=== PATIENT | male | born 1970 ===

== ENCOUNTER 2016-07-22 14:25 | Inpatient (IN) | payer MEDICAID ==
[2016-07-22 14:26] VITALS: BMI 24.3
[2016-07-22 14:38] VITALS: O2SAT 96
[2016-07-22 15:43] LABS: RBC URINE 1 /hpf (0-3); URINE BILIRUBIN NEGATIVE (NEGATIVE); URINE BLOOD NEGATIVE (NEGATIVE); URINE COLOR Yellow (YELLOW); URINE GLUCOSE (UA) NORMAL (Normal); URINE KETONE NEGATIVE (NEGATIVE); URINE LEUKOCYTE ESTERASE NEG Leu/uL (Negative); URINE PROTEIN NEGATIVE (NEGATIVE); URINE UROBILINOGEN NORMAL mg/dL (0.2-1.0); WBC URINE 2 /hpf (0-5)
[2016-07-22 15:44] LABS: BASO % 0.5 % (0.0-2.0); EOS % 0.4 % (0.0-4.0); HEMATOCRIT 33.6 % (35.0-51.0); LYMPH # 0.2 K/uL (1.0-4.3); LYMPH % 10.8 % (20.0-40.0); MEAN CORPUSCULAR HEMOGLOBIN 25.8 pg (27.0-31.0); MEAN CORPUSCULAR HGB CONC 32.5 g/dL (33.0-37.0); MEAN PLATELET VOLUME 8.2 fL (7.2-11.7); MONO # 0.2 K/uL (0.0-0.8); RED CELL DISTRIBUTION WIDTH 15.8 % (11.5-14.5)
[2016-07-22 15:48] LABS: CHLORIDE 102 mmol/L (98-107); POTASSIUM 4.1 mmol/L (3.6-5.2); SODIUM 139 mmol/L (132-148)
[2016-07-22 15:50] LABS: AST/SGOT 51 U/L (17-59); BILIRUBIN,TOTAL 0.8 mg/dL (0.2-1.3); CARBON DIOXIDE 23 mmol/L (22-30); GFR AFRICAN-AMERICAN > 60; MEAN CELL VOLUME 79.4 fL (80.0-94.0); WHITE BLOOD COUNT 2.1 K/uL (4.8-10.8)
[2016-07-22 15:51] LABS: ALB/GLOB RATIO 1.3 (1.0-2.1); ALCOHOL SERUM < 10 mg/dl (0-10); ALKALINE PHOSPHATASE 55 U/L (38-126); ALT/SGPT 31 U/L (21-72); BLOOD UREA NITROGEN 17 mg/dL (9-20); CALCIUM 8.2 mg/dl (8.6-10.4); GLUCOSE,RANDOM 137 mg/dL (75-110); TOTAL PROTEIN 6.3 g/dL (6.3-8.3)
--- NOTE | 2016-07-22 16:04 | C.PDOC ---
History Of Present Illness 45 y/o male with bipolar disorder presents to ed with suicidal ideation after learning that his son was killed in a car accident last night. pt sts he has not used his psych medications in one week since he ran out. 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 pt was taking lovenox. no sob.pt plan to stab himself. denies hi and ah. Time Seen by Provider: 07/22/16 15:15 Chief Complaint (Nursing): Psychiatric Evaluation Past Medical History Reviewed: Historical Data, Nursing Documentation, Vital Signs Vital Signs: Last Vital Signs Temp 98.2 F 07/22/16 14:35 Pulse 102 H 07/22/16 14:35 Resp 22 07/22/16 14:35 BP 137/87 07/22/16 14:35 Pulse Ox 96 07/22/16 17:29 - Medical History PMH: Anemia, Anxiety, Bipolar Disorder, Depression, Hepatitis (C), Personality Disorder, Schizophrenia, Seizures (Epileptic) Denies: Alzheimer's Disease, Dementia, Diabetes, HIV (Negative), HTN, Malignancy, Migraine, Multiple Sclerosis, Paranoia, Parkinson's Disease, Depression, Post Traumatic Stress Disorder, Chronic Kidney Disease, Sickle Cell Disease, Sexually Transmitted Disease, TIA Surgical History: Comment Only: CABG (?) Other Surgeries: cardiac valve repair - [facility] Procedures BONE MARROW BIOPSY (05/19/14) CLOSURE SKIN & SUBCUTANEOUS NEC (12/29/13) DETOXIFICATION SERVICES FOR SUBSTANCE ABUSE TREATMENT (11/20/15) DRAINAGE OF RIGHT INGUINAL REGION, PERCUTANEOUS APPROACH (05/15/16) DRUG DETOXIFICATION (10/06/14) EXCIS DEBRIDE OF WOUND, INFECT, OR BURN (12/29/13) GROUP BEEF GRADER FOR SUBSTANCE ABUSE TREATMENT, PSYCHOEDUCATION (12/29/15) GROUP PSYCHOTHERAPY (10/31/15) INDIVID PSYCHOTHERAP NEC (11/20/14) INDIVIDUAL PSYCHOTHERAPY, SUPPORTIVE (10/31/15) INJECT/INFUSE NEC (12/18/13) OTHER GROUP THERAPY (11/20/14) OTHER SKIN & SUBQ I D (12/29/13) PSYCHIA INTERV/EVAL NEC (08/11/14) PSYCHIAT DRUG THERAP NEC (08/28/14) TETANUS TOXOID ADMINIST (01/08/13) ULTRASONOGRAPHY OF RIGHT AND LEFT HEART, TRANSESOPHAGEAL (05/15/16) Family History: States: Unknown Family Hx - Social History Hx Tobacco Use: Yes Hx Alcohol Use: No Hx Substance Use: Yes (HEROIN) - Immunization History Hx Tetanus Toxoid Vaccination: Yes (01/08/13) Hx Influenza Vaccination: No Hx Pneumococcal Vaccination: No Review Of Systems Constitutional: Negative for: Fever, Chills Eyes: Negative for: Pain Cardiovascular: Negative for: Palpitations, Orthopnea Respiratory: Negative for: Cough, Shortness of Breath Gastrointestinal: Negative for: Nausea, Vomiting Neurological: Negative for: Weakness, Numbness Psych: Positive for: Anxiety, Suicidal ideation Physical Exam - Physical Exam Appears: Non-toxic, No Acute Distress Skin: Normal Color, Warm, Dry Head: Atraumatic, Normacephalic Chest: Symmetrical, No Deformity, No Tenderness, Other (vertical well healing scar from recent surgery) Cardiovascular: Rhythm Regular, No Murmur Respiratory: Normal Breath Sounds, No Rales, No Rhonchi, No Stridor Gastrointestinal/Abdominal: Bowel Sounds, Soft, No Tenderness Extremity: Normal ROM, No Pedal Edema, No Calf Tenderness Neurological/Psych: Oriented x3, Normal Speech, Normal Cognition, Other ( general shakiness to arms and legs, no seiszure like activity) ED Course And Treatment - Laboratory Results Result Diagrams: 07/22/16 15:36 07/22/16 15:36 ECG: Interpreted By Me, Viewed By Me ECG Rhythm: Sinus Rhythm Interpretation Of ECG: prlpomged qt 410 O2 Sat by Pulse Oximetry: 96 Medical Decision Making Medical Decision Making: pt medically cleared fpr psyciatric eval. recommend inpatient medicine consult for low wbc and elevate sugar of 137 Disposition Discussed With : Diamante Barahona Doctor Will See Patient In The: Hospital - Disposition Disposition: HOSPITALIZED Disposition Time: 17:23 Condition: STABLE - Clinical Impression Clinical Impression: Bipolar 1 disorder, depressed, Opioid use disorder, moderate, dependence Decision To Admit - Pt Status Changed To: Hospital Disposition Of: Inpatient - Admit Certification Admit to Inpatient:: After my assessment, the patient will require hospitalization for at least two midnights. This is because of the severity of symptoms shown, intensity of services needed, and/or the medical risk in this patient being treated as an outpatient. - InPatient: Physician Admission Certification: I certify that this patient requires 2 or more midnights of care for the following reason:: for psychiatric stabilization - . Bed Request Type: Psychiatry Admitting Physician: Diamante Barahona Patient Diagnosis: Bipolar 1 disorder, depressed, Opioid use disorder, moderate, dependence
--- NOTE | 2016-07-23 09:45 | PCM.PSYCH ---
Initial Psychiatric Evaluation - Initial Psychiatric Evaluation Type of Admission: Voluntary Legal Status: Capacity Chief Complaint (in patient's own words): I was feeling depressed and suicidal History of Present Illness and Precipitating Events: Patient is a 45 years old male, who lives alone and unemployed, came to the hospital with depressed mood and suicidal ideation with a plan to cut himself. Patient is well known to the service writer. He has been admitted at [facility] multiple times because of long history of depression, heroin use and cocaine use. Patient was just discharged [facility] last month. As per the patient he relapsed on heroin and cocaine and stopped taking his medications. Yesterday he injected almost 7 bags of heroin and 2 bags of cocaine, became increasingly depressed and developed suicidal ideation so he came to the hospital. He reports depressed mood, feelings of hopelessness and helplessness, poor sleep and poor appetite. He reports anhedonia and auditory hallucinations, to kill himself. He also reports persecutory delusions that someone is following him. However he denies any visual hallucinations and homicidal ideation. He denies any manic symptoms. He denies any substance abuse or drinking. Family psych history: (hospital chart) Brother- Unidentified psych condition, commit suicide Medical history: h/o heart murmur, h/o seizures, Hepatitis C Current Medications: Active Medications Generic Name Dose Route Start Last Admin Trade Name Freq PRN Reason Stop Dose Admin Aspirin 81 mg 07/23/16 10:00 Aspirin Chewable PO DAILY CORNEL Furosemide 40 mg 07/23/16 10:00 Lasix PO DAILY CORNEL Gabapentin 100 mg 07/22/16 18:00 07/22/16 23:00 Neurontin PO 100 mg TID CORNEL Administration Hydroxyzine HCl 50 mg 07/22/16 17:49 07/22/16 22:59 Atarax PO 50 mg Q6H PRN Administration Anxiety Levetiracetam 500 mg 07/22/16 18:00 07/22/16 23:00 Keppra PO 500 mg BID CORNEL Administration Metoprolol Tartrate 25 mg 07/22/16 18:00 07/22/16 23:45 Lopressor PO Not Given BID CORNEL Multivitamins 1 tab 07/23/16 10:00 Hexavitamin PO DAILY CORNEL Trazodone HCl 100 mg 07/22/16 22:00 07/22/16 22:59 Desyrel PO 100 mg HS CORNEL Administration Past Psychiatric History - Past Psychiatric History Previous Treatment History: Inpatient Pertinent Medical Hx (Current Medical&Sleep Prob, Allergies): Allergies Allergy/AdvReac Type Severity Reaction Status Date / Time haloperidol [From Haldol] Allergy REDNESS Verified 02/04/16 00:13 haloperidol lactate Allergy REDNESS Verified 02/04/16 00:13 [From Haldol] turkey Allergy red Uncoded 02/04/16 00:13 blotches Multivitamin [Multi-Vitamin Daily] 1 tab PO DAILY 05/13/16 Amoxicillin/Clavulanate [Augmentin 875 MG-125 MG Tab] 1 tab PO BID #14 tab 05/28 Aspirin [Aspirin Chewable] 81 mg PO DAILY #30 chew 05/28/16 Benztropine [Cogentin] 1 mg PO BID #60 tab 05/28/16 Furosemide [Lasix] 40 mg PO DAILY #30 tab 05/28/16 Gabapentin [Neurontin] 100 mg PO TID #90 cap 05/28/16 Metoprolol Tartrate [Lopressor] 25 mg PO BID #60 tab 05/28/16 QUEtiapine [SEROquel] 150 mg PO HS #30 tab 05/28/16 Sertraline [Zoloft] 50 mg PO DAILY #30 tab 05/28/16 hydrOXYzine HCl [Atarax] 50 mg PO QID #120 tab 05/28/16 levETIRAcetam [Keppra] 500 mg PO BID #60 tab 05/28/16 traZODone [Desyrel] 100 mg PO HS #30 tab 05/28/16 Cephalexin [Keflex] 500 mg PO BID #10 capsule 05/29/16 Review of Systems - Review of Systems All systems: reviewed and no additional remarkable complaints except - Psychiatric Psychiatric: Anxiety, Auditory Hallucinations, Change in Appetite, Depression, Irritability, Paranoia, Suicidal Ideation Mental Status Examination - Personal Presentation Personal Presentation: Looks stated age - Affect Affect: Constricted, Depressed - Motor Activity Motor Activity: Psychomotor Retardation - Reliability in Providing Information Reliability in Providing Information: Good - Speech Speech: Organized - Mood Mood: Depressed, Anxious - Formal Thought Process Formal Thought Process: Hallucinations, Delusions, Paranoia - Hallucinations/Delusions Hallucinations: Visual Delusions: Persecution - Obsessions/Compulsions Obsessions: No Compulsions: No - Cognitive Functions Orientation: Person, Place, Situation, Time Sensorium: Alert Attention/Concentration: Attentive Abstract Thinking: [place] Estimate of Intelligence: Below average Judgement: Imparied, as evidence by: Poor judgement, Imparied, as evidence by: Lack of insight into illness - Risk Risk: Suicidal, Withdrawal, Diminished functioning - Strength & Assets Inventory Strength & Assets Inventory: Family support - Limitations Limitations: Living alone DSM 5 DX - DSM 5 DSM 5 Diagnosis: Major depressive disorder recurrent, severe with psychotic features Opioid use disorder, severe Opioid withdrawal Cocaine use disorder, severe - Recommended/Plan of Treatment Treatment Recommendations and Plan of Treatment: Major depressive disorder recurrent, severe with psychotic features CBT Psychoeducation Supportive therapy, individual therapy Start Neurontin 100 mg by mouth 3 times a day Start Trazodone 100 mg PO Q HS Opioid use disorder severe CBT Psychoeducation Supportive therapy, individual therapy Use [place] for abstinence Opioid withdrawal CBT Psychoeducation Supportive therapy, individual therapy Clonidine when necessary Methadone taper Cocaine use disorder, severe Monitor signs and symptoms Use [place] for abstinence h/o Heart murmur, Continue prescribed medications (Lasix, Metoprolol) Monitor signs symptoms h/o Seizures, Continue prescribed medications (Keppra) Monitor signs symptoms Hepatitis C Monitor signs symptoms - Smoking Cessation Smoking Cessation Initiated: No
[2016-07-23] MEDS: Multiple Vitamins Tab PO SCH (12:43)
[2016-07-24] MEDS: Multiple Vitamins Tab PO SCH (09:14)
--- NOTE | 2016-07-24 11:31 | PCM.PYCHPN ---
Psychiatric Progress Note - Psychiatric Progress Note Patient seen today, length of contact: 15 min Patient Chief Complaint: I am feeling depressed Problems Identified/Issues Discussed: Patient seen and evaluated, chart reviewed and discussed with the nurse. Today patient reports depressed mood and remained isolated, withdrawn and confined to his room. However he reports withdrawal symptoms including cramps, back pain, nausea and sweating. He is taking medications and denies any side effects. Supportive therapy and psychoeducation were given. Medication Change: Yes (methadone taper) Medical Record Reviewed: Yes Mental Status Examination - Cognitive Function Orientation: Person, Place, Situation, Time Memory: Intact Attention: WNL Concentration: Poor Association: WNL Fund of Knowledge: Poor - Mood Mood: Depressed, Anxious - Affect Affect: Constricted, Depressed - Formal Thought Process Formal Thought Process: Hallucinations, Delusions, Paranoia - Suicidal Ideation Suicidal Ideation: No - Homicidal Ideation Homicidal Ideation: No Goal/Treatment Plan - Goal/Treatment Plan Need for Continued Stay: Discharge may exacerbated symptoms, Severe functional impairment Progress Toward Problem(s) and Goals/Treatment Plan: Major depressive disorder recurrent, severe with psychotic features CBT Psychoeducation Supportive therapy, individual therapy Neurontin 100 mg by mouth 3 times a day Trazodone 100 mg PO Q HS Opioid use disorder severe CBT Psychoeducation Supportive therapy, individual therapy Use [place] for abstinence Opioid withdrawal CBT Psychoeducation Supportive therapy, individual therapy Clonidine when necessary Methadone taper Cocaine use disorder, severe Monitor signs and symptoms Use [place] for abstinence h/o Heart murmur, Continue prescribed medications (Lasix, Metoprolol) Monitor signs symptoms h/o Seizures, Continue prescribed medications (Keppra) Monitor signs symptoms Hepatitis C Monitor signs symptoms - Smoking Cessation Smoking Cessation Initiated: No
[2016-07-25] MEDS: Multiple Vitamins Tab PO SCH (09:23)
--- NOTE | 2016-07-25 16:15 | PCM.PYCHPN ---
Psychiatric Progress Note - Psychiatric Progress Note Patient seen today, length of contact: 15 min Patient Chief Complaint: I'm still feeling depressed Problems Identified/Issues Discussed: Patient seen and evaluated, chart reviewed and discussed. As per staff patient remained isolated, withdrawn and depressed.He reports depressed mood but denies any feelings of hopelessness or helplessness. He reports improvement in his voices. He still reports withdrawal symptoms including cramps, back pain, and sweating. He is taking medications and denies any side effects. Supportive therapy and psychoeducation were given. Medication Change: Yes (methadone taper) Medical Record Reviewed: Yes Mental Status Examination - Cognitive Function Orientation: Person, Place, Situation, Time Memory: Intact Attention: WNL Concentration: Poor Association: WNL Fund of Knowledge: Poor - Mood Mood: Depressed, Anxious - Affect Affect: Constricted, Depressed - Speech Speech: Soft - Formal Thought Process Formal Thought Process: Delusions, Paranoia - Suicidal Ideation Suicidal Ideation: No - Homicidal Ideation Homicidal Ideation: No Goal/Treatment Plan - Goal/Treatment Plan Need for Continued Stay: Discharge may exacerbated symptoms, Severe functional impairment Progress Toward Problem(s) and Goals/Treatment Plan: Major depressive disorder recurrent, severe with psychotic features CBT Psychoeducation Supportive therapy, individual therapy Start Neurontin 100 mg by mouth 3 times a day Start Trazodone 100 mg PO Q HS Opioid use disorder severe CBT Psychoeducation Supportive therapy, individual therapy Use [place] for abstinence Opioid withdrawal CBT Psychoeducation Supportive therapy, individual therapy Clonidine when necessary Methadone taper Cocaine use disorder, severe Monitor signs and symptoms Use [place] for abstinence h/o Heart murmur, Continue prescribed medications (Lasix, Metoprolol) Monitor signs symptoms h/o Seizures, Continue prescribed medications (Keppra) Monitor signs symptoms Hepatitis C Monitor signs symptoms - Smoking Cessation Smoking Cessation Initiated: No
[2016-07-26] MEDS: Multiple Vitamins Tab PO SCH (09:41)
--- NOTE | 2016-07-26 15:23 | PCM.PYCHPN ---
Psychiatric Progress Note - Psychiatric Progress Note Patient seen today, length of contact: 17 min Patient Chief Complaint: I am not hearing any voices now Problems Identified/Issues Discussed: Patient seen and evaluated, chart reviewed and discussed. Patient reports improvement in his mood and improvement in the voices. He also reports improvement in the withdrawal symptoms. But he remained isolated and withdrawn. He is taking medications and denies any side effects. Supportive therapy and psychoeducation were given. Aftercare was discussed with the patient Medication Change: Yes (methadone taper, start Zoloft) Medical Record Reviewed: Yes Mental Status Examination - Cognitive Function Orientation: Person, Place, Situation, Time Memory: Intact Attention: WNL Concentration: Poor Association: WNL Fund of Knowledge: Poor - Mood Mood: Depressed, Anxious - Affect Affect: Constricted, Depressed - Speech Speech: Soft - Formal Thought Process Formal Thought Process: No Impairment - Suicidal Ideation Suicidal Ideation: No - Homicidal Ideation Homicidal Ideation: No Goal/Treatment Plan - Goal/Treatment Plan Need for Continued Stay: Discharge may exacerbated symptoms, Severe functional impairment Progress Toward Problem(s) and Goals/Treatment Plan: Major depressive disorder recurrent, severe with psychotic features CBT Psychoeducation Supportive therapy, individual therapy Neurontin 100 mg by mouth 2 times a day Trazodone 100 mg PO Q HS Opioid use disorder severe CBT Psychoeducation Supportive therapy, individual therapy Use [place] for abstinence Opioid withdrawal CBT Psychoeducation Supportive therapy, individual therapy Clonidine when necessary Methadone taper Cocaine use disorder, severe Monitor signs and symptoms Use [place] for abstinence h/o Heart murmur, Continue prescribed medications (Lasix, Metoprolol) Monitor signs symptoms h/o Seizures, Continue prescribed medications (Keppra) Monitor signs symptoms Hepatitis C Monitor signs symptoms - Smoking Cessation Smoking Cessation Initiated: No
[2016-07-27] MEDS: Multiple Vitamins Tab PO SCH (10:55)
--- NOTE | 2016-07-27 13:43 | PCM.PYCHPN ---
Psychiatric Progress Note - Psychiatric Progress Note Patient seen today, length of contact: 17 min Patient Chief Complaint: I m feeling much better Problems Identified/Issues Discussed: Patient seen and evaluated, chart reviewed and discussed. Patient reports improvement in the depressive symptoms and the withdrawal symptoms. He wants to go back to live with his father in [place]. He is not hallucinating anymore and he has started coming out of his room and has started socializing. He denies any suicidal ideation or homicidal ideation .He is taking medications and denies any side effects. Supportive therapy and psychoeducation were given. Medication Change: No Medical Record Reviewed: Yes Mental Status Examination - Cognitive Function Orientation: Person, Place, Situation, Time Memory: Intact Attention: WNL Concentration: WNL Association: WNL Fund of Knowledge: Poor - Mood Mood: Anxious - Affect Affect: Constricted, Depressed - Speech Speech: Soft - Formal Thought Process Formal Thought Process: No Impairment - Suicidal Ideation Suicidal Ideation: No - Homicidal Ideation Homicidal Ideation: No Goal/Treatment Plan - Goal/Treatment Plan Need for Continued Stay: Discharge may exacerbated symptoms, Severe functional impairment Progress Toward Problem(s) and Goals/Treatment Plan: Major depressive disorder recurrent, severe with psychotic features CBT Psychoeducation Supportive therapy, individual therapy Neurontin 100 mg by mouth 2 times a day Trazodone 100 mg PO Q HS Zoloft 50 mg PO Daily Opioid use disorder severe CBT Psychoeducation Supportive therapy, individual therapy Use [place] for abstinence Opioid withdrawal CBT Psychoeducation Supportive therapy, individual therapy Clonidine when necessary Methadone taper Cocaine use disorder, severe Monitor signs and symptoms Use [place] for abstinence h/o Heart murmur, Continue prescribed medications (Lasix, Metoprolol) Monitor signs symptoms h/o Seizures, Continue prescribed medications (Keppra) Monitor signs symptoms Hepatitis C Monitor signs symptoms - Smoking Cessation Smoking Cessation Initiated: No
[2016-07-27 16:18] VITALS: PULSE 72
[2016-07-28 06:58] VITALS: RESP 18; TEMP 98.1
[2016-07-28] MEDS: Multiple Vitamins Tab PO SCH (10:26)
[2016-07-28 10:34] VITALS: BP 128/89
--- NOTE | 2016-07-28 10:34 | PCM.PYCHDC ---
Mental Status Examination - Mental Status Examination Orientation: Person, Place, Situation, Time Memory: Intact Mood: Neutral Affect: Constricted Speech: Soft Attention: WNL Concentration: WNL Association: WNL Fund of Knowledge: WNL Formal Thought Process: No Impairment Description of patient's judgement and insight: good, fair Psychotic Thoughts and Behaviors: denies any AVH Suicidal Ideation: No Current Homicidal Ideation?: No Discharge Summary - Discharge Note Reason for Hospitalization: Patient is a 45 years old male, who lives alone and unemployed, came to the hospital with depressed mood and suicidal ideation with a plan to cut himself. Patient is well known to the data analyst report writer. He has been admitted at [facility] multiple times because of long history of depression, heroin use and cocaine use. Patient was just discharged [facility] last month. As per the patient he relapsed on heroin and cocaine and stopped taking his medications. Yesterday he injected almost 7 bags of heroin and 2 bags of cocaine, became increasingly depressed and developed suicidal ideation so he came to the hospital. He reports depressed mood, feelings of hopelessness and helplessness, poor sleep and poor appetite. He reports anhedonia and auditory hallucinations, to kill himself. He also reports persecutory delusions that someone is following him. However he denies any visual hallucinations and homicidal ideation. He denies any manic symptoms. He denies any substance abuse or drinking. Family psych history: (hospital chart) Brother- Unidentified psych condition, commit suicide Medical history: h/o heart murmur, h/o seizures, Hepatitis C Consultations:: List each consultation separately and include: 1. Reason for request. 2. Findings. 3. Follow-up Summary of Hospital Course include:: 1. Description of specific treatment plan utilized for patients during their course of treatmen. 2. Summarize the time- course for resolution of acute symptoms and/or regressed behaviors. 3. Describe issues identified and worked on during hospitalization. 4. Describe medication utilized. 5. Describe medical problems identified and treated. 6. Reassessment of suicide risk Summary of Hospital Course: During the course of his stay, patient (pt) started progressively improving and he no longer remained irritable, depressed, and suicidal. His mood was improved and he started attending groups and meetings and started socializing. He no longer had any withdrawal symptoms. Patient denied any feelings of hopelessness, helplessness, and worthlessness, denied any problem with the sleep or appetite, denied suicidal ideation or homicidal ideation. Pt denied any auditory or visual hallucinations. Some changes were made in his current medications and patient was discharged on following medications. He tolerated these medications very well and denied any side effects. - Final Diagnosis (DSM 5) Condition upon Discharge: STABLE DSM 5: Major depressive disorder recurrent, severe with psychotic features Opioid use disorder severe Opioid withdrawal Cocaine use disorder, severe Disposition: HOME/ ROUTINE Follow-up Treatment Plan: Education: Pt was educated and counseled about the risks and benefits of taking and not taking medications. Pt was educated and counseled about the risks of drinking and abusing drugs. Pt was educated and counseled to go to the ER or call 911 if pt develop suicidal ideation or homicidal ideation, worsening of symptoms or severe side effects of the meds. Prescriptions/Medication Reconciliation: traZODone [Desyrel] 100 mg PO HS #30 tab levETIRAcetam [Keppra] 500 mg PO BID #60 tab Gabapentin [Neurontin] 100 mg PO BID #60 capsule Sertraline [Zoloft] 50 mg PO DAILY #30 tab - Smoking Cessation Smoking Cessation Medication prescribed: No - Antipsychotic Medications Pt discharged on 2 or more routine antipsychotic medications: No
== END 2016-07-28 11:30 | disposition home or self-care (01) | DRG 430 ==
LOC: C.ER 14:25 → C.5E 17:27
PROVIDERS: ADMIT Psychiatry & Neurology Psychiatry; ATTEND Psychiatry & Neurology Psychiatry
PROC: GZ3ZZZZ Medication Management (ICD-10-PCS; principal; 2016-07-22)
PROC: HZ36ZZZ Individual Counseling for Substance Abuse Treatment, Psychoeducation (ICD-10-PCS; 2016-07-22)
PROC: HZ56ZZZ Individual Psychotherapy for Substance Abuse Treatment, Psychoeducation (ICD-10-PCS; 2016-07-22)
PROC: HZ59ZZZ Individual Psychotherapy for Substance Abuse Treatment, Supportive (ICD-10-PCS; 2016-07-22)
PROC: HZ89ZZZ Medication Management for Substance Abuse Treatment, Other Replacement Medication (ICD-10-PCS; 2016-07-22)
PROC: GZHZZZZ Group Psychotherapy (ICD-10-PCS; 2016-07-22)
PROC: GZ56ZZZ Individual Psychotherapy, Supportive (ICD-10-PCS; 2016-07-22)
DX: F33.3 Major depressive disorder, recurrent, severe with psychotic symptoms (principal); R45.851 Suicidal ideations; F14.20 Cocaine dependence, uncomplicated; F11.23 Opioid dependence with withdrawal; B18.2 Chronic viral hepatitis C; R01.1 Cardiac murmur, unspecified; G40.909 Epilepsy, unspecified, not intractable, without status epilepticus; F17.210 Nicotine dependence, cigarettes, uncomplicated

== ENCOUNTER 2016-08-12 23:32 | Emergency (ER) | payer MEDICAID ==
[2016-08-12 23:33] VITALS: BMI 24.3
--- NOTE | 2016-08-13 00:26 | C.PDOC ---
History Of Present Illness Patient is a 45 year old male who presents to the ER with suicidal ideation for the past few days. Patient states he wants to cut himself. Patient has a PMHx of psychiatric disorder. Has no physical complaints at this time. Time Seen by Provider: 08/12/16 23:52 Chief Complaint (Nursing): Psychiatric Evaluation History Per: Patient History/Exam Limitations: no limitations Onset/Duration Of Symptoms: Hrs Current Symptoms Are (Timing): Still Present Suicide/Self Injury Attempted (Context): None Modifying Factor(s): None Associated Symptoms: Suicidal Thoughts, Suicidal Plan Past Medical History Reviewed: Historical Data, Nursing Documentation, Vital Signs Vital Signs: Last Vital Signs Temp 98.2 F 08/13/16 02:03 Pulse 68 08/13/16 02:03 Resp 17 08/13/16 02:03 BP 136/63 08/13/16 02:03 Pulse Ox 97 08/13/16 03:21 - Medical History PMH: Anemia, Anxiety, Bipolar Disorder, CHF, Depression, Hepatitis (C), Personality Disorder, Schizophrenia, Seizures (Epileptic) Surgical History: Comment Only: CABG (?) - [facility] Procedures BONE MARROW BIOPSY (05/19/14) CLOSURE SKIN & SUBCUTANEOUS NEC (12/29/13) DETOXIFICATION SERVICES FOR SUBSTANCE ABUSE TREATMENT (11/20/15) DRAINAGE OF RIGHT INGUINAL REGION, PERCUTANEOUS APPROACH (05/15/16) DRUG DETOXIFICATION (10/06/14) EXCIS DEBRIDE OF WOUND, INFECT, OR BURN (12/29/13) GROUP RESIDENTIAL INSURANCE INSPECTOR FOR SUBSTANCE ABUSE TREATMENT, PSYCHOEDUCATION (12/29/15) GROUP PSYCHOTHERAPY (07/22/16) INDIV RESIDENTIAL INSURANCE INSPECTOR FOR SUBSTANCE ABUSE TREATMENT, PSYCHOEDUCATION (07/22/16) INDIV PSYCHOTHERAPY FOR SUBSTANCE ABUSE TREATMENT, SUPPORT (07/22/16) INDIV PSYCHOTHERAPY FOR SUBSTANCE ABUSE, PSYCHOEDUCATION (07/22/16) INDIVID PSYCHOTHERAP NEC (11/20/14) INDIVIDUAL PSYCHOTHERAPY, SUPPORTIVE (07/22/16) INJECT/INFUSE NEC (12/18/13) MEDICATION MANAGEMENT (07/22/16) MEDS MGMT FOR SUBSTANCE ABUSE TREATMENT, OTH REPL MED (07/22/16) OTHER GROUP THERAPY (11/20/14) OTHER SKIN & SUBQ I D (12/29/13) PSYCHIA INTERV/EVAL NEC (08/11/14) PSYCHIAT DRUG THERAP NEC (08/28/14) TETANUS TOXOID ADMINIST (01/08/13) ULTRASONOGRAPHY OF RIGHT AND LEFT HEART, TRANSESOPHAGEAL (05/15/16) Family History: States: Unknown Family Hx - Social History Hx Tobacco Use: Yes Hx Alcohol Use: No Hx Substance Use: Yes - Immunization History Hx Tetanus Toxoid Vaccination: Yes (01/08/13) Hx Influenza Vaccination: No Hx Pneumococcal Vaccination: No Review Of Systems Constitutional: Negative for: Fever, Chills Gastrointestinal: Negative for: Nausea, Vomiting, Diarrhea Psych: Positive for: Suicidal ideation Physical Exam - Physical Exam Appears: Well, Non-toxic, Other (Verbalizing about hurting himself) Skin: Normal Color, Warm, Dry Head: Atraumatic, Normacephalic Oral Mucosa: Moist Chest: Symmetrical, No Tenderness Cardiovascular: Rhythm Regular, No Murmur Respiratory: Normal Breath Sounds, No Rales, No Rhonchi, No Wheezing Gastrointestinal/Abdominal: Soft, No Tenderness Neurological/Psych: Oriented x3, Normal Speech, Normal Cognition, Other (Alert, concious.) ED Course And Treatment - Laboratory Results Result Diagrams: 08/13/16 00:35 08/13/16 00:35 Interpretation Of Abnormal: Patient has history of chronic leucopenia as noted from old charts reviewed. O2 Sat by Pulse Oximetry: 97 (Room air) Pulse Ox Interpretation: Normal Progress Note: Blood work and urinalysis ordered. Dr. Dunbar was notified, patient was seen by crisis who cleared him for discharge and advised him to follow up at clinic. Disposition Discussed With : Diamante Barahona Counseled Patient/Family Regarding: Diagnosis - Disposition Referrals: [facility] at [facility] [Outside] Disposition: HOME/ ROUTINE Disposition Time: 06:00 Condition: STABLE Instructions: Depression (DC), Narcotic Abuse (ED), Polysubstance Abuse (ED) - POA Present On Arrival: None - Clinical Impression Clinical Impression: Polysubstance abuse, Opiate abuse, continuous, Leucopenia, Depressive disorder - Scribe Statement The provider has reviewed the documentation as recorded by the Scribe Mor Kee All medical record entries made by the Scribe were at my direction and personally dictated by me. I have reviewed the chart and agree that the record accurately reflects my personal performance of the history, physical exam, medical decision making, and the department course for this patient. I have also personally directed, reviewed, and agree with the discharge instructions and disposition.
[2016-08-13 00:42] LABS: BASO % 0.2 % (0.0-2.0); EOS % 0.6 % (0.0-4.0); HEMATOCRIT 30.7 % (35.0-51.0); LYMPH # 0.4 K/uL (1.0-4.3); LYMPH % 25.4 % (20.0-40.0); MEAN CORPUSCULAR HEMOGLOBIN 26.3 pg (27.0-31.0); MEAN CORPUSCULAR HGB CONC 33.8 g/dL (33.0-37.0); MEAN PLATELET VOLUME 6.8 fL (7.2-11.7); MONO # 0.2 K/uL (0.0-0.8); MONO % 13.8 % (0.0-10.0); NRBC % 0.1 % (0.0-2.0); RED CELL DISTRIBUTION WIDTH 17.4 % (11.5-14.5)
[2016-08-13 00:48] LABS: CHLORIDE 107 mmol/L (98-107)
[2016-08-13 00:49] LABS: POTASSIUM 3.4 mmol/L (3.6-5.2); SODIUM 143 mmol/L (132-148); WHITE BLOOD COUNT 1.6 K/uL (4.8-10.8)
[2016-08-13 00:51] LABS: ALB/GLOB RATIO 1.2 (1.0-2.1); AST/SGOT 42 U/L (17-59); BILIRUBIN,TOTAL 0.8 mg/dL (0.2-1.3); CARBON DIOXIDE 24 mmol/L (22-30); GFR AFRICAN-AMERICAN > 60; TOTAL PROTEIN 5.9 g/dL (6.3-8.3)
[2016-08-13 00:52] LABS: RBC URINE 2 /hpf (0-3); URINE BILIRUBIN NEGATIVE (NEGATIVE); URINE BLOOD NEGATIVE (NEGATIVE); URINE COLOR Amber (YELLOW); URINE GLUCOSE (UA) NORMAL (Normal); URINE KETONE TRACE mg/dL (NEGATIVE); URINE LEUKOCYTE ESTERASE NEG Leu/uL (Negative); URINE PROTEIN 1+ mg/dL (NEGATIVE); WBC URINE 1 /hpf (0-5)
[2016-08-13 00:52] LABS: ALCOHOL SERUM < 10 mg/dl (0-10); ALKALINE PHOSPHATASE 51 U/L (38-126); ALT/SGPT 24 U/L (21-72); BLOOD UREA NITROGEN 16 mg/dL (9-20); CALCIUM 8.1 mg/dl (8.6-10.4); GLUCOSE,RANDOM 103 mg/dL (75-110)
[2016-08-13 06:13] VITALS: BP 131/70; PULSE 72; RESP 18; TEMP 97.8; O2SAT 98
== END 2016-08-13 06:13 | disposition home or self-care (01) ==
LOC: C.ER 23:32
DX: F32.89 Other specified depressive episodes (principal); F11.10 Opioid abuse, uncomplicated; F19.10 Other psychoactive substance abuse, uncomplicated; D72.819 Decreased white blood cell count, unspecified

== ENCOUNTER 2016-08-20 14:18 | Emergency (ER) | payer MEDICAID ==
[2016-08-20 14:18] VITALS: BMI 24.3
[2016-08-20 14:49] VITALS: RESP 18
--- NOTE | 2016-08-20 15:10 | C.PDOC ---
History Of Present Illness 45 year old patient, with a past medical history of anemia, anxiety, Hepatitis C , personality disorder, CHF, depression, bipolar disorder, schizophrenia, and epileptic seizures, is brought to the ED by ambulance complaining of suicidal ideation. Patient admits he has not been compliant with his medications for the past week. He was thinking of cutting himself. He has attempted it previously with a razor, but was stopped by his mother. Patient also attempted to swallow multiple pills about 1 year ago. Patient reports he is homeless and uses heroin and cocaine regularly. He notes he had heart surgery about 2months ago for endocarditis. Patient denies fever, chills, nausea, vomiting, or any other physical complaints at this time. Time Seen by Provider: 08/20/16 14:40 Chief Complaint (Nursing): Psychiatric Evaluation History Per: Patient, EMS History/Exam Limitations: no limitations Onset/Duration Of Symptoms: Other Current Symptoms Are (Timing): Still Present Suicide/Self Injury Attempted (Context): None Modifying Factor(s): Cocaine, Other (heroin) Severity: None Pain Scale Rating Of: 0 Associated Symptoms: Suicidal Thoughts, Suicidal Plan Recent travel outside of the [place]: No Additional History Per: EMS Past Medical History Reviewed: Historical Data, Nursing Documentation, Vital Signs Vital Signs: Last Vital Signs Temp 98.6 F 08/20/16 17:29 Pulse 84 08/20/16 17:29 Resp 18 08/20/16 17:29 BP 114/68 08/20/16 17:29 Pulse Ox 99 08/20/16 17:29 - Medical History PMH: Anemia, Anxiety, Bipolar Disorder, CHF, Depression, Hepatitis (C), Personality Disorder, Schizophrenia, Seizures (Epileptic) Surgical History: Comment Only: CABG (?) - [facility] Procedures BONE MARROW BIOPSY (05/19/14) CLOSURE SKIN & SUBCUTANEOUS NEC (12/29/13) DETOXIFICATION SERVICES FOR SUBSTANCE ABUSE TREATMENT (11/20/15) DRAINAGE OF RIGHT INGUINAL REGION, PERCUTANEOUS APPROACH (05/15/16) DRUG DETOXIFICATION (10/06/14) EXCIS DEBRIDE OF WOUND, INFECT, OR BURN (12/29/13) GROUP TELEPHONIC NURSE FOR SUBSTANCE ABUSE TREATMENT, PSYCHOEDUCATION (12/29/15) GROUP PSYCHOTHERAPY (07/22/16) INDIV TELEPHONIC NURSE FOR SUBSTANCE ABUSE TREATMENT, PSYCHOEDUCATION (07/22/16) INDIV PSYCHOTHERAPY FOR SUBSTANCE ABUSE TREATMENT, SUPPORT (07/22/16) INDIV PSYCHOTHERAPY FOR SUBSTANCE ABUSE, PSYCHOEDUCATION (07/22/16) INDIVID PSYCHOTHERAP NEC (11/20/14) INDIVIDUAL PSYCHOTHERAPY, SUPPORTIVE (07/22/16) INJECT/INFUSE NEC (12/18/13) MEDICATION MANAGEMENT (07/22/16) MEDS MGMT FOR SUBSTANCE ABUSE TREATMENT, OTH REPL MED (07/22/16) OTHER GROUP THERAPY (11/20/14) OTHER SKIN & SUBQ I D (12/29/13) PSYCHIA INTERV/EVAL NEC (08/11/14) PSYCHIAT DRUG THERAP NEC (08/28/14) TETANUS TOXOID ADMINIST (01/08/13) ULTRASONOGRAPHY OF RIGHT AND LEFT HEART, TRANSESOPHAGEAL (05/15/16) Family History: States: Unknown Family Hx - Social History Hx Tobacco Use: Yes Hx Alcohol Use: Yes Hx Substance Use: Yes - Immunization History Hx Tetanus Toxoid Vaccination: Yes (01/08/13) Hx Influenza Vaccination: No Hx Pneumococcal Vaccination: No Review Of Systems Except As Marked, All Systems Reviewed And Found Negative. Constitutional: Negative for: Fever, Chills Gastrointestinal: Negative for: Nausea, Vomiting Psych: Positive for: Anxiety, Suicidal ideation Physical Exam - Physical Exam Appears: Non-toxic, Unkempt, Other (disheveled) Skin: Warm, Dry Head: Atraumatic, Normacephalic Neck: Normal ROM, Supple Chest: Symmetrical, Other (midline cardiac scar) Cardiovascular: Rhythm Regular Respiratory: No Accessory Muscle Use Back: Normal Inspection Extremity: Normal ROM, Other (chronic edema to hands and feet) Neurological/Psych: Oriented x3 Gait: Steady ED Course And Treatment - Laboratory Results Result Diagrams: 08/20/16 16:47 08/20/16 16:47 O2 Sat by Pulse Oximetry: 100 (room air) Pulse Ox Interpretation: Normal Progress Note: Case discussed with Crisis who will evaluate the patient at bedside. Medical Decision Making Medical Decision Making: patient seen and cleared by crisis. Disposition - Disposition Disposition: HOME/ ROUTINE Disposition Time: 17:50 Condition: STABLE Instructions: Bipolar Disorder (ED) Forms: General Discharge Instructions - Clinical Impression Clinical Impression: Bipolar 1 disorder - Scribe Statement The provider has reviewed the documentation as recorded by the Scribe Bonnie Machado Provider Attestation: All medical record entries made by the Scribe were at my direction and personally dictated by me. I have reviewed the chart and agree that the record accurately reflects my personal performance of the history, physical exam, medical decision making, and the department course for this patient. I have also personally directed, reviewed, and agree with the discharge instructions and disposition.
[2016-08-20 16:53] LABS: BASO % 0.5 % (0.0-2.0); EOS % 0.5 % (0.0-4.0); HEMATOCRIT 35.3 % (35.0-51.0); LYMPH # 0.4 K/uL (1.0-4.3); LYMPH % 17.9 % (20.0-40.0); MEAN CELL VOLUME 78.7 fL (80.0-94.0); MEAN CORPUSCULAR HEMOGLOBIN 25.6 pg (27.0-31.0); MEAN CORPUSCULAR HGB CONC 32.5 g/dL (33.0-37.0); MEAN PLATELET VOLUME 7.7 fL (7.2-11.7); MONO # 0.3 K/uL (0.0-0.8); MONO % 11.8 % (0.0-10.0); NRBC % 0.1 % (0.0-2.0); WHITE BLOOD COUNT 2.4 K/uL (4.8-10.8)
[2016-08-20 17:00] LABS: CHLORIDE 101 mmol/L (98-107); POTASSIUM 3.6 mmol/L (3.6-5.2); SODIUM 137 mmol/L (132-148)
[2016-08-20 17:02] LABS: BILIRUBIN,TOTAL 1.1 mg/dL (0.2-1.3); CARBON DIOXIDE 24 mmol/L (22-30); GFR AFRICAN-AMERICAN > 60
[2016-08-20 17:03] LABS: ALB/GLOB RATIO 1.1 (1.0-2.1); ALKALINE PHOSPHATASE 60 U/L (38-126); ALT/SGPT 44 U/L (21-72); AST/SGOT 60 U/L (17-59); BLOOD UREA NITROGEN 10 mg/dL (9-20); CALCIUM 8.3 mg/dl (8.6-10.4); GLUCOSE,RANDOM 100 mg/dL (75-110); TOTAL PROTEIN 6.3 g/dL (6.3-8.3)
[2016-08-20 17:04] LABS: ALCOHOL SERUM < 10 mg/dl (0-10)
[2016-08-20 17:08] LABS: RBC URINE < 1 /hpf (0-3); URINE BACTERIA RARE (<OCC); URINE BILIRUBIN NEGATIVE (NEGATIVE); URINE BLOOD NEGATIVE (NEGATIVE); URINE COLOR Yellow (YELLOW); URINE GLUCOSE (UA) NORMAL (Normal); URINE KETONE NEGATIVE (NEGATIVE); URINE LEUKOCYTE ESTERASE NEG Leu/uL (Negative); URINE PROTEIN NEGATIVE (NEGATIVE); URINE UROBILINOGEN NORMAL mg/dL (0.2-1.0); WBC URINE < 1 /hpf (0-5)
[2016-08-20 17:51] VITALS: O2SAT 100
[2016-08-20 18:04] VITALS: BP 123/72; PULSE 82; TEMP 98.5
== END 2016-08-20 18:06 | disposition home or self-care (01) ==
LOC: C.ER 14:18
DX: F31.9 Bipolar disorder, unspecified (principal)

== ENCOUNTER 2016-09-16 00:29 | Emergency (ER) | payer MEDICAID ==
[2016-09-16 00:29] VITALS: BMI 24.3
[2016-09-16 00:44] VITALS: O2SAT 98
--- NOTE | 2016-09-16 00:52 | C.PDOC ---
History Of Present Illness Patient is a 46 year old male who presents to the ER with depression and suicidal ideation. Patient states he is homeless and ran out of his medications 2 weeks ago. Denies any physical complaints at this time. Time Seen by Provider: 09/16/16 00:45 Chief Complaint (Nursing): Psychiatric Evaluation History Per: Patient History/Exam Limitations: no limitations Onset/Duration Of Symptoms: Hrs Current Symptoms Are (Timing): Still Present Suicide/Self Injury Attempted (Context): None Modifying Factor(s): None Associated Symptoms: Depression, Suicidal Thoughts. denies: Suicidal Plan Recent travel outside of the [place]: No Past Medical History Reviewed: Historical Data, Nursing Documentation, Vital Signs Vital Signs: Last Vital Signs Temp 98.5 F 09/16/16 00:37 Pulse 86 09/16/16 02:57 Resp 12 09/16/16 02:57 BP 112/72 09/16/16 02:57 Pulse Ox 98 09/16/16 04:18 - Medical History PMH: Anemia, Anxiety, Bipolar Disorder, CHF, Depression, Hepatitis (C), Personality Disorder, Schizophrenia, Seizures (Epileptic) Surgical History: Comment Only: CABG (?) Other Surgeries: CABG - [facility] Procedures BONE MARROW BIOPSY (05/19/14) CLOSURE SKIN & SUBCUTANEOUS NEC (12/29/13) DETOXIFICATION SERVICES FOR SUBSTANCE ABUSE TREATMENT (11/20/15) DRAINAGE OF RIGHT INGUINAL REGION, PERCUTANEOUS APPROACH (05/15/16) DRUG DETOXIFICATION (10/06/14) EXCIS DEBRIDE OF WOUND, INFECT, OR BURN (12/29/13) GROUP MATERIAL REQUIREMENTS WORKER FOR SUBSTANCE ABUSE TREATMENT, PSYCHOEDUCATION (12/29/15) GROUP PSYCHOTHERAPY (07/22/16) INDIV MATERIAL REQUIREMENTS WORKER FOR SUBSTANCE ABUSE TREATMENT, PSYCHOEDUCATION (07/22/16) INDIV PSYCHOTHERAPY FOR SUBSTANCE ABUSE TREATMENT, SUPPORT (07/22/16) INDIV PSYCHOTHERAPY FOR SUBSTANCE ABUSE, PSYCHOEDUCATION (07/22/16) INDIVID PSYCHOTHERAP NEC (11/20/14) INDIVIDUAL PSYCHOTHERAPY, SUPPORTIVE (07/22/16) INJECT/INFUSE NEC (12/18/13) MEDICATION MANAGEMENT (07/22/16) MEDS MGMT FOR SUBSTANCE ABUSE TREATMENT, OTH REPL MED (07/22/16) OTHER GROUP THERAPY (11/20/14) OTHER SKIN & SUBQ I D (09/13/14) PSYCHIA INTERV/EVAL NEC (08/11/14) PSYCHIAT DRUG THERAP NEC (08/28/14) TETANUS TOXOID ADMINIST (01/08/13) ULTRASONOGRAPHY OF RIGHT AND LEFT HEART, TRANSESOPHAGEAL (05/15/16) Family History: States: Unknown Family Hx - Social History Hx Tobacco Use: Yes Hx Alcohol Use: No Hx Substance Use: Yes - Immunization History Hx Tetanus Toxoid Vaccination: Yes (01/08/13) Hx Influenza Vaccination: No Hx Pneumococcal Vaccination: No Review Of Systems Constitutional: Negative for: Fever, Chills Gastrointestinal: Negative for: Nausea, Vomiting, Diarrhea Physical Exam - Physical Exam Appears: Well, Non-toxic, No Acute Distress Skin: Normal Color, Warm, Dry Head: Atraumatic, Normacephalic Oral Mucosa: Moist Chest: Other (Sternotomy scar on midline chest form previous bypass surgery) Cardiovascular: Rhythm Regular, No Murmur Respiratory: Normal Breath Sounds, No Rales, No Rhonchi, No Wheezing Gastrointestinal/Abdominal: Soft, No Tenderness Neurological/Psych: Oriented x3, Normal Speech, Normal Cognition ED Course And Treatment - Laboratory Results Result Diagrams: 09/16/16 01:33 09/16/16 01:33 ECG: Interpreted By Me, Viewed By Me ECG Rhythm: Sinus Rhythm ECG Interpretation: No Acute Changes, Abnormal Interpretation Of ECG: prolonged QT interval Rate From EC O2 Sat by Pulse Oximetry: 98 Pulse Ox Interpretation: Normal Progress Note: Crisis called for evaluation. Disposition Discussed With : Mell Almazan (discharge-ff up) Counseled Patient/Family Regarding: Diagnosis - Disposition Referrals: [facility] at [facility] [Outside] Disposition: HOME/ ROUTINE Disposition Time: 04:15 Condition: STABLE Instructions: Polysubstance Abuse (ED) - POA Present On Arrival: None - Clinical Impression Clinical Impression: Polysubstance abuse - Scribe Statement The provider has reviewed the documentation as recorded by the Scribe Mor Kee All medical record entries made by the Scribe were at my direction and personally dictated by me. I have reviewed the chart and agree that the record accurately reflects my personal performance of the history, physical exam, medical decision making, and the department course for this patient. I have also personally directed, reviewed, and agree with the discharge instructions and disposition.
[2016-09-16 01:42] LABS: BASO % 0.4 % (0.0-2.0); EOS % 0.4 % (0.0-4.0); LYMPH # 0.3 K/uL (1.0-4.3); LYMPH % 8.3 % (20.0-40.0); MEAN CELL VOLUME 79.1 fL (80.0-94.0); MEAN CORPUSCULAR HEMOGLOBIN 26.1 pg (27.0-31.0); MEAN PLATELET VOLUME 7.3 fL (7.2-11.7); MONO # 0.2 K/uL (0.0-0.8); MONO % 7.4 % (0.0-10.0); PLATELET COUNT 78 K/uL (130-400); RED CELL DISTRIBUTION WIDTH 17.5 % (11.5-14.5); WHITE BLOOD COUNT 3.4 K/uL (4.8-10.8)
[2016-09-16 01:44] LABS: RBC URINE < 1 /hpf (0-3); URINE BILIRUBIN NEGATIVE (NEGATIVE); URINE BLOOD NEGATIVE (NEGATIVE); URINE COLOR Yellow (YELLOW); URINE GLUCOSE (UA) NORMAL (Normal); URINE KETONE NEGATIVE (NEGATIVE); URINE LEUKOCYTE ESTERASE NEG Leu/uL (Negative); URINE PROTEIN NEGATIVE (NEGATIVE); URINE UROBILINOGEN NORMAL mg/dL (0.2-1.0); WBC URINE < 1 /hpf (0-5)
[2016-09-16 01:48] LABS: CHLORIDE 100 mmol/L (98-107)
[2016-09-16 01:49] LABS: POTASSIUM 3.5 mmol/L (3.6-5.2); SODIUM 139 mmol/L (132-148)
[2016-09-16 01:51] LABS: ALKALINE PHOSPHATASE 71 U/L (38-126); ALT/SGPT 29 U/L (21-72); AST/SGOT 36 U/L (17-59); BILIRUBIN,TOTAL 0.8 mg/dL (0.2-1.3); BLOOD UREA NITROGEN 17 mg/dL (9-20); CALCIUM 8.3 mg/dl (8.6-10.4); CARBON DIOXIDE 27 mmol/L (22-30); GFR AFRICAN-AMERICAN > 60; GLUCOSE,RANDOM 84 mg/dL (75-110); TOTAL PROTEIN 6.5 g/dL (6.3-8.3)
[2016-09-16 01:52] LABS: ALCOHOL SERUM < 10 mg/dl (0-10)
[2016-09-16 02:25] LABS: NEUTROPHIL 83 % (50-75); TOTAL CELLS COUNTED 100
[2016-09-16 05:57] VITALS: BP 114/65; PULSE 74; RESP 18; TEMP 98.4
--- NOTE | 2016-09-17 20:09 | CARD ---
APPROVED REPORT EKG Measurement Heart [id number] <Conclusion> Normal sinus rhythm Prolonged QT Abnormal ECG
== END 2016-09-16 06:21 | disposition home or self-care (01) ==
LOC: C.ER 00:29
DX: F19.10 Other psychoactive substance abuse, uncomplicated (principal)

== ENCOUNTER 2016-12-04 01:07 | Inpatient (IN) | payer MEDICAID, OTHER ==
[2016-12-04 01:08] VITALS: BMI 24.3
[2016-12-04 01:58] LABS: RBC URINE 9 /hpf (0-3); URINE BACTERIA RARE (<OCC); URINE BILIRUBIN NEGATIVE (NEGATIVE); URINE BLOOD NEGATIVE (NEGATIVE); URINE COLOR Amber (YELLOW); URINE GLUCOSE (UA) NORMAL (Normal); URINE KETONE TRACE mg/dL (NEGATIVE); URINE LEUKOCYTE ESTERASE NEG Leu/uL (Negative); URINE PROTEIN 1+ mg/dL (NEGATIVE); WBC URINE 3 /hpf (0-5)
--- NOTE | 2016-12-04 02:30 | C.PDOC ---
History Of Present Illness 46 year old male who presents to the ER with a complaint of feeling depressed and having suicidal thoughts that began tonight. Patient admits to heroin and cocaine abuse; last use was this morning. Denies physical complaints at this time. Chief Complaint (Nursing): Psychiatric Evaluation History Per: Patient History/Exam Limitations: no limitations Onset/Duration Of Symptoms: Hrs Current Symptoms Are (Timing): Still Present Suicide/Self Injury Attempted (Context): None Modifying Factor(s): Narcotics, Cocaine Associated Symptoms: Suicidal Thoughts. denies: Depression, Suicidal Plan Involuntary Hold By: None Recent travel outside of the [place]: No Past Medical History Reviewed: Historical Data, Nursing Documentation, Vital Signs Vital Signs: Last Vital Signs Temp 98.6 F 12/04/16 02:48 Pulse 92 H 12/04/16 02:48 Resp 16 12/04/16 02:48 BP 130/76 12/04/16 02:48 Pulse Ox 97 12/04/16 02:48 - Medical History PMH: Anemia, Anxiety, Bipolar Disorder, CHF, Depression, Hepatitis (C, B), HIV, Personality Disorder, Schizophrenia, Seizures (Epileptic) Surgical History: Comment Only: CABG (?) - [facility] Procedures BONE MARROW BIOPSY (05/19/14) CLOSURE SKIN & SUBCUTANEOUS NEC (12/29/13) DETOXIFICATION SERVICES FOR SUBSTANCE ABUSE TREATMENT (11/20/15) DRAINAGE OF RIGHT INGUINAL REGION, PERCUTANEOUS APPROACH (05/15/16) DRUG DETOXIFICATION (10/06/14) EXCIS DEBRIDE OF WOUND, INFECT, OR BURN (12/29/13) GROUP COLOR SEPARATION PHOTOGRAPHER FOR SUBSTANCE ABUSE TREATMENT, PSYCHOEDUCATION (12/29/15) GROUP PSYCHOTHERAPY (07/22/16) INDIV COLOR SEPARATION PHOTOGRAPHER FOR SUBSTANCE ABUSE TREATMENT, PSYCHOEDUCATION (07/22/16) INDIV PSYCHOTHERAPY FOR SUBSTANCE ABUSE TREATMENT, SUPPORT (07/22/16) INDIV PSYCHOTHERAPY FOR SUBSTANCE ABUSE, PSYCHOEDUCATION (07/22/16) INDIVID PSYCHOTHERAP NEC (11/20/14) INDIVIDUAL PSYCHOTHERAPY, SUPPORTIVE (07/22/16) INJECT/INFUSE NEC (12/18/13) MEDICATION MANAGEMENT (07/22/16) MEDS MGMT FOR SUBSTANCE ABUSE TREATMENT, OTH REPL MED (07/22/16) OTHER GROUP THERAPY (11/20/14) OTHER SKIN & SUBQ I D (12/29/13) PSYCHIA INTERV/EVAL NEC (08/11/14) PSYCHIAT DRUG THERAP NEC (08/28/14) TETANUS TOXOID ADMINIST (01/08/13) ULTRASONOGRAPHY OF RIGHT AND LEFT HEART, TRANSESOPHAGEAL (05/15/16) Family History: States: Unknown Family Hx - Social History Hx Tobacco Use: Yes Hx Alcohol Use: No Hx Substance Use: Yes - Immunization History Hx Tetanus Toxoid Vaccination: Yes (01/08/13) Hx Influenza Vaccination: No Hx Pneumococcal Vaccination: No Review Of Systems Constitutional: Negative for: Fever, Chills Gastrointestinal: Negative for: Nausea, Vomiting, Diarrhea Psych: Positive for: Suicidal ideation Physical Exam - Physical Exam Appears: Non-toxic, No Acute Distress, Other (Verbalizing suicidal ideation) Skin: Normal Color, Warm, Dry Head: Atraumatic, Normacephalic Oral Mucosa: Moist Chest: Symmetrical, No Tenderness Cardiovascular: Rhythm Regular, No Murmur Respiratory: Normal Breath Sounds, No Rales, No Rhonchi, No Wheezing Gastrointestinal/Abdominal: Soft, No Tenderness Neurological/Psych: Oriented x3, Normal Speech, Normal Cognition ED Course And Treatment - Laboratory Results Result Diagrams: 12/04/16 02:28 12/04/16 02:28 O2 Sat by Pulse Oximetry: 97 (Room air) Pulse Ox Interpretation: Normal Progress Note: Crisis notified. Disposition Discussed With Dr.: Adam Plaza Doctor Will See Patient In The: Hospital Counseled Patient/Family Regarding: Diagnosis - Disposition Disposition: HOSPITALIZED Disposition Time: 02:30 Condition: STABLE - POA Present On Arrival: None - Clinical Impression Clinical Impression: Schizoaffective disorder - Scribe Statement The provider has reviewed the documentation as recorded by the Scribjair Kee All medical record entries made by the Nghiaibjair were at my direction and personally dictated by me. I have reviewed the chart and agree that the record accurately reflects my personal performance of the history, physical exam, medical decision making, and the department course for this patient. I have also personally directed, reviewed, and agree with the discharge instructions and disposition.
[2016-12-04 02:40] LABS: CHLORIDE 103 mmol/L (98-107); SODIUM 139 mmol/L (132-148)
[2016-12-04 02:41] LABS: POTASSIUM 3.2 mmol/L (3.6-5.2)
[2016-12-04 02:43] LABS: ALKALINE PHOSPHATASE 68 U/L (38-126); ALT/SGPT 34 U/L (21-72); AST/SGOT 31 U/L (17-59); BILIRUBIN,TOTAL 0.9 mg/dL (0.2-1.3); BLOOD UREA NITROGEN 11 mg/dL (9-20); CALCIUM 8.3 mg/dl (8.6-10.4); CARBON DIOXIDE 25 mmol/L (22-30); GFR AFRICAN-AMERICAN > 60; GLUCOSE,RANDOM 115 mg/dL (75-110); TOTAL PROTEIN 6.3 g/dL (6.3-8.3)
[2016-12-04 02:44] LABS: ALCOHOL SERUM < 10 mg/dl (0-10)
[2016-12-04 02:46] LABS: BASO % 0.5 % (0.0-2.0); EOS % 1.1 % (0.0-4.0); HEMATOCRIT 28.3 % (35.0-51.0); LYMPH # 0.6 K/uL (1.0-4.3); LYMPH % 18.5 % (20.0-40.0); MEAN CELL VOLUME 79.2 fL (80.0-94.0); MEAN CORPUSCULAR HEMOGLOBIN 25.4 pg (27.0-31.0); MEAN CORPUSCULAR HGB CONC 32.1 g/dL (33.0-37.0); MEAN PLATELET VOLUME 7.4 fL (7.2-11.7); MONO # 0.3 K/uL (0.0-0.8); RED CELL DISTRIBUTION WIDTH 15.2 % (11.5-14.5); WHITE BLOOD COUNT 3.2 K/uL (4.8-10.8)
--- NOTE | 2016-12-04 04:00 | PCM.BM ---
<Balbir Briones - Last Filed: 12/04/16 03:58> Treatment Plan Problems - Problems identified on initial assessmt Schizoaffective D/O Date Initiated: 12/04/16 Time Initiated: 03:58 Assessment reference: NA Status: Active Depression Date Initiated: 12/04/16 Time Initiated: 03:59 Assessment reference: NA Status: Active Suicidal Ideation Date Initiated: 12/04/16 Time Initiated: 03:59 Assessment reference: NA Status: Active Substance Abuse Date Initiated: 12/04/16 Time Initiated: 04:00 Assessment reference: NA Status: Active Comment: Using Heroin and Cocaine by IV Treatment assets and liabiliti Patient Assests: cooperative, self-reliant, ADL independent, negotiates basic needs, cognitively intact Patient Liabilities: live alone, financial problems, poor support system, substance abuse, medical problems - Milieu Protocol Maintain good personal hygiene: daily Encourage regular showers, daily Remind patient to perform daily oral care, daily Assist patient to perform ADL's Maintain personal safety: every shift Educate patient to report safety concerns to staff, every shift Monitor environment for contraband/sharps Medication safety: Monitor for expected outcome, potential side effects: every shift, Assess barriers to learning: every shift, Assess readiness for medication education: every shift <Mihaela Nguyễn - Last Filed: 12/08/16 11:08> Family Contact Family involvement: Family/SO is involved Family contact: Patient declines to allow family contact at present - Goals for Treatment Patient goals for treatment: "I [facility] an outpatient program in [facility] Discharge/Continuing Care - Education Needs Education Needs: Patient Medication, Patient Coping Skills, Patient Placement options, Patient Community resources - Discharge Discharge Criteria: Tolerates medication w/o severe side effects, Free of Suicidal thoughts, No longer exhibiting s/s of withdrawal, Reduction of target symptoms Discharge to:: Home, With Family - Treatment Team Participation Discussed with Family/SO: No Was Patient/Family/SO present at Treatment Team Meeting: Yes
--- NOTE | 2016-12-04 19:07 | PCM.PSYCH ---
Initial Psychiatric Evaluation - Initial Psychiatric Evaluation Type of Admission: Voluntary Legal Status: Capacity Chief Complaint (in patient's own words): I was hearing voices and I came for help History of Present Illness and Precipitating Events: Patient is a 46 years old, single, unemployed, male, with history of major depressive disorder, opiate use disorder and cocaine use disorder, noncompliant with treatment, was admitted due to withdrawing from heroine and also auditory hallucinations command type to kill himself. Patient reported was noncompliant with treatment for some time. Feeling depressed with decreased sleep and appetite, hopelessness, helplessness. Started having suicidal ideations. No homicidal ideations. Reported history of 2 suicidal attempts by overdose on Seroquel. Also reported hearing voices telling him to kill himself. Patient has history of multiple admissions at [facility] Heroine: Started using at the age of 21 years, reported he was using 6 bags of heroin daily, IV, last use was yesterday. Cocaine: Started 21 years of age. Using daily, 2 bottles , IV. Last used yesterday. Doesn't smoke cigarettes. was born in [place]. Has 12th grade of education. Not working, on [employer]. Lives with his sister. Never , has one 13 years old son who lives with his mother. His height is 5 feet 10 inches and weight is 165 pounds. Current Medications: Active Medications Generic Name Dose Route Start Last Admin Trade Name Freq PRN Reason Stop Dose Admin Benztropine Mesylate 1 mg 12/04/16 16:57 Cogentin PO Q6 PRN Other Clonidine HCl 0.1 mg 12/04/16 16:52 Catapres PO Q8 PRN COWS Score More or Equal to 5 Dicyclomine HCl 20 mg 12/04/16 16:51 Bentyl PO Q8 PRN ABDOMINAL PAIN Gabapentin 100 mg 12/04/16 18:00 12/04/16 18:02 Neurontin PO 100 mg BID CORNEL Administration Hydroxyzine HCl 50 mg 12/04/16 03:57 12/04/16 04:12 Atarax PO 50 mg Q6H PRN Administration Anxiety Levetiracetam 500 mg 12/04/16 18:00 12/04/16 18:02 Keppra PO 500 mg BID CORNEL Administration Loperamide HCl 2 mg 12/04/16 16:52 Imodium PO Q8 PRN Diarrhea Methadone HCl 15 mg 12/05/16 10:30 Methadone PO 12/05/16 10:31 ONCE ONE Ondansetron HCl 4 mg 12/04/16 16:52 Zofran Tab PO Q8 PRN Nausea/Vomiting Sertraline HCl 50 mg 12/04/16 17:00 Zoloft PO DAILY CORNEL Trazodone HCl 100 mg 12/04/16 22:00 Desyrel PO HS [facility] Past Psychiatric History - Past Psychiatric History Previous Treatment History: Inpatient At [facility]: Mostly at [facility] History of Abuse: None reported History of ETOH/Drug Use: CC and HPI History of Family Illness: Reported his brother had history of bipolar and schizophrenia. Also reported his brother committed suicide by overdose on drugs Pertinent Medical Hx (Current Medical&Sleep Prob, Allergies): Allergies Allergy/AdvReac Type Severity Reaction Status Date / Time haloperidol [From Haldol] Allergy REDNESS Verified 09/16/16 00:44 turkey Allergy red Uncoded 09/16/16 00:44 blotches Benztropine [Cogentin] 1 mg PO BID #60 tab 05/28/16 Metoprolol Tartrate [Lopressor] 25 mg PO BID #60 tab 05/28/16 QUEtiapine [SEROquel] 150 mg PO HS #30 tab 05/28/16 traZODone [Desyrel] 100 mg PO HS #30 tab 05/28/16 Gabapentin [Neurontin] 100 mg PO BID #60 capsule 07/28/16 Sertraline [Zoloft] 50 mg PO DAILY #30 tab 07/28/16 levETIRAcetam [Keppra] 500 mg PO BID #60 tab 07/28/16 Hepatitis C Status post heart valve surgeries Review of Systems - Psychiatric Psychiatric: Depression Mental Status Examination - Personal Presentation Personal Presentation: Looks stated age - Affect Affect: Depressed - Motor Activity Motor Activity: Calm - Reliability in Providing Information Reliability in Providing Information: Fair - Speech Speech: Organized - Mood Mood: Depressed - Formal Thought Process Formal Thought Process: No Impairment - Hallucinations/Delusions Hallucinations: Other (None reported) Delusions: Other - Obsessions/Compulsions Obsessions: None Compulsions: None - Cognitive Functions Orientation: Person, Place, Situation, Time Sensorium: Alert Attention/Concentration: Attentive Abstract Thinking: [place] Estimate of Intelligence: Average Judgement: Intact, as evidence by: Insight regarding need for hospitalization Memory: Recent intact, as evidence by: 3/3 object recall, Remote intact, as evidenced by: Ability to recall historical events - Risk Risk: Withdrawal, Diminished functioning - Strength & Assets Inventory Strength & Assets Inventory: Family support, Cooperative - Limitations Limitations: Other DSM 5 DX - DSM 5 DSM 5 Diagnosis: Major depressive disorder recurrent severe with psychotic features Opiate use disorder severe Cocaine use disorder - Recommended/Plan of Treatment Treatment Recommendations and Plan of Treatment: Patient education Supportive therapy Methadone taper for opiate withdrawal symptoms kappra for seizure We'll start his discharge medications Other when necessary medications Projected ELOS: 8-10 days - Smoking Cessation Smoking Cessation Initiated: No Reason for not providing: Does not smoke cigarettes
--- NOTE | 2016-12-05 16:47 | PCM.PYCHPN ---
Psychiatric Progress Note - Psychiatric Progress Note Patient seen today, length of contact: 15 minutes Patient Chief Complaint: I'm feeling much better Problems Identified/Issues Discussed: Patient seen. Chart reviewed. Case discussed with the staff. Issues related to illness and treatment were discussed with the patient. Reported compliant with treatment with no adverse affects. Tolerating treatment very well. Reported feeling much better, with with little withdrawal symptoms. Patient needs more time for stabilization. At the time of evaluation, patient was awake alert oriented 3, had no delusions, no auditory or visual hallucinations, no suicidal ideations or homicidal ideations. Medical Problems: Hepatitis C Status post heart valve surgeries Diagnostic Results: Reviewed DSM 5 Symptoms Update: Improving with treatment Medication Change: No Medical Record Reviewed: Yes Mental Status Examination - Cognitive Function Orientation: Person, Place, Situation, Time Memory: Intact Attention: WNL Concentration: WNL Association: WNL Fund of Knowledge: WNL Decription of patient's judgement and insights: Fair - Mood Mood: Depressed (Less than before) - Affect Affect: Other (Appropriate) - Speech Speech: Appropriate - Formal Thought Process Formal Thought Process: No Impairment - Suicidal Ideation Suicidal Ideation: No - Homicidal Ideation Homicidal Ideation: No Goal/Treatment Plan - Goal/Treatment Plan Need for Continued Stay: Remain at risks for inpatient hospitalization, Discharge may exacerbated symptoms, Severe functional impairment Progress Toward Problem(s) and Goals/Treatment Plan: Patient education Supportive therapy Continue treatment as before Estimated Date of D/C: 12/11/16 - Smoking Cessation Smoking Cessation Initiated: No
--- NOTE | 2016-12-06 15:15 | PCM.PYCHPN ---
Psychiatric Progress Note - Psychiatric Progress Note Patient seen today, length of contact: 15 minutes Patient Chief Complaint: "I'm feeling much better." Problems Identified/Issues Discussed: The pt is seen, chart reviewed, case discussed with staff. The pt reports that medications are helping. The patient appears unkempt, but pleasant and sociable. He appears disorganized. He reports sleeping well and eating well He admits to racing thoughts He reports slight depression He denies suicidal or homicidal ideation's He denies hearing voices or visual hallucinations. The pt requests increasing his neurontin to 300 mg because of aches. Support given, CBT and [place] used briefly. Pt is improving slowly and needs more time. No SEs from medications, risks discussed. After care discussed. Medication Change: No Medical Record Reviewed: Yes Mental Status Examination - Cognitive Function Orientation: Person, Place, Situation, Time Memory: Intact Attention: WNL Concentration: Poor Association: WNL Fund of Knowledge: WNL - Mood Mood: Depressed (Less than before), Anxious - Affect Affect: Constricted, Other (Appropriate) - Speech Speech: Appropriate, Soft - Formal Thought Process Formal Thought Process: No Impairment - Suicidal Ideation Suicidal Ideation: No - Homicidal Ideation Homicidal Ideation: No Goal/Treatment Plan - Goal/Treatment Plan Need for Continued Stay: Remain at risks for inpatient hospitalization, Discharge may exacerbated symptoms, Severe functional impairment Progress Toward Problem(s) and Goals/Treatment Plan: Major depressive disorder recurrent severe with psychotic features Opiate use disorder severe Cocaine use disorder Patient education Supportive therapy Methadone taper for opiate withdrawal symptoms kappra for seizure We'll start his discharge medications Other when necessary medications Estimated Date of D/C: 12/11/16 - Smoking Cessation Smoking Cessation Initiated: No
[2016-12-07] MEDS ORDERED: Methadone 40 mg Tab PO ONE (02:35)
--- NOTE | 2016-12-07 10:10 | PCM.PYCHPN ---
Psychiatric Progress Note - Psychiatric Progress Note Patient seen today, length of contact: 15 minutes Patient Chief Complaint: "I'm feeling well now." Problems Identified/Issues Discussed: The pt is seen, chart reviewed, case discussed with staff. The pt reports that medications are helping. The pt admits to milder withdrawal symptoms; he reports having nausea, headaches , and body aches. Denies diarrhea, vomiting, or tremors. The pt reports feeling mildly depressed, but improved from yesterday. The pt is pleasant and sociable. He denies suicidal or homicidal ideation's. He reports eating well and sleeping well otherwise. Support given, CBT and [place] used briefly. Pt is improving slowly and needs more time. No SEs from medications, risks discussed. After care discussed. Medication Change: No Medical Record Reviewed: Yes Mental Status Examination - Cognitive Function Orientation: Person, Place, Situation, Time Memory: Intact Attention: WNL Concentration: Poor Association: WNL Fund of Knowledge: WNL - Mood Mood: Depressed (Less than before), Anxious - Affect Affect: Constricted, Other (Appropriate) - Speech Speech: Appropriate, Soft - Formal Thought Process Formal Thought Process: No Impairment - Suicidal Ideation Suicidal Ideation: No - Homicidal Ideation Homicidal Ideation: No Goal/Treatment Plan - Goal/Treatment Plan Need for Continued Stay: Remain at risks for inpatient hospitalization, Discharge may exacerbated symptoms, Severe functional impairment Progress Toward Problem(s) and Goals/Treatment Plan: Major depressive disorder recurrent severe with psychotic features Opiate use disorder severe Cocaine use disorder Patient education Supportive therapy Methadone taper for opiate withdrawal symptoms kappra for seizure We'll start his discharge medications Other when necessary medications Estimated Date of D/C: 12/11/16
--- NOTE | 2016-12-08 11:09 | PCM.PYCHPN ---
Psychiatric Progress Note - Psychiatric Progress Note Patient seen today, length of contact: 15 minutes Patient Chief Complaint: "I'm feeling well now." Problems Identified/Issues Discussed: The pt is seen, chart reviewed, case discussed with staff. The pt reports that medications are helping. The pt reports improvement in t withdrawal symptoms; but still reports having nausea, headaches, and body aches. Denies diarrhea, vomiting, or tremors. The pt reports feeling mildly depressed, but improved from yesterday. The pt is pleasant and sociable. He denies suicidal or homicidal ideation's. He reports eating well and sleeping well otherwise. Support given, CBT and [place] used briefly. Pt is improving slowly and needs more time. No SEs from medications, risks discussed. After care discussed. Medication Change: No Medical Record Reviewed: Yes Mental Status Examination - Cognitive Function Orientation: Person, Place, Situation, Time Memory: Intact Attention: WNL Concentration: Poor Association: WNL Fund of Knowledge: WNL - Mood Mood: Depressed (Less than before), Anxious - Affect Affect: Constricted, Other (Appropriate) - Speech Speech: Appropriate, Soft - Formal Thought Process Formal Thought Process: No Impairment - Suicidal Ideation Suicidal Ideation: No - Homicidal Ideation Homicidal Ideation: No Goal/Treatment Plan - Goal/Treatment Plan Need for Continued Stay: Remain at risks for inpatient hospitalization, Discharge may exacerbated symptoms, Severe functional impairment Progress Toward Problem(s) and Goals/Treatment Plan: Major depressive disorder recurrent severe with psychotic features Opiate use disorder severe Cocaine use disorder Patient education Supportive therapy Methadone taper for opiate withdrawal symptoms kappra for seizure We'll start his discharge medications Other when necessary medications Estimated Date of D/C: 12/11/16
--- NOTE | 2016-12-09 14:01 | PCM.PYCHPN ---
Psychiatric Progress Note - Psychiatric Progress Note Patient seen today, length of contact: 15 minutes Patient Chief Complaint: "I'm feeling mildly better." Problems Identified/Issues Discussed: The pt is seen, chart reviewed, case discussed with staff. The pt reports that medications are helping. He reports improvement in his mood and improvement in the the withdrawal symptoms. He denies any AVH and denies any suicidal or homicidal ideation's. He reports improvement in the sleep and appetite. No SEs from medications, risks discussed. Pt is improving slowly and needs more time. Support given, CBT and [place] used briefly. After care discussed. Medication Change: No Medical Record Reviewed: Yes Mental Status Examination - Cognitive Function Orientation: Person, Place, Situation, Time Memory: Intact Attention: WNL Concentration: Poor Association: WNL Fund of Knowledge: WNL - Mood Mood: Depressed (Less than before), Anxious - Affect Affect: Constricted, Other (Appropriate) - Speech Speech: Appropriate, Soft - Formal Thought Process Formal Thought Process: No Impairment - Suicidal Ideation Suicidal Ideation: No - Homicidal Ideation Homicidal Ideation: No Goal/Treatment Plan - Goal/Treatment Plan Need for Continued Stay: Remain at risks for inpatient hospitalization, Discharge may exacerbated symptoms, Severe functional impairment Progress Toward Problem(s) and Goals/Treatment Plan: Major depressive disorder recurrent severe with psychotic features Opiate use disorder severe Cocaine use disorder Patient education Supportive therapy Methadone taper for opiate withdrawal symptoms kappra for seizure We'll start his discharge medications Other when necessary medications Estimated Date of D/C: 12/11/16
--- NOTE | 2016-12-10 09:58 | PCM.PYCHPN ---
Psychiatric Progress Note - Psychiatric Progress Note Patient seen today, length of contact: 15 minutes Patient Chief Complaint: "I'm feeling well now." Problems Identified/Issues Discussed: The pt is seen, chart reviewed, case discussed with staff. Staff reports pt s getting better. The pt reports improvement in the mood and withdrawal symptoms. The pt reports feeling mildly depressed, but improved from yesterday. He denies suicidal or homicidal ideation's. He reports eating well and sleeping well otherwise. Support given, CBT and [place] used briefly. Pt is improving slowly and needs more time. No SEs from medications, risks discussed. After care discussed. Medication Change: No Medical Record Reviewed: Yes Mental Status Examination - Cognitive Function Orientation: Person, Place, Situation, Time Memory: Intact Attention: WNL Concentration: Poor Association: WNL Fund of Knowledge: WNL - Mood Mood: Depressed (Less than before), Anxious - Affect Affect: Constricted, Other (Appropriate) - Speech Speech: Appropriate, Soft - Formal Thought Process Formal Thought Process: No Impairment - Suicidal Ideation Suicidal Ideation: No - Homicidal Ideation Homicidal Ideation: No Goal/Treatment Plan - Goal/Treatment Plan Need for Continued Stay: Remain at risks for inpatient hospitalization, Discharge may exacerbated symptoms, Severe functional impairment Progress Toward Problem(s) and Goals/Treatment Plan: Major depressive disorder recurrent severe with psychotic features Opiate use disorder severe Cocaine use disorder Patient education Supportive therapy Methadone taper for opiate withdrawal symptoms kappra for seizure We'll start his discharge medications Other when necessary medications Estimated Date of D/C: 12/11/16
--- NOTE | 2016-12-11 10:52 | PCM.PYCHPN ---
Psychiatric Progress Note - Psychiatric Progress Note Patient seen today, length of contact: 15 minutes Patient Chief Complaint: "I'm feeling well now." Problems Identified/Issues Discussed: The pt is seen, chart reviewed, case discussed with staff. He reports improvement in his mood and improvement in the the withdrawal symptoms. He denies any AVH and denies any suicidal or homicidal ideation's. He reports improvement in the sleep and appetite. No SEs from medications, risks discussed. Pt is improving slowly and needs more time. Support given, CBT and [place] used briefly. After care discussed. Medication Change: No Medical Record Reviewed: Yes Mental Status Examination - Cognitive Function Orientation: Person, Place, Situation, Time Memory: Intact Attention: WNL Concentration: Poor Association: WNL Fund of Knowledge: WNL - Mood Mood: Depressed (Less than before), Anxious - Affect Affect: Constricted, Other (Appropriate) - Speech Speech: Appropriate, Soft - Formal Thought Process Formal Thought Process: No Impairment - Suicidal Ideation Suicidal Ideation: No - Homicidal Ideation Homicidal Ideation: No Goal/Treatment Plan - Goal/Treatment Plan Need for Continued Stay: Remain at risks for inpatient hospitalization, Discharge may exacerbated symptoms, Severe functional impairment Progress Toward Problem(s) and Goals/Treatment Plan: Major depressive disorder recurrent severe with psychotic features Opiate use disorder severe Cocaine use disorder Patient education Supportive therapy Methadone taper for opiate withdrawal symptoms kappra for seizure We'll start his discharge medications Other when necessary medications Estimated Date of D/C: 12/11/16
--- NOTE | 2016-12-12 04:14 | CP.PCM.HP ---
Addendum entered and electronically signed by Juni Castellano DO 12/12/16 09:31: Pt seen and examined in the morning at bedside. Pt said he last used IV drugs 8 days ago and last time he seized was 6 months ago. He was never treated for hepatitis. ABG shock panel obtained with lactate of 1.2. ID Dr. Trevino consulted for fever likely secondary to suspected sepsis and Heme Dr. Wisdom consulted for pancytopenia likely secondary to bone marrow suppression, help appreciated. BP was 82/34 and NS fluid bolus started. Will f/u BP after bolus. Vancomycin trough and ova/parasite ordered as well. Original Note: <Pernell Best - Last Filed: 12/12/16 06:52> History of Present Illness - History of Present Illness History of Present Illness: PGY-1 H&P for Dr. Garcia This is a 46 year old male with PMHx endocarditis s/p aortic valve replacement x2, seizures, heroin use disorder, cocaine use disorder, hepatitis B and C who was a rapid response in [facility] for fever and hypoxia. Patient originally came to the hospital for heroin withdrawal, SI, and auditory hallucinations. Patient earlier in the morning began feeling unwell. Patient complained of chills with intermittent cough producing white sputum. Patient also complaining of diarrhea. Staff took vitals and noted temperature of 103 and oxygenation of 86% . Therefore, METER REPAIRER called. Patient was transferred to telemetry where IV was inserted. Cultures and labwork were drawn. Fluids and IV antibiotics were started. 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 Admits to using heroin and cocaine both through IV in his neck Allergies: Haldol, turkey Fam Hx: non-contributory Present on Admission - Present on Admission Any Indicators Present on Admission: No Review of Systems - Constitutional Constitutional: Weakness. absent: Headache - EENT Eyes: absent: Change in Vision Ears: absent: Decreased Hearing - Cardiovascular Cardiovascular: absent: Chest Pain - Respiratory Respiratory: Cough. absent: Dyspnea, Wheezing - Gastrointestinal Gastrointestinal: Diarrhea. absent: Abdominal Pain, Bloating, Constipation, Nausea, Vomiting - Genitourinary Genitourinary: absent: Dysuria - Musculoskeletal Musculoskeletal: Back Pain - Neurological Neurological: Weakness. absent: Dizziness, Numbness, Headaches, Tingling Past Patient History - Infectious Disease Hx of Infectious Diseases: None - Tetanus Immunizations Tetanus Immunization: Unknown - Past Medical History & Family History Past Medical History?: Yes - Past Social History Smoking Status: Former Smoker - CARDIAC Hx Congestive Heart Failure: Yes - PULMONARY Hx Respiratory Disorders: No Hx Tuberculosis: No - NEUROLOGICAL Hx Seizures: Yes (Epileptic) - HEENT Hx HEENT Problems: No - RENAL Hx Chronic Kidney Disease: No - ENDOCRINE/METABOLIC Hx Endocrine Disorders: No - HEMATOLOGICAL/ONCOLOGICAL Hx Anemia: Yes Hx Human Immunodeficiency Virus (HIV): Yes - INTEGUMENTARY Hx Dermatological Problems: Yes Hx Cellulitis: Yes Other/Comment: Hx of abscesses to right arm and left side of neck - MUSCULOSKELETAL/RHEUMATOLOGICAL Hx Arthritis: No Hx Fractures: No Hx Osteoporosis: No Hx Rheumatoid Arthritis: No - GASTROINTESTINAL Hx Gastrointestinal Disorders: No - GENITOURINARY/GYNECOLOGICAL Hx Sexually Transmitted Disorders: No - PSYCHIATRIC Hx Substance Use: Yes - SURGICAL HISTORY Hx Coronary Artery Bypass Graft: (?) - ANESTHESIA Hx Anesthesia: Yes Hx Anesthesia Reactions: No Hx Malignant Hyperthermia: No Meds Allergies/Adverse Reactions: Allergies Allergy/AdvReac Type Severity Reaction Status Date / Time haloperidol [From Haldol] Allergy REDNESS Verified 09/16/16 00:44 turkey Allergy red Uncoded 09/16/16 00:44 blotches Physical Exam - Constitutional Appears: No Acute Distress - Head Exam Head Exam: ATRAUMATIC, NORMAL INSPECTION, NORMOCEPHALIC - Eye Exam Eye Exam: EOMI, PERRL - ENT Exam ENT Exam: Mucous Membranes Dry - Respiratory Exam Additional comments: Coarse breath sounds bilaterally - Cardiovascular Exam Cardiovascular Exam: Tachycardia, +S1, +S2, Systolic Murmur - GI/Abdominal Exam GI & Abdominal Exam: Normal Bowel Sounds, Soft. absent: Tenderness - Extremities Exam Extremities exam: Negative for: pedal edema, tenderness - Neurological Exam Neurological exam: Alert, CN II-XII Intact, Oriented x3 - Skin Skin Exam: Dry, Intact, Warm Additional comments: Midline scar on the sternum Results - Vital Signs Recent Vital Signs: Last Vital Signs Temp 98.1 F 12/10/16 15:27 Pulse 52 L 12/10/16 15:27 Resp 19 12/10/16 15:27 BP 108/66 12/10/16 15:27 Pulse Ox 99 12/06/16 07:43 - Labs Result Diagrams: 12/12/16 04:36 12/12/16 04:36 Assessment & Plan - Assessment and Plan (Free Text) Plan: Fever F/u CXR F/u Echo F/u blood cultures F/u urine cultures Vancomycin 1 gm Q12H Zosyn 3.375 gm Q6H NS 70 cc/hr Tylenol 650 mg PO Q6 prn fever. Due to history of hepatitis, consider switching to a different agent at some point. History of Seizures Continue Keppra 500 mg PO BID Continue Gabapentin 300 mg PO BID History of Depression Continue Zoloft 50 mg PO daily History of Hepatitis B & C Monitor LFTs. Currently WNL Pancytopenia Patient has known hypersplenism and pancytopenia dating back to prior admission. On old admission growth factors like Neupogen (Filgrastim) were recommended for low WBC. Prophylactic Measure Heparin and GI ppx held due to platelets SCDs for now - Date & Time Date: 12/12/16 Time: 05:00 <Dane Machado - Last Filed: 12/12/16 18:01> Results - Vital Signs Recent Vital Signs: Last Vital Signs Temp 98.4 F 12/12/16 15:21 Pulse 69 12/12/16 16:08 Resp 20 12/12/16 15:21 BP 98/56 L 12/12/16 15:21 Pulse Ox 98 12/12/16 15:21 - Labs Result Diagrams: 12/12/16 04:36 12/12/16 04:36 Labs: Laboratory Results - last 24 hr 12/12/16 12/12/16 12/12/16 04:36 04:36 07:08 WBC 1.6 L* RBC 3.50 L Hgb 9.0 L Hct 27.1 L MCV 77.6 L MCH 25.8 L MCHC 33.3 RDW 15.9 H Plt Count 48 L D Manual Plt Count MPV 9.3 Neut % (Auto) 84.2 H Lymph % (Auto) 11.8 L Cottle % (Auto) 3.1 Eos % (Auto) 0.4 Baso % (Auto) 0.5 Neut # 1.4 L Lymph # 0.2 L Cottle # 0.1 Eos # 0.0 Baso # 0.0 Neutrophils % (Manual) Band Neutrophils % Lymphocytes % (Manual) Monocytes % (Manual) Platelet Estimate Hypochromasia (manual) Poikilocytosis (manual Anisocytosis (manual) Microcytosis (manual) Ovalocytes Retic Count PT 14.2 H INR 1.3 APTT 32 Puncture Site pCO2 pO2 HCO3 ABG pH ABG Total CO2 ABG O2 Saturation ABG Base Excess Mehran Test ABG Potassium A-a O2 Difference Respiratory Index Glucose Lactate Liter Flow FiO2 Sodium 137 Potassium 4.2 Chloride 102 Carbon Dioxide 22 Anion Gap 18 BUN 13 Creatinine 0.7 L Est GFR ( Amer) > 60 Est GFR (Non-Af Amer) > 60 Random Glucose 117 H Calcium 8.3 L Ferritin Total Bilirubin 0.9 AST 38 ALT 47 Alkaline Phosphatase 94 Total Protein 5.8 L Albumin 2.6 L Globulin 3.3 Albumin/Globulin Ratio 0.8 L Vitamin B12 Folate Arterial Blood Potassium 12/12/16 12/12/16 12/12/16 08:26 10:45 10:45 WBC RBC Hgb Hct MCV MCH MCHC RDW Plt Count Manual Plt Count 46 L MPV Neut % (Auto) Lymph % (Auto) Cottle % (Auto) Eos % (Auto) Baso % (Auto) Neut # Lymph # Cottle # Eos # Baso # Neutrophils % (Manual) 63 Band Neutrophils % 19 H* Lymphocytes % (Manual) 8 L Monocytes % (Manual) 10 Platelet Estimate Decreased L Hypochromasia (manual) Slight Poikilocytosis (manual Slight Anisocytosis (manual) Slight Microcytosis (manual) Slight Ovalocytes Slight Retic Count 1.6 H PT INR APTT Puncture Site Rr pCO2 32 L pO2 97 HCO3 25.2 ABG pH 7.47 H ABG Total CO2 24.3 ABG O2 Saturation 99.2 H ABG Base Excess 0.3 Mehran Test Pos ABG Potassium 3.3 L A-a O2 Difference 56.0 Respiratory Index 0.6 Glucose 106 Lactate 1.2 Liter Flow 2.0 FiO2 27.0 Sodium 133.0 Potassium Chloride 108.0 H Carbon Dioxide Anion Gap BUN Creatinine Est GFR ( Amer) Est GFR (Non-Af Amer) Random Glucose Calcium Ferritin Total Bilirubin AST ALT Alkaline Phosphatase Total Protein Albumin Globulin Albumin/Globulin Ratio Vitamin B12 Folate Arterial Blood Potassium 3.3 L 12/12/16 10:45 WBC RBC Hgb Hct MCV MCH MCHC RDW Plt Count Manual Plt Count MPV Neut % (Auto) Lymph % (Auto) Cottle % (Auto) Eos % (Auto) Baso % (Auto) Neut # Lymph # Cottle # Eos # Baso # Neutrophils % (Manual) Band Neutrophils % Lymphocytes % (Manual) Monocytes % (Manual) Platelet Estimate Hypochromasia (manual) Poikilocytosis (manual Anisocytosis (manual) Microcytosis (manual) Ovalocytes Retic Count PT INR APTT Puncture Site pCO2 pO2 HCO3 ABG pH ABG Total CO2 ABG O2 Saturation ABG Base Excess Mehran Test ABG Potassium A-a O2 Difference Respiratory Index Glucose Lactate Liter Flow FiO2 Sodium Potassium Chloride Carbon Dioxide Anion Gap BUN Creatinine Est GFR ( Amer) Est GFR (Non-Af Amer) Random Glucose Calcium Ferritin 38.7 Total Bilirubin AST ALT Alkaline Phosphatase Total Protein Albumin Globulin Albumin/Globulin Ratio Vitamin B12 685 Folate 10.2 Arterial Blood Potassium Attending/Attestation - Attestation I have personally seen and examined this patient.: Yes I have fully participated in the care of the patient.: Yes I have reviewed all pertinent clinical information: Yes Notes (Text): 12/12/16 18:00 Patient was seen and examined at 8:45 AM History, Physical, Assessment and Plan, and Orders were thoroughly gone over with the Resident. Dane Machado D.O.
--- NOTE | 2016-12-12 04:20 | PCM.RRTMUL ---
<Pernell Best S - Last Filed: 12/12/16 04:23> NEEDLE PUNCH OPERATOR Nurses Assessment - Situation Location:: [facility] NEEDLE PUNCH OPERATOR Reason for Call: O2 Saturation below 90% NEEDLE PUNCH OPERATOR Called By: RN - IV IV Inserted during NEEDLE PUNCH OPERATOR?: No - Respiratory Oxygen Delivery Method:: Nasal Cannula Received Nebulizer Treatments:: No Was the Patient Ventilated with Bag/Mask 100% O2?: No Secretions Suctioned?: No Was the Patient Intubated?: No Was the Patient Placed on a Ventilator?: No - Diagnostic Test Ordered Chest X-Ray:: Yes - Vital Signs Temperature:: 103.5 F Oxygen Saturation:: 86 - Pedro Coma Scale Coma Scale Eye Opening:: Spontaneous Coma Scale Motor:: Obeys Commands Movement Coma Scale Verbal:: Oriented Coma Scale Total:: 15 - Constitutional Appears: In Acute Distress - Head Head Exam: ATRAUMATIC, NORMAL INSPECTION, NORMOCEPHALIC - Eyes Eye Exam: EOMI, PERRL - Respiratory Exam Respiratory Exam: Clear to Ausculation Bilateral. absent: Rales, Rhonchi, Wheezes - Cardiovascular Exam Cardiovascular Exam: Tachycardia, +S1, +S2, Murmur - Neurological Exam Neurological Exam: Alert, Awake, Oriented x3 Plan - B. Assessment of Findings&Treatment Plan NEEDLE PUNCH OPERATOR called for fever and hypoxia. Patient placed on nasal cannula. Portable CXR ordered. Patient transferred to Telemetry bed. IV line inserted. <Damion Garcia P - Last Filed: 12/13/16 07:37> Attending/Attestation - Attestation I have personally seen and examined this patient.: Yes I have fully participated in the care of the patient.: Yes I have reviewed all pertinent clinical information, including history, physical exam and plan: Yes Notes (Text): 46 M with twice AVR, for endocarditis, was in psych unit for depression and active ivda of heroin and cocaine, responded to NEEDLE PUNCH OPERATOR for fever 103, spo2 86% on RA, improved to mid 90's on 2lit, patient transferred to medical floor for sepsis, w/u and treatment of the fever. See medical note for details.
[2016-12-12] MEDS: Sodium Chloride 0.9% 1,000 ML IV SCH ×3 (04:41→18:54)
[2016-12-12] MEDS: Piperacillin/Tazobact 3.375 GM in Sodium Chloride 100 ML IVPB SCH ×4 (04:44→21:36)
[2016-12-12 04:48] LABS: BASO % 0.5 % (0.0-2.0); CHLORIDE 102 mmol/L (98-107); EOS % 0.4 % (0.0-4.0); HEMATOCRIT 27.1 % (35.0-51.0); LYMPH # 0.2 K/uL (1.0-4.3); LYMPH % 11.8 % (20.0-40.0); MEAN CELL VOLUME 77.6 fL (80.0-94.0); MEAN CORPUSCULAR HEMOGLOBIN 25.8 pg (27.0-31.0); MEAN CORPUSCULAR HGB CONC 33.3 g/dL (33.0-37.0); MEAN PLATELET VOLUME 9.3 fL (7.2-11.7); MONO # 0.1 K/uL (0.0-0.8); MONO % 3.1 % (0.0-10.0); POTASSIUM 4.2 mmol/L (3.6-5.2); RED CELL DISTRIBUTION WIDTH 15.9 % (11.5-14.5); SODIUM 137 mmol/L (132-148)
[2016-12-12 04:50] LABS: ALB/GLOB RATIO 0.8 (1.0-2.1); AST/SGOT 38 U/L (17-59); BILIRUBIN,TOTAL 0.9 mg/dL (0.2-1.3); CARBON DIOXIDE 22 mmol/L (22-30); GFR AFRICAN-AMERICAN > 60; TOTAL PROTEIN 5.8 g/dL (6.3-8.3)
[2016-12-12 04:51] LABS: ALKALINE PHOSPHATASE 94 U/L (38-126); ALT/SGPT 47 U/L (21-72); BLOOD UREA NITROGEN 13 mg/dL (9-20); CALCIUM 8.3 mg/dl (8.6-10.4); GLUCOSE,RANDOM 117 mg/dL (75-110); WHITE BLOOD COUNT 1.6 K/uL (4.8-10.8)
[2016-12-12 07:30] LABS: INR 1.3
--- NOTE | 2016-12-12 07:41 | RAD ---
HISTORY: [place] COMPARISON: Single frontal portable chest 05/19/2016 FINDINGS: LUNGS: No active pulmonary disease. PLEURA: No significant pleural effusion identified, no pneumothorax apparent. CARDIOVASCULAR: Mild cardiomegaly is reiterated. No definite pulmonary vascular derangement. Limited exposure accentuates the vascular markings somewhat. Sternotomy wires are again noted. OSSEOUS STRUCTURES: Sternotomy wires again evident. VISUALIZED UPPER ABDOMEN: Normal. OTHER FINDINGS: None. IMPRESSION: Stable mild cardiomegaly without infiltrate pleural effusion or pneumothorax appreciable. No definite pulmonary vascular derangement.
[2016-12-12 08:30] LABS: ABG ALLEN TEST POS; DRAW SITE RR
[2016-12-12] MEDS ORDERED: Sodium Chloride 0.9% 1,000 ML IV ONE ×2 (08:57→10:25)
[2016-12-12] MEDS: Saccharomyces Boulardi 250 mg Cap PO SCH ×2 (10:21→17:26)
[2016-12-12 10:50] LABS: RETIC% 1.6 % (0.5-1.5)
[2016-12-12 12:12] LABS: FOLATE 10.2 ng/mL
[2016-12-12 12:51] LABS: NEUTROPHIL 63 % (50-75); TOTAL CELLS COUNTED 100
--- NOTE | 2016-12-12 14:20 | CP.PCM.CON ---
History of Present Illness - History of Present Illness History of Present Illness: Patient is a 46yo M with a PMHx of Endocarditis, HepB, HepC. Surgery was consulted for a central line placement. Patient has been in the hospital for heroin withdrawal on 12/04. This morning patient was found to be febrile at 103F and O2 sat of 86%, which led to an LOGISTICS ANALYTICS MANAGER. Patient was then transferred to telemetry. Patient was found to be persistently hypotensive despite IV fluid boluses. ROS: +fever, chills, diarrhea absent SOB, chest pain PMHx: Endocarditis, HepB, HepC, Depression, Seizures, aortic stenosis PSHx: Aortic valve replacement x2 (03/22/16, 04/28/16 - porcelain valve) Allergies: Haldol, [place] Social: denies tobacco, alcohol. +heroin, cocaine use Past Patient History - Infectious Disease Hx of Infectious Diseases: None - Tetanus Immunizations Tetanus Immunization: Unknown - Past Medical History & Family History Past Medical History?: Yes - Past Social History Smoking Status: Former Smoker - CARDIAC Hx Congestive Heart Failure: Yes - PULMONARY Hx Respiratory Disorders: No Hx Tuberculosis: No - NEUROLOGICAL Hx Seizures: Yes (Epileptic) - HEENT Hx HEENT Problems: No - RENAL Hx Chronic Kidney Disease: No - ENDOCRINE/METABOLIC Hx Endocrine Disorders: No - HEMATOLOGICAL/ONCOLOGICAL Hx Anemia: Yes Hx Human Immunodeficiency Virus (HIV): Yes - INTEGUMENTARY Hx Dermatological Problems: Yes Hx Cellulitis: Yes Other/Comment: Hx of abscesses to right arm and left side of neck - MUSCULOSKELETAL/RHEUMATOLOGICAL Hx Arthritis: No Hx Fractures: No Hx Osteoporosis: No Hx Rheumatoid Arthritis: No - GASTROINTESTINAL Hx Gastrointestinal Disorders: No - GENITOURINARY/GYNECOLOGICAL Hx Sexually Transmitted Disorders: No - PSYCHIATRIC Hx Substance Use: Yes - SURGICAL HISTORY Hx Coronary Artery Bypass Graft: (?) - ANESTHESIA Hx Anesthesia: Yes Hx Anesthesia Reactions: No Hx Malignant Hyperthermia: No Meds Allergies/Adverse Reactions: Allergies Allergy/AdvReac Type Severity Reaction Status Date / Time haloperidol [From Haldol] Allergy REDNESS Verified 09/16/16 00:44 turkey Allergy red Uncoded 09/16/16 00:44 blotches - Medications Medications: Current Medications Acetaminophen (Tylenol 325mg Tab) 650 mg PO Q6 PRN PRN Reason: Fever >100.4 F Last Admin: 12/12/16 04:48 Dose: 650 mg Benztropine Mesylate (Cogentin) 1 mg PO Q6 PRN PRN Reason: Other Last Admin: 12/07/16 10:00 Dose: 1 mg Clonidine HCl (Catapres) 0.1 mg PO Q8 PRN PRN Reason: COWS Score More or Equal to 5 Last Admin: 12/07/16 00:37 Dose: 0.1 mg Dicyclomine HCl (Bentyl) 20 mg PO Q8 PRN PRN Reason: ABDOMINAL PAIN Last Admin: 12/11/16 20:00 Dose: 20 mg Gabapentin (Neurontin) 300 mg PO BID [facility] Last Admin: 12/12/16 10:21 Dose: 300 mg Hydroxyzine HCl (Atarax) 50 mg PO Q6H PRN PRN Reason: Anxiety Last Admin: 12/11/16 22:10 Dose: 50 mg Piperacillin Sod/Tazobactam (Sod 3.375 gm/ Sodium Chloride) 100 mls @ 200 mls/ hr IVPB Q6H [facility] Last Admin: 12/12/16 10:55 Dose: 200 mls/hr Vancomycin HCl 1 gm/ Sodium (Chloride) 250 mls @ 166.7 mls/hr IVPB Q12H [facility] Last Admin: 12/12/16 05:15 Dose: 166.7 mls/hr Sodium Chloride (Sodium Chloride 0.9%) 1,000 mls @ 70 mls/hr IV .[id number] [facility] Last Admin: 12/12/16 11:06 Dose: 70 mls/hr Ibuprofen (Motrin Tab) 600 mg PO Q8H PRN PRN Reason: Pain, severe (8-10) Last Admin: 12/12/16 04:48 Dose: 600 mg Levetiracetam (Keppra) 500 mg PO BID [facility] Last Admin: 12/12/16 10:21 Dose: 500 mg Ondansetron HCl (Zofran Tab) 4 mg PO Q8 PRN PRN Reason: Nausea/Vomiting Last Admin: 12/11/16 20:00 Dose: 4 mg Saccharomyces Boulardii (Florastor) 250 mg PO BID [facility] Last Admin: 12/12/16 10:21 Dose: 250 mg Sertraline HCl (Zoloft) 50 mg PO DAILY [facility] Last Admin: 12/12/16 10:21 Dose: 50 mg Trazodone HCl (Desyrel) 100 mg PO HS [facility] Last Admin: 12/11/16 22:10 Dose: 100 mg Physical Exam - Constitutional Appears: Non-toxic, No Acute Distress - Head Exam Head Exam: ATRAUMATIC, NORMAL INSPECTION - Eye Exam Eye Exam: Normal appearance. absent: Scleral icterus - ENT Exam ENT Exam: Mucous Membranes Moist - Respiratory Exam Respiratory Exam: NORMAL BREATHING PATTERN. absent: Respiratory Distress - Cardiovascular Exam Cardiovascular Exam: REGULAR RHYTHM. absent: Bradycardia, Tachycardia, JVD - GI/Abdominal Exam GI & Abdominal Exam: Soft. absent: Guarding, Rebound, Rigid, Tenderness - Extremities Exam Extremities exam: Positive for: pedal edema, tenderness - Neurological Exam Neurological exam: Oriented x3 - Psychiatric Exam Psychiatric exam: Normal Affect, Normal Mood - Skin Skin Exam: Dry, Intact, Normal Color Results - Vital Signs Recent Vital Signs: Last Vital Signs Temp 99.7 F H 12/12/16 07:25 Pulse 73 12/12/16 13:54 Resp 18 12/12/16 07:25 BP 102/53 L 12/12/16 13:54 Pulse Ox 96 12/12/16 07:25 - Labs Result Diagrams: 12/12/16 04:36 12/12/16 04:36 Labs: Laboratory Results - last 24 hr 12/12/16 12/12/16 12/12/16 04:36 04:36 07:08 WBC 1.6 L* RBC 3.50 L Hgb 9.0 L Hct 27.1 L MCV 77.6 L MCH 25.8 L MCHC 33.3 RDW 15.9 H Plt Count 48 L D Manual Plt Count MPV 9.3 Neut % (Auto) 84.2 H Lymph % (Auto) 11.8 L Ellis % (Auto) 3.1 Eos % (Auto) 0.4 Baso % (Auto) 0.5 Neut # 1.4 L Lymph # 0.2 L Ellis # 0.1 Eos # 0.0 Baso # 0.0 Neutrophils % (Manual) Band Neutrophils % Lymphocytes % (Manual) Monocytes % (Manual) Platelet Estimate Hypochromasia (manual) Poikilocytosis (manual Anisocytosis (manual) Microcytosis (manual) Ovalocytes Retic Count PT 14.2 H INR 1.3 APTT 32 Puncture Site pCO2 pO2 HCO3 ABG pH ABG Total CO2 ABG O2 Saturation ABG Base Excess Mehran Test ABG Potassium A-a O2 Difference Respiratory Index Glucose Lactate Liter Flow FiO2 Sodium 137 Potassium 4.2 Chloride 102 Carbon Dioxide 22 Anion Gap 18 BUN 13 Creatinine 0.7 L Est GFR ( Amer) > 60 Est GFR (Non-Af Amer) > 60 Random Glucose 117 H Calcium 8.3 L Ferritin Total Bilirubin 0.9 AST 38 ALT 47 Alkaline Phosphatase 94 Total Protein 5.8 L Albumin 2.6 L Globulin 3.3 Albumin/Globulin Ratio 0.8 L Vitamin B12 Folate Arterial Blood Potassium 12/12/16 12/12/16 12/12/16 08:26 10:45 10:45 WBC RBC Hgb Hct MCV MCH MCHC RDW Plt Count Manual Plt Count 46 L MPV Neut % (Auto) Lymph % (Auto) Ellis % (Auto) Eos % (Auto) Baso % (Auto) Neut # Lymph # Ellis # Eos # Baso # Neutrophils % (Manual) 63 Band Neutrophils % 19 H* Lymphocytes % (Manual) 8 L Monocytes % (Manual) 10 Platelet Estimate Decreased L Hypochromasia (manual) Slight Poikilocytosis (manual Slight Anisocytosis (manual) Slight Microcytosis (manual) Slight Ovalocytes Slight Retic Count 1.6 H PT INR APTT Puncture Site Rr pCO2 32 L pO2 97 HCO3 25.2 ABG pH 7.47 H ABG Total CO2 24.3 ABG O2 Saturation 99.2 H ABG Base Excess 0.3 Mehran Test Pos ABG Potassium 3.3 L A-a O2 Difference 56.0 Respiratory Index 0.6 Glucose 106 Lactate 1.2 Liter Flow 2.0 FiO2 27.0 Sodium 133.0 Potassium Chloride 108.0 H Carbon Dioxide Anion Gap BUN Creatinine Est GFR ( Amer) Est GFR (Non-Af Amer) Random Glucose Calcium Ferritin Total Bilirubin AST ALT Alkaline Phosphatase Total Protein Albumin Globulin Albumin/Globulin Ratio Vitamin B12 Folate Arterial Blood Potassium 3.3 L 12/12/16 10:45 WBC RBC Hgb Hct MCV MCH MCHC RDW Plt Count Manual Plt Count MPV Neut % (Auto) Lymph % (Auto) Ellis % (Auto) Eos % (Auto) Baso % (Auto) Neut # Lymph # Ellis # Eos # Baso # Neutrophils % (Manual) Band Neutrophils % Lymphocytes % (Manual) Monocytes % (Manual) Platelet Estimate Hypochromasia (manual) Poikilocytosis (manual Anisocytosis (manual) Microcytosis (manual) Ovalocytes Retic Count PT INR APTT Puncture Site pCO2 pO2 HCO3 ABG pH ABG Total CO2 ABG O2 Saturation ABG Base Excess Mehran Test ABG Potassium A-a O2 Difference Respiratory Index Glucose Lactate Liter Flow FiO2 Sodium Potassium Chloride Carbon Dioxide Anion Gap BUN Creatinine Est GFR ( Amer) Est GFR (Non-Af Amer) Random Glucose Calcium Ferritin 38.7 Total Bilirubin AST ALT Alkaline Phosphatase Total Protein Albumin Globulin Albumin/Globulin Ratio Vitamin B12 685 Folate 10.2 Arterial Blood Potassium Assessment & Plan - Assessment and Plan (Free Text) Assessment: 1. 46yo M consulted for central line placement - Consent - place central line - f/u CXR Further recs discuss with Dr. Xavier Mena, PGY2
--- NOTE | 2016-12-12 14:33 | PCM.PROC ---
Procedures Attestation:: I certify that I have explained the specified Operation(s) or Procedure(s), risks, benefits and reasonable alternatives to the Patient and/or other person responsible. The opportunity was given to ask questions and all questions answered - Central Line Placement Internal Jugular Aseptic technique was employed throughout the procedure: Hand Hygiene done prior to procedure, Full sterile barriers (mask, hair cover, sterile gown, sterile gloves), Full body sterile drape, Chloraprep Antiseptic: 30 second prep for IJ or SC sites CVP Time Out Performed: Yes Central Line Prep: Chlorhexidine-Alcohol Combination Local Anesthesia Used: Lidocaine 1% Amount of Anesthesia Used (mls): 10 Ultrasound Used for Placement: Yes Central Line Lumen Inserted: triple Central Line Length: 20 cm Post Procedure: Sutured in Place, Good Blood Return, All Ports Aspirated, Flushed, Capped, Sterile Dressing Applied Secured by: Suture Post procedure dressing: Gauze Post Procedure X-Ray: Yes Patient Tolerated Procedure: Well, No Complications Immediate Complications: None
--- NOTE | 2016-12-12 16:12 | PCM.PYCHPN ---
Psychiatric Progress Note - Psychiatric Progress Note Patient seen today, length of contact: 15 minutes Patient Chief Complaint: "I'm feeling jose." Problems Identified/Issues Discussed: The pt is seen, chart reviewed, case discussed with staff. Today early in the morning pt reported shortness of breath. His temperature was 103F and O2 sat of 86%. Rapid response team was called and patient was then transferred to telemetry. Pt appears anxious and irritable. However he denies suicidal or homicidal ideation's. No SEs from medications, risks discussed. Pt is improving slowly and needs more time. After care discussed. Support given, CBT and MT used briefly. Medication Change: No Medical Record Reviewed: Yes Mental Status Examination - Cognitive Function Orientation: Person, Place, Situation, Time Memory: Intact Attention: WNL Concentration: Poor Association: WNL Fund of Knowledge: WNL - Mood Mood: Depressed (Less than before), Anxious - Affect Affect: Constricted, Other (Appropriate) - Speech Speech: Appropriate, Soft - Formal Thought Process Formal Thought Process: No Impairment - Suicidal Ideation Suicidal Ideation: No - Homicidal Ideation Homicidal Ideation: No Goal/Treatment Plan - Goal/Treatment Plan Need for Continued Stay: Remain at risks for inpatient hospitalization, Discharge may exacerbated symptoms, Severe functional impairment Progress Toward Problem(s) and Goals/Treatment Plan: Major depressive disorder recurrent severe with psychotic features Opiate use disorder severe Cocaine use disorder Patient education Supportive therapy Methadone taper for opiate withdrawal symptoms kappra for seizure We'll start his discharge medications Other when necessary medications Estimated Date of D/C: 12/11/16
--- NOTE | 2016-12-12 16:44 | CP.PCM.CON ---
History of Present Illness - History of Present Illness History of Present Illness: 46yo M with a PMHx of Endocarditis, HepB, HepC. ID consulted for sepsis / antibiotic manaagement Patient has been in the hospital for heroin withdrawal on 12/04. 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 Patient was then transferred to telemetry. Patient was found to be persistently hypotensive despite IV fluid boluses. ROS: +fever, chills, diarrhea absent SOB, chest pain PMHx: Endocarditis, HepB, HepC, Depression, Seizures, aortic stenosis PSHx: Aortic valve replacement x2 (03/22/16, 04/28/16 - porcelain valve) Allergies: Haldol, [place] Social: denies tobacco, alcohol. +heroin, cocaine use Review of Systems - Review of Systems All systems: reviewed and no additional remarkable complaints except - Constitutional Constitutional: As Per HPI - EENT Eyes: absent: As Per HPI, Blind Spots, Blurred Vision, Change in Vision, Decreased Night Vision, Diplopia, Discharge, Dry Eye, Exophthalmos, Floaters, Irritation, Itchy Eyes, Loss of Peripheral Vision, Pain, Photophobia, Requires Corrective Lenses, Sees Flashes, Spots in Vision, Tunnel Vision, Other Visual Disturbances, Loss of Vision, Other Ears: absent: As Per HPI, Decreased Hearing, Ear Discharge, Ear Pain, Tinnitus, Abnormal Hearing, Disequilibrium, Dizziness, Other Nose/Mouth/Throat: absent: As Per HPI, Epistaxis, Nasal Congestion, Nasal Discharge, Nasal Obstruction, Nasal Trauma, Nose Pain, Post Nasal Drip, Sinus Pain, Sinus Pressure, Bleeding Gums, Change in Voice, Dental Pain, Dry Mouth, Dysphagia, Halitosis, Hoarsness, Lip Swelling, Mouth Lesions, Mouth Pain, Odynophagia, Sore Throat, Throat Swelling, Tongue Swelling, Facial Pain, Neck Pain, Neck Mass, Other - Cardiovascular Cardiovascular: absent: As Per HPI, Acrocyanosis, Chest Pain, Chest Pain at Rest , Chest Pain with Activity, Claudication, Diaphoresis, Dyspnea, Dyspnea on Exertion, Edema, Irregular Heart Rhythm, Pain Radiating to Arm/Neck/Jaw, Leg Edema, Leg Ulcers, Lightheadedness, Orthopnea, Palpitations, Paroxysmal Nocturnal Dyspnea, Pedal Edema, Radiating Pain, Rapid Heart Rate, Slow Heart Rate, Syncope, Other - Respiratory Respiratory: absent: As Per HPI, Cough, Dyspnea, Hemoptysis, Dyspnea on Exertion , Wheezing, Snoring, Stridor, Pain on Inspiration, Chest Congestion, Excessive Mucous Production, Change in Mucous Color, Pain with Coughing, Other - Gastrointestinal Gastrointestinal: absent: As Per HPI, Abdominal Pain, Belching, Bloating, Change in Bowel Habits, Change in Stool Character, Coffee Ground Emesis, Constipation, Cramping, Diarrhea, Dyspepsia, Dysphagia, Early Satiety, Excessive Flatus, Fecal Incontinence, Heartburn, Hematemesis, Hematochezia, Loose Stools, Melena, Nausea, Odynophagia, Temesmus, Vomiting, Other - Genitourinary Genitourinary: absent: As Per HPI, Change in Urinary Stream, Difficulty Urinating, Dysuria, Flank Pain, Hematuria, Pyuria, Nocturia, Urinary Incontinence, Urinary Frequency, Urinary Hesitance, Urinary Urgency, Voiding Freq/Small Amts, Freq UTI, Hx Renal/Bladder Calculi, Hx /Renal Surgery, Bladder Distension, Other - Musculoskeletal Musculoskeletal: absent: As Per HPI, Abnormal Gait, Arthralgias, Atrophy, Back Pain, Deformity, Joint Swelling, Limited Range of Motion, Loss of Height, Muscle Cramps, Muscle Weakness, Myalgias, Neck Pain, Numbness, Radiating Pain into Limb, Stiffness, Tingling, Other - Neurological Neurological: absent: As Per HPI, Abnormal Gait, Abnormal Hearing, Abnormal Movements, Abnormal Speech, Behavioral Changes, Burning Sensations, Confusion, Convulsions, Disequilibrium, Dizziness, Numbness, Focal Weakness, Frequent Falls , Headaches, Lack of Coordination, Loss of Vision, Memory Loss, Paresthesias, Radicular Pain, Restless Legs, Sensory Deficit, Syncope, Tingling, Tremor, Vertigo, Weakness, Other Visual Disturbances, Other - Psychiatric Psychiatric: As Per HPI - Endocrine Endocrine: absent: As Per HPI, Change in Body Appearance, Change in Libido, Cold Intolorance, Deepening of Voice, Excessive Sweating, Fatigue, Flushing, Heat Intolorance, Increase in Ring/Shoe/Hat Size, Palpitations, Polydipsia, Polyphagia, Polyuria, Other - Hematologic/Lymphatic Hematologic: absent: As Per HPI, Easy Bleeding, Easy Bruising, Lymphadenopathy, Other Past Patient History - Infectious Disease Hx of Infectious Diseases: None - Tetanus Immunizations Tetanus Immunization: Unknown - Past Medical History & Family History Past Medical History?: Yes - Past Social History Smoking Status: Former Smoker - CARDIAC Hx Congestive Heart Failure: Yes - PULMONARY Hx Respiratory Disorders: No Hx Tuberculosis: No - NEUROLOGICAL Hx Seizures: Yes (Epileptic) - HEENT Hx HEENT Problems: No - RENAL Hx Chronic Kidney Disease: No - ENDOCRINE/METABOLIC Hx Endocrine Disorders: No - HEMATOLOGICAL/ONCOLOGICAL Hx Anemia: Yes Hx Human Immunodeficiency Virus (HIV): Yes - INTEGUMENTARY Hx Dermatological Problems: Yes Hx Cellulitis: Yes Other/Comment: Hx of abscesses to right arm and left side of neck - MUSCULOSKELETAL/RHEUMATOLOGICAL Hx Arthritis: No Hx Fractures: No Hx Osteoporosis: No Hx Rheumatoid Arthritis: No - GASTROINTESTINAL Hx Gastrointestinal Disorders: No - GENITOURINARY/GYNECOLOGICAL Hx Sexually Transmitted Disorders: No - PSYCHIATRIC Hx Substance Use: Yes - SURGICAL HISTORY Hx Coronary Artery Bypass Graft: (?) - ANESTHESIA Hx Anesthesia: Yes Hx Anesthesia Reactions: No Hx Malignant Hyperthermia: No Meds Allergies/Adverse Reactions: Allergies Allergy/AdvReac Type Severity Reaction Status Date / Time haloperidol [From Haldol] Allergy REDNESS Verified 09/16/16 00:44 turkey Allergy red Uncoded 09/16/16 00:44 blotches - Medications Medications: Current Medications Acetaminophen (Tylenol 325mg Tab) 650 mg PO Q6 PRN PRN Reason: Fever >100.4 F Last Admin: 12/12/16 04:48 Dose: 650 mg Benztropine Mesylate (Cogentin) 1 mg PO Q6 PRN PRN Reason: Other Last Admin: 12/07/16 10:00 Dose: 1 mg Clonidine HCl (Catapres) 0.1 mg PO Q8 PRN PRN Reason: COWS Score More or Equal to 5 Last Admin: 12/07/16 00:37 Dose: 0.1 mg Dicyclomine HCl (Bentyl) 20 mg PO Q8 PRN PRN Reason: ABDOMINAL PAIN Last Admin: 12/11/16 20:00 Dose: 20 mg Gabapentin (Neurontin) 300 mg PO BID [facility] Last Admin: 12/12/16 10:21 Dose: 300 mg Hydroxyzine HCl (Atarax) 50 mg PO Q6H PRN PRN Reason: Anxiety Last Admin: 12/12/16 15:54 Dose: 50 mg Piperacillin Sod/Tazobactam (Sod 3.375 gm/ Sodium Chloride) 100 mls @ 200 mls/ hr IVPB Q6H [facility] Last Admin: 12/12/16 15:44 Dose: 200 mls/hr Vancomycin HCl 1 gm/ Sodium (Chloride) 250 mls @ 166.7 mls/hr IVPB Q12H [facility] Last Admin: 12/12/16 05:15 Dose: 166.7 mls/hr Sodium Chloride (Sodium Chloride 0.9%) 1,000 mls @ 70 mls/hr IV .[id number] [facility] Last Admin: 12/12/16 11:06 Dose: 70 mls/hr Ibuprofen (Motrin Tab) 600 mg PO Q8H PRN PRN Reason: Pain, severe (8-10) Last Admin: 12/12/16 04:48 Dose: 600 mg Levetiracetam (Keppra) 500 mg PO BID [facility] Last Admin: 12/12/16 10:21 Dose: 500 mg Ondansetron HCl (Zofran Tab) 4 mg PO Q8 PRN PRN Reason: Nausea/Vomiting Last Admin: 12/11/16 20:00 Dose: 4 mg Saccharomyces Boulardii (Florastor) 250 mg PO BID [facility] Last Admin: 12/12/16 10:21 Dose: 250 mg Sertraline HCl (Zoloft) 50 mg PO DAILY [facility] Last Admin: 12/12/16 10:21 Dose: 50 mg Trazodone HCl (Desyrel) 100 mg PO HS [facility] Last Admin: 12/11/16 22:10 Dose: 100 mg Physical Exam - Constitutional Appears: Toxic, Chronically Ill - Head Exam Head Exam: NORMOCEPHALIC - Eye Exam Eye Exam: PERRL - ENT Exam ENT Exam: Mucous Membranes Dry, Normal External Ear Exam - Neck Exam Neck exam: Negative for: Lymphadenopathy - Respiratory Exam Respiratory Exam: Decreased Breath Sounds, Clear to Auscultation Bilateral - Cardiovascular Exam Cardiovascular Exam: REGULAR RHYTHM - GI/Abdominal Exam GI & Abdominal Exam: Distended, Soft. absent: Tenderness - Rectal Exam Rectal Exam: Deferred - Exam Exam: NORMAL INSPECTION - Extremities Exam Extremities exam: Negative for: pedal edema - Back Exam Back exam: absent: CVA tenderness (L), CVA tenderness (R), paraspinal tenderness - Neurological Exam Neurological exam: Alert, CN II-XII Intact, Oriented x3, Reflexes Normal - Psychiatric Exam Psychiatric exam: Normal Mood - Skin Skin Exam: Dry, Intact Results - Vital Signs Recent Vital Signs: Last Vital Signs Temp 99.7 F H 12/12/16 07:25 Pulse 69 12/12/16 16:08 Resp 18 12/12/16 07:25 BP 102/53 L 12/12/16 13:54 Pulse Ox 96 12/12/16 07:25 - Labs Result Diagrams: 12/12/16 04:36 12/12/16 04:36 Labs: Laboratory Results - last 24 hr 12/12/16 12/12/16 12/12/16 04:36 04:36 07:08 WBC 1.6 L* RBC 3.50 L Hgb 9.0 L Hct 27.1 L MCV 77.6 L MCH 25.8 L MCHC 33.3 RDW 15.9 H Plt Count 48 L D Manual Plt Count MPV 9.3 Neut % (Auto) 84.2 H Lymph % (Auto) 11.8 L [place] % (Auto) 3.1 Eos % (Auto) 0.4 Baso % (Auto) 0.5 Neut # 1.4 L Lymph # 0.2 L [place] # 0.1 Eos # 0.0 Baso # 0.0 Neutrophils % (Manual) Band Neutrophils % Lymphocytes % (Manual) Monocytes % (Manual) Platelet Estimate Hypochromasia (manual) Poikilocytosis (manual Anisocytosis (manual) Microcytosis (manual) Ovalocytes Retic Count PT 14.2 H INR 1.3 APTT 32 Puncture Site pCO2 pO2 HCO3 ABG pH ABG Total CO2 ABG O2 Saturation ABG Base Excess Mehran Test ABG Potassium A-a O2 Difference Respiratory Index Glucose Lactate Liter Flow FiO2 Sodium 137 Potassium 4.2 Chloride 102 Carbon Dioxide 22 Anion Gap 18 BUN 13 Creatinine 0.7 L Est GFR ( Amer) > 60 Est GFR (Non-Af Amer) > 60 Random Glucose 117 H Calcium 8.3 L Ferritin Total Bilirubin 0.9 AST 38 ALT 47 Alkaline Phosphatase 94 Total Protein 5.8 L Albumin 2.6 L Globulin 3.3 Albumin/Globulin Ratio 0.8 L Vitamin B12 Folate Arterial Blood Potassium 12/12/16 12/12/16 12/12/16 08:26 10:45 10:45 WBC RBC Hgb Hct MCV MCH MCHC RDW Plt Count Manual Plt Count 46 L MPV Neut % (Auto) Lymph % (Auto) [place] % (Auto) Eos % (Auto) Baso % (Auto) Neut # Lymph # [place] # Eos # Baso # Neutrophils % (Manual) 63 Band Neutrophils % 19 H* Lymphocytes % (Manual) 8 L Monocytes % (Manual) 10 Platelet Estimate Decreased L Hypochromasia (manual) Slight Poikilocytosis (manual Slight Anisocytosis (manual) Slight Microcytosis (manual) Slight Ovalocytes Slight Retic Count 1.6 H PT INR APTT Puncture Site Rr pCO2 32 L pO2 97 HCO3 25.2 ABG pH 7.47 H ABG Total CO2 24.3 ABG O2 Saturation 99.2 H ABG Base Excess 0.3 Mehran Test Pos ABG Potassium 3.3 L A-a O2 Difference 56.0 Respiratory Index 0.6 Glucose 106 Lactate 1.2 Liter Flow 2.0 FiO2 27.0 Sodium 133.0 Potassium Chloride 108.0 H Carbon Dioxide Anion Gap BUN Creatinine Est GFR ( Amer) Est GFR (Non-Af Amer) Random Glucose Calcium Ferritin Total Bilirubin AST ALT Alkaline Phosphatase Total Protein Albumin Globulin Albumin/Globulin Ratio Vitamin B12 Folate Arterial Blood Potassium 3.3 L 12/12/16 10:45 WBC RBC Hgb Hct MCV MCH MCHC RDW Plt Count Manual Plt Count MPV Neut % (Auto) Lymph % (Auto) [place] % (Auto) Eos % (Auto) Baso % (Auto) Neut # Lymph # [place] # Eos # Baso # Neutrophils % (Manual) Band Neutrophils % Lymphocytes % (Manual) Monocytes % (Manual) Platelet Estimate Hypochromasia (manual) Poikilocytosis (manual Anisocytosis (manual) Microcytosis (manual) Ovalocytes Retic Count PT INR APTT Puncture Site pCO2 pO2 HCO3 ABG pH ABG Total CO2 ABG O2 Saturation ABG Base Excess Mehran Test ABG Potassium A-a O2 Difference Respiratory Index Glucose Lactate Liter Flow FiO2 Sodium Potassium Chloride Carbon Dioxide Anion Gap BUN Creatinine Est GFR ( Amer) Est GFR (Non-Af Amer) Random Glucose Calcium Ferritin 38.7 Total Bilirubin AST ALT Alkaline Phosphatase Total Protein Albumin Globulin Albumin/Globulin Ratio Vitamin B12 685 Folate 10.2 Arterial Blood Potassium Assessment & Plan (1) Schizoaffective disorder Status: Acute (2) Alcohol abuse Status: Acute (3) Bipolar 1 disorder, depressed Status: Acute (4) Leucopenia Status: Acute (5) Pancytopenia Status: Acute (6) S/P aortic valve replacement Status: Acute - Assessment and Plan (Free Text) Assessment: cont iv antibiotics await cultures
--- NOTE | 2016-12-12 17:31 | RAD ---
HISTORY: S/P Central Line Placement COMPARISON: Portable chest 12/12/2016 FINDINGS: LUNGS: Heterogeneous infiltrate seen in the inferior right lung zone as well as at the mid to inferior left lung zone versus interval atelectasis. Small left pleural effusion is not excluded. None is seen the right. There is no pneumothorax. Cardiac size is stable. No definite pulmonary venous congestion. Trachea is midline. Right side central venous line has been placed terminating at the right atrium. PLEURA: As above CARDIOVASCULAR: As above OSSEOUS STRUCTURES: No significant abnormalities. VISUALIZED UPPER ABDOMEN: Normal. OTHER FINDINGS: None. IMPRESSION: Interval heterogeneous infiltrates seen at the inferior right and mid to inferior left lung zones with a likely small left pleural effusion evident. Right central venous venous lines has been place as discussed above. No pneumothorax bilaterally.
--- NOTE | 2016-12-12 20:30 | CP.PCM.CON ---
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 The patient is not sure if he has had blood problems in the past before. He denies abnormal bleeding and bruising. Review of his blood work shows leukopenia with mild neutropenia. His platelet count has been low since 2013. Review of an ultrasound of the abdomen shows heterogenous liver and splenomegaly. Past medical history: Hep B+C, endocarditis Past surgical history: Cardiac valve replacement Family history: Denies hematologic and oncologic problems Social history: Denies tobacco, alcohol. IVDA Allergies: Haloperidol Review of systems: All remaining review of systems including HEENT, cardiovascular, respiratory, gastrointestinal, genitourinary, musculoskeletal, dermatologic, neurologic, and psychiatric are negative unless mentioned in the HPI. Past Patient History - Infectious Disease Hx of Infectious Diseases: None - Tetanus Immunizations Tetanus Immunization: Unknown - Past Medical History & Family History Past Medical History?: Yes - Past Social History Smoking Status: Former Smoker - CARDIAC Hx Congestive Heart Failure: Yes - PULMONARY Hx Respiratory Disorders: No Hx Tuberculosis: No - NEUROLOGICAL Hx Seizures: Yes (Epileptic) - HEENT Hx HEENT Problems: No - RENAL Hx Chronic Kidney Disease: No - ENDOCRINE/METABOLIC Hx Endocrine Disorders: No - HEMATOLOGICAL/ONCOLOGICAL Hx Anemia: Yes Hx Human Immunodeficiency Virus (HIV): Yes - INTEGUMENTARY Hx Dermatological Problems: Yes Hx Cellulitis: Yes Other/Comment: Hx of abscesses to right arm and left side of neck - MUSCULOSKELETAL/RHEUMATOLOGICAL Hx Arthritis: No Hx Fractures: No Hx Osteoporosis: No Hx Rheumatoid Arthritis: No - GASTROINTESTINAL Hx Gastrointestinal Disorders: No - GENITOURINARY/GYNECOLOGICAL Hx Sexually Transmitted Disorders: No - PSYCHIATRIC Hx Substance Use: Yes - SURGICAL HISTORY Hx Coronary Artery Bypass Graft: (?) - ANESTHESIA Hx Anesthesia: Yes Hx Anesthesia Reactions: No Hx Malignant Hyperthermia: No Meds Allergies/Adverse Reactions: Allergies Allergy/AdvReac Type Severity Reaction Status Date / Time haloperidol [From Haldol] Allergy REDNESS Verified 09/16/16 00:44 turkey Allergy red Uncoded 09/16/16 00:44 blotches - Medications Medications: Current Medications Acetaminophen (Tylenol 325mg Tab) 650 mg PO Q6 PRN PRN Reason: Fever >100.4 F Last Admin: 12/12/16 04:48 Dose: 650 mg Benztropine Mesylate (Cogentin) 1 mg PO Q6 PRN PRN Reason: Other Last Admin: 12/07/16 10:00 Dose: 1 mg Clonidine HCl (Catapres) 0.1 mg PO Q8 PRN PRN Reason: COWS Score More or Equal to 5 Last Admin: 12/07/16 00:37 Dose: 0.1 mg Dicyclomine HCl (Bentyl) 20 mg PO Q8 PRN PRN Reason: ABDOMINAL PAIN Last Admin: 12/11/16 20:00 Dose: 20 mg Gabapentin (Neurontin) 300 mg PO BID [facility] Last Admin: 12/12/16 17:26 Dose: 300 mg Hydroxyzine HCl (Atarax) 50 mg PO Q6H PRN PRN Reason: Anxiety Last Admin: 12/12/16 15:54 Dose: 50 mg Piperacillin Sod/Tazobactam (Sod 3.375 gm/ Sodium Chloride) 100 mls @ 200 mls/ hr IVPB Q6H [facility] Last Admin: 12/12/16 15:44 Dose: 200 mls/hr Vancomycin HCl 1 gm/ Sodium (Chloride) 250 mls @ 166.7 mls/hr IVPB Q12H [facility] Last Admin: 12/12/16 17:25 Dose: 166.7 mls/hr Sodium Chloride (Sodium Chloride 0.9%) 1,000 mls @ 70 mls/hr IV .[id number] [facility] Last Admin: 12/12/16 18:54 Dose: Not Given Ibuprofen (Motrin Tab) 600 mg PO Q8H PRN PRN Reason: Pain, severe (8-10) Last Admin: 12/12/16 04:48 Dose: 600 mg Levetiracetam (Keppra) 500 mg PO BID [facility] Last Admin: 12/12/16 17:26 Dose: 500 mg Ondansetron HCl (Zofran Tab) 4 mg PO Q8 PRN PRN Reason: Nausea/Vomiting Last Admin: 12/11/16 20:00 Dose: 4 mg Saccharomyces Boulardii (Florastor) 250 mg PO BID [facility] Last Admin: 12/12/16 17:26 Dose: 250 mg Sertraline HCl (Zoloft) 50 mg PO DAILY [facility] Last Admin: 08/27/17 10:21 Dose: 50 mg Trazodone HCl (Desyrel) 100 mg PO HS [facility] Last Admin: 12/11/16 22:10 Dose: 100 mg Physical Exam - Head Exam Head Exam: ATRAUMATIC - Eye Exam Eye Exam: Normal appearance - ENT Exam ENT Exam: Mucous Membranes Dry - Respiratory Exam Respiratory Exam: NORMAL BREATHING PATTERN - Cardiovascular Exam Cardiovascular Exam: +S1, +S2 - GI/Abdominal Exam GI & Abdominal Exam: Normal Bowel Sounds Results - Vital Signs Recent Vital Signs: Last Vital Signs Temp 98.4 F 12/12/16 15:21 Pulse 69 12/12/16 16:08 Resp 20 12/12/16 15:21 BP 98/56 L 12/12/16 15:21 Pulse Ox 98 12/12/16 15:21 - Labs Result Diagrams: 12/12/16 04:36 12/12/16 04:36 Labs: Laboratory Results - last 24 hr 12/12/16 12/12/16 12/12/16 04:36 04:36 07:08 WBC 1.6 L* RBC 3.50 L Hgb 9.0 L Hct 27.1 L MCV 77.6 L MCH 25.8 L MCHC 33.3 RDW 15.9 H Plt Count 48 L D Manual Plt Count MPV 9.3 Neut % (Auto) 84.2 H Lymph % (Auto) 11.8 L [place] % (Auto) 3.1 Eos % (Auto) 0.4 Baso % (Auto) 0.5 Neut # 1.4 L Lymph # 0.2 L [place] # 0.1 Eos # 0.0 Baso # 0.0 Neutrophils % (Manual) Band Neutrophils % Lymphocytes % (Manual) Monocytes % (Manual) Platelet Estimate Hypochromasia (manual) Poikilocytosis (manual Anisocytosis (manual) Microcytosis (manual) Ovalocytes Retic Count PT 14.2 H INR 1.3 APTT 32 Puncture Site pCO2 pO2 HCO3 ABG pH ABG Total CO2 ABG O2 Saturation ABG Base Excess Mehran Test ABG Potassium A-a O2 Difference Respiratory Index Glucose Lactate Liter Flow FiO2 Sodium 137 Potassium 4.2 Chloride 102 Carbon Dioxide 22 Anion Gap 18 BUN 13 Creatinine 0.7 L Est GFR ( Amer) > 60 Est GFR (Non-Af Amer) > 60 Random Glucose 117 H Calcium 8.3 L Ferritin Total Bilirubin 0.9 AST 38 ALT 47 Alkaline Phosphatase 94 Total Protein 5.8 L Albumin 2.6 L Globulin 3.3 Albumin/Globulin Ratio 0.8 L Vitamin B12 Folate Arterial Blood Potassium Stool Occult Blood 12/12/16 12/12/16 12/12/16 08:26 10:45 10:45 WBC RBC Hgb Hct MCV MCH MCHC RDW Plt Count Manual Plt Count 46 L MPV Neut % (Auto) Lymph % (Auto) [place] % (Auto) Eos % (Auto) Baso % (Auto) Neut # Lymph # [place] # Eos # Baso # Neutrophils % (Manual) 63 Band Neutrophils % 19 H* Lymphocytes % (Manual) 8 L Monocytes % (Manual) 10 Platelet Estimate Decreased L Hypochromasia (manual) Slight Poikilocytosis (manual Slight Anisocytosis (manual) Slight Microcytosis (manual) Slight Ovalocytes Slight Retic Count 1.6 H PT INR APTT Puncture Site Rr pCO2 32 L pO2 97 HCO3 25.2 ABG pH 7.47 H ABG Total CO2 24.3 ABG O2 Saturation 99.2 H ABG Base Excess 0.3 Mehran Test Pos ABG Potassium 3.3 L A-a O2 Difference 56.0 Respiratory Index 0.6 Glucose 106 Lactate 1.2 Liter Flow 2.0 FiO2 27.0 Sodium 133.0 Potassium Chloride 108.0 H Carbon Dioxide Anion Gap BUN Creatinine Est GFR ( Amer) Est GFR (Non-Af Amer) Random Glucose Calcium Ferritin Total Bilirubin AST ALT Alkaline Phosphatase Total Protein Albumin Globulin Albumin/Globulin Ratio Vitamin B12 Folate Arterial Blood Potassium 3.3 L Stool Occult Blood 12/12/16 12/12/16 10:45 19:23 WBC RBC Hgb Hct MCV MCH MCHC RDW Plt Count Manual Plt Count MPV Neut % (Auto) Lymph % (Auto) [place] % (Auto) Eos % (Auto) Baso % (Auto) Neut # Lymph # [place] # Eos # Baso # Neutrophils % (Manual) Band Neutrophils % Lymphocytes % (Manual) Monocytes % (Manual) Platelet Estimate Hypochromasia (manual) Poikilocytosis (manual Anisocytosis (manual) Microcytosis (manual) Ovalocytes Retic Count PT INR APTT Puncture Site pCO2 pO2 HCO3 ABG pH ABG Total CO2 ABG O2 Saturation ABG Base Excess Mehran Test ABG Potassium A-a O2 Difference Respiratory Index Glucose Lactate Liter Flow FiO2 Sodium Potassium Chloride Carbon Dioxide Anion Gap BUN Creatinine Est GFR ( Amer) Est GFR (Non-Af Amer) Random Glucose Calcium Ferritin 38.7 Total Bilirubin AST ALT Alkaline Phosphatase Total Protein Albumin Globulin Albumin/Globulin Ratio Vitamin B12 685 Folate 10.2 Arterial Blood Potassium Stool Occult Blood Negative Assessment & Plan (1) Pancytopenia Assessment and Plan: multifactorial HIV, sepsis, liver diseases with splenic sequestration borderline iron stores; recommend against IV iron supplementation until infection resolves transfusion support PRN will review peripheral smear bone marrow evaluation if counts do not return to baseline Thank you for this interesting consult. Status: Acute
[2016-12-12 20:34] LABS: C DIFF TOXIN A B NEGATIVE (NEGATIVE)
[2016-12-12 21:58] LABS: FECAL LEUKOCYTES NEGATIVE (NEGATIVE)
[2016-12-13] MEDS: Piperacillin/Tazobact 3.375 GM in Sodium Chloride 100 ML IVPB SCH ×4 (04:00→21:25)
[2016-12-13] MEDS: Sodium Chloride 0.9% 1,000 ML IV SCH ×2 (04:05→09:10)
[2016-12-13 07:11] LABS: ALB/GLOB RATIO 0.8 (1.0-2.1); ALKALINE PHOSPHATASE 56 U/L (38-126); ALT/SGPT 41 U/L (21-72); AST/SGOT 31 U/L (17-59); BILIRUBIN,TOTAL 0.4 mg/dL (0.2-1.3); BLOOD UREA NITROGEN 12 mg/dL (9-20); CALCIUM 7.5 mg/dl (8.6-10.4); CARBON DIOXIDE 23 mmol/L (22-30); CHLORIDE 112 mmol/L (98-107); GFR AFRICAN-AMERICAN > 60; GLUCOSE,RANDOM 99 mg/dL (75-110); POTASSIUM 3.6 mmol/L (3.6-5.2); SODIUM 141 mmol/L (132-148); TOTAL PROTEIN 4.6 g/dL (6.3-8.3)
[2016-12-13 07:20] LABS: BASO % 0.3 % (0.0-2.0); EOS % 0.9 % (0.0-4.0); HEMATOCRIT 24.4 % (35.0-51.0); LYMPH # 0.5 K/uL (1.0-4.3); LYMPH % 16.2 % (20.0-40.0); MEAN CELL VOLUME 78.1 fL (80.0-94.0); MEAN CORPUSCULAR HEMOGLOBIN 25.1 pg (27.0-31.0); MEAN CORPUSCULAR HGB CONC 32.2 g/dL (33.0-37.0); MEAN PLATELET VOLUME 9.1 fL (7.2-11.7); MONO # 0.3 K/uL (0.0-0.8); RED CELL DISTRIBUTION WIDTH 15.6 % (11.5-14.5)
[2016-12-13 07:36] LABS: WHITE BLOOD COUNT 3.4 K/uL (4.8-10.8)
--- NOTE | 2016-12-13 09:31 | RAD ---
HISTORY: central line, reposition COMPARISON: Comparison chest 12/12/2016. FINDINGS: LUNGS: Right IJ central venous line with tip in the SVC. Right lower lobe opacity slightly improved. Mild left basilar atelectasis and suspected small effusion. Central pulmonary vasculature appears less congested. . . PLEURA: No pneumothorax apparent. CARDIOVASCULAR: . Sternotomy wires and valve replacement again noted. Heart remains mildly enlarged. OSSEOUS STRUCTURES: No significant abnormalities. VISUALIZED UPPER ABDOMEN: Normal. OTHER FINDINGS: None. IMPRESSION: Improved right lower lobe atelectasis and or infiltrate Suspect mild bibasilar atelectasis with small effusion.
[2016-12-13] MEDS: Saccharomyces Boulardi 250 mg Cap PO SCH ×2 (09:34→18:09)
--- NOTE | 2016-12-13 14:40 | RAD ---
PROCEDURE: Radiographs of the Left Shoulder HISTORY: Hx of fall COMPARISON: Chest x-ray performed 12/13/16 FINDINGS: Partially imaged right IJ approach central venous catheter extends to the expected location of the cavoatrial junction. Median sternotomy wires. Partially imaged cardiomegaly. BONES: No acute displaced fracture. The distal clavicle and underlying ribs appear intact. JOINTS: No acute dislocation. SOFT TISSUES: Soft tissues appear unremarkable. No evidence of radiopaque foreign body. IMPRESSION: No acute displaced fracture or dislocation evident. If symptoms persist or if there is continued clinical concern, x-ray follow-up in 7-10 days should be considered.
--- NOTE | 2016-12-13 15:38 | CP.PCM.PN ---
Subjective - Date & Time of Evaluation Date of Evaluation: 12/13/16 Time of Evaluation: 07:00 - Subjective Subjective: Patient seen and examined. No complaints. Right IJ incision site is c/d/i. No acute events over night. Objective - Vital Signs/Intake and Output Vital Signs (last 24 hours): Temp Pulse Resp BP Pulse Ox 98.5 F 65 20 106/65 98 12/13/16 09:31 12/13/16 09:31 12/13/16 09:31 12/13/16 09:31 12/13/16 09:31 Intake and Output: 12/13/16 12/13/16 06:59 18:59 Output Total 300 Balance -300 - Medications Medications: Current Medications Acetaminophen (Tylenol 325mg Tab) 650 mg PO Q6 PRN PRN Reason: Fever >100.4 F Last Admin: 12/12/16 04:48 Dose: 650 mg Benztropine Mesylate (Cogentin) 1 mg PO Q6 PRN PRN Reason: Other Last Admin: 12/07/16 10:00 Dose: 1 mg Clonidine HCl (Catapres) 0.1 mg PO Q8 PRN PRN Reason: COWS Score More or Equal to 5 Last Admin: 12/07/16 00:37 Dose: 0.1 mg Dicyclomine HCl (Bentyl) 20 mg PO Q8 PRN PRN Reason: ABDOMINAL PAIN Last Admin: 12/11/16 20:00 Dose: 20 mg Gabapentin (Neurontin) 300 mg PO BID [facility] Last Admin: 12/13/16 09:34 Dose: 300 mg Hydroxyzine HCl (Atarax) 50 mg PO Q6H PRN PRN Reason: Anxiety Last Admin: 12/13/16 15:25 Dose: 50 mg Piperacillin Sod/Tazobactam (Sod 3.375 gm/ Sodium Chloride) 100 mls @ 200 mls/ hr IVPB Q6H [facility] Last Admin: 12/13/16 15:28 Dose: 200 mls/hr Vancomycin HCl 1 gm/ Sodium (Chloride) 250 mls @ 166.7 mls/hr IVPB Q12H [facility] Last Admin: 12/13/16 04:00 Dose: 166.7 mls/hr Sodium Chloride (Sodium Chloride 0.9%) 1,000 mls @ 70 mls/hr IV .[id number] [facility] Last Admin: 12/13/16 09:10 Dose: Not Given Ibuprofen (Motrin Tab) 600 mg PO Q8H PRN PRN Reason: Pain, severe (8-10) Last Admin: 12/12/16 21:39 Dose: 600 mg Levetiracetam (Keppra) 500 mg PO BID [facility] Last Admin: 12/13/16 09:34 Dose: 500 mg Ondansetron HCl (Zofran Tab) 4 mg PO Q8 PRN PRN Reason: Nausea/Vomiting Last Admin: 12/11/16 20:00 Dose: 4 mg Saccharomyces Boulardii (Florastor) 250 mg PO BID [facility] Last Admin: 12/13/16 09:34 Dose: 250 mg Sertraline HCl (Zoloft) 50 mg PO DAILY [facility] Last Admin: 12/13/16 09:34 Dose: 50 mg Trazodone HCl (Desyrel) 100 mg PO HS [facility] Last Admin: 12/12/16 21:36 Dose: 100 mg - Labs Labs: 12/13/16 06:45 12/13/16 06:45 PT 14.2 SECONDS (9.7-12.2) H 12/12/16 07:08 INR 1.3 12/12/16 07:08 APTT 32 SECONDS (21-34) 12/12/16 07:08 - Constitutional Appears: No Acute Distress - Head Exam Head Exam: NORMOCEPHALIC - Eye Exam Eye Exam: Normal appearance - ENT Exam ENT Exam: Mucous Membranes Moist - Respiratory Exam Respiratory Exam: NORMAL BREATHING PATTERN - Cardiovascular Exam Cardiovascular Exam: +S1, +S2 - Neurological Exam Neurological Exam: Alert, Awake, Oriented x3 - Psychiatric Exam Psychiatric exam: Normal Mood - Skin Skin Exam: Normal Color, Warm Assessment and Plan - Assessment and Plan (Free Text) Assessment: 46M s/p R IJ insertion -R IJ site is c/d/i -OK to use line -No further surgical intervention necessary -Please re-consult as needed -Further recs per Dr. Xavier Rodriguez PGY-2
--- NOTE | 2016-12-13 19:40 | CP.PCM.PN ---
<Eliana Stewart - Last Filed: 12/13/16 19:48> Subjective - Date & Time of Evaluation Date of Evaluation: 12/13/16 Time of Evaluation: 07:25 - Subjective Subjective: Pt S&E at bedside. Pt resting comfortably in bed. Pt complaining of left shoulder weakness and pain. Pt says this is due to a fall he had months ago. Patient did not f/u for this. Pt still having diarrhea x2 days and cough productive of white sputum. Pt denies CP/SOB/AP/N/V/F/C. Objective - Vital Signs/Intake and Output Vital Signs (last 24 hours): Temp Pulse Resp BP Pulse Ox 99.7 F H 78 20 126/74 95 12/13/16 18:08 12/13/16 15:29 12/13/16 15:29 12/13/16 15:29 12/13/16 15:29 Intake and Output: 12/13/16 12/14/16 18:59 06:59 Intake Total 930 Output Total 600 Balance 330 - Medications Medications: Current Medications Acetaminophen (Tylenol 325mg Tab) 650 mg PO Q6 PRN PRN Reason: Fever >100.4 F Last Admin: 12/12/16 04:48 Dose: 650 mg Benztropine Mesylate (Cogentin) 1 mg PO Q6 PRN PRN Reason: Other Last Admin: 12/07/16 10:00 Dose: 1 mg Clonidine HCl (Catapres) 0.1 mg PO Q8 PRN PRN Reason: COWS Score More or Equal to 5 Last Admin: 12/07/16 00:37 Dose: 0.1 mg Dicyclomine HCl (Bentyl) 20 mg PO Q8 PRN PRN Reason: ABDOMINAL PAIN Last Admin: 12/13/16 18:15 Dose: 20 mg Gabapentin (Neurontin) 300 mg PO BID [facility] Last Admin: 12/13/16 18:09 Dose: 300 mg Hydroxyzine HCl (Atarax) 50 mg PO Q6H PRN PRN Reason: Anxiety Last Admin: 12/13/16 15:25 Dose: 50 mg Piperacillin Sod/Tazobactam (Sod 3.375 gm/ Sodium Chloride) 100 mls @ 200 mls/ hr IVPB Q6H [facility] Last Admin: 12/13/16 15:28 Dose: 200 mls/hr Vancomycin HCl 1 gm/ Sodium (Chloride) 250 mls @ 166.7 mls/hr IVPB Q12H [facility] Last Admin: 12/13/16 17:15 Dose: 166.7 mls/hr Sodium Chloride (Sodium Chloride 0.9%) 1,000 mls @ 70 mls/hr IV .[id number] [facility] Last Admin: 12/13/16 09:10 Dose: Not Given Ibuprofen (Motrin Tab) 600 mg PO Q8H PRN PRN Reason: Pain, severe (8-10) Last Admin: 12/12/16 21:39 Dose: 600 mg Levetiracetam (Keppra) 500 mg PO BID [facility] Last Admin: 12/13/16 18:09 Dose: 500 mg Ondansetron HCl (Zofran Tab) 4 mg PO Q8 PRN PRN Reason: Nausea/Vomiting Last Admin: 12/11/16 20:00 Dose: 4 mg Saccharomyces Boulardii (Florastor) 250 mg PO BID [facility] Last Admin: 12/13/16 18:09 Dose: 250 mg Sertraline HCl (Zoloft) 50 mg PO DAILY [facility] Last Admin: 12/13/16 09:34 Dose: 50 mg Trazodone HCl (Desyrel) 100 mg PO HS [facility] Last Admin: 12/12/16 21:36 Dose: 100 mg - Labs Labs: 12/13/16 06:45 12/13/16 06:45 PT 14.2 SECONDS (9.7-12.2) H 12/12/16 07:08 INR 1.3 12/12/16 07:08 APTT 32 SECONDS (21-34) 12/12/16 07:08 - Constitutional Appears: Non-toxic, No Acute Distress - Head Exam Head Exam: NORMAL INSPECTION - Eye Exam Eye Exam: EOMI - ENT Exam ENT Exam: Mucous Membranes Moist - Neck Exam Additional comments: Functioning triple lumen catheter in place on Right without erythema or swelling. IV line on left neck nonfunctioning. - Respiratory Exam Respiratory Exam: Clear to Ausculation Bilateral, NORMAL BREATHING PATTERN. absent: Accessory Muscle Use, Wheezes, Respiratory Distress - Cardiovascular Exam Cardiovascular Exam: REGULAR RHYTHM, +S1, +S2. absent: Bradycardia, Tachycardia - GI/Abdominal Exam GI & Abdominal Exam: Soft. absent: Tenderness - Extremities Exam Additional comments: No track bergeron noted on arms or in webbing of fingers or toes. - Neurological Exam Neurological Exam: Alert, Awake, Oriented x3 - Psychiatric Exam Psychiatric exam: Normal Affect, Normal Mood - Skin Skin Exam: Dry, Intact, Warm Assessment and Plan - Assessment and Plan (Free Text) Assessment: Fever * CXR 12/12 - heterogenous infiltrate at inferior Right and Mid/inferior left lung zones vs atelectasis with likely small left pleural effusion and Right central venous line terminating at the right atrium; Repeat CXR 12/13 shows right IJ central venous line with tip in the SVC after adjustment and right lower lobe opacity with improvement * F/u Echo 12/12 * Blood cultures 12/12 - Gram positive cocci in chains * Urine culture 12/12 - no growth * Cont Vancomycin 1 gm Q12H and Zosyn 3.375 gm Q6H for now - ID recs ([facility]) * NS 70 cc/hr * Tylenol 650 mg PO Q6 prn fever. Due to history of hepatitis, consider switching to a different agent at some point. Left shoulder pain/weakness * 2/2 Hx of fall * Left shoulder XR (12/13) - no acute dislocation or fracture, soft tissues unremarkable Diarrhea * Stool Culture/O&P (12/12) - negative for O&P, F/U pending culture results * Stool negative for leukocytes and occult blood * Serum C. diff antigen and toxin negative History of Seizures * Continue Keppra 500 mg PO BID * Continue Gabapentin 300 mg PO BID History of Depression * Continue Zoloft 50 mg PO daily History of Hepatitis B & C * Monitor LFTs. Currently WNL Pancytopenia * Patient has known hypersplenism and pancytopenia dating back to prior admission * On old admission growth factors like Neupogen (Filgrastim) were recommended for low WBC * Heme/Onc consulted ([place]) - recs against IV iron supplementation at this time until infection resolves, transfusion support prn, plans to review peripheral smear, BM evaluation if counts do not return to baseline * HIV 1&2 Ab screen negative * Stool negative for occult blood Systolic ejection murmur * Likely 2/2 aortic valve replacement x2 * F/U echo 12/12 for Daily criteria for Endocarditis: * Major criteria: (1.) positive blood culture for gram positive cocci in chains concerning for Strep from 2 separate blood cultures (2.) echo pending * Minor Criteria: (1) Hx of IV drug use/porcine valve * Consider cardiology consult Prophylactic Measure * Heparin and GI ppx held due to platelets * SCDs for now Eliana Stewart DO PGY1 <Chichi Dc V - Last Filed: 12/13/16 22:12> Objective - Vital Signs/Intake and Output Vital Signs (last 24 hours): Temp Pulse Resp BP Pulse Ox 99.7 F H 78 20 126/74 95 12/13/16 18:08 12/13/16 15:29 12/13/16 15:29 12/13/16 15:29 12/13/16 15:29 Intake and Output: 12/13/16 12/14/16 18:59 06:59 Intake Total 930 Output Total 600 Balance 330 - Medications Medications: Current Medications Acetaminophen (Tylenol 325mg Tab) 650 mg PO Q6 PRN PRN Reason: Fever >100.4 F Last Admin: 12/12/16 04:48 Dose: 650 mg Benztropine Mesylate (Cogentin) 1 mg PO Q6 PRN PRN Reason: Other Last Admin: 12/07/16 10:00 Dose: 1 mg Clonidine HCl (Catapres) 0.1 mg PO Q8 PRN PRN Reason: COWS Score More or Equal to 5 Last Admin: 12/07/16 00:37 Dose: 0.1 mg Dicyclomine HCl (Bentyl) 20 mg PO Q8 PRN PRN Reason: ABDOMINAL PAIN Last Admin: 12/13/16 18:15 Dose: 20 mg Gabapentin (Neurontin) 300 mg PO BID [facility] Last Admin: 12/13/16 18:09 Dose: 300 mg Hydroxyzine HCl (Atarax) 50 mg PO Q6H PRN PRN Reason: Anxiety Last Admin: 12/13/16 15:25 Dose: 50 mg Piperacillin Sod/Tazobactam (Sod 3.375 gm/ Sodium Chloride) 100 mls @ 200 mls/ hr IVPB Q6H [facility] Last Admin: 12/13/16 21:25 Dose: 200 mls/hr Vancomycin HCl 1 gm/ Sodium (Chloride) 250 mls @ 166.7 mls/hr IVPB Q12H [facility] Last Admin: 12/13/16 17:15 Dose: 166.7 mls/hr Sodium Chloride (Sodium Chloride 0.9%) 1,000 mls @ 70 mls/hr IV .[id number] [facility] Last Admin: 12/13/16 09:10 Dose: Not Given Ibuprofen (Motrin Tab) 600 mg PO Q8H PRN PRN Reason: Pain, severe (8-10) Last Admin: 12/12/16 21:39 Dose: 600 mg Levetiracetam (Keppra) 500 mg PO BID [facility] Last Admin: 12/13/16 18:09 Dose: 500 mg Ondansetron HCl (Zofran Tab) 4 mg PO Q8 PRN PRN Reason: Nausea/Vomiting Last Admin: 12/11/16 20:00 Dose: 4 mg Saccharomyces Boulardii (Florastor) 250 mg PO BID [facility] Last Admin: 12/13/16 18:09 Dose: 250 mg Sertraline HCl (Zoloft) 50 mg PO DAILY [facility] Last Admin: 12/13/16 09:34 Dose: 50 mg Trazodone HCl (Desyrel) 100 mg PO HS [facility] Last Admin: 12/13/16 21:26 Dose: 100 mg - Labs Labs: 12/13/16 06:45 12/13/16 06:45 PT 14.2 SECONDS (9.7-12.2) H 12/12/16 07:08 INR 1.3 12/12/16 07:08 APTT 32 SECONDS (21-34) 12/12/16 07:08 Attending/Attestation - Attestation I have personally seen and examined this patient.: Yes I have fully participated in the care of the patient.: Yes I have reviewed all pertinent clinical information, including history, physical exam and plan: Yes Notes (Text): Patient seen, examined, and case discussed with day-time resident. Patient known to me from prior hospitalization. Prior hx of endocarditis requiring porcine aortic valve replacement, hx of heroin and cocaine use, hx of hepatitis B and C use, hx of IVDA. Patient reports he came in because of fever and chills. Patient admits he injects in the neck. Examined body, no overt cellulitis; skin tracking, skin popping, over webbing of the feet, crease in elbows. Patient has IJ placed over right side of neck, advised he cannot leave the hospital with that given his IV drug use. Patient reports he understands. Patient to complete echocardiogram to monitor for vegetations in light of current IV drug use, fever, +blood cultures, and prior hx of endocarditis. Will consult cardiology pending results of echocardiogram. Assessment/Plan 1) Sepsis * Criteria: WBC<4; Temp: 104 F; positive blood cultures; Lactate: 1.2 on admission * Infectious Disease (Dr. Trevino) on board * Tmax: 103.5F on 12/12/16; Low grade fevers today * Completed echocardiogram today; pending official report * Blood cultures (12/12/16): gram positive cocci X2 awaiting speciation * Urine culture (12/12/16): no growth * Vancomycin 1 gm Q12H (active since ) * Zosyn 3.375 gm Q6H (active since 12/12/16) * NS 70 cc/hr * Tylenol 650 mg PO Q6 prn fever. Monitor liver function tests in light of hepatitis hx * Concern for possible endocarditis 2) History of porcine aortic valve replacement secondary to prior history of endocarditis; healed surgical scar on exam; in-spite of counselling, patient continues to do IVDA drug use and was instructed he is at risk of endocarditis and sequela if IVDA drug use persists 3) History of Seizures * Continue Keppra 500 mg PO BID * Continue Gabapentin 300 mg PO BID 4) History of Depression * Continue Zoloft 50 mg PO daily 5) History of Hepatitis B & C * Monitor LFTs. Currently WNL 6) Pancytopenia * Heme-Onc (Dr. 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 On old admission growth factors like Neupogen (Filgrastim) were recommended for low WBC. * Monitor H/H and platelets 7) Prophylactic Measure * Heparin and GI ppx held due to platelets * SCDs for now
[2016-12-14] MEDS: Piperacillin/Tazobact 3.375 GM in Sodium Chloride 100 ML IVPB SCH ×4 (03:34→22:02)
[2016-12-14] MEDS: Saccharomyces Boulardi 250 mg Cap PO SCH ×2 (10:35→18:35)
[2016-12-14 12:18] LABS: BASO % 0.8 % (0.0-2.0); EOS % 0.3 % (0.0-4.0); HEMATOCRIT 27.4 % (35.0-51.0); LYMPH # 0.5 K/uL (1.0-4.3); LYMPH % 11.1 % (20.0-40.0); MEAN CELL VOLUME 76.4 fL (80.0-94.0); MEAN CORPUSCULAR HGB CONC 32.8 g/dL (33.0-37.0); MEAN PLATELET VOLUME 8.9 fL (7.2-11.7); MONO # 0.2 K/uL (0.0-0.8); MONO % 5.4 % (0.0-10.0); WHITE BLOOD COUNT 4.5 K/uL (4.8-10.8)
[2016-12-14 12:32] LABS: CHLORIDE 106 mmol/L (98-107); SODIUM 139 mmol/L (132-148)
[2016-12-14 12:33] LABS: POTASSIUM 3.6 mmol/L (3.6-5.2)
[2016-12-14 12:34] LABS: BILIRUBIN,TOTAL 0.6 mg/dL (0.2-1.3); CARBON DIOXIDE 24 mmol/L (22-30); GFR AFRICAN-AMERICAN > 60
[2016-12-14 12:35] LABS: ALB/GLOB RATIO 0.7 (1.0-2.1); ALKALINE PHOSPHATASE 70 U/L (38-126); ALT/SGPT 37 U/L (21-72); AST/SGOT 25 U/L (17-59); BLOOD UREA NITROGEN 10 mg/dL (9-20); CALCIUM 8.2 mg/dl (8.6-10.4); GLUCOSE,RANDOM 100 mg/dL (75-110); MAGNESIUM 1.6 mg/dL (1.6-2.3); PHOSPHOROUS 3.6 mg/dL (2.5-4.5); TOTAL PROTEIN 5.7 g/dL (6.3-8.3)
--- NOTE | 2016-12-14 19:06 | CARD ---
APPROVED REPORT EXAM: Two-dimensional and M-mode echocardiogram with Doppler and color Doppler. Other Information Quality : GoodRhythm : NSR INDICATION Chest Pain Endocarditis; Schizo-affective disorder Surgery/Intervention Status/Post Aortic Valve Replacement: Bioprosthetic Date: 11/2015 2D DIMENSIONS IVSd1.4 (0.7-1.1cm)Aortic Root (2D)3.0 (2.0-3.7cm) LVDd4.8 (3.9-5.9cm)LVOT Diameter2.2 (1.8-2.4cm) PWd1.4 (0.7-1.1cm)LVDs3.1 (2.5-4.0cm) FS (%) 35.8 %LVEF (%)65.2 (>50%) M-Mode DIMENSIONS Left Atrium (MM)4.18 (2.5-4.0cm)Aortic Root3.57 (2.2-3.7cm) Aortic Cusp Exc.1.62 (1.5-2.0cm) Aortic Valve AoV Peak Ndomghwa296.6cm/sAoV BXF859.6cmAO Peak GR.90mmHg LVOT Peak Iwscgpeb800.0cm/sLVOT VTI34.16cmAO Mean GR.63mmHg VIN (VMAX)1.45pa2DZD (VTI)1.22cm2 Mitral Valve MV E Ynqatets38.8cm/sMV A Mzzpcwmq087.4cm/sE/A ratio0.8 TDI E/Lateral E'0.0E/Medial E'0.0 Tricuspid Valve TR Peak Ojxfacqq117dl/sTR Peak Gr.91wcBcYUOR61seWe LEFT VENTRICLE The left ventricle is normal size. There is moderate concentric left ventricular hypertrophy. Left ventricle systolic function is normal. The Ejection Fraction is 60-65%. There is normal LV segmental wall motion. Transmitral Doppler flow pattern is Grade I-abnormal relaxation pattern. No left ventricle thrombus noted on this study. There is no ventricular septal defect visualized. RIGHT VENTRICLE The right ventricle is normal size. The right ventricular systolic function is normal. ATRIA The left atrium size is normal. The right atrium size is normal. The interatrial septum is intact with no evidence for an atrial septal defect. AORTIC VALVE Aortic valve Bioprosthatic. There is mobile density seen with hiigh velocities across Aortic valve highly suspecious for Aortic valve Endocarditis. Recommend CASPER There is mild aortic regurgitation. MITRAL VALVE The mitral valve is normal in structure. There is no mitral valve stenosis. Mitral regurgitation is mild. TRICUSPID VALVE There is mild tricuspid regurgitation. There is no tricuspid valve stenosis. PULMONIC VALVE The pulmonary valve is normal in structure. GREAT VESSELS The aortic root is normal in size. <Conclusion> Left ventricle systolic function is normal. The Ejection Fraction is 60-65%. Transmitral Doppler flow pattern is Grade I-abnormal relaxation pattern. The right ventricular systolic function is normal. Aortic valve Bioprosthatic. There is mobile density seen with hiigh velocities across Aortic valve highly suspecious for Aortic valve Endocarditis. Recommend CASPER
--- NOTE | 2016-12-14 20:09 | CP.PCM.PN ---
<Eliana Stewart - Last Filed: 12/14/16 20:06> Subjective - Date & Time of Evaluation Date of Evaluation: 12/14/16 Time of Evaluation: 07:40 - Subjective Subjective: Pt S&E at bedside. Pt resting comfortably in bed. Pt c/o insomnia, low back pain , and left shoulder weakness and pain. Shoulder xray was ordered yesterday and unremarkable. Pt says this is due to a fall he had months ago. Patient did not f /u for this. Pt denies CP/SOB/AP/N/V/D/F/C. Objective - Vital Signs/Intake and Output Vital Signs (last 24 hours): Temp Pulse Resp BP Pulse Ox 99.0 F 83 20 126/75 95 12/14/16 15:11 12/14/16 15:11 12/14/16 15:11 12/14/16 15:11 12/14/16 15:11 - Medications Medications: Current Medications Acetaminophen (Tylenol 325mg Tab) 650 mg PO Q6 PRN PRN Reason: Fever >100.4 F Last Admin: 12/14/16 19:03 Dose: 650 mg Benztropine Mesylate (Cogentin) 1 mg PO Q6 PRN PRN Reason: Other Last Admin: 12/07/16 10:00 Dose: 1 mg Clonidine HCl (Catapres) 0.1 mg PO Q8 PRN PRN Reason: COWS Score More or Equal to 5 Last Admin: 12/07/16 00:37 Dose: 0.1 mg Dicyclomine HCl (Bentyl) 20 mg PO Q8 PRN PRN Reason: ABDOMINAL PAIN Last Admin: 12/13/16 18:15 Dose: 20 mg Gabapentin (Neurontin) 300 mg PO BID [facility] Last Admin: 12/14/16 18:36 Dose: 300 mg Hydroxyzine HCl (Atarax) 50 mg PO Q6H PRN PRN Reason: Anxiety Last Admin: 12/14/16 10:36 Dose: 50 mg Piperacillin Sod/Tazobactam (Sod 3.375 gm/ Sodium Chloride) 100 mls @ 200 mls/ hr IVPB Q6H [facility] Last Admin: 12/14/16 16:39 Dose: 200 mls/hr Sodium Chloride (Sodium Chloride 0.9%) 1,000 mls @ 70 mls/hr IV .[id number] [facility] Last Admin: 12/13/16 09:10 Dose: Not Given Ibuprofen (Motrin Tab) 600 mg PO Q8H PRN PRN Reason: Pain, severe (8-10) Last Admin: 12/14/16 15:02 Dose: 600 mg Levetiracetam (Keppra) 500 mg PO BID [facility] Last Admin: 12/14/16 18:36 Dose: 500 mg Ondansetron HCl (Zofran Tab) 4 mg PO Q8 PRN PRN Reason: Nausea/Vomiting Last Admin: 12/11/16 20:00 Dose: 4 mg Saccharomyces Boulardii (Florastor) 250 mg PO BID [facility] Last Admin: 12/14/16 18:35 Dose: 250 mg Sertraline HCl (Zoloft) 50 mg PO DAILY [facility] Last Admin: 12/14/16 10:01 Dose: 50 mg Trazodone HCl (Desyrel) 100 mg PO HS [facility] Last Admin: 12/13/16 21:26 Dose: 100 mg - Labs Labs: 12/14/16 12:11 12/14/16 12:11 PT 14.2 SECONDS (9.7-12.2) H 12/12/16 07:08 INR 1.3 12/12/16 07:08 APTT 32 SECONDS (21-34) 12/12/16 07:08 - Constitutional Appears: Non-toxic, No Acute Distress - Head Exam Head Exam: NORMAL INSPECTION - Eye Exam Eye Exam: EOMI - ENT Exam ENT Exam: Mucous Membranes Moist - Respiratory Exam Respiratory Exam: Clear to Ausculation Bilateral, NORMAL BREATHING PATTERN. absent: Wheezes, Respiratory Distress - Cardiovascular Exam Cardiovascular Exam: REGULAR RHYTHM, Murmur (+JENNIFER). absent: Bradycardia, Tachycardia - GI/Abdominal Exam GI & Abdominal Exam: Soft, Normal Bowel Sounds. absent: Distended, Tenderness - Extremities Exam Extremities Exam: Normal Inspection. absent: Pedal Edema - Neurological Exam Neurological Exam: Alert, Awake - Psychiatric Exam Psychiatric exam: Normal Affect, Normal Mood - Skin Skin Exam: Dry, Intact, Normal Color, Warm Assessment and Plan - Assessment and Plan (Free Text) Assessment: Fever * CXR 12/12 - heterogenous infiltrate at inferior Right and Mid/inferior left lung zones vs atelectasis with likely small left pleural effusion and Right central venous line terminating at the right atrium; Repeat CXR 12/13 shows right IJ central venous line with tip in the SVC after adjustment and right lower lobe opacity with improvement * F/u Echo 12/12 * Blood cultures 12/12 - Gram positive cocci in chains * Urine culture 12/12 - no growth * Cont Zosyn 3.375 gm Q6H for now and d/c Vancomycin 1 gm Q12H (12/14) - ID recs (Uriel) * 12/13 Vanc trough: 6.4 * NS 70 cc/hr * Tylenol 650 mg PO Q6 prn fever. Due to history of hepatitis, consider switching to a different agent at some point. Low back pain * F/U lumbar spine XR - if no fracture give flexeril 5 mg PO QHS Left shoulder pain/weakness * 2/2 Hx of fall * Left shoulder XR (12/13) - no acute dislocation or fracture, soft tissues unremarkable Diarrhea * Stool Culture/O&P (12/12) - negative for O&P, salmonella, shigella, and campylobacter * Stool negative for leukocytes and occult blood * Serum C. diff antigen and toxin negative History of Seizures * Continue Keppra 500 mg PO BID * Continue Gabapentin 300 mg PO BID History of Depression * Continue Zoloft 50 mg PO daily History of Hepatitis B & C * Monitor LFTs. Currently WNL Pancytopenia * Patient has known hypersplenism and pancytopenia dating back to prior admission * On old admission growth factors like Neupogen (Filgrastim) were recommended for low WBC * Heme/Onc consulted (Alyx) - recs against IV iron supplementation at this time until infection resolves, transfusion support prn, plans to review peripheral smear, BM evaluation if counts do not return to baseline * HIV 1&2 Ab screen negative * Stool negative for occult blood Systolic ejection murmur * Likely 2/2 aortic valve replacement x2 * Echo 12/12 showed vegitations * F/U CAS[facility] per cardio consult on 12/14 (Dr. Leyva) * Positive blood culture for Strep mitis * F/U Repeated BC (ordered 12/14) * Cont zosyn and d/c vanc per Dr. Trevino as stated above * Hx of IV drug use/porcine valve Prophylactic Measure * Heparin and GI ppx held due to platelets * SCDs for now <Chichi Dc V - Last Filed: 12/21/16 17:39> Objective - Vital Signs/Intake and Output Vital Signs (last 24 hours): Temp Pulse Resp BP Pulse Ox 98.6 F 96 H 20 116/70 97 12/21/16 16:04 12/21/16 16:04 12/21/16 16:04 12/21/16 16:04 12/21/16 16:04 Intake and Output: 12/21/16 12/21/16 06:59 18:59 Intake Total 1040 100 Output Total 1400 Balance -360 100 - Medications Medications: Current Medications Acetaminophen (Tylenol 325mg Tab) 650 mg PO Q6 PRN PRN Reason: Fever >100.4 F Last Admin: 12/14/16 19:03 Dose: 650 mg Benztropine Mesylate (Cogentin) 1 mg PO Q6 PRN PRN Reason: Other Last Admin: 12/07/16 10:00 Dose: 1 mg Clonidine HCl (Catapres) 0.1 mg PO Q8 PRN PRN Reason: COWS Score More or Equal to 5 Last Admin: 12/07/16 00:37 Dose: 0.1 mg Cyclobenzaprine HCl (Flexeril) 5 mg PO TID PRN PRN Reason: Muscle spasm Last Admin: 12/21/16 17:04 Dose: 5 mg Dicyclomine HCl (Bentyl) 20 mg PO Q8 PRN PRN Reason: ABDOMINAL PAIN Last Admin: 12/13/16 18:15 Dose: 20 mg Gabapentin (Neurontin) 300 mg PO BID [facility] Last Admin: 12/21/16 17:02 Dose: 300 mg Hydroxyzine HCl (Atarax) 50 mg PO Q6H PRN PRN Reason: Anxiety Last Admin: 12/21/16 14:30 Dose: 50 mg Piperacillin Sod/Tazobactam (Sod 3.375 gm/ Sodium Chloride) 100 mls @ 200 mls/ hr IVPB Q6H [facility] Last Admin: 12/21/16 17:02 Dose: 200 mls/hr Levetiracetam (Keppra) 500 mg PO BID [facility] Last Admin: 12/21/16 17:02 Dose: 500 mg Ondansetron HCl (Zofran Tab) 4 mg PO Q8 PRN PRN Reason: Nausea/Vomiting Last Admin: 12/11/16 20:00 Dose: 4 mg Saccharomyces Boulardii (Florastor) 250 mg PO BID [facility] Sertraline HCl (Zoloft) 50 mg PO DAILY [facility] Last Admin: 12/21/16 09:24 Dose: 50 mg Trazodone HCl (Desyrel) 100 mg PO HS [facility] Last Admin: 12/20/16 22:03 Dose: 100 mg - Labs Labs: 12/21/16 07:24 12/21/16 07:24 PT 14.2 SECONDS (9.7-12.2) H 12/12/16 07:08 INR 1.3 12/12/16 07:08 APTT 32 SECONDS (21-34) 12/12/16 07:08 Attending/Attestation - Attestation I have personally seen and examined this patient.: Yes I have fully participated in the care of the patient.: Yes I have reviewed all pertinent clinical information, including history, physical exam and plan: Yes Notes (Text): This is late computer entry for 12/14/16. Patient seen, examined, and case discussed with day-time resident. Patient reports low back pain and left shoulder pain and reports secondary from a fall some months ago but did not go to the hospital. Patient is asking for more muscle relaxant. Will order for lumbar xray r/o fracture. Patient completed echocardiogram to monitor for vegetations in light of current IV drug use, fever, +blood cultures, and prior hx of endocarditis. Discussed with Dr. Luz, reading flavoring maker for echocardiogram at the end of shift, recommended for CASPER; will f/u Dr. Leyva application support technician flavoring maker Patient re-ordered for repeat blood cultures. Resident spoke with infectious disease, recommended to continue Zosyn and d/c Vancomycin Assessment/Plan 1) Sepsis * Criteria: WBC<4; Temp: 104 F; positive blood cultures; Lactate: 1.2 on admission * Infectious Disease (Dr. Trevino) on board * Echocardiogram (12/14/16): left ventricle systolic function is normal; EF: 60- 65%, Transmital doppler flow pattern is Grade I abnormal relaxation pattern. Right ventricular systolic function is normal. Aortic valve bioprosthetic. Mobile density seen with high velocities across Aortic valve highly suspicious for aortic valve endocarditis. recommended for CASPER * Blood cultures (12/12/16): Strep mitis X2 * Urine culture (12/12/16): no growth * D/C Vancomycin 1 gm Q12H (active since ) per ID * Zosyn 3.375 gm Q6H (active since 12/12/16) * NS 70 cc/hr * Tylenol 650 mg PO Q6 prn fever. Monitor liver function tests in light of hepatitis hx * Concern for possible endocarditis 2) Endocarditis * Infectious Disease (Dr. Trevino) on board-->help appreciated * Cardiology (Dr. Leyva) f/u * Echocardiogram (12/14/16): left ventricle systolic function is normal; EF: 60- 65%, Transmital doppler flow pattern is Grade I abnormal relaxation pattern. Right ventricular systolic function is normal. Aortic valve bioprosthetic. Mobile density seen with high velocities across Aortic valve highly suspicious for aortic valve endocarditis. 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 Currently WNL 9) Pancytopenia * Heme-Onc (Dr. 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 On old admission growth factors like Neupogen (Filgrastim) were recommended for low WBC. * Monitor H/H and platelets 10) Prophylactic Measure * Heparin and GI ppx held due thrombocytopenia * SCDs for now
--- NOTE | 2016-12-14 20:46 | CP.PCM.PN ---
Subjective - Date & Time of Evaluation Date of Evaluation: 12/14/16 Time of Evaluation: 18:30 - Subjective Subjective: No complaints. Objective - Vital Signs/Intake and Output Vital Signs (last 24 hours): Temp Pulse Resp BP Pulse Ox 99.0 F 83 20 126/75 95 12/14/16 15:11 12/14/16 15:11 12/14/16 15:11 12/14/16 15:11 12/14/16 15:11 - Medications Medications: Current Medications Acetaminophen (Tylenol 325mg Tab) 650 mg PO Q6 PRN PRN Reason: Fever >100.4 F Last Admin: 12/14/16 19:03 Dose: 650 mg Benztropine Mesylate (Cogentin) 1 mg PO Q6 PRN PRN Reason: Other Last Admin: 12/07/16 10:00 Dose: 1 mg Clonidine HCl (Catapres) 0.1 mg PO Q8 PRN PRN Reason: COWS Score More or Equal to 5 Last Admin: 12/07/16 00:37 Dose: 0.1 mg Dicyclomine HCl (Bentyl) 20 mg PO Q8 PRN PRN Reason: ABDOMINAL PAIN Last Admin: 12/13/16 18:15 Dose: 20 mg Gabapentin (Neurontin) 300 mg PO BID [facility] Last Admin: 12/14/16 18:36 Dose: 300 mg Hydroxyzine HCl (Atarax) 50 mg PO Q6H PRN PRN Reason: Anxiety Last Admin: 12/14/16 10:36 Dose: 50 mg Piperacillin Sod/Tazobactam (Sod 3.375 gm/ Sodium Chloride) 100 mls @ 200 mls/ hr IVPB Q6H [facility] Last Admin: 12/14/16 16:39 Dose: 200 mls/hr Sodium Chloride (Sodium Chloride 0.9%) 1,000 mls @ 70 mls/hr IV .[id number] [facility] Last Admin: 12/13/16 09:10 Dose: Not Given Ibuprofen (Motrin Tab) 600 mg PO Q8H PRN PRN Reason: Pain, severe (8-10) Last Admin: 12/14/16 15:02 Dose: 600 mg Levetiracetam (Keppra) 500 mg PO BID [facility] Last Admin: 12/14/16 18:36 Dose: 500 mg Ondansetron HCl (Zofran Tab) 4 mg PO Q8 PRN PRN Reason: Nausea/Vomiting Last Admin: 12/11/16 20:00 Dose: 4 mg Saccharomyces Boulardii (Florastor) 250 mg PO BID [facility] Last Admin: 12/14/16 18:35 Dose: 250 mg Sertraline HCl (Zoloft) 50 mg PO DAILY [facility] Last Admin: 12/14/16 10:01 Dose: 50 mg Trazodone HCl (Desyrel) 100 mg PO HS [facility] Last Admin: 12/13/16 21:26 Dose: 100 mg - Labs Labs: 12/14/16 12:11 12/14/16 12:11 PT 14.2 SECONDS (9.7-12.2) H 12/12/16 07:08 INR 1.3 12/12/16 07:08 APTT 32 SECONDS (21-34) 12/12/16 07:08 - Head Exam Head Exam: ATRAUMATIC - Eye Exam Eye Exam: Normal appearance - ENT Exam ENT Exam: Mucous Membranes Dry - Respiratory Exam Respiratory Exam: NORMAL BREATHING PATTERN - Cardiovascular Exam Cardiovascular Exam: +S1, +S2 - GI/Abdominal Exam GI & Abdominal Exam: Normal Bowel Sounds Assessment and Plan (1) Pancytopenia Assessment & Plan: multifactorial, counts improving HIV, sepsis, liver diseases with splenic sequestration borderline iron stores; recommend against IV iron supplementation until infection resolves transfusion support PRN Status: Acute
[2016-12-15] MEDS: Piperacillin/Tazobact 3.375 GM in Sodium Chloride 100 ML IVPB SCH ×4 (03:36→22:04)
[2016-12-15 07:28] LABS: BASO % 0.3 % (0.0-2.0); EOS % 0.6 % (0.0-4.0); HEMATOCRIT 28.4 % (35.0-51.0); LYMPH # 0.5 K/uL (1.0-4.3); LYMPH % 10.2 % (20.0-40.0); MEAN CELL VOLUME 76.6 fL (80.0-94.0); MEAN CORPUSCULAR HEMOGLOBIN 25.5 pg (27.0-31.0); MEAN CORPUSCULAR HGB CONC 33.3 g/dL (33.0-37.0); MEAN PLATELET VOLUME 8.5 fL (7.2-11.7); MONO # 0.2 K/uL (0.0-0.8); MONO % 4.7 % (0.0-10.0); RED CELL DISTRIBUTION WIDTH 15.5 % (11.5-14.5); WHITE BLOOD COUNT 4.6 K/uL (4.8-10.8)
--- NOTE | 2016-12-15 07:35 | CP.PCM.PN ---
<Eliana Stewart - Last Filed: 12/15/16 14:01> Subjective - Date & Time of Evaluation Date of Evaluation: 12/15/16 Time of Evaluation: 07:33 - Subjective Subjective: Pt S&E at bedside. Pt resting comfortably in bed. Pt c/o insomnia, low back pain , and left shoulder weakness and pain. Shoulder xray was and unremarkable. Lumbar Xray will be f/u today. Pt says this is due to a fall he had months ago. Patient did not f/u for this. Pt also c/o diarrhea. Pt denies CP/SOB/AP/N/V/F/C. Objective - Vital Signs/Intake and Output Vital Signs (last 24 hours): Temp Pulse Resp BP Pulse Ox 98.8 F 73 20 104/61 97 12/14/16 23:50 12/15/16 03:47 12/14/16 23:50 12/14/16 23:50 12/14/16 23:50 Intake and Output: 12/15/16 12/15/16 06:59 18:59 Intake Total 1720 Output Total 900 Balance 820 - Medications Medications: Current Medications Acetaminophen (Tylenol 325mg Tab) 650 mg PO Q6 PRN PRN Reason: Fever >100.4 F Last Admin: 12/14/16 19:03 Dose: 650 mg Benztropine Mesylate (Cogentin) 1 mg PO Q6 PRN PRN Reason: Other Last Admin: 12/07/16 10:00 Dose: 1 mg Clonidine HCl (Catapres) 0.1 mg PO Q8 PRN PRN Reason: COWS Score More or Equal to 5 Last Admin: 12/07/16 00:37 Dose: 0.1 mg Dicyclomine HCl (Bentyl) 20 mg PO Q8 PRN PRN Reason: ABDOMINAL PAIN Last Admin: 12/13/16 18:15 Dose: 20 mg Gabapentin (Neurontin) 300 mg PO BID [facility] Last Admin: 12/14/16 18:36 Dose: 300 mg Hydroxyzine HCl (Atarax) 50 mg PO Q6H PRN PRN Reason: Anxiety Last Admin: 12/14/16 10:36 Dose: 50 mg Piperacillin Sod/Tazobactam (Sod 3.375 gm/ Sodium Chloride) 100 mls @ 200 mls/ hr IVPB Q6H [facility] Last Admin: 12/15/16 03:36 Dose: 200 mls/hr Ibuprofen (Motrin Tab) 600 mg PO Q8H PRN PRN Reason: Pain, severe (8-10) Last Admin: 12/14/16 15:02 Dose: 600 mg Levetiracetam (Keppra) 500 mg PO BID [facility] Last Admin: 12/14/16 18:36 Dose: 500 mg Ondansetron HCl (Zofran Tab) 4 mg PO Q8 PRN PRN Reason: Nausea/Vomiting Last Admin: 12/11/16 20:00 Dose: 4 mg Saccharomyces Boulardii (Florastor) 250 mg PO BID [facility] Last Admin: 12/14/16 18:35 Dose: 250 mg Sertraline HCl (Zoloft) 50 mg PO DAILY [facility] Last Admin: 12/14/16 10:01 Dose: 50 mg Trazodone HCl (Desyrel) 100 mg PO HS [facility] Last Admin: 12/14/16 22:02 Dose: 100 mg - Labs Labs: 12/14/16 12:11 12/14/16 12:11 PT 14.2 SECONDS (9.7-12.2) H 12/12/16 07:08 INR 1.3 12/12/16 07:08 APTT 32 SECONDS (21-34) 12/12/16 07:08 - Constitutional Appears: Non-toxic, No Acute Distress - Head Exam Head Exam: NORMAL INSPECTION - Eye Exam Eye Exam: EOMI - ENT Exam ENT Exam: Mucous Membranes Moist - Respiratory Exam Respiratory Exam: Clear to Ausculation Bilateral, NORMAL BREATHING PATTERN - Cardiovascular Exam Cardiovascular Exam: REGULAR RHYTHM, Murmur (JENNIFER). absent: Bradycardia, Tachycardia - GI/Abdominal Exam GI & Abdominal Exam: Soft, Normal Bowel Sounds. absent: Tenderness - Extremities Exam Extremities Exam: Normal Inspection - Back Exam Back Exam: tenderness (diffuse lower back) - Neurological Exam Neurological Exam: Alert, Awake, Oriented x3 - Psychiatric Exam Psychiatric exam: Normal Affect, Normal Mood - Skin Skin Exam: Dry, Intact, Normal Color, Warm. absent: Rash Additional comments: No immunologic signs Assessment and Plan - Assessment and Plan (Free Text) Assessment: Fever * CXR 12/12 - heterogenous infiltrate at inferior Right and Mid/inferior left lung zones vs atelectasis with likely small left pleural effusion and Right central venous line terminating at the right atrium; Repeat CXR 12/13 shows right IJ central venous line with tip in the SVC after adjustment and right lower lobe opacity with improvement * Echo 12/12: Mobile density seen with high velocities across AV highly suspicious for AV endocarditis, transmitral doppler flow pattern is grade 1 ( abnormal relaxation pattern), LV and RV systolic function normal, EF = 60-65% * Blood cultures 12/12 - Gram positive cocci in chains (Strep mitis in final read ) * Urine culture 12/12 - no growth * Cont Zosyn 3.375 gm Q6H for now and d/c Vancomycin 1 gm Q12H (12/14) - ID recs (Mangia) * 12/13 Vanc trough: 6.4 * NS 70 cc/hr * Tylenol 650 mg PO Q6 prn fever. Due to history of hepatitis, consider switching to a different agent at some point. Low back pain * lumbar spine XR - No abnormalities seen * flexeril 5 mg PO QHS Left shoulder pain/weakness * 2/2 Hx of fall * Left shoulder XR (12/13) - no acute dislocation or fracture, soft tissues unremarkable Diarrhea * Stool Culture/O&P (12/12) - negative for O&P, salmonella, shigella, and campylobacter * Stool negative for leukocytes and occult blood (12/12) * Serum C. diff antigen and toxin negative (12/12) * F/U Stool C diff and repeat leukocytes History of Seizures * Continue Keppra 500 mg PO BID * Continue Gabapentin 300 mg PO BID History of Depression * Continue Zoloft 50 mg PO daily History of Hepatitis B & C * Monitor LFTs. 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 Leyva): does not recommend CASPER at this time * Positive blood culture for Strep mitis * F/U Repeated BC (ordered 12/14) * Cont zosyn and d/c vanc per Dr. Trevino as stated above * Hx of IV drug use/porcine valve * F/U CT surg consult (Dr. Peralta) - recs appreciated Prophylactic Measure * Heparin and GI ppx held due to platelets * SCDs for now <Chichi Dc V - Last Filed: 12/21/16 17:48> Objective - Vital Signs/Intake and Output Vital Signs (last 24 hours): Temp Pulse Resp BP Pulse Ox 98.6 F 96 H 20 116/70 97 12/21/16 16:04 12/21/16 16:04 12/21/16 16:04 12/21/16 16:04 12/21/16 16:04 Intake and Output: 12/21/16 12/21/16 06:59 18:59 Intake Total 1040 100 Output Total 1400 Balance -360 100 - Medications Medications: Current Medications Acetaminophen (Tylenol 325mg Tab) 650 mg PO Q6 PRN PRN Reason: Fever >100.4 F Last Admin: 12/14/16 19:03 Dose: 650 mg Benztropine Mesylate (Cogentin) 1 mg PO Q6 PRN PRN Reason: Other Last Admin: 12/07/16 10:00 Dose: 1 mg Clonidine HCl (Catapres) 0.1 mg PO Q8 PRN PRN Reason: COWS Score More or Equal to 5 Last Admin: 12/07/16 00:37 Dose: 0.1 mg Cyclobenzaprine HCl (Flexeril) 5 mg PO TID PRN PRN Reason: Muscle spasm Last Admin: 12/21/16 17:04 Dose: 5 mg Dicyclomine HCl (Bentyl) 20 mg PO Q8 PRN PRN Reason: ABDOMINAL PAIN Last Admin: 12/13/16 18:15 Dose: 20 mg Gabapentin (Neurontin) 300 mg PO BID [facility] Last Admin: 12/21/16 17:02 Dose: 300 mg Hydroxyzine HCl (Atarax) 50 mg PO Q6H PRN PRN Reason: Anxiety Last Admin: 12/21/16 14:30 Dose: 50 mg Piperacillin Sod/Tazobactam (Sod 3.375 gm/ Sodium Chloride) 100 mls @ 200 mls/ hr IVPB Q6H [facility] Last Admin: 12/21/16 17:02 Dose: 200 mls/hr Levetiracetam (Keppra) 500 mg PO BID [facility] Last Admin: 12/21/16 17:02 Dose: 500 mg Ondansetron HCl (Zofran Tab) 4 mg PO Q8 PRN PRN Reason: Nausea/Vomiting Last Admin: 12/11/16 20:00 Dose: 4 mg Saccharomyces Boulardii (Florastor) 250 mg PO BID [facility] Sertraline HCl (Zoloft) 50 mg PO DAILY [facility] Last Admin: 12/21/16 09:24 Dose: 50 mg Trazodone HCl (Desyrel) 100 mg PO HS [facility] Last Admin: 12/20/16 22:03 Dose: 100 mg - Labs Labs: 12/21/16 07:24 12/21/16 07:24 PT 14.2 SECONDS (9.7-12.2) H 12/12/16 07:08 INR 1.3 12/12/16 07:08 APTT 32 SECONDS (21-34) 12/12/16 07:08 Attending/Attestation - Attestation I have personally seen and examined this patient.: Yes I have fully participated in the care of the patient.: Yes I have reviewed all pertinent clinical information, including history, physical exam and plan: Yes Notes (Text): This is late computer entry for 12/15/16. Patient seen, examined, and case discussed with day-time resident. Patient reports low back pain awaiting report; Flexeril PRN at night. Discussed with cardiology, Dr Leyva-->knows patient from prior hx of endocarditis in [facility] [place]; does not recommended for CASPER given that the patient has endocarditis Will order for thoracic evaluation given prior hx of aortic replacement; endocarditis; vegetation overlying porcine valve Will continue IV abx for bactermia/endocarditis Assessment/Plan 1) Sepsis * Criteria: WBC<4; Temp: 104 F; positive blood cultures; Lactate: 1.2 on admission * Infectious Disease (Dr. Trevino) on board * Echocardiogram (12/14/16): left ventricle systolic function is normal; EF: 60- 65%, Transmital doppler flow pattern is Grade I abnormal relaxation pattern. Right ventricular systolic function is normal. Aortic valve bioprosthetic. Mobile density seen with high velocities across Aortic valve highly suspicious for aortic valve endocarditis. recommended for CASPER * Blood cultures (12/12/16): Strep mitis X2 * Blood culture (12/14/16): f/u * Urine culture (12/12/16): no growth * D/C Vancomycin 1 gm Q12H (active since ) per ID * Zosyn 3.375 gm Q6H (active since 12/12/16) * NS 70 cc/hr * Tylenol 650 mg PO Q6 prn fever. Monitor liver function tests in light of hepatitis hx * Concern for possible endocarditis 2) Endocarditis * Infectious Disease (Dr. Trevino) on board-->help appreciated * Cardiology (Dr. Leyva) f/u * Echocardiogram (12/14/16): left ventricle systolic function is normal; EF: 60- 65%, Transmital doppler flow pattern is Grade I abnormal relaxation pattern. Right ventricular systolic function is normal. Aortic valve bioprosthetic. Mobile density seen with high velocities across Aortic valve highly suspicious for aortic valve endocarditis. 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 Diff antigen and toxin: negative * Repeat Stool studies in light of IV abx use 7) History of Seizures * Continue Keppra 500 mg PO BID * Continue Gabapentin 300 mg PO BID 8) History of Depression * Continue Zoloft 50 mg PO daily 9) History of Hepatitis B & C * Monitor LFTs. Currently WNL 10) Pancytopenia * Heme-Onc (Dr. 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 On old admission growth factors like Neupogen (Filgrastim) were recommended for low WBC. * Monitor H/H and platelets 11) Prophylactic Measure * Heparin and GI ppx held due thrombocytopenia * SCDs for now
[2016-12-15 07:55] LABS: CHLORIDE 106 mmol/L (98-107); POTASSIUM 3.8 mmol/L (3.6-5.2); SODIUM 140 mmol/L (132-148)
[2016-12-15 07:57] LABS: ALB/GLOB RATIO 0.7 (1.0-2.1); ALKALINE PHOSPHATASE 71 U/L (38-126); ALT/SGPT 33 U/L (21-72); AST/SGOT 23 U/L (17-59); BILIRUBIN,TOTAL 0.8 mg/dL (0.2-1.3); BLOOD UREA NITROGEN 12 mg/dL (9-20); CARBON DIOXIDE 22 mmol/L (22-30); GFR AFRICAN-AMERICAN > 60; TOTAL PROTEIN 6.1 g/dL (6.3-8.3)
[2016-12-15 07:58] LABS: CALCIUM 8.4 mg/dl (8.6-10.4); GLUCOSE,RANDOM 128 mg/dL (75-110); MAGNESIUM 1.7 mg/dL (1.6-2.3)
[2016-12-15] MEDS ORDERED: Pneumococcal 23-Valent Vaccine IM ONE (10:00)
--- NOTE | 2016-12-15 10:07 | RAD ---
PROCEDURE: Radiographs of the Lumbar Spine. HISTORY: hx fall 2 months ago COMPARISON: No prior. FINDINGS: BONES: Vertebral bodies maintained in height. The spinous processes are intact. The transverse processes are suboptimally visualized. No fracture identified. Normal alignment maintained. DISC SPACES: Unremarkable. OTHER FINDINGS: None. IMPRESSION: Unremarkable radiographs of the lumbar spine.
[2016-12-15] MEDS: Saccharomyces Boulardi 250 mg Cap PO SCH ×2 (10:42→18:00)
[2016-12-15] MEDS: Sodium Chloride 0.9% 1,000 ML IV SCH (12:23)
--- NOTE | 2016-12-15 14:52 | CP.PCM.CON ---
History of Present Illness - History of Present Illness History of Present Illness: CONSULT FOR DR AUSTIN Patient is a 46yo M with a PMHx of Endocarditis, HepB, HepC. Surgery was consulted for possible infected mechanical aortic valve . Patient has been in the hospital for heroin withdrawal on 12/04. Patient is currently stable with no current complaints. Denies Chest pain, SOB, palpatations, fevers and chills. 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 +heroin, cocaine use Past Patient History - Infectious Disease Hx of Infectious Diseases: None - Tetanus Immunizations Tetanus Immunization: Unknown - Past Medical History & Family History Past Medical History?: Yes - Past Social History Smoking Status: Former Smoker - CARDIAC Hx Congestive Heart Failure: Yes - PULMONARY Hx Respiratory Disorders: No Hx Tuberculosis: No - NEUROLOGICAL Hx Seizures: Yes (Epileptic) - HEENT Hx HEENT Problems: No - RENAL Hx Chronic Kidney Disease: No - ENDOCRINE/METABOLIC Hx Endocrine Disorders: No - HEMATOLOGICAL/ONCOLOGICAL Hx Anemia: Yes Hx Human Immunodeficiency Virus (HIV): Yes - INTEGUMENTARY Hx Dermatological Problems: Yes Hx Cellulitis: Yes Other/Comment: Hx of abscesses to right arm and left side of neck - MUSCULOSKELETAL/RHEUMATOLOGICAL Hx Arthritis: No Hx Fractures: No Hx Osteoporosis: No Hx Rheumatoid Arthritis: No - GASTROINTESTINAL Hx Gastrointestinal Disorders: No - GENITOURINARY/GYNECOLOGICAL Hx Sexually Transmitted Disorders: No - PSYCHIATRIC Hx Substance Use: Yes - SURGICAL HISTORY Hx Coronary Artery Bypass Graft: (?) - ANESTHESIA Hx Anesthesia: Yes Hx Anesthesia Reactions: No Hx Malignant Hyperthermia: No Meds Allergies/Adverse Reactions: Allergies Allergy/AdvReac Type Severity Reaction Status Date / Time haloperidol [From Haldol] Allergy REDNESS Verified 09/16/16 00:44 turkey Allergy red Uncoded 09/16/16 00:44 blotches - Medications Medications: Current Medications Acetaminophen (Tylenol 325mg Tab) 650 mg PO Q6 PRN PRN Reason: Fever >100.4 F Last Admin: 12/14/16 19:03 Dose: 650 mg Benztropine Mesylate (Cogentin) 1 mg PO Q6 PRN PRN Reason: Other Last Admin: 12/07/16 10:00 Dose: 1 mg Clonidine HCl (Catapres) 0.1 mg PO Q8 PRN PRN Reason: COWS Score More or Equal to 5 Last Admin: 12/07/16 00:37 Dose: 0.1 mg Cyclobenzaprine HCl (Flexeril) 5 mg PO HS PRN PRN Reason: Pain, moderate (4-7) Dicyclomine HCl (Bentyl) 20 mg PO Q8 PRN PRN Reason: ABDOMINAL PAIN Last Admin: 12/13/16 18:15 Dose: 20 mg Gabapentin (Neurontin) 300 mg PO BID [facility] Last Admin: 12/15/16 10:34 Dose: 300 mg Hydroxyzine HCl (Atarax) 50 mg PO Q6H PRN PRN Reason: Anxiety Last Admin: 12/15/16 10:36 Dose: 50 mg Piperacillin Sod/Tazobactam (Sod 3.375 gm/ Sodium Chloride) 100 mls @ 200 mls/ hr IVPB Q6H [facility] Last Admin: 12/15/16 10:33 Dose: 200 mls/hr Ibuprofen (Motrin Tab) 600 mg PO Q8H PRN PRN Reason: Pain, severe (8-10) Last Admin: 12/14/16 15:02 Dose: 600 mg Levetiracetam (Keppra) 500 mg PO BID [facility] Last Admin: 12/15/16 10:42 Dose: 500 mg Ondansetron HCl (Zofran Tab) 4 mg PO Q8 PRN PRN Reason: Nausea/Vomiting Last Admin: 12/11/16 20:00 Dose: 4 mg Saccharomyces Boulardii (Florastor) 250 mg PO BID [facility] Last Admin: 12/15/16 10:42 Dose: 250 mg Sertraline HCl (Zoloft) 50 mg PO DAILY [facility] Last Admin: 12/15/16 10:34 Dose: 50 mg Trazodone HCl (Desyrel) 100 mg PO HS [facility] Last Admin: 12/14/16 22:02 Dose: 100 mg Physical Exam - Constitutional Appears: Non-toxic, No Acute Distress - Head Exam Head Exam: ATRAUMATIC - ENT Exam ENT Exam: Mucous Membranes Moist - Respiratory Exam Respiratory Exam: Clear to Auscultation Bilateral, NORMAL BREATHING PATTERN - Cardiovascular Exam Cardiovascular Exam: REGULAR RHYTHM, +S1, +S2 - GI/Abdominal Exam GI & Abdominal Exam: Soft. absent: Distended, Firm, Guarding, Rigid, Tenderness - Extremities Exam Extremities exam: Negative for: pedal edema, tenderness - Neurological Exam Neurological exam: Alert, Oriented x3 - Psychiatric Exam Psychiatric exam: Normal Affect, Normal Mood - Skin Skin Exam: Dry, Intact, Normal Color, Warm Results - Vital Signs Recent Vital Signs: Last Vital Signs Temp 99.4 F 12/15/16 07:45 Pulse 86 12/15/16 08:00 Resp 20 12/15/16 07:45 BP 127/81 12/15/16 07:45 Pulse Ox 98 12/15/16 07:45 - Labs Result Diagrams: 12/15/16 07:11 12/15/16 07:11 Labs: Laboratory Results - last 24 hr 12/15/16 12/15/16 07:11 07:11 WBC 4.6 L RBC 3.71 L Hgb 9.5 L Hct 28.4 L MCV 76.6 L MCH 25.5 L MCHC 33.3 RDW 15.5 H Plt Count 84 L MPV 8.5 Neut % (Auto) 84.2 H Lymph % (Auto) 10.2 L Sargent % (Auto) 4.7 Eos % (Auto) 0.6 Baso % (Auto) 0.3 Neut # 3.9 Lymph # 0.5 L Sargent # 0.2 Eos # 0.0 Baso # 0.0 Sodium 140 Potassium 3.8 Chloride 106 Carbon Dioxide 22 Anion Gap 16 BUN 12 Creatinine 0.8 Est GFR ( Amer) > 60 Est GFR (Non-Af Amer) > 60 Random Glucose 128 H Calcium 8.4 L Phosphorus 3.0 Magnesium 1.7 Total Bilirubin 0.8 AST 23 ALT 33 Alkaline Phosphatase 71 Total Protein 6.1 L Albumin 2.6 L Globulin 3.5 Albumin/Globulin Ratio 0.7 L Assessment & Plan - Assessment and Plan (Free Text) Assessment: 46M with hx of aortic valve replacement and endocarditis TTE: 65% LVEF, density seen on aortic valve suggestive of aortic valve endocarditis Plan: - continue antibiotics - recommend CASPER for further evaluation of valves - recommend patient follow up original surgeon/transfer to hospital of valve replacement Discussed with Dr. Kathryn Mena, PGY2
--- NOTE | 2016-12-15 17:47 | CP.PCM.PN ---
Subjective - Date & Time of Evaluation Date of Evaluation: 12/15/16 Time of Evaluation: 09:00 - Subjective Subjective: cultures + for strep mitis will need to cont iv rx cardio re-eval Objective - Vital Signs/Intake and Output Vital Signs (last 24 hours): Temp Pulse Resp BP Pulse Ox 99.7 F H 86 20 129/76 95 12/15/16 15:10 12/15/16 15:10 12/15/16 15:10 12/15/16 15:10 12/15/16 15:10 Intake and Output: 12/15/16 12/15/16 06:59 18:59 Intake Total 1720 Output Total 900 Balance 820 - Medications Medications: Current Medications Acetaminophen (Tylenol 325mg Tab) 650 mg PO Q6 PRN PRN Reason: Fever >100.4 F Last Admin: 12/14/16 19:03 Dose: 650 mg Benztropine Mesylate (Cogentin) 1 mg PO Q6 PRN PRN Reason: Other Last Admin: 12/07/16 10:00 Dose: 1 mg Clonidine HCl (Catapres) 0.1 mg PO Q8 PRN PRN Reason: COWS Score More or Equal to 5 Last Admin: 12/07/16 00:37 Dose: 0.1 mg Cyclobenzaprine HCl (Flexeril) 5 mg PO HS PRN PRN Reason: Pain, moderate (4-7) Dicyclomine HCl (Bentyl) 20 mg PO Q8 PRN PRN Reason: ABDOMINAL PAIN Last Admin: 12/13/16 18:15 Dose: 20 mg Gabapentin (Neurontin) 300 mg PO BID [facility] Last Admin: 12/15/16 10:34 Dose: 300 mg Hydroxyzine HCl (Atarax) 50 mg PO Q6H PRN PRN Reason: Anxiety Last Admin: 12/15/16 10:36 Dose: 50 mg Piperacillin Sod/Tazobactam (Sod 3.375 gm/ Sodium Chloride) 100 mls @ 200 mls/ hr IVPB Q6H [facility] Last Admin: 12/15/16 17:23 Dose: 200 mls/hr Ibuprofen (Motrin Tab) 600 mg PO Q8H PRN PRN Reason: Pain, severe (8-10) Last Admin: 12/14/16 15:02 Dose: 600 mg Levetiracetam (Keppra) 500 mg PO BID [facility] Last Admin: 12/15/16 10:42 Dose: 500 mg Ondansetron HCl (Zofran Tab) 4 mg PO Q8 PRN PRN Reason: Nausea/Vomiting Last Admin: 12/11/16 20:00 Dose: 4 mg Saccharomyces Boulardii (Florastor) 250 mg PO BID [facility] Last Admin: 12/15/16 10:42 Dose: 250 mg Sertraline HCl (Zoloft) 50 mg PO DAILY [facility] Last Admin: 12/15/16 10:34 Dose: 50 mg Trazodone HCl (Desyrel) 100 mg PO HS [facility] Last Admin: 12/14/16 22:02 Dose: 100 mg - Labs Labs: 12/15/16 07:11 12/15/16 07:11 PT 14.2 SECONDS (9.7-12.2) H 12/12/16 07:08 INR 1.3 12/12/16 07:08 APTT 32 SECONDS (21-34) 12/12/16 07:08 - Constitutional Appears: Non-toxic - Head Exam Head Exam: NORMOCEPHALIC - Eye Exam Eye Exam: PERRL - ENT Exam ENT Exam: Mucous Membranes Dry - Neck Exam Neck Exam: absent: Lymphadenopathy - Respiratory Exam Respiratory Exam: Decreased Breath Sounds - Cardiovascular Exam Cardiovascular Exam: REGULAR RHYTHM - GI/Abdominal Exam GI & Abdominal Exam: Distended, Soft Assessment and Plan (1) Schizoaffective disorder Status: Acute (2) Alcohol abuse Status: Acute (3) Bipolar 1 disorder, depressed Status: Acute (4) Leucopenia Status: Acute (5) Pancytopenia Status: Acute (6) S/P aortic valve replacement Status: Acute - Assessment and Plan (Free Text) Assessment: likely endocarditis cont iv rx for 6 weeks Plan: consider echo /rod will repeat blood cultures
[2016-12-16] MEDS: Piperacillin/Tazobact 3.375 GM in Sodium Chloride 100 ML IVPB SCH ×4 (03:17→21:57)
[2016-12-16] MEDS: Sodium Chloride 0.9% 1,000 ML IV SCH (04:11)
[2016-12-16 06:24] LABS: BASO % 0.3 % (0.0-2.0); EOS % 0.5 % (0.0-4.0); HEMATOCRIT 26.7 % (35.0-51.0); LYMPH # 0.5 K/uL (1.0-4.3); LYMPH % 15.3 % (20.0-40.0); MEAN CELL VOLUME 76.5 fL (80.0-94.0); MEAN CORPUSCULAR HEMOGLOBIN 25.3 pg (27.0-31.0); MEAN CORPUSCULAR HGB CONC 33.1 g/dL (33.0-37.0); MEAN PLATELET VOLUME 8.6 fL (7.2-11.7); MONO # 0.2 K/uL (0.0-0.8); MONO % 6.2 % (0.0-10.0); RED CELL DISTRIBUTION WIDTH 15.6 % (11.5-14.5); WHITE BLOOD COUNT 3.3 K/uL (4.8-10.8)
[2016-12-16 06:36] LABS: CHLORIDE 107 mmol/L (98-107); SODIUM 141 mmol/L (132-148)
[2016-12-16 06:37] LABS: POTASSIUM 3.6 mmol/L (3.6-5.2)
[2016-12-16 06:38] LABS: GFR AFRICAN-AMERICAN > 60
[2016-12-16 06:39] LABS: ALB/GLOB RATIO 0.7 (1.0-2.1); ALKALINE PHOSPHATASE 60 U/L (38-126); ALT/SGPT 29 U/L (21-72); AST/SGOT 20 U/L (17-59); BILIRUBIN,TOTAL 0.5 mg/dL (0.2-1.3); BLOOD UREA NITROGEN 11 mg/dL (9-20); CARBON DIOXIDE 24 mmol/L (22-30); GLUCOSE,RANDOM 142 mg/dL (75-110); PHOSPHOROUS 3.5 mg/dL (2.5-4.5); TOTAL PROTEIN 5.6 g/dL (6.3-8.3)
[2016-12-16 06:40] LABS: CALCIUM 8.1 mg/dl (8.6-10.4); MAGNESIUM 1.8 mg/dL (1.6-2.3)
--- NOTE | 2016-12-16 07:18 | CP.PCM.PN ---
<Eliana Stewart - Last Filed: 12/16/16 16:24> Subjective - Date & Time of Evaluation Date of Evaluation: 12/16/16 Time of Evaluation: 07:17 - Subjective Subjective: Pt S&E at bedside. Pt resting comfortably in bed. Pt c/o insomnia, low back pain , and left shoulder weakness and pain. Shoulder xray was and unremarkable. Lumbar Xray unremarkable. Pt says this is due to a fall he had months ago. Patient did not f/u for this. Pt is taking flexeril for the back pain now which is helping. Pt has not had diarrhea overnight. Pt denies CP/SOB/AP/N/V/F/C. Objective - Vital Signs/Intake and Output Vital Signs (last 24 hours): Temp Pulse Resp BP Pulse Ox 99.0 F 80 20 106/64 97 12/16/16 04:00 12/16/16 04:00 12/16/16 04:00 12/16/16 04:00 12/16/16 04:00 Intake and Output: 12/16/16 12/16/16 06:59 18:59 Intake Total 1720 Output Total 1800 Balance -80 - Medications Medications: Current Medications Acetaminophen (Tylenol 325mg Tab) 650 mg PO Q6 PRN PRN Reason: Fever >100.4 F Last Admin: 12/14/16 19:03 Dose: 650 mg Benztropine Mesylate (Cogentin) 1 mg PO Q6 PRN PRN Reason: Other Last Admin: 12/07/16 10:00 Dose: 1 mg Clonidine HCl (Catapres) 0.1 mg PO Q8 PRN PRN Reason: COWS Score More or Equal to 5 Last Admin: 12/07/16 00:37 Dose: 0.1 mg Cyclobenzaprine HCl (Flexeril) 5 mg PO HS PRN PRN Reason: Pain, moderate (4-7) Dicyclomine HCl (Bentyl) 20 mg PO Q8 PRN PRN Reason: ABDOMINAL PAIN Last Admin: 12/13/16 18:15 Dose: 20 mg Gabapentin (Neurontin) 300 mg PO BID [facility] Last Admin: 12/15/16 18:00 Dose: 300 mg Hydroxyzine HCl (Atarax) 50 mg PO Q6H PRN PRN Reason: Anxiety Last Admin: 12/15/16 10:36 Dose: 50 mg Piperacillin Sod/Tazobactam (Sod 3.375 gm/ Sodium Chloride) 100 mls @ 200 mls/ hr IVPB Q6H [facility] Last Admin: 12/16/16 03:17 Dose: 200 mls/hr Ibuprofen (Motrin Tab) 600 mg PO Q8H PRN PRN Reason: Pain, severe (8-10) Last Admin: 12/14/16 15:02 Dose: 600 mg Levetiracetam (Keppra) 500 mg PO BID [facility] Last Admin: 12/15/16 18:00 Dose: 500 mg Ondansetron HCl (Zofran Tab) 4 mg PO Q8 PRN PRN Reason: Nausea/Vomiting Last Admin: 12/11/16 20:00 Dose: 4 mg Saccharomyces Boulardii (Florastor) 250 mg PO BID [facility] Last Admin: 12/15/16 18:00 Dose: 250 mg Sertraline HCl (Zoloft) 50 mg PO DAILY [facility] Last Admin: 12/15/16 10:34 Dose: 50 mg Trazodone HCl (Desyrel) 100 mg PO HS [facility] Last Admin: 12/15/16 22:04 Dose: 100 mg - Labs Labs: 12/16/16 06:10 12/16/16 06:10 PT 14.2 SECONDS (9.7-12.2) H 12/12/16 07:08 INR 1.3 12/12/16 07:08 APTT 32 SECONDS (21-34) 12/12/16 07:08 - Constitutional Appears: Non-toxic, No Acute Distress - Head Exam Head Exam: NORMAL INSPECTION - Eye Exam Eye Exam: EOMI - ENT Exam ENT Exam: Mucous Membranes Moist - Respiratory Exam Respiratory Exam: NORMAL BREATHING PATTERN. absent: Accessory Muscle Use, Respiratory Distress - Cardiovascular Exam Cardiovascular Exam: REGULAR RHYTHM, Murmur (JENNIFER). absent: Bradycardia, Tachycardia - GI/Abdominal Exam GI & Abdominal Exam: Soft. absent: Tenderness - Back Exam Back Exam: tenderness (lumbar spine ) - Neurological Exam Neurological Exam: Alert, Awake - Psychiatric Exam Psychiatric exam: Normal Affect, Normal Mood - Skin Skin Exam: Dry, Intact, Warm Assessment and Plan - Assessment and Plan (Free Text) Assessment: Fever * CXR 12/12 - heterogenous infiltrate at inferior Right and Mid/inferior left lung zones vs atelectasis with likely small left pleural effusion and Right central venous line terminating at the right atrium; Repeat CXR 12/13 shows right IJ central venous line with tip in the SVC after adjustment and right lower lobe opacity with improvement * Echo 12/12: Mobile density seen with high velocities across AV highly suspicious for AV endocarditis, transmitral doppler flow pattern is grade 1 ( abnormal relaxation pattern), LV and RV systolic function normal, EF = 60-65% * Blood cultures 12/12 - Gram positive cocci in chains (Strep mitis in final read ) * Urine culture 12/12 - no growth * Cont Zosyn 3.375 gm Q6H for now and d/c Vancomycin 1 gm Q12H (12/14) - ID recs (Mangia) * 12/13 Vanc trough: 6.4 * NS 70 cc/hr * Tylenol 650 mg PO Q6 prn fever. Due to history of hepatitis, consider switching to a different agent at some point. Low back pain * lumbar spine XR - No abnormalities seen * flexeril 5 mg PO QHS * f/u MRI lumbar spine Left shoulder pain/weakness * 2/2 Hx of fall * Left shoulder XR (12/13) - no acute dislocation or fracture, soft tissues unremarkable Diarrhea * Stool Culture/O&P (12/12) - negative for O&P, salmonella, shigella, and campylobacter * Stool negative for leukocytes and occult blood (12/12) * Serum C. diff antigen and toxin negative (12/12) * Stool C diff (F/U) and repeat leukocytes (Neg) History of Seizures * Continue Keppra 500 mg PO BID * Continue Gabapentin 300 mg PO BID History of Depression * Continue Zoloft 50 mg PO daily History of Hepatitis B & C * Monitor LFTs. 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 Leyva): does not recommend CASPER at this time * Positive blood culture for Strep mitis * F/U Repeated BC (12/14) - no growth x24h * Cont zosyn and d/c vanc per Dr. Trevino as stated above * Hx of IV drug use/porcine valve * CT surg consult (Dr. Peralta) - says should be followed up with surgeon who did original AV replacement * F/U Medical records from [facility] * F/U CXR Prophylactic Measure * Heparin and GI ppx held due to platelets * SCDs for now <Chichi Dc V - Last Filed: 12/21/16 17:57> Objective - Vital Signs/Intake and Output Vital Signs (last 24 hours): Temp Pulse Resp BP Pulse Ox 98.6 F 96 H 20 116/70 97 12/21/16 16:04 12/21/16 16:04 12/21/16 16:04 12/21/16 16:04 12/21/16 16:04 Intake and Output: 12/21/16 12/21/16 06:59 18:59 Intake Total 1040 100 Output Total 1400 Balance -360 100 - Medications Medications: Current Medications Acetaminophen (Tylenol 325mg Tab) 650 mg PO Q6 PRN PRN Reason: Fever >100.4 F Last Admin: 12/14/16 19:03 Dose: 650 mg Benztropine Mesylate (Cogentin) 1 mg PO Q6 PRN PRN Reason: Other Last Admin: 12/07/16 10:00 Dose: 1 mg Clonidine HCl (Catapres) 0.1 mg PO Q8 PRN PRN Reason: COWS Score More or Equal to 5 Last Admin: 12/07/16 00:37 Dose: 0.1 mg Cyclobenzaprine HCl (Flexeril) 5 mg PO TID PRN PRN Reason: Muscle spasm Last Admin: 12/21/16 17:04 Dose: 5 mg Dicyclomine HCl (Bentyl) 20 mg PO Q8 PRN PRN Reason: ABDOMINAL PAIN Last Admin: 12/13/16 18:15 Dose: 20 mg Gabapentin (Neurontin) 300 mg PO BID [facility] Last Admin: 12/21/16 17:02 Dose: 300 mg Hydroxyzine HCl (Atarax) 50 mg PO Q6H PRN PRN Reason: Anxiety Last Admin: 12/21/16 14:30 Dose: 50 mg Piperacillin Sod/Tazobactam (Sod 3.375 gm/ Sodium Chloride) 100 mls @ 200 mls/ hr IVPB Q6H [facility] Last Admin: 12/21/16 17:02 Dose: 200 mls/hr Levetiracetam (Keppra) 500 mg PO BID [facility] Last Admin: 12/21/16 17:02 Dose: 500 mg Ondansetron HCl (Zofran Tab) 4 mg PO Q8 PRN PRN Reason: Nausea/Vomiting Last Admin: 12/11/16 20:00 Dose: 4 mg Saccharomyces Boulardii (Florastor) 250 mg PO BID [facility] Sertraline HCl (Zoloft) 50 mg PO DAILY [facility] Last Admin: 12/21/16 09:24 Dose: 50 mg Trazodone HCl (Desyrel) 100 mg PO HS [facility] Last Admin: 12/20/16 22:03 Dose: 100 mg - Labs Labs: 12/21/16 07:24 12/21/16 07:24 PT 14.2 SECONDS (9.7-12.2) H 12/12/16 07:08 INR 1.3 12/12/16 07:08 APTT 32 SECONDS (21-34) 12/12/16 07:08 Attending/Attestation - Attestation I have personally seen and examined this patient.: Yes I have fully participated in the care of the patient.: Yes I have reviewed all pertinent clinical information, including history, physical exam and plan: Yes Notes (Text): This is late computer entry for 12/16/16. Patient seen, examined, and case discussed with day-time resident. Patient reports low back pain; helped with muscle relaxant; order for MRI LS with contrast r/o infection in light of endocarditis. Patient does not have neurologic deficits. Thoracic surgery recommended patient to follow-up with surgeon who performed original AV valve replacement Will need to follow-up with [facility] medical records for patient's prior hospitalization. Patient reordered for Blood cultures today Patient had reported some mild shortness of breathe at bedside but not clinically in distress and lung exam relatively benign; chest xray ordered Will continue IV abx for bactermia/endocarditis Assessment/Plan 1) Sepsis * Criteria: WBC<4; Temp: 104 F; positive blood cultures; Lactate: 1.2 on admission * Infectious Disease (Dr. Trevino) on board * Echocardiogram (12/14/16): left ventricle systolic function is normal; EF: 60- 65%, Transmital doppler flow pattern is Grade I abnormal relaxation pattern. Right ventricular systolic function is normal. Aortic valve bioprosthetic. Mobile density seen with high velocities across Aortic valve highly suspicious for aortic valve endocarditis. recommended for CASPER * Blood cultures (12/12/16): Strep mitis X2 * Blood culture (12/14/16): No growth thus far * Blood culture (12/16/16): f/u * Urine culture (12/12/16): no growth * Zosyn 3.375 gm Q6H (active since 12/12/16) * NS 70 cc/hr * Tylenol 650 mg PO Q6 prn fever. Monitor liver function tests in light of hepatitis hx * Concern for possible endocarditis 2) Endocarditis * Infectious Disease (Dr. Trevino) on board-->help appreciated * IV abx for 6 weeks * Cardiology (Dr. Leyva) f/u * Echocardiogram (12/14/16): left ventricle systolic function is normal; EF: 60- 65%, Transmital doppler flow pattern is Grade I abnormal relaxation pattern. Right ventricular systolic function is normal. Aortic valve bioprosthetic. Mobile density seen with high velocities across Aortic valve highly suspicious for aortic valve endocarditis. 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 Diff antigen and toxin: negative * Repeat Stool studies in light of IV abx use 7) History of Seizures * Continue Keppra 500 mg PO BID * Continue Gabapentin 300 mg PO BID 8) History of Depression * Continue Zoloft 50 mg PO daily 9) History of Hepatitis B & C * Monitor LFTs. Currently WNL 10) Pancytopenia * Heme-Onc (Dr. 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 On old admission growth factors like Neupogen (Filgrastim) were recommended for low WBC. * Monitor H/H and platelets 11) Prophylactic Measure * Heparin and GI ppx held due thrombocytopenia * SCDs for now
--- NOTE | 2016-12-16 09:14 | CP.PCM.PN ---
Subjective - Date & Time of Evaluation Date of Evaluation: 12/16/16 Time of Evaluation: 09:09 - Subjective Subjective: Thoracic Surg - Dr. Peralta Pt S&E. LATOYA. Pt denies any complaints. No fevers overrnight. No chest pain or SOb. Objective - Vital Signs/Intake and Output Vital Signs (last 24 hours): Temp Pulse Resp BP Pulse Ox 99.0 F 80 20 106/64 97 12/16/16 04:00 12/16/16 04:00 12/16/16 04:00 12/16/16 04:00 12/16/16 04:00 Intake and Output: 12/16/16 12/16/16 06:59 18:59 Intake Total 1720 Output Total 1800 Balance -80 - Medications Medications: Current Medications Acetaminophen (Tylenol 325mg Tab) 650 mg PO Q6 PRN PRN Reason: Fever >100.4 F Last Admin: 12/14/16 19:03 Dose: 650 mg Benztropine Mesylate (Cogentin) 1 mg PO Q6 PRN PRN Reason: Other Last Admin: 12/07/16 10:00 Dose: 1 mg Clonidine HCl (Catapres) 0.1 mg PO Q8 PRN PRN Reason: COWS Score More or Equal to 5 Last Admin: 12/07/16 00:37 Dose: 0.1 mg Cyclobenzaprine HCl (Flexeril) 5 mg PO HS PRN PRN Reason: Pain, moderate (4-7) Dicyclomine HCl (Bentyl) 20 mg PO Q8 PRN PRN Reason: ABDOMINAL PAIN Last Admin: 12/13/16 18:15 Dose: 20 mg Gabapentin (Neurontin) 300 mg PO BID [facility] Last Admin: 12/15/16 18:00 Dose: 300 mg Hydroxyzine HCl (Atarax) 50 mg PO Q6H PRN PRN Reason: Anxiety Last Admin: 12/15/16 10:36 Dose: 50 mg Piperacillin Sod/Tazobactam (Sod 3.375 gm/ Sodium Chloride) 100 mls @ 200 mls/ hr IVPB Q6H [facility] Last Admin: 12/16/16 03:17 Dose: 200 mls/hr Ibuprofen (Motrin Tab) 600 mg PO Q8H PRN PRN Reason: Pain, severe (8-10) Last Admin: 12/14/16 15:02 Dose: 600 mg Levetiracetam (Keppra) 500 mg PO BID [facility] Last Admin: 12/15/16 18:00 Dose: 500 mg Ondansetron HCl (Zofran Tab) 4 mg PO Q8 PRN PRN Reason: Nausea/Vomiting Last Admin: 12/11/16 20:00 Dose: 4 mg Saccharomyces Boulardii (Florastor) 250 mg PO BID [facility] Last Admin: 12/15/16 18:00 Dose: 250 mg Sertraline HCl (Zoloft) 50 mg PO DAILY [facility] Last Admin: 12/15/16 10:34 Dose: 50 mg Trazodone HCl (Desyrel) 100 mg PO HS [facility] Last Admin: 12/15/16 22:04 Dose: 100 mg - Labs Labs: 12/16/16 06:10 12/16/16 06:10 PT 14.2 SECONDS (9.7-12.2) H 12/12/16 07:08 INR 1.3 12/12/16 07:08 APTT 32 SECONDS (21-34) 12/12/16 07:08 - Constitutional Appears: No Acute Distress - Head Exam Head Exam: ATRAUMATIC, NORMAL INSPECTION, NORMOCEPHALIC - Respiratory Exam Respiratory Exam: NORMAL BREATHING PATTERN. absent: Respiratory Distress - Extremities Exam Extremities Exam: absent: Pedal Edema - Neurological Exam Neurological Exam: Alert, Oriented x3 - Skin Skin Exam: Dry, Intact Assessment and Plan - Assessment and Plan (Free Text) Assessment: 46M with w/ endocarditis and bioprosthetic aortic valve w/ poss. vegetation seen on echo -Recc. CASPER to further evaluate -Continue IV Abx -Care as per medical/ID -Pt will need to be transferred [place] [facility] [place] original surgeon for valve DW Dr Kathryn Bustamante PGY3
[2016-12-16] MEDS: Saccharomyces Boulardi 250 mg Cap PO SCH ×2 (10:00→18:03)
--- NOTE | 2016-12-16 14:45 | RAD ---
HISTORY: SOB COMPARISON: Chest x-ray performed 12/13/16 TECHNIQUE: Chest, one view. FINDINGS: Right-sided central venous catheter extends the cavoatrial junction. LUNGS: Mild left basilar atelectasis/ infiltrate and or small pleural effusion. No definite pneumothorax. CARDIOVASCULAR: Median sternotomy wires. Cardiomegaly. OSSEOUS STRUCTURES: Degenerative changes. VISUALIZED UPPER ABDOMEN: Unremarkable. OTHER FINDINGS: None. IMPRESSION: Right-sided central venous catheter extends to the cavoatrial junction. Mild left basilar atelectasis/infiltrate and or small pleural effusion. Median sternotomy wires. Cardiomegaly.
[2016-12-16 14:56] LABS: FECAL LEUKOCYTES NEGATIVE (NEGATIVE)
[2016-12-16 17:33] LABS: C DIFF TOXIN A B NEGATIVE (NEGATIVE)
--- NOTE | 2016-12-16 18:38 | CP.PCM.PN ---
Subjective - Date & Time of Evaluation Date of Evaluation: 12/16/16 Time of Evaluation: 17:00 - Subjective Subjective: No complaints Objective - Vital Signs/Intake and Output Vital Signs (last 24 hours): Temp Pulse Resp BP Pulse Ox 98.9 F 95 H 20 121/80 96 12/16/16 15:26 12/16/16 15:26 12/16/16 15:26 12/16/16 15:26 12/16/16 15:26 Intake and Output: 12/16/16 12/16/16 06:59 18:59 Intake Total 1720 300 Output Total 1800 Balance -80 300 - Medications Medications: Current Medications Acetaminophen (Tylenol 325mg Tab) 650 mg PO Q6 PRN PRN Reason: Fever >100.4 F Last Admin: 12/14/16 19:03 Dose: 650 mg Benztropine Mesylate (Cogentin) 1 mg PO Q6 PRN PRN Reason: Other Last Admin: 12/07/16 10:00 Dose: 1 mg Clonidine HCl (Catapres) 0.1 mg PO Q8 PRN PRN Reason: COWS Score More or Equal to 5 Last Admin: 12/07/16 00:37 Dose: 0.1 mg Cyclobenzaprine HCl (Flexeril) 5 mg PO HS PRN PRN Reason: Pain, moderate (4-7) Last Admin: 12/16/16 13:45 Dose: 5 mg Dicyclomine HCl (Bentyl) 20 mg PO Q8 PRN PRN Reason: ABDOMINAL PAIN Last Admin: 12/13/16 18:15 Dose: 20 mg Gabapentin (Neurontin) 300 mg PO BID [facility] Last Admin: 12/16/16 18:03 Dose: 300 mg Hydroxyzine HCl (Atarax) 50 mg PO Q6H PRN PRN Reason: Anxiety Last Admin: 12/15/16 10:36 Dose: 50 mg Piperacillin Sod/Tazobactam (Sod 3.375 gm/ Sodium Chloride) 100 mls @ 200 mls/ hr IVPB Q6H [facility] Last Admin: 12/16/16 10:00 Dose: 200 mls/hr Ibuprofen (Motrin Tab) 600 mg PO Q8H PRN PRN Reason: Pain, severe (8-10) Last Admin: 12/14/16 15:02 Dose: 600 mg Levetiracetam (Keppra) 500 mg PO BID [facility] Last Admin: 12/16/16 18:03 Dose: 500 mg Ondansetron HCl (Zofran Tab) 4 mg PO Q8 PRN PRN Reason: Nausea/Vomiting Last Admin: 12/11/16 20:00 Dose: 4 mg Saccharomyces Boulardii (Florastor) 250 mg PO BID [facility] Last Admin: 12/16/16 18:03 Dose: 250 mg Sertraline HCl (Zoloft) 50 mg PO DAILY [facility] Last Admin: 12/16/16 10:00 Dose: 50 mg Trazodone HCl (Desyrel) 100 mg PO HS [facility] Last Admin: 12/15/16 22:04 Dose: 100 mg - Labs Labs: 12/16/16 06:10 12/16/16 06:10 PT 14.2 SECONDS (9.7-12.2) H 12/12/16 07:08 INR 1.3 12/12/16 07:08 APTT 32 SECONDS (21-34) 12/12/16 07:08 - Head Exam Head Exam: ATRAUMATIC - Eye Exam Eye Exam: Normal appearance - ENT Exam ENT Exam: Mucous Membranes Dry - Respiratory Exam Respiratory Exam: NORMAL BREATHING PATTERN - Cardiovascular Exam Cardiovascular Exam: +S1, +S2 - GI/Abdominal Exam GI & Abdominal Exam: Normal Bowel Sounds Assessment and Plan (1) Pancytopenia Assessment & Plan: multifactorial, HIV, sepsis, liver diseases with splenic sequestration borderline iron stores; recommend against IV iron supplementation until infection resolves transfusion support PRN Status: Acute
--- NOTE | 2016-12-16 19:19 | CP.PCM.PN ---
Subjective - Date & Time of Evaluation Date of Evaluation: 12/16/16 Time of Evaluation: 08:00 - Subjective Subjective: EVENTS NOTED DR PAZ ON BOARD CONT IV RX FOR 6 WEEKS Objective - Vital Signs/Intake and Output Vital Signs (last 24 hours): Temp Pulse Resp BP Pulse Ox 98.9 F 95 H 20 121/80 96 12/16/16 15:26 12/16/16 15:26 12/16/16 15:26 12/16/16 15:26 12/16/16 15:26 Intake and Output: 12/16/16 12/17/16 18:59 06:59 Intake Total 300 Balance 300 - Medications Medications: Current Medications Acetaminophen (Tylenol 325mg Tab) 650 mg PO Q6 PRN PRN Reason: Fever >100.4 F Last Admin: 12/14/16 19:03 Dose: 650 mg Benztropine Mesylate (Cogentin) 1 mg PO Q6 PRN PRN Reason: Other Last Admin: 12/07/16 10:00 Dose: 1 mg Clonidine HCl (Catapres) 0.1 mg PO Q8 PRN PRN Reason: COWS Score More or Equal to 5 Last Admin: 12/07/16 00:37 Dose: 0.1 mg Cyclobenzaprine HCl (Flexeril) 5 mg PO HS PRN PRN Reason: Pain, moderate (4-7) Last Admin: 12/16/16 13:45 Dose: 5 mg Dicyclomine HCl (Bentyl) 20 mg PO Q8 PRN PRN Reason: ABDOMINAL PAIN Last Admin: 12/13/16 18:15 Dose: 20 mg Gabapentin (Neurontin) 300 mg PO BID [facility] Last Admin: 12/16/16 18:03 Dose: 300 mg Hydroxyzine HCl (Atarax) 50 mg PO Q6H PRN PRN Reason: Anxiety Last Admin: 12/15/16 10:36 Dose: 50 mg Piperacillin Sod/Tazobactam (Sod 3.375 gm/ Sodium Chloride) 100 mls @ 200 mls/ hr IVPB Q6H [facility] Last Admin: 12/16/16 16:10 Dose: Not Given Ibuprofen (Motrin Tab) 600 mg PO Q8H PRN PRN Reason: Pain, severe (8-10) Last Admin: 12/14/16 15:02 Dose: 600 mg Levetiracetam (Keppra) 500 mg PO BID [facility] Last Admin: 12/16/16 18:03 Dose: 500 mg Ondansetron HCl (Zofran Tab) 4 mg PO Q8 PRN PRN Reason: Nausea/Vomiting Last Admin: 12/11/16 20:00 Dose: 4 mg Saccharomyces Boulardii (Florastor) 250 mg PO BID [facility] Last Admin: 12/16/16 18:03 Dose: 250 mg Sertraline HCl (Zoloft) 50 mg PO DAILY [facility] Last Admin: 12/16/16 10:00 Dose: 50 mg Trazodone HCl (Desyrel) 100 mg PO HS [facility] Last Admin: 12/15/16 22:04 Dose: 100 mg - Labs Labs: 12/16/16 06:10 12/16/16 06:10 PT 14.2 SECONDS (9.7-12.2) H 12/12/16 07:08 INR 1.3 12/12/16 07:08 APTT 32 SECONDS (21-34) 12/12/16 07:08 - Constitutional Appears: Non-toxic, Cachectic - Head Exam Head Exam: NORMOCEPHALIC - Eye Exam Eye Exam: absent: Scleral icterus - ENT Exam ENT Exam: Mucous Membranes Dry - Neck Exam Neck Exam: absent: Lymphadenopathy - Respiratory Exam Respiratory Exam: Decreased Breath Sounds - Cardiovascular Exam Cardiovascular Exam: REGULAR RHYTHM - GI/Abdominal Exam GI & Abdominal Exam: Distended, Soft - Rectal Exam Rectal Exam: Deferred Assessment and Plan (1) Schizoaffective disorder Status: Acute (2) Alcohol abuse Status: Acute (3) Bipolar 1 disorder, depressed Status: Acute (4) Leucopenia Status: Acute (5) Pancytopenia Status: Acute (6) S/P aortic valve replacement Status: Acute
[2016-12-17] MEDS: Piperacillin/Tazobact 3.375 GM in Sodium Chloride 100 ML IVPB SCH ×4 (03:05→22:47)
[2016-12-17 06:24] LABS: BASO % 0.4 % (0.0-2.0); EOS % 0.7 % (0.0-4.0); HEMATOCRIT 26.8 % (35.0-51.0); LYMPH # 0.6 K/uL (1.0-4.3); LYMPH % 15.8 % (20.0-40.0); MEAN CELL VOLUME 76.9 fL (80.0-94.0); MEAN CORPUSCULAR HEMOGLOBIN 25.8 pg (27.0-31.0); MEAN CORPUSCULAR HGB CONC 33.6 g/dL (33.0-37.0); MEAN PLATELET VOLUME 8.3 fL (7.2-11.7); MONO # 0.3 K/uL (0.0-0.8); MONO % 6.8 % (0.0-10.0); RED CELL DISTRIBUTION WIDTH 15.2 % (11.5-14.5); WHITE BLOOD COUNT 3.8 K/uL (4.8-10.8)
[2016-12-17 06:35] LABS: ALB/GLOB RATIO 0.8 (1.0-2.1); ALKALINE PHOSPHATASE 61 U/L (38-126); ALT/SGPT 29 U/L (21-72); AST/SGOT 20 U/L (17-59); BILIRUBIN,TOTAL 0.4 mg/dL (0.2-1.3); BLOOD UREA NITROGEN 17 mg/dL (9-20); CALCIUM 8.2 mg/dl (8.6-10.4); CARBON DIOXIDE 24 mmol/L (22-30); CHLORIDE 108 mmol/L (98-107); GFR AFRICAN-AMERICAN > 60; GLUCOSE,RANDOM 92 mg/dL (75-110); MAGNESIUM 1.9 mg/dL (1.6-2.3); PHOSPHOROUS 3.4 mg/dL (2.5-4.5); POTASSIUM 3.7 mmol/L (3.6-5.2); SODIUM 140 mmol/L (132-148); TOTAL PROTEIN 5.5 g/dL (6.3-8.3)
[2016-12-17] MEDS ORDERED: Gadodiamide 287 MG/ML VIAL (15ML) IV ONE (11:06)
[2016-12-17] MEDS: Saccharomyces Boulardi 250 mg Cap PO SCH ×2 (11:46→17:33)
--- NOTE | 2016-12-17 12:35 | MRI ---
PROCEDURE: MR LUMBAR SPINE WITH AND WITHOUT CONTRAST HISTORY: Endocarditis COMPARISON: Plain radiographs from 12/14/2016. TECHNIQUE: Multiecho multiplanar sequences were performed through the lumbar spine with and without the use of intravenous contrast. 13 cc Omniscan was injected intravenously. FINDINGS: There is normal alignment of the lumbar vertebral bodies. Lumbar lordosis is maintained. . Vertebral bodies are normal in height. There is no acute fracture, bone destruction, spondylolysis or spondylolisthesis. There is no abnormal enhancement on post-contrast images. Bone marrow signal is within normal limits. The conus medullaris terminates at a normal level and the nerve roots of cauda equina are normal. There is no abnormal intramedullary or leptomeningeal enhancement. The paraspinous soft tissues are normal. Imaged portion of the retroperitoneum is within normal limits. Note is made of an enlarged spleen with perisplenic and splenorenal varices. There is mild multilevel degenerative disc disease with Schmorl's nodes at T11 and T12. T12-L1: No disc herniation, spinal canal stenosis or neural foraminal narrowing. L1-2: No disc herniation, spinal canal stenosis or neural foraminal narrowing. L2-3: No disc herniation, spinal canal stenosis or neural foraminal narrowing. L3-4: No disc herniation, spinal canal stenosis or neural foraminal narrowing. L4-5: Posterior disc bulge with superimposed small right foraminal disc protrusion. No central spinal canal stenosis. Mild bilateral facet arthropathy contributes to mild right neural foraminal stenosis. L5-S1: No disc herniation, spinal canal stenosis or neural foraminal narrowing. OTHER FINDINGS: None. IMPRESSION: 1. No acute fracture, spondylolysis or spondylolisthesis. No evidence of discitis/osteomyelitis. 2. Mild degenerative disc disease at L4-5 with a posterior disc bulge and superimposed right foraminal disc protrusion. Mild right neural foraminal stenosis. No central spinal canal stenosis. 3. Note is made of splenomegaly, perisplenic and splenorenal arises in this patient with known hepatic cirrhosis.
--- NOTE | 2016-12-17 15:35 | CP.PCM.PN ---
<Eliana Stewart - Last Filed: 12/17/16 17:10> Subjective - Date & Time of Evaluation Date of Evaluation: 12/17/16 Time of Evaluation: 15:35 - Subjective Subjective: Pt seen and examined at bedside. Patient doing well with no new complaints at this time. Patient still having some diarrhea but says his back pain is getting better. Pt denies cp/sob/fever/chills/n/v/abdominal pain. Objective - Vital Signs/Intake and Output Vital Signs (last 24 hours): Temp Pulse Resp BP Pulse Ox 97.3 F L 76 20 107/76 97 12/17/16 07:00 12/17/16 07:00 12/17/16 07:00 12/17/16 07:00 12/17/16 07:00 Intake and Output: 12/17/16 12/17/16 06:59 18:59 Intake Total 640 Output Total 950 Balance -310 - Medications Medications: Current Medications Acetaminophen (Tylenol 325mg Tab) 650 mg PO Q6 PRN PRN Reason: Fever >100.4 F Last Admin: 12/14/16 19:03 Dose: 650 mg Benztropine Mesylate (Cogentin) 1 mg PO Q6 PRN PRN Reason: Other Last Admin: 12/07/16 10:00 Dose: 1 mg Clonidine HCl (Catapres) 0.1 mg PO Q8 PRN PRN Reason: COWS Score More or Equal to 5 Last Admin: 12/07/16 00:37 Dose: 0.1 mg Cyclobenzaprine HCl (Flexeril) 5 mg PO HS PRN PRN Reason: Pain, moderate (4-7) Last Admin: 12/16/16 21:56 Dose: 5 mg Dicyclomine HCl (Bentyl) 20 mg PO Q8 PRN PRN Reason: ABDOMINAL PAIN Last Admin: 12/13/16 18:15 Dose: 20 mg Gabapentin (Neurontin) 300 mg PO BID [facility] Last Admin: 12/17/16 11:46 Dose: 300 mg Hydroxyzine HCl (Atarax) 50 mg PO Q6H PRN PRN Reason: Anxiety Last Admin: 12/17/16 11:54 Dose: 50 mg Piperacillin Sod/Tazobactam (Sod 3.375 gm/ Sodium Chloride) 100 mls @ 200 mls/ hr IVPB Q6H [facility] Last Admin: 12/17/16 11:55 Dose: 200 mls/hr Ibuprofen (Motrin Tab) 600 mg PO Q8H PRN PRN Reason: Pain, severe (8-10) Last Admin: 12/16/16 21:56 Dose: 600 mg Levetiracetam (Keppra) 500 mg PO BID [facility] Last Admin: 12/17/16 11:46 Dose: 500 mg Ondansetron HCl (Zofran Tab) 4 mg PO Q8 PRN PRN Reason: Nausea/Vomiting Last Admin: 12/11/16 20:00 Dose: 4 mg Saccharomyces Boulardii (Florastor) 250 mg PO BID [facility] Last Admin: 12/17/16 11:46 Dose: 250 mg Sertraline HCl (Zoloft) 50 mg PO DAILY [facility] Last Admin: 12/17/16 11:46 Dose: 50 mg Trazodone HCl (Desyrel) 100 mg PO HS [facility] Last Admin: 12/16/16 21:55 Dose: 100 mg - Labs Labs: 12/17/16 06:11 12/17/16 06:11 PT 14.2 SECONDS (9.7-12.2) H 12/12/16 07:08 INR 1.3 12/12/16 07:08 APTT 32 SECONDS (21-34) 12/12/16 07:08 - Constitutional Appears: Non-toxic, No Acute Distress - Head Exam Head Exam: NORMAL INSPECTION - Eye Exam Eye Exam: EOMI - ENT Exam ENT Exam: Mucous Membranes Moist - Respiratory Exam Respiratory Exam: Clear to Ausculation Bilateral, NORMAL BREATHING PATTERN - Cardiovascular Exam Cardiovascular Exam: REGULAR RHYTHM, Murmur (JENNIFER). absent: Bradycardia, Tachycardia - GI/Abdominal Exam GI & Abdominal Exam: Soft, Normal Bowel Sounds. absent: Distended, Tenderness - Extremities Exam Extremities Exam: Normal Inspection - Back Exam Back Exam: NORMAL INSPECTION, tenderness (mild, low back) - Neurological Exam Neurological Exam: Alert, Awake - Psychiatric Exam Psychiatric exam: Normal Affect, Normal Mood - Skin Skin Exam: Dry, Intact, Warm Assessment and Plan - Assessment and Plan (Free Text) Assessment: Fever * CXR 12/12 - heterogenous infiltrate at inferior Right and Mid/inferior left lung zones vs atelectasis with likely small left pleural effusion and Right central venous line terminating at the right atrium; Repeat CXR 12/13 shows right IJ central venous line with tip in the SVC after adjustment and right lower lobe opacity with improvement * Echo 12/12: Mobile density seen with high velocities across AV highly suspicious for AV endocarditis, transmitral doppler flow pattern is grade 1 ( abnormal relaxation pattern), LV and RV systolic function normal, EF = 60-65% * Blood cultures 12/12 - Gram positive cocci in chains (Strep mitis in final read ) * Urine culture 12/12 - no growth * Cont Zosyn 3.375 gm Q6H for now and d/c Vancomycin 1 gm Q12H (12/14) - ID recs (Mangia) * 12/13 Vanc trough: 6.4 * NS 70 cc/hr * Tylenol 650 mg PO Q6 prn fever. Due to history of hepatitis, consider switching to a different agent at some point. Low back pain * lumbar spine XR - No abnormalities seen * flexeril 5 mg PO QHS * MRI lumbar spine - No acute fracture, spondylolysis or spondylolisthesis. No evidence of discitis/osteomyelitis. Mild degenerative disc disease at L4-5 with a posterior disc bulge and superimposed right foraminal disc protrusion. Mild right neural foraminal stenosis. No central spinal canal stenosis. Note is made of splenomegaly, perisplenic and splenorenal arises in this patient with known hepatic cirrhosis. Left shoulder pain/weakness * 2/2 Hx of fall * Left shoulder XR (12/13) - no acute dislocation or fracture, soft tissues unremarkable Diarrhea * Stool Culture/O&P (12/12) - negative for O&P, salmonella, shigella, and campylobacter * Stool negative for leukocytes and occult blood (12/12) * Serum C. diff antigen and toxin negative (12/12) * Stool C diff (Neg) and repeat leukocytes (Neg) History of Seizures * Continue Keppra 500 mg PO BID * Continue Gabapentin 300 mg PO BID History of Depression * Continue Zoloft 50 mg PO daily History of Hepatitis B & C * Monitor LFTs. 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 Leyva): does not recommend CASPER at this time * Positive blood culture for Strep mitis * F/U Repeated BC (12/14) - no growth x24h * Cont zosyn and d/c vanc per Dr. Trevino as stated above * Hx of IV drug use/porcine valve * CT surg consult (Dr. Peralta) - says should be followed up with surgeon who did original AV replacement * F/U Medical records from [facility] [place] - call original surgeon for AV valve replacement and see if he would like to accept the patient at [facility] * CXR: Right-sided central venous catheter extends to the cavoatrial junction. Mild left basilar atelectasis/infiltrate and or small pleural effusion. Median sternotomy wires. Cardiomegaly. Prophylactic Measure * Heparin and GI ppx held due to platelets * SCDs for now <Chichi Dc V - Last Filed: 12/21/16 18:56> Objective - Vital Signs/Intake and Output Vital Signs (last 24 hours): Temp Pulse Resp BP Pulse Ox 98.6 F 96 H 20 116/70 97 12/21/16 16:04 12/21/16 16:04 12/21/16 16:04 12/21/16 16:04 12/21/16 16:04 Intake and Output: 12/21/16 12/21/16 06:59 18:59 Intake Total 1040 100 Output Total 1400 Balance -360 100 - Medications Medications: Current Medications Acetaminophen (Tylenol 325mg Tab) 650 mg PO Q6 PRN PRN Reason: Fever >100.4 F Last Admin: 12/14/16 19:03 Dose: 650 mg Benztropine Mesylate (Cogentin) 1 mg PO Q6 PRN PRN Reason: Other Last Admin: 12/07/16 10:00 Dose: 1 mg Clonidine HCl (Catapres) 0.1 mg PO Q8 PRN PRN Reason: COWS Score More or Equal to 5 Last Admin: 12/07/16 00:37 Dose: 0.1 mg Cyclobenzaprine HCl (Flexeril) 5 mg PO TID PRN PRN Reason: Muscle spasm Last Admin: 12/21/16 17:04 Dose: 5 mg Dicyclomine HCl (Bentyl) 20 mg PO Q8 PRN PRN Reason: ABDOMINAL PAIN Last Admin: 12/13/16 18:15 Dose: 20 mg Gabapentin (Neurontin) 300 mg PO BID [facility] Last Admin: 12/21/16 17:02 Dose: 300 mg Hydroxyzine HCl (Atarax) 50 mg PO Q6H PRN PRN Reason: Anxiety Last Admin: 12/21/16 14:30 Dose: 50 mg Piperacillin Sod/Tazobactam (Sod 3.375 gm/ Sodium Chloride) 100 mls @ 200 mls/ hr IVPB Q6H [facility] Last Admin: 12/21/16 17:02 Dose: 200 mls/hr Levetiracetam (Keppra) 500 mg PO BID [facility] Last Admin: 12/21/16 17:02 Dose: 500 mg Ondansetron HCl (Zofran Tab) 4 mg PO Q8 PRN PRN Reason: Nausea/Vomiting Last Admin: 12/11/16 20:00 Dose: 4 mg Saccharomyces Boulardii (Florastor) 250 mg PO BID [facility] Sertraline HCl (Zoloft) 50 mg PO DAILY [facility] Last Admin: 12/21/16 09:24 Dose: 50 mg Trazodone HCl (Desyrel) 100 mg PO HS [facility] Last Admin: 12/20/16 22:03 Dose: 100 mg - Labs Labs: 12/21/16 07:24 12/21/16 07:24 PT 14.2 SECONDS (9.7-12.2) H 12/12/16 07:08 INR 1.3 12/12/16 07:08 APTT 32 SECONDS (21-34) 12/12/16 07:08 Attending/Attestation - Attestation I have personally seen and examined this patient.: Yes I have fully participated in the care of the patient.: Yes I have reviewed all pertinent clinical information, including history, physical exam and plan: Yes Notes (Text): This is late computer entry for 12/17/16. Patient seen, examined, and case discussed with day-time resident. Repeat blood cultures remain negative; patient to continue IV abx for 6 weeks. Will f/u Interventional Radiology for possible FNA lung biopsy--Resident called ; awaiting call back Discussed with neurology (Dr. Juan)-->does not recommend LP secondary lack of neurologic deficits Pending medical records from [facility] in regards to patient's prior hx of endocarditis Assessment/Plan 1) Sepsis * Criteria: WBC<4; Temp: 104 F; positive blood cultures; Lactate: 1.2 on admission * Infectious Disease (Dr. Trevino) on board * Echocardiogram (12/14/16): left ventricle systolic function is normal; EF: 60- 65%, Transmital doppler flow pattern is Grade I abnormal relaxation pattern. Right ventricular systolic function is normal. Aortic valve bioprosthetic. Mobile density seen with high velocities across Aortic valve highly suspicious for aortic valve endocarditis. recommended for CASPER * Blood cultures (12/12/16): Strep mitis X2 * Blood culture (12/14/16): No growth thus far * Blood culture (12/16/16): * Urine culture (12/12/16): no growth * Zosyn 3.375 gm Q6H (active since 12/12/16) * NS 70 cc/hr * Tylenol 650 mg PO Q6 prn fever. Monitor liver function tests in light of hepatitis hx * Concern for possible endocarditis 2) Endocarditis * Infectious Disease (Dr. Trevino) on board-->help appreciated * IV abx for 6 weeks * Cardiology (Dr. Leyva)-->no CASPER; patient has endocarditis * Echocardiogram (12/14/16): left ventricle systolic function is normal; EF: 60- 65%, Transmital doppler flow pattern is Grade I abnormal relaxation pattern. Right ventricular systolic function is normal. Aortic valve bioprosthetic. Mobile density seen with high velocities across Aortic valve highly suspicious for aortic valve endocarditis. recommended for CASPER * IV Abx: Zosyn 3.375 gm Q6H (active since 12/12/16) and Vancomycin discontinued * Blood cultures (12/12/16): Strep mitis X2 * Blood cultures (12/14/16): pending * Risk factors: +murmur, IV drug use (2 major in Daily's Criteria) * Chest Xray (12/16/16): CXR: Right-sided central venous catheter extends to the cavoatrial junction. Mild left basilar atelectasis/infiltrate and or small pleural effusion. Median sternotomy wires. Cardiomegaly. 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 Mild degenerative disc disease at L4-5 with a posterior disc bulge and superimposed right foraminal disc protrusion. Mild right neural foraminal stenosis. No central spinal canal stenosis. Note is made of splenomegaly, perisplenic and splenorenal arises in this patient with known hepatic cirrhosis. * Flexeril 5mg POqHS 6) Diarrhea * Stool culture/O&P (12/12): negative for O&P, salmonella, shigella, and campylobacter * Stool negative for leukocytes and occult blood * Serum C. Diff antigen and toxin: negative * f/u Repeat Stool studies in light of IV abx use 7) History of Seizures * Continue Keppra 500 mg PO BID * Continue Gabapentin 300 mg PO BID 8) History of Depression * Continue Zoloft 50 mg PO daily 9) History of Hepatitis B & C * Monitor LFTs. Currently WNL 10) Pancytopenia * Heme-Onc (Dr. 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 On old admission growth factors like Neupogen (Filgrastim) were recommended for low WBC. * Monitor H/H and platelets 11) Prophylactic Measure * Heparin and GI ppx held due thrombocytopenia * SCDs for now
--- NOTE | 2016-12-17 18:32 | CP.PCM.PN ---
Subjective - Date & Time of Evaluation Date of Evaluation: 12/17/16 Time of Evaluation: 10:00 - Subjective Subjective: DICUSSED ON ROUNDS WITH DR FISCHER IV RX IN PROGRESS Objective - Vital Signs/Intake and Output Vital Signs (last 24 hours): Temp Pulse Resp BP Pulse Ox 98 F 83 20 132/78 96 12/17/16 15:27 12/17/16 15:27 12/17/16 15:27 12/17/16 15:27 12/17/16 15:27 Intake and Output: 12/17/16 12/17/16 06:59 18:59 Intake Total 640 600 Output Total 950 Balance -310 600 - Medications Medications: Current Medications Acetaminophen (Tylenol 325mg Tab) 650 mg PO Q6 PRN PRN Reason: Fever >100.4 F Last Admin: 12/14/16 19:03 Dose: 650 mg Benztropine Mesylate (Cogentin) 1 mg PO Q6 PRN PRN Reason: Other Last Admin: 12/07/16 10:00 Dose: 1 mg Clonidine HCl (Catapres) 0.1 mg PO Q8 PRN PRN Reason: COWS Score More or Equal to 5 Last Admin: 12/07/16 00:37 Dose: 0.1 mg Cyclobenzaprine HCl (Flexeril) 5 mg PO HS PRN PRN Reason: Pain, moderate (4-7) Last Admin: 12/16/16 21:56 Dose: 5 mg Dicyclomine HCl (Bentyl) 20 mg PO Q8 PRN PRN Reason: ABDOMINAL PAIN Last Admin: 12/13/16 18:15 Dose: 20 mg Gabapentin (Neurontin) 300 mg PO BID [facility] Last Admin: 12/17/16 17:33 Dose: 300 mg Hydroxyzine HCl (Atarax) 50 mg PO Q6H PRN PRN Reason: Anxiety Last Admin: 12/17/16 11:54 Dose: 50 mg Piperacillin Sod/Tazobactam (Sod 3.375 gm/ Sodium Chloride) 100 mls @ 200 mls/ hr IVPB Q6H [facility] Last Admin: 12/17/16 17:32 Dose: 200 mls/hr Ibuprofen (Motrin Tab) 600 mg PO Q8H PRN PRN Reason: Pain, severe (8-10) Last Admin: 12/17/16 17:42 Dose: 600 mg Levetiracetam (Keppra) 500 mg PO BID [facility] Last Admin: 12/17/16 17:33 Dose: 500 mg Ondansetron HCl (Zofran Tab) 4 mg PO Q8 PRN PRN Reason: Nausea/Vomiting Last Admin: 12/11/16 20:00 Dose: 4 mg Saccharomyces Boulardii (Florastor) 250 mg PO BID [facility] Last Admin: 12/17/16 17:33 Dose: 250 mg Sertraline HCl (Zoloft) 50 mg PO DAILY [facility] Last Admin: 12/17/16 11:46 Dose: 50 mg Trazodone HCl (Desyrel) 100 mg PO HS [facility] Last Admin: 12/16/16 21:55 Dose: 100 mg - Labs Labs: 12/17/16 06:11 12/17/16 06:11 PT 14.2 SECONDS (9.7-12.2) H 12/12/16 07:08 INR 1.3 12/12/16 07:08 APTT 32 SECONDS (21-34) 12/12/16 07:08 - Constitutional Appears: Non-toxic, Cachectic - Head Exam Head Exam: NORMOCEPHALIC - Eye Exam Eye Exam: PERRL - ENT Exam ENT Exam: Mucous Membranes Dry - Neck Exam Neck Exam: absent: Lymphadenopathy - Respiratory Exam Respiratory Exam: Decreased Breath Sounds - Cardiovascular Exam Cardiovascular Exam: REGULAR RHYTHM - GI/Abdominal Exam GI & Abdominal Exam: Distended Assessment and Plan (1) Schizoaffective disorder Status: Acute (2) Alcohol abuse Status: Acute (3) Bipolar 1 disorder, depressed Status: Acute (4) Leucopenia Status: Acute (5) Pancytopenia Status: Acute (6) S/P aortic valve replacement Status: Acute
[2016-12-18] MEDS ORDERED: DiphenhydrAMINE 12.5 mg/5 ml LIQ UD (5 ml) PO STA (01:13)
[2016-12-18] MEDS: Piperacillin/Tazobact 3.375 GM in Sodium Chloride 100 ML IVPB SCH ×4 (03:17→21:49)
[2016-12-18 06:28] LABS: BASO % 0.2 % (0.0-2.0); EOS % 0.6 % (0.0-4.0); LYMPH # 0.5 K/uL (1.0-4.3); LYMPH % 12.4 % (20.0-40.0); MEAN CORPUSCULAR HEMOGLOBIN 25.7 pg (27.0-31.0); MEAN CORPUSCULAR HGB CONC 33.4 g/dL (33.0-37.0); MEAN PLATELET VOLUME 8.1 fL (7.2-11.7); MONO # 0.2 K/uL (0.0-0.8); MONO % 5.5 % (0.0-10.0); RED CELL DISTRIBUTION WIDTH 15.6 % (11.5-14.5)
[2016-12-18 06:55] LABS: ALB/GLOB RATIO 0.9 (1.0-2.1); ALKALINE PHOSPHATASE 55 U/L (38-126); ALT/SGPT 28 U/L (21-72); AST/SGOT 26 U/L (17-59); BILIRUBIN,TOTAL 0.4 mg/dL (0.2-1.3); BLOOD UREA NITROGEN 16 mg/dL (9-20); CALCIUM 8.6 mg/dl (8.6-10.4); CARBON DIOXIDE 23 mmol/L (22-30); CHLORIDE 106 mmol/L (98-107); GFR AFRICAN-AMERICAN > 60; GLUCOSE,RANDOM 94 mg/dL (75-110); MAGNESIUM 1.7 mg/dL (1.6-2.3); PHOSPHOROUS 3.6 mg/dL (2.5-4.5); SODIUM 139 mmol/L (132-148); TOTAL PROTEIN 5.7 g/dL (6.3-8.3)
[2016-12-18] MEDS: Saccharomyces Boulardi 250 mg Cap PO SCH ×2 (10:05→17:37)
--- NOTE | 2016-12-18 16:32 | CP.PCM.PN ---
<Eliana Caraballo DO - Last Filed: 12/18/16 16:32> Subjective - Date & Time of Evaluation Date of Evaluation: 12/18/16 Time of Evaluation: 10:00 - Subjective Subjective: Medicine progress note for Dr. Dc Patient seen and examined. Patient complaining of back pain and requesting more flexeril. Patient's records released from [facility] from last [place] in September 2016. Will need to obtain March admission records. Objective - Vital Signs/Intake and Output Vital Signs (last 24 hours): Temp Pulse Resp BP Pulse Ox 98.2 F 85 18 113/68 97 12/18/16 15:35 12/18/16 15:35 12/18/16 15:35 12/18/16 15:35 12/18/16 15:35 Intake and Output: 12/18/16 12/18/16 06:59 18:59 Intake Total 600 Output Total 500 100 Balance 100 -100 - Medications Medications: Current Medications Acetaminophen (Tylenol 325mg Tab) 650 mg PO Q6 PRN PRN Reason: Fever >100.4 F Last Admin: 12/14/16 19:03 Dose: 650 mg Benztropine Mesylate (Cogentin) 1 mg PO Q6 PRN PRN Reason: Other Last Admin: 12/07/16 10:00 Dose: 1 mg Clonidine HCl (Catapres) 0.1 mg PO Q8 PRN PRN Reason: COWS Score More or Equal to 5 Last Admin: 12/07/16 00:37 Dose: 0.1 mg Cyclobenzaprine HCl (Flexeril) 5 mg PO TID PRN PRN Reason: Muscle spasm Last Admin: 12/18/16 14:51 Dose: 5 mg Dicyclomine HCl (Bentyl) 20 mg PO Q8 PRN PRN Reason: ABDOMINAL PAIN Last Admin: 12/13/16 18:15 Dose: 20 mg Gabapentin (Neurontin) 300 mg PO BID [facility] Last Admin: 12/18/16 10:05 Dose: 300 mg Piperacillin Sod/Tazobactam (Sod 3.375 gm/ Sodium Chloride) 100 mls @ 200 mls/ hr IVPB Q6H [facility] Last Admin: 12/18/16 10:05 Dose: 200 mls/hr Levetiracetam (Keppra) 500 mg PO BID [facility] Last Admin: 12/18/16 10:05 Dose: 500 mg Ondansetron HCl (Zofran Tab) 4 mg PO Q8 PRN PRN Reason: Nausea/Vomiting Last Admin: 12/11/16 20:00 Dose: 4 mg Saccharomyces Boulardii (Florastor) 250 mg PO BID [facility] Last Admin: 12/18/16 10:05 Dose: 250 mg Sertraline HCl (Zoloft) 50 mg PO DAILY [facility] Last Admin: 12/18/16 10:05 Dose: 50 mg Trazodone HCl (Desyrel) 100 mg PO HS [facility] Last Admin: 12/17/16 22:48 Dose: 100 mg - Labs Labs: 12/18/16 06:22 12/18/16 06:22 PT 14.2 SECONDS (9.7-12.2) H 12/12/16 07:08 INR 1.3 12/12/16 07:08 APTT 32 SECONDS (21-34) 12/12/16 07:08 - Constitutional Appears: Non-toxic, No Acute Distress - Head Exam Head Exam: ATRAUMATIC, NORMOCEPHALIC - Eye Exam Eye Exam: EOMI - ENT Exam ENT Exam: Mucous Membranes Moist - Neck Exam Additional comments: Right IJ central line - Respiratory Exam Respiratory Exam: Clear to Ausculation Bilateral, NORMAL BREATHING PATTERN. absent: Respiratory Distress - Cardiovascular Exam Cardiovascular Exam: +S1, +S2, Murmur (prosthetic valve click) - GI/Abdominal Exam GI & Abdominal Exam: Soft, Normal Bowel Sounds. absent: Tenderness - Extremities Exam Extremities Exam: Normal Inspection. absent: Pedal Edema - Neurological Exam Neurological Exam: Alert, Awake - Psychiatric Exam Psychiatric exam: Normal Affect - Skin Skin Exam: Dry, Warm Assessment and Plan - Assessment and Plan (Free Text) Assessment: Bacteremia * CXR 12/12 - heterogenous infiltrate at inferior Right and Mid/inferior left lung zones vs atelectasis with likely small left pleural effusion and Right central venous line terminating at the right atrium; Repeat CXR 12/13 shows right IJ central venous line with tip in the SVC after adjustment and right lower lobe opacity with improvement * Echo 12/12: Mobile density seen with high velocities across AV highly suspicious for AV endocarditis, transmitral doppler flow pattern is grade 1 ( abnormal relaxation pattern), LV and RV systolic function normal, EF = 60-65% * Blood cultures 12/12 - Gram positive cocci in chains (Strep mitis in final read ) * Urine culture 12/12 - no growth * Cont Zosyn 3.375 gm Q6H for now and d/c Vancomycin 1 gm Q12H (12/14) - ID recs ([facility]angia) * 12/13 Vanc trough: 6.4 * NS 70 cc/hr * Tylenol 650 mg PO Q6 prn fever. Due to history of hepatitis, consider switching to a different agent at some point. * Patient seen at [facility] in 09/[place]. Patient had TTE at that time which did NOT show vegetations on valve. Patient was also seen by psychiatry at that time as well as general surgery for abscess I&D. Will attempt to obtain patient's March [facility] medical records with information regarding valve surgery Low back pain * lumbar spine XR - No abnormalities seen * flexeril 5 mg PO QHS as well as 5mg TID * MRI lumbar spine - No acute fracture, spondylolysis or spondylolisthesis. No evidence of discitis/osteomyelitis. Mild degenerative disc disease at L4-5 with a posterior disc bulge and superimposed right foraminal disc protrusion. Mild right neural foraminal stenosis. No central spinal canal stenosis. Note is made of splenomegaly, perisplenic and splenorenal arises in this patient with known hepatic cirrhosis. Left shoulder pain/weakness * 2/2 Hx of fall * Left shoulder XR (12/13) - no acute dislocation or fracture, soft tissues unremarkable Diarrhea * Stool Culture/O&P (12/12) - negative for O&P, salmonella, shigella, and campylobacter * Stool negative for leukocytes and occult blood (12/12) * Serum C. diff antigen and toxin negative (12/12) * Stool C diff (Neg) and repeat leukocytes (Neg) * stool culture 12/16 negative History of Seizures * Continue Keppra 500 mg PO BID * Continue Gabapentin 300 mg PO BID History of Depression * Continue Zoloft 50 mg PO daily History of Hepatitis B & C * Monitor LFTs. 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 Leyva): does not recommend CASPER at this time * Positive blood culture for Strep mitis * F/U Repeated BC (12/14) - no growth x24h * Cont zosyn and d/c vanc per Dr. Trevino as stated above * Hx of IV drug use/porcine valve * CT surg consult (Dr. Peralta) - says should be followed up with surgeon who did original AV replacement * F/U Medical records from [facility] - call original surgeon for AV valve replacement and see if he would like to accept the patient at [facility] * CXR: Right-sided central venous catheter extends to the cavoatrial junction. Mild left basilar atelectasis/infiltrate and or small pleural effusion. Median sternotomy wires. Cardiomegaly. Prophylactic Measure * Heparin and GI ppx held due to platelets * SCDs for now <Chichi Dc V - Last Filed: 12/21/16 19:00> Objective - Vital Signs/Intake and Output Vital Signs (last 24 hours): Temp Pulse Resp BP Pulse Ox 98.6 F 96 H 20 116/70 97 12/21/16 16:04 12/21/16 16:04 12/21/16 16:04 12/21/16 16:04 12/21/16 16:04 Intake and Output: 12/21/16 12/21/16 06:59 18:59 Intake Total 1040 100 Output Total 1400 Balance -360 100 - Medications Medications: Current Medications Acetaminophen (Tylenol 325mg Tab) 650 mg PO Q6 PRN PRN Reason: Fever >100.4 F Last Admin: 12/14/16 19:03 Dose: 650 mg Benztropine Mesylate (Cogentin) 1 mg PO Q6 PRN PRN Reason: Other Last Admin: 12/07/16 10:00 Dose: 1 mg Clonidine HCl (Catapres) 0.1 mg PO Q8 PRN PRN Reason: COWS Score More or Equal to 5 Last Admin: 12/07/16 00:37 Dose: 0.1 mg Cyclobenzaprine HCl (Flexeril) 5 mg PO TID PRN PRN Reason: Muscle spasm Last Admin: 12/21/16 17:04 Dose: 5 mg Dicyclomine HCl (Bentyl) 20 mg PO Q8 PRN PRN Reason: ABDOMINAL PAIN Last Admin: 12/13/16 18:15 Dose: 20 mg Gabapentin (Neurontin) 300 mg PO BID [facility] Last Admin: 12/21/16 17:02 Dose: 300 mg Hydroxyzine HCl (Atarax) 50 mg PO Q6H PRN PRN Reason: Anxiety Last Admin: 12/21/16 14:30 Dose: 50 mg Piperacillin Sod/Tazobactam (Sod 3.375 gm/ Sodium Chloride) 100 mls @ 200 mls/ hr IVPB Q6H [facility] Last Admin: 12/21/16 17:02 Dose: 200 mls/hr Levetiracetam (Keppra) 500 mg PO BID [facility] Last Admin: 12/21/16 17:02 Dose: 500 mg Ondansetron HCl (Zofran Tab) 4 mg PO Q8 PRN PRN Reason: Nausea/Vomiting Last Admin: 12/11/16 20:00 Dose: 4 mg Saccharomyces Boulardii (Florastor) 250 mg PO BID [facility] Sertraline HCl (Zoloft) 50 mg PO DAILY [facility] Last Admin: 12/21/16 09:24 Dose: 50 mg Trazodone HCl (Desyrel) 100 mg PO HS [facility] Last Admin: 12/20/16 22:03 Dose: 100 mg - Labs Labs: 12/21/16 07:24 12/21/16 07:24 PT 14.2 SECONDS (9.7-12.2) H 12/12/16 07:08 INR 1.3 12/12/16 07:08 APTT 32 SECONDS (21-34) 12/12/16 07:08 Attending/Attestation - Attestation I have personally seen and examined this patient.: Yes I have fully participated in the care of the patient.: Yes I have reviewed all pertinent clinical information, including history, physical exam and plan: Yes Notes (Text): This is late computer entry for 12/18/16. Patient seen, examined, and case discussed with day-time resident. Repeat blood cultures remain negative; patient to continue IV abx for 6 weeks. Will f/u Interventional Radiology for possible FNA lung biopsy--> it is a holiday weekend; will endorse to colleague to attempt on Tuesday Discussed with neurology (Dr. Juan)-->does not recommend LP secondary lack of neurologic deficits Reviewed prior [facility] records from last admission wherein patient had neck abscess from drug use; not from patient's original endocarditis admission Discussed with Dr. Leyva, cardiology given thoracic recommendation, he reports he will speak with Dr. Willson (thoracic surgery) from [facility] and see if he will accept the patient-->will endorse to my colleague to followup Assessment/Plan 1) Sepsis * Criteria: WBC<4; Temp: 104 F; positive blood cultures; Lactate: 1.2 on admission * Infectious Disease (Dr. Trevino) on board * IV abx for 6 weeks * Echocardiogram (12/14/16): left ventricle systolic function is normal; EF: 60- 65%, Transmital doppler flow pattern is Grade I abnormal relaxation pattern. Right ventricular systolic function is normal. Aortic valve bioprosthetic. Mobile density seen with high velocities across Aortic valve highly suspicious for aortic valve endocarditis. recommended for CASPER * Blood cultures (12/12/16): Strep mitis X2 * Blood culture (12/14/16): No growth thus far * Blood culture (12/16/16): No growth thus far * Urine culture (12/12/16): no growth * Zosyn 3.375 gm Q6H (active since 12/12/16) * NS 70 cc/hr * Tylenol 650 mg PO Q6 prn fever. Monitor liver function tests in light of hepatitis hx * Concern for possible endocarditis 2) Endocarditis * Infectious Disease (Dr. Trevino) on board-->help appreciated * IV abx for 6 weeks * Cardiology (Dr. Leyva)-->no CASPER; patient has endocarditis * Echocardiogram (12/14/16): left ventricle systolic function is normal; EF: 60- 65%, Transmital doppler flow pattern is Grade I abnormal relaxation pattern. Right ventricular systolic function is normal. Aortic valve bioprosthetic. Mobile density seen with high velocities across Aortic valve highly suspicious for aortic valve endocarditis. recommended for CASPER * IV Abx: Zosyn 3.375 gm Q6H (active since 12/12/16) and Vancomycin discontinued * Blood cultures (12/12/16): Strep mitis X2 * Blood cultures (12/14/16): pending * Risk factors: +murmur, IV drug use (2 major in Daily's Criteria) * Chest Xray (12/16/16): CXR: Right-sided central venous catheter extends to the cavoatrial junction. Mild left basilar atelectasis/infiltrate and or small pleural effusion. Median sternotomy wires. Cardiomegaly. 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 Mild degenerative disc disease at L4-5 with a posterior disc bulge and superimposed right foraminal disc protrusion. Mild right neural foraminal stenosis. No central spinal canal stenosis. Note is made of splenomegaly, perisplenic and splenorenal arises in this patient with known hepatic cirrhosis. * Flexeril 5mg PO TID prn muscle spasm 6) Diarrhea * Stool culture/O&P (12/12): negative for O&P, salmonella, shigella, and campylobacter * Stool negative for leukocytes and occult blood * Serum C. Diff antigen and toxin: negative * f/u Repeat Stool studies in light of IV abx use 7) History of Seizures * Continue Keppra 500 mg PO BID * Continue Gabapentin 300 mg PO BID 8) History of Depression * Continue Zoloft 50 mg PO daily 9) History of Hepatitis B & C * Monitor LFTs. Currently WNL 10) Pancytopenia * Heme-Onc (Dr. 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 On old admission growth factors like Neupogen (Filgrastim) were recommended for low WBC. * Monitor H/H and platelets 11) Prophylactic Measure * Heparin and GI ppx held due thrombocytopenia * SCDs for now
[2016-12-19] MEDS: Piperacillin/Tazobact 3.375 GM in Sodium Chloride 100 ML IVPB SCH ×5 (05:00→21:25)
[2016-12-19 07:28] LABS: BASO % 0.3 % (0.0-2.0); EOS % 0.4 % (0.0-4.0); HEMATOCRIT 27.9 % (35.0-51.0); LYMPH # 0.6 K/uL (1.0-4.3); LYMPH % 16.4 % (20.0-40.0); MEAN CELL VOLUME 77.5 fL (80.0-94.0); MEAN CORPUSCULAR HEMOGLOBIN 25.6 pg (27.0-31.0); MEAN PLATELET VOLUME 8.6 fL (7.2-11.7); MONO # 0.3 K/uL (0.0-0.8); MONO % 6.9 % (0.0-10.0); RED CELL DISTRIBUTION WIDTH 15.6 % (11.5-14.5); WHITE BLOOD COUNT 3.8 K/uL (4.8-10.8)
[2016-12-19 07:39] LABS: ALB/GLOB RATIO 0.9 (1.0-2.1); ALKALINE PHOSPHATASE 60 U/L (38-126); ALT/SGPT 29 U/L (21-72); AST/SGOT 24 U/L (17-59); BILIRUBIN,TOTAL 0.4 mg/dL (0.2-1.3); BLOOD UREA NITROGEN 13 mg/dL (9-20); CALCIUM 8.6 mg/dl (8.6-10.4); CARBON DIOXIDE 24 mmol/L (22-30); CHLORIDE 105 mmol/L (98-107); GFR AFRICAN-AMERICAN > 60; GLUCOSE,RANDOM 84 mg/dL (75-110); MAGNESIUM 1.8 mg/dL (1.6-2.3); PHOSPHOROUS 3.6 mg/dL (2.5-4.5); POTASSIUM 3.8 mmol/L (3.6-5.2); SODIUM 139 mmol/L (132-148); TOTAL PROTEIN 5.8 g/dL (6.3-8.3)
[2016-12-19] MEDS: Saccharomyces Boulardi 250 mg Cap PO SCH ×2 (09:55→18:11)
--- NOTE | 2016-12-19 15:07 | CP.PCM.PN ---
<Eliana Caraballo DO - Last Filed: 12/19/16 15:05> Subjective - Date & Time of Evaluation Date of Evaluation: 12/19/16 Time of Evaluation: 08:45 - Subjective Subjective: Medicine progress note for Dr. Dc Patient seen and examined. Patient states he has a very good appetite and feels well but has occasional diarrhea. Patient denies fevers or chills. Patient admits that he needs to go get help to quit using IV drugs as this is the second time he has become bacteremic. Objective - Vital Signs/Intake and Output Vital Signs (last 24 hours): Temp Pulse Resp BP Pulse Ox 98.0 F 88 20 112/72 97 12/18/16 23:45 12/19/16 07:30 12/18/16 23:45 12/18/16 23:45 12/18/16 23:45 Intake and Output: 12/19/16 12/19/16 06:59 18:59 Output Total 1400 Balance -1400 - Medications Medications: Current Medications Acetaminophen (Tylenol 325mg Tab) 650 mg PO Q6 PRN PRN Reason: Fever >100.4 F Last Admin: 12/14/16 19:03 Dose: 650 mg Benztropine Mesylate (Cogentin) 1 mg PO Q6 PRN PRN Reason: Other Last Admin: 12/07/16 10:00 Dose: 1 mg Clonidine HCl (Catapres) 0.1 mg PO Q8 PRN PRN Reason: COWS Score More or Equal to 5 Last Admin: 12/07/16 00:37 Dose: 0.1 mg Cyclobenzaprine HCl (Flexeril) 5 mg PO TID PRN PRN Reason: Muscle spasm Last Admin: 12/19/16 08:19 Dose: 5 mg Dicyclomine HCl (Bentyl) 20 mg PO Q8 PRN PRN Reason: ABDOMINAL PAIN Last Admin: 12/13/16 18:15 Dose: 20 mg Gabapentin (Neurontin) 300 mg PO BID COUNT INCLUDES THE [facility] Last Admin: 12/19/16 09:55 Dose: 300 mg Piperacillin Sod/Tazobactam (Sod 3.375 gm/ Sodium Chloride) 100 mls @ 200 mls/ hr IVPB Q6H COUNT INCLUDES THE [facility] Last Admin: 12/19/16 10:17 Dose: 200 mls/hr Levetiracetam (Keppra) 500 mg PO BID COUNT INCLUDES THE [facility] Last Admin: 12/19/16 09:55 Dose: 500 mg Ondansetron HCl (Zofran Tab) 4 mg PO Q8 PRN PRN Reason: Nausea/Vomiting Last Admin: 12/11/16 20:00 Dose: 4 mg Saccharomyces Boulardii (Florastor) 250 mg PO BID COUNT INCLUDES THE [facility] Last Admin: 12/19/16 09:55 Dose: 250 mg Sertraline HCl (Zoloft) 50 mg PO DAILY COUNT INCLUDES THE [facility] Last Admin: 12/19/16 09:55 Dose: 50 mg Trazodone HCl (Desyrel) 100 mg PO HS COUNT INCLUDES THE [facility] Last Admin: 12/18/16 22:30 Dose: 100 mg - Labs Labs: 12/19/16 07:15 12/19/16 07:15 PT 14.2 SECONDS (9.7-12.2) H 12/12/16 07:08 INR 1.3 12/12/16 07:08 APTT 32 SECONDS (21-34) 12/12/16 07:08 - Constitutional Appears: Non-toxic, No Acute Distress - Head Exam Head Exam: ATRAUMATIC, NORMOCEPHALIC - Eye Exam Eye Exam: EOMI - ENT Exam ENT Exam: Mucous Membranes Moist - Neck Exam Additional comments: right IJ central line - Respiratory Exam Respiratory Exam: Clear to Ausculation Bilateral, NORMAL BREATHING PATTERN - Cardiovascular Exam Cardiovascular Exam: +S1, +S2, Murmur - GI/Abdominal Exam GI & Abdominal Exam: Soft, Normal Bowel Sounds. absent: Tenderness - Extremities Exam Extremities Exam: Normal Inspection. absent: Calf Tenderness, Pedal Edema - Neurological Exam Neurological Exam: Alert, Awake - Psychiatric Exam Psychiatric exam: Normal Affect - Skin Skin Exam: Dry, Warm Assessment and Plan - Assessment and Plan (Free Text) Assessment: Bacteremia * CXR 12/12 - heterogenous infiltrate at inferior Right and Mid/inferior left lung zones vs atelectasis with likely small left pleural effusion and Right central venous line terminating at the right atrium; Repeat CXR 12/13 shows right IJ central venous line with tip in the SVC after adjustment and right lower lobe opacity with improvement * Echo 12/12: Mobile density seen with high velocities across AV highly suspicious for AV endocarditis, transmitral doppler flow pattern is grade 1 ( abnormal relaxation pattern), LV and RV systolic function normal, EF = 60-65% * Blood cultures 12/12 - Gram positive cocci in chains (Strep mitis in final read ) * Urine culture 12/12 - no growth * Cont Zosyn 3.375 gm Q6H for now and d/c Vancomycin 1 gm Q12H (12/14) - ID recs ([facility]angia) * 12/13 Vanc trough: 6.4 * Tylenol 650 mg PO Q6 prn fever. Due to history of hepatitis, consider switching to a different agent at some point. * Patient seen at [facility] in 09/2016. Patient had TTE at that time which did NOT show vegetations on valve. Patient was also seen by psychiatry at that time as well as general surgery for abscess I&D. Will attempt to obtain patient's March [facility] medical records with information regarding valve surgery- will inquire whether CT surgeon, Dr. Willson, will accept patient onto service Low back pain * lumbar spine XR - No abnormalities seen * flexeril 5mg TID * MRI lumbar spine - No acute fracture, spondylolysis or spondylolisthesis. No evidence of discitis/osteomyelitis. Mild degenerative disc disease at L4-5 with a posterior disc bulge and superimposed right foraminal disc protrusion. Mild right neural foraminal stenosis. No central spinal canal stenosis. Note is made of splenomegaly, perisplenic and splenorenal arises in this patient with known hepatic cirrhosis. Left shoulder pain/weakness * 2/2 Hx of fall * Left shoulder XR (12/13) - no acute dislocation or fracture, soft tissues unremarkable Diarrhea * Stool Culture/O&P (12/12) - negative for O&P, salmonella, shigella, and campylobacter * Stool negative for leukocytes and occult blood (12/12) * Serum C. diff antigen and toxin negative (12/12) * Stool C diff (Neg) and repeat leukocytes (Neg) * stool culture 12/16 negative History of Seizures * Continue Keppra 500 mg PO BID * Continue Gabapentin 300 mg PO BID History of Depression * Continue Zoloft 50 mg PO daily History of Hepatitis B & C * Monitor LFTs. 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 Leyva): does not recommend CASPER at this time * Positive blood culture for Strep mitis * F/U Repeated BC (12/14) - no growth x24h * Cont zosyn and d/c vanc per Dr. Trevino as stated above * Hx of IV drug use/porcine valve * CT surg consult (Dr. Peralta) - says should be followed up with surgeon who did original AV replacement * F/U Medical records from [facility] - call original surgeon for AV valve replacement and see if he would like to accept the patient at [facility] * CXR: Right-sided central venous catheter extends to the cavoatrial junction. Mild left basilar atelectasis/infiltrate and or small pleural effusion. Median sternotomy wires. Cardiomegaly. Prophylactic Measure * Heparin and GI ppx held due to platelets * SCDs for now <Chichi Dc V - Last Filed: 12/21/16 19:02> Objective - Vital Signs/Intake and Output Vital Signs (last 24 hours): Temp Pulse Resp BP Pulse Ox 98.6 F 96 H 20 116/70 97 12/21/16 16:04 12/21/16 16:04 12/21/16 16:04 12/21/16 16:04 12/21/16 16:04 Intake and Output: 12/21/16 12/22/16 18:59 06:59 Intake Total 100 Balance 100 - Medications Medications: Current Medications Acetaminophen (Tylenol 325mg Tab) 650 mg PO Q6 PRN PRN Reason: Fever >100.4 F Last Admin: 12/14/16 19:03 Dose: 650 mg Benztropine Mesylate (Cogentin) 1 mg PO Q6 PRN PRN Reason: Other Last Admin: 12/07/16 10:00 Dose: 1 mg Clonidine HCl (Catapres) 0.1 mg PO Q8 PRN PRN Reason: COWS Score More or Equal to 5 Last Admin: 12/07/16 00:37 Dose: 0.1 mg Cyclobenzaprine HCl (Flexeril) 5 mg PO TID PRN PRN Reason: Muscle spasm Last Admin: 12/21/16 17:04 Dose: 5 mg Dicyclomine HCl (Bentyl) 20 mg PO Q8 PRN PRN Reason: ABDOMINAL PAIN Last Admin: 12/13/16 18:15 Dose: 20 mg Gabapentin (Neurontin) 300 mg PO BID COUNT INCLUDES THE [facility] Last Admin: 12/21/16 17:02 Dose: 300 mg Hydroxyzine HCl (Atarax) 50 mg PO Q6H PRN PRN Reason: Anxiety Last Admin: 12/21/16 14:30 Dose: 50 mg Piperacillin Sod/Tazobactam (Sod 3.375 gm/ Sodium Chloride) 100 mls @ 200 mls/ hr IVPB Q6H COUNT INCLUDES THE [facility] Last Admin: 12/21/16 17:02 Dose: 200 mls/hr Levetiracetam (Keppra) 500 mg PO BID COUNT INCLUDES THE [facility] Last Admin: 12/21/16 17:02 Dose: 500 mg Ondansetron HCl (Zofran Tab) 4 mg PO Q8 PRN PRN Reason: Nausea/Vomiting Last Admin: 12/11/16 20:00 Dose: 4 mg Saccharomyces Boulardii (Florastor) 250 mg PO BID COUNT INCLUDES THE [facility] Sertraline HCl (Zoloft) 50 mg PO DAILY COUNT INCLUDES THE [facility] Last Admin: 12/21/16 09:24 Dose: 50 mg Trazodone HCl (Desyrel) 100 mg PO HS COUNT INCLUDES THE [facility] Last Admin: 12/20/16 22:03 Dose: 100 mg - Labs Labs: 12/21/16 07:24 12/21/16 07:24 PT 14.2 SECONDS (9.7-12.2) H 12/12/16 07:08 INR 1.3 12/12/16 07:08 APTT 32 SECONDS (21-34) 12/12/16 07:08 Attending/Attestation - Attestation I have personally seen and examined this patient.: Yes I have fully participated in the care of the patient.: Yes I have reviewed all pertinent clinical information, including history, physical exam and plan: Yes Notes (Text): This is late computer entry for 12/19/16. Patient seen, examined, and case discussed with day-time resident. Repeat blood cultures remain negative; patient to continue IV abx for 6 weeks. Will f/u Interventional Radiology for possible FNA lung biopsy--> it is a holiday weekend; will endorse to colleague to attempt on Tuesday Reviewed prior [facility] records from last admission wherein patient had neck abscess from drug use; not from patient's original endocarditis admission; will attempt to get 2015 records when holiday weekend is over f/u cardiology regarding thoracic/possible transfer Assessment/Plan 1) Sepsis * Criteria: WBC<4; Temp: 104 F; positive blood cultures; Lactate: 1.2 on admission * Infectious Disease (Dr. Trevino) on board * IV abx for 6 weeks * Echocardiogram (12/14/16): left ventricle systolic function is normal; EF: 60- 65%, Transmital doppler flow pattern is Grade I abnormal relaxation pattern. Right ventricular systolic function is normal. Aortic valve bioprosthetic. Mobile density seen with high velocities across Aortic valve highly suspicious for aortic valve endocarditis. recommended for CASPER * Blood cultures (12/12/16): Strep mitis X2 * Blood culture (12/14/16): No growth thus far * Blood culture (12/16/16): No growth thus far * Urine culture (12/12/16): no growth * Zosyn 3.375 gm Q6H (active since 12/12/16) * NS 70 cc/hr * Tylenol 650 mg PO Q6 prn fever. Monitor liver function tests in light of hepatitis hx * Concern for possible endocarditis 2) Endocarditis * Infectious Disease (Dr. Trevino) on board-->help appreciated * IV abx for 6 weeks * Cardiology (Dr. Leyva)-->no CASPER; patient has endocarditis * Echocardiogram (12/14/16): left ventricle systolic function is normal; EF: 60- 65%, Transmital doppler flow pattern is Grade I abnormal relaxation pattern. Right ventricular systolic function is normal. Aortic valve bioprosthetic. Mobile density seen with high velocities across Aortic valve highly suspicious for aortic valve endocarditis. recommended for CASPER * IV Abx: Zosyn 3.375 gm Q6H (active since 12/12/16) and Vancomycin discontinued * Blood cultures (12/12/16): Strep mitis X2 * Blood cultures (12/14/16): pending * Risk factors: +murmur, IV drug use (2 major in Daily's Criteria) * Chest Xray (12/16/16): CXR: Right-sided central venous catheter extends to the cavoatrial junction. Mild left basilar atelectasis/infiltrate and or small pleural effusion. Median sternotomy wires. Cardiomegaly. 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 Mild degenerative disc disease at L4-5 with a posterior disc bulge and superimposed right foraminal disc protrusion. Mild right neural foraminal stenosis. No central spinal canal stenosis. Note is made of splenomegaly, perisplenic and splenorenal arises in this patient with known hepatic cirrhosis. * Flexeril 5mg PO TID prn muscle spasm 6) Diarrhea * Stool culture/O&P (12/12): negative for O&P, salmonella, shigella, and campylobacter * Stool negative for leukocytes and occult blood * Serum C. Diff antigen and toxin: negative * f/u Repeat Stool studies in light of IV abx use 7) History of Seizures * Continue Keppra 500 mg PO BID * Continue Gabapentin 300 mg PO BID 8) History of Depression * Continue Zoloft 50 mg PO daily 9) History of Hepatitis B & C * Monitor LFTs. Currently WNL 10) Pancytopenia * Heme-Onc (Dr. 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 On old admission growth factors like Neupogen (Filgrastim) were recommended for low WBC. * Monitor H/H and platelets 11) Prophylactic Measure * Heparin and GI ppx held due thrombocytopenia * SCDs for now
[2016-12-20] MEDS: Piperacillin/Tazobact 3.375 GM in Sodium Chloride 100 ML IVPB SCH ×4 (03:16→22:03)
[2016-12-20 06:46] LABS: BASO % 0.4 % (0.0-2.0); EOS % 0.2 % (0.0-4.0); HEMATOCRIT 27.5 % (35.0-51.0); LYMPH # 0.5 K/uL (1.0-4.3); LYMPH % 14.1 % (20.0-40.0); MEAN CELL VOLUME 77.7 fL (80.0-94.0); MEAN CORPUSCULAR HEMOGLOBIN 25.7 pg (27.0-31.0); MEAN PLATELET VOLUME 8.2 fL (7.2-11.7); MONO # 0.2 K/uL (0.0-0.8); MONO % 6.3 % (0.0-10.0); NRBC % 0.1 % (0.0-2.0); RED CELL DISTRIBUTION WIDTH 15.7 % (11.5-14.5); WHITE BLOOD COUNT 3.8 K/uL (4.8-10.8)
[2016-12-20 06:48] LABS: ALB/GLOB RATIO 0.9 (1.0-2.1); ALKALINE PHOSPHATASE 60 U/L (38-126); ALT/SGPT 31 U/L (21-72); AST/SGOT 23 U/L (17-59); BILIRUBIN,TOTAL 0.4 mg/dL (0.2-1.3); BLOOD UREA NITROGEN 13 mg/dL (9-20); CALCIUM 8.6 mg/dl (8.6-10.4); CARBON DIOXIDE 25 mmol/L (22-30); CHLORIDE 106 mmol/L (98-107); GFR AFRICAN-AMERICAN > 60; GLUCOSE,RANDOM 99 mg/dL (75-110); MAGNESIUM 1.7 mg/dL (1.6-2.3); PHOSPHOROUS 3.4 mg/dL (2.5-4.5); POTASSIUM 3.7 mmol/L (3.6-5.2); SODIUM 140 mmol/L (132-148); TOTAL PROTEIN 5.7 g/dL (6.3-8.3)
[2016-12-20] MEDS: Saccharomyces Boulardi 250 mg Cap PO SCH ×2 (10:11→17:52)
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
[2016-12-21] MEDS: Piperacillin/Tazobact 3.375 GM in Sodium Chloride 100 ML IVPB SCH ×4 (03:05→21:45)
[2016-12-21 07:41] LABS: BASO % 0.4 % (0.0-2.0); EOS % 0.4 % (0.0-4.0); LYMPH # 0.5 K/uL (1.0-4.3); LYMPH % 11.9 % (20.0-40.0); MEAN CORPUSCULAR HEMOGLOBIN 25.6 pg (27.0-31.0); MEAN CORPUSCULAR HGB CONC 32.8 g/dL (33.0-37.0); MONO # 0.3 K/uL (0.0-0.8); MONO % 6.1 % (0.0-10.0); RED CELL DISTRIBUTION WIDTH 16.5 % (11.5-14.5); WHITE BLOOD COUNT 4.6 K/uL (4.8-10.8)
[2016-12-21 08:20] LABS: CHLORIDE 105 mmol/L (98-107); SODIUM 142 mmol/L (132-148)
[2016-12-21 08:22] LABS: ALKALINE PHOSPHATASE 64 U/L (38-126); AST/SGOT 26 U/L (17-59); BILIRUBIN,TOTAL 0.7 mg/dL (0.2-1.3); BLOOD UREA NITROGEN 15 mg/dL (9-20); CARBON DIOXIDE 22 mmol/L (22-30); GFR AFRICAN-AMERICAN > 60; TOTAL PROTEIN 6.4 g/dL (6.3-8.3)
[2016-12-21 08:23] LABS: ALT/SGPT 33 U/L (21-72); CALCIUM 8.6 mg/dl (8.6-10.4); GLUCOSE,RANDOM 88 mg/dL (75-110); MAGNESIUM 1.5 mg/dL (1.6-2.3); PHOSPHOROUS 3.4 mg/dL (2.5-4.5)
[2016-12-21 08:33] LABS: ALB/GLOB RATIO 0.9 (1.0-2.1)
[2016-12-21] MEDS: Saccharomyces Boulardi 250 mg Cap PO SCH ×2 (09:24→19:09)
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
[2016-12-21] MEDS ORDERED: Magnesium Sulfate 1 gm in D5W 1 GM/100 ML BAG IVPB ONE (17:58)
--- NOTE | 2016-12-21 21:31 | CP.PCM.PN ---
Subjective - Date & Time of Evaluation Date of Evaluation: 12/21/16 Time of Evaluation: 18:55 - Subjective Subjective: No complaints. Objective - Vital Signs/Intake and Output Vital Signs (last 24 hours): Temp Pulse Resp BP Pulse Ox 98.6 F 96 H 20 116/70 97 12/21/16 16:04 12/21/16 16:04 12/21/16 16:04 12/21/16 16:04 12/21/16 16:04 Intake and Output: 12/21/16 12/22/16 18:59 06:59 Intake Total 100 Balance 100 - Medications Medications: Current Medications Acetaminophen (Tylenol 325mg Tab) 650 mg PO Q6 PRN PRN Reason: Fever >100.4 F Last Admin: 12/14/16 19:03 Dose: 650 mg Benztropine Mesylate (Cogentin) 1 mg PO Q6 PRN PRN Reason: Other Last Admin: 12/07/16 10:00 Dose: 1 mg Clonidine HCl (Catapres) 0.1 mg PO Q8 PRN PRN Reason: COWS Score More or Equal to 5 Last Admin: 12/07/16 00:37 Dose: 0.1 mg Cyclobenzaprine HCl (Flexeril) 5 mg PO TID PRN PRN Reason: Muscle spasm Last Admin: 12/21/16 17:04 Dose: 5 mg Dicyclomine HCl (Bentyl) 20 mg PO Q8 PRN PRN Reason: ABDOMINAL PAIN Last Admin: 12/13/16 18:15 Dose: 20 mg Gabapentin (Neurontin) 300 mg PO BID [facility] Last Admin: 12/21/16 17:02 Dose: 300 mg Hydroxyzine HCl (Atarax) 50 mg PO Q6H PRN PRN Reason: Anxiety Last Admin: 12/21/16 14:30 Dose: 50 mg Piperacillin Sod/Tazobactam (Sod 3.375 gm/ Sodium Chloride) 100 mls @ 200 mls/ hr IVPB Q6H [facility] Last Admin: 12/21/16 17:02 Dose: 200 mls/hr Levetiracetam (Keppra) 500 mg PO BID [facility] Last Admin: 12/21/16 17:02 Dose: 500 mg Ondansetron HCl (Zofran Tab) 4 mg PO Q8 PRN PRN Reason: Nausea/Vomiting Last Admin: 12/11/16 20:00 Dose: 4 mg Saccharomyces Boulardii (Florastor) 250 mg PO BID [facility] Last Admin: 12/21/16 19:09 Dose: 250 mg Sertraline HCl (Zoloft) 50 mg PO DAILY [facility] Last Admin: 12/21/16 09:24 Dose: 50 mg Trazodone HCl (Desyrel) 100 mg PO HS [facility] Last Admin: 12/20/16 22:03 Dose: 100 mg - Labs Labs: 12/21/16 07:24 12/21/16 07:24 PT 14.2 SECONDS (9.7-12.2) H 12/12/16 07:08 INR 1.3 12/12/16 07:08 APTT 32 SECONDS (21-34) 12/12/16 07:08 - Head Exam Head Exam: ATRAUMATIC - Eye Exam Eye Exam: Normal appearance - ENT Exam ENT Exam: Mucous Membranes Dry - Respiratory Exam Respiratory Exam: NORMAL BREATHING PATTERN - Cardiovascular Exam Cardiovascular Exam: +S1, +S2 - GI/Abdominal Exam GI & Abdominal Exam: Normal Bowel Sounds Assessment and Plan (1) Pancytopenia Assessment & Plan: multifactorial, HIV, sepsis, liver diseases with splenic sequestration borderline iron stores; recommend against IV iron supplementation until infection resolves transfusion support PRN Status: Acute
[2016-12-22] MEDS: Piperacillin/Tazobact 3.375 GM in Sodium Chloride 100 ML IVPB SCH ×4 (03:54→21:44)
[2016-12-22] MEDS: Saccharomyces Boulardi 250 mg Cap PO SCH ×2 (09:42→17:37)
[2016-12-22 11:21] LABS: BASO % 0.5 % (0.0-2.0); EOS % 0.2 % (0.0-4.0); HEMATOCRIT 27.6 % (35.0-51.0); LYMPH # 0.5 K/uL (1.0-4.3); LYMPH % 10.6 % (20.0-40.0); MEAN CELL VOLUME 78.7 fL (80.0-94.0); MEAN CORPUSCULAR HEMOGLOBIN 25.8 pg (27.0-31.0); MEAN CORPUSCULAR HGB CONC 32.7 g/dL (33.0-37.0); MEAN PLATELET VOLUME 8.2 fL (7.2-11.7); MONO # 0.3 K/uL (0.0-0.8); MONO % 6.5 % (0.0-10.0); NRBC % 0.6 % (0.0-2.0); RED CELL DISTRIBUTION WIDTH 16.9 % (11.5-14.5); WHITE BLOOD COUNT 4.4 K/uL (4.8-10.8)
[2016-12-22 11:34] LABS: ALB/GLOB RATIO 0.8 (1.0-2.1); ALKALINE PHOSPHATASE 64 U/L (38-126); ALT/SGPT 31 U/L (21-72); AST/SGOT 22 U/L (17-59); BILIRUBIN,TOTAL 0.6 mg/dL (0.2-1.3); BLOOD UREA NITROGEN 17 mg/dL (9-20); CALCIUM 8.3 mg/dl (8.6-10.4); CARBON DIOXIDE 23 mmol/L (22-30); CHLORIDE 103 mmol/L (98-107); GFR AFRICAN-AMERICAN > 60; GLUCOSE,RANDOM 152 mg/dL (75-110); MAGNESIUM 1.6 mg/dL (1.6-2.3); POTASSIUM 3.6 mmol/L (3.6-5.2); SODIUM 140 mmol/L (132-148)
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
[2016-12-23] MEDS: Piperacillin/Tazobact 3.375 GM in Sodium Chloride 100 ML IVPB SCH ×4 (03:11→20:57)
--- NOTE | 2016-12-23 07:10 | CP.PCM.PN ---
Subjective - Date & Time of Evaluation Date of Evaluation: 12/23/16 Time of Evaluation: 07:10 - Subjective Subjective: Patient seen and examined at bedside. Patient denied any acute events overnight. Pt says he is not having diarrhea today and BMs are more soft in consistency now.. Patient reports his back spasm/pain has been alleviated with flexeril. Patient says he is having difficulty sleeping and is only sleeping about 4 hours per night. Patient denied any loza/cp/sob/abd pain/f/c/n/v. Objective - Vital Signs/Intake and Output Vital Signs (last 24 hours): Temp Pulse Resp BP Pulse Ox 98.3 F 102 H 20 131/67 96 12/22/16 23:55 12/23/16 03:35 12/22/16 23:55 12/22/16 23:55 12/22/16 23:55 Intake and Output: 12/23/16 12/23/16 06:59 18:59 Output Total 700 Balance -700 - Medications Medications: Current Medications Acetaminophen (Tylenol 325mg Tab) 650 mg PO Q6 PRN PRN Reason: Fever >100.4 F Last Admin: 12/14/16 19:03 Dose: 650 mg Benztropine Mesylate (Cogentin) 1 mg PO Q6 PRN PRN Reason: Other Last Admin: 12/07/16 10:00 Dose: 1 mg Clonidine HCl (Catapres) 0.1 mg PO Q8 PRN PRN Reason: COWS Score More or Equal to 5 Last Admin: 12/07/16 00:37 Dose: 0.1 mg Cyclobenzaprine HCl (Flexeril) 5 mg PO TID PRN PRN Reason: Muscle spasm Last Admin: 12/23/16 06:14 Dose: 5 mg Dicyclomine HCl (Bentyl) 20 mg PO Q8 PRN PRN Reason: ABDOMINAL PAIN Last Admin: 12/13/16 18:15 Dose: 20 mg Gabapentin (Neurontin) 300 mg PO BID [facility] Last Admin: 12/22/16 17:37 Dose: 300 mg Hydroxyzine HCl (Atarax) 50 mg PO Q6H PRN PRN Reason: Anxiety Last Admin: 12/22/16 09:42 Dose: 50 mg Piperacillin Sod/Tazobactam (Sod 3.375 gm/ Sodium Chloride) 100 mls @ 200 mls/ hr IVPB Q6H [facility] Last Admin: 12/23/16 03:11 Dose: 200 mls/hr Levetiracetam (Keppra) 500 mg PO BID [facility] Last Admin: 12/22/16 17:37 Dose: 500 mg Ondansetron HCl (Zofran Tab) 4 mg PO Q8 PRN PRN Reason: Nausea/Vomiting Last Admin: 12/11/16 20:00 Dose: 4 mg Saccharomyces Boulardii (Florastor) 250 mg PO BID [facility] Last Admin: 12/22/16 17:37 Dose: 250 mg Sertraline HCl (Zoloft) 50 mg PO DAILY [facility] Last Admin: 12/22/16 09:41 Dose: 50 mg Trazodone HCl (Desyrel) 100 mg PO HS [facility] Last Admin: 12/22/16 21:45 Dose: 100 mg - Labs Labs: 12/22/16 11:14 12/22/16 11:14 PT 14.2 SECONDS (9.7-12.2) H 12/12/16 07:08 INR 1.3 12/12/16 07:08 APTT 32 SECONDS (21-34) 12/12/16 07:08 - Constitutional Appears: Non-toxic, No Acute Distress - Head Exam Head Exam: NORMAL INSPECTION - Eye Exam Eye Exam: EOMI - ENT Exam ENT Exam: Mucous Membranes Moist - Respiratory Exam Respiratory Exam: Clear to Ausculation Bilateral, NORMAL BREATHING PATTERN - Cardiovascular Exam Cardiovascular Exam: REGULAR RHYTHM, +S2, Murmur (JENNIFER) - GI/Abdominal Exam GI & Abdominal Exam: Soft, Normal Bowel Sounds. absent: Distended, Tenderness - Extremities Exam Extremities Exam: Normal Inspection. absent: Calf Tenderness, Pedal Edema - Neurological Exam Neurological Exam: Alert, Awake - Psychiatric Exam Psychiatric exam: Normal Affect, Normal Mood - Skin Skin Exam: Dry, Intact, Normal Color, Warm Assessment and Plan - Assessment and Plan (Free Text) Assessment: Bacteremia * CXR 12/12 - heterogenous infiltrate at inferior Right and Mid/inferior left lung zones vs atelectasis with likely small left pleural effusion and Right central venous line terminating at the right atrium; Repeat CXR 12/13 shows right IJ central venous line with tip in the SVC after adjustment and right lower lobe opacity with improvement * Echo 12/12: Mobile density seen with high velocities across AV highly suspicious for AV endocarditis, transmitral doppler flow pattern is grade 1 ( abnormal relaxation pattern), LV and RV systolic function normal, EF = 60-65% * Blood cultures 12/12 - Gram positive cocci in chains (Strep mitis in final read ) * Urine culture 12/12 - no growth * Cont Zosyn 3.375 gm Q6H for now and d/c Vancomycin 1 gm Q12H (12/14) - ID recs (Uriel) * 12/13 Vanc trough: 6.4 * Tylenol 650 mg PO Q6 prn fever. Due to history of hepatitis, consider switching to a different agent at some point. * Patient seen at [facility] in 09/2016. Patient had TTE at that time which did NOT show vegetations on valve. Patient was also seen by psychiatry at that time as well as general surgery for abscess I&D. Will attempt to obtain patient's March [facility] medical records with information regarding valve surgery * Dr. Willson was contacted and agreed to see the patient on consult as long as Dr. Rushing (cardiology) accepts the transfer under his care * Waiting for call back from Dr. Rushing (who originally cared for the patient at [facility]) as to whether he will accept the patient * If not accepted, patient will need at least 6 weeks of antibiotics here Systolic ejection murmur * Likely 2/2 aortic valve replacement x2 * Echo 12/12 showed vegetations * Cardio consult on 12/14 (Dr. Leyva): does not recommend CASPER at this time * Positive blood culture for Strep mitis * Repeated BC (12/14) - no growth x 5 days; (12/16) - no growth x 5 days * Cont zosyn and d/c vanc per Dr. Trevino as stated above; F/U about abx coverage for strep mitis * Hx of IV drug use/porcine valve * CT surg consult (Dr. Peralta) - says should be followed up with surgeon who did original AV replacement (Dr. Willson) * See above * F/U Medical records from [facility] - call original surgeon for AV valve replacement and see if he would like to accept the patient at [facility] * CXR: Right-sided central venous catheter extends to the cavoatrial junction. Mild left basilar atelectasis/infiltrate and or small pleural effusion. Median sternotomy wires. Cardiomegaly. Low back pain * lumbar spine XR - No abnormalities seen * flexeril 5mg TID * MRI lumbar spine - No acute fracture, spondylolysis or spondylolisthesis. No evidence of discitis/osteomyelitis. Mild degenerative disc disease at L4-5 with a posterior disc bulge and superimposed right foraminal disc protrusion. Mild right neural foraminal stenosis. No central spinal canal stenosis. Note is made of splenomegaly, perisplenic and splenorenal arises in this patient with known hepatic cirrhosis. Left shoulder pain/weakness * 2/2 Hx of fall * Left shoulder XR (12/13) - no acute dislocation or fracture, soft tissues unremarkable Diarrhea * Stool Culture/O&P (12/12) - negative for O&P, salmonella, shigella, and campylobacter * Stool negative for leukocytes and occult blood (12/12) * Serum C. diff antigen and toxin negative (12/12) * Stool C diff (Neg) and repeat leukocytes (Neg) * stool culture 12/16 negative History of Seizures * Continue Keppra 500 mg PO BID * Continue Gabapentin 300 mg PO BID History of Depression * Continue Zoloft 50 mg PO daily History of Hepatitis B & C * Monitor LFTs. 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
[2016-12-23 07:26] LABS: BASO % 0.3 % (0.0-2.0); EOS % 0.2 % (0.0-4.0); HEMATOCRIT 28.3 % (35.0-51.0); LYMPH # 0.5 K/uL (1.0-4.3); LYMPH % 10.8 % (20.0-40.0); MEAN CELL VOLUME 79.1 fL (80.0-94.0); MEAN CORPUSCULAR HEMOGLOBIN 26.1 pg (27.0-31.0); MEAN PLATELET VOLUME 8.7 fL (7.2-11.7); MONO # 0.3 K/uL (0.0-0.8); MONO % 6.9 % (0.0-10.0); RED CELL DISTRIBUTION WIDTH 17.4 % (11.5-14.5); WHITE BLOOD COUNT 4.9 K/uL (4.8-10.8)
[2016-12-23 08:17] LABS: CHLORIDE 108 mmol/L (98-107); SODIUM 139 mmol/L (132-148)
[2016-12-23 08:18] LABS: POTASSIUM 3.7 mmol/L (3.6-5.2)
[2016-12-23 08:20] LABS: ALB/GLOB RATIO 0.9 (1.0-2.1); ALKALINE PHOSPHATASE 66 U/L (38-126); AST/SGOT 25 U/L (17-59); BILIRUBIN,TOTAL 0.5 mg/dL (0.2-1.3); BLOOD UREA NITROGEN 14 mg/dL (9-20); CARBON DIOXIDE 21 mmol/L (22-30); GFR AFRICAN-AMERICAN > 60; GLUCOSE,RANDOM 91 mg/dL (75-110); TOTAL PROTEIN 6.3 g/dL (6.3-8.3)
[2016-12-23 08:21] LABS: ALT/SGPT 31 U/L (21-72); CALCIUM 8.2 mg/dl (8.6-10.4); MAGNESIUM 1.5 mg/dL (1.6-2.3)
[2016-12-23] MEDS: Saccharomyces Boulardi 250 mg Cap PO SCH ×2 (09:07→17:08)
--- NOTE | 2016-12-23 18:59 | CARD ---
APPROVED REPORT EKG Measurement Heart [id number] <Conclusion> Normal sinus rhythm Prolonged QT Abnormal ECG
[2016-12-23] MEDS ORDERED: Alum-Mag Hydrox-Simethicone Susp (30 mL) PO ONE (20:59)
[2016-12-24 08:12] LABS: BASO % 0.4 % (0.0-2.0); EOS % 0.3 % (0.0-4.0); HEMATOCRIT 29.1 % (35.0-51.0); LYMPH # 0.6 K/uL (1.0-4.3); LYMPH % 12.5 % (20.0-40.0); MEAN CELL VOLUME 78.6 fL (80.0-94.0); MEAN CORPUSCULAR HEMOGLOBIN 26.1 pg (27.0-31.0); MEAN CORPUSCULAR HGB CONC 33.2 g/dL (33.0-37.0); MONO # 0.3 K/uL (0.0-0.8); MONO % 7.3 % (0.0-10.0); RED CELL DISTRIBUTION WIDTH 17.8 % (11.5-14.5); WHITE BLOOD COUNT 4.5 K/uL (4.8-10.8)
[2016-12-24 08:40] LABS: CHLORIDE 105 mmol/L (98-107)
[2016-12-24 08:41] LABS: POTASSIUM 4.6 mmol/L (3.6-5.2); SODIUM 140 mmol/L (132-148)
[2016-12-24 08:43] LABS: ALB/GLOB RATIO 0.9 (1.0-2.1); ALKALINE PHOSPHATASE 64 U/L (38-126); ALT/SGPT 34 U/L (21-72); AST/SGOT 31 U/L (17-59); BILIRUBIN,TOTAL 0.6 mg/dL (0.2-1.3); BLOOD UREA NITROGEN 12 mg/dL (9-20); CARBON DIOXIDE 24 mmol/L (22-30); GFR AFRICAN-AMERICAN > 60; GLUCOSE,RANDOM 78 mg/dL (75-110); TOTAL PROTEIN 6.6 g/dL (6.3-8.3)
[2016-12-24 08:44] LABS: MAGNESIUM 1.8 mg/dL (1.6-2.3)
[2016-12-24] MEDS: Saccharomyces Boulardi 250 mg Cap PO SCH ×2 (09:21→18:02)
[2016-12-24] MEDS: Piperacillin/Tazobact 3.375 GM in Sodium Chloride 100 ML IVPB SCH ×2 (10:30→18:03)
[2016-12-24] MEDS ORDERED: Simethicone 40 mg/0.6 ml Liquid (30 ml) PO ONE (12:15)
--- NOTE | 2016-12-24 16:16 | CP.PCM.PN ---
Subjective - Date & Time of Evaluation Date of Evaluation: 12/24/16 Time of Evaluation: 08:00 - Subjective Subjective: events noted iv rx in progress Objective - Vital Signs/Intake and Output Vital Signs (last 24 hours): Temp Pulse Resp BP Pulse Ox 99.5 F 102 H 20 128/74 97 12/24/16 15:24 12/24/16 15:24 12/24/16 15:24 12/24/16 15:24 12/24/16 15:24 Intake and Output: 12/24/16 12/24/16 06:59 18:59 Intake Total 550 700 Output Total 600 Balance -50 700 - Medications Medications: Current Medications Acetaminophen (Tylenol 325mg Tab) 650 mg PO Q6 PRN PRN Reason: Fever >100.4 F Last Admin: 12/14/16 19:03 Dose: 650 mg Benztropine Mesylate (Cogentin) 1 mg PO Q6 PRN PRN Reason: Other Last Admin: 12/07/16 10:00 Dose: 1 mg Clonidine HCl (Catapres) 0.1 mg PO Q8 PRN PRN Reason: COWS Score More or Equal to 5 Last Admin: 12/07/16 00:37 Dose: 0.1 mg Cyclobenzaprine HCl (Flexeril) 5 mg PO TID PRN PRN Reason: Muscle spasm Last Admin: 12/24/16 14:36 Dose: 5 mg Dicyclomine HCl (Bentyl) 20 mg PO Q8 PRN PRN Reason: ABDOMINAL PAIN Last Admin: 12/13/16 18:15 Dose: 20 mg Gabapentin (Neurontin) 300 mg PO BID [facility] Last Admin: 12/24/16 11:50 Dose: 300 mg Hydroxyzine HCl (Atarax) 50 mg PO Q6H PRN PRN Reason: Anxiety Last Admin: 12/24/16 09:21 Dose: 50 mg Piperacillin Sod/Tazobactam (Sod 3.375 gm/ Sodium Chloride) 100 mls @ 200 mls/ hr IVPB Q8H [facility] Last Admin: 12/24/16 10:30 Dose: 200 mls/hr Levetiracetam (Keppra) 500 mg PO BID [facility] Last Admin: 12/24/16 09:21 Dose: 500 mg Ondansetron HCl (Zofran Tab) 4 mg PO Q8 PRN PRN Reason: Nausea/Vomiting Last Admin: 12/11/16 20:00 Dose: 4 mg Saccharomyces Boulardii (Florastor) 250 mg PO BID [facility] Last Admin: 12/24/16 09:21 Dose: 250 mg Sertraline HCl (Zoloft) 50 mg PO DAILY [facility] Last Admin: 12/24/16 09:21 Dose: 50 mg Trazodone HCl (Desyrel) 100 mg PO HS [facility] Last Admin: 12/23/16 22:09 Dose: 100 mg - Labs Labs: 12/24/16 08:01 12/24/16 08:01 PT 14.2 SECONDS (9.7-12.2) H 12/12/16 07:08 INR 1.3 12/12/16 07:08 APTT 32 SECONDS (21-34) 12/12/16 07:08 - Constitutional Appears: Non-toxic, Chronically Ill - Head Exam Head Exam: NORMOCEPHALIC - Eye Exam Eye Exam: PERRL - ENT Exam ENT Exam: Mucous Membranes Dry - Neck Exam Neck Exam: absent: Lymphadenopathy - Respiratory Exam Respiratory Exam: Decreased Breath Sounds - Cardiovascular Exam Cardiovascular Exam: REGULAR RHYTHM - GI/Abdominal Exam GI & Abdominal Exam: Distended, Soft - Rectal Exam Rectal Exam: Deferred Assessment and Plan (1) Schizoaffective disorder Status: Acute (2) Alcohol abuse Status: Acute (3) Bipolar 1 disorder, depressed Status: Acute (4) Leucopenia Status: Acute (5) Pancytopenia Status: Acute (6) S/P aortic valve replacement Status: Acute
--- NOTE | 2016-12-24 19:11 | CP.PCM.PN ---
Subjective - Date & Time of Evaluation Date of Evaluation: 12/24/16 Time of Evaluation: 17:15 - Subjective Subjective: Hospitalist Progress Note Patient was seen and examined at 5:15 PM 12/24/16 46 year old male who has a long history of IV Heroine abuse who is currently being treated for Endocarditis. Currently upon FULL ROS Sleeping better NO chest pain/palpitations NO cough/wheezing NO abodminal pain NO n/v/d/c NO other complaints upon FULL ROS - Constitutional Appears: Non-toxic, No Acute Distress - Head Exam Head Exam: NORMAL INSPECTION - Eye Exam Eye Exam: EOMI - ENT Exam ENT Exam: Mucous Membranes Moist - Respiratory Exam Respiratory Exam: Clear to Ausculation Bilateral, NORMAL BREATHING PATTERN - Cardiovascular Exam Cardiovascular Exam: REGULAR RHYTHM, NS1 and NS2, Systolic Ejection Murmur heard in all of the auscultatory shen. - GI/Abdominal Exam GI & Abdominal Exam: Soft, Normal Bowel Sounds. absent: Distended, Tenderness - Extremities Exam Extremities Exam: Normal Inspection. absent: Calf Tenderness, Pedal Edema - Neurological Exam Neurological Exam: Alert, Awake - Psychiatric Exam Psychiatric exam: Normal Affect, Normal Mood - Skin Skin Exam: Dry, Intact, Normal Color, Warm Assessment and Plan - Assessment and Plan (Free Text) Assessment: Bacteremia * CXR 12/12 - heterogenous infiltrate at inferior Right and Mid/inferior left lung zones vs atelectasis with likely small left pleural effusion and Right central venous line terminating at the right atrium; Repeat CXR 12/13 shows right IJ central venous line with tip in the SVC after adjustment and right lower lobe opacity with improvement * Echo 12/12: Mobile density seen with high velocities across AV highly suspicious for AV endocarditis, transmitral doppler flow pattern is grade 1 ( abnormal relaxation pattern), LV and RV systolic function normal, EF = 60-65% * Blood cultures 12/12 - Gram positive cocci in chains (Strep mitis in final read ) * Urine culture 12/12 - no growth * Cont Zosyn 3.375 gm Q6H for now and d/c Vancomycin 1 gm Q12H (12/14) - ID recs ([facility]) * 12/13 Vanc trough: 6.4 * Tylenol 650 mg PO Q6 prn fever. Due to history of hepatitis, consider switching to a different agent at some point. * Patient seen at [facility] in 09/2016. Patient had TTE at that time which did NOT show vegetations on valve. Patient was also seen by psychiatry at that time as well as general surgery for abscess I&D. Will attempt to obtain patient's March [facility] medical records with information regarding valve surgery * Dr. Willson was contacted and agreed to see the patient on consult as long as Dr. Rushing (cardiology) accepts the transfer under his care * Waiting for call back from Dr. Rushing (who originally cared for the patient at [facility]) as to whether he will accept the patient * If not accepted, patient will need at least 6 weeks of antibiotics here Systolic ejection murmur * Likely 2/2 aortic valve replacement x2 * Echo 12/12 showed vegetations * Cardio consult on 12/14 (Dr. Leyva): does not recommend CASPER at this time * Positive blood culture for Strep mitis * Repeated BC (12/14) - no growth x 5 days; (12/16) - no growth x 5 days * Cont zosyn and d/c vanc per Dr. Trevino as stated above; F/U about abx coverage for strep mitis * Hx of IV drug use/porcine valve * CT surg consult (Dr. Peralta) - says should be followed up with surgeon who did original AV replacement (Dr. Willson) * See above * F/U Medical records from [facility] - call original surgeon for AV valve replacement and see if he would like to accept the patient at [facility] * CXR: Right-sided central venous catheter extends to the cavoatrial junction. Mild left basilar atelectasis/infiltrate and or small pleural effusion. Median sternotomy wires. Cardiomegaly. Low back pain * lumbar spine XR - No abnormalities seen * flexeril 5mg TID * MRI lumbar spine - No acute fracture, spondylolysis or spondylolisthesis. No evidence of discitis/osteomyelitis. Mild degenerative disc disease at L4-5 with a posterior disc bulge and superimposed right foraminal disc protrusion. Mild right neural foraminal stenosis. No central spinal canal stenosis. Note is made of splenomegaly, perisplenic and splenorenal arises in this patient with known hepatic cirrhosis. Left shoulder pain/weakness * 2/2 Hx of fall * Left shoulder XR (12/13) - no acute dislocation or fracture, soft tissues unremarkable Diarrhea * Stool Culture/O&P (12/12) - negative for O&P, salmonella, shigella, and campylobacter * Stool negative for leukocytes and occult blood (12/12) * Serum C. diff antigen and toxin negative (12/12) * Stool C diff (Neg) and repeat leukocytes (Neg) * stool culture 12/16 negative History of Seizures * Continue Keppra 500 mg PO BID * Continue Gabapentin 300 mg PO BID History of Depression * Continue Zoloft 50 mg PO daily History of Hepatitis B & C * Monitor LFTs. 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 admission * On old admission growth factors like Neupogen (Filgrastim) were recommended for low WBC * Heme/Onc consulted ([facility]) - recs against IV iron supplementation at this time until infection resolves, transfusion support prn, plans to review peripheral smear, BM evaluation if counts do not return to baseline * HIV 1&2 Ab screen negative * Stool negative for occult blood Prophylactic Measure * Heparin and GI ppx held due to platelets * SCDs for now Objective - Vital Signs/Intake and Output Vital Signs (last 24 hours): Temp Pulse Resp BP Pulse Ox 99.5 F 107 H 20 128/74 97 12/24/16 15:24 12/24/16 15:30 12/24/16 15:24 12/24/16 15:24 12/24/16 15:24 Intake and Output: 12/24/16 12/25/16 18:59 06:59 Intake Total 700 Balance 700 - Medications Medications: Current Medications Acetaminophen (Tylenol 325mg Tab) 650 mg PO Q6 PRN PRN Reason: Fever >100.4 F Last Admin: 12/14/16 19:03 Dose: 650 mg Benztropine Mesylate (Cogentin) 1 mg PO Q6 PRN PRN Reason: Other Last Admin: 12/07/16 10:00 Dose: 1 mg Clonidine HCl (Catapres) 0.1 mg PO Q8 PRN PRN Reason: COWS Score More or Equal to 5 Last Admin: 12/07/16 00:37 Dose: 0.1 mg Cyclobenzaprine HCl (Flexeril) 5 mg PO TID PRN PRN Reason: Muscle spasm Last Admin: 12/24/16 14:36 Dose: 5 mg Dicyclomine HCl (Bentyl) 20 mg PO Q8 PRN PRN Reason: ABDOMINAL PAIN Last Admin: 12/13/16 18:15 Dose: 20 mg Gabapentin (Neurontin) 300 mg PO BID [facility] Last Admin: 12/24/16 18:02 Dose: 300 mg Hydroxyzine HCl (Atarax) 50 mg PO Q6H PRN PRN Reason: Anxiety Last Admin: 12/24/16 09:21 Dose: 50 mg Piperacillin Sod/Tazobactam (Sod 3.375 gm/ Sodium Chloride) 100 mls @ 200 mls/ hr IVPB Q8H [facility] Last Admin: 12/24/16 18:03 Dose: 200 mls/hr Levetiracetam (Keppra) 500 mg PO BID [facility] Last Admin: 12/24/16 18:02 Dose: 500 mg Ondansetron HCl (Zofran Tab) 4 mg PO Q8 PRN PRN Reason: Nausea/Vomiting Last Admin: 12/11/16 20:00 Dose: 4 mg Saccharomyces Boulardii (Florastor) 250 mg PO BID [facility] Last Admin: 12/24/16 18:02 Dose: 250 mg Sertraline HCl (Zoloft) 50 mg PO DAILY [facility] Last Admin: 12/24/16 09:21 Dose: 50 mg Trazodone HCl (Desyrel) 100 mg PO HS [facility] Last Admin: 12/23/16 22:09 Dose: 100 mg - Labs Labs: 12/24/16 08:01 12/24/16 08:01 PT 14.2 SECONDS (9.7-12.2) H 12/12/16 07:08 INR 1.3 12/12/16 07:08 APTT 32 SECONDS (21-34) 12/12/16 07:08
[2016-12-24] MEDS ORDERED: Piperacillin/Tazobact 3.375 GM in Sodium Chloride 100 ML IVPB SCH (20:00)
[2016-12-25] MEDS: Piperacill/Tazo 3.375gm in Dex 3.375 GM/50 ML BAG IVPB SCH ×4 (00:43→18:06)
[2016-12-25] MEDS ORDERED: Aluminum Hydroxide/Magnesium Hydroxide Susp (30 mL) PO ONE (00:50)
[2016-12-25] MEDS: Saccharomyces Boulardi 250 mg Cap PO SCH ×2 (09:20→18:04)
--- NOTE | 2016-12-25 09:38 | CP.PCM.PN ---
Subjective - Date & Time of Evaluation Date of Evaluation: 12/25/16 Time of Evaluation: 09:20 - Subjective Subjective: Hospitalist Progress Note Patient was seen and examined at 9:20 AM 12/25/16 46 year old male who has a long history of IV Heroine abuse who is currently being treated for Endocarditis. Currently upon FULL ROS Sleeping better NO chest pain/palpitations NO cough/wheezing Complains of some bloating sensation mid left quadrant to ubilicus: had two soft bowel movements this morning NO n/v/d/c NO other complaints upon FULL ROS - Constitutional Appears: Non-toxic, No Acute Distress - Head Exam Head Exam: NORMAL INSPECTION - Eye Exam Eye Exam: EOMI - ENT Exam ENT Exam: Mucous Membranes Moist - Respiratory Exam Respiratory Exam: Clear to Ausculation Bilateral, NORMAL BREATHING PATTERN - Cardiovascular Exam Cardiovascular Exam: REGULAR RHYTHM, NS1 and S2 Click, Holosystolic Murmur heard in all of the auscultatory shen. - GI/Abdominal Exam GI & Abdominal Exam: Soft, Normal Bowel Sounds, There is NO distention, NO tenderness to deep palpation, NO guarding/rebound tenderness, NO discomfort noted during entire abdominal exam - Extremities Exam Extremities Exam: Normal Inspection. absent: Calf Tenderness, Pedal Edema - Neurological Exam Neurological Exam: Alert, Awake - Psychiatric Exam Psychiatric exam: Normal Affect, Normal Mood - Skin Skin Exam: Dry, Intact, Normal Color, Warm Assessment and Plan - Assessment and Plan (Free Text) Assessment: Bacteremia * CXR 12/12 - heterogenous infiltrate at inferior Right and Mid/inferior left lung zones vs atelectasis with likely small left pleural effusion and Right central venous line terminating at the right atrium; Repeat CXR 12/13 shows right IJ central venous line with tip in the SVC after adjustment and right lower lobe opacity with improvement * Echo 12/12: Mobile density seen with high velocities across AV highly suspicious for AV endocarditis, transmitral doppler flow pattern is grade 1 ( abnormal relaxation pattern), LV and RV systolic function normal, EF = 60-65% * Blood cultures 12/12 - Gram positive cocci in chains (Strep mitis in final read ) * Urine culture 12/12 - no growth * Cont Zosyn 3.375 gm Q6H for now and d/c Vancomycin 1 gm Q12H (12/14) - ID recs ([facility]) * 8/28 Vanc trough: 6.4 * Tylenol 650 mg PO Q6 prn fever. Due to history of hepatitis, consider switching to a different agent at some point. * Patient seen at [facility] in 09/2016. Patient had TTE at that time which did NOT show vegetations on valve. Patient was also seen by psychiatry at that time as well as general surgery for abscess I&D. Will attempt to obtain patient's March [facility] medical records with information regarding valve surgery * Dr. Willson was contacted and agreed to see the patient on consult as long as Dr. Rushing (cardiology) accepts the transfer under his care * Still waiting for call back from Dr. Rushing (who originally cared for the patient at [facility]) as to whether he will accept the patient * If not accepted, patient will need at least 6 weeks of antibiotics here Systolic ejection murmur * Likely 2/2 aortic valve replacement x2 * Echo 12/12 showed vegetations * Cardio consult on 12/14 (Dr. Leyva): does not recommend CASPER at this time * Positive blood culture for Strep mitis (12/12/16) * Repeat Blood Cultures 12/14/16 and 12/16/16 showed NO growth at 5 days * Cont zosyn and d/c vanc per Dr. Trevino as stated above; F/U about abx coverage for strep mitis * Hx of IV drug use/porcine valve * CT surg consult (Dr. Peralta) - says should be followed up with surgeon who did original AV replacement (Dr. Willson) * See above * F/U Medical records from [facility] - call original surgeon for AV valve replacement and see if he would like to accept the patient at [facility] * CXR: Right-sided central venous catheter extends to the cavoatrial junction. Mild left basilar atelectasis/infiltrate and or small pleural effusion. Median sternotomy wires. Cardiomegaly. Low back pain * lumbar spine XR - No abnormalities seen * flexeril 5mg TID * MRI lumbar spine - No acute fracture, spondylolysis or spondylolisthesis. No evidence of discitis/osteomyelitis. Mild degenerative disc disease at L4-5 with a posterior disc bulge and superimposed right foraminal disc protrusion. Mild right neural foraminal stenosis. No central spinal canal stenosis. Note is made of splenomegaly, perisplenic and splenorenal arises in this patient with known hepatic cirrhosis. Left shoulder pain/weakness * 2/2 Hx of fall * Left shoulder XR (12/13) - no acute dislocation or fracture, soft tissues unremarkable Diarrhea * Stool Culture/O&P (12/12) - negative for O&P, salmonella, shigella, and campylobacter * Stool negative for leukocytes and occult blood (12/12) * Serum C. diff antigen and toxin negative (12/12) * Stool C diff (Neg) and repeat leukocytes (Neg) * stool culture 12/16 negative * Patient is currently having soft bowel movements History of Seizures * Continue Keppra 500 mg PO BID * Continue Gabapentin 300 mg PO BID History of Depression * Continue Zoloft 50 mg PO daily History of Hepatitis B & C * Monitor LFTs. 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 * On old admission growth factors like Neupogen (Filgrastim) were recommended for low WBC * Heme/Onc consulted ([facility]) - recs against IV iron supplementation at this time until infection resolves, transfusion support prn, plans to review peripheral smear, BM evaluation if counts do not return to baseline * HIV 1&2 Ab screen negative * Stool negative for occult blood Prophylactic Measure * Heparin and GI ppx held due to platelets * SCDs for now * Patient has been getting up every 2 hours and performing 10 laps around the floor * Maalox 30 ml PO once a day PRN indigestion Dane Machado D.O. Objective - Vital Signs/Intake and Output Vital Signs (last 24 hours): Temp Pulse Resp BP Pulse Ox 98.5 F 104 H 20 141/101 H 97 12/25/16 07:00 12/25/16 07:00 12/25/16 07:00 12/25/16 07:00 12/25/16 07:00 Intake and Output: 12/25/16 12/25/16 06:59 18:59 Intake Total 340 Output Total 400 Balance -60 - Medications Medications: Current Medications Acetaminophen (Tylenol 325mg Tab) 650 mg PO Q6 PRN PRN Reason: Fever >100.4 F Last Admin: 12/14/16 19:03 Dose: 650 mg Al Hydrox/Mg Hydrox/Simethicone (Maalox 30 Ml) 30 ml PO DAILY [facility] Benztropine Mesylate (Cogentin) 1 mg PO Q6 PRN PRN Reason: Other Last Admin: 12/07/16 10:00 Dose: 1 mg Clonidine HCl (Catapres) 0.1 mg PO Q8 PRN PRN Reason: COWS Score More or Equal to 5 Last Admin: 12/07/16 00:37 Dose: 0.1 mg Cyclobenzaprine HCl (Flexeril) 5 mg PO TID PRN PRN Reason: Muscle spasm Last Admin: 12/25/16 09:33 Dose: 5 mg Dicyclomine HCl (Bentyl) 20 mg PO Q8 PRN PRN Reason: ABDOMINAL PAIN Last Admin: 12/24/16 22:17 Dose: 20 mg Gabapentin (Neurontin) 300 mg PO BID [facility] Last Admin: 12/25/16 09:20 Dose: 300 mg Hydroxyzine HCl (Atarax) 50 mg PO Q6H PRN PRN Reason: Anxiety Last Admin: 12/24/16 09:21 Dose: 50 mg Piperacillin Sod/Tazobactam Sod (Zosyn 3.375 Gm Iv Premix) 3.375 gm in 50 mls @ 100 mls/hr IVPB Q6 [facility] Last Admin: 12/25/16 05:43 Dose: 100 mls/hr Levetiracetam (Keppra) 500 mg PO BID [facility] Last Admin: 12/25/16 09:20 Dose: 500 mg Ondansetron HCl (Zofran Tab) 4 mg PO Q8 PRN PRN Reason: Nausea/Vomiting Last Admin: 12/11/16 20:00 Dose: 4 mg Saccharomyces Boulardii (Florastor) 250 mg PO BID [facility] Last Admin: 12/25/16 09:20 Dose: 250 mg Sertraline HCl (Zoloft) 50 mg PO DAILY [facility] Last Admin: 12/25/16 09:20 Dose: 50 mg Trazodone HCl (Desyrel) 100 mg PO HS [facility] Last Admin: 12/24/16 22:17 Dose: 100 mg - Labs Labs: 12/24/16 08:01 12/24/16 08:01 PT 14.2 SECONDS (9.7-12.2) H 12/12/16 07:08 INR 1.3 12/12/16 07:08 APTT 32 SECONDS (21-34) 12/12/16 07:08
[2016-12-25] MEDS: Aluminum Hydroxide/Magnesium Hydroxide Susp (30 mL) PO SCH (09:41)
[2016-12-26] MEDS: Piperacill/Tazo 3.375gm in Dex 3.375 GM/50 ML BAG IVPB SCH ×4 (00:18→17:59)
--- NOTE | 2016-12-26 02:27 | CP.PCM.PN ---
<Eliana Stewart - Last Filed: 12/26/16 02:25> Subjective - Date & Time of Evaluation Date of Evaluation: 12/26/16 Time of Evaluation: 02:25 - Subjective Subjective: Pt S&E at bedside. Patient doing well with no new complaints at this time. Pt still having some difficulty sleeping and some low back pain that is controlled with flexeril. Patient denies diarrhea today. Pt also denies F/C, CP/SOB, AP/N/ V. Objective - Vital Signs/Intake and Output Vital Signs (last 24 hours): Temp Pulse Resp BP Pulse Ox 98.9 F 108 H 20 140/82 95 12/25/16 23:50 12/26/16 00:23 12/25/16 23:50 12/25/16 23:50 12/25/16 23:50 Intake and Output: 12/25/16 12/26/16 18:59 06:59 Intake Total 1150 Output Total 650 Balance 1150 -650 - Medications Medications: Current Medications Acetaminophen (Tylenol 325mg Tab) 650 mg PO Q6 PRN PRN Reason: Fever >100.4 F Last Admin: 12/14/16 19:03 Dose: 650 mg Al Hydrox/Mg Hydrox/Simethicone (Maalox 30 Ml) 30 ml PO DAILY CORNEL Last Admin: 12/25/16 09:41 Dose: 30 ml Benztropine Mesylate (Cogentin) 1 mg PO Q6 PRN PRN Reason: Other Last Admin: 12/07/16 10:00 Dose: 1 mg Clonidine HCl (Catapres) 0.1 mg PO Q8 PRN PRN Reason: COWS Score More or Equal to 5 Last Admin: 12/07/16 00:37 Dose: 0.1 mg Cyclobenzaprine HCl (Flexeril) 5 mg PO TID PRN PRN Reason: Muscle spasm Last Admin: 12/25/16 20:39 Dose: 5 mg Dicyclomine HCl (Bentyl) 20 mg PO Q8 PRN PRN Reason: ABDOMINAL PAIN Last Admin: 12/24/16 22:17 Dose: 20 mg Gabapentin (Neurontin) 300 mg PO BID CORNEL Last Admin: 12/25/16 18:04 Dose: 300 mg Hydroxyzine HCl (Atarax) 50 mg PO Q6H PRN PRN Reason: Anxiety Last Admin: 12/25/16 15:28 Dose: 50 mg Piperacillin Sod/Tazobactam Sod (Zosyn 3.375 Gm Iv Premix) 3.375 gm in 50 mls @ 100 mls/hr IVPB Q6 [facility] Last Admin: 12/26/16 00:18 Dose: 100 mls/hr Levetiracetam (Keppra) 500 mg PO BID [facility] Last Admin: 12/25/16 18:04 Dose: 500 mg Ondansetron HCl (Zofran Tab) 4 mg PO Q8 PRN PRN Reason: Nausea/Vomiting Last Admin: 12/25/16 13:10 Dose: 4 mg Saccharomyces Boulardii (Florastor) 250 mg PO BID [facility] Last Admin: 12/25/16 18:04 Dose: 250 mg Sertraline HCl (Zoloft) 50 mg PO DAILY [facility] Last Admin: 12/25/16 09:20 Dose: 50 mg Trazodone HCl (Desyrel) 100 mg PO HS [facility] Last Admin: 12/25/16 21:16 Dose: 100 mg - Labs Labs: 12/24/16 08:01 12/24/16 08:01 PT 14.2 SECONDS (9.7-12.2) H 12/12/16 07:08 INR 1.3 12/12/16 07:08 APTT 32 SECONDS (21-34) 12/12/16 07:08 - Constitutional Appears: Non-toxic, No Acute Distress - Head Exam Head Exam: NORMAL INSPECTION - Eye Exam Eye Exam: EOMI - ENT Exam ENT Exam: Mucous Membranes Moist - Respiratory Exam Respiratory Exam: Clear to Ausculation Bilateral, NORMAL BREATHING PATTERN - Cardiovascular Exam Cardiovascular Exam: REGULAR RHYTHM, Murmur (Holosystolic ) - GI/Abdominal Exam GI & Abdominal Exam: Soft, Normal Bowel Sounds. absent: Distended, Tenderness - Back Exam Back Exam: NORMAL INSPECTION - Neurological Exam Neurological Exam: Alert, Awake, Oriented x3 - Psychiatric Exam Psychiatric exam: Normal Affect, Normal Mood - Skin Skin Exam: Dry, Intact, Normal Color, Warm Assessment and Plan - Assessment and Plan (Free Text) Assessment: Bacteremia * CXR 12/12 - heterogenous infiltrate at inferior Right and Mid/inferior left lung zones vs atelectasis with likely small left pleural effusion and Right central venous line terminating at the right atrium; Repeat CXR 12/13 shows right IJ central venous line with tip in the SVC after adjustment and right lower lobe opacity with improvement * Echo 12/12: Mobile density seen with high velocities across AV highly suspicious for AV endocarditis, transmitral doppler flow pattern is grade 1 ( abnormal relaxation pattern), LV and RV systolic function normal, EF = 60-65% * Blood cultures 12/12 - Gram positive cocci in chains (Strep mitis in final read ) * Urine culture 12/12 - no growth * Cont Zosyn 3.375 gm Q6H for now and d/c Vancomycin 1 gm Q12H (12/14) - ID recs (Uriel) * 12/13 Vanc trough: 6.4 * Tylenol 650 mg PO Q6 prn fever. Due to history of hepatitis, consider switching to a different agent at some point. * Patient seen at [facility] in 09/2016. Patient had TTE at that time which did NOT show vegetations on valve. Patient was also seen by psychiatry at that time as well as general surgery for abscess I&D. Will attempt to obtain patient's March [facility] medical records with information regarding valve surgery * Dr. Willson was contacted and agreed to see the patient on consult as long as Dr. Rushing (cardiology) accepts the transfer under his care * Still waiting for call back from Dr. Rushing (who originally cared for the patient at [facility]) as to whether he will accept the patient * If not accepted, patient will need at least 6 weeks of antibiotics here Systolic ejection murmur * Likely 2/2 aortic valve replacement x2 * Echo 12/12 showed vegetations * Cardio consult on 12/14 (Dr. Leyva): does not recommend CASPER at this time * Positive blood culture for Strep mitis (12/12/16) * Repeat Blood Cultures 12/14/16 and 12/16/16 showed NO growth at 5 days * Cont zosyn and d/c vanc per Dr. Trevino as stated above; F/U about abx coverage for strep mitis * Hx of IV drug use/porcine valve * CT surg consult (Dr. Peralta) - says should be followed up with surgeon who did original AV replacement (Dr. Willson) * See above * F/U Medical records from [facility] - call original surgeon for AV valve replacement and see if he would like to accept the patient at [facility] * CXR: Right-sided central venous catheter extends to the cavoatrial junction. Mild left basilar atelectasis/infiltrate and or small pleural effusion. Median sternotomy wires. Cardiomegaly. Low back pain * lumbar spine XR - No abnormalities seen * flexeril 5mg TID * MRI lumbar spine - No acute fracture, spondylolysis or spondylolisthesis. No evidence of discitis/osteomyelitis. Mild degenerative disc disease at L4-5 with a posterior disc bulge and superimposed right foraminal disc protrusion. Mild right neural foraminal stenosis. No central spinal canal stenosis. Note is made of splenomegaly, perisplenic and splenorenal arises in this patient with known hepatic cirrhosis. Left shoulder pain/weakness * 2/2 Hx of fall * Left shoulder XR (12/13) - no acute dislocation or fracture, soft tissues unremarkable Diarrhea * Stool Culture/O&P (12/12) - negative for O&P, salmonella, shigella, and campylobacter * Stool negative for leukocytes and occult blood (12/12) * Serum C. diff antigen and toxin negative (12/12) * Stool C diff (Neg) and repeat leukocytes (Neg) * stool culture 12/16 negative * Patient is currently having soft bowel movements History of Seizures * Continue Keppra 500 mg PO BID * Continue Gabapentin 300 mg PO BID History of Depression * Continue Zoloft 50 mg PO daily History of Hepatitis B & C * Monitor LFTs. 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 * On old admission growth factors like Neupogen (Filgrastim) were recommended for low WBC * Heme/Onc consulted (Alyx) - recs against IV iron supplementation at this time until infection resolves, transfusion support prn, plans to review peripheral smear, BM evaluation if counts do not return to baseline * HIV 1&2 Ab screen negative * Stool negative for occult blood Prophylactic Measure * Heparin and GI ppx held due to platelets * SCDs for now * Patient has been getting up every 2 hours and performing 10 laps around the floor * Maalox 30 ml PO once a day PRN indigestion <Dane Machado - Last Filed: 12/26/16 17:10> Objective - Vital Signs/Intake and Output Vital Signs (last 24 hours): Temp Pulse Resp BP Pulse Ox 98.8 F 105 H 20 153/96 H 96 12/26/16 08:15 12/26/16 15:30 12/26/16 08:15 12/26/16 08:15 12/26/16 08:15 Intake and Output: 12/26/16 12/26/16 06:59 18:59 Intake Total 340 Output Total 654 Balance -314 - Medications Medications: Current Medications Acetaminophen (Tylenol 325mg Tab) 650 mg PO Q6 PRN PRN Reason: Fever >100.4 F Last Admin: 12/14/16 19:03 Dose: 650 mg Al Hydrox/Mg Hydrox/Simethicone (Maalox 30 Ml) 30 ml PO DAILY [facility] Last Admin: 12/26/16 09:42 Dose: 30 ml Benztropine Mesylate (Cogentin) 1 mg PO Q6 PRN PRN Reason: Other Last Admin: 12/07/16 10:00 Dose: 1 mg Clonidine HCl (Catapres) 0.1 mg PO Q8 PRN PRN Reason: COWS Score More or Equal to 5 Last Admin: 12/07/16 00:37 Dose: 0.1 mg Cyclobenzaprine HCl (Flexeril) 5 mg PO Q8H PRN PRN Reason: Muscle spasm Last Admin: 12/26/16 13:40 Dose: 5 mg Dicyclomine HCl (Bentyl) 20 mg PO Q8 PRN PRN Reason: ABDOMINAL PAIN Last Admin: 12/26/16 09:41 Dose: 20 mg Gabapentin (Neurontin) 300 mg PO BID [facility] Last Admin: 12/26/16 09:42 Dose: 300 mg Hydroxyzine HCl (Atarax) 50 mg PO Q6H PRN PRN Reason: Anxiety Last Admin: 12/25/16 15:28 Dose: 50 mg Piperacillin Sod/Tazobactam Sod (Zosyn 3.375 Gm Iv Premix) 3.375 gm in 50 mls @ 100 mls/hr IVPB Q6 [facility] Last Admin: 12/26/16 11:02 Dose: 100 mls/hr Levetiracetam (Keppra) 500 mg PO BID [facility] Last Admin: 12/26/16 09:42 Dose: 500 mg Metoprolol Tartrate (Lopressor) 25 mg PO BID [facility] Ondansetron HCl (Zofran Tab) 4 mg PO Q8 PRN PRN Reason: Nausea/Vomiting Last Admin: 12/25/16 13:10 Dose: 4 mg Potassium Chloride (K-Dur 20 Meq Er Tab) 40 meq PO DAILY [facility] Last Admin: 12/26/16 13:40 Dose: 40 meq Saccharomyces Boulardii (Florastor) 250 mg PO BID [facility] Last Admin: 12/26/16 09:42 Dose: 250 mg Sertraline HCl (Zoloft) 50 mg PO DAILY [facility] Last Admin: 12/26/16 09:42 Dose: 50 mg Trazodone HCl (Desyrel) 100 mg PO HS [facility] Last Admin: 12/25/16 21:16 Dose: 100 mg - Labs Labs: 12/26/16 07:16 12/26/16 07:16 PT 14.2 SECONDS (9.7-12.2) H 12/12/16 07:08 INR 1.3 12/12/16 07:08 APTT 32 SECONDS (21-34) 12/12/16 07:08 Attending/Attestation - Attestation I have personally seen and examined this patient.: Yes I have fully participated in the care of the patient.: Yes I have reviewed all pertinent clinical information, including history, physical exam and plan: Yes Notes (Text): 12/26/16 16:52 Hospitalist Progress Note Patient was seen and examined at 2:00 PM 12/26/16 46 year old male who has a long history of IV Heroine abuse who is currently being treated for Endocarditis. Currently upon FULL ROS Sleeping better NO chest pain/palpitations NO cough/wheezing Complains of some bloating sensation mid left quadrant to ubilicus: had two soft bowel movements this morning Patient also complains of back pain on the left lumbar area: please note that the patient on multiple occasions has been noted to have the head of the bed at 90 degrees and he is laying in bed with his head up against the head of the bed with the his cervical neck and upper thoracic back flexed. I asked him if he felt that this was a comfortable position to which he answered "no". I asked him to stop doing this and perhaps his low back pain would improved by also getting up and walking the floor for 30 minutes every 2 hours. He expressed understanding NO n/v/d/c: states that he has not had a bowel movement since 12/25/16 and is feeling a little "bloated" NO other complaints upon FULL ROS - Constitutional Appears: Non-toxic, No Acute Distress - Head Exam Head Exam: NORMAL INSPECTION - Eye Exam Eye Exam: EOMI - ENT Exam ENT Exam: Mucous Membranes Moist - Respiratory Exam Respiratory Exam: Clear to Ausculation Bilateral, NORMAL BREATHING PATTERN - Cardiovascular Exam Cardiovascular Exam: REGULAR RHYTHM, NS1 and S2 Click, Holosystolic Murmur heard in all of the auscultatory shen. - GI/Abdominal Exam GI & Abdominal Exam: Soft, Normal Bowel Sounds, There is NO distention, NO tenderness to deep palpation, NO guarding/rebound tenderness, NO discomfort noted during entire abdominal exam - Extremities Exam Extremities Exam: Normal Inspection. absent: Calf Tenderness, Pedal Edema - Neurological Exam Neurological Exam: Alert, Awake - Psychiatric Exam Psychiatric exam: Normal Affect, Normal Mood - Skin Skin Exam: Dry, Intact, Normal Color, Warm Assessment and Plan - Assessment and Plan (Free Text) Assessment: Bacteremia * CXR 12/12 - heterogenous infiltrate at inferior Right and Mid/inferior left lung zones vs atelectasis with likely small left pleural effusion and Right central venous line terminating at the right atrium; Repeat CXR 12/13 shows right IJ central venous line with tip in the SVC after adjustment and right lower lobe opacity with improvement * Echo 12/12: Mobile density seen with high velocities across AV highly suspicious for AV endocarditis, transmitral doppler flow pattern is grade 1 ( abnormal relaxation pattern), LV and RV systolic function normal, EF = 60-65% * Blood cultures 12/12 - Gram positive cocci in chains (Strep mitis in final read ) * Urine culture 12/12 - no growth * Cont Zosyn 3.375 gm Q6H for now and d/c Vancomycin 1 gm Q12H (12/14) - ID recs (Mangia) * 12/13 Vanc trough: 6.4 * Tylenol 650 mg PO Q6 prn fever. Due to history of hepatitis, consider switching to a different agent at some point. * Patient seen at [facility] in 09/2016. Patient had TTE at that time which did NOT show vegetations on valve. Patient was also seen by psychiatry at that time as well as general surgery for abscess I&D. Will attempt to obtain patient's March [facility] medical records with information regarding valve surgery * Dr. Willson was contacted and agreed to see the patient on consult as long as Dr. Rushing (cardiology) accepts the transfer under his care * Still waiting for call back from Dr. Rushing (who originally cared for the patient at [facility]) as to whether he will accept the patient. If there is no call back by end of day Tuesday12/27/16, Medicine Team please try again. * If not accepted, patient will need at least 6 weeks of antibiotics here. I have explained to the patient that this will likely be the case considering his continued use of Heroine even after the valve replacement. Systolic ejection murmur * Likely 2/2 aortic valve replacement x2 * Echo 12/12 showed vegetations * Cardio consult on 12/14 (Dr. Leyva): does not recommend CASPER at this time * Positive blood culture for Strep mitis (12/12/16) * Repeat Blood Cultures 12/14/16 and 12/16/16 showed NO growth at 5 days * Cont zosyn and d/c vanc per Dr. Trevino as stated above; F/U about abx coverage for strep mitis * Hx of IV drug use/porcine valve * CT surg consult (Dr. Peralta) - says should be followed up with surgeon who did original AV replacement (Dr. Willson) * See above * F/U Medical records from [facility] - call original surgeon for AV valve replacement and see if he would like to accept the patient at [facility] * CXR: Right-sided central venous catheter extends to the cavoatrial junction. Mild left basilar atelectasis/infiltrate and or small pleural effusion. Median sternotomy wires. Cardiomegaly. HTN * Metoprolol Tartrate 25 mg PO BID started 12/27/16 Low back pain * lumbar spine XR - No abnormalities seen * flexeril 5mg TID * MRI lumbar spine - No acute fracture, spondylolysis or spondylolisthesis. No evidence of discitis/osteomyelitis. Mild degenerative disc disease at L4-5 with a posterior disc bulge and superimposed right foraminal disc protrusion. Mild right neural foraminal stenosis. No central spinal canal stenosis. Note is made of splenomegaly, perisplenic and splenorenal arises in this patient with known hepatic cirrhosis. Left shoulder pain/weakness * 2/2 Hx of fall * Left shoulder XR (12/13) - no acute dislocation or fracture, soft tissues unremarkable Diarrhea * Stool Culture/O&P (12/12) - negative for O&P, salmonella, shigella, and campylobacter * Stool negative for leukocytes and occult blood (12/12) * Serum C. diff antigen and toxin negative (12/12) * Stool C diff (Neg) and repeat leukocytes (Neg) * stool culture 12/16 negative * Patient is currently having soft bowel movements History of Seizures * Continue Keppra 500 mg PO BID * Continue Gabapentin 300 mg PO BID History of Depression * Continue Zoloft 50 mg PO daily History of Hepatitis B & C * Monitor LFTs. 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 * On old admission growth factors like Neupogen (Filgrastim) were recommended for low WBC * Heme/Onc consulted (Alyx) - recs against IV iron supplementation at this time until infection resolves, transfusion support prn, plans to review peripheral smear, BM evaluation if counts do not return to baseline * HIV 1&2 Ab screen negative * Stool negative for occult blood Prophylactic Measure * Heparin and GI ppx held due to platelets * SCDs for now * Patient has been getting up every 2 hours and performing 10 laps around the floor * Maalox 30 ml PO once a day PRN indigestion KCl 40 mEQ x 1 dose given 12/26/16 Dulcolax 5 ml PO x 1 dose given 12/26/16 Dane Machado D.O. 12/26/16 17:09
[2016-12-26 07:23] LABS: BASO % 0.4 % (0.0-2.0); EOS % 0.5 % (0.0-4.0); HEMATOCRIT 29.4 % (35.0-51.0); LYMPH # 0.4 K/uL (1.0-4.3); LYMPH % 9.4 % (20.0-40.0); MEAN CELL VOLUME 77.8 fL (80.0-94.0); MEAN CORPUSCULAR HEMOGLOBIN 25.9 pg (27.0-31.0); MEAN CORPUSCULAR HGB CONC 33.4 g/dL (33.0-37.0); MEAN PLATELET VOLUME 7.4 fL (7.2-11.7); MONO # 0.4 K/uL (0.0-0.8); MONO % 9.8 % (0.0-10.0); PLATELET COUNT 94 K/uL (130-400); RED CELL DISTRIBUTION WIDTH 18.2 % (11.5-14.5); WHITE BLOOD COUNT 4.6 K/uL (4.8-10.8)
[2016-12-26 08:10] LABS: BLOOD UREA NITROGEN 11 mg/dL (9-20); CALCIUM 8.7 mg/dl (8.6-10.4); CARBON DIOXIDE 27 mmol/L (22-30); CHLORIDE 100 mmol/L (98-107); GFR AFRICAN-AMERICAN > 60; GLUCOSE,RANDOM 112 mg/dL (75-110); MAGNESIUM 1.7 mg/dL (1.6-2.3); PHOSPHOROUS 3.4 mg/dL (2.5-4.5); POTASSIUM 3.5 mmol/L (3.6-5.2); SODIUM 138 mmol/L (132-148)
[2016-12-26 09:09] LABS: NEUTROPHIL 81 % (50-75); TOTAL CELLS COUNTED 100
[2016-12-26] MEDS: Aluminum Hydroxide/Magnesium Hydroxide Susp (30 mL) PO SCH (09:42)
[2016-12-26] MEDS: Saccharomyces Boulardi 250 mg Cap PO SCH ×2 (09:42→17:57)
[2016-12-26] MEDS ORDERED: Bisacodyl 5mg EC Tab PO ONE (13:11)
[2016-12-26] MEDS ORDERED: Potassium Chloride 20 mEq ER Tab PO SCH (13:15)
[2016-12-27] MEDS: Piperacill/Tazo 3.375gm in Dex 3.375 GM/50 ML BAG IVPB SCH ×4 (00:22→18:01)
[2016-12-27 07:26] LABS: BASO % 0.5 % (0.0-2.0); EOS % 0.7 % (0.0-4.0); LYMPH # 0.6 K/uL (1.0-4.3); LYMPH % 12.9 % (20.0-40.0); MEAN CELL VOLUME 77.7 fL (80.0-94.0); MEAN CORPUSCULAR HGB CONC 33.5 g/dL (33.0-37.0); MEAN PLATELET VOLUME 7.7 fL (7.2-11.7); MONO # 0.4 K/uL (0.0-0.8); MONO % 9.3 % (0.0-10.0); RED CELL DISTRIBUTION WIDTH 18.2 % (11.5-14.5); WHITE BLOOD COUNT 4.8 K/uL (4.8-10.8)
[2016-12-27 07:40] LABS: CHLORIDE 105 mmol/L (98-107); POTASSIUM 3.7 mmol/L (3.6-5.2); SODIUM 140 mmol/L (132-148)
[2016-12-27 07:42] LABS: BILIRUBIN,TOTAL 0.7 mg/dL (0.2-1.3); GFR AFRICAN-AMERICAN > 60
[2016-12-27 07:43] LABS: ALB/GLOB RATIO 0.9 (1.0-2.1); ALKALINE PHOSPHATASE 95 U/L (38-126); ALT/SGPT 61 U/L (21-72); AST/SGOT 48 U/L (17-59); BLOOD UREA NITROGEN 10 mg/dL (9-20); CARBON DIOXIDE 26 mmol/L (22-30); GLUCOSE,RANDOM 97 mg/dL (75-110); TOTAL PROTEIN 6.6 g/dL (6.3-8.3)
[2016-12-27 07:44] LABS: CALCIUM 8.2 mg/dl (8.6-10.4); MAGNESIUM 1.8 mg/dL (1.6-2.3)
[2016-12-27] MEDS: Aluminum Hydroxide/Magnesium Hydroxide Susp (30 mL) PO SCH ×2 (08:20→10:00)
[2016-12-27] MEDS: Saccharomyces Boulardi 250 mg Cap PO SCH ×2 (09:26→18:01)
--- NOTE | 2016-12-27 10:00 | CP.PCM.PN ---
<Eliana Stewart - Last Filed: 12/27/16 19:09> Subjective - Date & Time of Evaluation Date of Evaluation: 12/27/16 Time of Evaluation: 10:00 - Subjective Subjective: Patient seen and examined at bedside. Patient reports of mid epigastric pain for the past 2 days. Patient has not had a BM x2 days. Patient denied loza/cp/sob/ f/c/n/v/d. Patient continues to have back spasm which is relieved with muscle relaxant. Objective - Vital Signs/Intake and Output Vital Signs (last 24 hours): Temp Pulse Resp BP Pulse Ox 99.4 F 102 H 20 135/84 96 12/27/16 08:20 12/27/16 08:20 12/27/16 08:20 12/27/16 09:27 12/27/16 08:20 Intake and Output: 12/27/16 12/27/16 06:59 18:59 Intake Total 340 Output Total 850 Balance -510 - Medications Medications: Current Medications Al Hydrox/Mg Hydrox/Simethicone (Maalox 30 Ml) 30 ml PO DAILY [facility] Last Admin: 12/27/16 08:20 Dose: 30 ml Benztropine Mesylate (Cogentin) 1 mg PO Q6 PRN PRN Reason: Other Last Admin: 12/27/16 08:21 Dose: 1 mg Clonidine HCl (Catapres) 0.1 mg PO Q8 PRN PRN Reason: COWS Score More or Equal to 5 Last Admin: 12/07/16 00:37 Dose: 0.1 mg Cyclobenzaprine HCl (Flexeril) 5 mg PO Q8H PRN PRN Reason: Muscle spasm Last Admin: 12/27/16 08:20 Dose: 5 mg Dicyclomine HCl (Bentyl) 20 mg PO Q8 PRN PRN Reason: ABDOMINAL PAIN Last Admin: 12/27/16 08:21 Dose: 20 mg Gabapentin (Neurontin) 300 mg PO BID [facility] Last Admin: 12/27/16 09:26 Dose: 300 mg Hydroxyzine HCl (Atarax) 50 mg PO Q6H PRN PRN Reason: Anxiety Last Admin: 12/27/16 08:22 Dose: 50 mg Piperacillin Sod/Tazobactam Sod (Zosyn 3.375 Gm Iv Premix) 3.375 gm in 50 mls @ 100 mls/hr IVPB Q6 [facility] Last Admin: 12/27/16 06:05 Dose: 100 mls/hr Levetiracetam (Keppra) 500 mg PO BID [facility] Last Admin: 12/27/16 09:26 Dose: 500 mg Metoprolol Tartrate (Lopressor) 25 mg PO BID [facility] Last Admin: 12/27/16 09:27 Dose: 25 mg Ondansetron HCl (Zofran Tab) 4 mg PO Q8 PRN PRN Reason: Nausea/Vomiting Last Admin: 12/27/16 08:21 Dose: 4 mg Saccharomyces Boulardii (Florastor) 250 mg PO BID [facility] Last Admin: 12/27/16 09:26 Dose: 250 mg Sertraline HCl (Zoloft) 50 mg PO DAILY [facility] Last Admin: 12/27/16 09:26 Dose: 50 mg Trazodone HCl (Desyrel) 100 mg PO HS [facility] Last Admin: 12/26/16 22:15 Dose: 100 mg - Labs Labs: 12/27/16 07:07 12/27/16 07:07 PT 14.2 SECONDS (9.7-12.2) H 12/12/16 07:08 INR 1.3 12/12/16 07:08 APTT 32 SECONDS (21-34) 12/12/16 07:08 - Constitutional Appears: Non-toxic, No Acute Distress - Head Exam Head Exam: ATRAUMATIC, NORMAL INSPECTION, NORMOCEPHALIC - Eye Exam Eye Exam: EOMI - ENT Exam ENT Exam: Mucous Membranes Moist - Respiratory Exam Respiratory Exam: Clear to Ausculation Bilateral, NORMAL BREATHING PATTERN - Cardiovascular Exam Cardiovascular Exam: REGULAR RHYTHM, Murmur (holosystolic ) - GI/Abdominal Exam GI & Abdominal Exam: Distended, Soft, Normal Bowel Sounds. absent: Tenderness - Neurological Exam Neurological Exam: Alert, Awake - Psychiatric Exam Psychiatric exam: Normal Affect, Normal Mood - Skin Skin Exam: Dry, Intact, Warm Assessment and Plan - Assessment and Plan (Free Text) Assessment: Bacteremia * CXR 12/12 - heterogenous infiltrate at inferior Right and Mid/inferior left lung zones vs atelectasis with likely small left pleural effusion and Right central venous line terminating at the right atrium; Repeat CXR 12/13 shows right IJ central venous line with tip in the SVC after adjustment and right lower lobe opacity with improvement * Echo 12/12: Mobile density seen with high velocities across AV highly suspicious for AV endocarditis, transmitral doppler flow pattern is grade 1 ( abnormal relaxation pattern), LV and RV systolic function normal, EF = 60-65% * Blood cultures 12/12 - Gram positive cocci in chains (Strep mitis in final read ) * Urine culture 12/12 - no growth * Cont Zosyn 3.375 gm Q6H for now and d/c Vancomycin 1 gm Q12H (12/14) - ID recs (Uriel) * 12/13 Vanc trough: 6.4 * Tylenol 650 mg PO Q6 prn fever. Due to history of hepatitis, consider switching to a different agent at some point. * Patient seen at [facility] in 09/2016. Patient had TTE at that time which did NOT show vegetations on valve. Patient was also seen by psychiatry at that time as well as general surgery for abscess I&D. Will attempt to obtain patient's March [facility] medical records with information regarding valve surgery * Dr. Willson was contacted and agreed to see the patient on consult as long as Dr. Rushing (cardiology) accepts the transfer under his care * Still waiting for call back from Dr. Rushing (who originally cared for the patient at [facility]) as to whether he will accept the patient * If not accepted, patient will need at least 6 weeks of antibiotics here Systolic ejection murmur * Likely 2/2 aortic valve replacement x2 * Echo 12/12 showed vegetations * Cardio consult on 12/14 (Dr. Leyva): does not recommend CASPER at this time * Positive blood culture for Strep mitis (12/12/16) * Repeat Blood Cultures 12/14/16 and 12/16/16 showed NO growth at 5 days * Cont zosyn and d/c vanc per Dr. Trevino as stated above; F/U about abx coverage for strep mitis * Hx of IV drug use/porcine valve * CT surg consult (Dr. Peralta) - says should be followed up with surgeon who did original AV replacement (Dr. Willson) * See above * F/U Medical records from [facility] - call original surgeon for AV valve replacement and see if he would like to accept the patient at [facility] * CXR: Right-sided central venous catheter extends to the cavoatrial junction. Mild left basilar atelectasis/infiltrate and or small pleural effusion. Median sternotomy wires. Cardiomegaly. Low back pain * lumbar spine XR - No abnormalities seen * flexeril 5mg TID * MRI lumbar spine - No acute fracture, spondylolysis or spondylolisthesis. No evidence of discitis/osteomyelitis. Mild degenerative disc disease at L4-5 with a posterior disc bulge and superimposed right foraminal disc protrusion. Mild right neural foraminal stenosis. No central spinal canal stenosis. Note is made of splenomegaly, perisplenic and splenorenal arises in this patient with known hepatic cirrhosis. Left shoulder pain/weakness * 2/2 Hx of fall * Left shoulder XR (12/13) - no acute dislocation or fracture, soft tissues unremarkable Diarrhea * Stool Culture/O&P (12/12) - negative for O&P, salmonella, shigella, and campylobacter * Stool negative for leukocytes and occult blood (12/12) * Serum C. diff antigen and toxin negative (12/12) * Stool C diff (Neg) and repeat leukocytes (Neg) * stool culture 12/16 negative * Patient is currently constipated and simethicone was ordered (12/27) History of Seizures * Continue Keppra 500 mg PO BID * Continue Gabapentin 300 mg PO BID History of Depression * Continue Zoloft 50 mg PO daily History of Hepatitis B & C * Monitor LFTs. 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 * On old admission growth factors like Neupogen (Filgrastim) were recommended for low WBC * Heme/Onc consulted (Alyx) - recs against IV iron supplementation at this time until infection resolves, transfusion support prn, plans to review peripheral smear, BM evaluation if counts do not return to baseline * HIV 1&2 Ab screen negative * Stool negative for occult blood Prophylactic Measure * Heparin and GI ppx held due to platelets * SCDs for now * Patient has been getting up every 2 hours and performing 10 laps around the floor * Maalox 30 ml PO once a day PRN indigestion <Chichi Dc V - Last Filed: 12/27/16 19:22> Objective - Vital Signs/Intake and Output Vital Signs (last 24 hours): Temp Pulse Resp BP Pulse Ox 98.3 F 91 H 20 127/79 98 12/27/16 15:24 12/27/16 15:24 12/27/16 15:24 12/27/16 18:08 12/27/16 15:24 Intake and Output: 12/27/16 12/28/16 18:59 06:59 Intake Total 380 Balance 380 - Medications Medications: Current Medications Al Hydrox/Mg Hydrox/Simethicone (Maalox 30 Ml) 30 ml PO DAILY [facility] Last Admin: 12/27/16 10:00 Dose: Not Given Benztropine Mesylate (Cogentin) 1 mg PO Q6 PRN PRN Reason: Other Last Admin: 12/27/16 08:21 Dose: 1 mg Clonidine HCl (Catapres) 0.1 mg PO Q8 PRN PRN Reason: COWS Score More or Equal to 5 Last Admin: 12/07/16 00:37 Dose: 0.1 mg Cyclobenzaprine HCl (Flexeril) 5 mg PO Q8H PRN PRN Reason: Muscle spasm Last Admin: 12/27/16 18:02 Dose: 5 mg Dicyclomine HCl (Bentyl) 20 mg PO Q8 PRN PRN Reason: ABDOMINAL PAIN Last Admin: 12/27/16 15:04 Dose: 20 mg Gabapentin (Neurontin) 300 mg PO BID [facility] Last Admin: 12/27/16 18:01 Dose: 300 mg Hydroxyzine HCl (Atarax) 50 mg PO Q6H PRN PRN Reason: Anxiety Last Admin: 12/27/16 14:32 Dose: 50 mg Piperacillin Sod/Tazobactam Sod (Zosyn 3.375 Gm Iv Premix) 3.375 gm in 50 mls @ 100 mls/hr IVPB Q6 [facility] Last Admin: 12/27/16 18:01 Dose: 100 mls/hr Levetiracetam (Keppra) 500 mg PO BID [facility] Last Admin: 12/27/16 18:01 Dose: 500 mg Metoprolol Tartrate (Lopressor) 25 mg PO BID [facility] Last Admin: 12/27/16 18:08 Dose: 25 mg Ondansetron HCl (Zofran Tab) 4 mg PO Q8 PRN PRN Reason: Nausea/Vomiting Last Admin: 12/27/16 08:21 Dose: 4 mg Saccharomyces Boulardii (Florastor) 250 mg PO BID [facility] Last Admin: 12/27/16 18:01 Dose: 250 mg Sertraline HCl (Zoloft) 50 mg PO DAILY [facility] Last Admin: 12/27/16 09:26 Dose: 50 mg Trazodone HCl (Desyrel) 100 mg PO HS [facility] Last Admin: 12/26/16 22:15 Dose: 100 mg - Labs Labs: 12/27/16 07:07 12/27/16 07:07 PT 14.2 SECONDS (9.7-12.2) H 12/12/16 07:08 INR 1.3 12/12/16 07:08 APTT 32 SECONDS (21-34) 12/12/16 07:08 Attending/Attestation - Attestation I have personally seen and examined this patient.: Yes I have fully participated in the care of the patient.: Yes I have reviewed all pertinent clinical information, including history, physical exam and plan: Yes Notes (Text): Patient seen, examined, and case discussed with day-time resident during rounds this morning Repeat blood cultures remain negative; patient to continue IV abx for 6 weeks. Discussed with Resident, has attempted to call both office of Dr. Rushing but no call-back; will discuss with cardiology Dr. Leyva. Patient is afebrile, no elevated white count, and is currently on Day 15 of IV antibiotics; will need IV abx for 6 weeks. Patient reports he has been constipated for 2 days. Ordered for stool softners and one time dose of ducolax today. Assessment/Plan 1) Sepsis * Criteria: WBC<4; Temp: 104 F; positive blood cultures; Lactate: 1.2 on admission * Infectious Disease (Dr. Trevino) on board * Zosyn 3.375 gm Q6H (active since 12/12/16)-->patient to complete 6 weeks of IV Abx on January * Echocardiogram (12/14/16): left ventricle systolic function is normal; EF: 60- 65%, Transmital doppler flow pattern is Grade I abnormal relaxation pattern. Right ventricular systolic function is normal. Aortic valve bioprosthetic. Mobile density seen with high velocities across Aortic valve highly suspicious for aortic valve endocarditis. recommended for CASPER * Cardiology (Dr. Leyva)-->no CASPER; patient has endocarditis * Blood cultures (12/12/16): Strep mitis X2 * Blood culture (12/14/16): No growth * Blood culture (12/16/16): No growth * Urine culture (12/12/16): no growth * Zosyn 3.375 gm Q6H (active since 12/12/16)-->patient to complete 6 weeks of IV Abx on January * Tylenol 650 mg PO Q6 prn fever. Monitor liver function tests in light of hepatitis hx 2) Endocarditis * Infectious Disease (Dr. Trevino) on board-->help appreciated * IV abx for 6 weeks * Cardiology (Dr. Leyva)-->no CASPER; patient has endocarditis * Echocardiogram (12/14/16): left ventricle systolic function is normal; EF: 60- 65%, Transmital doppler flow pattern is Grade I abnormal relaxation pattern. Right ventricular systolic function is normal. Aortic valve bioprosthetic. Mobile density seen with high velocities across Aortic valve highly suspicious for aortic valve endocarditis. recommended for CASPER * IV Abx: Zosyn 3.375 gm Q6H (active since 12/12/16) and Vancomycin discontinued * Blood cultures (12/12/16): Strep mitis X2 * Blood cultures (12/14/16): pending * Risk factors: +murmur, IV drug use (2 major in Daily's Criteria) * Chest Xray (12/16/16): CXR: Right-sided central venous catheter extends to the cavoatrial junction. Mild left basilar atelectasis/infiltrate and or small pleural effusion. Median sternotomy wires. Cardiomegaly. 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 Mild degenerative disc disease at L4-5 with a posterior disc bulge and superimposed right foraminal disc protrusion. Mild right neural foraminal stenosis. No central spinal canal stenosis. Note is made of splenomegaly, perisplenic and splenorenal arises in this patient with known hepatic cirrhosis. * Flexeril 5mg PO TID prn muscle spasm 6) Diarrhea * Stool culture/O&P (12/12): negative for O&P, salmonella, shigella, and campylobacter * Stool negative for leukocytes and occult blood * Serum C. Diff antigen and toxin: negative 7) Constipation * has not had a BM for two days; ordered for dose of Ducolax * Start Colace 100mg PO bid 8) History of Seizures * Continue Keppra 500 mg PO BID * Continue Gabapentin 300 mg PO BID 9) History of Depression * Continue Zoloft 50 mg PO daily 9) History of Hepatitis B & C * Monitor LFTs. Currently WNL 10) Pancytopenia * Heme-Onc (Dr. 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 On old admission growth factors like Neupogen (Filgrastim) were recommended for low WBC. * Monitor H/H and platelets 11) Prophylactic Measure * Heparin and GI ppx held due thrombocytopenia * SCDs * Florastor 250mg PO bid
[2016-12-27] MEDS ORDERED: Simethicone 80 mg Chewtab PO ONE (11:13)
[2016-12-27] MEDS ORDERED: Bisacodyl 5mg EC Tab PO ONE ×2 (19:21→21:16)
[2016-12-28] MEDS: Piperacill/Tazo 3.375gm in Dex 3.375 GM/50 ML BAG IVPB SCH ×5 (00:41→23:53)
[2016-12-28 07:01] LABS: BASO % 0.6 % (0.0-2.0); HEMATOCRIT 28.4 % (35.0-51.0); LYMPH # 0.7 K/uL (1.0-4.3); LYMPH % 16.4 % (20.0-40.0); MEAN CELL VOLUME 77.5 fL (80.0-94.0); MEAN CORPUSCULAR HEMOGLOBIN 25.9 pg (27.0-31.0); MEAN CORPUSCULAR HGB CONC 33.4 g/dL (33.0-37.0); MEAN PLATELET VOLUME 7.4 fL (7.2-11.7); MONO # 0.4 K/uL (0.0-0.8); MONO % 9.3 % (0.0-10.0); NRBC % 0.1 % (0.0-2.0); RED CELL DISTRIBUTION WIDTH 18.5 % (11.5-14.5); WHITE BLOOD COUNT 4.4 K/uL (4.8-10.8)
[2016-12-28 07:38] LABS: CHLORIDE 105 mmol/L (98-107); POTASSIUM 3.6 mmol/L (3.6-5.2); SODIUM 138 mmol/L (132-148)
[2016-12-28 07:40] LABS: ALB/GLOB RATIO 0.9 (1.0-2.1); AST/SGOT 34 U/L (17-59); BILIRUBIN,TOTAL 0.6 mg/dL (0.2-1.3); CARBON DIOXIDE 27 mmol/L (22-30); GFR AFRICAN-AMERICAN > 60; TOTAL PROTEIN 6.4 g/dL (6.3-8.3)
[2016-12-28 07:41] LABS: ALKALINE PHOSPHATASE 67 U/L (38-126); ALT/SGPT 51 U/L (21-72); BLOOD UREA NITROGEN 9 mg/dL (9-20); CALCIUM 8.2 mg/dl (8.6-10.4); GLUCOSE,RANDOM 83 mg/dL (75-110); MAGNESIUM 1.7 mg/dL (1.6-2.3); PHOSPHOROUS 3.1 mg/dL (2.5-4.5)
[2016-12-28] MEDS: Saccharomyces Boulardi 250 mg Cap PO SCH ×2 (10:10→18:05)
[2016-12-28] MEDS: Aluminum Hydroxide/Magnesium Hydroxide Susp (30 mL) PO SCH (10:12)
--- NOTE | 2016-12-28 10:17 | CP.PCM.PN ---
<Eliana Stewart - Last Filed: 12/28/16 16:40> Subjective - Date & Time of Evaluation Date of Evaluation: 12/28/16 Time of Evaluation: 10:14 - Subjective Subjective: Patient seen and examined at bedside. Patient resting comfortably in bed. Patient say he is still having constipation and his abdomen feels distended. Patient's last BM was 3 days ago. Patient denies N/V, F/C, CP/SOB/Palpitations. Objective - Vital Signs/Intake and Output Vital Signs (last 24 hours): Temp Pulse Resp BP Pulse Ox 98.7 F 92 H 20 113/74 96 12/28/16 04:57 12/28/16 04:57 12/28/16 04:57 12/28/16 04:57 12/28/16 04:57 Intake and Output: 12/28/16 12/28/16 06:59 18:59 Intake Total 220 Output Total 1050 Balance -830 - Medications Medications: Current Medications Al Hydrox/Mg Hydrox/Simethicone (Maalox 30 Ml) 30 ml PO DAILY [facility] Last Admin: 12/27/16 10:00 Dose: Not Given Cyclobenzaprine HCl (Flexeril) 5 mg PO Q8H PRN PRN Reason: Muscle spasm Last Admin: 12/27/16 18:02 Dose: 5 mg Dicyclomine HCl (Bentyl) 20 mg PO Q8 PRN PRN Reason: ABDOMINAL PAIN Last Admin: 12/27/16 15:04 Dose: 20 mg Docusate Sodium (Colace) 100 mg PO BID [facility] Last Admin: 12/27/16 21:22 Dose: 100 mg Gabapentin (Neurontin) 300 mg PO BID [facility] Last Admin: 12/27/16 18:01 Dose: 300 mg Hydroxyzine HCl (Atarax) 50 mg PO Q6H PRN PRN Reason: Anxiety Last Admin: 12/27/16 22:44 Dose: 50 mg Piperacillin Sod/Tazobactam Sod (Zosyn 3.375 Gm Iv Premix) 3.375 gm in 50 mls @ 100 mls/hr IVPB Q6 [facility] Last Admin: 12/28/16 06:02 Dose: 100 mls/hr Levetiracetam (Keppra) 500 mg PO BID [facility] Last Admin: 12/27/16 18:01 Dose: 500 mg Metoprolol Tartrate (Lopressor) 25 mg PO BID [facility] Last Admin: 12/27/16 18:08 Dose: 25 mg Ondansetron HCl (Zofran Tab) 4 mg PO Q8 PRN PRN Reason: Nausea/Vomiting Last Admin: 12/27/16 08:21 Dose: 4 mg Saccharomyces Boulardii (Florastor) 250 mg PO BID [facility] Last Admin: 12/27/16 18:01 Dose: 250 mg Sertraline HCl (Zoloft) 50 mg PO DAILY [facility] Last Admin: 12/27/16 09:26 Dose: 50 mg Trazodone HCl (Desyrel) 100 mg PO HS [facility] Last Admin: 12/27/16 22:44 Dose: 100 mg - Labs Labs: 12/28/16 06:45 12/28/16 06:45 PT 14.2 SECONDS (9.7-12.2) H 12/12/16 07:08 INR 1.3 12/12/16 07:08 APTT 32 SECONDS (21-34) 12/12/16 07:08 - Constitutional Appears: Non-toxic, No Acute Distress, Unkempt - Head Exam Head Exam: ATRAUMATIC, NORMAL INSPECTION, NORMOCEPHALIC - Eye Exam Eye Exam: EOMI - ENT Exam ENT Exam: Mucous Membranes Moist - Respiratory Exam Respiratory Exam: Clear to Ausculation Bilateral, NORMAL BREATHING PATTERN - Cardiovascular Exam Cardiovascular Exam: REGULAR RHYTHM, Murmur (holosystolic ). absent: Bradycardia, Tachycardia - GI/Abdominal Exam GI & Abdominal Exam: Distended, Normal Bowel Sounds. absent: Tenderness - Extremities Exam Extremities Exam: Normal Inspection. absent: Calf Tenderness, Pedal Edema - Neurological Exam Neurological Exam: Alert, Awake - Psychiatric Exam Psychiatric exam: Normal Affect, Normal Mood - Skin Skin Exam: Dry, Intact, Normal Color, Warm Assessment and Plan - Assessment and Plan (Free Text) Assessment: Bacteremia * CXR 12/12 - heterogenous infiltrate at inferior Right and Mid/inferior left lung zones vs atelectasis with likely small left pleural effusion and Right central venous line terminating at the right atrium; Repeat CXR 12/13 shows right IJ central venous line with tip in the SVC after adjustment and right lower lobe opacity with improvement * Echo 12/12: Mobile density seen with high velocities across AV highly suspicious for AV endocarditis, transmitral doppler flow pattern is grade 1 ( abnormal relaxation pattern), LV and RV systolic function normal, EF = 60-65% * Blood cultures 12/12 - Gram positive cocci in chains (Strep mitis in final read ) * Urine culture 12/12 - no growth * Cont Zosyn 3.375 gm Q6H for now and d/c Vancomycin 1 gm Q12H (12/14) - ID recs (Uriel) * 12/13 Vanc trough: 6.4 * Tylenol 650 mg PO Q6 prn fever. Due to history of hepatitis, consider switching to a different agent at some point. * Patient seen [place] [facility] [place]. Patient had TTE at that time which did NOT show vegetations on valve. Patient was also seen by psychiatry at that time as well as general surgery for abscess I&D. Will attempt to obtain patient's March [facility] [place] records with information regarding valve surgery * Dr. Willson was contacted and agreed to see the patient on consult as long as Dr. Rushing (cardiology) accepts the transfer under his care * Still waiting for call back from Dr. Rushing (who originally cared for the patient at [facility]) as to whether he will accept the patient * If not accepted, patient will need at least 6 weeks of antibiotics here Systolic ejection murmur * Likely 2/2 aortic valve replacement x2 * Echo 12/12 showed vegetations * Cardio consult on 12/14 (Dr. Leyva): does not recommend CASPER at this time * Positive blood culture for Strep mitis (12/12/16) * Repeat Blood Cultures 12/14/16 and 12/16/16 showed NO growth at 5 days * Cont zosyn and d/c vanc per Dr. Trevino as stated above; F/U about abx coverage for strep mitis * Hx of IV drug use/porcine valve * CT surg consult (Dr. Peralta) - says should be followed up with surgeon who did original AV replacement (Dr. Willson) * See above * F/U Medical records from [facility] - call original surgeon for AV valve replacement and see if he would like to accept the patient at [facility] * CXR: Right-sided central venous catheter extends to the cavoatrial junction. Mild left basilar atelectasis/infiltrate and or small pleural effusion. Median sternotomy wires. Cardiomegaly. Low back pain * lumbar spine XR - No abnormalities seen * flexeril 5mg TID * MRI lumbar spine - No acute fracture, spondylolysis or spondylolisthesis. No evidence of discitis/osteomyelitis. Mild degenerative disc disease at L4-5 with a posterior disc bulge and superimposed right foraminal disc protrusion. Mild right neural foraminal stenosis. No central spinal canal stenosis. Note is made of splenomegaly, perisplenic and splenorenal arises in this patient with known hepatic cirrhosis. Left shoulder pain/weakness * 2/2 Hx of fall * Left shoulder XR (12/13) - no acute dislocation or fracture, soft tissues unremarkable Diarrhea * Stool Culture/O&P (12/12) - negative for O&P, salmonella, shigella, and campylobacter * Stool negative for leukocytes and occult blood (12/12) * Serum C. diff antigen and toxin negative (12/12) * Stool C diff (Neg) and repeat leukocytes (Neg) * stool culture 12/16 negative * Patient is currently constipated and simethicone was ordered (12/27) - Patient still without a bowel movement; obstruction series ordered 12/28 History of Seizures * Continue Keppra 500 mg PO BID * Continue Gabapentin 300 mg PO BID History of Depression * Continue Zoloft 50 mg PO daily History of Hepatitis B & C * Monitor LFTs. 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 * On old admission growth factors like Neupogen (Filgrastim) were recommended for low WBC * Heme/Onc consulted (Alyx) - recs against IV iron supplementation at this time until infection resolves, transfusion support prn, plans to review peripheral smear, BM evaluation if counts do not return to baseline * HIV 1&2 Ab screen negative * Stool negative for occult blood Prophylactic Measure * Heparin and GI ppx held due to platelets * SCDs for now * Patient has been getting up every 2 hours and performing 10 laps around the floor * Maalox 30 ml PO once a day PRN indigestion <Chichi Dc V - Last Filed: 12/28/16 22:42> Objective - Vital Signs/Intake and Output Vital Signs (last 24 hours): Temp Pulse Resp BP Pulse Ox 98.8 F 95 H 20 128/71 95 12/28/16 15:24 12/28/16 16:00 12/28/16 15:24 12/28/16 18:04 12/28/16 15:24 - Medications Medications: Current Medications Al Hydrox/Mg Hydrox/Simethicone (Maalox 30 Ml) 30 ml PO DAILY [facility] Last Admin: 12/28/16 10:12 Dose: 30 ml Cyclobenzaprine HCl (Flexeril) 5 mg PO Q8H PRN PRN Reason: Muscle spasm Last Admin: 12/28/16 18:05 Dose: 5 mg Dicyclomine HCl (Bentyl) 20 mg PO Q8 PRN PRN Reason: ABDOMINAL PAIN Last Admin: 12/27/16 15:04 Dose: 20 mg Docusate Sodium (Colace) 100 mg PO BID [facility] Last Admin: 12/28/16 18:05 Dose: 100 mg Gabapentin (Neurontin) 300 mg PO BID [facility] Last Admin: 12/28/16 18:05 Dose: 300 mg Hydroxyzine HCl (Atarax) 50 mg PO Q6H PRN PRN Reason: Anxiety Last Admin: 12/27/16 22:44 Dose: 50 mg Piperacillin Sod/Tazobactam Sod (Zosyn 3.375 Gm Iv Premix) 3.375 gm in 50 mls @ 100 mls/hr IVPB Q6 [facility] Last Admin: 12/28/16 18:05 Dose: 100 mls/hr Lactulose (Enulose) 20 gm PO ONCE ONE Stop: 12/28/16 22:39 Levetiracetam (Keppra) 500 mg PO BID [facility] Last Admin: 12/28/16 18:05 Dose: 500 mg Metoprolol Tartrate (Lopressor) 25 mg PO BID [facility] Last Admin: 12/28/16 18:04 Dose: 25 mg Ondansetron HCl (Zofran Tab) 4 mg PO Q8 PRN PRN Reason: Nausea/Vomiting Last Admin: 12/27/16 08:21 Dose: 4 mg Saccharomyces Boulardii (Florastor) 250 mg PO BID [facility] Last Admin: 12/28/16 18:05 Dose: 250 mg Sertraline HCl (Zoloft) 50 mg PO DAILY [facility] Last Admin: 12/28/16 10:12 Dose: 50 mg Trazodone HCl (Desyrel) 100 mg PO HS [facility] Last Admin: 12/28/16 22:17 Dose: 100 mg - Labs Labs: 12/28/16 06:45 12/28/16 06:45 PT 14.2 SECONDS (9.7-12.2) H 12/12/16 07:08 INR 1.3 12/12/16 07:08 APTT 32 SECONDS (21-34) 12/12/16 07:08 Attending/Attestation - Attestation I have personally seen and examined this patient.: Yes I have fully participated in the care of the patient.: Yes I have reviewed all pertinent clinical information, including history, physical exam and plan: Yes Notes (Text): Patient seen, examined, and case discussed with day-time resident during rounds this afternoon morning. Patient reports he has note had a bowel movement in 3 days in spite of stool softener. Patient ordered for obstructive series. NPO until result of obstructive series came back. Result: moderate constipation. Diet resumed. Patient ordered for Lactulose 5mg PO X1 and will f/u for bowel movement Repeat blood cultures remain negative; patient to continue IV abx for 6 weeks ( on Day 16. Discussed with Resident, has attempted to call both office of Dr. Rushing but no call-back; will attempt to follow-up with cardiology Dr. Leyva. Resident did call with no response back. Patient is afebrile, no elevated white count, and is currently on Day 16 of IV antibiotics; will need IV abx for 6 weeks total per ID Assessment/Plan 1) Sepsis * Criteria: WBC<4; Temp: 104 F; positive blood cultures; Lactate: 1.2 on admission * Infectious Disease (Dr. Trevino) on board * Zosyn 3.375 gm Q6H (active since 12/12/16)-->patient to complete 6 weeks of IV Abx on January * Echocardiogram (12/14/16): left ventricle systolic function is normal; EF: 60- 65%, Transmital doppler flow pattern is Grade I abnormal relaxation pattern. Right ventricular systolic function is normal. Aortic valve bioprosthetic. Mobile density seen with high velocities across Aortic valve highly suspicious for aortic valve endocarditis. recommended for CASPER * Cardiology (Dr. Leyva)-->no CASEPR; patient has endocarditis * Blood cultures (12/12/16): Strep mitis X2 * Blood culture (12/14/16): No growth * Blood culture (12/16/16): No growth * Urine culture (12/12/16): no growth * Zosyn 3.375 gm Q6H (active since 12/12/16)-->patient to complete 6 weeks of IV Abx on January * Tylenol 650 mg PO Q6 prn fever. Monitor liver function tests in light of hepatitis hx 2) Endocarditis * Infectious Disease (Dr. Trevino) on board-->help appreciated * IV abx for 6 weeks * Cardiology (Dr. Leyva)-->no CASPER; patient has endocarditis * Echocardiogram (12/14/16): left ventricle systolic function is normal; EF: 60- 65%, Transmital doppler flow pattern is Grade I abnormal relaxation pattern. Right ventricular systolic function is normal. Aortic valve bioprosthetic. Mobile density seen with high velocities across Aortic valve highly suspicious for aortic valve endocarditis. recommended for CASPER * IV Abx: Zosyn 3.375 gm Q6H (active since 12/12/16) and Vancomycin discontinued * Blood cultures (12/12/16): Strep mitis X2 * Blood cultures (12/14/16): pending * Risk factors: +murmur, IV drug use (2 major in Daily's Criteria) * Chest Xray (12/16/16): CXR: Right-sided central venous catheter extends to the cavoatrial junction. Mild left basilar atelectasis/infiltrate and or small pleural effusion. Median sternotomy wires. Cardiomegaly. 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 Mild degenerative disc disease at L4-5 with a posterior disc bulge and superimposed right foraminal disc protrusion. Mild right neural foraminal stenosis. No central spinal canal stenosis. Note is made of splenomegaly, perisplenic and splenorenal arises in this patient with known hepatic cirrhosis. * Flexeril 5mg PO TID prn muscle spasm 6) Diarrhea * Resolved * Stool culture/O&P (12/12): negative for O&P, salmonella, shigella, and campylobacter * Stool negative for leukocytes and occult blood * Serum C. Diff antigen and toxin: negative 7) Constipation * has not had a BM for three days; ordered for dose of Lactulose ruled out with obstruction * Obstructive series (12/28/16): moderate constipation * Start Colace 100mg PO bid 8) History of Seizures * Continue Keppra 500 mg PO BID * Continue Gabapentin 300 mg PO BID 9) History of Depression * Continue Zoloft 50 mg PO daily 9) History of Hepatitis B & C * Monitor LFTs. Currently WNL 10) Pancytopenia * Heme-Onc (Dr. 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 On old admission growth factors like Neupogen (Filgrastim) were recommended for low WBC. * Monitor H/H and platelets 11) Prophylactic Measure * Heparin and GI ppx held due thrombocytopenia * SCDs * Florastor 250mg PO bid
--- NOTE | 2016-12-28 17:01 | RAD ---
PROCEDURE: Radiographs of the chest and abdomen (obstructive series) HISTORY: Constipation x3 days COMPARISON: Comparison is made to the previous x-ray. TECHNIQUE: AP radiograph of the chest, with upright and supine radiographs of the abdomen. FINDINGS: CHEST: Lungs: No significant interval change in the lungs. Clear. Cardiovascular: Normal size heart. No pulmonary vascular congestion. Post sternotomy changes are again seen. Pleura: No pleural fluid. No pneumothorax. Other findings: Right-sided subclavian catheter is seen in place. ABDOMEN AND PELVIS: Bowel: Moderate constipation. No evidence of small bowel obstruction. Free air: None. Bones: Unremarkable. Other findings: None. IMPRESSION: Moderate constipation. No evidence of bowel obstruction.
[2016-12-29] MEDS: Piperacill/Tazo 3.375gm in Dex 3.375 GM/50 ML BAG IVPB SCH ×3 (05:04→18:33)
--- NOTE | 2016-12-29 07:38 | CP.PCM.PN ---
<Eliana Stewart - Last Filed: 12/29/16 19:11> Subjective - Date & Time of Evaluation Date of Evaluation: 12/29/16 Time of Evaluation: 07:35 - Subjective Subjective: Patient seen and examined at bedside. Patient feeling much better today as he had a BM last night and this morning. Patient denies N/V, F/C, CP/SOB/ Palpitations. Objective - Vital Signs/Intake and Output Vital Signs (last 24 hours): Temp Pulse Resp BP Pulse Ox 98.6 F 88 20 131/72 97 12/28/16 23:55 12/29/16 03:54 12/28/16 23:55 12/28/16 23:55 12/28/16 23:55 Intake and Output: 12/29/16 12/29/16 06:59 18:59 Intake Total 350 Output Total 400 Balance -50 - Medications Medications: Current Medications Al Hydrox/Mg Hydrox/Simethicone (Maalox 30 Ml) 30 ml PO DAILY [facility] Last Admin: 12/28/16 10:12 Dose: 30 ml Cyclobenzaprine HCl (Flexeril) 5 mg PO Q8H PRN PRN Reason: Muscle spasm Last Admin: 12/29/16 05:40 Dose: 5 mg Dicyclomine HCl (Bentyl) 20 mg PO Q8 PRN PRN Reason: ABDOMINAL PAIN Last Admin: 12/27/16 15:04 Dose: 20 mg Docusate Sodium (Colace) 100 mg PO BID [facility] Last Admin: 12/28/16 18:05 Dose: 100 mg Gabapentin (Neurontin) 300 mg PO BID [facility] Last Admin: 12/28/16 18:05 Dose: 300 mg Hydroxyzine HCl (Atarax) 50 mg PO Q6H PRN PRN Reason: Anxiety Last Admin: 12/27/16 22:44 Dose: 50 mg Piperacillin Sod/Tazobactam Sod (Zosyn 3.375 Gm Iv Premix) 3.375 gm in 50 mls @ 100 mls/hr IVPB Q6 [facility] Last Admin: 12/29/16 05:04 Dose: 100 mls/hr Levetiracetam (Keppra) 500 mg PO BID [facility] Last Admin: 12/28/16 18:05 Dose: 500 mg Metoprolol Tartrate (Lopressor) 25 mg PO BID [facility] Last Admin: 12/28/16 18:04 Dose: 25 mg Ondansetron HCl (Zofran Tab) 4 mg PO Q8 PRN PRN Reason: Nausea/Vomiting Last Admin: 12/27/16 08:21 Dose: 4 mg Saccharomyces Boulardii (Florastor) 250 mg PO BID [facility] Last Admin: 12/28/16 18:05 Dose: 250 mg Sertraline HCl (Zoloft) 50 mg PO DAILY [facility] Last Admin: 12/28/16 10:12 Dose: 50 mg Trazodone HCl (Desyrel) 100 mg PO HS [facility] Last Admin: 12/28/16 22:17 Dose: 100 mg - Labs Labs: 12/28/16 06:45 12/28/16 06:45 PT 14.2 SECONDS (9.7-12.2) H 12/12/16 07:08 INR 1.3 12/12/16 07:08 APTT 32 SECONDS (21-34) 12/12/16 07:08 - Constitutional Appears: Non-toxic, No Acute Distress - Head Exam Head Exam: ATRAUMATIC, NORMAL INSPECTION, NORMOCEPHALIC - Eye Exam Eye Exam: EOMI - ENT Exam ENT Exam: Mucous Membranes Moist - Respiratory Exam Respiratory Exam: Clear to Ausculation Bilateral, NORMAL BREATHING PATTERN - Cardiovascular Exam Cardiovascular Exam: REGULAR RHYTHM, Murmur (holosystolic) - GI/Abdominal Exam GI & Abdominal Exam: Soft, Normal Bowel Sounds. absent: Tenderness - Extremities Exam Extremities Exam: Normal Inspection - Neurological Exam Neurological Exam: Alert, Awake - Psychiatric Exam Psychiatric exam: Normal Affect, Normal Mood - Skin Skin Exam: Dry, Intact, Normal Color, Warm Assessment and Plan - Assessment and Plan (Free Text) Assessment: Bacteremia * CXR 12/12 - heterogenous infiltrate at inferior Right and Mid/inferior left lung zones vs atelectasis with likely small left pleural effusion and Right central venous line terminating at the right atrium; Repeat CXR 12/13 shows right IJ central venous line with tip in the SVC after adjustment and right lower lobe opacity with improvement * Echo 12/12: Mobile density seen with high velocities across AV highly suspicious for AV endocarditis, transmitral doppler flow pattern is grade 1 ( abnormal relaxation pattern), LV and RV systolic function normal, EF = 60-65% * Blood cultures 12/12 - Gram positive cocci in chains (Strep mitis in final read ) * Urine culture 12/12 - no growth * Cont Zosyn 3.375 gm Q6H for now and d/c Vancomycin 1 gm Q12H (12/14) - ID recs (Uriel) * 12/13 Vanc trough: 6.4 * Tylenol 650 mg PO Q6 prn fever. Due to history of hepatitis, consider switching to a different agent at some point. * Patient seen at [facility] in 09/2016. Patient had TTE at that time which did NOT show vegetations on valve. Patient was also seen by psychiatry at that time as well as general surgery for abscess I&D. Will attempt to obtain patient's March [facility] medical records with information regarding valve surgery * Dr. Willson was contacted and agreed to see the patient on consult as long as Dr. Rushing (cardiology) accepts the transfer under his care * Still waiting for call back from Dr. Rushing (who originally cared for the patient at [facility]) as to whether he will accept the patient * If not accepted, patient will need at least 6 weeks of antibiotics here - Patient on day of Zosyn (end date Jan.23) Systolic ejection murmur * Likely 2/2 aortic valve replacement x2 * Echo 12/12 showed vegetations * Cardio consult on 12/14 (Dr. Leyva): does not recommend CASPER at this time * Positive blood culture for Strep mitis (12/12/16) * Repeat Blood Cultures 12/14/16 and 12/16/16 showed NO growth at 5 days * Cont zosyn and d/c vanc per Dr. Trevino as stated above; F/U about abx coverage for strep mitis * Hx of IV drug use/porcine valve * CT surg consult (Dr. Peralta) - says should be followed up with surgeon who did original AV replacement (Dr. Willson) * See above * F/U Medical records from [facility] - call original surgeon for AV valve replacement and see if he would like to accept the patient at [facility] * CXR: Right-sided central venous catheter extends to the cavoatrial junction. Mild left basilar atelectasis/infiltrate and or small pleural effusion. Median sternotomy wires. Cardiomegaly. Low back pain * lumbar spine XR - No abnormalities seen * flexeril 5mg TID * MRI lumbar spine - No acute fracture, spondylolysis or spondylolisthesis. No evidence of discitis/osteomyelitis. Mild degenerative disc disease at L4-5 with a posterior disc bulge and superimposed right foraminal disc protrusion. Mild right neural foraminal stenosis. No central spinal canal stenosis. Note is made of splenomegaly, perisplenic and splenorenal arises in this patient with known hepatic cirrhosis. Left shoulder pain/weakness * 2/2 Hx of fall * Left shoulder XR (12/13) - no acute dislocation or fracture, soft tissues unremarkable Diarrhea * Stool Culture/O&P (12/12) - negative for O&P, salmonella, shigella, and campylobacter * Stool negative for leukocytes and occult blood (12/12) * Serum C. diff antigen and toxin negative (12/12) * Stool C diff (Neg) and repeat leukocytes (Neg) * stool culture 12/16 negative * Patient is currently constipated and simethicone was ordered (12/27) - obstruction series ordered 12/28 was negative; patient had a BM overnight History of Seizures * Continue Keppra 500 mg PO BID * Continue Gabapentin 300 mg PO BID History of Depression * Continue Zoloft 50 mg PO daily History of Hepatitis B & C * Monitor LFTs. 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 * On old admission growth factors like Neupogen (Filgrastim) were recommended for low WBC * Heme/Onc consulted ([facility]x) - recs against IV iron supplementation at this time until infection resolves, transfusion support prn, plans to review peripheral smear, BM evaluation if counts do not return to baseline * HIV 1&2 Ab screen negative * Stool negative for occult blood Prophylactic Measure * Heparin and GI ppx held due to platelets * SCDs for now * Patient has been getting up every 2 hours and performing 10 laps around the floor * Maalox 30 ml PO once a day PRN indigestion <Chichi Dc V - Last Filed: 12/29/16 23:22> Objective - Vital Signs/Intake and Output Vital Signs (last 24 hours): Temp Pulse Resp BP Pulse Ox 98.8 F 87 20 114/78 95 12/29/16 15:24 12/29/16 16:00 12/29/16 15:24 12/29/16 18:33 12/29/16 15:24 - Medications Medications: Current Medications Al Hydrox/Mg Hydrox/Simethicone (Maalox 30 Ml) 30 ml PO DAILY [facility] Last Admin: 12/29/16 09:37 Dose: 30 ml Cyclobenzaprine HCl (Flexeril) 5 mg PO Q8H PRN PRN Reason: Muscle spasm Last Admin: 12/29/16 22:14 Dose: 5 mg Dicyclomine HCl (Bentyl) 20 mg PO Q8 PRN PRN Reason: ABDOMINAL PAIN Last Admin: 12/29/16 09:39 Dose: 20 mg Docusate Sodium (Colace) 100 mg PO BID [facility] Last Admin: 12/29/16 18:33 Dose: 100 mg Gabapentin (Neurontin) 300 mg PO BID [facility] Last Admin: 12/29/16 18:33 Dose: 300 mg Hydroxyzine HCl (Atarax) 50 mg PO Q6H PRN PRN Reason: Anxiety Last Admin: 12/27/16 22:44 Dose: 50 mg Piperacillin Sod/Tazobactam Sod (Zosyn 3.375 Gm Iv Premix) 3.375 gm in 50 mls @ 100 mls/hr IVPB Q6 [facility] Last Admin: 12/29/16 18:33 Dose: 100 mls/hr Levetiracetam (Keppra) 500 mg PO BID [facility] Last Admin: 12/29/16 18:33 Dose: 500 mg Metoprolol Tartrate (Lopressor) 25 mg PO BID [facility] Last Admin: 12/29/16 18:33 Dose: 25 mg Ondansetron HCl (Zofran Tab) 4 mg PO Q8 PRN PRN Reason: Nausea/Vomiting Last Admin: 12/27/16 08:21 Dose: 4 mg Saccharomyces Boulardii (Florastor) 250 mg PO BID [facility] Last Admin: 12/29/16 18:33 Dose: 250 mg Sertraline HCl (Zoloft) 50 mg PO DAILY [facility] Last Admin: 12/29/16 09:36 Dose: 50 mg Trazodone HCl (Desyrel) 100 mg PO HS [facility] Last Admin: 12/29/16 22:14 Dose: 100 mg - Labs Labs: 12/29/16 11:32 12/29/16 11:32 PT 14.2 SECONDS (9.7-12.2) H 08/27/17 07:08 INR 1.3 12/12/16 07:08 APTT 32 SECONDS (21-34) 12/12/16 07:08 Attending/Attestation - Attestation I have personally seen and examined this patient.: Yes I have fully participated in the care of the patient.: Yes I have reviewed all pertinent clinical information, including history, physical exam and plan: Yes Notes (Text): Patient seen, examined, and case discussed with day-time resident during rounds this morning. Patient reports he has note had a bowel movement today. Repeat blood cultures remain negative; patient to continue IV abx for 6 weeks ( on Day ; end date 01/23/17. Discussed with Resident, has attempted to call both office of Dr. Rushing but no call-back; will attempt to follow-up with cardiology Dr. Leyva. Resident did call with no response back Patient is afebrile, no elevated white count, and is currently on Day 17 of IV antibiotics; will need IV abx for 6 weeks total per ID (end date: january 23, 2017) Assessment/Plan 1) Sepsis * Criteria: WBC<4; Temp: 104 F; positive blood cultures; Lactate: 1.2 on admission * Infectious Disease (Dr. Trevino) on board * Zosyn 3.375 gm Q6H (active since 12/12/16)-->patient to complete 6 weeks of IV Abx on January * Echocardiogram (12/14/16): left ventricle systolic function is normal; EF: 60- 65%, Transmital doppler flow pattern is Grade I abnormal relaxation pattern. Right ventricular systolic function is normal. Aortic valve bioprosthetic. Mobile density seen with high velocities across Aortic valve highly suspicious for aortic valve endocarditis. recommended for CASPER * Cardiology (Dr. Leyva)-->no CASPER; patient has endocarditis * Blood cultures (12/12/16): Strep mitis X2 * Blood culture (12/14/16): No growth * Blood culture (12/16/16): No growth * Urine culture (12/12/16): no growth * Zosyn 3.375 gm Q6H (active since 12/12/16)-->patient to complete 6 weeks of IV Abx on January * Tylenol 650 mg PO Q6 prn fever. Monitor liver function tests in light of hepatitis hx 2) Endocarditis * Infectious Disease (Dr. Trevino) on board-->help appreciated * IV abx for 6 weeks * Cardiology (Dr. Leyva)-->no CASPER; patient has endocarditis * Echocardiogram (12/14/16): left ventricle systolic function is normal; EF: 60- 65%, Transmital doppler flow pattern is Grade I abnormal relaxation pattern. Right ventricular systolic function is normal. Aortic valve bioprosthetic. Mobile density seen with high velocities across Aortic valve highly suspicious for aortic valve endocarditis. recommended for CASPER * IV Abx: Zosyn 3.375 gm Q6H (active since 12/12/16) and Vancomycin discontinued * Blood cultures (12/12/16): Strep mitis X2 * Blood cultures (12/14/16): pending * Risk factors: +murmur, IV drug use (2 major in Daily's Criteria) * Chest Xray (12/16/16): CXR: Right-sided central venous catheter extends to the cavoatrial junction. Mild left basilar atelectasis/infiltrate and or small pleural effusion. Median sternotomy wires. Cardiomegaly. 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 Mild degenerative disc disease at L4-5 with a posterior disc bulge and superimposed right foraminal disc protrusion. Mild right neural foraminal stenosis. No central spinal canal stenosis. Note is made of splenomegaly, perisplenic and splenorenal arises in this patient with known hepatic cirrhosis. * Flexeril 5mg PO TID prn muscle spasm 6) Diarrhea * Resolved * Stool culture/O&P (12/12): negative for O&P, salmonella, shigella, and campylobacter * Stool negative for leukocytes and occult blood * Serum C. Diff antigen and toxin: negative 7) Constipation * Resolved * Obstructive series (12/28/16): moderate constipation * Had BM following obstructive series. * Start Colace 100mg PO bid 8) History of Seizures * Continue Keppra 500 mg PO BID * Continue Gabapentin 300 mg PO BID 9) History of Depression * Continue Zoloft 50 mg PO daily 9) History of Hepatitis B & C * Monitor LFTs. Currently WNL 10) Pancytopenia * Heme-Onc (Dr. 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 On old admission growth factors like Neupogen (Filgrastim) were recommended for low WBC. * Monitor H/H and platelets 11) Prophylactic Measure * Heparin and GI ppx held due thrombocytopenia * SCDs * Florastor 250mg PO bid
[2016-12-29] MEDS: Saccharomyces Boulardi 250 mg Cap PO SCH ×2 (09:36→18:33)
[2016-12-29] MEDS: Aluminum Hydroxide/Magnesium Hydroxide Susp (30 mL) PO SCH (09:37)
[2016-12-29 11:42] LABS: EOS # 0.1 K/uL (0.0-0.7); EOS % 1.4 % (0.0-4.0); HEMATOCRIT 28.7 % (35.0-51.0); LYMPH # 0.6 K/uL (1.0-4.3); LYMPH % 15.3 % (20.0-40.0); MEAN CELL VOLUME 78.1 fL (80.0-94.0); MEAN CORPUSCULAR HEMOGLOBIN 25.9 pg (27.0-31.0); MEAN CORPUSCULAR HGB CONC 33.2 g/dL (33.0-37.0); MEAN PLATELET VOLUME 7.3 fL (7.2-11.7); MONO # 0.4 K/uL (0.0-0.8); MONO % 10.2 % (0.0-10.0); RED CELL DISTRIBUTION WIDTH 18.2 % (11.5-14.5); WHITE BLOOD COUNT 3.7 K/uL (4.8-10.8)
[2016-12-29 11:49] LABS: ALB/GLOB RATIO 0.9 (1.0-2.1); ALKALINE PHOSPHATASE 64 U/L (38-126); ALT/SGPT 44 U/L (21-72); AST/SGOT 27 U/L (17-59); BILIRUBIN,TOTAL 0.5 mg/dL (0.2-1.3); BLOOD UREA NITROGEN 15 mg/dL (9-20); CALCIUM 8.5 mg/dl (8.6-10.4); CARBON DIOXIDE 26 mmol/L (22-30); CHLORIDE 103 mmol/L (98-107); GFR AFRICAN-AMERICAN > 60; GLUCOSE,RANDOM 83 mg/dL (75-110); MAGNESIUM 1.8 mg/dL (1.6-2.3); PHOSPHOROUS 3.1 mg/dL (2.5-4.5); POTASSIUM 3.5 mmol/L (3.6-5.2); SODIUM 140 mmol/L (132-148); TOTAL PROTEIN 6.3 g/dL (6.3-8.3)
[2016-12-30] MEDS: Piperacill/Tazo 3.375gm in Dex 3.375 GM/50 ML BAG IVPB SCH ×4 (01:00→18:00)
[2016-12-30 07:40] LABS: BASO % 0.6 % (0.0-2.0); EOS # 0.1 K/uL (0.0-0.7); EOS % 1.5 % (0.0-4.0); HEMATOCRIT 28.1 % (35.0-51.0); LYMPH # 0.5 K/uL (1.0-4.3); LYMPH % 15.2 % (20.0-40.0); MEAN CELL VOLUME 77.8 fL (80.0-94.0); MEAN CORPUSCULAR HEMOGLOBIN 26.2 pg (27.0-31.0); MEAN CORPUSCULAR HGB CONC 33.7 g/dL (33.0-37.0); MEAN PLATELET VOLUME 7.3 fL (7.2-11.7); MONO # 0.3 K/uL (0.0-0.8); MONO % 8.8 % (0.0-10.0); RED CELL DISTRIBUTION WIDTH 18.3 % (11.5-14.5); WHITE BLOOD COUNT 3.3 K/uL (4.8-10.8)
[2016-12-30 07:51] LABS: CHLORIDE 108 mmol/L (98-107); POTASSIUM 4.1 mmol/L (3.6-5.2); SODIUM 141 mmol/L (132-148)
[2016-12-30 07:53] LABS: BILIRUBIN,TOTAL 0.5 mg/dL (0.2-1.3); GFR AFRICAN-AMERICAN > 60
[2016-12-30 07:54] LABS: ALB/GLOB RATIO 0.9 (1.0-2.1); ALKALINE PHOSPHATASE 59 U/L (38-126); ALT/SGPT 37 U/L (21-72); AST/SGOT 32 U/L (17-59); BLOOD UREA NITROGEN 17 mg/dL (9-20); CARBON DIOXIDE 25 mmol/L (22-30); GLUCOSE,RANDOM 111 mg/dL (75-110); PHOSPHOROUS 3.1 mg/dL (2.5-4.5); TOTAL PROTEIN 6.2 g/dL (6.3-8.3)
[2016-12-30 07:55] LABS: CALCIUM 7.4 mg/dl (8.6-10.4)
[2016-12-30] MEDS: Saccharomyces Boulardi 250 mg Cap PO SCH ×2 (09:12→17:59)
[2016-12-30] MEDS: Aluminum Hydroxide/Magnesium Hydroxide Susp (30 mL) PO SCH (09:12)
--- NOTE | 2016-12-30 17:39 | CP.PCM.PN ---
<Eliana Stewart - Last Filed: 12/30/16 17:31> Subjective - Date & Time of Evaluation Date of Evaluation: 12/30/16 Time of Evaluation: 17:32 - Subjective Subjective: Patient is seen and examined at bedside. Patient denied any acute events over night. Patient reports of no abdominal pain. Patient states he his constipation resolved and continues to have normal bowel movements. Patient denied any loza/cp/sob/f/c/n/v/d. Objective - Vital Signs/Intake and Output Vital Signs (last 24 hours): Temp Pulse Resp BP Pulse Ox 98.9 F 90 18 113/65 98 12/30/16 16:15 12/30/16 16:15 12/30/16 16:15 12/30/16 16:15 12/30/16 16:15 Intake and Output: 12/30/16 12/30/16 06:59 18:59 Output Total 500 150 Balance -500 -150 - Medications Medications: Current Medications Al Hydrox/Mg Hydrox/Simethicone (Maalox 30 Ml) 30 ml PO DAILY [facility] Last Admin: 12/30/16 09:12 Dose: 30 ml Cyclobenzaprine HCl (Flexeril) 5 mg PO Q8H PRN PRN Reason: Muscle spasm Last Admin: 12/30/16 09:12 Dose: 5 mg Dicyclomine HCl (Bentyl) 20 mg PO Q8 PRN PRN Reason: ABDOMINAL PAIN Last Admin: 12/29/16 09:39 Dose: 20 mg Docusate Sodium (Colace) 100 mg PO BID [facility] Last Admin: 12/30/16 09:12 Dose: 100 mg Gabapentin (Neurontin) 300 mg PO BID [facility] Last Admin: 12/30/16 09:12 Dose: 300 mg Hydroxyzine HCl (Atarax) 50 mg PO Q6H PRN PRN Reason: Anxiety Last Admin: 12/27/16 22:44 Dose: 50 mg Piperacillin Sod/Tazobactam Sod (Zosyn 3.375 Gm Iv Premix) 3.375 gm in 50 mls @ 100 mls/hr IVPB Q6 [facility] Stop: 01/24/17 00:00 Last Admin: 12/30/16 11:57 Dose: 100 mls/hr Levetiracetam (Keppra) 500 mg PO BID [facility] Last Admin: 12/30/16 09:12 Dose: 500 mg Metoprolol Tartrate (Lopressor) 25 mg PO BID [facility] Last Admin: 12/30/16 09:14 Dose: 25 mg Ondansetron HCl (Zofran Tab) 4 mg PO Q8 PRN PRN Reason: Nausea/Vomiting Last Admin: 12/27/16 08:21 Dose: 4 mg Saccharomyces Boulardii (Florastor) 250 mg PO BID [facility] Last Admin: 12/30/16 09:12 Dose: 250 mg Sertraline HCl (Zoloft) 50 mg PO DAILY [facility] Last Admin: 12/30/16 09:12 Dose: 50 mg Trazodone HCl (Desyrel) 100 mg PO HS [facility] Last Admin: 12/29/16 22:14 Dose: 100 mg - Labs Labs: 12/30/16 07:28 12/30/16 07:28 PT 14.2 SECONDS (9.7-12.2) H 12/12/16 07:08 INR 1.3 12/12/16 07:08 APTT 32 SECONDS (21-34) 12/12/16 07:08 - Constitutional Appears: Non-toxic, No Acute Distress - Head Exam Head Exam: NORMAL INSPECTION - Eye Exam Eye Exam: EOMI - ENT Exam ENT Exam: Mucous Membranes Moist - Respiratory Exam Respiratory Exam: Clear to Ausculation Bilateral, NORMAL BREATHING PATTERN - Cardiovascular Exam Cardiovascular Exam: REGULAR RHYTHM, Murmur (holosystolic ) - GI/Abdominal Exam GI & Abdominal Exam: Soft, Normal Bowel Sounds. absent: Distended, Tenderness - Extremities Exam Extremities Exam: Normal Inspection. absent: Pedal Edema, Tenderness - Neurological Exam Neurological Exam: Alert, Awake - Psychiatric Exam Psychiatric exam: Normal Affect, Normal Mood - Skin Skin Exam: Dry, Intact, Normal Color, Warm Assessment and Plan - Assessment and Plan (Free Text) Assessment: Bacteremia * CXR 12/12 - heterogenous infiltrate at inferior Right and Mid/inferior left lung zones vs atelectasis with likely small left pleural effusion and Right central venous line terminating at the right atrium; Repeat CXR 12/13 shows right IJ central venous line with tip in the SVC after adjustment and right lower lobe opacity with improvement * Echo 12/12: Mobile density seen with high velocities across AV highly suspicious for AV endocarditis, transmitral doppler flow pattern is grade 1 ( abnormal relaxation pattern), LV and RV systolic function normal, EF = 60-65% * Blood cultures 12/12 - Gram positive cocci in chains (Strep mitis in final read ) * Urine culture 12/12 - no growth * Cont Zosyn 3.375 gm Q6H for now and d/c Vancomycin 1 gm Q12H (12/14) - ID recs (Uriel) * 12/13 Vanc trough: 6.4 * Tylenol 650 mg PO Q6 prn fever. Due to history of hepatitis, consider switching to a different agent at some point. * [place] [facility] Patient had TTE at that time which did NOT show vegetations on valve. Patient was also seen by psychiatry at that time as well as general surgery for abscess I&D. Will attempt to obtain patient's [place] [facility] [place] with information regarding valve surgery * Dr. Willson was contacted and agreed to see the patient on consult as long as Dr. Rushing (cardiology) accepts the transfer under his care * Still waiting for call back from Dr. Rushing (who originally cared for the patient [place] [facility] as to whether he will accept the patient * If not accepted, patient will need at least 6 weeks of antibiotics here - Patient on day 18 of Zosyn (end date Jan.23) * Blood work to be changed to Sat/Mon/Wed schedule Systolic ejection murmur * Likely 2/2 aortic valve replacement x2 * Echo 12/12 showed vegetations * Cardio consult on 12/14 (Dr. Leyva): does not recommend CASPER at this time * Positive blood culture for Strep mitis (12/12/16) * Repeat Blood Cultures 12/14/16 and 12/16/16 showed NO growth at 5 days * Cont zosyn and d/c vanc per Dr. Trevino as stated above; F/U about abx coverage for strep mitis * Hx of IV drug use/porcine valve * CT surg consult (Dr. Peralta) - says should be followed up with surgeon who did original AV replacement (Dr. Willson) * See above * F/U [place] [facility] [place] original surgeon for AV valve replacement and see if he would like to accept the patient at [facility] * CXR: Right-sided central venous catheter extends to the cavoatrial junction. Mild left basilar atelectasis/infiltrate and or small pleural effusion. Median sternotomy wires. Cardiomegaly. Low back pain * lumbar spine XR - No abnormalities seen * flexeril 5mg TID * MRI lumbar spine - No acute fracture, spondylolysis or spondylolisthesis. No evidence of discitis/osteomyelitis. Mild degenerative disc disease at L4-5 with a posterior disc bulge and superimposed right foraminal disc protrusion. Mild right neural foraminal stenosis. No central spinal canal stenosis. Note is made of splenomegaly, perisplenic and splenorenal arises in this patient with known hepatic cirrhosis. Left shoulder pain/weakness * 2/2 Hx of fall * Left shoulder XR (12/13) - no acute dislocation or fracture, soft tissues unremarkable Diarrhea * Stool Culture/O&P (12/12) - negative for O&P, salmonella, shigella, and campylobacter * Stool negative for leukocytes and occult blood (12/12) * Serum C. diff antigen and toxin negative (12/12) * Stool C diff (Neg) and repeat leukocytes (Neg) * stool culture 12/16 negative * Patient is currently constipated and simethicone was ordered (12/27) - obstruction series ordered 12/28 was negative; patient had a BM overnight History of Seizures * Continue Keppra 500 mg PO BID * Continue Gabapentin 300 mg PO BID History of Depression * Continue Zoloft 50 mg PO daily History of Hepatitis B & C * Monitor LFTs. 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 * On old admission growth factors like Neupogen (Filgrastim) were recommended for low WBC * Heme/Onc consulted (Alyx) - recs against IV iron supplementation at this time until infection resolves, transfusion support prn, plans to review peripheral smear, BM evaluation if counts do not return to baseline * HIV 1&2 Ab screen negative * Stool negative for occult blood Prophylactic Measure * Heparin and GI ppx held due to platelets * SCDs for now * Patient has been getting up every 2 hours and performing 10 laps around the floor * Maalox 30 ml PO once a day PRN indigestion <Chichi Dc V - Last Filed: 12/30/16 23:18> Objective - Vital Signs/Intake and Output Vital Signs (last 24 hours): Temp Pulse Resp BP Pulse Ox 98.9 F 90 18 113/65 98 12/30/16 16:15 12/30/16 16:15 12/30/16 16:15 12/30/16 18:00 12/30/16 16:15 Intake and Output: 12/30/16 12/31/16 18:59 06:59 Output Total 150 Balance -150 - Medications Medications: Current Medications Al Hydrox/Mg Hydrox/Simethicone (Maalox 30 Ml) 30 ml PO DAILY [facility] Last Admin: 12/30/16 09:12 Dose: 30 ml Cyclobenzaprine HCl (Flexeril) 5 mg PO Q8H PRN PRN Reason: Muscle spasm Last Admin: 12/30/16 18:41 Dose: 5 mg Dicyclomine HCl (Bentyl) 20 mg PO Q8 PRN PRN Reason: ABDOMINAL PAIN Last Admin: 12/29/16 09:39 Dose: 20 mg Docusate Sodium (Colace) 100 mg PO BID [facility] Last Admin: 12/30/16 17:59 Dose: 100 mg Gabapentin (Neurontin) 300 mg PO BID [facility] Last Admin: 12/30/16 17:59 Dose: 300 mg Hydroxyzine HCl (Atarax) 50 mg PO Q6H PRN PRN Reason: Anxiety Last Admin: 12/27/16 22:44 Dose: 50 mg Piperacillin Sod/Tazobactam Sod (Zosyn 3.375 Gm Iv Premix) 3.375 gm in 50 mls @ 100 mls/hr IVPB Q6 [facility] Stop: 01/24/17 00:00 Last Admin: 12/30/16 18:00 Dose: 100 mls/hr Levetiracetam (Keppra) 500 mg PO BID [facility] Last Admin: 12/30/16 18:00 Dose: 500 mg Metoprolol Tartrate (Lopressor) 25 mg PO BID [facility] Last Admin: 12/30/16 18:00 Dose: 25 mg Ondansetron HCl (Zofran Tab) 4 mg PO Q8 PRN PRN Reason: Nausea/Vomiting Last Admin: 12/27/16 08:21 Dose: 4 mg Saccharomyces Boulardii (Florastor) 250 mg PO BID [facility] Last Admin: 12/30/16 17:59 Dose: 250 mg Sertraline HCl (Zoloft) 50 mg PO DAILY [facility] Last Admin: 12/30/16 09:12 Dose: 50 mg Trazodone HCl (Desyrel) 100 mg PO HS [facility] Last Admin: 12/30/16 21:30 Dose: 100 mg - Labs Labs: 12/30/16 07:28 12/30/16 07:28 PT 14.2 SECONDS (9.7-12.2) H 12/12/16 07:08 INR 1.3 12/12/16 07:08 APTT 32 SECONDS (21-34) 12/12/16 07:08 Attending/Attestation - Attestation I have personally seen and examined this patient.: Yes I have fully participated in the care of the patient.: Yes I have reviewed all pertinent clinical information, including history, physical exam and plan: Yes Notes (Text): Patient seen, examined, and case discussed with day-time resident during rounds this morning. Patient denies acute complaints today. Patient to continue IV abx for 6 weeks (on Day ; end date 01/23/17.) Discussed with Resident, has attempted to call cardiology but no call has been received back. Will space out patient's blood work to 3x/week instead of daily blood work. Assessment/Plan 1) Sepsis * Criteria: WBC<4; Temp: 104 F; positive blood cultures; Lactate: 1.2 on admission * Infectious Disease (Dr. Trevino) on board * Zosyn 3.375 gm Q6H (active since 12/12/16)-->patient to complete 6 weeks of IV Abx on January * Echocardiogram (12/14/16): left ventricle systolic function is normal; EF: 60- 65%, Transmital doppler flow pattern is Grade I abnormal relaxation pattern. Right ventricular systolic function is normal. Aortic valve bioprosthetic. Mobile density seen with high velocities across Aortic valve highly suspicious for aortic valve endocarditis. recommended for CASPER * Cardiology (Dr. Leyva)-->no CASPER; patient has endocarditis * Blood cultures (12/12/16): Strep mitis X2 * Blood culture (12/14/16): No growth * Blood culture (12/16/16): No growth * Urine culture (12/12/16): no growth * Zosyn 3.375 gm Q6H (active since 12/12/16)-->patient to complete 6 weeks of IV Abx on January * Tylenol 650 mg PO Q6 prn fever. Monitor liver function tests in light of hepatitis hx 2) Endocarditis * Infectious Disease (Dr. Trevino) on board-->help appreciated * IV abx for 6 weeks * Cardiology (Dr. Leyva)-->no CASPER; patient has endocarditis * Echocardiogram (12/14/16): left ventricle systolic function is normal; EF: 60- 65%, Transmital doppler flow pattern is Grade I abnormal relaxation pattern. Right ventricular systolic function is normal. Aortic valve bioprosthetic. Mobile density seen with high velocities across Aortic valve highly suspicious for aortic valve endocarditis. recommended for CASPER * IV Abx: Zosyn 3.375 gm Q6H (active since 12/12/16) and Vancomycin discontinued * Blood cultures (12/12/16): Strep mitis X2 * Blood cultures (12/14/16): pending * Risk factors: +murmur, IV drug use (2 major in Daily's Criteria) * Chest Xray (12/16/16): CXR: Right-sided central venous catheter extends to the cavoatrial junction. Mild left basilar atelectasis/infiltrate and or small pleural effusion. Median sternotomy wires. Cardiomegaly. 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 Mild degenerative disc disease at L4-5 with a posterior disc bulge and superimposed right foraminal disc protrusion. Mild right neural foraminal stenosis. No central spinal canal stenosis. Note is made of splenomegaly, perisplenic and splenorenal arises in this patient with known hepatic cirrhosis. * Flexeril 5mg PO TID prn muscle spasm 6) Diarrhea * Resolved * Stool culture/O&P (12/12): negative for O&P, salmonella, shigella, and campylobacter * Stool negative for leukocytes and occult blood * Serum C. Diff antigen and toxin: negative 7) Constipation * Resolved * Obstructive series (12/28/16): moderate constipation * Had BM following obstructive series. * Start Colace 100mg PO bid 8) History of Seizures * Continue Keppra 500 mg PO BID * Continue Gabapentin 300 mg PO BID 9) History of Depression * Continue Zoloft 50 mg PO daily 9) History of Hepatitis B & C * Monitor LFTs. Currently WNL 10) Pancytopenia * Heme-Onc (Dr. 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 On old admission growth factors like Neupogen (Filgrastim) were recommended for low WBC. * Monitor H/H and platelets 11) Prophylactic Measure * Heparin and GI ppx held due thrombocytopenia * SCDs * Florastor 250mg PO bid Disposition: Patient complete 6 weeks of IV abx. End date: 01/23/17
[2016-12-31] MEDS: Piperacill/Tazo 3.375gm in Dex 3.375 GM/50 ML BAG IVPB SCH ×4 (00:47→18:30)
[2016-12-31 08:11] LABS: BASO % 0.5 % (0.0-2.0); EOS # 0.1 K/uL (0.0-0.7); EOS % 1.7 % (0.0-4.0); HEMATOCRIT 28.6 % (35.0-51.0); LYMPH # 0.6 K/uL (1.0-4.3); LYMPH % 13.8 % (20.0-40.0); MEAN CELL VOLUME 77.4 fL (80.0-94.0); MEAN CORPUSCULAR HGB CONC 33.5 g/dL (33.0-37.0); MEAN PLATELET VOLUME 7.6 fL (7.2-11.7); MONO # 0.4 K/uL (0.0-0.8); MONO % 7.6 % (0.0-10.0); RED CELL DISTRIBUTION WIDTH 17.9 % (11.5-14.5); WHITE BLOOD COUNT 4.6 K/uL (4.8-10.8)
[2016-12-31 08:25] LABS: CHLORIDE 105 mmol/L (98-107); POTASSIUM 3.7 mmol/L (3.6-5.2); SODIUM 139 mmol/L (132-148)
[2016-12-31 08:27] LABS: GFR AFRICAN-AMERICAN > 60
[2016-12-31 08:28] LABS: ALB/GLOB RATIO 0.9 (1.0-2.1); ALKALINE PHOSPHATASE 63 U/L (38-126); ALT/SGPT 38 U/L (21-72); AST/SGOT 26 U/L (17-59); BILIRUBIN,TOTAL 0.5 mg/dL (0.2-1.3); BLOOD UREA NITROGEN 13 mg/dL (9-20); CALCIUM 8.3 mg/dl (8.6-10.4); CARBON DIOXIDE 25 mmol/L (22-30); GLUCOSE,RANDOM 78 mg/dL (75-110); MAGNESIUM 1.7 mg/dL (1.6-2.3); PHOSPHOROUS 2.8 mg/dL (2.5-4.5); TOTAL PROTEIN 6.4 g/dL (6.3-8.3)
[2016-12-31] MEDS: Aluminum Hydroxide/Magnesium Hydroxide Susp (30 mL) PO SCH (10:17)
[2016-12-31] MEDS: Saccharomyces Boulardi 250 mg Cap PO SCH ×2 (10:17→18:30)
--- NOTE | 2016-12-31 16:30 | CP.PCM.PN ---
<TerryEliana - Last Filed: 12/31/16 16:26> Subjective - Date & Time of Evaluation Date of Evaluation: 12/31/16 Time of Evaluation: 16:30 - Subjective Subjective: Patient seen and examined at bedside. The patient states that he feels fine and slept moderately well. He complains of back pain which he describes of throbbing and is localized to the right side of his lower back, however this is not new for him and is controlled with his flexeril. ROS: General: (-) Fever or chills HEENT: (-) BOWDEN or visual changes Cardio: (-) Chest pain or palpitations Resp: (-) SOB or cough GI: (-) N/V/D/C/Abdominal pain : (-) Hematuria or dysuria MSK: (-) LE swelling or pain Objective - Vital Signs/Intake and Output Vital Signs (last 24 hours): Temp Pulse Resp BP Pulse Ox 99.3 F 92 H 20 130/87 99 12/31/16 07:00 12/31/16 10:00 12/31/16 07:00 12/31/16 10:19 12/31/16 07:00 Intake and Output: 12/31/16 12/31/16 06:59 18:59 Intake Total 340 Output Total 800 Balance -460 - Medications Medications: Current Medications Al Hydrox/Mg Hydrox/Simethicone (Maalox 30 Ml) 30 ml PO DAILY [facility] Last Admin: 12/31/16 10:17 Dose: 30 ml Cyclobenzaprine HCl (Flexeril) 5 mg PO Q8H PRN PRN Reason: Muscle spasm Last Admin: 12/31/16 12:24 Dose: 5 mg Dicyclomine HCl (Bentyl) 20 mg PO Q8 PRN PRN Reason: ABDOMINAL PAIN Last Admin: 12/29/16 09:39 Dose: 20 mg Docusate Sodium (Colace) 100 mg PO BID [facility] Last Admin: 12/31/16 10:17 Dose: 100 mg Gabapentin (Neurontin) 300 mg PO BID [facility] Last Admin: 12/31/16 10:17 Dose: 300 mg Hydroxyzine HCl (Atarax) 50 mg PO Q6H PRN PRN Reason: Anxiety Last Admin: 12/27/16 22:44 Dose: 50 mg Piperacillin Sod/Tazobactam Sod (Zosyn 3.375 Gm Iv Premix) 3.375 gm in 50 mls @ 100 mls/hr IVPB Q6 [facility] Stop: 01/24/17 00:00 Last Admin: 12/31/16 12:24 Dose: 100 mls/hr Levetiracetam (Keppra) 500 mg PO BID [facility] Last Admin: 12/31/16 10:17 Dose: 500 mg Metoprolol Tartrate (Lopressor) 25 mg PO BID [facility] Last Admin: 12/31/16 10:19 Dose: 25 mg Ondansetron HCl (Zofran Tab) 4 mg PO Q8 PRN PRN Reason: Nausea/Vomiting Last Admin: 12/27/16 08:21 Dose: 4 mg Saccharomyces Boulardii (Florastor) 250 mg PO BID [facility] Last Admin: 12/31/16 10:17 Dose: 250 mg Sertraline HCl (Zoloft) 50 mg PO DAILY [facility] Last Admin: 12/31/16 10:17 Dose: 50 mg Trazodone HCl (Desyrel) 100 mg PO HS [facility] Last Admin: 12/30/16 21:30 Dose: 100 mg - Labs Labs: 12/31/16 07:56 12/31/16 07:56 PT 14.2 SECONDS (9.7-12.2) H 12/12/16 07:08 INR 1.3 12/12/16 07:08 APTT 32 SECONDS (21-34) 12/12/16 07:08 - Constitutional Appears: Non-toxic, No Acute Distress - Head Exam Head Exam: NORMAL INSPECTION - Eye Exam Eye Exam: EOMI - ENT Exam ENT Exam: Mucous Membranes Moist - Respiratory Exam Respiratory Exam: Clear to Ausculation Bilateral, NORMAL BREATHING PATTERN - Cardiovascular Exam Cardiovascular Exam: REGULAR RHYTHM, Murmur (pansystolic ) - GI/Abdominal Exam GI & Abdominal Exam: Soft, Normal Bowel Sounds. absent: Tenderness - Extremities Exam Extremities Exam: Normal Inspection - Neurological Exam Neurological Exam: Alert, Awake - Psychiatric Exam Psychiatric exam: Normal Affect, Normal Mood - Skin Skin Exam: Dry, Intact, Normal Color, Warm Assessment and Plan - Assessment and Plan (Free Text) Assessment: Bacteremia * CXR 12/12 - heterogenous infiltrate at inferior Right and Mid/inferior left lung zones vs atelectasis with likely small left pleural effusion and Right central venous line terminating at the right atrium; Repeat CXR 12/13 shows right IJ central venous line with tip in the SVC after adjustment and right lower lobe opacity with improvement * Echo 12/12: Mobile density seen with high velocities across AV highly suspicious for AV endocarditis, transmitral doppler flow pattern is grade 1 ( abnormal relaxation pattern), LV and RV systolic function normal, EF = 60-65% * Blood cultures 12/12 - Gram positive cocci in chains (Strep mitis in final read ) * Urine culture 12/12 - no growth * Cont Zosyn 3.375 gm Q6H for now and d/c Vancomycin 1 gm Q12H (12/14) - ID recs (Uriel) * 12/13 Vanc trough: 6.4 * Tylenol 650 mg PO Q6 prn fever. Due to history of hepatitis, consider switching to a different agent at some point. * Patient seen at [facility] in 09/2016. Patient had TTE at that time which did NOT show vegetations on valve. Patient was also seen by psychiatry at that time as well as general surgery for abscess I&D. Will attempt to obtain patient's March [facility] medical records with information regarding valve surgery * Dr. Willson was contacted and agreed to see the patient on consult as long as Dr. Rushing (cardiology) accepts the transfer under his care * Still waiting for call back from Dr. Rushing (who originally cared for the patient at [facility]) as to whether he will accept the patient * If not accepted, patient will need at least 6 weeks of antibiotics here - Patient on day of Zosyn (end date Jan.23) * Blood work to be changed to Sat/Mon/Wed schedule Systolic ejection murmur * Likely 2/2 aortic valve replacement x2 * Echo 12/12 showed vegetations * Cardio consult on 12/14 (Dr. Leyva): does not recommend CASPER at this time * Positive blood culture for Strep mitis (12/12/16) * Repeat Blood Cultures 12/14/16 and 12/16/16 showed NO growth at 5 days * Cont zosyn and d/c vanc per Dr. Trevino as stated above; F/U about abx coverage for strep mitis * Hx of IV drug use/porcine valve * CT surg consult (Dr. Peralta) - says should be followed up with surgeon who did original AV replacement (Dr. Willson) * See above * F/U Medical records from [facility] - call original surgeon for AV valve replacement and see if he would like to accept the patient at [facility] * CXR: Right-sided central venous catheter extends to the cavoatrial junction. Mild left basilar atelectasis/infiltrate and or small pleural effusion. Median sternotomy wires. Cardiomegaly. Low back pain * lumbar spine XR - No abnormalities seen * flexeril 5mg TID * MRI lumbar spine - No acute fracture, spondylolysis or spondylolisthesis. No evidence of discitis/osteomyelitis. Mild degenerative disc disease at L4-5 with a posterior disc bulge and superimposed right foraminal disc protrusion. Mild right neural foraminal stenosis. No central spinal canal stenosis. Note is made of splenomegaly, perisplenic and splenorenal arises in this patient with known hepatic cirrhosis. Left shoulder pain/weakness * 2/2 Hx of fall * Left shoulder XR (12/13) - no acute dislocation or fracture, soft tissues unremarkable Diarrhea * Stool Culture/O&P (12/12) - negative for O&P, salmonella, shigella, and campylobacter * Stool negative for leukocytes and occult blood (12/12) * Serum C. diff antigen and toxin negative (12/12) * Stool C diff (Neg) and repeat leukocytes (Neg) * stool culture 12/16 negative * Patient is currently constipated and simethicone was ordered (12/27) - obstruction series ordered 12/28 was negative; patient had a BM overnight History of Seizures * Continue Keppra 500 mg PO BID * Continue Gabapentin 300 mg PO BID History of Depression * Continue Zoloft 50 mg PO daily History of Hepatitis B & C * Monitor LFTs. 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 * On old admission growth factors like Neupogen (Filgrastim) were recommended for low WBC * Heme/Onc consulted ([facility]lyx) - recs against IV iron supplementation at this time until infection resolves, transfusion support prn, plans to review peripheral smear, BM evaluation if counts do not return to baseline * HIV 1&2 Ab screen negative * Stool negative for occult blood Prophylactic Measure * Heparin and GI ppx held due to platelets * SCDs for now * Patient has been getting up every 2 hours and performing 10 laps around the floor * Maalox 30 ml PO once a day PRN indigestion Disposition: Patient on day of Zosyn (end date Jan.23). Blood work on Sat/Mon/Wed schedule. <Chichi Dc V - Last Filed: 01/01/17 14:50> Objective - Vital Signs/Intake and Output Vital Signs (last 24 hours): Temp Pulse Resp BP Pulse Ox 98.1 F 101 H 20 123/80 96 01/01/17 07:00 01/01/17 10:00 01/01/17 07:00 01/01/17 09:20 01/01/17 07:00 Intake and Output: 01/01/17 01/01/17 06:59 18:59 Intake Total 870 Output Total 1400 Balance -530 - Medications Medications: Current Medications Al Hydrox/Mg Hydrox/Simethicone (Maalox 30 Ml) 30 ml PO DAILY [facility] Last Admin: 01/01/17 09:19 Dose: 30 ml Cyclobenzaprine HCl (Flexeril) 5 mg PO Q8H PRN PRN Reason: Muscle spasm Last Admin: 01/01/17 09:19 Dose: 5 mg Dicyclomine HCl (Bentyl) 20 mg PO Q8 PRN PRN Reason: ABDOMINAL PAIN Last Admin: 12/29/16 09:39 Dose: 20 mg Docusate Sodium (Colace) 100 mg PO BID [facility] Last Admin: 01/01/17 09:19 Dose: 100 mg Gabapentin (Neurontin) 300 mg PO BID [facility] Last Admin: 01/01/17 09:19 Dose: 300 mg Hydroxyzine HCl (Atarax) 50 mg PO Q6H PRN PRN Reason: Anxiety Last Admin: 12/27/16 22:44 Dose: 50 mg Piperacillin Sod/Tazobactam Sod (Zosyn 3.375 Gm Iv Premix) 3.375 gm in 50 mls @ 100 mls/hr IVPB Q6 [facility] Stop: 01/24/17 00:00 Last Admin: 01/01/17 12:27 Dose: 100 mls/hr Levetiracetam (Keppra) 500 mg PO BID [facility] Last Admin: 01/01/17 09:20 Dose: 500 mg Metoprolol Tartrate (Lopressor) 25 mg PO BID [facility] Last Admin: 01/01/17 09:20 Dose: 25 mg Ondansetron HCl (Zofran Tab) 4 mg PO Q8 PRN PRN Reason: Nausea/Vomiting Last Admin: 12/27/16 08:21 Dose: 4 mg Saccharomyces Boulardii (Florastor) 250 mg PO BID [facility] Last Admin: 01/01/17 09:19 Dose: 250 mg Sertraline HCl (Zoloft) 50 mg PO DAILY [facility] Last Admin: 01/01/17 09:20 Dose: 50 mg Trazodone HCl (Desyrel) 100 mg PO HS [facility] Last Admin: 12/31/16 22:56 Dose: 100 mg - Labs Labs: 01/01/17 07:09 01/01/17 07:09 PT 14.2 SECONDS (9.7-12.2) H 12/12/16 07:08 INR 1.3 12/12/16 07:08 APTT 32 SECONDS (21-34) 12/12/16 07:08 Attending/Attestation - Attestation I have personally seen and examined this patient.: Yes I have fully participated in the care of the patient.: Yes I have reviewed all pertinent clinical information, including history, physical exam and plan: Yes Notes (Text): This is late computer entry for 12/31/16. Patient seen, examined, and case discussed with day-time resident during rounds. Patient reporting mild low back pain but it is controlled. Patient is relaxed in bed. Advised to walk around to prevent DVT which he reports he does. Patient to continue IV abx for 6 weeks (on ; end date 01/23/17) Discussed with Resident, has attempted to call cardiology but no call has been received back. Will space out patient's blood work to 3x/week instead of daily blood work. Assessment/Plan 1) Sepsis * Criteria: WBC<4; Temp: 104 F; positive blood cultures; Lactate: 1.2 on admission * Infectious Disease (Dr. Trevino) on board * Zosyn 3.375 gm Q6H (active since 12/12/16)-->patient to complete 6 weeks of IV Abx on January * Echocardiogram (12/14/16): left ventricle systolic function is normal; EF: 60- 65%, Transmital doppler flow pattern is Grade I abnormal relaxation pattern. Right ventricular systolic function is normal. Aortic valve bioprosthetic. Mobile density seen with high velocities across Aortic valve highly suspicious for aortic valve endocarditis. recommended for CASPER * Cardiology (Dr. Leyva)-->no CASPER; patient has endocarditis * Blood cultures (12/12/16): Strep mitis X2 * Blood culture (12/14/16): No growth * Blood culture (12/16/16): No growth * Urine culture (12/12/16): no growth * Zosyn 3.375 gm Q6H (active since 12/12/16)-->patient to complete 6 weeks of IV Abx on January * Tylenol 650 mg PO Q6 prn fever. Monitor liver function tests in light of hepatitis hx 2) Endocarditis * Infectious Disease (Dr. Trevino) on board-->help appreciated * IV abx for 6 weeks * Cardiology (Dr. Leyva)-->no CASPER; patient has endocarditis * Echocardiogram (12/14/16): left ventricle systolic function is normal; EF: 60- 65%, Transmital doppler flow pattern is Grade I abnormal relaxation pattern. Right ventricular systolic function is normal. Aortic valve bioprosthetic. Mobile density seen with high velocities across Aortic valve highly suspicious for aortic valve endocarditis. recommended for CASPER * IV Abx: Zosyn 3.375 gm Q6H (active since 12/12/16) and Vancomycin discontinued * Blood cultures (12/12/16): Strep mitis X2 * Blood cultures (12/14/16): pending * Risk factors: +murmur, IV drug use (2 major in Daily's Criteria) * Chest Xray (12/16/16): CXR: Right-sided central venous catheter extends to the cavoatrial junction. Mild left basilar atelectasis/infiltrate and or small pleural effusion. Median sternotomy wires. Cardiomegaly. 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 Mild degenerative disc disease at L4-5 with a posterior disc bulge and superimposed right foraminal disc protrusion. Mild right neural foraminal stenosis. No central spinal canal stenosis. Note is made of splenomegaly, perisplenic and splenorenal arises in this patient with known hepatic cirrhosis. * Flexeril 5mg PO TID prn muscle spasm 6) Diarrhea * Resolved * Stool culture/O&P (12/12): negative for O&P, salmonella, shigella, and campylobacter * Stool negative for leukocytes and occult blood * Serum C. Diff antigen and toxin: negative 7) Constipation * Resolved * Obstructive series (12/28/16): moderate constipation * Had BM following obstructive series. * Start Colace 100mg PO bid 8) History of Seizures * Continue Keppra 500 mg PO BID * Continue Gabapentin 300 mg PO BID 9) History of Depression * Continue Zoloft 50 mg PO daily 9) History of Hepatitis B & C * Monitor LFTs. Currently WNL 10) Pancytopenia * Heme-Onc (Dr. 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 On old admission growth factors like Neupogen (Filgrastim) were recommended for low WBC. * Monitor H/H and platelets 11) Prophylactic Measure * Heparin and GI ppx held due thrombocytopenia * SCDs * Florastor 250mg PO bid Disposition: Patient complete 6 weeks of IV abx. End date: 01/23/17
[2017-01-01] MEDS: Piperacill/Tazo 3.375gm in Dex 3.375 GM/50 ML BAG IVPB SCH ×4 (00:20→17:31)
--- NOTE | 2017-01-01 05:53 | CP.PCM.PN ---
<Roselia Camacho - Last Filed: 01/01/17 05:51> Subjective - Date & Time of Evaluation Date of Evaluation: 01/01/17 Time of Evaluation: 00:00 - Subjective Subjective: Medicine Progress Note: Patient was seen and examined at bedside. Patient states he has chronic low back pain that comes and goes. Patient denies chest pain, shortness of breath, nausea, vomiting, diarrhea or constipation. Objective - Vital Signs/Intake and Output Vital Signs (last 24 hours): Temp Pulse Resp BP Pulse Ox 97.8 F 93 H 20 109/70 96 01/01/17 04:43 01/01/17 04:43 01/01/17 04:43 01/01/17 04:43 01/01/17 04:43 Intake and Output: 12/31/16 01/01/17 18:59 06:59 Intake Total 530 Output Total 750 Balance -220 - Medications Medications: Current Medications Al Hydrox/Mg Hydrox/Simethicone (Maalox 30 Ml) 30 ml PO DAILY [facility] Last Admin: 12/31/16 10:17 Dose: 30 ml Cyclobenzaprine HCl (Flexeril) 5 mg PO Q8H PRN PRN Reason: Muscle spasm Last Admin: 12/31/16 20:49 Dose: 5 mg Dicyclomine HCl (Bentyl) 20 mg PO Q8 PRN PRN Reason: ABDOMINAL PAIN Last Admin: 12/29/16 09:39 Dose: 20 mg Docusate Sodium (Colace) 100 mg PO BID [facility] Last Admin: 12/31/16 18:30 Dose: 100 mg Gabapentin (Neurontin) 300 mg PO BID [facility] Last Admin: 12/31/16 18:30 Dose: 300 mg Hydroxyzine HCl (Atarax) 50 mg PO Q6H PRN PRN Reason: Anxiety Last Admin: 12/27/16 22:44 Dose: 50 mg Piperacillin Sod/Tazobactam Sod (Zosyn 3.375 Gm Iv Premix) 3.375 gm in 50 mls @ 100 mls/hr IVPB Q6 [facility] Stop: 01/24/17 00:00 Last Admin: 01/01/17 05:49 Dose: 100 mls/hr Levetiracetam (Keppra) 500 mg PO BID [facility] Last Admin: 12/31/16 18:30 Dose: 500 mg Metoprolol Tartrate (Lopressor) 25 mg PO BID [facility] Last Admin: 12/31/16 18:30 Dose: 25 mg Ondansetron HCl (Zofran Tab) 4 mg PO Q8 PRN PRN Reason: Nausea/Vomiting Last Admin: 12/27/16 08:21 Dose: 4 mg Saccharomyces Boulardii (Florastor) 250 mg PO BID [facility] Last Admin: 12/31/16 18:30 Dose: 250 mg Sertraline HCl (Zoloft) 50 mg PO DAILY [facility] Last Admin: 12/31/16 10:17 Dose: 50 mg Trazodone HCl (Desyrel) 100 mg PO HS [facility] Last Admin: 12/31/16 22:56 Dose: 100 mg - Labs Labs: 12/31/16 07:56 12/31/16 07:56 PT 14.2 SECONDS (9.7-12.2) H 12/12/16 07:08 INR 1.3 12/12/16 07:08 APTT 32 SECONDS (21-34) 12/12/16 07:08 - Constitutional Appears: No Acute Distress - Head Exam Head Exam: ATRAUMATIC, NORMAL INSPECTION, NORMOCEPHALIC - Eye Exam Eye Exam: EOMI, Normal appearance, PERRL Pupil Exam: NORMAL ACCOMODATION - ENT Exam ENT Exam: Mucous Membranes Moist - Respiratory Exam Respiratory Exam: Clear to Ausculation Bilateral, NORMAL BREATHING PATTERN - Cardiovascular Exam Cardiovascular Exam: REGULAR RHYTHM, +S1, +S2 - GI/Abdominal Exam GI & Abdominal Exam: Soft, Normal Bowel Sounds. absent: Tenderness - Extremities Exam Extremities Exam: Normal Inspection - Neurological Exam Neurological Exam: Alert, Awake, Oriented x3 - Psychiatric Exam Psychiatric exam: Normal Affect, Normal Mood - Skin Skin Exam: Normal Color, Warm Assessment and Plan - Assessment and Plan (Free Text) Assessment: Bacteremia * CXR 12/12 - heterogenous infiltrate at inferior Right and Mid/inferior left lung zones vs atelectasis with likely small left pleural effusion and Right central venous line terminating at the right atrium; Repeat CXR 12/13 shows right IJ central venous line with tip in the SVC after adjustment and right lower lobe opacity with improvement * Echo 12/12: Mobile density seen with high velocities across AV highly suspicious for AV endocarditis, transmitral doppler flow pattern is grade 1 ( abnormal relaxation pattern), LV and RV systolic function normal, EF = 60-65% * Blood cultures 12/12 - Gram positive cocci in chains (Strep mitis in final read ) * Urine culture 12/12 - no growth * Cont Zosyn 3.375 gm Q6H for now and d/c Vancomycin 1 gm Q12H (12/14) - ID recs (Uriel) * 12/13 Vanc trough: 6.4 * Tylenol 650 mg PO Q6 prn fever. Due to history of hepatitis, consider switching to a different agent at some point. * Patient seen at [facility] [place]. Patient had TTE at that time which did NOT show vegetations on valve. Patient was also seen by psychiatry at that time as well as general surgery for abscess I&D. Will attempt to obtain patient's March [facility] medical records with information regarding valve surgery * Dr. Willson was contacted and agreed to see the patient on consult as long as Dr. Rushing (cardiology) accepts the transfer under his care * Still waiting for call back from Dr. Rushing (who originally cared for the patient at [facility]) as to whether he will accept the patient * If not accepted, patient will need at least 6 weeks of antibiotics here - Patient on day of Zosyn (end date Jan.23) * Blood work to be changed to Sat/Mon/Wed schedule Systolic ejection murmur * Likely 2/2 aortic valve replacement x2 * Echo 12/12 showed vegetations * Cardio consult on 12/14 (Dr. Leyva): does not recommend CASPER at this time * Positive blood culture for Strep mitis (12/12/16) * Repeat Blood Cultures 12/14/16 and 12/16/16 showed NO growth at 5 days * Cont zosyn and d/c vanc per Dr. Trevino as stated above; F/U about abx coverage for strep mitis * Hx of IV drug use/porcine valve * CT surg consult (Dr. Peralta) - says should be followed up with surgeon who did original AV replacement (Dr. Willson) * See above * F/U Medical records from [facility] - call original surgeon for AV valve replacement and see if he would like to accept the patient at [facility] * CXR: Right-sided central venous catheter extends to the cavoatrial junction. Mild left basilar atelectasis/infiltrate and or small pleural effusion. Median sternotomy wires. Cardiomegaly. Low back pain * lumbar spine XR - No abnormalities seen * flexeril 5mg TID * MRI lumbar spine - No acute fracture, spondylolysis or spondylolisthesis. No evidence of discitis/osteomyelitis. Mild degenerative disc disease at L4-5 with a posterior disc bulge and superimposed right foraminal disc protrusion. Mild right neural foraminal stenosis. No central spinal canal stenosis. Note is made of splenomegaly, perisplenic and splenorenal arises in this patient with known hepatic cirrhosis. Left shoulder pain/weakness * 2/2 Hx of fall * Left shoulder XR (12/13) - no acute dislocation or fracture, soft tissues unremarkable Diarrhea * Stool Culture/O&P (12/12) - negative for O&P, salmonella, shigella, and campylobacter * Stool negative for leukocytes and occult blood (12/12) * Serum C. diff antigen and toxin negative (12/12) * Stool C diff (Neg) and repeat leukocytes (Neg) * stool culture 12/16 negative * Patient is currently constipated and simethicone was ordered (12/27) - obstruction series ordered 12/28 was negative; patient had a BM overnight History of Seizures * Continue Keppra 500 mg PO BID * Continue Gabapentin 300 mg PO BID History of Depression * Continue Zoloft 50 mg PO daily History of Hepatitis B & C * Monitor LFTs. 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 * On old admission growth factors like Neupogen (Filgrastim) were recommended for low WBC * Heme/Onc consulted ([facility]lyx) - recs against IV iron supplementation at this time until infection resolves, transfusion support prn, plans to review peripheral smear, BM evaluation if counts do not return to baseline * HIV 1&2 Ab screen negative * Stool negative for occult blood Prophylactic Measure * Heparin and GI ppx held due to platelets * SCDs for now * Patient has been getting up every 2 hours and performing 10 laps around the floor * Maalox 30 ml PO once a day PRN indigestion Disposition: Patient on day of Zosyn (end date Jan.23). Blood work on Sat/Mon/Tue schedule. <Chichi Dc V - Last Filed: 01/01/17 14:56> Objective - Vital Signs/Intake and Output Vital Signs (last 24 hours): Temp Pulse Resp BP Pulse Ox 98.1 F 101 H 20 123/80 96 01/01/17 07:00 01/01/17 10:00 01/01/17 07:00 01/01/17 09:20 01/01/17 07:00 Intake and Output: 01/01/17 01/01/17 06:59 18:59 Intake Total 870 Output Total 1400 Balance -530 - Medications Medications: Current Medications Al Hydrox/Mg Hydrox/Simethicone (Maalox 30 Ml) 30 ml PO DAILY [facility] Last Admin: 01/01/17 09:19 Dose: 30 ml Cyclobenzaprine HCl (Flexeril) 5 mg PO Q8H PRN PRN Reason: Muscle spasm Last Admin: 01/01/17 09:19 Dose: 5 mg Dicyclomine HCl (Bentyl) 20 mg PO Q8 PRN PRN Reason: ABDOMINAL PAIN Last Admin: 12/29/16 09:39 Dose: 20 mg Docusate Sodium (Colace) 100 mg PO BID [facility] Last Admin: 01/01/17 09:19 Dose: 100 mg Gabapentin (Neurontin) 300 mg PO BID [facility] Last Admin: 01/01/17 09:19 Dose: 300 mg Hydroxyzine HCl (Atarax) 50 mg PO Q6H PRN PRN Reason: Anxiety Last Admin: 12/27/16 22:44 Dose: 50 mg Piperacillin Sod/Tazobactam Sod (Zosyn 3.375 Gm Iv Premix) 3.375 gm in 50 mls @ 100 mls/hr IVPB Q6 [facility] Stop: 01/24/17 00:00 Last Admin: 01/01/17 12:27 Dose: 100 mls/hr Levetiracetam (Keppra) 500 mg PO BID [facility] Last Admin: 01/01/17 09:20 Dose: 500 mg Metoprolol Tartrate (Lopressor) 25 mg PO BID [facility] Last Admin: 01/01/17 09:20 Dose: 25 mg Ondansetron HCl (Zofran Tab) 4 mg PO Q8 PRN PRN Reason: Nausea/Vomiting Last Admin: 12/27/16 08:21 Dose: 4 mg Saccharomyces Boulardii (Florastor) 250 mg PO BID [facility] Last Admin: 01/01/17 09:19 Dose: 250 mg Sertraline HCl (Zoloft) 50 mg PO DAILY [facility] Last Admin: 01/01/17 09:20 Dose: 50 mg Trazodone HCl (Desyrel) 100 mg PO HS [facility] Last Admin: 12/31/16 22:56 Dose: 100 mg - Labs Labs: 01/01/17 07:09 01/01/17 07:09 PT 14.2 SECONDS (9.7-12.2) H 12/12/16 07:08 INR 1.3 12/12/16 07:08 APTT 32 SECONDS (21-34) 12/12/16 07:08 Attending/Attestation - Attestation I have personally seen and examined this patient.: Yes I have fully participated in the care of the patient.: Yes I have reviewed all pertinent clinical information, including history, physical exam and plan: Yes Notes (Text): Patient seen, examined, and case discussed with day-time resident during rounds. Patient reporting mild low back pain but it is controlled. Patient is relaxed in bed. Advised to walk around to prevent DVT which he reports he does. Patient to continue IV abx for 6 weeks (on Day ; end date 01/23/17) Will space out patient's blood work to 3x/week instead of daily blood work. Assessment/Plan 1) Sepsis * Criteria: WBC<4; Temp: 104 F; positive blood cultures; Lactate: 1.2 on admission * Infectious Disease (Dr. Trevino) on board * Zosyn 3.375 gm Q6H (active since 12/12/16)-->patient to complete 6 weeks of IV Abx on January * Echocardiogram (12/14/16): left ventricle systolic function is normal; EF: 60- 65%, Transmital doppler flow pattern is Grade I abnormal relaxation pattern. Right ventricular systolic function is normal. Aortic valve bioprosthetic. Mobile density seen with high velocities across Aortic valve highly suspicious for aortic valve endocarditis. recommended for CASPER * Cardiology (Dr. Leyva)-->no CASPER; patient has endocarditis * Blood cultures (12/12/16): Strep mitis X2 * Blood culture (12/14/16): No growth * Blood culture (12/16/16): No growth * Urine culture (12/12/16): no growth * Zosyn 3.375 gm Q6H (active since 12/12/16)-->patient to complete 6 weeks of IV Abx on January * Tylenol 650 mg PO Q6 prn fever. Monitor liver function tests in light of hepatitis hx 2) Endocarditis * Infectious Disease (Dr. Trevino) on board-->help appreciated * IV abx for 6 weeks * Cardiology (Dr. Leyva)-->no CASPER; patient has endocarditis * Echocardiogram (12/14/16): left ventricle systolic function is normal; EF: 60- 65%, Transmital doppler flow pattern is Grade I abnormal relaxation pattern. Right ventricular systolic function is normal. Aortic valve bioprosthetic. Mobile density seen with high velocities across Aortic valve highly suspicious for aortic valve endocarditis. recommended for CASPER * IV Abx: Zosyn 3.375 gm Q6H (active since 12/12/16) and Vancomycin discontinued * Blood cultures (12/12/16): Strep mitis X2 * Blood cultures (12/14/16): pending * Risk factors: +murmur, IV drug use (2 major in Daily's Criteria) * Chest Xray (12/16/16): CXR: Right-sided central venous catheter extends to the cavoatrial junction. Mild left basilar atelectasis/infiltrate and or small pleural effusion. Median sternotomy wires. Cardiomegaly. 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 Mild degenerative disc disease at L4-5 with a posterior disc bulge and superimposed right foraminal disc protrusion. Mild right neural foraminal stenosis. No central spinal canal stenosis. Note is made of splenomegaly, perisplenic and splenorenal arises in this patient with known hepatic cirrhosis. * Flexeril 5mg PO TID prn muscle spasm 6) Diarrhea * Resolved * Stool culture/O&P (12/12): negative for O&P, salmonella, shigella, and campylobacter * Stool negative for leukocytes and occult blood * Serum C. Diff antigen and toxin: negative 7) Constipation * Resolved * Obstructive series (12/28/16): moderate constipation * Had BM following obstructive series. * Start Colace 100mg PO bid 8) History of Seizures * Continue Keppra 500 mg PO BID * Continue Gabapentin 300 mg PO BID 9) History of Depression * Continue Zoloft 50 mg PO daily 9) History of Hepatitis B & C * Monitor LFTs. Currently WNL 10) Pancytopenia * Heme-Onc (Dr. 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 On old admission growth factors like Neupogen (Filgrastim) were recommended for low WBC. * Monitor H/H and platelets 11) Prophylactic Measure * Heparin and GI ppx held due thrombocytopenia * SCDs * Florastor 250mg PO bid Disposition: Patient complete 6 weeks of IV abx. End date: 01/23/17
[2017-01-01 07:27] LABS: BASO % 0.4 % (0.0-2.0); EOS # 0.1 K/uL (0.0-0.7); EOS % 1.5 % (0.0-4.0); HEMATOCRIT 29.8 % (35.0-51.0); LYMPH # 0.7 K/uL (1.0-4.3); LYMPH % 16.2 % (20.0-40.0); MEAN CELL VOLUME 77.8 fL (80.0-94.0); MEAN CORPUSCULAR HEMOGLOBIN 25.9 pg (27.0-31.0); MEAN CORPUSCULAR HGB CONC 33.4 g/dL (33.0-37.0); MEAN PLATELET VOLUME 7.4 fL (7.2-11.7); MONO # 0.4 K/uL (0.0-0.8); MONO % 8.7 % (0.0-10.0); WHITE BLOOD COUNT 4.6 K/uL (4.8-10.8)
[2017-01-01 07:38] LABS: CHLORIDE 107 mmol/L (98-107); POTASSIUM 3.6 mmol/L (3.6-5.2); SODIUM 141 mmol/L (132-148)
[2017-01-01 07:40] LABS: ALB/GLOB RATIO 0.9 (1.0-2.1); ALKALINE PHOSPHATASE 68 U/L (38-126); AST/SGOT 25 U/L (17-59); BILIRUBIN,TOTAL 0.5 mg/dL (0.2-1.3); CARBON DIOXIDE 25 mmol/L (22-30); GFR AFRICAN-AMERICAN > 60; TOTAL PROTEIN 6.4 g/dL (6.3-8.3)
[2017-01-01 07:41] LABS: ALT/SGPT 36 U/L (21-72); BLOOD UREA NITROGEN 13 mg/dL (9-20); CALCIUM 8.2 mg/dl (8.6-10.4); GLUCOSE,RANDOM 85 mg/dL (75-110); PHOSPHOROUS 3.4 mg/dL (2.5-4.5)
[2017-01-01 07:42] LABS: MAGNESIUM 1.9 mg/dL (1.6-2.3)
[2017-01-01] MEDS: Saccharomyces Boulardi 250 mg Cap PO SCH ×2 (09:19→17:29)
[2017-01-01] MEDS: Aluminum Hydroxide/Magnesium Hydroxide Susp (30 mL) PO SCH (09:19)
--- NOTE | 2017-01-02 00:53 | CP.PCM.PN ---
<Roselia Camacho - Last Filed: 01/02/17 00:50> Subjective - Date & Time of Evaluation Date of Evaluation: 01/02/17 Time of Evaluation: 00:00 - Subjective Subjective: Medicine Progress Note: Patient was seen and examined at bedside. Patient states he still continues to have his chronic low back pain but he just received his medication so hopefully he states it will start to feel better. Patient denies chest pain, shortness of breath, nausea, vomiting, diarrhea or constipation. Objective - Vital Signs/Intake and Output Vital Signs (last 24 hours): Temp Pulse Resp BP Pulse Ox 99 F 94 H 20 106/66 94 L 01/01/17 15:27 01/01/17 15:27 01/01/17 15:27 01/01/17 17:32 01/01/17 15:27 - Medications Medications: Current Medications Al Hydrox/Mg Hydrox/Simethicone (Maalox 30 Ml) 30 ml PO DAILY [facility] Last Admin: 01/01/17 09:19 Dose: 30 ml Cyclobenzaprine HCl (Flexeril) 5 mg PO Q8H PRN PRN Reason: Muscle spasm Last Admin: 01/01/17 17:28 Dose: 5 mg Dicyclomine HCl (Bentyl) 20 mg PO Q8 PRN PRN Reason: ABDOMINAL PAIN Last Admin: 12/29/16 09:39 Dose: 20 mg Docusate Sodium (Colace) 100 mg PO BID [facility] Last Admin: 01/01/17 17:29 Dose: 100 mg Gabapentin (Neurontin) 300 mg PO BID [facility] Last Admin: 01/01/17 17:29 Dose: 300 mg Hydroxyzine HCl (Atarax) 50 mg PO Q6H PRN PRN Reason: Anxiety Last Admin: 12/27/16 22:44 Dose: 50 mg Piperacillin Sod/Tazobactam Sod (Zosyn 3.375 Gm Iv Premix) 3.375 gm in 50 mls @ 100 mls/hr IVPB Q6 [facility] Stop: 01/24/17 00:00 Last Admin: 01/02/17 00:00 Dose: 100 mls/hr Levetiracetam (Keppra) 500 mg PO BID [facility] Last Admin: 01/01/17 17:29 Dose: 500 mg Metoprolol Tartrate (Lopressor) 25 mg PO BID [facility] Last Admin: 01/01/17 17:32 Dose: 25 mg Ondansetron HCl (Zofran Tab) 4 mg PO Q8 PRN PRN Reason: Nausea/Vomiting Last Admin: 12/27/16 08:21 Dose: 4 mg Saccharomyces Boulardii (Florastor) 250 mg PO BID [facility] Last Admin: 01/01/17 17:29 Dose: 250 mg Sertraline HCl (Zoloft) 50 mg PO DAILY [facility] Last Admin: 01/01/17 09:20 Dose: 50 mg Trazodone HCl (Desyrel) 100 mg PO HS [facility] Last Admin: 01/01/17 22:33 Dose: 100 mg - Labs Labs: 01/01/17 07:09 01/01/17 07:09 PT 14.2 SECONDS (9.7-12.2) H 12/12/16 07:08 INR 1.3 12/12/16 07:08 APTT 32 SECONDS (21-34) 12/12/16 07:08 - Constitutional Appears: No Acute Distress, Cachectic - Head Exam Head Exam: ATRAUMATIC, NORMAL INSPECTION, NORMOCEPHALIC - Eye Exam Eye Exam: EOMI, Normal appearance, PERRL Pupil Exam: NORMAL ACCOMODATION - ENT Exam ENT Exam: Mucous Membranes Moist - Respiratory Exam Respiratory Exam: Clear to Ausculation Bilateral, NORMAL BREATHING PATTERN. absent: Rales, Rhonchi, Wheezes, Stridor - Cardiovascular Exam Cardiovascular Exam: REGULAR RHYTHM, +S1, +S2, Murmur - GI/Abdominal Exam GI & Abdominal Exam: Soft, Normal Bowel Sounds. absent: Tenderness - Extremities Exam Extremities Exam: Normal Inspection. absent: Pedal Edema, Tenderness - Neurological Exam Neurological Exam: Alert, Awake, Oriented x3 - Psychiatric Exam Psychiatric exam: Normal Affect, Normal Mood - Skin Skin Exam: Normal Color, Warm Assessment and Plan - Assessment and Plan (Free Text) Assessment: Bacteremia * CXR 12/12 - heterogenous infiltrate at inferior Right and Mid/inferior left lung zones vs atelectasis with likely small left pleural effusion and Right central venous line terminating at the right atrium; Repeat CXR 12/13 shows right IJ central venous line with tip in the SVC after adjustment and right lower lobe opacity with improvement * Echo 12/12: Mobile density seen with high velocities across AV highly suspicious for AV endocarditis, transmitral doppler flow pattern is grade 1 ( abnormal relaxation pattern), LV and RV systolic function normal, EF = 60-65% * Blood cultures 12/12 - Gram positive cocci in chains (Strep mitis in final read ) * Urine culture 12/12 - no growth * Cont Zosyn 3.375 gm Q6H for now and d/c Vancomycin 1 gm Q12H (12/14) - ID recs (Uriel) * 12/13 Vanc trough: 6.4 * Tylenol 650 mg PO Q6 prn fever. Due to history of hepatitis, consider switching to a different agent at some point. * Patient seen at [facility] in 09/[place]. Patient had TTE at that time which did NOT show vegetations on valve. Patient was also seen by psychiatry at that time as well as general surgery for abscess I&D. Will attempt to obtain patient's March [facility] medical records with information regarding valve surgery * Dr. Willson was contacted and agreed to see the patient on consult as long as Dr. Rushing (cardiology) accepts the transfer under his care * Still waiting for call back from Dr. Rushing (who originally cared for the patient at [facility]) as to whether he will accept the patient * If not accepted, patient will need at least 6 weeks of antibiotics here - Patient on day of Zosyn (end date Jan.23) * Blood work to be changed to Sat/Mon/Wed schedule Systolic ejection murmur * Likely 2/2 aortic valve replacement x2 * Echo 12/12 showed vegetations * Cardio consult on 12/14 (Dr. Leyva): does not recommend CASPER at this time * Positive blood culture for Strep mitis (12/12/16) * Repeat Blood Cultures 12/14/16 and 12/16/16 showed NO growth at 5 days * Cont zosyn and d/c vanc per Dr. Trevino as stated above; F/U about abx coverage for strep mitis * Hx of IV drug use/porcine valve * CT surg consult (Dr. Peralta) - says should be followed up with surgeon who did original AV replacement (Dr. Willson) * See above * F/U Medical records from [facility] - call original surgeon for AV valve replacement and see if he would like to accept the patient at [facility] * CXR: Right-sided central venous catheter extends to the cavoatrial junction. Mild left basilar atelectasis/infiltrate and or small pleural effusion. Median sternotomy wires. Cardiomegaly. Low back pain * lumbar spine XR - No abnormalities seen * flexeril 5mg TID * MRI lumbar spine - No acute fracture, spondylolysis or spondylolisthesis. No evidence of discitis/osteomyelitis. Mild degenerative disc disease at L4-5 with a posterior disc bulge and superimposed right foraminal disc protrusion. Mild right neural foraminal stenosis. No central spinal canal stenosis. Note is made of splenomegaly, perisplenic and splenorenal arises in this patient with known hepatic cirrhosis. Left shoulder pain/weakness * 2/2 Hx of fall * Left shoulder XR (12/13) - no acute dislocation or fracture, soft tissues unremarkable Diarrhea * Stool Culture/O&P (12/12) - negative for O&P, salmonella, shigella, and campylobacter * Stool negative for leukocytes and occult blood (12/12) * Serum C. diff antigen and toxin negative (12/12) * Stool C diff (Neg) and repeat leukocytes (Neg) * stool culture 12/16 negative * Patient is currently constipated and simethicone was ordered (12/27) - obstruction series ordered 12/28 was negative; patient had a BM overnight History of Seizures * Continue Keppra 500 mg PO BID * Continue Gabapentin 300 mg PO BID History of Depression * Continue Zoloft 50 mg PO daily History of Hepatitis B & C * Monitor LFTs. 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 * On old admission growth factors like Neupogen (Filgrastim) were recommended for low WBC * Heme/Onc consulted (Alyx) - recs against IV iron supplementation at this time until infection resolves, transfusion support prn, plans to review peripheral smear, BM evaluation if counts do not return to baseline * HIV 1&2 Ab screen negative * Stool negative for occult blood Prophylactic Measure * Heparin and GI ppx held due to platelets * SCDs for now * Patient has been getting up every 2 hours and performing 10 laps around the floor * Maalox 30 ml PO once a day PRN indigestion Disposition: Patient on day of Zosyn (end date Jan.23). Blood work on Sat/Mon/Wed schedule. <Chichi Dc V - Last Filed: 01/02/17 12:45> Objective - Vital Signs/Intake and Output Vital Signs (last 24 hours): Temp Pulse Resp BP Pulse Ox 98.1 F 105 H 20 114/72 95 01/02/17 08:00 01/02/17 08:19 01/02/17 08:00 01/02/17 11:54 01/02/17 08:00 Intake and Output: 01/02/17 01/02/17 06:59 18:59 Intake Total 780 Output Total 400 Balance 380 - Medications Medications: Current Medications Al Hydrox/Mg Hydrox/Simethicone (Maalox 30 Ml) 30 ml PO DAILY [facility] Last Admin: 01/02/17 11:33 Dose: 30 ml Cyclobenzaprine HCl (Flexeril) 5 mg PO Q8H PRN PRN Reason: Muscle spasm Last Admin: 01/02/17 08:07 Dose: 5 mg Dicyclomine HCl (Bentyl) 20 mg PO Q8 PRN PRN Reason: ABDOMINAL PAIN Last Admin: 12/29/16 09:39 Dose: 20 mg Docusate Sodium (Colace) 100 mg PO BID [facility] Last Admin: 01/02/17 11:33 Dose: 100 mg Gabapentin (Neurontin) 300 mg PO BID [facility] Last Admin: 01/02/17 11:33 Dose: 300 mg Hydroxyzine HCl (Atarax) 50 mg PO Q6H PRN PRN Reason: Anxiety Last Admin: 12/27/16 22:44 Dose: 50 mg Piperacillin Sod/Tazobactam Sod (Zosyn 3.375 Gm Iv Premix) 3.375 gm in 50 mls @ 100 mls/hr IVPB Q6 [facility] Stop: 01/24/17 00:00 Last Admin: 01/02/17 11:33 Dose: 100 mls/hr Levetiracetam (Keppra) 500 mg PO BID [facility] Last Admin: 01/02/17 11:33 Dose: 500 mg Metoprolol Tartrate (Lopressor) 25 mg PO BID [facility] Last Admin: 01/02/17 11:54 Dose: 25 mg Ondansetron HCl (Zofran Tab) 4 mg PO Q8 PRN PRN Reason: Nausea/Vomiting Last Admin: 12/27/16 08:21 Dose: 4 mg Saccharomyces Boulardii (Florastor) 250 mg PO BID [facility] Last Admin: 01/02/17 11:33 Dose: 250 mg Sertraline HCl (Zoloft) 50 mg PO DAILY [facility] Last Admin: 01/02/17 11:33 Dose: 50 mg Trazodone HCl (Desyrel) 100 mg PO HS [facility] Last Admin: 01/01/17 22:33 Dose: 100 mg - Labs Labs: 01/01/17 07:09 01/01/17 07:09 PT 14.2 SECONDS (9.7-12.2) H 12/12/16 07:08 INR 1.3 12/12/16 07:08 APTT 32 SECONDS (21-34) 12/12/16 07:08 Attending/Attestation - Attestation I have personally seen and examined this patient.: Yes I have fully participated in the care of the patient.: Yes I have reviewed all pertinent clinical information, including history, physical exam and plan: Yes Notes (Text): Patient seen, examined, and case discussed with day-time resident during rounds. Patient reporting mild low back pain but it is controlled. Patient is relaxed in bed. Patient advised to walk around to prevent DVT which he reports he does. Patient to continue IV abx for 6 weeks (on Day ; end date 01/23/17) Will space out patient's blood work to 3x/week instead of daily blood work. Assessment/Plan 1) Sepsis * Criteria: WBC<4; Temp: 104 F; positive blood cultures; Lactate: 1.2 on admission * Infectious Disease (Dr. Trevino) on board * Zosyn 3.375 gm Q6H (active since 12/12/16)-->patient to complete 6 weeks of IV Abx on January * Echocardiogram (12/14/16): left ventricle systolic function is normal; EF: 60- 65%, Transmital doppler flow pattern is Grade I abnormal relaxation pattern. Right ventricular systolic function is normal. Aortic valve bioprosthetic. Mobile density seen with high velocities across Aortic valve highly suspicious for aortic valve endocarditis. recommended for CASPER * Cardiology (Dr. Leyva)-->no CASPER; patient has endocarditis * Blood cultures (12/12/16): Strep mitis X2 * Blood culture (12/14/16): No growth * Blood culture (12/16/16): No growth * Urine culture (12/12/16): no growth * Zosyn 3.375 gm Q6H (active since 12/12/16)-->patient to complete 6 weeks of IV Abx on January * Tylenol 650 mg PO Q6 prn fever. Monitor liver function tests in light of hepatitis hx 2) Endocarditis * Infectious Disease (Dr. Trevino) on board-->help appreciated * IV abx for 6 weeks * Cardiology (Dr. Leyva)-->no CASPER; patient has endocarditis * Echocardiogram (12/14/16): left ventricle systolic function is normal; EF: 60- 65%, Transmital doppler flow pattern is Grade I abnormal relaxation pattern. Right ventricular systolic function is normal. Aortic valve bioprosthetic. Mobile density seen with high velocities across Aortic valve highly suspicious for aortic valve endocarditis. recommended for CASPER * IV Abx: Zosyn 3.375 gm Q6H (active since 12/12/16) and Vancomycin discontinued * Blood cultures (12/12/16): Strep mitis X2 * Blood cultures (12/14/16): pending * Risk factors: +murmur, IV drug use (2 major in Daily's Criteria) * Chest Xray (12/16/16): CXR: Right-sided central venous catheter extends to the cavoatrial junction. Mild left basilar atelectasis/infiltrate and or small pleural effusion. Median sternotomy wires. Cardiomegaly. 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 Mild degenerative disc disease at L4-5 with a posterior disc bulge and superimposed right foraminal disc protrusion. Mild right neural foraminal stenosis. No central spinal canal stenosis. Note is made of splenomegaly, perisplenic and splenorenal arises in this patient with known hepatic cirrhosis. * Flexeril 5mg PO TID prn muscle spasm 6) Diarrhea * Resolved * Stool culture/O&P (12/12): negative for O&P, salmonella, shigella, and campylobacter * Stool negative for leukocytes and occult blood * Serum C. Diff antigen and toxin: negative 7) Constipation * Resolved * Obstructive series (12/28/16): moderate constipation * Had BM following obstructive series. * Start Colace 100mg PO bid 8) History of Seizures * Continue Keppra 500 mg PO BID * Continue Gabapentin 300 mg PO BID 9) History of Depression * Continue Zoloft 50 mg PO daily 9) History of Hepatitis B & C * Monitor LFTs. Currently WNL 10) Pancytopenia * Heme-Onc (Dr. 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 On old admission growth factors like Neupogen (Filgrastim) were recommended for low WBC. * Monitor H/H and platelets 11) Prophylactic Measure * Heparin and GI ppx held due thrombocytopenia * SCDs * Florastor 250mg PO bid Disposition: Patient complete 6 weeks of IV abx. End date: 01/23/17
[2017-01-02] MEDS: Piperacill/Tazo 3.375gm in Dex 3.375 GM/50 ML BAG IVPB SCH ×5 (05:30→23:52)
[2017-01-02] MEDS: Aluminum Hydroxide/Magnesium Hydroxide Susp (30 mL) PO SCH (11:33)
[2017-01-02] MEDS: Saccharomyces Boulardi 250 mg Cap PO SCH ×2 (11:33→18:03)
[2017-01-03] MEDS: Piperacill/Tazo 3.375gm in Dex 3.375 GM/50 ML BAG IVPB SCH ×4 (05:34→23:55)
[2017-01-03 06:41] LABS: BASO % 0.4 % (0.0-2.0); EOS # 0.1 K/uL (0.0-0.7); EOS % 1.4 % (0.0-4.0); HEMATOCRIT 29.2 % (35.0-51.0); LYMPH # 0.6 K/uL (1.0-4.3); MEAN CELL VOLUME 77.4 fL (80.0-94.0); MEAN CORPUSCULAR HEMOGLOBIN 25.4 pg (27.0-31.0); MEAN CORPUSCULAR HGB CONC 32.8 g/dL (33.0-37.0); MEAN PLATELET VOLUME 7.5 fL (7.2-11.7); MONO # 0.3 K/uL (0.0-0.8); MONO % 7.3 % (0.0-10.0); NRBC % 0.2 % (0.0-2.0); RED CELL DISTRIBUTION WIDTH 17.8 % (11.5-14.5); WHITE BLOOD COUNT 4.2 K/uL (4.8-10.8)
[2017-01-03 07:31] LABS: ALB/GLOB RATIO 0.9 (1.0-2.1); ALKALINE PHOSPHATASE 65 U/L (38-126); ALT/SGPT 34 U/L (21-72); AST/SGOT 25 U/L (17-59); BILIRUBIN,TOTAL 0.3 mg/dL (0.2-1.3); BLOOD UREA NITROGEN 17 mg/dL (9-20); CALCIUM 8.8 mg/dl (8.6-10.4); CARBON DIOXIDE 25 mmol/L (22-30); CHLORIDE 104 mmol/L (98-107); GFR AFRICAN-AMERICAN > 60; GLUCOSE,RANDOM 77 mg/dL (75-110); MAGNESIUM 1.8 mg/dL (1.6-2.3); PHOSPHOROUS 3.8 mg/dL (2.5-4.5); POTASSIUM 3.7 mmol/L (3.6-5.2); SODIUM 142 mmol/L (132-148); TOTAL PROTEIN 6.2 g/dL (6.3-8.3)
[2017-01-03] MEDS: Aluminum Hydroxide/Magnesium Hydroxide Susp (30 mL) PO SCH (09:18)
[2017-01-03] MEDS: Saccharomyces Boulardi 250 mg Cap PO SCH ×2 (09:18→17:26)
--- NOTE | 2017-01-03 13:48 | CP.PCM.PN ---
<Eliana Stewart - Last Filed: 01/03/17 19:59> Subjective - Date & Time of Evaluation Date of Evaluation: 01/03/17 Time of Evaluation: 13:47 - Subjective Subjective: Patient seen and examined at bedside. He complains of back pain which he describes of throbbing and is localized to the right side of his lower back, however this is not new for him and is controlled with his flexeril. Patient is complaining of pain in the midsternum over his hardware from previous chest surgery.Patient says it is mostly over the area of the first 3 or 4 ribs. Pt denies F/C, SOB, AP/N/V/D/C. Objective - Vital Signs/Intake and Output Vital Signs (last 24 hours): Temp Pulse Resp BP Pulse Ox 97.9 F 80 18 116/81 97 01/03/17 08:30 01/03/17 12:29 01/03/17 08:30 01/03/17 09:18 01/03/17 08:30 Intake and Output: 01/03/17 01/03/17 06:59 18:59 Intake Total 780 Output Total 1700 Balance -920 - Medications Medications: Current Medications Al Hydrox/Mg Hydrox/Simethicone (Maalox 30 Ml) 30 ml PO DAILY [facility] Last Admin: 01/03/17 09:18 Dose: 30 ml Cyclobenzaprine HCl (Flexeril) 5 mg PO Q8H PRN PRN Reason: Muscle spasm Last Admin: 01/03/17 09:18 Dose: 5 mg Dicyclomine HCl (Bentyl) 20 mg PO Q8 PRN PRN Reason: ABDOMINAL PAIN Last Admin: 12/29/16 09:39 Dose: 20 mg Docusate Sodium (Colace) 100 mg PO BID [facility] Last Admin: 01/03/17 09:18 Dose: 100 mg Gabapentin (Neurontin) 300 mg PO BID [facility] Last Admin: 01/03/17 09:18 Dose: 300 mg Hydroxyzine HCl (Atarax) 50 mg PO Q6H PRN PRN Reason: Anxiety Last Admin: 12/27/16 22:44 Dose: 50 mg Piperacillin Sod/Tazobactam Sod (Zosyn 3.375 Gm Iv Premix) 3.375 gm in 50 mls @ 100 mls/hr IVPB Q6 [facility] Stop: 01/24/17 00:00 Last Admin: 01/03/17 12:15 Dose: 100 mls/hr Levetiracetam (Keppra) 500 mg PO BID [facility] Last Admin: 01/03/17 09:18 Dose: 500 mg Metoprolol Tartrate (Lopressor) 25 mg PO BID [facility] Last Admin: 01/03/17 09:18 Dose: 25 mg Ondansetron HCl (Zofran Tab) 4 mg PO Q8 PRN PRN Reason: Nausea/Vomiting Last Admin: 12/27/16 08:21 Dose: 4 mg Saccharomyces Boulardii (Florastor) 250 mg PO BID [facility] Last Admin: 01/03/17 09:18 Dose: 250 mg Sertraline HCl (Zoloft) 50 mg PO DAILY [facility] Last Admin: 01/03/17 09:18 Dose: 50 mg Trazodone HCl (Desyrel) 100 mg PO HS [facility] Last Admin: 01/02/17 22:30 Dose: 100 mg - Labs Labs: 01/03/17 06:29 01/03/17 06:29 PT 14.2 SECONDS (9.7-12.2) H 12/12/16 07:08 INR 1.3 12/12/16 07:08 APTT 32 SECONDS (21-34) 12/12/16 07:08 - Constitutional Appears: Non-toxic, No Acute Distress - Head Exam Head Exam: ATRAUMATIC, NORMAL INSPECTION, NORMOCEPHALIC - Eye Exam Eye Exam: EOMI - ENT Exam ENT Exam: Mucous Membranes Moist - Respiratory Exam Respiratory Exam: Chest Wall Tenderness (upper midsternal ), Clear to Ausculation Bilateral, NORMAL BREATHING PATTERN - Cardiovascular Exam Cardiovascular Exam: REGULAR RHYTHM, Murmur (holosystolic, harsh ). absent: Bradycardia, Tachycardia - GI/Abdominal Exam GI & Abdominal Exam: Soft, Normal Bowel Sounds. absent: Distended, Tenderness - Extremities Exam Extremities Exam: Normal Inspection. absent: Pedal Edema, Tenderness - Back Exam Back Exam: NORMAL INSPECTION - Neurological Exam Neurological Exam: Alert, Awake - Psychiatric Exam Psychiatric exam: Normal Affect, Normal Mood - Skin Skin Exam: Dry, Intact, Normal Color, Warm Assessment and Plan - Assessment and Plan (Free Text) Assessment: Bacteremia * CXR 12/12 - heterogenous infiltrate at inferior Right and Mid/inferior left lung zones vs atelectasis with likely small left pleural effusion and Right central venous line terminating at the right atrium; Repeat CXR 12/13 shows right IJ central venous line with tip in the SVC after adjustment and right lower lobe opacity with improvement * Echo 12/12: Mobile density seen with high velocities across AV highly suspicious for AV endocarditis, transmitral doppler flow pattern is grade 1 ( abnormal relaxation pattern), LV and RV systolic function normal, EF = 60-65% * Blood cultures 12/12 - Gram positive cocci in chains (Strep mitis in final read ) * Urine culture 12/12 - no growth * Cont Zosyn 3.375 gm Q6H for now and d/c Vancomycin 1 gm Q12H (12/14) - ID recs (Uriel) * 12/13 Vanc trough: 6.4 * Tylenol 650 mg PO Q6 prn fever. Due to history of hepatitis, consider switching to a different agent at some point. * Patient seen at [facility] in 09/2016. Patient had TTE at that time which did NOT show vegetations on valve. Patient was also seen by psychiatry at that time as well as general surgery for abscess I&D. Will attempt to obtain patient's March [facility] medical records with information regarding valve surgery * Dr. Willson was contacted and agreed to see the patient on consult as long as Dr. Rushing (cardiology) accepts the transfer under his care * Still waiting for call back from Dr. Rushing (who originally cared for the patient at [facility]) as to whether he will accept the patient * If not accepted, patient will need at least 6 weeks of antibiotics here - Patient on day of Zosyn (end date Jan.23) * Blood work to be changed to Sat/Mon/Wed schedule Systolic ejection murmur * Likely 2/2 aortic valve replacement x2 * Echo 12/12 showed vegetations * Cardio consult on 12/14 (Dr. Leyva): does not recommend CASPER at this time * Positive blood culture for Strep mitis (12/12/16) * Repeat Blood Cultures 12/14/16 and 12/16/16 showed NO growth at 5 days * Cont zosyn and d/c vanc per Dr. Trevino as stated above; F/U about abx coverage for strep mitis * Hx of IV drug use/porcine valve * CT surg consult (Dr. Peralta) - says should be followed up with surgeon who did original AV replacement (Dr. Willson) * See above * F/U Medical records from [facility] - call original surgeon for AV valve replacement and see if he would like to accept the patient at [facility] * CXR: Right-sided central venous catheter extends to the cavoatrial junction. Mild left basilar atelectasis/infiltrate and or small pleural effusion. Median sternotomy wires. Cardiomegaly. Low back pain * lumbar spine XR - No abnormalities seen * flexeril 5mg TID * MRI lumbar spine - No acute fracture, spondylolysis or spondylolisthesis. No evidence of discitis/osteomyelitis. Mild degenerative disc disease at L4-5 with a posterior disc bulge and superimposed right foraminal disc protrusion. Mild right neural foraminal stenosis. No central spinal canal stenosis. Note is made of splenomegaly, perisplenic and splenorenal arises in this patient with known hepatic cirrhosis. Left shoulder pain/weakness * 2/2 Hx of fall * Left shoulder XR (12/13) - no acute dislocation or fracture, soft tissues unremarkable Diarrhea * Stool Culture/O&P (12/12) - negative for O&P, salmonella, shigella, and campylobacter * Stool negative for leukocytes and occult blood (12/12) * Serum C. diff antigen and toxin negative (12/12) * Stool C diff (Neg) and repeat leukocytes (Neg) * stool culture 12/16 negative * Patient is currently constipated and simethicone was ordered (12/27) - obstruction series ordered 12/28 was negative; patient had a BM overnight History of Seizures * Continue Keppra 500 mg PO BID * Continue Gabapentin 300 mg PO BID History of Depression * Continue Zoloft 50 mg PO daily History of Hepatitis B & C * Monitor LFTs. 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 * On old admission growth factors like Neupogen (Filgrastim) were recommended for low WBC * Heme/Onc consulted (Alyx) - recs against IV iron supplementation at this time until infection resolves, transfusion support prn, plans to review peripheral smear, BM evaluation if counts do not return to baseline * HIV 1&2 Ab screen negative * Stool negative for occult blood Prophylactic Measure * Heparin and GI ppx held due to platelets * SCDs for now * Patient has been getting up every 2 hours and performing 10 laps around the floor * Maalox 30 ml PO once a day PRN indigestion Disposition: Patient on day of Zosyn (end date Jan.23). Blood work on Sat/Mon/Wed schedule. <Chichi Dc V - Last Filed: 01/04/17 10:18> Objective - Vital Signs/Intake and Output Vital Signs (last 24 hours): Temp Pulse Resp BP Pulse Ox 97.9 F 101 H 20 95/72 L 96 01/04/17 08:08 01/04/17 08:37 01/04/17 08:08 01/04/17 09:48 01/04/17 08:08 Intake and Output: 01/04/17 01/04/17 06:59 18:59 Intake Total 690 Output Total 1175 Balance -485 - Medications Medications: Current Medications Al Hydrox/Mg Hydrox/Simethicone (Maalox 30 Ml) 30 ml PO DAILY [facility] Last Admin: 01/04/17 09:46 Dose: 30 ml Cyclobenzaprine HCl (Flexeril) 5 mg PO Q8H PRN PRN Reason: Muscle spasm Last Admin: 01/04/17 09:44 Dose: 5 mg Dicyclomine HCl (Bentyl) 20 mg PO Q8 PRN PRN Reason: ABDOMINAL PAIN Last Admin: 12/29/16 09:39 Dose: 20 mg Docusate Sodium (Colace) 100 mg PO BID [facility] Last Admin: 01/04/17 09:46 Dose: 100 mg Gabapentin (Neurontin) 300 mg PO BID [facility] Last Admin: 01/04/17 09:46 Dose: 300 mg Hydroxyzine HCl (Atarax) 50 mg PO Q6H PRN PRN Reason: Anxiety Last Admin: 01/04/17 09:44 Dose: 50 mg Piperacillin Sod/Tazobactam Sod (Zosyn 3.375 Gm Iv Premix) 3.375 gm in 50 mls @ 100 mls/hr IVPB Q6 [facility] Stop: 01/24/17 00:00 Last Admin: 01/04/17 06:19 Dose: 100 mls/hr Levetiracetam (Keppra) 500 mg PO BID [facility] Last Admin: 01/04/17 09:45 Dose: 500 mg Metoprolol Tartrate (Lopressor) 25 mg PO BID [facility] Last Admin: 01/04/17 09:48 Dose: Not Given Ondansetron HCl (Zofran Tab) 4 mg PO Q8 PRN PRN Reason: Nausea/Vomiting Last Admin: 12/27/16 08:21 Dose: 4 mg Saccharomyces Boulardii (Florastor) 250 mg PO BID [facility] Last Admin: 01/04/17 09:46 Dose: 250 mg Sertraline HCl (Zoloft) 50 mg PO DAILY [facility] Last Admin: 01/04/17 09:46 Dose: 50 mg Trazodone HCl (Desyrel) 100 mg PO HS [facility] Last Admin: 01/03/17 21:27 Dose: 100 mg - Labs Labs: 01/03/17 06:29 01/03/17 06:29 PT 14.2 SECONDS (9.7-12.2) H 12/12/16 07:08 INR 1.3 12/12/16 07:08 APTT 32 SECONDS (21-34) 12/12/16 07:08 Attending/Attestation - Attestation I have personally seen and examined this patient.: Yes I have fully participated in the care of the patient.: Yes I have reviewed all pertinent clinical information, including history, physical exam and plan: Yes Notes (Text): This is late computer entry for 01/03/17 Patient seen, examined, and case discussed with day-time resident during rounds. Patient reporting mild low back pain but it is controlled. Patient is relaxed, slumped in bed. Patient advised to walk around to prevent DVT which he reports he does but I personally see him relaxed in bed. Resident will attempt to cardiology again regarding if they accept for transfer to [facility] for thoracic surgery to further evaluate. Patient to continue IV abx for 6 weeks (on Day ; end date 01/23/17) Will space out patient's blood work to 3x/week instead of daily blood work. Assessment/Plan 1) Sepsis * Criteria: WBC<4; Temp: 104 F; positive blood cultures; Lactate: 1.2 on admission * Infectious Disease (Dr. Trevino) on board * Zosyn 3.375 gm Q6H (active since 12/12/16)-->patient to complete 6 weeks of IV Abx on January * Echocardiogram (12/14/16): left ventricle systolic function is normal; EF: 60- 65%, Transmital doppler flow pattern is Grade I abnormal relaxation pattern. Right ventricular systolic function is normal. Aortic valve bioprosthetic. Mobile density seen with high velocities across Aortic valve highly suspicious for aortic valve endocarditis. recommended for CASPER * Cardiology (Dr. Leyva)-->no CASPER; patient has endocarditis * Blood cultures (12/12/16): Strep mitis X2 * Blood culture (12/14/16): No growth * Blood culture (12/16/16): No growth * Urine culture (12/12/16): no growth * Zosyn 3.375 gm Q6H (active since 12/12/16)-->patient to complete 6 weeks of IV Abx on January * Tylenol 650 mg PO Q6 prn fever. Monitor liver function tests in light of hepatitis hx 2) Endocarditis * Infectious Disease (Dr. Trevino) on board-->help appreciated * IV abx for 6 weeks * Cardiology (Dr. Leyva)-->no CASPER; patient has endocarditis * Echocardiogram (12/14/16): left ventricle systolic function is normal; EF: 60- 65%, Transmital doppler flow pattern is Grade I abnormal relaxation pattern. Right ventricular systolic function is normal. Aortic valve bioprosthetic. Mobile density seen with high velocities across Aortic valve highly suspicious for aortic valve endocarditis. recommended for CASPER * IV Abx: Zosyn 3.375 gm Q6H (active since 12/12/16) and Vancomycin discontinued * Blood cultures (12/12/16): Strep mitis X2 * Blood cultures (12/14/16): pending * Risk factors: +murmur, IV drug use (2 major in Daily's Criteria) * Chest Xray (12/16/16): CXR: Right-sided central venous catheter extends to the cavoatrial junction. Mild left basilar atelectasis/infiltrate and or small pleural effusion. Median sternotomy wires. Cardiomegaly. 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 Mild degenerative disc disease at L4-5 with a posterior disc bulge and superimposed right foraminal disc protrusion. Mild right neural foraminal stenosis. No central spinal canal stenosis. Note is made of splenomegaly, perisplenic and splenorenal arises in this patient with known hepatic cirrhosis. * Flexeril 5mg PO TID prn muscle spasm 6) Diarrhea * Resolved * Stool culture/O&P (12/12): negative for O&P, salmonella, shigella, and campylobacter * Stool negative for leukocytes and occult blood * Serum C. Diff antigen and toxin: negative 7) Constipation * Resolved * Obstructive series (12/28/16): moderate constipation * Had BM following obstructive series. * Start Colace 100mg PO bid 8) History of Seizures * Continue Keppra 500 mg PO BID * Continue Gabapentin 300 mg PO BID 9) History of Depression * Continue Zoloft 50 mg PO daily 9) History of Hepatitis B & C * Monitor LFTs. Currently WNL 10) Pancytopenia * Heme-Onc (Dr. 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 On old admission growth factors like Neupogen (Filgrastim) were recommended for low WBC. * Monitor H/H and platelets 11) Prophylactic Measure * Heparin and GI ppx held due thrombocytopenia * SCDs * Florastor 250mg PO bid Disposition: Patient complete 6 weeks of IV abx. End date: 01/23/17
[2017-01-04] MEDS: Piperacill/Tazo 3.375gm in Dex 3.375 GM/50 ML BAG IVPB SCH ×4 (06:19→23:46)
[2017-01-04] MEDS: Saccharomyces Boulardi 250 mg Cap PO SCH ×2 (09:46→17:50)
[2017-01-04] MEDS: Aluminum Hydroxide/Magnesium Hydroxide Susp (30 mL) PO SCH (09:46)
--- NOTE | 2017-01-04 11:38 | CP.PCM.PN ---
<Eliana Stewart - Last Filed: 01/04/17 19:02> Subjective - Date & Time of Evaluation Date of Evaluation: 01/04/17 Time of Evaluation: 11:34 - Subjective Subjective: Patient seen and examined at bedside. Patient still having back pain which is controlled with flexeril. Patient is complaining of pain in the midsternum over his hardware from previous chest surgery.Patient says it is mostly over the area of the first 3 or 4 ribs. Patient's central venous line not working per nursing. Pt denies F/C, SOB, AP/N/V/D/C. Objective - Vital Signs/Intake and Output Vital Signs (last 24 hours): Temp Pulse Resp BP Pulse Ox 97.9 F 101 H 20 95/72 L 96 01/04/17 08:08 01/04/17 08:37 01/04/17 08:08 01/04/17 09:48 01/04/17 08:08 Intake and Output: 01/04/17 01/04/17 06:59 18:59 Intake Total 690 Output Total 1175 Balance -485 - Medications Medications: Current Medications Al Hydrox/Mg Hydrox/Simethicone (Maalox 30 Ml) 30 ml PO DAILY [facility] Last Admin: 01/04/17 09:46 Dose: 30 ml Cyclobenzaprine HCl (Flexeril) 5 mg PO Q8H PRN PRN Reason: Muscle spasm Last Admin: 01/04/17 09:44 Dose: 5 mg Dicyclomine HCl (Bentyl) 20 mg PO Q8 PRN PRN Reason: ABDOMINAL PAIN Last Admin: 12/29/16 09:39 Dose: 20 mg Docusate Sodium (Colace) 100 mg PO BID [facility] Last Admin: 01/04/17 09:46 Dose: 100 mg Gabapentin (Neurontin) 300 mg PO BID [facility] Last Admin: 01/04/17 09:46 Dose: 300 mg Hydroxyzine HCl (Atarax) 50 mg PO Q6H PRN PRN Reason: Anxiety Last Admin: 01/04/17 09:44 Dose: 50 mg Piperacillin Sod/Tazobactam Sod (Zosyn 3.375 Gm Iv Premix) 3.375 gm in 50 mls @ 100 mls/hr IVPB Q6 [facility] Stop: 01/24/17 00:00 Last Admin: 01/04/17 06:19 Dose: 100 mls/hr Levetiracetam (Keppra) 500 mg PO BID [facility] Last Admin: 01/04/17 09:45 Dose: 500 mg Metoprolol Tartrate (Lopressor) 25 mg PO BID [facility] Last Admin: 01/04/17 09:48 Dose: Not Given Ondansetron HCl (Zofran Tab) 4 mg PO Q8 PRN PRN Reason: Nausea/Vomiting Last Admin: 12/27/16 08:21 Dose: 4 mg Saccharomyces Boulardii (Florastor) 250 mg PO BID [facility] Last Admin: 01/04/17 09:46 Dose: 250 mg Sertraline HCl (Zoloft) 50 mg PO DAILY [facility] Last Admin: 01/04/17 09:46 Dose: 50 mg Trazodone HCl (Desyrel) 100 mg PO HS [facility] Last Admin: 01/03/17 21:27 Dose: 100 mg - Labs Labs: 01/03/17 06:29 01/03/17 06:29 PT 14.2 SECONDS (9.7-12.2) H 12/12/16 07:08 INR 1.3 12/12/16 07:08 APTT 32 SECONDS (21-34) 12/12/16 07:08 - Constitutional Appears: Non-toxic, No Acute Distress - Head Exam Head Exam: NORMAL INSPECTION - Eye Exam Eye Exam: EOMI - ENT Exam ENT Exam: Mucous Membranes Moist - Neck Exam Additional comments: Central line almost pulled completely out. - Respiratory Exam Respiratory Exam: Clear to Ausculation Bilateral, NORMAL BREATHING PATTERN - Cardiovascular Exam Cardiovascular Exam: Tachycardia, REGULAR RHYTHM, +S1, +S2, Murmur ( holosystolic ). absent: Bradycardia - GI/Abdominal Exam GI & Abdominal Exam: Soft, Normal Bowel Sounds. absent: Distended, Tenderness - Extremities Exam Extremities Exam: Normal Inspection. absent: Pedal Edema, Tenderness - Neurological Exam Neurological Exam: Alert, Awake - Psychiatric Exam Psychiatric exam: Normal Affect, Normal Mood - Skin Skin Exam: Dry, Intact, Normal Color, Warm Assessment and Plan - Assessment and Plan (Free Text) Assessment: Bacteremia * CXR 12/12 - heterogenous infiltrate at inferior Right and Mid/inferior left lung zones vs atelectasis with likely small left pleural effusion and Right central venous line terminating at the right atrium; Repeat CXR 12/13 shows right IJ central venous line with tip in the SVC after adjustment and right lower lobe opacity with improvement * Echo 12/12: Mobile density seen with high velocities across AV highly suspicious for AV endocarditis, transmitral doppler flow pattern is grade 1 ( abnormal relaxation pattern), LV and RV systolic function normal, EF = 60-65% * Blood cultures 12/12 - Gram positive cocci in chains (Strep mitis in final read ) * Urine culture 12/12 - no growth * Cont Zosyn 3.375 gm Q6H for now and d/c Vancomycin 1 gm Q12H (12/14) - ID recs (Uriel) * 12/13 Vanc trough: 6.4 * Tylenol 650 mg PO Q6 prn fever. Due to history of hepatitis, consider switching to a different agent at some point. * Patient seen at [facility] in 09/2016. Patient had TTE at that time which did NOT show vegetations on valve. Patient was also seen by psychiatry at that time as well as general surgery for abscess I&D. Will attempt to obtain patient's March [facility] medical records with information regarding valve surgery * Dr. Willson was contacted and agreed to see the patient on consult as long as Dr. Rushing (cardiology) accepts the transfer under his care * Still waiting for call back from Dr. Rushing (who originally cared for the patient at [facility]) as to whether he will accept the patient * If not accepted, patient will need at least 6 weeks of antibiotics here - Patient on day of Zosyn (end date Jan.23) * Blood work to be changed to Sat/Mon/Wed schedule Systolic ejection murmur * Likely 2/2 aortic valve replacement x2 * Echo 12/12 showed vegetations * Cardio consult on 12/14 (Dr. Leyva): does not recommend CASPER at this time * Positive blood culture for Strep mitis (12/12/16) * Repeat Blood Cultures 12/14/16 and 12/16/16 showed NO growth at 5 days * Cont zosyn and d/c vanc per Dr. Trevino as stated above; F/U about abx coverage for strep mitis * Central Line removed and replaced this afternoon in the left femoral vein () * Hx of IV drug use/porcine valve * CT surg consult (Dr. Peralta) - says should be followed up with surgeon who did original AV replacement (Dr. Willson) * See above * F/U Medical records from [facility] - call original surgeon for AV valve replacement and see if he would like to accept the patient at [facility] * CXR: Right-sided central venous catheter extends to the cavoatrial junction. Mild left basilar atelectasis/infiltrate and or small pleural effusion. Median sternotomy wires. Cardiomegaly. Low back pain * lumbar spine XR - No abnormalities seen * flexeril 5mg TID * MRI lumbar spine - No acute fracture, spondylolysis or spondylolisthesis. No evidence of discitis/osteomyelitis. Mild degenerative disc disease at L4-5 with a posterior disc bulge and superimposed right foraminal disc protrusion. Mild right neural foraminal stenosis. No central spinal canal stenosis. Note is made of splenomegaly, perisplenic and splenorenal arises in this patient with known hepatic cirrhosis. Left shoulder pain/weakness * 2/2 Hx of fall * Left shoulder XR (12/13) - no acute dislocation or fracture, soft tissues unremarkable Diarrhea * Stool Culture/O&P (12/12) - negative for O&P, salmonella, shigella, and campylobacter * Stool negative for leukocytes and occult blood (12/12) * Serum C. diff antigen and toxin negative (12/12) * Stool C diff (Neg) and repeat leukocytes (Neg) * stool culture 12/16 negative * Patient is currently constipated and simethicone was ordered (12/27) - obstruction series ordered 12/28 was negative; patient had a BM overnight History of Seizures * Continue Keppra 500 mg PO BID * Continue Gabapentin 300 mg PO BID History of Depression * Continue Zoloft 50 mg PO daily History of Hepatitis B & C * Monitor LFTs. 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 * On old admission growth factors like Neupogen (Filgrastim) were recommended for low WBC * Heme/Onc consulted (Alyx) - recs against IV iron supplementation at this time until infection resolves, transfusion support prn, plans to review peripheral smear, BM evaluation if counts do not return to baseline * HIV 1&2 Ab screen negative * Stool negative for occult blood Prophylactic Measure * Heparin and GI ppx held due to platelets * SCDs for now * Patient has been getting up every 2 hours and performing 10 laps around the floor * Maalox 30 ml PO once a day PRN indigestion Disposition: Patient on day of Zosyn (end date Jan.23). Blood work on Sat/Mon/Wed schedule. <Dane Machado - Last Filed: 01/04/17 19:14> Objective - Vital Signs/Intake and Output Vital Signs (last 24 hours): Temp Pulse Resp BP Pulse Ox 98.7 F 103 H 20 124/76 97 01/04/17 15:17 01/04/17 15:17 01/04/17 15:17 01/04/17 15:17 01/04/17 15:17 Intake and Output: 01/04/17 01/05/17 18:59 06:59 Intake Total 600 Output Total 150 Balance 450 - Medications Medications: Current Medications Al Hydrox/Mg Hydrox/Simethicone (Maalox 30 Ml) 30 ml PO DAILY [facility] Last Admin: 01/04/17 09:46 Dose: 30 ml Cyclobenzaprine HCl (Flexeril) 5 mg PO Q8H PRN PRN Reason: Muscle spasm Last Admin: 01/04/17 17:54 Dose: 5 mg Dicyclomine HCl (Bentyl) 20 mg PO Q8 PRN PRN Reason: ABDOMINAL PAIN Last Admin: 12/29/16 09:39 Dose: 20 mg Docusate Sodium (Colace) 100 mg PO BID [facility] Last Admin: 01/04/17 17:49 Dose: 100 mg Gabapentin (Neurontin) 300 mg PO BID [facility] Last Admin: 01/04/17 17:54 Dose: 300 mg Hydroxyzine HCl (Atarax) 50 mg PO Q6H PRN PRN Reason: Anxiety Last Admin: 01/04/17 09:44 Dose: 50 mg Piperacillin Sod/Tazobactam Sod (Zosyn 3.375 Gm Iv Premix) 3.375 gm in 50 mls @ 100 mls/hr IVPB Q6 [facility] Stop: 01/24/17 00:00 Last Admin: 01/04/17 17:51 Dose: 100 mls/hr Levetiracetam (Keppra) 500 mg PO BID [facility] Last Admin: 01/04/17 17:50 Dose: 500 mg Metoprolol Tartrate (Lopressor) 25 mg PO BID [facility] Last Admin: 01/04/17 09:48 Dose: Not Given Ondansetron HCl (Zofran Tab) 4 mg PO Q8 PRN PRN Reason: Nausea/Vomiting Last Admin: 12/27/16 08:21 Dose: 4 mg Saccharomyces Boulardii (Florastor) 250 mg PO BID [facility] Last Admin: 01/04/17 17:50 Dose: 250 mg Sertraline HCl (Zoloft) 50 mg PO DAILY [facility] Last Admin: 01/04/17 09:46 Dose: 50 mg Trazodone HCl (Desyrel) 100 mg PO HS [facility] Last Admin: 01/03/17 21:27 Dose: 100 mg - Labs Labs: 01/03/17 06:29 01/03/17 06:29 PT 14.2 SECONDS (9.7-12.2) H 12/12/16 07:08 INR 1.3 12/12/16 07:08 APTT 32 SECONDS (21-34) 12/12/16 07:08 Attending/Attestation - Attestation I have personally seen and examined this patient.: Yes I have fully participated in the care of the patient.: Yes I have reviewed all pertinent clinical information, including history, physical exam and plan: Yes Notes (Text): 01/04/17 19:13 Patient was seen and examined at 10:15 AM 01/04/17 Exam, Assessment and Plan were thoroughly gone over with the resident. Dane Machado D.O.
--- NOTE | 2017-01-04 21:22 | PCM.PROC ---
Procedures Attestation:: I certify that I have explained the specified Operation(s) or Procedure(s), risks, benefits and reasonable alternatives to the Patient and/or other person responsible. The opportunity was given to ask questions and all questions answered - Central Line Placement Left Femoral Triple Lumen Catheter Aseptic technique was employed throughout the procedure: Hand Hygiene done prior to procedure, Full sterile barriers (mask, hair cover, sterile gown, sterile gloves), Full body sterile drape, Chloraprep Antiseptic: 2 minute prep for Femoral CVP Time Out Performed: Yes Pt. Placed on Pulse Ox Monitor: No Central Line Prep: Chlorhexidine-Alcohol Combination Local Anesthesia Used: Lidocaine 1% Ultrasound Used for Placement: Yes Central Line Lumen Inserted: triple Post Procedure: Sutured in Place, Good Blood Return, All Ports Aspirated, Flushed, Capped, Sterile Dressing Applied Secured by: Suture Post procedure dressing: Chlorhexidine disc (Biopatch) Post Procedure X-Ray: No Patient Tolerated Procedure: Well, No Complications Immediate Complications: None
[2017-01-05] MEDS: Piperacill/Tazo 3.375gm in Dex 3.375 GM/50 ML BAG IVPB SCH ×3 (05:31→18:00)
--- NOTE | 2017-01-05 07:24 | CP.PCM.PN ---
<Eliana Stewart - Last Filed: 01/05/17 19:02> Subjective - Date & Time of Evaluation Date of Evaluation: 01/05/17 Time of Evaluation: 07:24 - Subjective Subjective: Patient seen and examined at bedside. Patient resting comfortably in bed. Patient says he has no pain in his groin where the central line was inserted yesterday. However patient is complaining of blood in his stool that he noticed this morning. Patient says the toilet water was pink tinged and he noticed bright red streaks in his stool and some on the toilet paper. Patient says he had a normal BM without diarrhea or constipation, and no change in the caliber of his stool. Patient denied pain with the BM or with wiping. Patient says he has had this before a long time ago when he was [facility]. Patient says he was constipated at that time and straining but he did not do anything about it and the bleeding stopped on its own. Patient does not think he has ever had a hemorrhoid. Patient has never had a colonoscopy. He denies fever, chills, CP, SOB, AP, N, V. Objective - Vital Signs/Intake and Output Vital Signs (last 24 hours): Temp Pulse Resp BP Pulse Ox 98.9 F 96 H 20 145/82 96 01/04/17 23:38 01/05/17 00:00 01/04/17 23:38 01/04/17 23:38 01/04/17 23:38 Intake and Output: 01/05/17 01/05/17 06:59 18:59 Intake Total 580 Output Total 1100 Balance -520 - Medications Medications: Current Medications Al Hydrox/Mg Hydrox/Simethicone (Maalox 30 Ml) 30 ml PO DAILY [facility] Last Admin: 01/04/17 09:46 Dose: 30 ml Cyclobenzaprine HCl (Flexeril) 5 mg PO Q8H PRN PRN Reason: Muscle spasm Last Admin: 01/05/17 02:57 Dose: 5 mg Dicyclomine HCl (Bentyl) 20 mg PO Q8 PRN PRN Reason: ABDOMINAL PAIN Last Admin: 12/29/16 09:39 Dose: 20 mg Docusate Sodium (Colace) 100 mg PO BID [facility] Last Admin: 01/04/17 17:49 Dose: 100 mg Gabapentin (Neurontin) 300 mg PO BID [facility] Last Admin: 01/04/17 17:54 Dose: 300 mg Hydroxyzine HCl (Atarax) 50 mg PO Q6H PRN PRN Reason: Anxiety Last Admin: 01/04/17 09:44 Dose: 50 mg Piperacillin Sod/Tazobactam Sod (Zosyn 3.375 Gm Iv Premix) 3.375 gm in 50 mls @ 100 mls/hr IVPB Q6 [facility] Stop: 01/24/17 00:00 Last Admin: 01/05/17 05:31 Dose: 100 mls/hr Levetiracetam (Keppra) 500 mg PO BID [facility] Last Admin: 01/04/17 17:50 Dose: 500 mg Metoprolol Tartrate (Lopressor) 25 mg PO BID [facility] Last Admin: 01/04/17 21:51 Dose: 25 mg Ondansetron HCl (Zofran Tab) 4 mg PO Q8 PRN PRN Reason: Nausea/Vomiting Last Admin: 12/27/16 08:21 Dose: 4 mg Saccharomyces Boulardii (Florastor) 250 mg PO BID [facility] Last Admin: 01/04/17 17:50 Dose: 250 mg Sertraline HCl (Zoloft) 50 mg PO DAILY [facility] Last Admin: 01/04/17 09:46 Dose: 50 mg Trazodone HCl (Desyrel) 100 mg PO HS [facility] Last Admin: 01/05/17 02:57 Dose: 100 mg - Labs Labs: 01/03/17 06:29 01/03/17 06:29 PT 14.2 SECONDS (9.7-12.2) H 12/12/16 07:08 INR 1.3 12/12/16 07:08 APTT 32 SECONDS (21-34) 12/12/16 07:08 - Constitutional Appears: Non-toxic, No Acute Distress - Head Exam Head Exam: NORMAL INSPECTION - Eye Exam Eye Exam: EOMI - ENT Exam ENT Exam: Mucous Membranes Moist - Respiratory Exam Respiratory Exam: Clear to Ausculation Bilateral, NORMAL BREATHING PATTERN. absent: Rales, Rhonchi, Wheezes - Cardiovascular Exam Cardiovascular Exam: REGULAR RHYTHM, Murmur (holosystolic ). absent: Bradycardia - GI/Abdominal Exam GI & Abdominal Exam: Soft, Normal Bowel Sounds. absent: Distended, Guarding, Tenderness, Mass - Extremities Exam Extremities Exam: Normal Inspection. absent: Pedal Edema, Tenderness Additional comments: triple lumen central line in left groin without bleeding, swelling, or erythema - Neurological Exam Neurological Exam: Alert, Awake - Psychiatric Exam Psychiatric exam: Normal Affect, Normal Mood - Skin Skin Exam: Dry, Intact, Normal Color, Warm Assessment and Plan - Assessment and Plan (Free Text) Assessment: Bacteremia * CXR 12/12 - heterogenous infiltrate at inferior Right and Mid/inferior left lung zones vs atelectasis with likely small left pleural effusion and Right central venous line terminating at the right atrium; Repeat CXR 12/13 shows right IJ central venous line with tip in the SVC after adjustment and right lower lobe opacity with improvement * Echo 12/12: Mobile density seen with high velocities across AV highly suspicious for AV endocarditis, transmitral doppler flow pattern is grade 1 ( abnormal relaxation pattern), LV and RV systolic function normal, EF = 60-65% * Blood cultures 12/12 - Gram positive cocci in chains (Strep mitis in final read ) * Urine culture 12/12 - no growth * Cont Zosyn 3.375 gm Q6H for now and d/c Vancomycin 1 gm Q12H (12/14) - ID recs (Mangia) * 12/13 Vanc trough: 6.4 * Tylenol 650 mg PO Q6 prn fever. Due to history of hepatitis, consider switching to a different agent at some point. * Patient seen at [facility] in 09/2016. Patient had TTE at that time which did NOT show vegetations on valve. Patient was also seen by psychiatry at that time as well as general surgery for abscess I&D. Will attempt to obtain patient's March [facility] medical records with information regarding valve surgery * Dr. Willson was contacted and agreed to see the patient on consult as long as Dr. Rushing (cardiology) accepts the transfer under his care * Dr. Rushing (who originally cared for the patient at [facility]) did not return any of our calls so the patient will stay here for the remainder of his antibiotic treatment. * If not accepted, patient will need at least 6 weeks of antibiotics here - Patient on Zosyn until Jan.23 * Blood work to be changed to Sat/Mon/Wed schedule Systolic ejection murmur * Likely 2/2 aortic valve replacement x2 * Echo 12/12 showed vegetations * Cardio consult on 12/14 (Dr. Leyva): does not recommend CASPER at this time * Positive blood culture for Strep mitis (12/12/16) * Repeat Blood Cultures 12/14/16 and 12/16/16 showed NO growth at 5 days * Cont zosyn and d/c vanc per Dr. Trevino as stated above; F/U about abx coverage for strep mitis * Central Line removed and replaced in the left femoral vein (01/04) * Hx of IV drug use/porcine valve * CT surg consult (Dr. Peralta) - says should be followed up with surgeon who did original AV replacement (Dr. Willson) * See above * F/U Medical records from [facility] - call original surgeon for AV valve replacement and see if he would like to accept the patient at [facility] * CXR: Right-sided central venous catheter extends to the cavoatrial junction. Mild left basilar atelectasis/infiltrate and or small pleural effusion. Median sternotomy wires. Cardiomegaly. Low back pain * lumbar spine XR - No abnormalities seen * flexeril 5mg TID * MRI lumbar spine - No acute fracture, spondylolysis or spondylolisthesis. No evidence of discitis/osteomyelitis. Mild degenerative disc disease at L4-5 with a posterior disc bulge and superimposed right foraminal disc protrusion. Mild right neural foraminal stenosis. No central spinal canal stenosis. Note is made of splenomegaly, perisplenic and splenorenal arises in this patient with known hepatic cirrhosis. Hematochezia * likely 2/2 hemorrhoid found on SMILEY * Colace TID * Patient will need out patient colonoscopy Left shoulder pain/weakness * 2/2 Hx of fall * Left shoulder XR (12/13) - no acute dislocation or fracture, soft tissues unremarkable Diarrhea * Stool Culture/O&P (12/12) - negative for O&P, salmonella, shigella, and campylobacter * Stool negative for leukocytes and occult blood (12/12) * Serum C. diff antigen and toxin negative (12/12) * Stool C diff (Neg) and repeat leukocytes (Neg) * stool culture 12/16 negative * Patient is currently constipated and simethicone was ordered (12/27) - obstruction series ordered 12/28 was negative; patient had a BM overnight History of Seizures * Continue Keppra 500 mg PO BID * Continue Gabapentin 300 mg PO BID History of Depression * Continue Zoloft 50 mg PO daily History of Hepatitis B & C * Monitor LFTs. 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 * On old admission growth factors like Neupogen (Filgrastim) were recommended for low WBC * Heme/Onc consulted (Alyx) - recs against IV iron supplementation at this time until infection resolves, transfusion support prn, plans to review peripheral smear, BM evaluation if counts do not return to baseline * HIV 1&2 Ab screen negative * Stool negative for occult blood Prophylactic Measure * Heparin and GI ppx held due to platelets * SCDs for now * Patient has been getting up every 2 hours and performing 10 laps around the floor * Maalox 30 ml PO once a day PRN indigestion Disposition: Patient on day of Zosyn (end date Jan.23). Blood work on Sat/Mon/Wed schedule. <Dane Machado - Last Filed: 01/05/17 20:11> Objective - Vital Signs/Intake and Output Vital Signs (last 24 hours): Temp Pulse Resp BP Pulse Ox 98.3 F 95 H 20 103/64 96 01/05/17 15:50 01/05/17 16:00 01/05/17 15:50 01/05/17 15:50 01/05/17 15:50 Intake and Output: 01/05/17 01/06/17 18:59 06:59 Intake Total 1150 Output Total 1300 Balance -150 - Medications Medications: Current Medications Al Hydrox/Mg Hydrox/Simethicone (Maalox 30 Ml) 30 ml PO DAILY [facility] Last Admin: 01/05/17 10:45 Dose: 30 ml Cyclobenzaprine HCl (Flexeril) 5 mg PO Q8H PRN PRN Reason: Muscle spasm Last Admin: 01/05/17 10:45 Dose: 5 mg Dicyclomine HCl (Bentyl) 20 mg PO Q8 PRN PRN Reason: ABDOMINAL PAIN Last Admin: 12/29/16 09:39 Dose: 20 mg Docusate Sodium (Colace) 100 mg PO TID [facility] Last Admin: 01/05/17 13:52 Dose: 100 mg Gabapentin (Neurontin) 300 mg PO BID [facility] Last Admin: 01/05/17 10:45 Dose: 300 mg Hydroxyzine HCl (Atarax) 50 mg PO Q6H PRN PRN Reason: Anxiety Last Admin: 01/05/17 10:45 Dose: 50 mg Piperacillin Sod/Tazobactam Sod (Zosyn 3.375 Gm Iv Premix) 3.375 gm in 50 mls @ 100 mls/hr IVPB Q6 [facility] Stop: 01/24/17 00:00 Last Admin: 01/05/17 11:00 Dose: 100 mls/hr Levetiracetam (Keppra) 500 mg PO BID [facility] Last Admin: 01/05/17 10:45 Dose: 500 mg Metoprolol Tartrate (Lopressor) 25 mg PO BID [facility] Last Admin: 01/05/17 10:45 Dose: 25 mg Ondansetron HCl (Zofran Tab) 4 mg PO Q8 PRN PRN Reason: Nausea/Vomiting Last Admin: 12/27/16 08:21 Dose: 4 mg Saccharomyces Boulardii (Florastor) 250 mg PO BID [facility] Last Admin: 01/05/17 10:45 Dose: 250 mg Sertraline HCl (Zoloft) 50 mg PO DAILY [facility] Last Admin: 01/05/17 10:45 Dose: 50 mg Trazodone HCl (Desyrel) 100 mg PO HS [facility] Last Admin: 01/05/17 02:57 Dose: 100 mg - Labs Labs: 01/05/17 11:16 01/05/17 11:16 PT 14.2 SECONDS (9.7-12.2) H 12/12/16 07:08 INR 1.3 12/12/16 07:08 APTT 32 SECONDS (21-34) 12/12/16 07:08 Attending/Attestation - Attestation I have personally seen and examined this patient.: Yes I have fully participated in the care of the patient.: Yes I have reviewed all pertinent clinical information, including history, physical exam and plan: Yes Notes (Text): 01/05/17 20:08 Patient was seen and examined at 1:30 PM 01/05/17 Exam, Assessment and Plan were thoroughly gone over with the resident. At the time of my of exam, patient stated that he had an episode of dark red blood in his stool after hard bowel movement. Rectal exam showed a small hemorrhoid. Colace was increased to 3x/day and we will monitor the HgB/Hct and patient will need Colonoscopy as outpatient. Dane Machado D.O.
[2017-01-05] MEDS: Aluminum Hydroxide/Magnesium Hydroxide Susp (30 mL) PO SCH (10:45)
[2017-01-05] MEDS: Saccharomyces Boulardi 250 mg Cap PO SCH ×2 (10:45→18:00)
[2017-01-05 11:20] LABS: BASO % 0.6 % (0.0-2.0); HEMATOCRIT 28.3 % (35.0-51.0); LYMPH # 0.4 K/uL (1.0-4.3); LYMPH % 12.9 % (20.0-40.0); MEAN CELL VOLUME 77.7 fL (80.0-94.0); MEAN CORPUSCULAR HEMOGLOBIN 25.7 pg (27.0-31.0); MEAN CORPUSCULAR HGB CONC 33.1 g/dL (33.0-37.0); MEAN PLATELET VOLUME 7.2 fL (7.2-11.7); MONO # 0.3 K/uL (0.0-0.8); MONO % 8.7 % (0.0-10.0); NRBC % 0.1 % (0.0-2.0); RED CELL DISTRIBUTION WIDTH 17.8 % (11.5-14.5); WHITE BLOOD COUNT 3.2 K/uL (4.8-10.8)
[2017-01-05 11:26] LABS: CHLORIDE 107 mmol/L (98-107)
[2017-01-05 11:27] LABS: POTASSIUM 3.7 mmol/L (3.6-5.2); SODIUM 142 mmol/L (132-148)
[2017-01-05 11:29] LABS: BILIRUBIN,TOTAL 0.5 mg/dL (0.2-1.3); CARBON DIOXIDE 25 mmol/L (22-30); GFR AFRICAN-AMERICAN > 60; TOTAL PROTEIN 6.3 g/dL (6.3-8.3)
[2017-01-05 11:30] LABS: ALKALINE PHOSPHATASE 66 U/L (38-126); ALT/SGPT 37 U/L (21-72); AST/SGOT 26 U/L (17-59); BLOOD UREA NITROGEN 19 mg/dL (9-20); CALCIUM 8.4 mg/dl (8.6-10.4); GLUCOSE,RANDOM 66 mg/dL (75-110); PHOSPHOROUS 2.3 mg/dL (2.5-4.5)
[2017-01-05 11:31] LABS: MAGNESIUM 1.6 mg/dL (1.6-2.3)
[2017-01-06] MEDS: Piperacill/Tazo 3.375gm in Dex 3.375 GM/50 ML BAG IVPB SCH ×4 (00:08→17:34)
[2017-01-06] MEDS: Saccharomyces Boulardi 250 mg Cap PO SCH ×2 (09:16→17:34)
[2017-01-06] MEDS: Aluminum Hydroxide/Magnesium Hydroxide Susp (30 mL) PO SCH (09:17)
--- NOTE | 2017-01-06 18:56 | CP.PCM.PN ---
<Eliana Stewart - Last Filed: 01/06/17 18:56> Subjective - Date & Time of Evaluation Date of Evaluation: 01/06/17 Time of Evaluation: 18:54 - Subjective Subjective: Patient seen and examined at bedside. Patient resting comfortably in bed. Patient says he has no pain in his groin where the central line was inserted. Patient no longer having blood in stool. He says he is feeling well other than his back pain which is controlled with flexeril. He denies fever, chills, CP, SOB, AP, N, V, D. Objective - Vital Signs/Intake and Output Vital Signs (last 24 hours): Temp Pulse Resp BP Pulse Ox 98.4 F 112 H 20 128/80 98 01/06/17 15:27 01/06/17 16:00 01/06/17 15:27 01/06/17 17:34 01/06/17 15:27 Intake and Output: 01/06/17 01/06/17 06:59 18:59 Intake Total 600 800 Output Total 850 700 Balance -250 100 - Medications Medications: Current Medications Al Hydrox/Mg Hydrox/Simethicone (Maalox 30 Ml) 30 ml PO DAILY [facility] Last Admin: 01/06/17 09:17 Dose: 30 ml Cyclobenzaprine HCl (Flexeril) 5 mg PO Q8H PRN PRN Reason: Muscle spasm Last Admin: 01/06/17 13:10 Dose: 5 mg Dicyclomine HCl (Bentyl) 20 mg PO Q8 PRN PRN Reason: ABDOMINAL PAIN Last Admin: 12/29/16 09:39 Dose: 20 mg Docusate Sodium (Colace) 100 mg PO TID [facility] Last Admin: 01/06/17 17:34 Dose: 100 mg Gabapentin (Neurontin) 300 mg PO BID [facility] Last Admin: 01/06/17 17:34 Dose: 300 mg Hydroxyzine HCl (Atarax) 50 mg PO Q6H PRN PRN Reason: Anxiety Last Admin: 01/06/17 09:17 Dose: 50 mg Piperacillin Sod/Tazobactam Sod (Zosyn 3.375 Gm Iv Premix) 3.375 gm in 50 mls @ 100 mls/hr IVPB Q6 [facility] Stop: 01/24/17 00:00 Last Admin: 09/21/17 17:34 Dose: 100 mls/hr Levetiracetam (Keppra) 500 mg PO BID [facility] Last Admin: 01/06/17 17:34 Dose: 500 mg Metoprolol Tartrate (Lopressor) 25 mg PO BID [facility] Last Admin: 01/06/17 17:34 Dose: 25 mg Ondansetron HCl (Zofran Tab) 4 mg PO Q8 PRN PRN Reason: Nausea/Vomiting Last Admin: 12/27/16 08:21 Dose: 4 mg Saccharomyces Boulardii (Florastor) 250 mg PO BID [facility] Last Admin: 01/06/17 17:34 Dose: 250 mg Sertraline HCl (Zoloft) 50 mg PO DAILY [facility] Last Admin: 01/06/17 09:17 Dose: 50 mg Trazodone HCl (Desyrel) 100 mg PO HS [facility] Last Admin: 01/05/17 23:04 Dose: 100 mg - Labs Labs: 01/05/17 11:16 01/05/17 11:16 PT 14.2 SECONDS (9.7-12.2) H 12/12/16 07:08 INR 1.3 12/12/16 07:08 APTT 32 SECONDS (21-34) 12/12/16 07:08 - Additional Findings Additional findings: - Constitutional Appears: Non-toxic, No Acute Distress - Head Exam Head Exam: NORMAL INSPECTION - Eye Exam Eye Exam: EOMI - ENT Exam ENT Exam: Mucous Membranes Moist - Respiratory Exam Respiratory Exam: Clear to Ausculation Bilateral, NORMAL BREATHING PATTERN. absent: Rales, Rhonchi, Wheezes - Cardiovascular Exam Cardiovascular Exam: REGULAR RHYTHM, Murmur (holosystolic ), Clicks. absent: Bradycardia - GI/Abdominal Exam GI & Abdominal Exam: Soft, Normal Bowel Sounds. absent: Distended, Guarding, Tenderness, Mass - Extremities Exam Extremities Exam: Normal Inspection. absent: Pedal Edema, Tenderness Additional comments: triple lumen central line in left groin without bleeding, swelling, or erythema - Neurological Exam Neurological Exam: Alert, Awake - Psychiatric Exam Psychiatric exam: Normal Affect, Normal Mood - Skin Skin Exam: Dry, Intact, Normal Color, Warm Assessment and Plan - Assessment and Plan (Free Text) Assessment: Bacteremia * CXR 12/12 - heterogenous infiltrate at inferior Right and Mid/inferior left lung zones vs atelectasis with likely small left pleural effusion and Right central venous line terminating at the right atrium; Repeat CXR 12/13 shows right IJ central venous line with tip in the SVC after adjustment and right lower lobe opacity with improvement * Echo 12/12: Mobile density seen with high velocities across AV highly suspicious for AV endocarditis, transmitral doppler flow pattern is grade 1 ( abnormal relaxation pattern), LV and RV systolic function normal, EF = 60-65% * Blood cultures 12/12 - Gram positive cocci in chains (Strep mitis in final read ) * Urine culture 12/12 - no growth * Cont Zosyn 3.375 gm Q6H for now and d/c Vancomycin 1 gm Q12H (12/14) - ID recs (Uriel) * 12/13 Vanc trough: 6.4 * Tylenol 650 mg PO Q6 prn fever. Due to history of hepatitis, consider switching to a different agent at some point. * Patient seen at [facility] in 09/2016. Patient had TTE at that time which did NOT show vegetations on valve. Patient was also seen by psychiatry at that time as well as general surgery for abscess I&D. Will attempt to obtain patient's March [facility] medical records with information regarding valve surgery * Dr. Willson was contacted and agreed to see the patient on consult as long as Dr. Rushing (cardiology) accepts the transfer under his care * Dr. Rushing (who originally cared for the patient at [facility]) did not return any of our calls so the patient will stay here for the remainder of his antibiotic treatment. * If not accepted, patient will need at least 6 weeks of antibiotics here - Patient on Zosyn until Jan.23 * Blood work to be changed to Sat/Mon/Wed schedule Systolic ejection murmur * Likely 2/2 aortic valve replacement x2 * Echo 12/12 showed vegetations * Cardio consult on 12/14 (Dr. Leyva): does not recommend CASPER at this time * Positive blood culture for Strep mitis (12/12/16) * Repeat Blood Cultures 12/14/16 and 12/16/16 showed NO growth at 5 days * Cont zosyn and d/c vanc per Dr. Trevino as stated above; F/U about abx coverage for strep mitis * Central Line removed and replaced in the left femoral vein (01/04) * Hx of IV drug use/porcine valve * CT surg consult (Dr. Peralta) - says should be followed up with surgeon who did original AV replacement (Dr. Willson) * See above * F/U Medical records from [facility] - call original surgeon for AV valve replacement and see if he would like to accept the patient at [facility] * CXR: Right-sided central venous catheter extends to the cavoatrial junction. Mild left basilar atelectasis/infiltrate and or small pleural effusion. Median sternotomy wires. Cardiomegaly. Low back pain * lumbar spine XR - No abnormalities seen * flexeril 5mg TID * MRI lumbar spine - No acute fracture, spondylolysis or spondylolisthesis. No evidence of discitis/osteomyelitis. Mild degenerative disc disease at L4-5 with a posterior disc bulge and superimposed right foraminal disc protrusion. Mild right neural foraminal stenosis. No central spinal canal stenosis. Note is made of splenomegaly, perisplenic and splenorenal arises in this patient with known hepatic cirrhosis. * Advised patient to walk around as much as tolerated Hematochezia * likely 2/2 hemorrhoid found on SMILEY * Colace TID * Patient will need out patient colonoscopy Left shoulder pain/weakness * 2/2 Hx of fall * Left shoulder XR (12/13) - no acute dislocation or fracture, soft tissues unremarkable Diarrhea * Stool Culture/O&P (12/12) - negative for O&P, salmonella, shigella, and campylobacter * Stool negative for leukocytes and occult blood (12/12) * Serum C. diff antigen and toxin negative (12/12) * Stool C diff (Neg) and repeat leukocytes (Neg) * stool culture 12/16 negative * Patient is currently constipated and simethicone was ordered (12/27) - obstruction series ordered 12/28 was negative; patient had a BM overnight History of Seizures * Continue Keppra 500 mg PO BID * Continue Gabapentin 300 mg PO BID History of Depression * Continue Zoloft 50 mg PO daily History of Hepatitis B & C * Monitor LFTs. 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 * On old admission growth factors like Neupogen (Filgrastim) were recommended for low WBC * Heme/Onc consulted (Alyx) - recs against IV iron supplementation at this time until infection resolves, transfusion support prn, plans to review peripheral smear, BM evaluation if counts do not return to baseline * HIV 1&2 Ab screen negative * Stool negative for occult blood Prophylactic Measure * Heparin and GI ppx held due to platelets * SCDs for now * Patient has been getting up every 2 hours and performing 10 laps around the floor * Maalox 30 ml PO once a day PRN indigestion Disposition: Patient on day of Zosyn (end date Jan.23). Blood work on Sat/Tue/Tue schedule. <Dane Machado - Last Filed: 01/06/17 19:32> Objective - Vital Signs/Intake and Output Vital Signs (last 24 hours): Temp Pulse Resp BP Pulse Ox 98.4 F 112 H 20 128/80 98 01/06/17 15:27 01/06/17 16:00 01/06/17 15:27 01/06/17 17:34 01/06/17 15:27 Intake and Output: 01/06/17 01/07/17 18:59 06:59 Intake Total 800 Output Total 700 Balance 100 - Medications Medications: Current Medications Al Hydrox/Mg Hydrox/Simethicone (Maalox 30 Ml) 30 ml PO DAILY [facility] Last Admin: 01/06/17 09:17 Dose: 30 ml Cyclobenzaprine HCl (Flexeril) 5 mg PO Q8H PRN PRN Reason: Muscle spasm Last Admin: 01/06/17 13:10 Dose: 5 mg Dicyclomine HCl (Bentyl) 20 mg PO Q8 PRN PRN Reason: ABDOMINAL PAIN Last Admin: 12/29/16 09:39 Dose: 20 mg Docusate Sodium (Colace) 100 mg PO TID [facility] Last Admin: 01/06/17 17:34 Dose: 100 mg Gabapentin (Neurontin) 300 mg PO BID [facility] Last Admin: 01/06/17 17:34 Dose: 300 mg Hydroxyzine HCl (Atarax) 50 mg PO Q6H PRN PRN Reason: Anxiety Last Admin: 01/06/17 09:17 Dose: 50 mg Piperacillin Sod/Tazobactam Sod (Zosyn 3.375 Gm Iv Premix) 3.375 gm in 50 mls @ 100 mls/hr IVPB Q6 [facility] Stop: 01/24/17 00:00 Last Admin: 01/06/17 17:34 Dose: 100 mls/hr Levetiracetam (Keppra) 500 mg PO BID [facility] Last Admin: 01/06/17 17:34 Dose: 500 mg Metoprolol Tartrate (Lopressor) 25 mg PO BID [facility] Last Admin: 01/06/17 17:34 Dose: 25 mg Ondansetron HCl (Zofran Tab) 4 mg PO Q8 PRN PRN Reason: Nausea/Vomiting Last Admin: 12/27/16 08:21 Dose: 4 mg Saccharomyces Boulardii (Florastor) 250 mg PO BID [facility] Last Admin: 01/06/17 17:34 Dose: 250 mg Sertraline HCl (Zoloft) 50 mg PO DAILY [facility] Last Admin: 01/06/17 09:17 Dose: 50 mg Trazodone HCl (Desyrel) 100 mg PO HS [facility] Last Admin: 01/05/17 23:04 Dose: 100 mg - Labs Labs: 01/05/17 11:16 01/05/17 11:16 PT 14.2 SECONDS (9.7-12.2) H 12/12/16 07:08 INR 1.3 12/12/16 07:08 APTT 32 SECONDS (21-34) 12/12/16 07:08 Attending/Attestation - Attestation I have personally seen and examined this patient.: Yes I have fully participated in the care of the patient.: Yes I have reviewed all pertinent clinical information, including history, physical exam and plan: Yes Notes (Text): 01/06/17 19:27 Patient was seen and examined at 8:30 AM 01/06/17 Exam, Assessment and Plan were thoroughly gone over with the patient. NO longer with bloody bowel movement. IV Antibiotic till 02/02/17. Dane Machado D.O.
[2017-01-07] MEDS: Piperacill/Tazo 3.375gm in Dex 3.375 GM/50 ML BAG IVPB SCH ×5 (00:19→23:57)
[2017-01-07 07:21] LABS: BASO % 0.4 % (0.0-2.0); EOS % 0.8 % (0.0-4.0); HEMATOCRIT 28.8 % (35.0-51.0); LYMPH # 0.5 K/uL (1.0-4.3); MEAN CELL VOLUME 78.7 fL (80.0-94.0); MEAN CORPUSCULAR HEMOGLOBIN 25.8 pg (27.0-31.0); MEAN CORPUSCULAR HGB CONC 32.8 g/dL (33.0-37.0); MEAN PLATELET VOLUME 8.1 fL (7.2-11.7); MONO # 0.3 K/uL (0.0-0.8); MONO % 7.5 % (0.0-10.0); NRBC % 0.1 % (0.0-2.0); WHITE BLOOD COUNT 4.1 K/uL (4.8-10.8)
[2017-01-07 08:15] LABS: CHLORIDE 105 mmol/L (98-107); POTASSIUM 3.7 mmol/L (3.6-5.2); SODIUM 140 mmol/L (132-148)
[2017-01-07 08:17] LABS: GFR AFRICAN-AMERICAN > 60
[2017-01-07 08:18] LABS: ALB/GLOB RATIO 0.9 (1.0-2.1); ALKALINE PHOSPHATASE 63 U/L (38-126); ALT/SGPT 37 U/L (21-72); AST/SGOT 28 U/L (17-59); BILIRUBIN,TOTAL 0.5 mg/dL (0.2-1.3); BLOOD UREA NITROGEN 15 mg/dL (9-20); CARBON DIOXIDE 25 mmol/L (22-30); GLUCOSE,RANDOM 86 mg/dL (75-110); PHOSPHOROUS 3.6 mg/dL (2.5-4.5); TOTAL PROTEIN 6.2 g/dL (6.3-8.3)
[2017-01-07 08:19] LABS: CALCIUM 8.4 mg/dl (8.6-10.4); MAGNESIUM 1.5 mg/dL (1.6-2.3)
[2017-01-07] MEDS: Aluminum Hydroxide/Magnesium Hydroxide Susp (30 mL) PO SCH (09:00)
[2017-01-07] MEDS: Saccharomyces Boulardi 250 mg Cap PO SCH ×2 (09:00→17:19)
[2017-01-07] MEDS ORDERED: Magnesium Citrate Oral SOL (300 ml) PO ONE (09:16)
--- NOTE | 2017-01-07 10:33 | CP.PCM.PN ---
<Eliana Stewart - Last Filed: 01/07/17 16:02> Subjective - Date & Time of Evaluation Date of Evaluation: 01/07/17 Time of Evaluation: 10:33 - Subjective Subjective: Patient seen and examined at bedside. Patient resting comfortably in bed. Patient says he has no pain in his groin where the central line was inserted. Patient has been having some hard BMs but is no longer having blood in stool. He says he is feeling well other than his back pain which is controlled with flexeril. He denies fever, chills, CP, SOB, AP, N, V, D. Objective - Vital Signs/Intake and Output Vital Signs (last 24 hours): Temp Pulse Resp BP Pulse Ox 98.4 F 100 H 20 119/77 96 01/07/17 07:40 01/07/17 07:40 01/07/17 07:40 01/07/17 09:00 01/07/17 07:40 Intake and Output: 01/07/17 01/07/17 06:59 18:59 Intake Total 340 Output Total 1100 Balance -760 - Medications Medications: Current Medications Al Hydrox/Mg Hydrox/Simethicone (Maalox 30 Ml) 30 ml PO DAILY [facility] Last Admin: 01/07/17 09:00 Dose: 30 ml Cyclobenzaprine HCl (Flexeril) 5 mg PO Q8H PRN PRN Reason: Muscle spasm Last Admin: 01/07/17 08:54 Dose: 5 mg Dicyclomine HCl (Bentyl) 20 mg PO Q8 PRN PRN Reason: ABDOMINAL PAIN Last Admin: 12/29/16 09:39 Dose: 20 mg Docusate Sodium (Colace) 100 mg PO TID [facility] Last Admin: 01/07/17 09:00 Dose: 100 mg Gabapentin (Neurontin) 300 mg PO BID [facility] Last Admin: 01/07/17 09:04 Dose: 300 mg Hydroxyzine HCl (Atarax) 50 mg PO Q6H PRN PRN Reason: Anxiety Last Admin: 01/07/17 08:54 Dose: 50 mg Piperacillin Sod/Tazobactam Sod (Zosyn 3.375 Gm Iv Premix) 3.375 gm in 50 mls @ 100 mls/hr IVPB Q6 [facility] Stop: 01/24/17 00:00 Last Admin: 01/07/17 05:44 Dose: 100 mls/hr Levetiracetam (Keppra) 500 mg PO BID [facility] Last Admin: 01/07/17 09:00 Dose: 500 mg Metoprolol Tartrate (Lopressor) 25 mg PO BID [facility] Last Admin: 01/07/17 09:00 Dose: 25 mg Ondansetron HCl (Zofran Tab) 4 mg PO Q8 PRN PRN Reason: Nausea/Vomiting Last Admin: 12/27/16 08:21 Dose: 4 mg Saccharomyces Boulardii (Florastor) 250 mg PO BID [facility] Last Admin: 01/07/17 09:00 Dose: 250 mg Sertraline HCl (Zoloft) 50 mg PO DAILY [facility] Last Admin: 01/07/17 09:00 Dose: 50 mg Trazodone HCl (Desyrel) 100 mg PO HS [facility] Last Admin: 01/06/17 23:00 Dose: 100 mg - Labs Labs: 01/07/17 07:10 01/07/17 07:10 PT 14.2 SECONDS (9.7-12.2) H 12/12/16 07:08 INR 1.3 12/12/16 07:08 APTT 32 SECONDS (21-34) 12/12/16 07:08 - Additional Findings Additional findings: - Additional Findings Additional findings: - Constitutional Appears: Non-toxic, No Acute Distress - Head Exam Head Exam: NORMAL INSPECTION - Eye Exam Eye Exam: EOMI - ENT Exam ENT Exam: Mucous Membranes Moist - Respiratory Exam Respiratory Exam: Clear to Ausculation Bilateral, NORMAL BREATHING PATTERN. absent: Rales, Rhonchi, Wheezes - Cardiovascular Exam Cardiovascular Exam: REGULAR RHYTHM, Murmur (holosystolic ), Clicks. absent: Bradycardia - GI/Abdominal Exam GI & Abdominal Exam: Soft, Normal Bowel Sounds. absent: Distended, Guarding, Tenderness, Mass - Extremities Exam Extremities Exam: Normal Inspection. absent: Pedal Edema, Tenderness Additional comments: triple lumen central line in left groin without bleeding, swelling, or erythema - Neurological Exam Neurological Exam: Alert, Awake - Psychiatric Exam Psychiatric exam: Normal Affect, Normal Mood - Skin Skin Exam: Dry, Intact, Normal Color, Warm Assessment and Plan - Assessment and Plan (Free Text) Assessment: Bacteremia * CXR 12/12 - heterogenous infiltrate at inferior Right and Mid/inferior left lung zones vs atelectasis with likely small left pleural effusion and Right central venous line terminating at the right atrium; Repeat CXR 12/13 shows right IJ central venous line with tip in the SVC after adjustment and right lower lobe opacity with improvement * Echo 12/12: Mobile density seen with high velocities across AV highly suspicious for AV endocarditis, transmitral doppler flow pattern is grade 1 ( abnormal relaxation pattern), LV and RV systolic function normal, EF = 60-65% * Blood cultures 12/12 - Gram positive cocci in chains (Strep mitis in final read ) * Urine culture 12/12 - no growth * Cont Zosyn 3.375 gm Q6H for now and d/c Vancomycin 1 gm Q12H (12/14) - ID recs (Uriel) * 12/13 Vanc trough: 6.4 * Tylenol 650 mg PO Q6 prn fever. Due to history of hepatitis, consider switching to a different agent at some point. * Patient seen at [facility] in 09/2016. Patient had TTE at that time which did NOT show vegetations on valve. Patient was also seen by psychiatry at that time as well as general surgery for abscess I&D. Will attempt to obtain patient's March [facility] medical records with information regarding valve surgery * Dr. Willson was contacted and agreed to see the patient on consult as long as Dr. Rushing (cardiology) accepts the transfer under his care * Dr. Rushing (who originally cared for the patient at [facility]) did not return any of our calls so the patient will stay here for the remainder of his antibiotic treatment. * If not accepted, patient will need at least 6 weeks of antibiotics here - Patient on Zosyn until Jan.23 * Blood work to be changed to Sat/Mon/Wed schedule Systolic ejection murmur * Likely 2/2 aortic valve replacement x2 * Echo 12/12 showed vegetations * Cardio consult on 12/14 (Dr. Leyva): does not recommend CASPER at this time * Positive blood culture for Strep mitis (12/12/16) * Repeat Blood Cultures 12/14/16 and 12/16/16 showed NO growth at 5 days * Cont zosyn and d/c vanc per Dr. Trevino as stated above; F/U about abx coverage for strep mitis * Central Line removed and replaced in the left femoral vein (01/04) * Hx of IV drug use/porcine valve * CT surg consult (Dr. Peralta) - says should be followed up with surgeon who did original AV replacement (Dr. Willson) * See above * F/U Medical records from [facility] - call original surgeon for AV valve replacement and see if he would like to accept the patient at [facility] * CXR: Right-sided central venous catheter extends to the cavoatrial junction. Mild left basilar atelectasis/infiltrate and or small pleural effusion. Median sternotomy wires. Cardiomegaly. Low back pain * lumbar spine XR - No abnormalities seen * flexeril 5mg TID * MRI lumbar spine - No acute fracture, spondylolysis or spondylolisthesis. No evidence of discitis/osteomyelitis. Mild degenerative disc disease at L4-5 with a posterior disc bulge and superimposed right foraminal disc protrusion. Mild right neural foraminal stenosis. No central spinal canal stenosis. Note is made of splenomegaly, perisplenic and splenorenal arises in this patient with known hepatic cirrhosis. * Advised patient to walk around as much as tolerated Hematochezia * Resolved * likely 2/2 hemorrhoid found on SMILEY * Colace TID * Patient will need out patient colonoscopy Left shoulder pain/weakness * 2/2 Hx of fall * Left shoulder XR (12/13) - no acute dislocation or fracture, soft tissues unremarkable Diarrhea * Resolved * Stool Culture/O&P (12/12) - negative for O&P, salmonella, shigella, and campylobacter * Stool negative for leukocytes and occult blood (12/12) * Serum C. diff antigen and toxin negative (12/12) * Stool C diff (Neg) and repeat leukocytes (Neg) * stool culture 12/16 negative * Patient is occasionally constipated - obstruction series ordered 12/28 was negative * Managed on PRN basis History of Seizures * Continue Keppra 500 mg PO BID * Continue Gabapentin 300 mg PO BID History of Depression * Continue Zoloft 50 mg PO daily History of Hepatitis B & C * Monitor LFTs. 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 * On old admission growth factors like Neupogen (Filgrastim) were recommended for low WBC * Heme/Onc consulted (Alyx) - recs against IV iron supplementation at this time until infection resolves, transfusion support prn, plans to review peripheral smear, BM evaluation if counts do not return to baseline * HIV 1&2 Ab screen negative * Stool negative for occult blood Prophylactic Measure * Heparin and GI ppx held due to platelets * SCDs for now * Patient has been getting up every 2 hours and performing 10 laps around the floor * Maalox 30 ml PO once a day PRN indigestion Disposition: Patient on day of Zosyn (end date Jan.23). Blood work on Sat/Mon/Wed schedule. Patient will need referral to Narcotics Anonymous upon discharge. <Dane Machado - Last Filed: 01/07/17 19:28> Objective - Vital Signs/Intake and Output Vital Signs (last 24 hours): Temp Pulse Resp BP Pulse Ox 98.7 F 96 H 20 120/80 98 01/07/17 15:24 01/07/17 15:24 01/07/17 15:24 01/07/17 17:18 01/07/17 15:24 Intake and Output: 01/07/17 01/08/17 18:59 06:59 Intake Total 900 Output Total 700 Balance 200 - Medications Medications: Current Medications Al Hydrox/Mg Hydrox/Simethicone (Maalox 30 Ml) 30 ml PO DAILY [facility] Last Admin: 01/07/17 09:00 Dose: 30 ml Cyclobenzaprine HCl (Flexeril) 5 mg PO Q8H PRN PRN Reason: Muscle spasm Last Admin: 01/07/17 17:17 Dose: 5 mg Dicyclomine HCl (Bentyl) 20 mg PO Q8 PRN PRN Reason: ABDOMINAL PAIN Last Admin: 12/29/16 09:39 Dose: 20 mg Docusate Sodium (Colace) 100 mg PO TID [facility] Last Admin: 01/07/17 17:19 Dose: 100 mg Gabapentin (Neurontin) 300 mg PO BID [facility] Last Admin: 01/07/17 17:18 Dose: 300 mg Hydroxyzine HCl (Atarax) 50 mg PO Q6H PRN PRN Reason: Anxiety Last Admin: 01/07/17 08:54 Dose: 50 mg Piperacillin Sod/Tazobactam Sod (Zosyn 3.375 Gm Iv Premix) 3.375 gm in 50 mls @ 100 mls/hr IVPB Q6 [facility] Stop: 01/24/17 00:00 Last Admin: 01/07/17 17:16 Dose: 100 mls/hr Levetiracetam (Keppra) 500 mg PO BID [facility] Last Admin: 01/07/17 17:19 Dose: 500 mg Metoprolol Tartrate (Lopressor) 25 mg PO BID [facility] Last Admin: 01/07/17 17:18 Dose: 25 mg Ondansetron HCl (Zofran Tab) 4 mg PO Q8 PRN PRN Reason: Nausea/Vomiting Last Admin: 12/27/16 08:21 Dose: 4 mg Saccharomyces Boulardii (Florastor) 250 mg PO BID [facility] Last Admin: 01/07/17 17:19 Dose: 250 mg Sertraline HCl (Zoloft) 50 mg PO DAILY [facility] Last Admin: 01/07/17 09:00 Dose: 50 mg Trazodone HCl (Desyrel) 100 mg PO HS [facility] Last Admin: 01/06/17 23:00 Dose: 100 mg - Labs Labs: 01/07/17 07:10 01/07/17 07:10 PT 14.2 SECONDS (9.7-12.2) H 12/12/16 07:08 INR 1.3 12/12/16 07:08 APTT 32 SECONDS (21-34) 12/12/16 07:08 Attending/Attestation - Attestation I have personally seen and examined this patient.: Yes I have fully participated in the care of the patient.: Yes I have reviewed all pertinent clinical information, including history, physical exam and plan: Yes Notes (Text): 01/07/17 19:26 Patient was seen and examined at 9:00 AM 01/07/17. Exam, Assessment and Plan were thoroughly gone over with the resident. Please note that patient is on Day of [facility]. Dane Machado D.O.
[2017-01-08] MEDS: Piperacill/Tazo 3.375gm in Dex 3.375 GM/50 ML BAG IVPB SCH ×4 (05:13→23:41)
--- NOTE | 2017-01-08 09:04 | CP.PCM.PN ---
<Shorty Nina - Last Filed: 01/08/17 09:01> Subjective - Date & Time of Evaluation Date of Evaluation: 01/08/17 Time of Evaluation: 09:01 - Subjective Subjective: PGY1 Note for Dr. Machado HPI: Patient seen and examined at bedside. Doing well with no complaints at this time. States he no longer has blood in his stool. Tolerating diet. No chest pain, SOB, N/V/D/F/C Objective - Vital Signs/Intake and Output Vital Signs (last 24 hours): Temp Pulse Resp BP Pulse Ox 99.5 F 102 H 18 114/75 96 01/08/17 07:25 01/08/17 07:58 01/08/17 07:25 01/08/17 07:25 01/08/17 07:25 Intake and Output: 01/08/17 01/08/17 06:59 18:59 Intake Total 770 Output Total 400 Balance 370 - Medications Medications: Current Medications Al Hydrox/Mg Hydrox/Simethicone (Maalox 30 Ml) 30 ml PO DAILY [facility] Last Admin: 01/07/17 09:00 Dose: 30 ml Cyclobenzaprine HCl (Flexeril) 5 mg PO Q8H PRN PRN Reason: Muscle spasm Last Admin: 01/08/17 05:17 Dose: 5 mg Dicyclomine HCl (Bentyl) 20 mg PO Q8 PRN PRN Reason: ABDOMINAL PAIN Last Admin: 12/29/16 09:39 Dose: 20 mg Docusate Sodium (Colace) 100 mg PO TID [facility] Last Admin: 01/07/17 17:19 Dose: 100 mg Gabapentin (Neurontin) 300 mg PO BID [facility] Last Admin: 01/07/17 17:18 Dose: 300 mg Hydroxyzine HCl (Atarax) 50 mg PO Q6H PRN PRN Reason: Anxiety Last Admin: 01/07/17 08:54 Dose: 50 mg Piperacillin Sod/Tazobactam Sod (Zosyn 3.375 Gm Iv Premix) 3.375 gm in 50 mls @ 100 mls/hr IVPB Q6 [facility] Stop: 01/24/17 00:00 Last Admin: 01/08/17 05:13 Dose: 100 mls/hr Levetiracetam (Keppra) 500 mg PO BID [facility] Last Admin: 01/07/17 17:19 Dose: 500 mg Metoprolol Tartrate (Lopressor) 25 mg PO BID [facility] Last Admin: 01/07/17 17:18 Dose: 25 mg Ondansetron HCl (Zofran Tab) 4 mg PO Q8 PRN PRN Reason: Nausea/Vomiting Last Admin: 12/27/16 08:21 Dose: 4 mg Saccharomyces Boulardii (Florastor) 250 mg PO BID [facility] Last Admin: 01/07/17 17:19 Dose: 250 mg Sertraline HCl (Zoloft) 50 mg PO DAILY [facility] Last Admin: 01/07/17 09:00 Dose: 50 mg Trazodone HCl (Desyrel) 100 mg PO HS [facility] Last Admin: 01/07/17 21:07 Dose: 100 mg - Labs Labs: 01/07/17 07:10 01/07/17 07:10 PT 14.2 SECONDS (9.7-12.2) H 12/12/16 07:08 INR 1.3 12/12/16 07:08 APTT 32 SECONDS (21-34) 12/12/16 07:08 - Constitutional Appears: Well, Non-toxic, No Acute Distress - Head Exam Head Exam: ATRAUMATIC, NORMAL INSPECTION, NORMOCEPHALIC - Eye Exam Eye Exam: EOMI Pupil Exam: NORMAL ACCOMODATION - ENT Exam ENT Exam: Mucous Membranes Moist - Neck Exam Neck Exam: Normal Inspection - Respiratory Exam Respiratory Exam: Clear to Ausculation Bilateral, NORMAL BREATHING PATTERN - Cardiovascular Exam Cardiovascular Exam: REGULAR RHYTHM - GI/Abdominal Exam GI & Abdominal Exam: Soft, Normal Bowel Sounds. absent: Distended, Tenderness - Extremities Exam Extremities Exam: absent: Joint Swelling, Tenderness Additional comments: TLC in L. Fem - Back Exam Back Exam: absent: CVA tenderness (L), CVA tenderness (R) - Neurological Exam Neurological Exam: Alert, Awake, Oriented x3 - Psychiatric Exam Psychiatric exam: Normal Affect, Normal Mood - Skin Skin Exam: Dry, Intact, Normal Color, Warm Assessment and Plan - Assessment and Plan (Free Text) Assessment: Bacteremia * CXR 12/12 - heterogenous infiltrate at inferior Right and Mid/inferior left lung zones vs atelectasis with likely small left pleural effusion and Right central venous line terminating at the right atrium; Repeat CXR 12/13 shows right IJ central venous line with tip in the SVC after adjustment and right lower lobe opacity with improvement * Echo 12/12: Mobile density seen with high velocities across AV highly suspicious for AV endocarditis, transmitral doppler flow pattern is grade 1 ( abnormal relaxation pattern), LV and RV systolic function normal, EF = 60-65% * Blood cultures 12/12 - Gram positive cocci in chains (Strep mitis in final read ) * Urine culture 12/12 - no growth * Cont Zosyn 3.375 gm Q6H for now and d/c Vancomycin 1 gm Q12H (12/14) - ID recs (Uriel) * 12/13 Vanc trough: 6.4 * Tylenol 650 mg PO Q6 prn fever. Due to history of hepatitis, consider switching to a different agent at some point. * Patient seen at [facility] in 09/2016. Patient had TTE at that time which did NOT show vegetations on valve. Patient was also seen by psychiatry at that time as well as general surgery for abscess I&D. Will attempt to obtain patient's March [facility] medical records with information regarding valve surgery * Dr. Willson was contacted and agreed to see the patient on consult as long as Dr. Rushing (cardiology) accepts the transfer under his care * Dr. Rushing (who originally cared for the patient at [facility] [place]) did not return any of our calls so the patient will stay here for the remainder of his antibiotic treatment. * If not accepted, patient will need at least 6 weeks of antibiotics here - Patient on Zosyn until Jan.23 * Blood work to be changed to Sat/Mon/Wed schedule Systolic ejection murmur * Likely 2/2 aortic valve replacement x2 * Echo 12/12 showed vegetations * Cardio consult on 12/14 (Dr. Leyva): does not recommend CASPER at this time * Positive blood culture for Strep mitis (12/12/16) * Repeat Blood Cultures 12/14/16 and 12/16/16 showed NO growth at 5 days * Cont zosyn and d/c vanc per Dr. Trevino as stated above; F/U about abx coverage for strep mitis * Central Line removed and replaced in the left femoral vein (01/04) * Hx of IV drug use/porcine valve * CT surg consult (Dr. Peralta) - says should be followed up with surgeon who did original AV replacement (Dr. Willson) * See above * F/U Medical records from [facility] - call original surgeon for AV valve replacement and see if he would like to accept the patient at [facility] [place] * CXR: Right-sided central venous catheter extends to the cavoatrial junction. Mild left basilar atelectasis/infiltrate and or small pleural effusion. Median sternotomy wires. Cardiomegaly. Low back pain * lumbar spine XR - No abnormalities seen * flexeril 5mg TID * MRI lumbar spine - No acute fracture, spondylolysis or spondylolisthesis. No evidence of discitis/osteomyelitis. Mild degenerative disc disease at L4-5 with a posterior disc bulge and superimposed right foraminal disc protrusion. Mild right neural foraminal stenosis. No central spinal canal stenosis. Note is made of splenomegaly, perisplenic and splenorenal arises in this patient with known hepatic cirrhosis. * Advised patient to walk around as much as tolerated Hematochezia * Resolved * likely 2/2 hemorrhoid found on SMILEY * Colace TID * Patient will need out patient colonoscopy Left shoulder pain/weakness * 2/2 Hx of fall * Left shoulder XR (12/13) - no acute dislocation or fracture, soft tissues unremarkable Diarrhea * Resolved * Stool Culture/O&P (12/12) - negative for O&P, salmonella, shigella, and campylobacter * Stool negative for leukocytes and occult blood (12/12) * Serum C. diff antigen and toxin negative (12/12) * Stool C diff (Neg) and repeat leukocytes (Neg) * stool culture 12/16 negative * Patient is occasionally constipated - obstruction series ordered 12/28 was negative * Managed on PRN basis History of Seizures * Continue Keppra 500 mg PO BID * Continue Gabapentin 300 mg PO BID History of Depression * Continue Zoloft 50 mg PO daily History of Hepatitis B & C * Monitor LFTs. 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 * On old admission growth factors like Neupogen (Filgrastim) were recommended for low WBC * Heme/Onc consulted (Alyx) - recs against IV iron supplementation at this time until infection resolves, transfusion support prn, plans to review peripheral smear, BM evaluation if counts do not return to baseline * HIV 1&2 Ab screen negative * Stool negative for occult blood Prophylactic Measure * Heparin and GI ppx held due to platelets * SCDs for now * Patient has been getting up every 2 hours and performing 10 laps around the floor * Maalox 30 ml PO once a day PRN indigestion Disposition: Patient on day of Zosyn (end date Jan.23). Blood work on Sat/Mon/Wed schedule. Patient will need referral to Narcotics Anonymous upon discharge. <Dane Machado - Last Filed: 01/08/17 19:22> Objective - Vital Signs/Intake and Output Vital Signs (last 24 hours): Temp Pulse Resp BP Pulse Ox 98.3 F 109 H 20 138/83 98 01/08/17 19:03 01/08/17 19:03 01/08/17 19:03 01/08/17 19:12 01/08/17 19:03 Intake and Output: 01/08/17 01/09/17 18:59 06:59 Intake Total 600 Balance 600 - Medications Medications: Current Medications Al Hydrox/Mg Hydrox/Simethicone (Maalox 30 Ml) 30 ml PO DAILY [facility] Last Admin: 01/08/17 10:33 Dose: 30 ml Cyclobenzaprine HCl (Flexeril) 5 mg PO Q8H PRN PRN Reason: Muscle spasm Last Admin: 01/08/17 13:19 Dose: 5 mg Dicyclomine HCl (Bentyl) 20 mg PO Q8 PRN PRN Reason: ABDOMINAL PAIN Last Admin: 12/29/16 09:39 Dose: 20 mg Docusate Sodium (Colace) 100 mg PO TID [facility] Last Admin: 01/08/17 19:13 Dose: Not Given Gabapentin (Neurontin) 300 mg PO BID [facility] Last Admin: 01/08/17 19:11 Dose: 300 mg Hydroxyzine HCl (Atarax) 50 mg PO Q6H PRN PRN Reason: Anxiety Last Admin: 01/08/17 10:33 Dose: 50 mg Piperacillin Sod/Tazobactam Sod (Zosyn 3.375 Gm Iv Premix) 3.375 gm in 50 mls @ 100 mls/hr IVPB Q6 [facility] Stop: 01/24/17 00:00 Last Admin: 01/08/17 19:12 Dose: 100 mls/hr Levetiracetam (Keppra) 500 mg PO BID [facility] Last Admin: 01/08/17 19:11 Dose: 500 mg Metoprolol Tartrate (Lopressor) 25 mg PO BID [facility] Last Admin: 01/08/17 19:12 Dose: 25 mg Ondansetron HCl (Zofran Tab) 4 mg PO Q8 PRN PRN Reason: Nausea/Vomiting Last Admin: 12/27/16 08:21 Dose: 4 mg Saccharomyces Boulardii (Florastor) 250 mg PO BID [facility] Last Admin: 01/08/17 19:11 Dose: 250 mg Sertraline HCl (Zoloft) 50 mg PO DAILY [facility] Last Admin: 01/08/17 10:33 Dose: 50 mg Trazodone HCl (Desyrel) 100 mg PO HS [facility] Last Admin: 01/07/17 21:07 Dose: 100 mg - Labs Labs: 01/07/17 07:10 01/07/17 07:10 PT 14.2 SECONDS (9.7-12.2) H 12/12/16 07:08 INR 1.3 12/12/16 07:08 APTT 32 SECONDS (21-34) 12/12/16 07:08 Attending/Attestation - Attestation I have personally seen and examined this patient.: Yes I have fully participated in the care of the patient.: Yes I have reviewed all pertinent clinical information, including history, physical exam and plan: Yes Notes (Text): 01/08/17 19:20 Patient was seen and examined at 1:15 PM 01/08/17 Exam, assessment and plan were thoroughly gone over with the resident. Please note that the last day of antibiotic is 01/23/17. He is on Day of Zosyn. Dane Machado D.O.
[2017-01-08] MEDS: Aluminum Hydroxide/Magnesium Hydroxide Susp (30 mL) PO SCH (10:33)
[2017-01-08] MEDS: Saccharomyces Boulardi 250 mg Cap PO SCH ×2 (10:33→19:11)
--- NOTE | 2017-01-09 00:22 | CP.PCM.PN ---
<Shorty Nina - Last Filed: 01/09/17 00:18> Subjective - Date & Time of Evaluation Date of Evaluation: 01/09/17 Time of Evaluation: 00:18 - Subjective Subjective: PGY1 Note for Dr. Machado HPI: Patient seen and examined at bedside. Doing well with no complaints at this time. Tolerating diet. No chest pain, N/V/D/F/Chills. Denies palpitations. Objective - Vital Signs/Intake and Output Vital Signs (last 24 hours): Temp Pulse Resp BP Pulse Ox 98.3 F 109 H 20 138/83 98 01/08/17 19:03 01/08/17 19:03 01/08/17 19:03 01/08/17 19:12 01/08/17 19:03 Intake and Output: 01/08/17 01/09/17 18:59 06:59 Intake Total 600 Balance 600 - Medications Medications: Current Medications Al Hydrox/Mg Hydrox/Simethicone (Maalox 30 Ml) 30 ml PO DAILY [facility] Last Admin: 01/08/17 10:33 Dose: 30 ml Cyclobenzaprine HCl (Flexeril) 5 mg PO Q8H PRN PRN Reason: Muscle spasm Last Admin: 01/08/17 23:09 Dose: 5 mg Dicyclomine HCl (Bentyl) 20 mg PO Q8 PRN PRN Reason: ABDOMINAL PAIN Last Admin: 12/29/16 09:39 Dose: 20 mg Docusate Sodium (Colace) 100 mg PO TID [facility] Last Admin: 01/08/17 19:13 Dose: Not Given Gabapentin (Neurontin) 300 mg PO BID [facility] Last Admin: 01/08/17 19:11 Dose: 300 mg Hydroxyzine HCl (Atarax) 50 mg PO Q6H PRN PRN Reason: Anxiety Last Admin: 01/08/17 10:33 Dose: 50 mg Piperacillin Sod/Tazobactam Sod (Zosyn 3.375 Gm Iv Premix) 3.375 gm in 50 mls @ 100 mls/hr IVPB Q6 [facility] Stop: 01/24/17 00:00 Last Admin: 01/08/17 23:41 Dose: 100 mls/hr Levetiracetam (Keppra) 500 mg PO BID [facility] Last Admin: 01/08/17 19:11 Dose: 500 mg Metoprolol Tartrate (Lopressor) 25 mg PO BID [facility] Last Admin: 01/08/17 19:12 Dose: 25 mg Ondansetron HCl (Zofran Tab) 4 mg PO Q8 PRN PRN Reason: Nausea/Vomiting Last Admin: 12/27/16 08:21 Dose: 4 mg Saccharomyces Boulardii (Florastor) 250 mg PO BID [facility] Last Admin: 01/08/17 19:11 Dose: 250 mg Sertraline HCl (Zoloft) 50 mg PO DAILY [facility] Last Admin: 01/08/17 10:33 Dose: 50 mg Trazodone HCl (Desyrel) 100 mg PO HS [facility] Last Admin: 01/08/17 23:07 Dose: 100 mg - Labs Labs: 01/07/17 07:10 01/07/17 07:10 PT 14.2 SECONDS (9.7-12.2) H 12/12/16 07:08 INR 1.3 12/12/16 07:08 APTT 32 SECONDS (21-34) 12/12/16 07:08 - Constitutional Appears: Well, Non-toxic, No Acute Distress - Head Exam Head Exam: ATRAUMATIC, NORMAL INSPECTION, NORMOCEPHALIC - Eye Exam Eye Exam: EOMI Pupil Exam: NORMAL ACCOMODATION - ENT Exam ENT Exam: Mucous Membranes Moist - Respiratory Exam Respiratory Exam: Clear to Ausculation Bilateral, NORMAL BREATHING PATTERN - Cardiovascular Exam Cardiovascular Exam: REGULAR RHYTHM - GI/Abdominal Exam GI & Abdominal Exam: Soft, Normal Bowel Sounds. absent: Distended, Tenderness - Extremities Exam Extremities Exam: absent: Joint Swelling, Tenderness Additional comments: TLC in L. fem. Cant get blood return from middle lumen (brown cap) - Back Exam Back Exam: absent: CVA tenderness (L), CVA tenderness (R) - Neurological Exam Neurological Exam: Alert, Awake, Oriented x3 - Psychiatric Exam Psychiatric exam: Normal Affect, Normal Mood - Skin Skin Exam: Dry, Intact, Normal Color, Warm Assessment and Plan - Assessment and Plan (Free Text) Assessment: Bacteremia * CXR 12/12 - heterogenous infiltrate at inferior Right and Mid/inferior left lung zones vs atelectasis with likely small left pleural effusion and Right central venous line terminating at the right atrium; Repeat CXR 12/13 shows right IJ central venous line with tip in the SVC after adjustment and right lower lobe opacity with improvement * Echo 12/12: Mobile density seen with high velocities across AV highly suspicious for AV endocarditis, transmitral doppler flow pattern is grade 1 ( abnormal relaxation pattern), LV and RV systolic function normal, EF = 60-65% * Blood cultures 12/12 - Gram positive cocci in chains (Strep mitis in final read ) * Urine culture 12/12 - no growth * Cont Zosyn 3.375 gm Q6H for now and d/c Vancomycin 1 gm Q12H (12/14) - ID recs (Uriel) * 12/13 Vanc trough: 6.4 * Tylenol 650 mg PO Q6 prn fever. Due to history of hepatitis, consider switching to a different agent at some point. * Patient seen at [facility] [place] in 09/2016. Patient had TTE at that time which did NOT show vegetations on valve. Patient was also seen by psychiatry at that time as well as general surgery for abscess I&D. Will attempt to obtain patient's March [facility] [place] medical records with information regarding valve surgery * Dr. Willson was contacted and agreed to see the patient on consult as long as Dr. Rushing (cardiology) accepts the transfer under his care * Dr. Rushing (who originally cared for the patient at [facility] [place]) did not return any of our calls so the patient will stay here for the remainder of his antibiotic treatment. * If not accepted, patient will need at least 6 weeks of antibiotics here - Patient on Zosyn until Jan.23 * Blood work to be changed to Sat/Mon/Wed schedule Systolic ejection murmur * Likely 2/2 aortic valve replacement x2 * Echo 12/12 showed vegetations * Cardio consult on 12/14 (Dr. Leyva): does not recommend CASPER at this time * Positive blood culture for Strep mitis (12/12/16) * Repeat Blood Cultures 12/14/16 and 12/16/16 showed NO growth at 5 days * Cont zosyn and d/c vanc per Dr. Trevino as stated above; F/U about abx coverage for strep mitis * Central Line removed and replaced in the left femoral vein (01/04) - Unable to get blood return from middle lumen (brown) - suggest line removed and changed * Hx of IV drug use/porcine valve * CT surg consult (Dr. Peralta) - says should be followed up with surgeon who did original AV replacement (Dr. Willson) * See above * F/U Medical records from [facility] [place] - call original surgeon for AV valve replacement and see if he would like to accept the patient at [facility] [place] * CXR: Right-sided central venous catheter extends to the cavoatrial junction. Mild left basilar atelectasis/infiltrate and or small pleural effusion. Median sternotomy wires. Cardiomegaly. Low back pain * lumbar spine XR - No abnormalities seen * flexeril 5mg TID * MRI lumbar spine - No acute fracture, spondylolysis or spondylolisthesis. No evidence of discitis/osteomyelitis. Mild degenerative disc disease at L4-5 with a posterior disc bulge and superimposed right foraminal disc protrusion. Mild right neural foraminal stenosis. No central spinal canal stenosis. Note is made of splenomegaly, perisplenic and splenorenal arises in this patient with known hepatic cirrhosis. * Advised patient to walk around as much as tolerated Hematochezia * Resolved * likely 2/2 hemorrhoid found on SMILEY * Colace TID * Patient will need out patient colonoscopy Left shoulder pain/weakness * 2/2 Hx of fall * Left shoulder XR (12/13) - no acute dislocation or fracture, soft tissues unremarkable Diarrhea * Resolved * Stool Culture/O&P (12/12) - negative for O&P, salmonella, shigella, and campylobacter * Stool negative for leukocytes and occult blood (12/12) * Serum C. diff antigen and toxin negative (12/12) * Stool C diff (Neg) and repeat leukocytes (Neg) * stool culture 12/16 negative * Patient is occasionally constipated - obstruction series ordered 12/28 was negative * Managed on PRN basis History of Seizures * Continue Keppra 500 mg PO BID * Continue Gabapentin 300 mg PO BID History of Depression * Continue Zoloft 50 mg PO daily History of Hepatitis B & C * Monitor LFTs. 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 * On old admission growth factors like Neupogen (Filgrastim) were recommended for low WBC * Heme/Onc consulted (Alyx) - recs against IV iron supplementation at this time until infection resolves, transfusion support prn, plans to review peripheral smear, BM evaluation if counts do not return to baseline * HIV 1&2 Ab screen negative * Stool negative for occult blood Prophylactic Measure * Heparin and GI ppx held due to platelets * SCDs for now * Patient has been getting up every 2 hours and performing 10 laps around the floor * Maalox 30 ml PO once a day PRN indigestion Disposition: Patient on day of Zosyn (end date Jan.23). Blood work on Sat/Mon/Wed schedule. Patient will need referral to Narcotics Anonymous upon discharge. <Dane Machado - Last Filed: 01/09/17 19:59> Objective - Vital Signs/Intake and Output Vital Signs (last 24 hours): Temp Pulse Resp BP Pulse Ox 98.8 F 103 H 20 110/68 97 01/09/17 16:51 01/09/17 16:51 01/09/17 16:51 01/09/17 18:09 01/09/17 16:51 - Medications Medications: Current Medications Al Hydrox/Mg Hydrox/Simethicone (Maalox 30 Ml) 30 ml PO DAILY [facility] Last Admin: 01/09/17 10:02 Dose: 30 ml Cyclobenzaprine HCl (Flexeril) 5 mg PO Q8H PRN PRN Reason: Muscle spasm Last Admin: 01/09/17 15:13 Dose: 5 mg Dicyclomine HCl (Bentyl) 20 mg PO Q8 PRN PRN Reason: ABDOMINAL PAIN Last Admin: 12/29/16 09:39 Dose: 20 mg Docusate Sodium (Colace) 100 mg PO TID [facility] Last Admin: 01/09/17 18:10 Dose: Not Given Gabapentin (Neurontin) 300 mg PO BID [facility] Last Admin: 01/09/17 18:09 Dose: 300 mg Hydroxyzine HCl (Atarax) 50 mg PO Q6H PRN PRN Reason: Anxiety Last Admin: 01/08/17 10:33 Dose: 50 mg Piperacillin Sod/Tazobactam Sod (Zosyn 3.375 Gm Iv Premix) 3.375 gm in 50 mls @ 100 mls/hr IVPB Q6 [facility] Stop: 01/24/17 00:00 Last Admin: 01/09/17 18:10 Dose: 100 mls/hr Levetiracetam (Keppra) 500 mg PO BID [facility] Last Admin: 01/09/17 18:09 Dose: 500 mg Metoprolol Tartrate (Lopressor) 25 mg PO BID [facility] Last Admin: 01/09/17 18:09 Dose: 25 mg Ondansetron HCl (Zofran Tab) 4 mg PO Q8 PRN PRN Reason: Nausea/Vomiting Last Admin: 12/27/16 08:21 Dose: 4 mg Saccharomyces Boulardii (Florastor) 250 mg PO BID [facility] Last Admin: 01/09/17 18:09 Dose: 250 mg Sertraline HCl (Zoloft) 50 mg PO DAILY [facility] Last Admin: 01/09/17 10:02 Dose: 50 mg Trazodone HCl (Desyrel) 100 mg PO HS [facility] Last Admin: 01/08/17 23:07 Dose: 100 mg - Labs Labs: 01/07/17 07:10 01/07/17 07:10 PT 14.2 SECONDS (9.7-12.2) H 12/12/16 07:08 INR 1.3 12/12/16 07:08 APTT 32 SECONDS (21-34) 12/12/16 07:08 Attending/Attestation - Attestation I have personally seen and examined this patient.: Yes I have fully participated in the care of the patient.: Yes I have reviewed all pertinent clinical information, including history, physical exam and plan: Yes Notes (Text): 01/09/17 19:56 Patient was seen and examined at 8:30 PM 01/09/17 Exam, assessment and plan were thoroughly gone over with the resident. Please follow up repeat Blood Culture 01/08/17 which is negative to date. Please note that the last day of antibiotic is 01/23/17. He is on Day of Zosyn. Dane Machado D.O.
[2017-01-09] MEDS: Piperacill/Tazo 3.375gm in Dex 3.375 GM/50 ML BAG IVPB SCH ×4 (05:18→23:54)
[2017-01-09] MEDS: Aluminum Hydroxide/Magnesium Hydroxide Susp (30 mL) PO SCH (10:02)
[2017-01-09] MEDS: Saccharomyces Boulardi 250 mg Cap PO SCH ×2 (10:02→18:09)
[2017-01-10] MEDS: Piperacill/Tazo 3.375gm in Dex 3.375 GM/50 ML BAG IVPB SCH ×3 (05:30→19:43)
[2017-01-10] MEDS: Saccharomyces Boulardi 250 mg Cap PO SCH ×2 (09:19→18:13)
[2017-01-10] MEDS: Aluminum Hydroxide/Magnesium Hydroxide Susp (30 mL) PO SCH (09:20)
--- NOTE | 2017-01-10 09:53 | CP.PCM.PN ---
Addendum entered and electronically signed by Meli Foster DO 01/10/17 16:15: f/u C diff toxin, follow up with fecal leucocytes, stool culture Addendum entered and electronically signed by Meli Foster DO 01/10/17 15:42: new blood cx, urine cx, chest XR ordered for new fever. Original Note: <Meli Foster - Last Filed: 01/10/17 15:37> Subjective - Date & Time of Evaluation Date of Evaluation: 01/10/17 Time of Evaluation: 09:50 - Subjective Subjective: Internal Medicine Progress note for Dr. Dc Patient Seen and examined in room. Patient was standing up and walking around. Patient states he is feeling good. no complaints. Patient states he had a fever overnight 101.9 @ 23.37. He took tylenol and has not had another fever since. Patient denies Fever. Admits to waking up with sweat. Denies Nausea, vomiting, shortness of breath, diarrhea, abdominal pain, chest pain. Femoral line was removed at bedside. patient tolerated pain. No bleeding. Pressure Dressing in place. Patient explained he needs a PICC line for antibiotics and vascular access. Patient consented for procedure. Objective - Vital Signs/Intake and Output Vital Signs (last 24 hours): Temp Pulse Resp BP Pulse Ox 98.5 F 103 H 20 122/79 97 01/10/17 07:30 01/10/17 07:54 01/10/17 07:30 01/10/17 09:20 01/10/17 07:30 Intake and Output: 01/10/17 01/10/17 06:59 18:59 Intake Total 600 Output Total 500 Balance 100 - Medications Medications: Current Medications Al Hydrox/Mg Hydrox/Simethicone (Maalox 30 Ml) 30 ml PO DAILY [facility] Last Admin: 01/10/17 09:20 Dose: Not Given Cyclobenzaprine HCl (Flexeril) 5 mg PO Q8H PRN PRN Reason: Muscle spasm Last Admin: 01/10/17 08:32 Dose: 5 mg Dicyclomine HCl (Bentyl) 20 mg PO Q8 PRN PRN Reason: ABDOMINAL PAIN Last Admin: 12/29/16 09:39 Dose: 20 mg Docusate Sodium (Colace) 100 mg PO TID [facility] Last Admin: 01/10/17 09:20 Dose: Not Given Gabapentin (Neurontin) 300 mg PO BID [facility] Last Admin: 01/10/17 09:19 Dose: 300 mg Hydroxyzine HCl (Atarax) 50 mg PO Q6H PRN PRN Reason: Anxiety Last Admin: 01/08/17 10:33 Dose: 50 mg Piperacillin Sod/Tazobactam Sod (Zosyn 3.375 Gm Iv Premix) 3.375 gm in 50 mls @ 100 mls/hr IVPB Q6 [facility] Stop: 01/24/17 00:00 Last Admin: 01/10/17 05:30 Dose: 100 mls/hr Levetiracetam (Keppra) 500 mg PO BID [facility] Last Admin: 01/10/17 09:19 Dose: 500 mg Metoprolol Tartrate (Lopressor) 25 mg PO BID [facility] Last Admin: 01/10/17 09:20 Dose: 25 mg Ondansetron HCl (Zofran Tab) 4 mg PO Q8 PRN PRN Reason: Nausea/Vomiting Last Admin: 12/27/16 08:21 Dose: 4 mg Saccharomyces Boulardii (Florastor) 250 mg PO BID [facility] Last Admin: 01/10/17 09:19 Dose: 250 mg Sertraline HCl (Zoloft) 50 mg PO DAILY [facility] Last Admin: 01/10/17 09:19 Dose: 50 mg Trazodone HCl (Desyrel) 100 mg PO HS [facility] Last Admin: 01/09/17 23:03 Dose: 100 mg - Labs Labs: 01/07/17 07:10 01/07/17 07:10 PT 14.2 SECONDS (9.7-12.2) H 12/12/16 07:08 INR 1.3 12/12/16 07:08 APTT 32 SECONDS (21-34) 12/12/16 07:08 - Constitutional Appears: Unkempt, Chronically Ill - Head Exam Head Exam: NORMAL INSPECTION - Eye Exam Eye Exam: EOMI, Normal appearance - ENT Exam ENT Exam: Mucous Membranes Moist - Neck Exam Neck Exam: Full ROM, Normal Inspection - Respiratory Exam Respiratory Exam: Clear to Ausculation Bilateral, NORMAL BREATHING PATTERN. absent: Accessory Muscle Use, Respiratory Distress - Cardiovascular Exam Cardiovascular Exam: REGULAR RHYTHM, +S1, +S2 - GI/Abdominal Exam GI & Abdominal Exam: Distended, Soft. absent: Tenderness - Extremities Exam Extremities Exam: Full ROM. absent: Pedal Edema Additional comments: Left Femoral Line removed. no hematoma, no induration, no abnormal drainage Assessment and Plan - Assessment and Plan (Free Text) Assessment: Hypokalemia, repleted Bacteremia Imaging 01/10: CXR: f/u 12/12 CXR: heterogenous infiltrate at inferior Right and Mid/inferior left lung zones vs atelectasis with likely small left pleural effusion and Right central venous line terminating at the right atrium 12/13 CXR: Right IJ central venous line with tip in the SVC after adjustment and right lower lobe opacity with improvement 12/12 Echo: Mobile density seen with high velocities across AV highly suspicious for AV endocarditis, transmitral doppler flow pattern is grade 1 (abnormal relaxation pattern), LV and RV systolic function normal, EF = 60-65% Cultures: 12/12 Blood Cx: Gram positive cocci in changes - Strep mitis 12/12 Urine Cx: no growth Zosyn 3.375 gm Q6H, 12/14 Vanc 1 gm Q12H discontinued per ID Consult: Dr. Trevino Tylenol 650 mg PO Q6 prn fever. Due to history of hepatitis, monitor LFTs, consider changing medication * Patient seen at [facility] in 09/2016. Patient had TTE at that time which did NOT show vegetations on valve. Patient was also seen by psychiatry at that time as well as general surgery for abscess I&D. Will attempt to obtain patient's March [facility] medical records with information regarding valve surgery * Dr. Willson was contacted and agreed to see the patient on consult as long as Dr. Rushing (cardiology) accepts the transfer under his care * Dr. Rusihng (who originally cared for the patient at [facility]) did not return any of our calls so the patient will stay here for the remainder of his antibiotic treatment. * If not accepted, patient will need at least 6 weeks of antibiotics here - Patient on Zosyn until Jan.23 * Blood work to be changed to Sat/Mon/Wed schedule Systolic ejection murmur * Likely 2/2 aortic valve replacement x2 * Echo 12/12 showed vegetations * Cardio consult on 12/14 (Dr. Leyva): does not recommend CASPER at this time * Positive blood culture for Strep mitis (12/12/16) * Repeat Blood Cultures 12/14/16 and 12/16/16 showed NO growth at 5 days * Cont zosyn and d/c vanc per Dr. Trevino as stated above; F/U about abx coverage for strep mitis * Central Line removed and replaced in the left femoral vein (01/04) - Unable to get blood return from middle lumen (brown) - suggest line removed and changed * Hx of IV drug use/porcine valve * CT surg consult (Dr. Peralta) - says should be followed up with surgeon who did original AV replacement (Dr. Willson) * See above * F/U Medical records from [facility] - call original surgeon for AV valve replacement and see if he would like to accept the patient at [facility] * CXR: Right-sided central venous catheter extends to the cavoatrial junction. Mild left basilar atelectasis/infiltrate and or small pleural effusion. Median sternotomy wires. Cardiomegaly. Low back pain * lumbar spine XR - No abnormalities seen * flexeril 5mg TID * MRI lumbar spine - No acute fracture, spondylolysis or spondylolisthesis. No evidence of discitis/osteomyelitis. Mild degenerative disc disease at L4-5 with a posterior disc bulge and superimposed right foraminal disc protrusion. Mild right neural foraminal stenosis. No central spinal canal stenosis. Note is made of splenomegaly, perisplenic and splenorenal arises in this patient with known hepatic cirrhosis. * Advised patient to walk around as much as tolerated Hematochezia * Resolved * likely 2/2 hemorrhoid found on SMILEY * Colace TID * Patient will need out patient colonoscopy Left shoulder pain/weakness * 2/2 Hx of fall * Left shoulder XR (12/13) - no acute dislocation or fracture, soft tissues unremarkable Diarrhea * Resolved * Stool Culture/O&P (12/12) - negative for O&P, salmonella, shigella, and campylobacter * Stool negative for leukocytes and occult blood (12/12) * Serum C. diff antigen and toxin negative (12/12) * Stool C diff (Neg) and repeat leukocytes (Neg) * stool culture 12/16 negative * Patient is occasionally constipated - obstruction series ordered 12/28 was negative * Managed on PRN basis History of Seizures * Continue Keppra 500 mg PO BID * Continue Gabapentin 300 mg PO BID History of Depression * Continue Zoloft 50 mg PO daily History of Hepatitis B & C * Monitor LFTs. 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 * On old admission growth factors like Neupogen (Filgrastim) were recommended for low WBC * Heme/Onc consulted ([facility]) - recs against IV iron supplementation at this time until infection resolves, transfusion support prn, plans to review peripheral smear, BM evaluation if counts do not return to baseline * HIV 1&2 Ab screen negative * Stool negative for occult blood Prophylactic Measure * Heparin and GI ppx held due to platelets * SCDs for now * Patient has been getting up every 2 hours and performing 10 laps around the floor * Maalox 30 ml PO once a day PRN indigestion Disposition: Patient on day of Zosyn (end date Jan.23). Blood work on Sat/Mon/Wed schedule. Patient will need referral to Narcotics Anonymous upon discharge. <Chichi Dc V - Last Filed: 01/11/17 22:51> Objective - Vital Signs/Intake and Output Vital Signs (last 24 hours): Temp Pulse Resp BP Pulse Ox 98.3 F 90 18 105/64 97 01/11/17 15:36 01/11/17 15:36 01/11/17 15:36 01/11/17 17:49 01/11/17 15:36 Intake and Output: 01/11/17 01/12/17 18:59 06:59 Intake Total 450 Balance 450 - Medications Medications: Current Medications Amoxicillin/Clavulanate Potassium (Augmentin 875 Mg-125 Mg Tab) 1 tab PO Q12H [facility] Last Admin: 01/11/17 17:52 Dose: 1 tab Cyclobenzaprine HCl (Flexeril) 5 mg PO Q8H PRN PRN Reason: Muscle spasm Last Admin: 01/11/17 17:52 Dose: 5 mg Dicyclomine HCl (Bentyl) 20 mg PO Q8 PRN PRN Reason: ABDOMINAL PAIN Gabapentin (Neurontin) 300 mg PO BID [facility] Last Admin: 01/11/17 17:48 Dose: 300 mg Hydroxyzine HCl (Atarax) 50 mg PO Q6H PRN PRN Reason: Anxiety Last Admin: 01/11/17 22:31 Dose: 50 mg Piperacillin Sod/Tazobactam Sod (Zosyn 3.375 Gm Iv Premix) 3.375 gm in 50 mls @ 100 mls/hr IVPB Q8H [facility] Last Admin: 01/11/17 10:13 Dose: 100 mls/hr Levetiracetam (Keppra) 500 mg PO BID [facility] Last Admin: 01/11/17 17:48 Dose: 500 mg Metoprolol Tartrate (Lopressor) 25 mg PO BID [facility] Last Admin: 01/11/17 17:49 Dose: 25 mg Ondansetron HCl (Zofran Tab) 4 mg PO Q8 PRN PRN Reason: Nausea/Vomiting Saccharomyces Boulardii (Florastor) 250 mg PO BID [facility] Last Admin: 01/11/17 17:54 Dose: 250 mg Sertraline HCl (Zoloft) 50 mg PO DAILY [facility] Last Admin: 01/11/17 10:13 Dose: 50 mg Trazodone HCl (Desyrel) 100 mg PO HS [facility] Last Admin: 01/11/17 22:29 Dose: 100 mg - Labs Labs: 01/10/17 12:15 01/10/17 12:15 PT 14.2 SECONDS (9.7-12.2) H 12/12/16 07:08 INR 1.3 12/12/16 07:08 APTT 32 SECONDS (21-34) 12/12/16 07:08 Attending/Attestation - Attestation I have personally seen and examined this patient.: Yes I have fully participated in the care of the patient.: Yes I have reviewed all pertinent clinical information, including history, physical exam and plan: Yes Notes (Text): This is late computer entry for 01/10/17. Patient seen, examined and case discussed with day-time resident Patient had a new fever, Tmax: 101.9F. Repeat blood urine and stool studies and Cdif. Patient reports had loose stool. Patient had femoral line recently placed- ->removed to rule out line potential source of infection-->culture of femoral line taken and sent Ordered for PICC line-->PICC line RnBecky is aware of consult. Blood cultures (01/10): pending Stool O&P (01/10):pending C. dif negative. Pending femoral tip culture removed on 01/10-->f/u culture Patient to continue IV abx for 6 weeks (end date 01/23/17) when IV access resumed Will space out patient's blood work to 3x/week instead of daily blood work. Assessment/Plan 1) Sepsis * Criteria: WBC<4; Temp: 104 F; positive blood cultures; Lactate: 1.2 on admission * Infectious Disease (Dr. Trevino) on board * Zosyn 3.375 gm Q6H (active since 12/12/16)-->patient to complete 6 weeks of IV Abx on January; off IV abx until PICC line can be placed * Echocardiogram (12/14/16): left ventricle systolic function is normal; EF: 60- 65%, Transmital doppler flow pattern is Grade I abnormal relaxation pattern. Right ventricular systolic function is normal. Aortic valve bioprosthetic. Mobile density seen with high velocities across Aortic valve highly suspicious for aortic valve endocarditis. recommended for CASPER * Cardiology (Dr. Leyva)-->no CASPER; patient has endocarditis * Blood culture (12/12/16): Strep mitis X2 * Blood culture (12/14/16): No growth * Blood culture (12/16/16): No growth * Blood culture (01/08/17): no growth after 3 days X2 * Blood culture (01/10/17): pending * Urine culture (12/12/16): no growth * Blood culture (01/10): pending * Urine culture (01/10): pending * Zosyn 3.375 gm Q6H (active since 12/12/16)-->patient to complete 6 weeks of IV Abx on January * Tylenol 650 mg PO Q6 prn fever. Monitor liver function tests in light of hepatitis hx 2) Endocarditis * Infectious Disease (Dr. Trevino) on board-->help appreciated * IV abx for 6 weeks * Cardiology (Dr. Leyva)-->no CASPER; patient has endocarditis * Echocardiogram (12/14/16): left ventricle systolic function is normal; EF: 60- 65%, Transmital doppler flow pattern is Grade I abnormal relaxation pattern. Right ventricular systolic function is normal. Aortic valve bioprosthetic. Mobile density seen with high velocities across Aortic valve highly suspicious for aortic valve endocarditis. recommended for CASPER * IV Abx: Zosyn 3.375 gm Q6H (active since 12/12/16) and Vancomycin discontinued * Blood cultures (12/12/16): Strep mitis X2 * Blood cultures (12/14/16): no growth * Risk factors: +murmur, IV drug use (2 major in Daily's Criteria) * Chest Xray (12/16/16): CXR: Right-sided central venous catheter extends to the cavoatrial junction. Mild left basilar atelectasis/infiltrate and or small pleural effusion. Median sternotomy wires. Cardiomegaly. 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 Mild degenerative disc disease at L4-5 with a posterior disc bulge and superimposed right foraminal disc protrusion. Mild right neural foraminal stenosis. No central spinal canal stenosis. Note is made of splenomegaly, perisplenic and splenorenal arises in this patient with known hepatic cirrhosis. * Flexeril 5mg PO TID prn muscle spasm 6) Diarrhea * Resolved * Stool culture/O&P (12/12): negative for O&P, salmonella, shigella, and campylobacter * Stool negative for leukocytes and occult blood * Serum C. Diff antigen and toxin: negative 7) Constipation * Resolved * Obstructive series (12/28/16): moderate constipation * Had BM following obstructive series. * Start Colace 100mg PO bid 8) History of Seizures * Continue Keppra 500 mg PO BID * Continue Gabapentin 300 mg PO BID 9) History of Depression * Continue Zoloft 50 mg PO daily 9) History of Hepatitis B & C * Monitor LFTs. Currently WNL 10) Pancytopenia * Heme-Onc (Dr. 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 On old admission growth factors like Neupogen (Filgrastim) were recommended for low WBC. * Monitor H/H and platelets 11) Prophylactic Measure * Heparin and GI ppx held due thrombocytopenia * SCDs * Florastor 250mg PO bid Disposition: Patient complete 6 weeks of IV abx. Awaiting PICC line placement. Patient w/o IV access. Femoral line removed in light of Tmax: 101.9F. When IV access resumed, will resume IV abx. End date: 01/23/17
--- NOTE | 2017-01-10 11:24 | CP.PCM.PN ---
Subjective - Date & Time of Evaluation Date of Evaluation: 01/10/17 Time of Evaluation: 10:00 - Subjective Subjective: iv rx in progress needs to complete 6 weeks iv rx Objective - Vital Signs/Intake and Output Vital Signs (last 24 hours): Temp Pulse Resp BP Pulse Ox 98.5 F 103 H 20 122/79 97 01/10/17 07:30 01/10/17 07:54 01/10/17 07:30 01/10/17 09:20 01/10/17 07:30 Intake and Output: 01/10/17 01/10/17 06:59 18:59 Intake Total 600 Output Total 500 Balance 100 - Medications Medications: Current Medications Al Hydrox/Mg Hydrox/Simethicone (Maalox 30 Ml) 30 ml PO DAILY [facility] Last Admin: 01/10/17 09:20 Dose: Not Given Cyclobenzaprine HCl (Flexeril) 5 mg PO Q8H PRN PRN Reason: Muscle spasm Last Admin: 01/10/17 08:32 Dose: 5 mg Dicyclomine HCl (Bentyl) 20 mg PO Q8 PRN PRN Reason: ABDOMINAL PAIN Last Admin: 12/29/16 09:39 Dose: 20 mg Docusate Sodium (Colace) 100 mg PO TID [facility] Last Admin: 01/10/17 09:20 Dose: Not Given Gabapentin (Neurontin) 300 mg PO BID [facility] Last Admin: 01/10/17 09:19 Dose: 300 mg Hydroxyzine HCl (Atarax) 50 mg PO Q6H PRN PRN Reason: Anxiety Last Admin: 01/08/17 10:33 Dose: 50 mg Piperacillin Sod/Tazobactam Sod (Zosyn 3.375 Gm Iv Premix) 3.375 gm in 50 mls @ 100 mls/hr IVPB Q6 [facility] Stop: 01/24/17 00:00 Last Admin: 01/10/17 05:30 Dose: 100 mls/hr Levetiracetam (Keppra) 500 mg PO BID [facility] Last Admin: 01/10/17 09:19 Dose: 500 mg Metoprolol Tartrate (Lopressor) 25 mg PO BID [facility] Last Admin: 01/10/17 09:20 Dose: 25 mg Ondansetron HCl (Zofran Tab) 4 mg PO Q8 PRN PRN Reason: Nausea/Vomiting Last Admin: 12/27/16 08:21 Dose: 4 mg Saccharomyces Boulardii (Florastor) 250 mg PO BID [facility] Last Admin: 01/10/17 09:19 Dose: 250 mg Sertraline HCl (Zoloft) 50 mg PO DAILY [facility] Last Admin: 01/10/17 09:19 Dose: 50 mg Trazodone HCl (Desyrel) 100 mg PO [facility] Last Admin: 01/09/17 23:03 Dose: 100 mg - Labs Labs: 01/07/17 07:10 01/07/17 07:10 PT 14.2 SECONDS (9.7-12.2) H 12/12/16 07:08 INR 1.3 12/12/16 07:08 APTT 32 SECONDS (21-34) 12/12/16 07:08 Assessment and Plan (1) Schizoaffective disorder Status: Acute (2) Alcohol abuse Status: Acute (3) Bipolar 1 disorder, depressed Status: Acute (4) Leucopenia Status: Acute (5) Pancytopenia Status: Acute (6) S/P aortic valve replacement Status: Acute
[2017-01-10 12:21] LABS: BASO % 0.3 % (0.0-2.0); EOS % 1.1 % (0.0-4.0); HEMATOCRIT 29.9 % (35.0-51.0); LYMPH # 0.5 K/uL (1.0-4.3); LYMPH % 12.3 % (20.0-40.0); MEAN CELL VOLUME 78.3 fL (80.0-94.0); MEAN CORPUSCULAR HEMOGLOBIN 25.8 pg (27.0-31.0); MEAN PLATELET VOLUME 7.7 fL (7.2-11.7); MONO # 0.4 K/uL (0.0-0.8); MONO % 9.4 % (0.0-10.0); RED CELL DISTRIBUTION WIDTH 17.8 % (11.5-14.5); WHITE BLOOD COUNT 4.2 K/uL (4.8-10.8)
[2017-01-10 12:28] LABS: RBC URINE 7 /hpf (0-3); URINE BILIRUBIN NEGATIVE (NEGATIVE); URINE BLOOD 1+ (NEGATIVE); URINE COLOR Yellow (YELLOW); URINE GLUCOSE (UA) NORMAL (Normal); URINE KETONE NEGATIVE (NEGATIVE); URINE LEUKOCYTE ESTERASE NEG Leu/uL (Negative); URINE PROTEIN NEGATIVE (NEGATIVE); URINE URIC ACID CRYSTALS OCC /hpf (<OCC); URINE UROBILINOGEN NORMAL mg/dL (0.2-1.0); WBC URINE 3 /hpf (0-5)
[2017-01-10 12:40] LABS: CHLORIDE 104 mmol/L (98-107); POTASSIUM 3.4 mmol/L (3.6-5.2); SODIUM 139 mmol/L (132-148)
[2017-01-10 12:42] LABS: BILIRUBIN,TOTAL 0.6 mg/dL (0.2-1.3); GFR AFRICAN-AMERICAN > 60
[2017-01-10 12:43] LABS: ALKALINE PHOSPHATASE 68 U/L (38-126); ALT/SGPT 44 U/L (21-72); AST/SGOT 32 U/L (17-59); BLOOD UREA NITROGEN 14 mg/dL (9-20); CARBON DIOXIDE 23 mmol/L (22-30); GLUCOSE,RANDOM 114 mg/dL (75-110); PHOSPHOROUS 2.5 mg/dL (2.5-4.5); TOTAL PROTEIN 6.7 g/dL (6.3-8.3)
[2017-01-10 12:44] LABS: CALCIUM 8.4 mg/dl (8.6-10.4); MAGNESIUM 1.6 mg/dL (1.6-2.3)
[2017-01-10] MEDS ORDERED: Potassium Chloride 20 mEq ER Tab PO ONE (13:13)
[2017-01-10 17:28] LABS: C DIFF TOXIN A B NEGATIVE (NEGATIVE)
[2017-01-10 19:28] LABS: FECAL LEUKOCYTES NEGATIVE (NEGATIVE)
--- NOTE | 2017-01-10 19:56 | US ---
EXAM: US Abdomen Complete EXAM DATE/TIME: Exam ordered 01/10/2017 3:38 PM CLINICAL HISTORY: 46 years old, male; Abnormal findings; Abnormal lab test; Abnormal function test of other organs/systems; Additional info: Lfts, history of hepatitis TECHNIQUE: Real-time ultrasound of the abdomen (complete) with image documentation. COMPARISON: No relevant prior studies available. FINDINGS: Liver: The liver is heterogeneous in echotexture and nodular in contour. The liver measures 18 cm in craniocaudal span. There is normal blood flow direction the main portal vein. There is normal flow direction the main portal vein. Phasic flow is noted within the hepatic veins. Gallbladder: The gallbladder is contracted. No gallstones. Common bile duct: The common bile duct measures 4 mm. No stones. No dilation. Pancreas: The pancreatic head and neck and body are normal. Details not well seen. Kidneys: Right kidney measures 13.1 x 5.8 x 5.3 cm. Varices are noted the anterior to the right renal hilum. The left kidney measures 12.5 x 5.3 cm. A 4 mm echogenic non-shadowing focus is noted in the lower pole the left kidney. Spleen: Perisplenic varices are noted. The spleen measures 19.6 cm in craniocaudal span. Aorta: Unremarkable. No aneurysm. Inferior vena cava: Unremarkable. IMPRESSION: 1. Cirrhosis with splenomegaly and varices. 2. 4 mm echogenic focus noted within the lower pole left kidney. This could represent a small island of fat or nonobstructing calcification..
[2017-01-11] MEDS: Piperacill/Tazo 3.375gm in Dex 3.375 GM/50 ML BAG IVPB SCH ×3 (00:02→10:13)
--- NOTE | 2017-01-11 06:14 | CP.PCM.PN ---
Addendum entered and electronically signed by Meli Foster DO 01/11/17 16:14: augmentin 875/125 POBID until PICC line in place hold zosyn if IV access cannot be obtained. Original Note: <Meli Foster - Last Filed: 01/11/17 15:44> Subjective - Date & Time of Evaluation Date of Evaluation: 01/11/17 Time of Evaluation: 06:14 - Subjective Subjective: Internal medicine progress note for Dr. Dc Patient seen and examined at bedside. No acute events overnight. Patient denies Fever, chills, nausea, vomiting, admitted to left groin pain overnight, was given toradol. Patient still has pain, no hematoma was found. Objective - Vital Signs/Intake and Output Vital Signs (last 24 hours): Temp Pulse Resp BP Pulse Ox 97.9 F 98 H 20 101/61 97 01/10/17 23:35 01/11/17 00:00 01/10/17 23:35 01/10/17 23:35 01/10/17 23:35 Intake and Output: 01/10/17 01/11/17 18:59 06:59 Intake Total 555 400 Output Total 200 600 Balance 355 -200 - Medications Medications: Current Medications Cyclobenzaprine HCl (Flexeril) 5 mg PO Q8H PRN PRN Reason: Muscle spasm Last Admin: 01/10/17 18:31 Dose: 5 mg Dicyclomine HCl (Bentyl) 20 mg PO Q8 PRN PRN Reason: ABDOMINAL PAIN Last Admin: 12/29/16 09:39 Dose: 20 mg Gabapentin (Neurontin) 300 mg PO BID [facility] Last Admin: 01/10/17 18:13 Dose: 300 mg Hydroxyzine HCl (Atarax) 50 mg PO Q6H PRN PRN Reason: Anxiety Last Admin: 01/08/17 10:33 Dose: 50 mg Piperacillin Sod/Tazobactam Sod (Zosyn 3.375 Gm Iv Premix) 3.375 gm in 50 mls @ 100 mls/hr IVPB Q6 [facility] Stop: 01/24/17 00:00 Last Admin: 01/11/17 05:38 Dose: 100 mls/hr Levetiracetam (Keppra) 500 mg PO BID [facility] Last Admin: 01/10/17 18:13 Dose: 500 mg Metoprolol Tartrate (Lopressor) 25 mg PO BID [facility] Last Admin: 01/10/17 18:13 Dose: 25 mg Ondansetron HCl (Zofran Tab) 4 mg PO Q8 PRN PRN Reason: Nausea/Vomiting Last Admin: 12/27/16 08:21 Dose: 4 mg Saccharomyces Boulardii (Florastor) 250 mg PO BID [facility] Last Admin: 01/10/17 18:13 Dose: 250 mg Sertraline HCl (Zoloft) 50 mg PO DAILY [facility] Last Admin: 01/10/17 09:19 Dose: 50 mg Trazodone HCl (Desyrel) 100 mg PO HS [facility] Last Admin: 01/10/17 22:53 Dose: 100 mg - Labs Labs: 01/10/17 12:15 01/10/17 12:15 PT 14.2 SECONDS (9.7-12.2) H 12/12/16 07:08 INR 1.3 12/12/16 07:08 APTT 32 SECONDS (21-34) 12/12/16 07:08 - Constitutional Appears: Non-toxic - Head Exam Head Exam: NORMAL INSPECTION - Eye Exam Eye Exam: EOMI, Normal appearance - ENT Exam ENT Exam: Mucous Membranes Moist - Respiratory Exam Respiratory Exam: NORMAL BREATHING PATTERN. absent: Accessory Muscle Use, Respiratory Distress - Cardiovascular Exam Cardiovascular Exam: REGULAR RHYTHM, +S1, +S2. absent: Bradycardia, Tachycardia - GI/Abdominal Exam GI & Abdominal Exam: Soft. absent: Distended, Guarding, Rigid, Tenderness - Extremities Exam Extremities Exam: Full ROM. absent: Pedal Edema - Neurological Exam Neurological Exam: Alert, Awake, Oriented x3 - Psychiatric Exam Psychiatric exam: Normal Affect, Normal Mood. absent: Depressed - Skin Skin Exam: Cyanosis, Dry, Intact, Warm Assessment and Plan - Assessment and Plan (Free Text) Assessment: Hypokalemia, repleted Bacteremia Imaging 01/10: CXR: mild venous congestion, mild right hilar prominence. s/p median sternotomy 12/12 CXR: heterogenous infiltrate at inferior Right and Mid/inferior left lung zones vs atelectasis with likely small left pleural effusion and Right central venous line terminating at the right atrium 12/13 CXR: Right IJ central venous line with tip in the SVC after adjustment and right lower lobe opacity with improvement 12/12 Echo: Mobile density seen with high velocities across AV highly suspicious for AV endocarditis, transmitral doppler flow pattern is grade 1 (abnormal relaxation pattern), LV and RV systolic function normal, EF = 60-65% Cultures: 12/12 Blood Cx: Gram positive cocci in changes - Strep mitis 12/12 Urine Cx: no growth Zosyn 3.375 gm Q6H, 12/14 Vanc 1 gm Q12H discontinued per ID Consult: Dr. Trevino Tylenol 650 mg PO Q6 prn fever. Due to history of hepatitis, monitor LFTs, consider changing medication * [place] [facility] [place] Patient had TTE at that time which did NOT show vegetations on valve. Patient was also seen by psychiatry at that time as well as general surgery for abscess I&D. Will attempt to obtain patient[place] [facility] [place] with information regarding valve surgery * Dr. Willson was contacted and agreed to see the patient on consult as long as Dr. Rushing (cardiology) accepts the transfer under his care * Dr. Rushing (who originally cared for the [place] [facility] did not return any of our calls so the patient will stay here for the remainder of his antibiotic treatment. * If not accepted, patient will need at least 6 weeks of antibiotics here - Patient on Zosyn until Jan.23 * Blood work to be changed to Sat/Mon/Wed schedule Systolic ejection murmur * Likely 2/2 aortic valve replacement x2 * Echo 12/12 showed vegetations * Cardio consult on 12/14 (Dr. Leyva): does not recommend CASPER at this time * Positive blood culture for Strep mitis (12/12/16) * Repeat Blood Cultures 12/14/16 and 12/16/16 showed NO growth at 5 days * Cont zosyn and d/c vanc per Dr. Trevino as stated above; F/U about abx coverage for strep mitis * Central Line removed and replaced in the left femoral vein (01/04) - Unable to get blood return from middle lumen (brown) - suggest line removed and changed * Hx of IV drug use/porcine valve * CT surg consult (Dr. Peralta) - says should be followed up with surgeon who did original AV replacement (Dr. Willson) * See above * F/[place] [facility] [place] call original surgeon for AV valve replacement and see if he would like to accept the patient [place] [facility] * CXR: Right-sided central venous catheter extends to the cavoatrial junction. Mild left basilar atelectasis/infiltrate and or small pleural effusion. Median sternotomy wires. Cardiomegaly. Low back pain * lumbar spine XR - No abnormalities seen * flexeril 5mg TID * MRI lumbar spine - No acute fracture, spondylolysis or spondylolisthesis. No evidence of discitis/osteomyelitis. Mild degenerative disc disease at L4-5 with a posterior disc bulge and superimposed right foraminal disc protrusion. Mild right neural foraminal stenosis. No central spinal canal stenosis. Note is made of splenomegaly, perisplenic and splenorenal arises in this patient with known hepatic cirrhosis. * Advised patient to walk around as much as tolerated Hematochezia * Resolved * likely 2/2 hemorrhoid found on SMILEY * Colace TID * Patient will need out patient colonoscopy Left shoulder pain/weakness * 2/2 Hx of fall * Left shoulder XR (12/13) - no acute dislocation or fracture, soft tissues unremarkable Diarrhea * Resolved * Stool Culture/O&P (12/12) - negative for O&P, salmonella, shigella, and campylobacter * Stool negative for leukocytes and occult blood (12/12) * Serum C. diff antigen and toxin negative (12/12) * Stool C diff (Neg) and repeat leukocytes (Neg) * stool culture 12/16 negative * Patient is occasionally constipated - obstruction series ordered 12/28 was negative * Managed on PRN basis History of Seizures * Continue Keppra 500 mg PO BID * Continue Gabapentin 300 mg PO BID History of Depression * Continue Zoloft 50 mg PO daily History of Hepatitis B & C * Monitor LFTs. 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 * On old admission growth factors like Neupogen (Filgrastim) were recommended for low WBC * Heme/Onc consulted ([facility]) - recs against IV iron supplementation at this time until infection resolves, transfusion support prn, plans to review peripheral smear, BM evaluation if counts do not return to baseline * HIV 1&2 Ab screen negative * Stool negative for occult blood Prophylactic Measure * Heparin and GI ppx held due to platelets * SCDs for now * Patient has been getting up every 2 hours and performing 10 laps around the floor * Maalox 30 ml PO once a day PRN indigestion <Chichi Dc V - Last Filed: 01/11/17 22:41> Objective - Vital Signs/Intake and Output Vital Signs (last 24 hours): Temp Pulse Resp BP Pulse Ox 98.3 F 90 18 105/64 97 01/11/17 15:36 01/11/17 15:36 01/11/17 15:36 01/11/17 17:49 01/11/17 15:36 Intake and Output: 01/11/17 01/12/17 18:59 06:59 Intake Total 450 Balance 450 - Medications Medications: Current Medications Amoxicillin/Clavulanate Potassium (Augmentin 875 Mg-125 Mg Tab) 1 tab PO Q12H [facility] Last Admin: 01/11/17 17:52 Dose: 1 tab Cyclobenzaprine HCl (Flexeril) 5 mg PO Q8H PRN PRN Reason: Muscle spasm Last Admin: 01/11/17 17:52 Dose: 5 mg Dicyclomine HCl (Bentyl) 20 mg PO Q8 PRN PRN Reason: ABDOMINAL PAIN Gabapentin (Neurontin) 300 mg PO BID [facility] Last Admin: 01/11/17 17:48 Dose: 300 mg Hydroxyzine HCl (Atarax) 50 mg PO Q6H PRN PRN Reason: Anxiety Piperacillin Sod/Tazobactam Sod (Zosyn 3.375 Gm Iv Premix) 3.375 gm in 50 mls @ 100 mls/hr IVPB Q8H [facility] Last Admin: 01/11/17 10:13 Dose: 100 mls/hr Levetiracetam (Keppra) 500 mg PO BID [facility] Last Admin: 01/11/17 17:48 Dose: 500 mg Metoprolol Tartrate (Lopressor) 25 mg PO BID [facility] Last Admin: 01/11/17 17:49 Dose: 25 mg Ondansetron HCl (Zofran Tab) 4 mg PO Q8 PRN PRN Reason: Nausea/Vomiting Saccharomyces Boulardii (Florastor) 250 mg PO BID [facility] Last Admin: 01/11/17 17:54 Dose: 250 mg Sertraline HCl (Zoloft) 50 mg PO DAILY [facility] Last Admin: 01/11/17 10:13 Dose: 50 mg Trazodone HCl (Desyrel) 100 mg PO HS [facility] - Labs Labs: 01/10/17 12:15 01/10/17 12:15 PT 14.2 SECONDS (9.7-12.2) H 12/12/16 07:08 INR 1.3 12/12/16 07:08 APTT 32 SECONDS (21-34) 12/12/16 07:08 Attending/Attestation - Attestation I have personally seen and examined this patient.: Yes I have fully participated in the care of the patient.: Yes I have reviewed all pertinent clinical information, including history, physical exam and plan: Yes Notes (Text): Patient seen, examined, and case discussed with day-time resident during rounds. Patient seen this afternoon. Patient is afebrile since 01/09 101.9 F. patient denies acute complaints. Patient does not have IV access. Pending PICC ordered on Tuesday-->will f/u with PICC line nurse tomorrow for the patient. Patient switched to PO Augmentin until IV abx can be resumed Blood cultures (01/10): no growth after 24 hours X2 Stool O&P (01/10): no ova and parasite seen; C. dif negative. Pending femoral tip culture removed on 01/10 Patient to continue IV abx for 6 weeks (end date 01/23/17) Will space out patient's blood work to 3x/week instead of daily blood work. Assessment/Plan 1) Sepsis * Criteria: WBC<4; Temp: 104 F; positive blood cultures; Lactate: 1.2 on admission * Infectious Disease (Dr. Trevino) on board * Zosyn 3.375 gm Q6H (active since 12/12/16)-->patient to complete 6 weeks of IV Abx on January; off IV abx until PICC line can be placed * Echocardiogram (12/14/16): left ventricle systolic function is normal; EF: 60- 65%, Transmital doppler flow pattern is Grade I abnormal relaxation pattern. Right ventricular systolic function is normal. Aortic valve bioprosthetic. Mobile density seen with high velocities across Aortic valve highly suspicious for aortic valve endocarditis. recommended for CASPER * Cardiology (Dr. Leyva)-->no CASPER; patient has endocarditis * Blood culture (12/12/16): Strep mitis X2 * Blood culture (12/14/16): No growth * Blood culture (12/16/16): No growth * Blood culture (01/08/17): no growth after 3 days X2 * Blood culture (01/10/17): no growth after 24 hours X2 * Urine culture (12/12/16): no growth * Blood culture (01/10): no growth after 24hours X2 * Urine culture (01/10): no growth * Zosyn 3.375 gm Q6H (active since 12/12/16)-->patient to complete 6 weeks of IV Abx on January-->Switched to Augmentin PO until IV access is resumed * Tylenol 650 mg PO Q6 prn fever. Monitor liver function tests in light of hepatitis hx 2) Endocarditis * Infectious Disease (Dr. Trevino) on board-->help appreciated * IV abx for 6 weeks * Cardiology (Dr. Leyva)-->no CASPER; patient has endocarditis * Echocardiogram (12/14/16): left ventricle systolic function is normal; EF: 60- 65%, Transmital doppler flow pattern is Grade I abnormal relaxation pattern. Right ventricular systolic function is normal. Aortic valve bioprosthetic. Mobile density seen with high velocities across Aortic valve highly suspicious for aortic valve endocarditis. recommended for CASPER * IV Abx: Zosyn 3.375 gm Q6H (active since 12/12/16) and Vancomycin discontinued * Blood cultures (12/12/16): Strep mitis X2 * Blood cultures (12/14/16): no growth * Risk factors: +murmur, IV drug use (2 major in Daily's Criteria) * Chest Xray (12/16/16): CXR: Right-sided central venous catheter extends to the cavoatrial junction. Mild left basilar atelectasis/infiltrate and or small pleural effusion. Median sternotomy wires. Cardiomegaly. 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 Mild degenerative disc disease at L4-5 with a posterior disc bulge and superimposed right foraminal disc protrusion. Mild right neural foraminal stenosis. No central spinal canal stenosis. Note is made of splenomegaly, perisplenic and splenorenal arises in this patient with known hepatic cirrhosis. * Flexeril 5mg PO TID prn muscle spasm 6) Diarrhea * Resolved * Stool culture/O&P (12/12): negative for O&P, salmonella, shigella, and campylobacter * Stool negative for leukocytes and occult blood * Serum C. Diff antigen and toxin: negative X2 7) Constipation * Resolved * Obstructive series (12/28/16): moderate constipation * Had BM following obstructive series. * Start Colace 100mg PO bid 8) History of Seizures * Continue Keppra 500 mg PO BID * Continue Gabapentin 300 mg PO BID 9) History of Depression * Continue Zoloft 50 mg PO daily 9) History of Hepatitis B & C * Monitor LFTs. Currently WNL 10) Pancytopenia * Heme-Onc (Dr. 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 On old admission growth factors like Neupogen (Filgrastim) were recommended for low WBC. * Monitor H/H and platelets 11) Prophylactic Measure * Heparin and GI ppx held due thrombocytopenia * SCDs * Florastor 250mg PO bid Disposition: Patient complete 6 weeks of IV abx. Awaiting PICC line placement. Patient w/o IV access since Tuesday. Femoral line removed in light of Tmax: 101.9F. When IV access resumed, will resume IV abx. End date: 01/23/17
--- NOTE | 2017-01-11 10:11 | RAD ---
Chest x-ray two views History: Fever. Comparison: None available. Findings: Mild venous congestion. Mild right hilar prominence. Status post median sternotomy. Heart size within normal limits. Degenerative changes in the spine and shoulders. Impression: Mild venous congestion. Mild right hilar prominence. Status post median sternotomy.
[2017-01-11] MEDS: Saccharomyces Boulardi 250 mg Cap PO SCH ×2 (10:16→17:54)
[2017-01-11] MEDS: Amoxicillin-Clav 875-125 mg Tab PO SCH (17:52)
[2017-01-12] MEDS: Amoxicillin-Clav 875-125 mg Tab PO SCH (05:23)
--- NOTE | 2017-01-12 09:55 | RAD ---
HISTORY: verify right PICC COMPARISON: Comparison is made to previous same-day exam FINDINGS: LUNGS: No significant change in the lungs. PLEURA: No significant pleural effusion identified, no pneumothorax apparent. CARDIOVASCULAR: Normal. OSSEOUS STRUCTURES: No significant abnormalities. VISUALIZED UPPER ABDOMEN: Normal. OTHER FINDINGS: Status post right-sided PICC line seen at appropriate position with the tip is at the distal SVC/SVC right atrium junction. IMPRESSION: Appropriate position of the right-sided PICC line as described. Otherwise no interval change.
--- NOTE | 2017-01-12 10:42 | CP.PCM.PN ---
<Meli Foster - Last Filed: 01/12/17 15:38> Subjective - Date & Time of Evaluation Date of Evaluation: 01/12/17 Time of Evaluation: 10:38 - Subjective Subjective: Internal Medicine Progress Note for Dr. Dc Patient seen and examined at bedside. Patient states he is doing well. Patient got a PICC line placed prior to rounding with Dr. Dc. No acute events overnight. Patient states he has no fever, chills, difficulty with bowel movements, or urination problems. Spoke to Dr. Whatley on the phone. Dr. Whatley said patient is okay to discharge home. He said patient will be admitted under assessor at [facility] when admitted. Objective - Vital Signs/Intake and Output Vital Signs (last 24 hours): Temp Pulse Resp BP Pulse Ox 98.7 F 100 H 14 119/80 96 01/12/17 08:53 01/12/17 08:53 01/12/17 08:53 01/12/17 08:53 01/12/17 08:53 Intake and Output: 01/12/17 01/12/17 06:59 18:59 Output Total 200 Balance -200 - Medications Medications: Current Medications Amoxicillin/Clavulanate Potassium (Augmentin 875 Mg-125 Mg Tab) 1 tab PO Q12H [facility] Last Admin: 01/12/17 05:23 Dose: 1 tab Cyclobenzaprine HCl (Flexeril) 5 mg PO Q8H PRN PRN Reason: Muscle spasm Last Admin: 01/12/17 05:22 Dose: 5 mg Dicyclomine HCl (Bentyl) 20 mg PO Q8 PRN PRN Reason: ABDOMINAL PAIN Gabapentin (Neurontin) 300 mg PO BID [facility] Last Admin: 01/11/17 17:48 Dose: 300 mg Hydroxyzine HCl (Atarax) 50 mg PO Q6H PRN PRN Reason: Anxiety Last Admin: 01/11/17 22:31 Dose: 50 mg Piperacillin Sod/Tazobactam Sod (Zosyn 3.375 Gm Iv Premix) 3.375 gm in 50 mls @ 100 mls/hr IVPB Q8H [facility] Last Admin: 01/11/17 10:13 Dose: 100 mls/hr Levetiracetam (Keppra) 500 mg PO BID [facility] Last Admin: 01/11/17 17:48 Dose: 500 mg Metoprolol Tartrate (Lopressor) 25 mg PO BID [facility] Last Admin: 01/11/17 17:49 Dose: 25 mg Ondansetron HCl (Zofran Tab) 4 mg PO Q8 PRN PRN Reason: Nausea/Vomiting Saccharomyces Boulardii (Florastor) 250 mg PO BID [facility] Last Admin: 01/11/17 17:54 Dose: 250 mg Sertraline HCl (Zoloft) 50 mg PO DAILY [facility] Last Admin: 01/11/17 10:13 Dose: 50 mg Trazodone HCl (Desyrel) 100 mg PO HS [facility] Last Admin: 01/11/17 22:29 Dose: 100 mg - Labs Labs: 01/10/17 12:15 01/10/17 12:15 PT 14.2 SECONDS (9.7-12.2) H 12/12/16 07:08 INR 1.3 12/12/16 07:08 APTT 32 SECONDS (21-34) 12/12/16 07:08 - Constitutional Appears: Non-toxic, Chronically Ill - Head Exam Head Exam: NORMAL INSPECTION - Eye Exam Eye Exam: EOMI, Normal appearance - ENT Exam ENT Exam: Mucous Membranes Moist - Neck Exam Neck Exam: Full ROM - Respiratory Exam Respiratory Exam: NORMAL BREATHING PATTERN. absent: Accessory Muscle Use, Respiratory Distress - Cardiovascular Exam Cardiovascular Exam: REGULAR RHYTHM, +S1, +S2. absent: Bradycardia, Tachycardia - GI/Abdominal Exam GI & Abdominal Exam: Soft. absent: Tenderness - Extremities Exam Extremities Exam: Full ROM. absent: Pedal Edema - Neurological Exam Neurological Exam: Alert, Awake, Oriented x3 - Psychiatric Exam Psychiatric exam: Normal Affect, Normal Mood - Skin Skin Exam: Dry, Intact, Normal Color, Warm. absent: Pallor Assessment and Plan - Assessment and Plan (Free Text) Assessment: Assessment: Hypokalemia, repleted Bacteremia Imaging 01/11 CXR: PICC line placement in appropriate position 01/10: CXR: mild venous congestion, mild right hilar prominence. s/p median sternotomy 12/12 CXR: heterogenous infiltrate at inferior Right and Mid/inferior left lung zones vs atelectasis with likely small left pleural effusion and Right central venous line terminating at the right atrium 12/13 CXR: Right IJ central venous line with tip in the SVC after adjustment and right lower lobe opacity with improvement 12/12 Echo: Mobile density seen with high velocities across AV highly suspicious for AV endocarditis, transmitral doppler flow pattern is grade 1 (abnormal relaxation pattern), LV and RV systolic function normal, EF = 60-65% Cultures: 12/12 Blood Cx: Gram positive cocci in changes - Strep mitis 12/12 Urine Cx: no growth Zosyn 3.375 gm Q6H, 12/14 Vanc 1 gm Q12H discontinued per ID Consult: Dr. Trevino Tylenol 650 mg PO Q6 prn fever. Due to history of hepatitis, monitor LFTs, consider changing medication * Patient seen at [facility] in 09/2016. Patient had TTE at that time which did NOT show vegetations on valve. Patient was also seen by psychiatry at that time as well as general surgery for abscess I&D. Will attempt to obtain patient's March [facility] medical records with information regarding valve surgery * Dr. Willson was contacted and agreed to see the patient on consult as long as Dr. Rushing (cardiology) accepts the transfer under his care * Dr. Rushing (who originally cared for the patient at [facility]) did not return any of our calls so the patient will stay here for the remainder of his antibiotic treatment. * If not accepted, patient will need at least 6 weeks of antibiotics here - Patient on Zosyn until Jan.23 * Blood work to be changed to Sat/Mon/Wed schedule Systolic ejection murmur * Likely 2/2 aortic valve replacement x2 * Echo 12/12 showed vegetations * Cardio consult on 12/14 (Dr. Leyva): does not recommend CASPER at this time * Positive blood culture for Strep mitis (12/12/16) * Repeat Blood Cultures 12/14/16 and 12/16/16 showed NO growth at 5 days * Cont zosyn and d/c vanc per Dr. Trevino as stated above; F/U about abx coverage for strep mitis * Central Line removed and replaced in the left femoral vein (01/04) - Unable to get blood return from middle lumen (brown) - suggest line removed and changed * Hx of IV drug use/porcine valve * CT surg consult (Dr. Peralta) - says should be followed up with surgeon who did original AV replacement (Dr. Willson) * See above * F/U Medical records from [facility] - call original surgeon for AV valve replacement and see if he would like to accept the patient at [facility] * CXR: Right-sided central venous catheter extends to the cavoatrial junction. Mild left basilar atelectasis/infiltrate and or small pleural effusion. Median sternotomy wires. Cardiomegaly. Low back pain * lumbar spine XR - No abnormalities seen * flexeril 5mg TID * MRI lumbar spine - No acute fracture, spondylolysis or spondylolisthesis. No evidence of discitis/osteomyelitis. Mild degenerative disc disease at L4-5 with a posterior disc bulge and superimposed right foraminal disc protrusion. Mild right neural foraminal stenosis. No central spinal canal stenosis. Note is made of splenomegaly, perisplenic and splenorenal arises in this patient with known hepatic cirrhosis. * Advised patient to walk around as much as tolerated Hematochezia * Resolved * likely 2/2 hemorrhoid found on SMILEY * Colace TID * Patient will need out patient colonoscopy Left shoulder pain/weakness * 2/2 Hx of fall * Left shoulder XR (12/13) - no acute dislocation or fracture, soft tissues unremarkable Diarrhea * Resolved * Stool Culture/O&P (12/12) - negative for O&P, salmonella, shigella, and campylobacter * Stool negative for leukocytes and occult blood (12/12) * Serum C. diff antigen and toxin negative (12/12) * Stool C diff (Neg) and repeat leukocytes (Neg) * stool culture 12/16 negative * Patient is occasionally constipated - obstruction series ordered 12/28 was negative * Managed on PRN basis History of Seizures * Continue Keppra 500 mg PO BID * Continue Gabapentin 300 mg PO BID History of Depression * Continue Zoloft 50 mg PO daily History of Hepatitis B & C * Monitor LFTs. 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 * On old admission growth factors like Neupogen (Filgrastim) were recommended for low WBC * Heme/Onc consulted ([facility]) - recs against IV iron supplementation at this time until infection resolves, transfusion support prn, plans to review peripheral smear, BM evaluation if counts do not return to baseline * HIV 1&2 Ab screen negative * Stool negative for occult blood Prophylactic Measure * Heparin and GI ppx held due to platelets * SCDs for now * Patient has been getting up every 2 hours and performing 10 laps around the floor * Maalox 30 ml PO once a day PRN indigestion Patient placed back on Zosyn 3.375 gmQ6H due to PICC line placement, to finish antibiotics on January 23, [address] Whatley on the phone. Dr. Whatley said patient is okay to discharge home. He said patient will be admitted under assessor at [facility] when admitted. <Chichi Dc V - Last Filed: 01/12/17 23:53> Objective - Vital Signs/Intake and Output Vital Signs (last 24 hours): Temp Pulse Resp BP Pulse Ox 98.1 F 99 H 18 112/66 95 01/12/17 15:35 01/12/17 15:35 01/12/17 15:35 01/12/17 19:01 01/12/17 15:35 Intake and Output: 01/12/17 01/13/17 18:59 06:59 Intake Total 800 Output Total 800 Balance 0 - Medications Medications: Current Medications Cyclobenzaprine HCl (Flexeril) 5 mg PO Q8H PRN PRN Reason: Muscle spasm Last Admin: 01/12/17 21:21 Dose: 5 mg Dicyclomine HCl (Bentyl) 20 mg PO Q8 PRN PRN Reason: ABDOMINAL PAIN Gabapentin (Neurontin) 300 mg PO BID [facility] Last Admin: 01/12/17 18:59 Dose: 300 mg Hydroxyzine HCl (Atarax) 50 mg PO Q6H PRN PRN Reason: Anxiety Last Admin: 01/12/17 22:52 Dose: 50 mg Piperacillin Sod/Tazobactam Sod (Zosyn 3.375 Gm Iv Premix) 3.375 gm in 50 mls @ 100 mls/hr IVPB Q8H [facility] Last Admin: 01/12/17 18:58 Dose: 100 mls/hr Levetiracetam (Keppra) 500 mg PO BID [facility] Last Admin: 01/12/17 18:25 Dose: 500 mg Metoprolol Tartrate (Lopressor) 25 mg PO BID [facility] Last Admin: 01/12/17 19:01 Dose: 25 mg Ondansetron HCl (Zofran Tab) 4 mg PO Q8 PRN PRN Reason: Nausea/Vomiting Potassium Chloride (K-Dur 20 Meq Er Tab) 20 meq PO DAILY [facility] Saccharomyces Boulardii (Florastor) 250 mg PO BID [facility] Last Admin: 01/12/17 19:02 Dose: 250 mg Sertraline HCl (Zoloft) 50 mg PO DAILY [facility] Last Admin: 01/12/17 11:04 Dose: 50 mg Trazodone HCl (Desyrel) 100 mg PO HS [facility] Last Admin: 01/12/17 22:51 Dose: 100 mg - Labs Labs: 01/12/17 13:56 01/12/17 13:56 PT 14.2 SECONDS (9.7-12.2) H 12/12/16 07:08 INR 1.3 12/12/16 07:08 APTT 32 SECONDS (21-34) 12/12/16 07:08 Attending/Attestation - Attestation I have personally seen and examined this patient.: Yes I have fully participated in the care of the patient.: Yes I have reviewed all pertinent clinical information, including history, physical exam and plan: Yes Notes (Text): Patient seen, examined and case discussed with day-time resident. Patient received PICC line this morning. Patient denies acute complaints. Resident contacted cardiology, Dr Leyva today, patient to finish IV antibiotics therapy and followup at [facility] to be evaluated by thoracic surgery given vegetation on the valve when patient ready to be discharged. Discussed with patient, he swears he will not relapse into drugs again. Femoral tip: negative culture. Urine culture: no growth and Blood cultures: no growth 48 hours X2 Patient to resume IV abx therapy with end date on 01/23/17. Assessment/Plan 1) Sepsis * Criteria: WBC<4; Temp: 104 F; positive blood cultures; Lactate: 1.2 on admission * Infectious Disease (Dr. Trevino) on board * Zosyn 3.375 gm Q6H (active since 12/12/16)-->patient to complete 6 weeks of IV Abx on January; off IV abx until PICC line can be placed * Echocardiogram (12/14/16): left ventricle systolic function is normal; EF: 60- 65%, Transmital doppler flow pattern is Grade I abnormal relaxation pattern. Right ventricular systolic function is normal. Aortic valve bioprosthetic. Mobile density seen with high velocities across Aortic valve highly suspicious for aortic valve endocarditis. recommended for CASPER * Cardiology (Dr. Leyva)-->no CASPER; patient has endocarditis * Blood culture (12/12/16): Strep mitis X2 * Blood culture (12/14/16): No growth * Blood culture (12/16/16): No growth * Blood culture (01/08/17): no growth after 3 days X2 * Blood culture (01/10/17): no growth after 24 hours X2 * Urine culture (12/12/16): no growth * Blood culture (01/10): no growth after 48 hours X2 * Urine culture (01/10): no growth * Femoral tip culture: no growth * Zosyn 3.375 gm Q6H (active since 12/12/16)-->patient to complete 6 weeks of IV Abx on January resumed * s/p PICC on 01/12 * Tylenol 650 mg PO Q6 prn fever. Monitor liver function tests in light of hepatitis hx 2) Endocarditis * Infectious Disease (Dr. Trevino) on board-->help appreciated * IV abx for 6 weeks * Cardiology (Dr. Leyva)-->no CASPER; patient has endocarditis * Echocardiogram (12/14/16): left ventricle systolic function is normal; EF: 60- 65%, Transmital doppler flow pattern is Grade I abnormal relaxation pattern. Right ventricular systolic function is normal. Aortic valve bioprosthetic. Mobile density seen with high velocities across Aortic valve highly suspicious for aortic valve endocarditis. recommended for CASPER * IV Abx: Zosyn 3.375 gm Q6H (active since 12/12/16) and Vancomycin discontinued * Blood cultures (12/12/16): Strep mitis X2 * Blood cultures (12/14/16): no growth * Risk factors: +murmur, IV drug use (2 major in Daily's Criteria) * Chest Xray (12/16/16): CXR: Right-sided central venous catheter extends to the cavoatrial junction. Mild left basilar atelectasis/infiltrate and or small pleural effusion. Median sternotomy wires. Cardiomegaly. 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 Mild degenerative disc disease at L4-5 with a posterior disc bulge and superimposed right foraminal disc protrusion. Mild right neural foraminal stenosis. No central spinal canal stenosis. Note is made of splenomegaly, perisplenic and splenorenal arises in this patient with known hepatic cirrhosis. * Flexeril 5mg PO TID prn muscle spasm 6) Diarrhea * Resolved * Stool culture/O&P (12/12): negative for O&P, salmonella, shigella, and campylobacter * Stool negative for leukocytes and occult blood * Serum C. Diff antigen and toxin: negative X2 7) Constipation * Resolved * Obstructive series (12/28/16): moderate constipation * Had BM following obstructive series. * Start Colace 100mg PO bid 8) History of Seizures * Continue Keppra 500 mg PO BID * Continue Gabapentin 300 mg PO BID 9) History of Depression * Continue Zoloft 50 mg PO daily 9) History of Hepatitis B & C * Monitor LFTs. Currently WNL 10) Pancytopenia * Heme-Onc (Dr. 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 On old admission growth factors like Neupogen (Filgrastim) were recommended for low WBC. * Monitor H/H and platelets 11) Prophylactic Measure * Heparin and GI ppx held due thrombocytopenia * SCDs * Florastor 250mg PO bid Disposition: Patient complete 6 weeks of IV abx. s/p PICC line placement today. Repeat cultures negative. Patient to complete IV abx on 01/23/17 and to follow- up with cardiology/thoracic at [facility] upon discharge.
[2017-01-12] MEDS: Saccharomyces Boulardi 250 mg Cap PO SCH ×2 (11:04→19:02)
[2017-01-12 13:59] LABS: BASO % 0.6 % (0.0-2.0); EOS % 0.8 % (0.0-4.0); LYMPH # 0.6 K/uL (1.0-4.3); LYMPH % 15.1 % (20.0-40.0); MEAN CORPUSCULAR HEMOGLOBIN 25.5 pg (27.0-31.0); MEAN CORPUSCULAR HGB CONC 32.7 g/dL (33.0-37.0); MEAN PLATELET VOLUME 7.6 fL (7.2-11.7); MONO # 0.2 K/uL (0.0-0.8); MONO % 6.2 % (0.0-10.0); RED CELL DISTRIBUTION WIDTH 17.9 % (11.5-14.5); WHITE BLOOD COUNT 3.6 K/uL (4.8-10.8)
[2017-01-12 14:07] LABS: CHLORIDE 100 mmol/L (98-107); SODIUM 139 mmol/L (132-148)
[2017-01-12 14:08] LABS: POTASSIUM 3.5 mmol/L (3.6-5.2)
[2017-01-12 14:09] LABS: GFR AFRICAN-AMERICAN > 60
[2017-01-12 14:10] LABS: ALKALINE PHOSPHATASE 74 U/L (38-126); ALT/SGPT 48 U/L (21-72); AST/SGOT 32 U/L (17-59); BILIRUBIN,TOTAL 0.5 mg/dL (0.2-1.3); BLOOD UREA NITROGEN 15 mg/dL (9-20); CARBON DIOXIDE 23 mmol/L (22-30); GLUCOSE,RANDOM 106 mg/dL (75-110); PHOSPHOROUS 3.4 mg/dL (2.5-4.5); TOTAL PROTEIN 6.6 g/dL (6.3-8.3)
[2017-01-12 14:11] LABS: CALCIUM 8.7 mg/dl (8.6-10.4); MAGNESIUM 1.4 mg/dL (1.6-2.3)
[2017-01-12] MEDS: Piperacill/Tazo 3.375gm in Dex 3.375 GM/50 ML BAG IVPB SCH (18:58)
[2017-01-12] MEDS ORDERED: Magnesium Sulfate 1 gm in D5W 1 GM/100 ML BAG IVPB ONE (20:01)
[2017-01-13] MEDS: Piperacill/Tazo 3.375gm in Dex 3.375 GM/50 ML BAG IVPB SCH ×3 (01:56→17:32)
[2017-01-13] MEDS: Potassium Chloride 20 mEq ER Tab PO SCH (10:25)
[2017-01-13] MEDS: Saccharomyces Boulardi 250 mg Cap PO SCH ×2 (10:26→17:31)
[2017-01-13] MEDS: Magnesium Sulfate 1 gm in D5W 1 GM/100 ML BAG IVPB SCH ×4 (10:41→11:45)
--- NOTE | 2017-01-13 13:54 | CP.PCM.PN ---
Addendum entered and electronically signed by Meli Foster DO 01/13/17 13:56: Hypokalemia, repleted Bacteremia Imaging 01/11 CXR: PICC line placement in appropriate position 01/10: CXR: mild venous congestion, mild right hilar prominence. s/p median sternotomy 12/12 CXR: heterogenous infiltrate at inferior Right and Mid/inferior left lung zones vs atelectasis with likely small left pleural effusion and Right central venous line terminating at the right atrium 12/13 CXR: Right IJ central venous line with tip in the SVC after adjustment and right lower lobe opacity with improvement 12/12 Echo: Mobile density seen with high velocities across AV highly suspicious for AV endocarditis, transmitral doppler flow pattern is grade 1 (abnormal relaxation pattern), LV and RV systolic function normal, EF = 60-65% Cultures: 12/12 Blood Cx: Gram positive cocci in changes - Strep mitis 12/12 Urine Cx: no growth Zosyn 3.375 gm Q6H, 12/14 Vanc 1 gm Q12H discontinued per ID Consult: Dr. Trevino , Patient was on augmentin, awaiting PICC line placement 01/12 Patient placed back on Zosyn 3.375 gmQ6H due to PICC line placement, to finish antibiotics on January 23, 2017 Tylenol 650 mg PO Q6 prn fever. Due to history of hepatitis, monitor LFTs, consider changing medication * Patient seen at [facility] in 09/2016. Patient had TTE at that time which did NOT show vegetations on valve. Patient was also seen by psychiatry at that time as well as general surgery for abscess I&D. Will attempt to obtain patient's March [facility] medical records with information regarding valve surgery * Dr. Willson was contacted and agreed to see the patient on consult as long as Dr. Rushing (cardiology) accepts the transfer under his care * Dr. Rushing (who originally cared for the patient at [facility]) did not return any of our calls so the patient will stay here for the remainder of his antibiotic treatment. * Patient on Zosyn until Jan.23 * Blood work to be changed to Sat/Mon/Wed schedule Systolic ejection murmur * Likely 2/2 aortic valve replacement x2 * Echo 12/12 showed vegetations * Cardio consult on 12/14 (Dr. Leyva): does not recommend CASPER at this time * Positive blood culture for Strep mitis (12/12/16) * Repeat Blood Cultures 12/14/16 and 12/16/16 showed NO growth at 5 days * Cont zosyn and d/c vanc per Dr. Trevino as stated above; F/U about abx coverage for strep mitis * 01/04 Central Line removed and replaced in the left femoral vein Unable to get blood return from middle lumen (brown) - suggest line removed and changed * Hx of IV drug use/porcine valve * CT surg consult (Dr. Peralta) - says should be followed up with surgeon who did original AV replacement (Dr. Willson) * See above * F/U Medical records from [facility] - call original surgeon for AV valve replacement and see if he would like to accept the patient at [facility] * CXR: Right-sided central venous catheter extends to the cavoatrial junction. Mild left basilar atelectasis/infiltrate and or small pleural effusion. Median sternotomy wires. Cardiomegaly. Low back pain * lumbar spine XR - No abnormalities seen * flexeril 5mg TID * MRI lumbar spine - No acute fracture, spondylolysis or spondylolisthesis. No evidence of discitis/osteomyelitis. Mild degenerative disc disease at L4-5 with a posterior disc bulge and superimposed right foraminal disc protrusion. Mild right neural foraminal stenosis. No central spinal canal stenosis. Note is made of splenomegaly, perisplenic and splenorenal arises in this patient with known hepatic cirrhosis. * Advised patient to walk around as much as tolerated Hematochezia * Resolved * likely 2/2 hemorrhoid found on SMILEY * Colace TID * Patient will need out patient colonoscopy Left shoulder pain/weakness * 2/2 Hx of fall * Left shoulder XR (12/13) - no acute dislocation or fracture, soft tissues unremarkable Diarrhea * Resolved * Stool Culture/O&P (12/12) - negative for O&P, salmonella, shigella, and campylobacter * Stool negative for leukocytes and occult blood (12/12) * Serum C. diff antigen and toxin negative (12/12) * Stool C diff (Neg) and repeat leukocytes (Neg) * stool culture 12/16 negative * Patient is occasionally constipated - obstruction series ordered 12/28 was negative * Managed on PRN basis History of Seizures * Continue Keppra 500 mg PO BID * Continue Gabapentin 300 mg PO BID History of Depression * Continue Zoloft 50 mg PO daily History of Hepatitis B & C * Monitor LFTs. 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 * On old admission growth factors like Neupogen (Filgrastim) were recommended for low WBC * Heme/Onc consulted ([facility]) - recs against IV iron supplementation at this time until infection resolves, transfusion support prn, plans to review peripheral smear, BM evaluation if counts do not return to baseline * HIV 1&2 Ab screen negative * Stool negative for occult blood Prophylactic Measure * Heparin and GI ppx held due to platelets * SCDs for now * Patient has been getting up every 2 hours and performing 10 laps around the floor * Maalox 30 ml PO once a day PRN indigestion Patient placed back on Zosyn 3.375 gmQ6H due to PICC line placement, to finish antibiotics on January 23, [address] Whatley on the phone. Dr. Whatley said patient is okay to discharge home. He said patient will be admitted under process mechanic at [facility] when admitted. Original Note: <Meli Foster - Last Filed: 01/13/17 13:52> Subjective - Date & Time of Evaluation Date of Evaluation: 01/13/17 Time of Evaluation: 13:52 - Subjective Subjective: Internal Medicine Progress Note for Dr. Dc Patient seen and examined at bedside. Patient states he is doing well. right picc line not causing patient issues. No acute events overnight. Patient states he has had sweats overnight. Patient denies chills, difficulty with bowel movements, or urination problems. Patient states he does not feel the urge to do drugs anymore. Patient has no complaints at this time. Objective - Vital Signs/Intake and Output Vital Signs (last 24 hours): Temp Pulse Resp BP Pulse Ox 98.7 F 104 H 20 116/73 94 L 01/13/17 07:10 01/13/17 07:10 01/13/17 07:10 01/13/17 10:25 01/13/17 07:10 Intake and Output: 01/13/17 01/13/17 06:59 18:59 Intake Total 450 Output Total 850 Balance -400 - Medications Medications: Current Medications Cyclobenzaprine HCl (Flexeril) 5 mg PO Q8H PRN PRN Reason: Muscle spasm Last Admin: 01/13/17 08:55 Dose: 5 mg Dicyclomine HCl (Bentyl) 20 mg PO Q8 PRN PRN Reason: ABDOMINAL PAIN Gabapentin (Neurontin) 300 mg PO BID [facility] Last Admin: 01/13/17 10:25 Dose: 300 mg Hydroxyzine HCl (Atarax) 50 mg PO Q6H PRN PRN Reason: Anxiety Last Admin: 01/12/17 22:52 Dose: 50 mg Piperacillin Sod/Tazobactam Sod (Zosyn 3.375 Gm Iv Premix) 3.375 gm in 50 mls @ 100 mls/hr IVPB Q8H [facility] Last Admin: 01/13/17 10:26 Dose: 100 mls/hr Levetiracetam (Keppra) 500 mg PO BID [facility] Last Admin: 01/13/17 10:25 Dose: 500 mg Metoprolol Tartrate (Lopressor) 25 mg PO BID [facility] Last Admin: 01/13/17 10:25 Dose: 25 mg Ondansetron HCl (Zofran Tab) 4 mg PO Q8 PRN PRN Reason: Nausea/Vomiting Potassium Chloride (K-Dur 20 Meq Er Tab) 20 meq PO DAILY [facility] Last Admin: 01/13/17 10:25 Dose: 20 meq Saccharomyces Boulardii (Florastor) 250 mg PO BID [facility] Last Admin: 01/13/17 10:26 Dose: 250 mg Sertraline HCl (Zoloft) 50 mg PO DAILY [facility] Last Admin: 01/13/17 10:26 Dose: 50 mg Trazodone HCl (Desyrel) 100 mg PO HS [facility] Last Admin: 01/12/17 22:51 Dose: 100 mg - Labs Labs: 01/12/17 13:56 01/12/17 13:56 PT 14.2 SECONDS (9.7-12.2) H 12/12/16 07:08 INR 1.3 12/12/16 07:08 APTT 32 SECONDS (21-34) 12/12/16 07:08 - Constitutional Appears: Chronically Ill - Head Exam Head Exam: NORMAL INSPECTION - Eye Exam Eye Exam: EOMI, Normal appearance - ENT Exam ENT Exam: Mucous Membranes Moist - Neck Exam Neck Exam: Full ROM - Respiratory Exam Respiratory Exam: Clear to Ausculation Bilateral, NORMAL BREATHING PATTERN. absent: Accessory Muscle Use, Respiratory Distress - Cardiovascular Exam Cardiovascular Exam: Tachycardia, REGULAR RHYTHM. absent: Bradycardia - GI/Abdominal Exam GI & Abdominal Exam: Soft, Normal Bowel Sounds. absent: Tenderness, Pulsatile Mass - Extremities Exam Extremities Exam: Full ROM, Normal Inspection. absent: Pedal Edema - Neurological Exam Neurological Exam: Alert, Awake, Oriented x3 - Psychiatric Exam Psychiatric exam: Normal Affect, Normal Mood - Skin Skin Exam: Warm Additional comments: Right PICC line, no hematoma, erythema, induration <Chichi Dc V - Last Filed: 01/13/17 19:51> Objective - Vital Signs/Intake and Output Vital Signs (last 24 hours): Temp Pulse Resp BP Pulse Ox 98.8 F 97 H 18 102/67 96 01/13/17 15:45 01/13/17 15:45 01/13/17 15:45 01/13/17 17:32 01/13/17 15:45 Intake and Output: 01/13/17 01/14/17 18:59 06:59 Output Total 350 Balance -350 - Medications Medications: Current Medications Cyclobenzaprine HCl (Flexeril) 5 mg PO Q8H PRN PRN Reason: Muscle spasm Last Admin: 01/13/17 17:34 Dose: 5 mg Dicyclomine HCl (Bentyl) 20 mg PO Q8 PRN PRN Reason: ABDOMINAL PAIN Gabapentin (Neurontin) 300 mg PO BID [facility] Last Admin: 01/13/17 17:32 Dose: 300 mg Hydroxyzine HCl (Atarax) 50 mg PO Q6H PRN PRN Reason: Anxiety Last Admin: 01/12/17 22:52 Dose: 50 mg Piperacillin Sod/Tazobactam Sod (Zosyn 3.375 Gm Iv Premix) 3.375 gm in 50 mls @ 100 mls/hr IVPB Q8H [facility] Last Admin: 01/13/17 17:32 Dose: 100 mls/hr Levetiracetam (Keppra) 500 mg PO BID [facility] Last Admin: 01/13/17 17:32 Dose: 500 mg Metoprolol Tartrate (Lopressor) 25 mg PO BID [facility] Last Admin: 01/13/17 17:32 Dose: 25 mg Ondansetron HCl (Zofran Tab) 4 mg PO Q8 PRN PRN Reason: Nausea/Vomiting Potassium Chloride (K-Dur 20 Meq Er Tab) 20 meq PO DAILY [facility] Last Admin: 01/13/17 10:25 Dose: 20 meq Saccharomyces Boulardii (Florastor) 250 mg PO BID [facility] Last Admin: 01/13/17 17:31 Dose: 250 mg Sertraline HCl (Zoloft) 50 mg PO DAILY [facility] Last Admin: 01/13/17 10:26 Dose: 50 mg Trazodone HCl (Desyrel) 100 mg PO HS [facility] Last Admin: 01/12/17 22:51 Dose: 100 mg - Labs Labs: 01/12/17 13:56 01/12/17 13:56 PT 14.2 SECONDS (9.7-12.2) H 12/12/16 07:08 INR 1.3 12/12/16 07:08 APTT 32 SECONDS (21-34) 12/12/16 07:08 Attending/Attestation - Attestation I have personally seen and examined this patient.: Yes I have fully participated in the care of the patient.: Yes I have reviewed all pertinent clinical information, including history, physical exam and plan: Yes Notes (Text): Patient seen, examined and case discussed with day-time resident. Patient received PICC line yesterday over right upper extremity. Patient denies acute complaints. Patient appears well, unkempt from unshaved christopher. patient reports he will never take drugs again. Patient understands a vegetation/ bacteria from the heart can kill him. Femoral tip: negative culture. Urine culture: no growth and Blood cultures: no growth 3 days X2 Patient to resume IV abx therapy with end date on 01/23/17. Electrolytes repleted Assessment/Plan 1) Sepsis * Criteria: WBC<4; Temp: 104 F; positive blood cultures; Lactate: 1.2 on admission * Infectious Disease (Dr. Trevino) on board * Zosyn 3.375 gm Q6H (active since 12/12/16)-->patient to complete 6 weeks of IV Abx on January; off IV abx until PICC line can be placed * Echocardiogram (12/14/16): left ventricle systolic function is normal; EF: 60- 65%, Transmital doppler flow pattern is Grade I abnormal relaxation pattern. Right ventricular systolic function is normal. Aortic valve bioprosthetic. Mobile density seen with high velocities across Aortic valve highly suspicious for aortic valve endocarditis. recommended for CASPER * Cardiology (Dr. Leyva)-->no CASPER; patient has endocarditis * Blood culture (12/12/16): Strep mitis X2 * Blood culture (12/14/16): No growth * Blood culture (12/16/16): No growth * Blood culture (01/08/17): no growth after 3 days X2 * Urine culture (12/12/16): no growth * Blood culture (01/10): no growth after 3 days * Urine culture (01/10): no growth * Femoral tip culture: no growth * Zosyn 3.375 gm Q6H (active since 12/12/16)-->patient to complete 6 weeks of IV Abx on January * s/p PICC on 01/12 * Tylenol 650 mg PO Q6 prn fever. Monitor liver function tests in light of hepatitis hx 2) Endocarditis * Infectious Disease (Dr. Trevino) on board-->help appreciated * IV abx for 6 weeks * Cardiology (Dr. Leyva)-->no CASPER; patient has endocarditis * Echocardiogram (12/14/16): left ventricle systolic function is normal; EF: 60- 65%, Transmital doppler flow pattern is Grade I abnormal relaxation pattern. Right ventricular systolic function is normal. Aortic valve bioprosthetic. Mobile density seen with high velocities across Aortic valve highly suspicious for aortic valve endocarditis. recommended for CASPER * IV Abx: Zosyn 3.375 gm Q6H (active since 12/12/16) and Vancomycin discontinued * Blood cultures (12/12/16): Strep mitis X2 * Blood cultures (12/14/16): no growth * Risk factors: +murmur, IV drug use (2 major in Daily's Criteria) * Chest Xray (12/16/16): CXR: Right-sided central venous catheter extends to the cavoatrial junction. Mild left basilar atelectasis/infiltrate and or small pleural effusion. Median sternotomy wires. Cardiomegaly. * Resident spoke with process mechanic Dr. Leyva on 01/12, recommended to complete Iv abx, discharge from the hospital and to come to be admitted to [facility] to be admitted for vegetation on porcine valve. 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 Mild degenerative disc disease at L4-5 with a posterior disc bulge and superimposed right foraminal disc protrusion. Mild right neural foraminal stenosis. No central spinal canal stenosis. Note is made of splenomegaly, perisplenic and splenorenal arises in this patient with known hepatic cirrhosis. * Flexeril 5mg PO TID prn muscle spasm 6) Diarrhea * Resolved * Stool culture/O&P (12/12): negative for O&P, salmonella, shigella, and campylobacter * Stool negative for leukocytes and occult blood * Serum C. Diff antigen and toxin: negative X2 7) Constipation * Resolved * Obstructive series (12/28/16): moderate constipation * Had BM following obstructive series. * Start Colace 100mg PO bid 8) History of Seizures * Continue Keppra 500 mg PO BID * Continue Gabapentin 300 mg PO BID 9) History of Depression * Continue Zoloft 50 mg PO daily 9) History of Hepatitis B & C * Monitor LFTs. Currently WNL 10) Pancytopenia * Heme-Onc (Dr. 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 On old admission growth factors like Neupogen (Filgrastim) were recommended for low WBC. * Monitor H/H and platelets 11) Prophylactic Measure * Heparin and GI ppx held due thrombocytopenia * SCDs * Florastor 250mg PO bid Disposition: Patient complete 6 weeks of IV abx. Repeat cultures remain negative. Afebrile Patient to complete IV abx on 01/23/17 and to follow-up with cardiology/thoracic at [facility] upon discharge.
[2017-01-14] MEDS: Piperacill/Tazo 3.375gm in Dex 3.375 GM/50 ML BAG IVPB SCH ×3 (01:05→18:46)
[2017-01-14 07:06] LABS: BASO % 0.6 % (0.0-2.0); EOS % 1.2 % (0.0-4.0); HEMATOCRIT 27.5 % (35.0-51.0); LYMPH # 0.5 K/uL (1.0-4.3); LYMPH % 12.7 % (20.0-40.0); MEAN CELL VOLUME 77.4 fL (80.0-94.0); MEAN CORPUSCULAR HEMOGLOBIN 25.5 pg (27.0-31.0); MEAN PLATELET VOLUME 7.8 fL (7.2-11.7); MONO # 0.3 K/uL (0.0-0.8); MONO % 7.5 % (0.0-10.0); RED CELL DISTRIBUTION WIDTH 17.3 % (11.5-14.5); WHITE BLOOD COUNT 3.6 K/uL (4.8-10.8)
[2017-01-14 07:33] LABS: CHLORIDE 100 mmol/L (98-107)
[2017-01-14 07:35] LABS: POTASSIUM 3.9 mmol/L (3.6-5.2); SODIUM 138 mmol/L (132-148)
[2017-01-14 07:37] LABS: ALB/GLOB RATIO 0.9 (1.0-2.1); ALKALINE PHOSPHATASE 78 U/L (38-126); ALT/SGPT 45 U/L (21-72); AST/SGOT 32 U/L (17-59); BILIRUBIN,TOTAL 0.5 mg/dL (0.2-1.3); BLOOD UREA NITROGEN 16 mg/dL (9-20); CARBON DIOXIDE 25 mmol/L (22-30); GFR AFRICAN-AMERICAN > 60; GLUCOSE,RANDOM 90 mg/dL (75-110); PHOSPHOROUS 3.4 mg/dL (2.5-4.5); TOTAL PROTEIN 6.4 g/dL (6.3-8.3)
[2017-01-14 07:38] LABS: CALCIUM 8.4 mg/dl (8.6-10.4); MAGNESIUM 1.6 mg/dL (1.6-2.3)
[2017-01-14] MEDS: Potassium Chloride 20 mEq ER Tab PO SCH (11:35)
[2017-01-14] MEDS: Saccharomyces Boulardi 250 mg Cap PO SCH ×2 (11:36→18:34)
--- NOTE | 2017-01-14 13:53 | CP.PCM.PN ---
<Meli Foster - Last Filed: 01/14/17 18:00> Subjective - Date & Time of Evaluation Date of Evaluation: 01/14/17 Time of Evaluation: 18:00 - Subjective Subjective: Internal Medicine Progress Note for Dr. Dc No complaints overnight. No sweats, fever, chills, Nausea, vomiting, no diarrhea. Patient admitted to left lower quadrant pain. No acute events overnight per nursing staff. Objective - Vital Signs/Intake and Output Vital Signs (last 24 hours): Temp Pulse Resp BP Pulse Ox 98.2 F 122 H 20 121/79 96 01/13/17 23:35 01/14/17 07:50 01/13/17 23:35 01/14/17 11:35 01/13/17 23:35 Intake and Output: 01/14/17 01/14/17 06:59 18:59 Intake Total 570 Output Total 200 Balance 370 - Medications Medications: Current Medications Cyclobenzaprine HCl (Flexeril) 5 mg PO Q8H PRN PRN Reason: Muscle spasm Last Admin: 01/14/17 06:12 Dose: 5 mg Dicyclomine HCl (Bentyl) 20 mg PO Q8 PRN PRN Reason: ABDOMINAL PAIN Gabapentin (Neurontin) 300 mg PO BID [facility] Last Admin: 01/14/17 11:36 Dose: 300 mg Hydroxyzine HCl (Atarax) 50 mg PO Q6H PRN PRN Reason: Anxiety Last Admin: 01/14/17 11:35 Dose: 50 mg Piperacillin Sod/Tazobactam Sod (Zosyn 3.375 Gm Iv Premix) 3.375 gm in 50 mls @ 100 mls/hr IVPB Q8H [facility] Last Admin: 01/14/17 11:34 Dose: 100 mls/hr Levetiracetam (Keppra) 500 mg PO BID [facility] Last Admin: 01/14/17 11:35 Dose: 500 mg Metoprolol Tartrate (Lopressor) 25 mg PO BID [facility] Last Admin: 01/14/17 11:35 Dose: 25 mg Ondansetron HCl (Zofran Tab) 4 mg PO Q8 PRN PRN Reason: Nausea/Vomiting Potassium Chloride (K-Dur 20 Meq Er Tab) 20 meq PO DAILY [facility] Last Admin: 01/14/17 11:35 Dose: 20 meq Saccharomyces Boulardii (Florastor) 250 mg PO BID [facility] Last Admin: 01/14/17 11:36 Dose: 250 mg Sertraline HCl (Zoloft) 50 mg PO DAILY [facility] Last Admin: 01/14/17 11:36 Dose: 50 mg Trazodone HCl (Desyrel) 100 mg PO HS [facility] Last Admin: 01/13/17 22:47 Dose: 100 mg - Labs Labs: 01/14/17 06:53 01/14/17 06:53 PT 14.2 SECONDS (9.7-12.2) H 12/12/16 07:08 INR 1.3 12/12/16 07:08 APTT 32 SECONDS (21-34) 12/12/16 07:08 - Constitutional Appears: Non-toxic - Head Exam Head Exam: NORMAL INSPECTION - Eye Exam Eye Exam: EOMI, Normal appearance - ENT Exam ENT Exam: Mucous Membranes Moist - Neck Exam Neck Exam: Full ROM - Respiratory Exam Respiratory Exam: NORMAL BREATHING PATTERN. absent: Accessory Muscle Use, Wheezes - Cardiovascular Exam Cardiovascular Exam: +S1, +S2, Murmur Additional comments: patient has heart valve replaced - GI/Abdominal Exam GI & Abdominal Exam: Soft, Tenderness Additional comments: muscle strain noted on palpation. no rigidity, no guarding, no rebound tenderness - Extremities Exam Extremities Exam: Full ROM, Normal Inspection. absent: Pedal Edema - Neurological Exam Neurological Exam: Alert, Awake, Oriented x3 - Psychiatric Exam Psychiatric exam: Normal Affect, Normal Mood - Skin Skin Exam: Dry, Intact, Normal Color, Warm Assessment and Plan - Assessment and Plan (Free Text) Assessment: Hypokalemia, repleted Bacteremia Imaging 01/11 CXR: PICC line placement in appropriate position 01/10: CXR: mild venous congestion, mild right hilar prominence. s/p median sternotomy 12/12 CXR: heterogenous infiltrate at inferior Right and Mid/inferior left lung zones vs atelectasis with likely small left pleural effusion and Right central venous line terminating at the right atrium 12/13 CXR: Right IJ central venous line with tip in the SVC after adjustment and right lower lobe opacity with improvement 12/12 Echo: Mobile density seen with high velocities across AV highly suspicious for AV endocarditis, transmitral doppler flow pattern is grade 1 (abnormal relaxation pattern), LV and RV systolic function normal, EF = 60-65% Cultures: 12/12 Blood Cx: Gram positive cocci in changes - Strep mitis 12/12 Urine Cx: no growth Zosyn 3.375 gm Q6H, 12/14 Vanc 1 gm Q12H discontinued per ID Consult: Dr. Trevino , Patient was on augmentin, awaiting PICC line placement 01/12 Patient placed back on Zosyn 3.375 gmQ6H due to PICC line placement, to finish antibiotics on January 23, 2017 Tylenol 650 mg PO Q6 prn fever. Due to history of hepatitis, monitor LFTs, consider changing medication * Patient seen [place] [facility] [place]. Patient had TTE at that time which did NOT show vegetations on valve. Patient was also seen by psychiatry at that time as well as general surgery for abscess I&D. Will attempt to obtain patient's [place] [facility] medical records with information regarding valve surgery * Dr. Willson was contacted and agreed to see the patient on consult as long as Dr. Rushing (cardiology) accepts the transfer under his care * Dr. Rushing (who originally cared for the patient at [facility]) did not return any of our calls so the patient will stay here for the remainder of his antibiotic treatment. * Patient on Zosyn until Jan.23 * Blood work to be changed to Sat/Mon/Wed schedule Systolic ejection murmur * Likely 2/2 aortic valve replacement x2 * Echo 12/12 showed vegetations * Cardio consult on 12/14 (Dr. Leyva): does not recommend CASPER at this time * Positive blood culture for Strep mitis (12/12/16) * Repeat Blood Cultures 12/14/16 and 12/16/16 showed NO growth at 5 days * Cont zosyn and d/c vanc per Dr. Trevino as stated above; F/U about abx coverage for strep mitis * 01/04 Central Line removed and replaced in the left femoral vein Unable to get blood return from middle lumen (brown) - suggest line removed and changed * Hx of IV drug use/porcine valve * CT surg consult (Dr. Peralta) - says should be followed up with surgeon who did original AV replacement (Dr. Willson) * See above * F/U Medical records from [facility] - call original surgeon for AV valve replacement and see if he would like to accept the patient at [facility] * CXR: Right-sided central venous catheter extends to the cavoatrial junction. Mild left basilar atelectasis/infiltrate and or small pleural effusion. Median sternotomy wires. Cardiomegaly. Low back pain * lumbar spine XR - No abnormalities seen * flexeril 5mg TID * MRI lumbar spine - No acute fracture, spondylolysis or spondylolisthesis. No evidence of discitis/osteomyelitis. Mild degenerative disc disease at L4-5 with a posterior disc bulge and superimposed right foraminal disc protrusion. Mild right neural foraminal stenosis. No central spinal canal stenosis. Note is made of splenomegaly, perisplenic and splenorenal arises in this patient with known hepatic cirrhosis. * Advised patient to walk around as much as tolerated Hematochezia * Resolved * likely 2/2 hemorrhoid found on SMILEY * Colace TID * Patient will need out patient colonoscopy Left shoulder pain/weakness * 2/2 Hx of fall * Left shoulder XR (12/13) - no acute dislocation or fracture, soft tissues unremarkable Diarrhea * Resolved * Stool Culture/O&P (12/12) - negative for O&P, salmonella, shigella, and campylobacter * Stool negative for leukocytes and occult blood (12/12) * Serum C. diff antigen and toxin negative (12/12) * Stool C diff (Neg) and repeat leukocytes (Neg) * stool culture 12/16 negative * Patient is occasionally constipated - obstruction series ordered 12/28 was negative * Managed on PRN basis History of Seizures * Continue Keppra 500 mg PO BID * Continue Gabapentin 300 mg PO BID History of Depression * Continue Zoloft 50 mg PO daily History of Hepatitis B & C * Monitor LFTs. 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 * On old admission growth factors like Neupogen (Filgrastim) were recommended for low WBC * Heme/Onc consulted ([facility]) - recs against IV iron supplementation at this time until infection resolves, transfusion support prn, plans to review peripheral smear, BM evaluation if counts do not return to baseline * HIV 1&2 Ab screen negative * Stool negative for occult blood Prophylactic Measure * Heparin and GI ppx held due to platelets * SCDs for now * Patient has been getting up every 2 hours and performing 10 laps around the floor * Maalox 30 ml PO once a day PRN indigestion Patient placed back on Zosyn 3.375 gmQ6H due to PICC line placement, to finish antibiotics on January 23, [address] Whatley on the phone. Dr. Whatley said patient is okay to discharge home. He said patient will be admitted under medical service technician at [facility] when admitted. <Chichi Dc V - Last Filed: 01/15/17 12:33> Objective - Vital Signs/Intake and Output Vital Signs (last 24 hours): Temp Pulse Resp BP Pulse Ox 99.7 F H 85 20 119/72 98 01/15/17 07:55 01/15/17 12:12 01/15/17 07:55 01/15/17 09:18 01/15/17 07:55 Intake and Output: 01/15/17 01/15/17 06:59 18:59 Intake Total 60 Output Total 400 Balance -340 - Medications Medications: Current Medications Cyclobenzaprine HCl (Flexeril) 5 mg PO Q8H PRN PRN Reason: Muscle spasm Last Admin: 01/15/17 05:24 Dose: 5 mg Dicyclomine HCl (Bentyl) 20 mg PO Q8 PRN PRN Reason: ABDOMINAL PAIN Gabapentin (Neurontin) 300 mg PO BID [facility] Last Admin: 01/15/17 09:18 Dose: 300 mg Hydroxyzine HCl (Atarax) 50 mg PO Q6H PRN PRN Reason: Anxiety Last Admin: 01/15/17 09:18 Dose: 50 mg Piperacillin Sod/Tazobactam Sod (Zosyn 3.375 Gm Iv Premix) 3.375 gm in 50 mls @ 100 mls/hr IVPB Q8H [facility] Last Admin: 01/15/17 09:17 Dose: 100 mls/hr Levetiracetam (Keppra) 500 mg PO BID [facility] Last Admin: 01/15/17 09:18 Dose: 500 mg Metoprolol Tartrate (Lopressor) 25 mg PO BID [facility] Last Admin: 01/15/17 09:18 Dose: 25 mg Ondansetron HCl (Zofran Tab) 4 mg PO Q8 PRN PRN Reason: Nausea/Vomiting Potassium Chloride (K-Dur 20 Meq Er Tab) 20 meq PO DAILY [facility] Last Admin: 01/15/17 09:21 Dose: Not Given Saccharomyces Boulardii (Florastor) 250 mg PO BID [facility] Last Admin: 01/15/17 09:18 Dose: 250 mg Sertraline HCl (Zoloft) 50 mg PO DAILY [facility] Last Admin: 01/15/17 09:18 Dose: 50 mg Trazodone HCl (Desyrel) 100 mg PO HS [facility] Last Admin: 01/14/17 22:12 Dose: 100 mg - Labs Labs: 01/14/17 06:53 01/14/17 06:53 PT 14.2 SECONDS (9.7-12.2) H 12/12/16 07:08 INR 1.3 12/12/16 07:08 APTT 32 SECONDS (21-34) 12/12/16 07:08 Attending/Attestation - Attestation I have personally seen and examined this patient.: Yes I have fully participated in the care of the patient.: Yes I have reviewed all pertinent clinical information, including history, physical exam and plan: Yes Notes (Text): This is late computer entry for 01/14/17. Patient seen, examined and case discussed with day-time resident. Patient reports left lower quadrant pain which he describes as a muscle spasm. Patient denies diarrhea, does not exhibit a white count, and remains afebrile. Low suspicion for diverticulitis. Patient reports he is walking every day but he is slumped in bed every time I see him. Patient denies acute complaints. Femoral tip: negative culture. Urine culture: no growth and Blood cultures: no growth 4 days X2 Patient to resume IV abx therapy with end date on 01/23/17. Assessment/Plan 1) Sepsis * Criteria: WBC<4; Temp: 104 F; positive blood cultures; Lactate: 1.2 on admission * Infectious Disease (Dr. Trevino) on board * Zosyn 3.375 gm Q6H (active since 12/12/16)-->patient to complete 6 weeks of IV Abx on January; off IV abx until PICC line can be placed * Echocardiogram (12/14/16): left ventricle systolic function is normal; EF: 60- 65%, Transmital doppler flow pattern is Grade I abnormal relaxation pattern. Right ventricular systolic function is normal. Aortic valve bioprosthetic. Mobile density seen with high velocities across Aortic valve highly suspicious for aortic valve endocarditis. recommended for CASPER * Cardiology (Dr. Leyva)-->no CASPER; patient has endocarditis * Blood culture (12/12/16): Strep mitis X2 * Blood culture (12/14/16): No growth * Blood culture (12/16/16): No growth * Blood culture (01/08/17): no growth after 3 days X2 * Urine culture (12/12/16): no growth * Blood culture (01/10): no growth after 3 days * Urine culture (01/10): no growth * Femoral tip culture: no growth * Zosyn 3.375 gm Q6H (active since 12/12/16)-->patient to complete 6 weeks of IV Abx on January * s/p PICC on 01/12 * Tylenol 650 mg PO Q6 prn fever. Monitor liver function tests in light of hepatitis hx 2) Endocarditis * Infectious Disease (Dr. Trevino) on board-->help appreciated * IV abx for 6 weeks * Cardiology (Dr. Leyva)-->no CASPER; patient has endocarditis * Echocardiogram (12/14/16): left ventricle systolic function is normal; EF: 60- 65%, Transmital doppler flow pattern is Grade I abnormal relaxation pattern. Right ventricular systolic function is normal. Aortic valve bioprosthetic. Mobile density seen with high velocities across Aortic valve highly suspicious for aortic valve endocarditis. recommended for CASPER * IV Abx: Zosyn 3.375 gm Q6H (active since 12/12/16) and Vancomycin discontinued * Blood cultures (12/12/16): Strep mitis X2 * Blood cultures (12/14/16): no growth * Risk factors: +murmur, IV drug use (2 major in Daily's Criteria) * Chest Xray (12/16/16): CXR: Right-sided central venous catheter extends to the cavoatrial junction. Mild left basilar atelectasis/infiltrate and or small pleural effusion. Median sternotomy wires. Cardiomegaly. * Resident spoke with medical service technician Dr. Leyva on 01/12, recommended to complete Iv abx, discharge from the hospital and to come to be admitted to [facility] to be admitted for vegetation on porcine valve. 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 Mild degenerative disc disease at L4-5 with a posterior disc bulge and superimposed right foraminal disc protrusion. Mild right neural foraminal stenosis. No central spinal canal stenosis. Note is made of splenomegaly, perisplenic and splenorenal arises in this patient with known hepatic cirrhosis. * Flexeril 5mg PO TID prn muscle spasm 6) Diarrhea * Resolved * Stool culture/O&P (12/12): negative for O&P, salmonella, shigella, and campylobacter * Stool negative for leukocytes and occult blood * Serum C. Diff antigen and toxin: negative X2 7) Constipation * Resolved * Obstructive series (12/28/16): moderate constipation * Had BM following obstructive series. * Start Colace 100mg PO bid 8) History of Seizures * Continue Keppra 500 mg PO BID * Continue Gabapentin 300 mg PO BID 9) History of Depression * Continue Zoloft 50 mg PO daily 9) History of Hepatitis B & C * Monitor LFTs. Currently WNL 10) Pancytopenia * Heme-Onc (Dr. 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 On old admission growth factors like Neupogen (Filgrastim) were recommended for low WBC. * Monitor H/H and platelets 11) Prophylactic Measure * Heparin and GI ppx held due thrombocytopenia * SCDs * Florastor 250mg PO bid Disposition: Patient complete 6 weeks of IV abx. Repeat cultures remain negative. Afebrile Patient to complete IV abx on 01/23/17 and to follow-up with cardiology[place]acic [place] [facility] [place] discharg
[2017-01-15] MEDS: Piperacill/Tazo 3.375gm in Dex 3.375 GM/50 ML BAG IVPB SCH ×3 (01:35→17:56)
--- NOTE | 2017-01-15 01:48 | CP.PCM.PN ---
<Pernell Best - Last Filed: 01/15/17 09:17> Subjective - Date & Time of Evaluation Date of Evaluation: 01/15/17 Time of Evaluation: 05:50 - Subjective Subjective: PGY-[address] Dc Patient seen and examined at bedside. Patient reports no acute complaints. Patient states that he has his usual left lower quadrant pain but he states that it does not seem to bother him presently. Patient denies fever, chills, chest pain, dyspnea, dysuria. Objective - Vital Signs/Intake and Output Vital Signs (last 24 hours): Temp Pulse Resp BP Pulse Ox 99.2 F 106 H 20 122/80 95 01/14/17 15:00 01/14/17 15:30 01/14/17 15:00 01/14/17 18:45 01/14/17 15:00 Intake and Output: 01/14/17 01/15/17 18:59 06:59 Intake Total 800 Output Total 900 Balance -100 - Medications Medications: Current Medications Cyclobenzaprine HCl (Flexeril) 5 mg PO Q8H PRN PRN Reason: Muscle spasm Last Admin: 01/14/17 18:45 Dose: 5 mg Dicyclomine HCl (Bentyl) 20 mg PO Q8 PRN PRN Reason: ABDOMINAL PAIN Gabapentin (Neurontin) 300 mg PO BID [facility] Last Admin: 01/14/17 18:34 Dose: 300 mg Hydroxyzine HCl (Atarax) 50 mg PO Q6H PRN PRN Reason: Anxiety Last Admin: 01/14/17 22:12 Dose: 50 mg Piperacillin Sod/Tazobactam Sod (Zosyn 3.375 Gm Iv Premix) 3.375 gm in 50 mls @ 100 mls/hr IVPB Q8H [facility] Last Admin: 01/15/17 01:35 Dose: 100 mls/hr Levetiracetam (Keppra) 500 mg PO BID [facility] Last Admin: 01/14/17 18:34 Dose: 500 mg Metoprolol Tartrate (Lopressor) 25 mg PO BID [facility] Last Admin: 01/14/17 18:45 Dose: 25 mg Ondansetron HCl (Zofran Tab) 4 mg PO Q8 PRN PRN Reason: Nausea/Vomiting Potassium Chloride (K-Dur 20 Meq Er Tab) 20 meq PO DAILY [facility] Last Admin: 01/14/17 11:35 Dose: 20 meq Saccharomyces Boulardii (Florastor) 250 mg PO BID [facility] Last Admin: 01/14/17 18:34 Dose: 250 mg Sertraline HCl (Zoloft) 50 mg PO DAILY [facility] Last Admin: 01/14/17 11:36 Dose: 50 mg Trazodone HCl (Desyrel) 100 mg PO HS [facility] Last Admin: 01/14/17 22:12 Dose: 100 mg - Labs Labs: 01/14/17 06:53 01/14/17 06:53 PT 14.2 SECONDS (9.7-12.2) H 12/12/16 07:08 INR 1.3 12/12/16 07:08 APTT 32 SECONDS (21-34) 12/12/16 07:08 - Constitutional Appears: No Acute Distress - Head Exam Head Exam: ATRAUMATIC, NORMOCEPHALIC - Eye Exam Eye Exam: EOMI, Normal appearance - ENT Exam ENT Exam: Mucous Membranes Moist - Neck Exam Neck Exam: Full ROM - Respiratory Exam Respiratory Exam: Clear to Ausculation Bilateral. absent: Rales, Rhonchi, Wheezes - Cardiovascular Exam Cardiovascular Exam: REGULAR RHYTHM, +S1, +S2, Murmur (systolic murmur. patient with history of aortic valve replacement x2) - GI/Abdominal Exam GI & Abdominal Exam: Soft, Tenderness (left lower quadrant), Normal Bowel Sounds - Extremities Exam Extremities Exam: Normal Inspection. absent: Calf Tenderness, Pedal Edema - Neurological Exam Neurological Exam: Alert, Awake, Oriented x3 - Psychiatric Exam Psychiatric exam: Normal Affect, Normal Mood - Skin Skin Exam: Dry, Intact, Normal Color, Warm Assessment and Plan - Assessment and Plan (Free Text) Plan: Bacteremia Imaging 01/11 CXR: PICC line placement in appropriate position 01/10: CXR: mild venous congestion, mild right hilar prominence. s/p median sternotomy 12/12 CXR: heterogenous infiltrate at inferior Right and Mid/inferior left lung zones vs atelectasis with likely small left pleural effusion and Right central venous line terminating at the right atrium 12/13 CXR: Right IJ central venous line with tip in the SVC after adjustment and right lower lobe opacity with improvement 12/12 Echo: Mobile density seen with high velocities across AV highly suspicious for AV endocarditis, transmitral doppler flow pattern is grade 1 (abnormal relaxation pattern), LV and RV systolic function normal, EF = 60-65% Cultures: 12/12 Blood Cx: Gram positive cocci in changes - Strep mitis 12/12 Urine Cx: no growth Zosyn 3.375 gm Q6H, 12/14 Vanc 1 gm Q12H discontinued per ID Consult: Dr. Trevino , Patient was on augmentin, awaiting PICC line placement 01/12 Patient placed back on Zosyn 3.375 gmQ6H due to PICC line placement, to finish antibiotics on January 23, 2017 Tylenol 650 mg PO Q6 prn fever. Due to history of hepatitis, monitor LFTs, consider changing medication * Patient seen at [facility] in 09/2016. Patient had TTE at that time which did NOT show vegetations on valve. Patient was also seen by psychiatry at that time as well as general surgery for abscess I&D. Will attempt to obtain patient's March [facility] medical records with information regarding valve surgery * Dr. Willson was contacted and agreed to see the patient on consult as long as Dr. Rushing (cardiology) accepts the transfer under his care * Dr. Rushing (who originally cared for the patient at [facility]) did not return any of our calls so the patient will stay here for the remainder of his antibiotic treatment. * Patient on Zosyn until Jan.23 * Blood work to be changed to Sat/Mon/Wed schedule Systolic ejection murmur * Likely 2/2 aortic valve replacement x2 * Echo 12/12 showed vegetations * Cardio consult on 12/14 (Dr. Leyva): does not recommend CASPER at this time * Positive blood culture for Strep mitis (12/12/16) * Repeat Blood Cultures 12/14/16 and 12/16/16 showed NO growth at 5 days * Cont zosyn and d/c vanc per Dr. Trevino as stated above; F/U about abx coverage for strep mitis * 01/04 Central Line removed and replaced in the left femoral vein Unable to get blood return from middle lumen (brown) - suggest line removed and changed * Hx of IV drug use/porcine valve * CT surg consult (Dr. Peralta) - says should be followed up with surgeon who did original AV replacement (Dr. Willson) * See above * F/U Medical records from [facility] - call original surgeon for AV valve replacement and see if he would like to accept the patient at [facility] * CXR: Right-sided central venous catheter extends to the cavoatrial junction. Mild left basilar atelectasis/infiltrate and or small pleural effusion. Median sternotomy wires. Cardiomegaly. Low back pain * lumbar spine XR - No abnormalities seen * flexeril 5mg TID * MRI lumbar spine - No acute fracture, spondylolysis or spondylolisthesis. No evidence of discitis/osteomyelitis. Mild degenerative disc disease at L4-5 with a posterior disc bulge and superimposed right foraminal disc protrusion. Mild right neural foraminal stenosis. No central spinal canal stenosis. Note is made of splenomegaly, perisplenic and splenorenal arises in this patient with known hepatic cirrhosis. * Advised patient to walk around as much as tolerated Hematochezia * Resolved * likely 2/2 hemorrhoid found on SMILEY * Colace TID * Patient will need out patient colonoscopy Left shoulder pain/weakness * 2/2 Hx of fall * Left shoulder XR (12/13) - no acute dislocation or fracture, soft tissues unremarkable Diarrhea * Resolved * Stool Culture/O&P (12/12) - negative for O&P, salmonella, shigella, and campylobacter * Stool negative for leukocytes and occult blood (12/12) * Serum C. diff antigen and toxin negative (12/12) * Stool C diff (Neg) and repeat leukocytes (Neg) * stool culture 12/16 negative * Patient is occasionally constipated - obstruction series ordered 12/28 was negative * Managed on PRN basis History of Seizures * Continue Keppra 500 mg PO BID * Continue Gabapentin 300 mg PO BID History of Depression * Continue Zoloft 50 mg PO daily History of Hepatitis B & C * Monitor LFTs. 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 * On old admission growth factors like Neupogen (Filgrastim) were recommended for low WBC * Heme/Onc consulted ([facility]) - recs against IV iron supplementation at this time until infection resolves, transfusion support prn, plans to review peripheral smear, BM evaluation if counts do not return to baseline * HIV 1&2 Ab screen negative * Stool negative for occult blood Prophylactic Measure * Heparin and GI ppx held due to platelets * SCDs for now * Patient has been getting up every 2 hours and performing 10 laps around the floor * Maalox 30 ml PO once a day PRN indigestion Patient placed back on Zosyn 3.375 gmQ6H due to PICC line placement, to finish antibiotics on January 23, 2017 Dr. Leyva was spoken with on the phone. Dr. Leyva said patient is okay to be discharge home. Patient will follow up with cardiology/CT surgery at [facility]. Will discuss case with Dr. Vanda Best PGY1 <Chichi Dc V - Last Filed: 01/15/17 12:36> Objective - Vital Signs/Intake and Output Vital Signs (last 24 hours): Temp Pulse Resp BP Pulse Ox 99.7 F H 85 20 119/72 98 01/15/17 07:55 01/15/17 12:12 01/15/17 07:55 01/15/17 09:18 01/15/17 07:55 Intake and Output: 01/15/17 01/15/17 06:59 18:59 Intake Total 60 Output Total 400 Balance -340 - Medications Medications: Current Medications Cyclobenzaprine HCl (Flexeril) 5 mg PO Q8H PRN PRN Reason: Muscle spasm Last Admin: 01/15/17 05:24 Dose: 5 mg Dicyclomine HCl (Bentyl) 20 mg PO Q8 PRN PRN Reason: ABDOMINAL PAIN Gabapentin (Neurontin) 300 mg PO BID [facility] Last Admin: 01/15/17 09:18 Dose: 300 mg Hydroxyzine HCl (Atarax) 50 mg PO Q6H PRN PRN Reason: Anxiety Last Admin: 01/15/17 09:18 Dose: 50 mg Piperacillin Sod/Tazobactam Sod (Zosyn 3.375 Gm Iv Premix) 3.375 gm in 50 mls @ 100 mls/hr IVPB Q8H [facility] Last Admin: 01/15/17 09:17 Dose: 100 mls/hr Levetiracetam (Keppra) 500 mg PO BID [facility] Last Admin: 01/15/17 09:18 Dose: 500 mg Metoprolol Tartrate (Lopressor) 25 mg PO BID [facility] Last Admin: 01/15/17 09:18 Dose: 25 mg Ondansetron HCl (Zofran Tab) 4 mg PO Q8 PRN PRN Reason: Nausea/Vomiting Potassium Chloride (K-Dur 20 Meq Er Tab) 20 meq PO DAILY [facility] Last Admin: 01/15/17 09:21 Dose: Not Given Saccharomyces Boulardii (Florastor) 250 mg PO BID [facility] Last Admin: 01/15/17 09:18 Dose: 250 mg Sertraline HCl (Zoloft) 50 mg PO DAILY [facility] Last Admin: 01/15/17 09:18 Dose: 50 mg Trazodone HCl (Desyrel) 100 mg PO HS [facility] Last Admin: 01/14/17 22:12 Dose: 100 mg - Labs Labs: 01/14/17 06:53 01/14/17 06:53 PT 14.2 SECONDS (9.7-12.2) H 12/12/16 07:08 INR 1.3 12/12/16 07:08 APTT 32 SECONDS (21-34) 12/12/16 07:08 Attending/Attestation - Attestation I have personally seen and examined this patient.: Yes I have fully participated in the care of the patient.: Yes I have reviewed all pertinent clinical information, including history, physical exam and plan: Yes Notes (Text): Patient seen, examined and case discussed with day-time resident. Patient reports left lower quadrant pain which he describes as a muscle spasm, and reports it is still there. Patient denies diarrhea, does not exhibit a white count, and remains afebrile. Low suspicion for diverticulitis. Patient reports he walked prior to my arrival, but he is slumped in bed every time I see him. Patient denies acute complaints. Will order Ct abdomen/pelvis PO and iv contrast given LLQ but have low suspicion for acute pathology. Femoral tip: negative culture. Urine culture: no growth and Blood cultures: no growth 4 days X2, Patient had low grade fever: 99.4F will continue to monitor. Patient to resume IV abx therapy with end date on 01/23/17. Assessment/Plan 1) Sepsis * Criteria: WBC<4; Temp: 104 F; positive blood cultures; Lactate: 1.2 on admission * Infectious Disease (Dr. Trevino) on board * Zosyn 3.375 gm Q6H (active since 12/12/16)-->patient to complete 6 weeks of IV Abx on January; off IV abx until PICC line can be placed * Echocardiogram (12/14/16): left ventricle systolic function is normal; EF: 60- 65%, Transmital doppler flow pattern is Grade I abnormal relaxation pattern. Right ventricular systolic function is normal. Aortic valve bioprosthetic. Mobile density seen with high velocities across Aortic valve highly suspicious for aortic valve endocarditis. recommended for CASPER * Cardiology (Dr. Leyva)-->no CASPER; patient has endocarditis * Blood culture (12/12/16): Strep mitis X2 * Blood culture (12/14/16): No growth * Blood culture (12/16/16): No growth * Blood culture (01/08/17): no growth after 5 days X2 * Urine culture (12/12/16): no growth * Blood culture (01/10): no growth after 4 days * Urine culture (01/10): no growth * Femoral tip culture: no growth * Zosyn 3.375 gm Q6H (active since 12/12/16)-->patient to complete 6 weeks of IV Abx on January * s/p PICC on 01/12 * Tylenol 650 mg PO Q6 prn fever. Monitor liver function tests in light of hepatitis hx 2) Endocarditis * Infectious Disease (Dr. Trevino) on board-->help appreciated * IV abx for 6 weeks * Cardiology (Dr. Leyva)-->no CASPER; patient has endocarditis * Echocardiogram (12/14/16): left ventricle systolic function is normal; EF: 60- 65%, Transmital doppler flow pattern is Grade I abnormal relaxation pattern. Right ventricular systolic function is normal. Aortic valve bioprosthetic. Mobile density seen with high velocities across Aortic valve highly suspicious for aortic valve endocarditis. recommended for CASPER * IV Abx: Zosyn 3.375 gm Q6H (active since 12/12/16) and Vancomycin discontinued * Blood cultures (12/12/16): Strep mitis X2 * Blood cultures (12/14/16): no growth * Risk factors: +murmur, IV drug use (2 major in Daily's Criteria) * Chest Xray (12/16/16): CXR: Right-sided central venous catheter extends to the cavoatrial junction. Mild left basilar atelectasis/infiltrate and or small pleural effusion. Median sternotomy wires. Cardiomegaly. * Resident spoke with product management internship Dr. Leyva on 01/12, recommended to complete Iv abx, discharge from the hospital and to come to be admitted to [facility] to be admitted for vegetation on porcine valve. 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 Mild degenerative disc disease at L4-5 with a posterior disc bulge and superimposed right foraminal disc protrusion. Mild right neural foraminal stenosis. No central spinal canal stenosis. Note is made of splenomegaly, perisplenic and splenorenal arises in this patient with known hepatic cirrhosis. * Flexeril 5mg PO TID prn muscle spasm 6) Diarrhea * Resolved * Stool culture/O&P (12/12): negative for O&P, salmonella, shigella, and campylobacter * Stool negative for leukocytes and occult blood * Serum C. Diff antigen and toxin: negative X2 7) Constipation * Resolved * Obstructive series (12/28/16): moderate constipation * Had BM following obstructive series. * Start Colace 100mg PO bid 8) History of Seizures * Continue Keppra 500 mg PO BID * Continue Gabapentin 300 mg PO BID 9) History of Depression * Continue Zoloft 50 mg PO daily 9) History of Hepatitis B & C * Monitor LFTs. Currently WNL 10) Pancytopenia * Heme-Onc (Dr. 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 On old admission growth factors like Neupogen (Filgrastim) were recommended for low WBC. * Monitor H/H and platelets 11) Prophylactic Measure * Heparin and GI ppx held due thrombocytopenia * SCDs * Florastor 250mg PO bid Disposition: Patient complete 6 weeks of IV abx. Repeat cultures remain negative. Low grade fever: 99.F4F. Patient to complete IV abx on 01/23/17 and to follow-up with cardiology/thoracic at [facility] upon discharg
[2017-01-15] MEDS: Saccharomyces Boulardi 250 mg Cap PO SCH ×2 (09:18→17:56)
[2017-01-15] MEDS: Potassium Chloride 20 mEq ER Tab PO SCH ×2 (09:18→09:21)
[2017-01-15] MEDS ORDERED: Iohexol 240 (50 ml) PO ONE (15:00)
[2017-01-15] MEDS ORDERED: Iodixanol 320 MG/ML 100 ML BOTTLE IV ONE (17:26)
--- NOTE | 2017-01-15 19:05 | CT ---
EXAM: CT Abdomen and Pelvis With Intravenous Contrast EXAM DATE/TIME: Exam ordered 01/15/2017 12:36 PM CLINICAL HISTORY: 46 years old, male; Pain; Abdominal pain; Localized; Left lower quadrant (llq); Additional info: Llq pain TECHNIQUE: Axial computed tomography images of the abdomen and pelvis with intravenous contrast. All CT scans at this facility use one or more dose reduction techniques, viz.: automated exposure control; ma/kV adjustment per patient size (including targeted exams where dose is matched to indication; i.e. head); or iterative reconstruction technique. Coronal and sagittal reformatted images were created and reviewed. CONTRAST: 100 mL of [id number] administered intravenously. COMPARISON: US - ABDOMEN COMPLETE 01/10/2017 6:47:29 PM FINDINGS: Lower thorax: There is a small hiatal hernia. Paraesophageal varices are noted. Subpleural atelectasis/consolidation is noted in the posterior basal and lateral basal segment left lower lobe. ABDOMEN: Liver: The liver surface is nodular. The liver measures 18 cm in craniocaudal span. Gallbladder and bile ducts: Unremarkable. No calcified stones. No ductal dilation. Pancreas: Unremarkable. No mass. No ductal dilation. Spleen: The spleen measures 19 cm in craniocaudal span.There are 4 low density lesions noted within the spleen. Superiorly there is a 2.6 cm lesion noted beneath the liver capsule. In the midportion of the spleen there is a 1.8 cm low-density lesion again beneath the liver capsule. Inferiorly a third lesion is noted measuring 2 cm and again peripherally located. Inferior-anterior is a fourth lesion measuring approximately 2 cm Adrenals: There is a 1.4 cm low-density lesion in the right adrenal gland with a density measurement of 8H. Kidneys and ureters: A wedge-shaped area of low density is noted in the lower pole of the left kidney measuring 3.1 x 1.9 x 2.4 cm. . A 2 mm calcification is noted in the left kidney at the level of the suspected infarct. No hydronephrosis. Stomach and bowel: Unremarkable. No obstruction. No mucosal thickening. Appendix: No findings to suggest acute appendicitis. PELVIS: Bladder: Unremarkable. No mass. Reproductive: Unremarkable as visualized. ABDOMEN and PELVIS: Intraperitoneal space: Unremarkable. No free air. No significant fluid collection. Bones/joints: There has been a median sternotomy. There is an apparent dextroscoliosis of the thoracolumbar spine. No acute fracture. No dislocation. Soft tissues: Surgical clips are noted in the right groin. Vasculature: Varices are noted surrounding the spleen and the kateryna of the left and right kidneys. No abdominal aortic aneurysm. Lymph nodes: There are multiple periportal lymph nodes present. Medial to the main portal vein the breanna mass measures 2.2 x 1.7 x 1.6 cm. A lymph node mass posterior to the main portal vein measures 1.9 x 3.2 x 3.1 cm. Scattered lymph nodes are noted within the mesentery. IMPRESSION: 1. Cirrhosis with the portal hypertension including splenomegaly and marked variceal formation. 2. 4 splenic infarcts 3. Wedge shaped area of low attenuation within the lower pole of the left kidney. The appearance is most suggestive of a renal infarct although mass is not excluded. This was not identified on the recent ultrasound. Recommend abdominal CT or MRI follow-up in 1 year. 4. Periportal and mesenteric adenopathy. 5. Left-sided subpleural atelectasis/consolidation 6. Right adrenal adenoma. No follow-up is necessary. 7. Small hiatal hernia 8. Nonobstructing calcification lower pole of the left kidney corresponding to the finding seen on recent ultrasound.
[2017-01-16] MEDS: Piperacill/Tazo 3.375gm in Dex 3.375 GM/50 ML BAG IVPB SCH ×3 (01:58→17:00)
--- NOTE | 2017-01-16 09:59 | CP.PCM.PN ---
<Pernell Best - Last Filed: 01/16/17 11:58> Subjective - Date & Time of Evaluation Date of Evaluation: 01/16/17 Time of Evaluation: 06:40 - Subjective Subjective: PGY-[address] Dc Patient seen and examined at bedside. Patient reports no acute complaints. Patient still has the left lower quadrant pain but is able to tolerate it. Patient denies fever, chills, chest pain, dyspnea, dysuria. Objective - Vital Signs/Intake and Output Vital Signs (last 24 hours): Temp Pulse Resp BP Pulse Ox 98 F 89 18 101/70 96 01/16/17 08:00 01/16/17 08:00 01/16/17 08:00 01/16/17 08:00 01/16/17 08:00 Intake and Output: 01/16/17 01/16/17 06:59 18:59 Output Total 675 Balance -675 - Medications Medications: Current Medications Cyclobenzaprine HCl (Flexeril) 5 mg PO Q8H PRN PRN Reason: Muscle spasm Last Admin: 01/16/17 07:58 Dose: 5 mg Dicyclomine HCl (Bentyl) 20 mg PO Q8 PRN PRN Reason: ABDOMINAL PAIN Gabapentin (Neurontin) 300 mg PO BID [facility] Last Admin: 01/15/17 17:56 Dose: 300 mg Hydroxyzine HCl (Atarax) 50 mg PO Q6H PRN PRN Reason: Anxiety Last Admin: 01/15/17 09:18 Dose: 50 mg Piperacillin Sod/Tazobactam Sod (Zosyn 3.375 Gm Iv Premix) 3.375 gm in 50 mls @ 100 mls/hr IVPB Q8H [facility] Last Admin: 01/16/17 01:58 Dose: 100 mls/hr Levetiracetam (Keppra) 500 mg PO BID [facility] Last Admin: 01/15/17 17:56 Dose: 500 mg Metoprolol Tartrate (Lopressor) 25 mg PO BID [facility] Last Admin: 01/15/17 17:56 Dose: 25 mg Ondansetron HCl (Zofran Tab) 4 mg PO Q8 PRN PRN Reason: Nausea/Vomiting Potassium Chloride (K-Dur 20 Meq Er Tab) 20 meq PO DAILY [facility] Last Admin: 01/15/17 09:21 Dose: Not Given Saccharomyces Boulardii (Florastor) 250 mg PO BID [facility] Last Admin: 01/15/17 17:56 Dose: 250 mg Sertraline HCl (Zoloft) 50 mg PO DAILY [facility] Last Admin: 01/15/17 09:18 Dose: 50 mg Trazodone HCl (Desyrel) 100 mg PO HS [facility] Last Admin: 01/15/17 23:05 Dose: Not Given - Labs Labs: 01/14/17 06:53 01/14/17 06:53 PT 14.2 SECONDS (9.7-12.2) H 12/12/16 07:08 INR 1.3 12/12/16 07:08 APTT 32 SECONDS (21-34) 12/12/16 07:08 - Constitutional Appears: No Acute Distress - Head Exam Head Exam: ATRAUMATIC, NORMOCEPHALIC - Eye Exam Eye Exam: EOMI, Normal appearance - ENT Exam ENT Exam: Mucous Membranes Moist - Neck Exam Neck Exam: Full ROM - Respiratory Exam Respiratory Exam: Clear to Ausculation Bilateral. absent: Rales, Rhonchi, Wheezes - Cardiovascular Exam Cardiovascular Exam: REGULAR RHYTHM, +S1, +S2, Murmur (systolic murmur. patient with history of aortic valve replacement x2) - GI/Abdominal Exam GI & Abdominal Exam: Soft, Tenderness (left lower quadrant), Normal Bowel Sounds - Extremities Exam Extremities Exam: Normal Inspection. absent: Calf Tenderness, Pedal Edema - Neurological Exam Neurological Exam: Alert, Awake, Oriented x3 - Psychiatric Exam Psychiatric exam: Normal Affect, Normal Mood - Skin Skin Exam: Dry, Intact, Normal Color, Warm Assessment and Plan - Assessment and Plan (Free Text) Plan: Bacteremia Imaging 01/11 CXR: PICC line placement in appropriate position 01/10: CXR: mild venous congestion, mild right hilar prominence. s/p median sternotomy 12/12 CXR: heterogenous infiltrate at inferior Right and Mid/inferior left lung zones vs atelectasis with likely small left pleural effusion and Right central venous line terminating at the right atrium 12/13 CXR: Right IJ central venous line with tip in the SVC after adjustment and right lower lobe opacity with improvement 12/12 Echo: Mobile density seen with high velocities across AV highly suspicious for AV endocarditis, transmitral doppler flow pattern is grade 1 (abnormal relaxation pattern), LV and RV systolic function normal, EF = 60-65% Cultures: 12/12 Blood Cx: Gram positive cocci in changes - Strep mitis 12/12 Urine Cx: no growth Zosyn 3.375 gm Q6H, 12/14 Vanc 1 gm Q12H discontinued per ID Consult: Dr. Trevino , Patient was on augmentin, awaiting PICC line placement 01/12 Patient placed back on Zosyn 3.375 gmQ6H due to PICC line placement, to finish antibiotics on January 23, 2017 Tylenol 650 mg PO Q6 prn fever. Due to history of hepatitis, monitor LFTs, consider changing medication * Patient seen at [facility] [place]. Patient had TTE at that time which did NOT show vegetations on valve. Patient was also seen by psychiatry at that time as well as general surgery for abscess I&D. Will attempt to obtain patient's March [facility] medical records with information regarding valve surgery * Dr. Willson was contacted and agreed to see the patient on consult as long as Dr. Rushing (cardiology) accepts the transfer under his care * Dr. Rushing (who originally cared for the patient at [facility]) did not return any of our calls so the patient will stay here for the remainder of his antibiotic treatment. * Patient on Zosyn until Jan.23 * Blood work to be changed to Sat/Mon/Wed schedule Systolic ejection murmur * Likely 2/2 aortic valve replacement x2 * Echo 12/12 showed vegetations * Cardio consult on 12/14 (Dr. Leyva): does not recommend CASPER at this time * Positive blood culture for Strep mitis (12/12/16) * Repeat Blood Cultures 12/14/16 and 12/16/16 showed NO growth at 5 days * Cont zosyn and d/c vanc per Dr. Trevino as stated above; F/U about abx coverage for strep mitis * 01/04 Central Line removed and replaced in the left femoral vein Unable to get blood return from middle lumen (brown) - suggest line removed and changed * Hx of IV drug use/porcine valve * CT surg consult (Dr. Peralta) - says should be followed up with surgeon who did original AV replacement (Dr. Willson) * See above * F/U Medical records from [facility] - call original surgeon for AV valve replacement and see if he would like to accept the patient at [facility] * CXR: Right-sided central venous catheter extends to the cavoatrial junction. Mild left basilar atelectasis/infiltrate and or small pleural effusion. Median sternotomy wires. Cardiomegaly. Low back pain * lumbar spine XR - No abnormalities seen * flexeril 5mg TID * MRI lumbar spine - No acute fracture, spondylolysis or spondylolisthesis. No evidence of discitis/osteomyelitis. Mild degenerative disc disease at L4-5 with a posterior disc bulge and superimposed right foraminal disc protrusion. Mild right neural foraminal stenosis. No central spinal canal stenosis. Note is made of splenomegaly, perisplenic and splenorenal arises in this patient with known hepatic cirrhosis. * Advised patient to walk around as much as tolerated Hematochezia * Resolved * likely 2/2 hemorrhoid found on SMILEY * Colace TID * Patient will need out patient colonoscopy Left shoulder pain/weakness * 2/2 Hx of fall * Left shoulder XR (12/13) - no acute dislocation or fracture, soft tissues unremarkable Diarrhea * Resolved * Stool Culture/O&P (12/12) - negative for O&P, salmonella, shigella, and campylobacter * Stool negative for leukocytes and occult blood (12/12) * Serum C. diff antigen and toxin negative (12/12) * Stool C diff (Neg) and repeat leukocytes (Neg) * stool culture 12/16 negative * Patient is occasionally constipated - obstruction series ordered 12/28 was negative * Managed on PRN basis History of Seizures * Continue Keppra 500 mg PO BID * Continue Gabapentin 300 mg PO BID History of Depression * Continue Zoloft 50 mg PO daily History of Hepatitis B & C * Monitor LFTs. 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 * On old admission growth factors like Neupogen (Filgrastim) were recommended for low WBC * Heme/Onc consulted ([facility]) - recs against IV iron supplementation at this time until infection resolves, transfusion support prn, plans to review peripheral smear, BM evaluation if counts do not return to baseline * HIV 1&2 Ab screen negative * Stool negative for occult blood Prophylactic Measure * Heparin and GI ppx held due to platelets * SCDs for now * Patient has been getting up every 2 hours and performing 10 laps around the floor * Maalox 30 ml PO once a day PRN indigestion Patient placed back on Zosyn 3.375 gmQ6H due to PICC line placement, to finish antibiotics on January 23, 2017 Dr. Leyva was spoken with on the phone. Dr. Leyva said patient is okay to be discharge home. Patient will follow up with cardiology/CT surgery at [facility]. Due to ongoing LLQ pain, the decision was made to order a CT abdomen/pelvis with IV & PO contrast which resulted in the following impression: 1. Cirrhosis with the portal hypertension including splenomegaly and marked variceal formation. 2. 4 splenic infarcts 3. Wedge shaped area of low attenuation within the lower pole of the left kidney. The appearance is most suggestive of a renal infarct although mass is not excluded. This was not identified on the recent ultrasound. Recommend abdominal CT or MRI follow-up in 1 year. 4. Periportal and mesenteric adenopathy. 5. Left-sided subpleural atelectasis/consolidation 6. Right adrenal adenoma. No follow-up is necessary. 7. Small hiatal hernia 8. Nonobstructing calcification lower pole of the left kidney corresponding to the finding seen on recent ultrasound. Will discuss case with Dr. Vanda Best PGY1 <Chichi Dc V - Last Filed: 01/24/17 18:35> Objective - Vital Signs/Intake and Output Vital Signs (last 24 hours): Temp Pulse Resp BP Pulse Ox 9 F L 98 H 20 104/69 96 01/16/17 15:24 01/16/17 15:58 01/16/17 15:24 01/16/17 17:00 01/16/17 15:24 Intake and Output: 01/16/17 01/17/17 18:59 06:59 Intake Total 50 Balance 50 - Medications Medications: Current Medications Cyclobenzaprine HCl (Flexeril) 5 mg PO Q8H PRN PRN Reason: Muscle spasm Last Admin: 01/16/17 07:58 Dose: 5 mg Dicyclomine HCl (Bentyl) 20 mg PO Q8 PRN PRN Reason: ABDOMINAL PAIN Gabapentin (Neurontin) 300 mg PO BID [facility] Last Admin: 01/16/17 17:00 Dose: 300 mg Hydroxyzine HCl (Atarax) 50 mg PO Q6H PRN PRN Reason: Anxiety Last Admin: 01/15/17 09:18 Dose: 50 mg Piperacillin Sod/Tazobactam Sod (Zosyn 3.375 Gm Iv Premix) 3.375 gm in 50 mls @ 100 mls/hr IVPB Q8H [facility] Last Admin: 01/16/17 17:00 Dose: 100 mls/hr Levetiracetam (Keppra) 500 mg PO BID [facility] Last Admin: 01/16/17 17:00 Dose: 500 mg Metoprolol Tartrate (Lopressor) 25 mg PO BID [facility] Last Admin: 01/16/17 17:00 Dose: 25 mg Ondansetron HCl (Zofran Tab) 4 mg PO Q8 PRN PRN Reason: Nausea/Vomiting Potassium Chloride (K-Dur 20 Meq Er Tab) 20 meq PO DAILY [facility] Last Admin: 01/16/17 10:57 Dose: 20 meq Saccharomyces Boulardii (Florastor) 250 mg PO BID [facility] Last Admin: 01/16/17 17:00 Dose: 250 mg Sertraline HCl (Zoloft) 50 mg PO DAILY [facility] Last Admin: 01/16/17 10:57 Dose: 50 mg Trazodone HCl (Desyrel) 100 mg PO HS [facility] Last Admin: 01/15/17 23:05 Dose: Not Given - Labs Labs: 01/14/17 06:53 01/14/17 06:53 PT 14.2 SECONDS (9.7-12.2) H 12/12/16 07:08 INR 1.3 12/12/16 07:08 APTT 32 SECONDS (21-34) 12/12/16 07:08 Attending/Attestation - Attestation I have personally seen and examined this patient.: Yes I have fully participated in the care of the patient.: Yes I have reviewed all pertinent clinical information, including history, physical exam and plan: Yes Notes (Text): This is late computer entry for 01/16/2017 Patient seen, examined and case discussed with day-time resident. Patient reports left lower quadrant pain which he describes as a muscle spasm, and reports improved. Discussed CT abdomen pelvis findings with the patient. patient is aware of his renal infarct and splenic infarct secondary to his endocarditis. Patient is not in acute pain. Assessment/Plan 1) Sepsis * Criteria: WBC<4; Temp: 104 F; positive blood cultures; Lactate: 1.2 on admission * Infectious Disease (Dr. Trevino) on board * Zosyn 3.375 gm Q6H (active since 12/12/16)-->patient to complete 6 weeks of IV Abx on January; off IV abx until PICC line can be placed * Echocardiogram (12/14/16): left ventricle systolic function is normal; EF: 60- 65%, Transmital doppler flow pattern is Grade I abnormal relaxation pattern. Right ventricular systolic function is normal. Aortic valve bioprosthetic. Mobile density seen with high velocities across Aortic valve highly suspicious for aortic valve endocarditis. recommended for CASPER * Cardiology (Dr. Leyva)-->no CASPER; patient has endocarditis * Blood culture (12/12/16): Strep mitis X2 * Blood culture (12/14/16): No growth * Blood culture (12/16/16): No growth * Blood culture (01/08/17): no growth after 5 days X2 * Urine culture (12/12/16): no growth * Blood culture (01/10): no growth after 4 days * Urine culture (01/10): no growth * Femoral tip culture: no growth * Zosyn 3.375 gm Q6H (active since 12/12/16)-->patient to complete 6 weeks of IV Abx on January * s/p PICC on 01/12 * Tylenol 650 mg PO Q6 prn fever. Monitor liver function tests in light of hepatitis hx * Ct Abdomen/Pelvis IV and PO contrast (01/15/17): cirrhosis w portal hypertension including splenomegaly and marked variceal formation, 4 splenic infarcts, wedge shaped (renal infarct), periportal and mesenteric adenopathy, left sided consolidation/atelectasis, right adrenal adenoma, small hiatal hernia , nonobstructing 2) Endocarditis * Infectious Disease (Dr. Trevino) on board-->help appreciated * IV abx for 6 weeks * Cardiology (Dr. Leyva)-->no CASPER; patient has endocarditis * Echocardiogram (12/14/16): left ventricle systolic function is normal; EF: 60- 65%, Transmital doppler flow pattern is Grade I abnormal relaxation pattern. Right ventricular systolic function is normal. Aortic valve bioprosthetic. Mobile density seen with high velocities across Aortic valve highly suspicious for aortic valve endocarditis. recommended for CASPER * IV Abx: Zosyn 3.375 gm Q6H (active since 12/12/16) and Vancomycin discontinued * Blood cultures (12/12/16): Strep mitis X2 * Blood cultures (12/14/16): no growth * Risk factors: +murmur, IV drug use (2 major in Daily's Criteria) * Chest Xray (12/16/16): CXR: Right-sided central venous catheter extends to the cavoatrial junction. Mild left basilar atelectasis/infiltrate and or small pleural effusion. Median sternotomy wires. Cardiomegaly. * Resident spoke with family engagement specialist Dr. Leyva on 01/12, recommended to complete Iv abx, discharge from the hospital and to come to be admitted to [facility] to be admitted for vegetation on porcine valve. 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 Mild degenerative disc disease at L4-5 with a posterior disc bulge and superimposed right foraminal disc protrusion. Mild right neural foraminal stenosis. No central spinal canal stenosis. Note is made of splenomegaly, perisplenic and splenorenal arises in this patient with known hepatic cirrhosis. * Flexeril 5mg PO TID prn muscle spasm 6) Diarrhea * Resolved * Stool culture/O&P (12/12): negative for O&P, salmonella, shigella, and campylobacter * Stool negative for leukocytes and occult blood * Serum C. Diff antigen and toxin: negative X2 7) Constipation * Resolved * Obstructive series (12/28/16): moderate constipation * Had BM following obstructive series. * Start Colace 100mg PO bid 8) History of Seizures * Continue Keppra 500 mg PO BID * Continue Gabapentin 300 mg PO BID 9) History of Depression * Continue Zoloft 50 mg PO daily 9) History of Hepatitis B & C * Monitor LFTs. Currently WNL 10) Pancytopenia * Heme-Onc (Dr. 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 On old admission growth factors like Neupogen (Filgrastim) were recommended for low WBC. * Monitor H/H and platelets 11) Prophylactic Measure * Heparin and GI ppx held due thrombocytopenia * SCDs * Florastor 250mg PO bid Disposition: Patient complete 6 weeks of IV abx. Repeat cultures remain negative. Patient to complete IV abx on 01/23/17 and to follow-up with cardiology/thoracic at [facility] [place] discharge
[2017-01-16] MEDS: Saccharomyces Boulardi 250 mg Cap PO SCH ×2 (10:56→17:00)
[2017-01-16] MEDS: Potassium Chloride 20 mEq ER Tab PO SCH (10:57)
[2017-01-17] MEDS: Piperacill/Tazo 3.375gm in Dex 3.375 GM/50 ML BAG IVPB SCH ×3 (02:45→18:37)
[2017-01-17] MEDS: Saccharomyces Boulardi 250 mg Cap PO SCH ×2 (09:58→18:35)
[2017-01-17] MEDS: Potassium Chloride 20 mEq ER Tab PO SCH (09:58)
[2017-01-17 11:39] LABS: BASO % 0.4 % (0.0-2.0); EOS # 0.1 K/uL (0.0-0.7); EOS % 2.7 % (0.0-4.0); HEMATOCRIT 28.6 % (35.0-51.0); LYMPH # 0.6 K/uL (1.0-4.3); LYMPH % 14.4 % (20.0-40.0); MEAN CELL VOLUME 77.1 fL (80.0-94.0); MEAN CORPUSCULAR HEMOGLOBIN 25.3 pg (27.0-31.0); MEAN CORPUSCULAR HGB CONC 32.9 g/dL (33.0-37.0); MEAN PLATELET VOLUME 7.9 fL (7.2-11.7); MONO # 0.4 K/uL (0.0-0.8); MONO % 9.8 % (0.0-10.0); RED CELL DISTRIBUTION WIDTH 17.1 % (11.5-14.5); WHITE BLOOD COUNT 4.4 K/uL (4.8-10.8)
[2017-01-17 11:47] LABS: CHLORIDE 102 mmol/L (98-107)
[2017-01-17 11:48] LABS: SODIUM 140 mmol/L (132-148)
[2017-01-17 11:49] LABS: POTASSIUM 3.6 mmol/L (3.6-5.2)
[2017-01-17 11:51] LABS: ALB/GLOB RATIO 0.9 (1.0-2.1); ALKALINE PHOSPHATASE 76 U/L (38-126); ALT/SGPT 46 U/L (21-72); AST/SGOT 29 U/L (17-59); BILIRUBIN,TOTAL 0.5 mg/dL (0.2-1.3); BLOOD UREA NITROGEN 16 mg/dL (9-20); CARBON DIOXIDE 25 mmol/L (22-30); GFR AFRICAN-AMERICAN > 60; GLUCOSE,RANDOM 79 mg/dL (75-110); TOTAL PROTEIN 6.5 g/dL (6.3-8.3)
[2017-01-17 11:52] LABS: CALCIUM 8.7 mg/dl (8.6-10.4); MAGNESIUM 1.6 mg/dL (1.6-2.3); PHOSPHOROUS 3.3 mg/dL (2.5-4.5)
--- NOTE | 2017-01-17 19:37 | CP.PCM.PN ---
<Meli Foster - Last Filed: 01/17/17 19:34> Subjective - Date & Time of Evaluation Date of Evaluation: 01/17/17 Time of Evaluation: 19:34 - Subjective Subjective: Progress Note for Dr. Machado Patient seen and examined at bedside. No acute events overnight. Patient states he still has left lower abdominal pain. Patient denies diarrhea, vomiting, nausea. Objective - Vital Signs/Intake and Output Vital Signs (last 24 hours): Temp Pulse Resp BP Pulse Ox 98.5 F 91 H 20 110/64 95 01/17/17 15:00 01/17/17 15:30 01/17/17 15:00 01/17/17 18:36 01/17/17 15:00 - Medications Medications: Current Medications Cyclobenzaprine HCl (Flexeril) 5 mg PO Q8H PRN PRN Reason: Muscle spasm Last Admin: 01/17/17 18:36 Dose: 5 mg Dicyclomine HCl (Bentyl) 20 mg PO Q8 PRN PRN Reason: ABDOMINAL PAIN Gabapentin (Neurontin) 300 mg PO BID [facility] Last Admin: 01/17/17 18:35 Dose: 300 mg Hydroxyzine HCl (Atarax) 50 mg PO Q6H PRN PRN Reason: Anxiety Last Admin: 01/17/17 10:03 Dose: 50 mg Piperacillin Sod/Tazobactam Sod (Zosyn 3.375 Gm Iv Premix) 3.375 gm in 50 mls @ 100 mls/hr IVPB Q8H [facility] Last Admin: 01/17/17 18:37 Dose: 100 mls/hr Ibuprofen (Motrin Tab) 600 mg PO Q8H PRN PRN Reason: Pain, moderate (4-7) Levetiracetam (Keppra) 500 mg PO BID [facility] Last Admin: 01/17/17 18:35 Dose: 500 mg Metoprolol Tartrate (Lopressor) 25 mg PO BID [facility] Last Admin: 01/17/17 18:36 Dose: 25 mg Ondansetron HCl (Zofran Tab) 4 mg PO Q8 PRN PRN Reason: Nausea/Vomiting Potassium Chloride (K-Dur 20 Meq Er Tab) 20 meq PO DAILY [facility] Last Admin: 01/17/17 09:58 Dose: 20 meq Saccharomyces Boulardii (Florastor) 250 mg PO BID [facility] Last Admin: 01/17/17 18:35 Dose: 250 mg Sertraline HCl (Zoloft) 50 mg PO DAILY [facility] Last Admin: 01/17/17 10:06 Dose: 50 mg Trazodone HCl (Desyrel) 100 mg PO HS [facility] Last Admin: 01/16/17 22:42 Dose: 100 mg - Labs Labs: 01/17/17 11:26 01/17/17 11:26 PT 14.2 SECONDS (9.7-12.2) H 12/12/16 07:08 INR 1.3 12/12/16 07:08 APTT 32 SECONDS (21-34) 12/12/16 07:08 - Constitutional Appears: Non-toxic - Head Exam Head Exam: NORMAL INSPECTION - Eye Exam Eye Exam: EOMI, Normal appearance - ENT Exam ENT Exam: Mucous Membranes Moist - Neck Exam Neck Exam: Full ROM - Respiratory Exam Respiratory Exam: NORMAL BREATHING PATTERN. absent: Accessory Muscle Use, Respiratory Distress, Stridor - Cardiovascular Exam Cardiovascular Exam: REGULAR RHYTHM, +S1, +S2, Murmur - GI/Abdominal Exam GI & Abdominal Exam: Soft, Tenderness Additional comments: left lower quadrant tenderness to palpation no rebound tenderness - Extremities Exam Extremities Exam: Full ROM. absent: Pedal Edema - Back Exam Back Exam: CVA tenderness (L) - Neurological Exam Neurological Exam: Alert, Awake, Oriented x3 - Psychiatric Exam Psychiatric exam: Normal Affect, Normal Mood - Skin Skin Exam: Dry, Intact, Normal Color Assessment and Plan - Assessment and Plan (Free Text) Assessment: Left Lower Quadrant pain 01/16 CT abdomen/pelvis with IV and PO contrast: Cirrhosis with the portal hypertension including splenomegaly and marked variceal formation in the lower pole of the left kidney. The appearance is most suggestive of a renal infarct although mass is not excluded. This was not identified on the recent ultrasound. Recommend follow up with abdominal CT or MRI follow-up in 1 year. right adrenal adenoma. Small hiatal hernia, Nonobstructing calcification lower pole of the left kidney correlates to findings on recent ultrasound. Bacteremia Imaging 01/11 CXR: PICC line placement in appropriate position 01/10: CXR: mild venous congestion, mild right hilar prominence. s/p median sternotomy 12/12 CXR: heterogenous infiltrate at inferior Right and Mid/inferior left lung zones vs atelectasis with likely small left pleural effusion and Right central venous line terminating at the right atrium 12/13 CXR: Right IJ central venous line with tip in the SVC after adjustment and right lower lobe opacity with improvement 12/12 Echo: Mobile density seen with high velocities across AV highly suspicious for AV endocarditis, transmitral doppler flow pattern is grade 1 (abnormal relaxation pattern), LV and RV systolic function normal, EF = 60-65% Cultures: 12/12 Blood Cx: Gram positive cocci in changes - Strep mitis 12/12 Urine Cx: no growth Zosyn 3.375 gm Q6H, 12/14 Vanc 1 gm Q12H discontinued per ID Consult: Dr. Trevino , Patient was on augmentin, awaiting PICC line placement 01/12 Patient placed back on Zosyn 3.375 gmQ6H due to PICC line placement, to finish antibiotics on January 23, 2017 Tylenol 650 mg PO Q6 prn fever. Due to history of hepatitis, monitor LFTs, consider changing medication * Patient seen at [facility] in 09/[place]. Patient had TTE at that time which did NOT show vegetations on valve. Patient was also seen by psychiatry at that time as well as general surgery for abscess I&D. Will attempt to obtain patient's March [facility] medical records with information regarding valve surgery * Dr. Willson was contacted and agreed to see the patient on consult as long as Dr. Rushing (cardiology) accepts the transfer under his care * Dr. Rushing (who originally cared for the patient at [facility]) did not return any of our calls so the patient will stay here for the remainder of his antibiotic treatment. * Patient on Zosyn until Jan.23 * Blood work to be changed to Sat/Mon/Wed schedule Systolic ejection murmur * Likely 2/2 aortic valve replacement x2 * Echo 12/12 showed vegetations * Cardio consult on 12/14 (Dr. Leyva): does not recommend CASPER at this time * Positive blood culture for Strep mitis (12/12/16) * Repeat Blood Cultures 12/14/16 and 12/16/16 showed NO growth at 5 days * Cont zosyn and d/c vanc per Dr. Trevino as stated above; F/U about abx coverage for strep mitis * 01/04 Central Line removed and replaced in the left femoral vein Unable to get blood return from middle lumen (brown) - suggest line removed and changed * Hx of IV drug use/porcine valve * CT surg consult (Dr. Peralta) - says should be followed up with surgeon who did original AV replacement (Dr. Willson) * See above * F/U Medical records from [facility] - call original surgeon for AV valve replacement and see if he would like to accept the patient at [facility] * CXR: Right-sided central venous catheter extends to the cavoatrial junction. Mild left basilar atelectasis/infiltrate and or small pleural effusion. Median sternotomy wires. Cardiomegaly. Low back pain * lumbar spine XR - No abnormalities seen * flexeril 5mg TID * MRI lumbar spine - No acute fracture, spondylolysis or spondylolisthesis. No evidence of discitis/osteomyelitis. Mild degenerative disc disease at L4-5 with a posterior disc bulge and superimposed right foraminal disc protrusion. Mild right neural foraminal stenosis. No central spinal canal stenosis. Note is made of splenomegaly, perisplenic and splenorenal arises in this patient with known hepatic cirrhosis. * Advised patient to walk around as much as tolerated Hematochezia * Resolved * likely 2/2 hemorrhoid found on SMILEY * Colace TID * Patient will need out patient colonoscopy Left shoulder pain/weakness * 2/2 Hx of fall * Left shoulder XR (12/13) - no acute dislocation or fracture, soft tissues unremarkable Diarrhea * Resolved * Stool Culture/O&P (12/12) - negative for O&P, salmonella, shigella, and campylobacter * Stool negative for leukocytes and occult blood (12/12) * Serum C. diff antigen and toxin negative (12/12) * Stool C diff (Neg) and repeat leukocytes (Neg) * stool culture 12/16 negative * Patient is occasionally constipated - obstruction series ordered 12/28 was negative * Managed on PRN basis History of Seizures * Continue Keppra 500 mg PO BID * Continue Gabapentin 300 mg PO BID History of Depression * Continue Zoloft 50 mg PO daily History of Hepatitis B & C * Monitor LFTs. 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 * On old admission growth factors like Neupogen (Filgrastim) were recommended for low WBC * Heme/Onc consulted ([facility]) - recs against IV iron supplementation at this time until infection resolves, transfusion support prn, plans to review peripheral smear, BM evaluation if counts do not return to baseline * HIV 1&2 Ab screen negative * Stool negative for occult blood Prophylactic Measure * Heparin and GI ppx held due to platelets * SCDs for now * Patient has been getting up every 2 hours and performing 10 laps around the floor * Maalox 30 ml PO once a day PRN indigestion Patient placed back on Zosyn 3.375 gmQ6H Right PICC in place to finish antibiotics on January 23, 2017 Dr. Leyva was spoken with on the phone. Dr. Leyva said patient is okay to be discharge home. Patient will follow up with cardiology/CT surgery at [facility]. Meli Foster DO PGY1 <Dane Machado - Last Filed: 01/17/17 20:07> Objective - Vital Signs/Intake and Output Vital Signs (last 24 hours): Temp Pulse Resp BP Pulse Ox 98.5 F 91 H 20 110/64 95 01/17/17 15:00 01/17/17 15:30 01/17/17 15:00 01/17/17 18:36 01/17/17 15:00 - Medications Medications: Current Medications Cyclobenzaprine HCl (Flexeril) 5 mg PO Q8H PRN PRN Reason: Muscle spasm Last Admin: 01/17/17 18:36 Dose: 5 mg Dicyclomine HCl (Bentyl) 20 mg PO Q8 PRN PRN Reason: ABDOMINAL PAIN Gabapentin (Neurontin) 300 mg PO BID [facility] Last Admin: 01/17/17 18:35 Dose: 300 mg Hydroxyzine HCl (Atarax) 50 mg PO Q6H PRN PRN Reason: Anxiety Last Admin: 01/17/17 10:03 Dose: 50 mg Piperacillin Sod/Tazobactam Sod (Zosyn 3.375 Gm Iv Premix) 3.375 gm in 50 mls @ 100 mls/hr IVPB Q8H [facility] Last Admin: 01/17/17 18:37 Dose: 100 mls/hr Ibuprofen (Motrin Tab) 600 mg PO Q8H PRN PRN Reason: Pain, moderate (4-7) Levetiracetam (Keppra) 500 mg PO BID [facility] Last Admin: 01/17/17 18:35 Dose: 500 mg Metoprolol Tartrate (Lopressor) 25 mg PO BID [facility] Last Admin: 01/17/17 18:36 Dose: 25 mg Ondansetron HCl (Zofran Tab) 4 mg PO Q8 PRN PRN Reason: Nausea/Vomiting Potassium Chloride (K-Dur 20 Meq Er Tab) 20 meq PO DAILY [facility] Last Admin: 01/17/17 09:58 Dose: 20 meq Saccharomyces Boulardii (Florastor) 250 mg PO BID [facility] Last Admin: 01/17/17 18:35 Dose: 250 mg Sertraline HCl (Zoloft) 50 mg PO DAILY [facility] Last Admin: 01/17/17 10:06 Dose: 50 mg Trazodone HCl (Desyrel) 100 mg PO HS [facility] Last Admin: 01/16/17 22:42 Dose: 100 mg - Labs Labs: 01/17/17 11:26 01/17/17 11:26 PT 14.2 SECONDS (9.7-12.2) H 12/12/16 07:08 INR 1.3 12/12/16 07:08 APTT 32 SECONDS (21-34) 12/12/16 07:08 Attending/Attestation - Attestation I have personally seen and examined this patient.: Yes I have fully participated in the care of the patient.: Yes I have reviewed all pertinent clinical information, including history, physical exam and plan: Yes Notes (Text): 01/17/17 20:04 Patient was seen and examined shortly after resident. Exam, Assessment and Plan were thoroughly gone over with the resident. Also for Assessment and Plan: 1). Left Kidney Lower Pole Infarct vs. Mass As seen on CT Abdomen/Pelvis This is likely infarct considering his history of Endocarditis/Bacteremia F/U MRI Abdomen/Pelvis upon discharge through the [facility] 2). Splenic Infarct As seen on CT Abdomen/Pelvis This is likely infarct considering his history of Endocarditis/Bacteremia F/U MRI Abdomen/Pelvis upon discharge through the [facility] Please note that the pain the patient is experiencing in the LLQ is likely musculoskeletal. Each time patient is seen he is laying in awkward position in the bed side bent to the left. Dane Machado D.O.
[2017-01-18] MEDS: Piperacill/Tazo 3.375gm in Dex 3.375 GM/50 ML BAG IVPB SCH ×3 (01:37→18:54)
[2017-01-18] MEDS: Potassium Chloride 20 mEq ER Tab PO SCH (09:41)
[2017-01-18] MEDS: Saccharomyces Boulardi 250 mg Cap PO SCH ×2 (09:41→18:53)
--- NOTE | 2017-01-18 12:43 | CP.PCM.PN ---
Subjective - Date & Time of Evaluation Date of Evaluation: 01/18/17 Time of Evaluation: 12:40 - Subjective Subjective: Internal Medicine Progress note for Dr. Machado Patient seen and examined at bedside. No acute events overnight. Patient states he's feeling better. He said the pain on his left stomach is still there, but better. Patient denies headache, nausea, vomiting, diarrhea. patient is tolerating food well Objective - Vital Signs/Intake and Output Vital Signs (last 24 hours): Temp Pulse Resp BP Pulse Ox 98.4 F 100 H 17 97/70 L 94 L 01/18/17 07:15 01/18/17 10:00 01/18/17 07:15 01/18/17 09:45 01/18/17 07:15 - Medications Medications: Current Medications Cyclobenzaprine HCl (Flexeril) 5 mg PO Q8H PRN PRN Reason: Muscle spasm Last Admin: 01/18/17 08:28 Dose: 5 mg Dicyclomine HCl (Bentyl) 20 mg PO Q8 PRN PRN Reason: ABDOMINAL PAIN Gabapentin (Neurontin) 300 mg PO BID [facility] Last Admin: 01/18/17 09:41 Dose: 300 mg Hydroxyzine HCl (Atarax) 50 mg PO Q6H PRN PRN Reason: Anxiety Last Admin: 01/17/17 21:57 Dose: 50 mg Piperacillin Sod/Tazobactam Sod (Zosyn 3.375 Gm Iv Premix) 3.375 gm in 50 mls @ 100 mls/hr IVPB Q8H [facility] Last Admin: 01/18/17 09:42 Dose: 100 mls/hr Ibuprofen (Motrin Tab) 600 mg PO Q8H PRN PRN Reason: Pain, moderate (4-7) Levetiracetam (Keppra) 500 mg PO BID [facility] Last Admin: 01/18/17 09:41 Dose: 500 mg Metoprolol Tartrate (Lopressor) 25 mg PO BID [facility] Last Admin: 01/18/17 09:45 Dose: Not Given Ondansetron HCl (Zofran Tab) 4 mg PO Q8 PRN PRN Reason: Nausea/Vomiting Potassium Chloride (K-Dur 20 Meq Er Tab) 20 meq PO DAILY [facility] Last Admin: 01/18/17 09:41 Dose: 20 meq Saccharomyces Boulardii (Florastor) 250 mg PO BID [facility] Last Admin: 01/18/17 09:41 Dose: 250 mg Sertraline HCl (Zoloft) 50 mg PO DAILY [facility] Last Admin: 01/18/17 09:41 Dose: 50 mg Trazodone HCl (Desyrel) 100 mg PO HS [facility] Last Admin: 01/17/17 21:57 Dose: 100 mg - Labs Labs: 01/17/17 11:26 01/17/17 11:26 PT 14.2 SECONDS (9.7-12.2) H 12/12/16 07:08 INR 1.3 12/12/16 07:08 APTT 32 SECONDS (21-34) 12/12/16 07:08 - Constitutional Appears: Non-toxic - Eye Exam Eye Exam: EOMI, Normal appearance - ENT Exam ENT Exam: Mucous Membranes Moist - Neck Exam Neck Exam: Full ROM - GI/Abdominal Exam GI & Abdominal Exam: Soft, Tenderness Additional comments: Left lower quadrant pain. no rebound - Extremities Exam Additional comments: right picc line in place, c/d/i, no erythema, induration - Back Exam Back Exam: CVA tenderness (L), Full ROM, NORMAL INSPECTION - Neurological Exam Neurological Exam: Alert, Awake - Psychiatric Exam Psychiatric exam: Normal Affect, Normal Mood - Skin Skin Exam: Dry, Intact, Normal Color, Warm Assessment and Plan - Assessment and Plan (Free Text) Assessment: Left Lower Quadrant pain 01/16 CT abdomen/pelvis with IV and PO contrast: Cirrhosis with the portal hypertension including splenomegaly and marked variceal formation in the lower pole of the left kidney. The appearance is most suggestive of a renal infarct although mass is not excluded. This was not identified on the recent ultrasound. Recommend follow up with abdominal CT or MRI follow-up in 1 year. right adrenal adenoma. Small hiatal hernia, Nonobstructing calcification lower pole of the left kidney correlates to findings on recent ultrasound. Left kidney lower pole infarct 01/16 CT abdomen/pelvis with IV and PO contrast: suggestive of a renal infarct although mass is not excluded. upon discharge: follow up with MRI abdomen/pelvis upon discharge, with the clinic Splenic infarct 01/16 CT abdomen/pelvis with IV and PO contrast: splenic infarct found upon discharge: follow up with MRI abdomen/pelvis upon discharge, with the clinic Bacteremia Imaging 01/11 CXR: PICC line placement in appropriate position 01/10: CXR: mild venous congestion, mild right hilar prominence. s/p median sternotomy 12/12 CXR: heterogenous infiltrate at inferior Right and Mid/inferior left lung zones vs atelectasis with likely small left pleural effusion and Right central venous line terminating at the right atrium 12/13 CXR: Right IJ central venous line with tip in the SVC after adjustment and right lower lobe opacity with improvement 12/12 Echo: Mobile density seen with high velocities across AV highly suspicious for AV endocarditis, transmitral doppler flow pattern is grade 1 (abnormal relaxation pattern), LV and RV systolic function normal, EF = 60-65% Cultures: 12/12 Blood Cx: Gram positive cocci in changes - Strep mitis 12/12 Urine Cx: no growth Zosyn 3.375 gm Q6H, 12/14 Vanc 1 gm Q12H discontinued per ID Consult: Dr. Trevino , Patient was on augmentin, awaiting PICC line placement 01/12 Patient placed back on Zosyn 3.375 gmQ6H due to PICC line placement, to finish antibiotics on January 23, 2017 Tylenol 650 mg PO Q6 prn fever. Due to history of hepatitis, monitor LFTs, consider changing medication * Patient seen at [facility] in 09/2016. Patient had TTE at that time which did NOT show vegetations on valve. Patient was also seen by psychiatry at that time as well as general surgery for abscess I&D. Will attempt to obtain patient's March [facility] medical records with information regarding valve surgery * Dr. Willson was contacted and agreed to see the patient on consult as long as Dr. Rushing (cardiology) accepts the transfer under his care * Dr. Rushing (who originally cared for the patient at [facility]) did not return any of our calls so the patient will stay here for the remainder of his antibiotic treatment. * Patient on Zosyn until Jan.23 * Blood work to be changed to Sat/Mon/Wed schedule Systolic ejection murmur * Likely 2/2 aortic valve replacement x2 * Echo 12/12 showed vegetations * Cardio consult on 12/14 (Dr. Leyva): does not recommend CASPER at this time * Positive blood culture for Strep mitis (12/12/16) * Repeat Blood Cultures 12/14/16 and 12/16/16 showed NO growth at 5 days * Cont zosyn and d/c vanc per Dr. Trevino as stated above; F/U about abx coverage for strep mitis * 01/04 Central Line removed and replaced in the left femoral vein Unable to get blood return from middle lumen (brown) - suggest line removed and changed * Hx of IV drug use/porcine valve * CT surg consult (Dr. Peralta) - says should be followed up with surgeon who did original AV replacement (Dr. Willson) * See above * F/U Medical records from [facility] - call original surgeon for AV valve replacement and see if he would like to accept the patient at [facility] * CXR: Right-sided central venous catheter extends to the cavoatrial junction. Mild left basilar atelectasis/infiltrate and or small pleural effusion. Median sternotomy wires. Cardiomegaly. Low back pain * lumbar spine XR - No abnormalities seen * flexeril 5mg TID * MRI lumbar spine - No acute fracture, spondylolysis or spondylolisthesis. No evidence of discitis/osteomyelitis. Mild degenerative disc disease at L4-5 with a posterior disc bulge and superimposed right foraminal disc protrusion. Mild right neural foraminal stenosis. No central spinal canal stenosis. Note is made of splenomegaly, perisplenic and splenorenal arises in this patient with known hepatic cirrhosis. * Advised patient to walk around as much as tolerated Hematochezia * Resolved * likely 2/2 hemorrhoid found on SMILEY * Colace TID * Patient will need out patient colonoscopy Left shoulder pain/weakness * 2/2 Hx of fall * Left shoulder XR (12/13) - no acute dislocation or fracture, soft tissues unremarkable Diarrhea * Resolved * Stool Culture/O&P (12/12) - negative for O&P, salmonella, shigella, and campylobacter * Stool negative for leukocytes and occult blood (12/12) * Serum C. diff antigen and toxin negative (12/12) * Stool C diff (Neg) and repeat leukocytes (Neg) * stool culture 12/16 negative * Patient is occasionally constipated - obstruction series ordered 12/28 was negative * Managed on PRN basis History of Seizures * Continue Keppra 500 mg PO BID * Continue Gabapentin 300 mg PO BID History of Depression * Continue Zoloft 50 mg PO daily History of Hepatitis B & C * Monitor LFTs. 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 * On old admission growth factors like Neupogen (Filgrastim) were recommended for low WBC * Heme/Onc consulted ([facility]) - recs against IV iron supplementation at this time until infection resolves, transfusion support prn, plans to review peripheral smear, BM evaluation if counts do not return to baseline * HIV 1&2 Ab screen negative * Stool negative for occult blood Prophylactic Measure * Heparin and GI ppx held due to platelets * SCDs for now * Patient has been getting up every 2 hours and performing 10 laps around the floor * Maalox 30 ml PO once a day PRN indigestion Patient placed back on Zosyn 3.375 gmQ6H Right PICC in place to finish antibiotics on January 23, 2017 Dr. Leyva was spoken with on the phone. Dr. Leyva said patient is okay to be discharge home. Patient will follow up with cardiology/CT surgery at [facility]. Meli Foster DO PGY1
[2017-01-19] MEDS: Piperacill/Tazo 3.375gm in Dex 3.375 GM/50 ML BAG IVPB SCH ×3 (01:01→19:01)
[2017-01-19] MEDS: Potassium Chloride 20 mEq ER Tab PO SCH (10:18)
[2017-01-19] MEDS: Saccharomyces Boulardi 250 mg Cap PO SCH ×2 (10:19→17:46)
[2017-01-19 12:20] LABS: BASO % 1.1 % (0.0-2.0); EOS # 0.1 K/uL (0.0-0.7); EOS % 2.2 % (0.0-4.0); HEMATOCRIT 26.9 % (35.0-51.0); LYMPH # 0.4 K/uL (1.0-4.3); LYMPH % 15.6 % (20.0-40.0); MEAN CORPUSCULAR HEMOGLOBIN 25.5 pg (27.0-31.0); MEAN CORPUSCULAR HGB CONC 33.1 g/dL (33.0-37.0); MEAN PLATELET VOLUME 7.6 fL (7.2-11.7); MONO # 0.2 K/uL (0.0-0.8); NRBC % 0.1 % (0.0-2.0); WHITE BLOOD COUNT 2.4 K/uL (4.8-10.8)
[2017-01-19 12:30] LABS: CHLORIDE 106 mmol/L (98-107); POTASSIUM 3.8 mmol/L (3.6-5.2); SODIUM 140 mmol/L (132-148)
[2017-01-19 12:32] LABS: BILIRUBIN,TOTAL 0.4 mg/dL (0.2-1.3); GFR AFRICAN-AMERICAN > 60
[2017-01-19 12:33] LABS: ALB/GLOB RATIO 0.7 (1.0-2.1); ALKALINE PHOSPHATASE 70 U/L (38-126); ALT/SGPT 44 U/L (21-72); AST/SGOT 30 U/L (17-59); BLOOD UREA NITROGEN 19 mg/dL (9-20); CARBON DIOXIDE 25 mmol/L (22-30); GLUCOSE,RANDOM 87 mg/dL (75-110); TOTAL PROTEIN 6.7 g/dL (6.3-8.3)
[2017-01-19 12:34] LABS: CALCIUM 8.7 mg/dl (8.6-10.4); MAGNESIUM 1.6 mg/dL (1.6-2.3)
--- NOTE | 2017-01-19 13:03 | CP.PCM.PN ---
<Kayla Cadena - Last Filed: 01/19/17 16:54> Subjective - Date & Time of Evaluation Date of Evaluation: 01/19/17 Time of Evaluation: 07:00 - Subjective Subjective: PGY1 Medicine Progress note for Dr. Machado Patient seen and examined at bedside and in no acute distress. No acute events overnight. Patient states that the pain on his left stomach has resolved. Patient denies headache, nausea, vomiting, diarrhea. Objective - Vital Signs/Intake and Output Vital Signs (last 24 hours): Temp Pulse Resp BP Pulse Ox 98.3 F 90 21 115/69 96 01/19/17 07:46 01/19/17 07:46 01/19/17 07:46 01/19/17 10:19 01/19/17 07:46 Intake and Output: 01/19/17 01/19/17 06:59 18:59 Output Total 200 Balance -200 - Medications Medications: Current Medications Cyclobenzaprine HCl (Flexeril) 5 mg PO Q8H PRN PRN Reason: Muscle spasm Last Admin: 01/19/17 05:39 Dose: 5 mg Dicyclomine HCl (Bentyl) 20 mg PO Q8 PRN PRN Reason: ABDOMINAL PAIN Last Admin: 01/19/17 10:23 Dose: 20 mg Gabapentin (Neurontin) 300 mg PO BID [facility] Last Admin: 01/19/17 10:19 Dose: 300 mg Hydroxyzine HCl (Atarax) 50 mg PO Q6H PRN PRN Reason: Anxiety Last Admin: 01/19/17 10:24 Dose: 50 mg Piperacillin Sod/Tazobactam Sod (Zosyn 3.375 Gm Iv Premix) 3.375 gm in 50 mls @ 100 mls/hr IVPB Q8H [facility] Last Admin: 01/19/17 10:00 Dose: 100 mls/hr Ibuprofen (Motrin Tab) 600 mg PO Q8H PRN PRN Reason: Pain, moderate (4-7) Levetiracetam (Keppra) 500 mg PO BID [facility] Last Admin: 01/19/17 10:18 Dose: 500 mg Metoprolol Tartrate (Lopressor) 25 mg PO BID [facility] Last Admin: 01/19/17 10:19 Dose: 25 mg Ondansetron HCl (Zofran Tab) 4 mg PO Q8 PRN PRN Reason: Nausea/Vomiting Potassium Chloride (K-Dur 20 Meq Er Tab) 20 meq PO DAILY [facility] Last Admin: 01/19/17 10:18 Dose: 20 meq Saccharomyces Boulardii (Florastor) 250 mg PO BID [facility] Last Admin: 01/19/17 10:19 Dose: 250 mg Sertraline HCl (Zoloft) 50 mg PO DAILY [facility] Last Admin: 01/19/17 10:19 Dose: 50 mg Trazodone HCl (Desyrel) 100 mg PO HS [facility] Last Admin: 01/18/17 23:10 Dose: 100 mg - Labs Labs: 01/19/17 12:13 01/19/17 12:13 PT 14.2 SECONDS (9.7-12.2) H 12/12/16 07:08 INR 1.3 12/12/16 07:08 APTT 32 SECONDS (21-34) 12/12/16 07:08 - Constitutional Appears: Non-toxic, No Acute Distress - Head Exam Head Exam: ATRAUMATIC, NORMAL INSPECTION, NORMOCEPHALIC - Eye Exam Eye Exam: EOMI, Normal appearance - ENT Exam ENT Exam: Mucous Membranes Moist - Respiratory Exam Respiratory Exam: Clear to Ausculation Bilateral, NORMAL BREATHING PATTERN - Cardiovascular Exam Cardiovascular Exam: REGULAR RHYTHM, RRR, Murmur - GI/Abdominal Exam GI & Abdominal Exam: Soft, Normal Bowel Sounds - Extremities Exam Extremities Exam: Full ROM, Normal Inspection. absent: Pedal Edema - Neurological Exam Neurological Exam: Alert, Awake, Oriented x3 - Psychiatric Exam Psychiatric exam: Normal Affect, Normal Mood - Skin Skin Exam: Intact, Normal Color, Warm Assessment and Plan - Assessment and Plan (Free Text) Assessment: Left Lower Quadrant pain 01/16 CT abdomen/pelvis with IV and PO contrast: Cirrhosis with the portal hypertension including splenomegaly and marked variceal formation in the lower pole of the left kidney. The appearance is most suggestive of a renal infarct although mass is not excluded. This was not identified on the recent ultrasound. Recommend follow up with abdominal CT or MRI follow-up in 1 year. right adrenal adenoma. Small hiatal hernia, Nonobstructing calcification lower pole of the left kidney correlates to findings on recent ultrasound. 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 s/p median sternotomy 12/12 CXR: heterogenous infiltrate at inferior Right and Mid/inferior left lung zones vs atelectasis with likely small left pleural effusion and Right central venous line terminating at the right atrium 12/13 CXR: Right IJ central venous line with tip in the SVC after adjustment and right lower lobe opacity with improvement 12/12 Echo: Mobile density seen with high velocities across AV highly suspicious for AV endocarditis, transmitral doppler flow pattern is grade 1 (abnormal relaxation pattern), LV and RV systolic function normal, EF = 60-65% Cultures: 12/12 Blood Cx: Gram positive cocci in changes - Strep mitis 12/12 Urine Cx: no growth Zosyn 3.375 gm Q6H, 12/14 Vanc 1 gm Q12H discontinued per ID Consult: Dr. Trevino , Patient was on augmentin, awaiting PICC line placement 01/12 Patient placed back on Zosyn 3.375 gmQ6H due to PICC line placement, to finish antibiotics on January 23, 2017 Tylenol 650 mg PO Q6 prn fever. Due to history of hepatitis, monitor LFTs, consider changing medication * Patient seen at [facility] in 09/2016. Patient had TTE at that time which did NOT show vegetations on valve. Patient was also seen by psychiatry at that time as well as general surgery for abscess I&D. Will attempt to obtain patient's March [facility] medical records with information regarding valve surgery * Dr. Willson was contacted and agreed to see the patient on consult as long as Dr. Rushing (cardiology) accepts the transfer under his care * Dr. Rushing (who originally cared for the patient at [facility]) did not return any of our calls so the patient will stay here for the remainder of his antibiotic treatment. * Patient on Zosyn until Jan.23 * Blood work to be changed to Sat/Mon/Wed schedule Systolic ejection murmur * Likely 2/2 aortic valve replacement x2 * Echo 12/12 showed vegetations * Cardio consult on 12/14 (Dr. Leyva): does not recommend CASPER at this time * Positive blood culture for Strep mitis (12/12/16) * Repeat Blood Cultures 12/14/16 and 12/16/16 showed NO growth at 5 days * Cont zosyn and d/c vanc per Dr. Trevino as stated above; F/U about abx coverage for strep mitis * 01/04 Central Line removed and replaced in the left femoral vein Unable to get blood return from middle lumen (brown) - suggest line removed and changed * Hx of IV drug use/porcine valve * CT surg consult (Dr. Peralta) - says should be followed up with surgeon who did original AV replacement (Dr. Willson) * See above * F/U Medical records from [facility] - call original surgeon for AV valve replacement and see if he would like to accept the patient at [facility] * CXR: Right-sided central venous catheter extends to the cavoatrial junction. Mild left basilar atelectasis/infiltrate and or small pleural effusion. Median sternotomy wires. Cardiomegaly. Low back pain * lumbar spine XR - No abnormalities seen * flexeril 5mg TID * MRI lumbar spine - No acute fracture, spondylolysis or spondylolisthesis. No evidence of discitis/osteomyelitis. Mild degenerative disc disease at L4-5 with a posterior disc bulge and superimposed right foraminal disc protrusion. Mild right neural foraminal stenosis. No central spinal canal stenosis. Note is made of splenomegaly, perisplenic and splenorenal arises in this patient with known hepatic cirrhosis. * Advised patient to walk around as much as tolerated Hematochezia * Resolved * likely 2/2 hemorrhoid found on SMILEY * Colace TID * Patient will need out patient colonoscopy Left shoulder pain/weakness * 2/2 Hx of fall * Left shoulder XR (12/13) - no acute dislocation or fracture, soft tissues unremarkable Diarrhea * Resolved * Stool Culture/O&P (12/12) - negative for O&P, salmonella, shigella, and campylobacter * Stool negative for leukocytes and occult blood (12/12) * Serum C. diff antigen and toxin negative (12/12) * Stool C diff (Neg) and repeat leukocytes (Neg) * stool culture 12/16 negative * Patient is occasionally constipated - obstruction series ordered 12/28 was negative * Managed on PRN basis History of Seizures * Continue Keppra 500 mg PO BID * Continue Gabapentin 300 mg PO BID History of Depression * Continue Zoloft 50 mg PO daily History of Hepatitis B & C * Monitor LFTs. 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 Lyeva was spoken with on the phone. Dr. Leyva said patient is okay to be discharge home. Patient will follow up with cardiology/CT surgery at [facility]. <Dane Machado - Last Filed: 01/19/17 17:41> Objective - Vital Signs/Intake and Output Vital Signs (last 24 hours): Temp Pulse Resp BP Pulse Ox 98.3 F 90 21 115/69 96 01/19/17 07:46 01/19/17 07:46 01/19/17 07:46 01/19/17 10:19 01/19/17 07:46 Intake and Output: 01/19/17 01/19/17 06:59 18:59 Output Total 200 Balance -200 - Medications Medications: Current Medications Cyclobenzaprine HCl (Flexeril) 5 mg PO Q8H PRN PRN Reason: Muscle spasm Last Admin: 01/19/17 05:39 Dose: 5 mg Dicyclomine HCl (Bentyl) 20 mg PO Q8 PRN PRN Reason: ABDOMINAL PAIN Last Admin: 01/19/17 10:23 Dose: 20 mg Gabapentin (Neurontin) 300 mg PO BID [facility] Last Admin: 01/19/17 10:19 Dose: 300 mg Hydroxyzine HCl (Atarax) 50 mg PO Q6H PRN PRN Reason: Anxiety Last Admin: 01/19/17 10:24 Dose: 50 mg Piperacillin Sod/Tazobactam Sod (Zosyn 3.375 Gm Iv Premix) 3.375 gm in 50 mls @ 100 mls/hr IVPB Q8H [facility] Last Admin: 01/19/17 10:00 Dose: 100 mls/hr Ibuprofen (Motrin Tab) 600 mg PO Q8H PRN PRN Reason: Pain, moderate (4-7) Levetiracetam (Keppra) 500 mg PO BID [facility] Last Admin: 01/19/17 10:18 Dose: 500 mg Metoprolol Tartrate (Lopressor) 25 mg PO BID [facility] Last Admin: 01/19/17 10:19 Dose: 25 mg Ondansetron HCl (Zofran Tab) 4 mg PO Q8 PRN PRN Reason: Nausea/Vomiting Potassium Chloride (K-Dur 20 Meq Er Tab) 20 meq PO DAILY [facility] Last Admin: 01/19/17 10:18 Dose: 20 meq Saccharomyces Boulardii (Florastor) 250 mg PO BID [facility] Last Admin: 01/19/17 10:19 Dose: 250 mg Sertraline HCl (Zoloft) 50 mg PO DAILY [facility] Last Admin: 01/19/17 10:19 Dose: 50 mg Trazodone HCl (Desyrel) 100 mg PO HS [facility] Last Admin: 01/18/17 23:10 Dose: 100 mg - Labs Labs: 01/19/17 12:13 01/19/17 12:13 PT 14.2 SECONDS (9.7-12.2) H 12/12/16 07:08 INR 1.3 12/12/16 07:08 APTT 32 SECONDS (21-34) 12/12/16 07:08 Attending/Attestation - Attestation I have personally seen and examined this patient.: Yes I have fully participated in the care of the patient.: Yes I have reviewed all pertinent clinical information, including history, physical exam and plan: Yes Notes (Text): 01/19/17 17:39 Patient was seen and examined at 11 AM 01/19/17 Exam, assessment and plan were gone over with the resident. Also for Assessment and Plan: 1). HTN: Metoprolol Zosyn last dose will be on night of 01/23/17 and he will be discharged on morning of 01/24/17. Dane Machado D.O.
[2017-01-20] MEDS: Piperacill/Tazo 3.375gm in Dex 3.375 GM/50 ML BAG IVPB SCH ×3 (01:14→18:48)
--- NOTE | 2017-01-20 07:31 | CP.PCM.PN ---
<Kayla Cadena - Last Filed: 01/20/17 14:45> Subjective - Date & Time of Evaluation Date of Evaluation: 01/20/17 Time of Evaluation: 07:00 - Subjective Subjective: PGY1- Medicine Note- Dr. Machado's service Patient seen and examined at bedside and in no acute distress. Patient says his abdominal pain has completely resolved. Patient denies headache, shortness of breath, chest pain, abdominal pain, nausea, vomiting, constipation, and diarrhea. Objective - Vital Signs/Intake and Output Vital Signs (last 24 hours): Temp Pulse Resp BP Pulse Ox 97.7 F 77 20 97/58 L 95 01/20/17 04:44 01/20/17 04:44 01/20/17 04:44 01/20/17 04:44 01/19/17 17:48 Intake and Output: 01/20/17 01/20/17 06:59 18:59 Intake Total 60 Output Total 700 Balance -640 - Medications Medications: Current Medications Cyclobenzaprine HCl (Flexeril) 5 mg PO Q8H PRN PRN Reason: Muscle spasm Last Admin: 01/20/17 05:39 Dose: 5 mg Dicyclomine HCl (Bentyl) 20 mg PO Q8 PRN PRN Reason: ABDOMINAL PAIN Last Admin: 01/19/17 10:23 Dose: 20 mg Gabapentin (Neurontin) 300 mg PO BID [facility] Last Admin: 01/19/17 17:46 Dose: 300 mg Hydroxyzine HCl (Atarax) 50 mg PO Q6H PRN PRN Reason: Anxiety Last Admin: 01/19/17 22:58 Dose: 50 mg Piperacillin Sod/Tazobactam Sod (Zosyn 3.375 Gm Iv Premix) 3.375 gm in 50 mls @ 100 mls/hr IVPB Q8H [facility] Last Admin: 01/20/17 01:14 Dose: 100 mls/hr Ibuprofen (Motrin Tab) 600 mg PO Q8H PRN PRN Reason: Pain, moderate (4-7) Last Admin: 01/19/17 20:44 Dose: 600 mg Levetiracetam (Keppra) 500 mg PO BID [facility] Last Admin: 01/19/17 17:46 Dose: 500 mg Metoprolol Tartrate (Lopressor) 25 mg PO BID [facility] Last Admin: 01/19/17 17:47 Dose: 25 mg Ondansetron HCl (Zofran Tab) 4 mg PO Q8 PRN PRN Reason: Nausea/Vomiting Potassium Chloride (K-Dur 20 Meq Er Tab) 20 meq PO DAILY [facility] Last Admin: 01/19/17 10:18 Dose: 20 meq Saccharomyces Boulardii (Florastor) 250 mg PO BID [facility] Last Admin: 01/19/17 17:46 Dose: 250 mg Sertraline HCl (Zoloft) 50 mg PO DAILY [facility] Last Admin: 01/19/17 10:19 Dose: 50 mg Trazodone HCl (Desyrel) 100 mg PO HS [facility] Last Admin: 01/19/17 22:58 Dose: 100 mg - Labs Labs: 01/19/17 12:13 01/19/17 12:13 PT 14.2 SECONDS (9.7-12.2) H 12/12/16 07:08 INR 1.3 12/12/16 07:08 APTT 32 SECONDS (21-34) 12/12/16 07:08 - Constitutional Appears: Non-toxic, No Acute Distress - Head Exam Head Exam: ATRAUMATIC, NORMAL INSPECTION, NORMOCEPHALIC - Eye Exam Eye Exam: EOMI, Normal appearance - ENT Exam ENT Exam: Mucous Membranes Moist - Neck Exam Neck Exam: Full ROM. absent: Tenderness - Respiratory Exam Respiratory Exam: Clear to Ausculation Bilateral, NORMAL BREATHING PATTERN. absent: Rales, Rhonchi, Wheezes, Respiratory Distress, Stridor - Cardiovascular Exam Cardiovascular Exam: REGULAR RHYTHM, RRR, Murmur - GI/Abdominal Exam GI & Abdominal Exam: Soft, Normal Bowel Sounds. absent: Tenderness - Extremities Exam Extremities Exam: Full ROM, Normal Inspection. absent: Pedal Edema - Neurological Exam Neurological Exam: Alert, Awake, Oriented x3 - Psychiatric Exam Psychiatric exam: Normal Affect, Normal Mood - Skin Skin Exam: Intact, Normal Color, Warm Assessment and Plan - Assessment and Plan (Free Text) Assessment: Left Lower Quadrant pain 01/16 CT abdomen/pelvis with IV and PO contrast: Cirrhosis with the portal hypertension including splenomegaly and marked variceal formation in the lower pole of the left kidney. The appearance is most suggestive of a renal infarct although mass is not excluded. This was not identified on the recent ultrasound. Recommend follow up with abdominal CT or MRI follow-up in 1 year. right adrenal adenoma. Small hiatal hernia, Nonobstructing calcification lower pole of the left kidney correlates to findings on recent ultrasound. Left kidney lower pole infarct 01/16 CT abdomen/pelvis with IV and PO contrast: suggestive of a renal infarct although mass is not excluded likely secondary to Endocarditis/Bacteremia upon discharge: follow up with MRI abdomen/pelvis upon discharge, with the [facility] Splenic infarct 01/16 CT abdomen/pelvis with IV and PO contrast: splenic infarct found likely secondary to Endocarditis/Bacteremia upon discharge: follow up with MRI abdomen/pelvis upon discharge, with the [facility] Bacteremia Imaging 01/11 CXR: PICC line placement in appropriate position 01/10: CXR: mild venous congestion, mild right hilar prominence. s/p median sternotomy 12/12 CXR: heterogenous infiltrate at inferior Right and Mid/inferior left lung zones vs atelectasis with likely small left pleural effusion and Right central venous line terminating at the right atrium 12/13 CXR: Right IJ central venous line with tip in the SVC after adjustment and right lower lobe opacity with improvement 12/12 Echo: Mobile density seen with high velocities across AV highly suspicious for AV endocarditis, transmitral doppler flow pattern is grade 1 (abnormal relaxation pattern), LV and RV systolic function normal, EF = 60-65% Cultures: 12/12 Blood Cx: Gram positive cocci in changes - Strep mitis 12/12 Urine Cx: no growth Zosyn 3.375 gm Q6H, 12/14 Vanc 1 gm Q12H discontinued per ID Consult: Dr. Trevino , Patient was on augmentin, awaiting PICC line placement 01/12 Patient placed back on Zosyn 3.375 gmQ6H due to PICC line placement, to finish antibiotics on January 23, 2017 Tylenol 650 mg PO Q6 prn fever. Due to history of hepatitis, monitor LFTs, consider changing medication * Patient seen at [facility] in 09/2016. Patient had TTE at that time which did NOT show vegetations on valve. Patient was also seen by psychiatry at that time as well as general surgery for abscess I&D. Will attempt to obtain patient's March [facility] medical records with information regarding valve surgery * Dr. Willson was contacted and agreed to see the patient on consult as long as Dr. Rushing (cardiology) accepts the transfer under his care * Dr. Rushing (who originally cared for the patient at [facility]) did not return any of our calls so the patient will stay here for the remainder of his antibiotic treatment. * Patient on Zosyn until Jan.23 then discharged on Jan 24 * Blood work to be changed to Sat/Mon/Wed schedule Systolic ejection murmur * Likely 2/2 aortic valve replacement x2 * Echo 12/12 showed vegetations * Cardio consult on 12/14 (Dr. Leyva): does not recommend CASPER at this time * Positive blood culture for Strep mitis (12/12/16) * Repeat Blood Cultures 12/14/16 and 12/16/16 showed NO growth at 5 days * Cont zosyn and d/c vanc per Dr. Trevino as stated above; F/U about abx coverage for strep mitis * 01/04 Central Line removed and replaced in the left femoral vein Unable to get blood return from middle lumen (brown) - suggest line removed and changed * Hx of IV drug use/porcine valve * CT surg consult (Dr. Peralta) - says should be followed up with surgeon who did original AV replacement (Dr. Willson) * See above * F/U Medical records from [facility] - call original surgeon for AV valve replacement and see if he would like to accept the patient at [facility] * CXR: Right-sided central venous catheter extends to the cavoatrial junction. Mild left basilar atelectasis/infiltrate and or small pleural effusion. Median sternotomy wires. Cardiomegaly. HTN managed with Metoprolol 25 mg po BID Low back pain * lumbar spine XR - No abnormalities seen * flexeril 5mg TID * MRI lumbar spine - No acute fracture, spondylolysis or spondylolisthesis. No evidence of discitis/osteomyelitis. Mild degenerative disc disease at L4-5 with a posterior disc bulge and superimposed right foraminal disc protrusion. Mild right neural foraminal stenosis. No central spinal canal stenosis. Note is made of splenomegaly, perisplenic and splenorenal arises in this patient with known hepatic cirrhosis. * Advised patient to walk around as much as tolerated Hematochezia * Resolved * likely 2/2 hemorrhoid found on SMILEY * Colace TID * Patient will need out patient colonoscopy Left shoulder pain/weakness * 2/2 Hx of fall * Left shoulder XR (12/13) - no acute dislocation or fracture, soft tissues unremarkable Diarrhea * Resolved * Stool Culture/O&P (12/12) - negative for O&P, salmonella, shigella, and campylobacter * Stool negative for leukocytes and occult blood (12/12) * Serum C. diff antigen and toxin negative (12/12) * Stool C diff (Neg) and repeat leukocytes (Neg) * stool culture 12/16 negative * Patient is occasionally constipated - obstruction series ordered 12/28 was negative * Managed on PRN basis History of Seizures * Continue Keppra 500 mg PO BID * Continue Gabapentin 300 mg PO BID History of Depression * Continue Zoloft 50 mg PO daily History of Hepatitis B & C * Monitor LFTs. 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 Leyva said patient is okay to be discharge home. Patient will follow up with cardiology/CT surgery at [facility]. <Dane Machado - Last Filed: 01/20/17 16:10> Objective - Vital Signs/Intake and Output Vital Signs (last 24 hours): Temp Pulse Resp BP Pulse Ox 98.2 F 98 H 20 115/65 96 01/20/17 08:32 01/20/17 08:32 01/20/17 08:32 01/20/17 11:24 01/20/17 08:32 Intake and Output: 01/20/17 01/20/17 06:59 18:59 Intake Total 60 Output Total 700 Balance -640 - Medications Medications: Current Medications Cyclobenzaprine HCl (Flexeril) 5 mg PO Q8H PRN PRN Reason: Muscle spasm Last Admin: 01/20/17 14:45 Dose: 5 mg Dicyclomine HCl (Bentyl) 20 mg PO Q8 PRN PRN Reason: ABDOMINAL PAIN Last Admin: 01/20/17 10:58 Dose: 20 mg Gabapentin (Neurontin) 300 mg PO BID [facility] Last Admin: 01/20/17 11:24 Dose: 300 mg Hydroxyzine HCl (Atarax) 50 mg PO Q6H PRN PRN Reason: Anxiety Last Admin: 01/20/17 10:57 Dose: 50 mg Piperacillin Sod/Tazobactam Sod (Zosyn 3.375 Gm Iv Premix) 3.375 gm in 50 mls @ 100 mls/hr IVPB Q8H [facility] Last Admin: 01/20/17 10:00 Dose: 100 mls/hr Ibuprofen (Motrin Tab) 600 mg PO Q8H PRN PRN Reason: Pain, moderate (4-7) Last Admin: 01/19/17 20:44 Dose: 600 mg Levetiracetam (Keppra) 500 mg PO BID [facility] Last Admin: 01/20/17 11:24 Dose: 500 mg Metoprolol Tartrate (Lopressor) 25 mg PO BID [facility] Last Admin: 01/20/17 11:24 Dose: 25 mg Ondansetron HCl (Zofran Tab) 4 mg PO Q8 PRN PRN Reason: Nausea/Vomiting Potassium Chloride (K-Dur 20 Meq Er Tab) 20 meq PO DAILY [facility] Last Admin: 01/20/17 10:59 Dose: Not Given Saccharomyces Boulardii (Florastor) 250 mg PO BID [facility] Last Admin: 01/20/17 11:25 Dose: 250 mg Sertraline HCl (Zoloft) 50 mg PO DAILY [facility] Last Admin: 01/20/17 11:24 Dose: 50 mg Trazodone HCl (Desyrel) 100 mg PO HS [facility] Last Admin: 01/19/17 22:58 Dose: 100 mg - Labs Labs: 01/19/17 12:13 01/19/17 12:13 PT 14.2 SECONDS (9.7-12.2) H 12/12/16 07:08 INR 1.3 12/12/16 07:08 APTT 32 SECONDS (21-34) 12/12/16 07:08 Attending/Attestation - Attestation I have personally seen and examined this patient.: Yes I have fully participated in the care of the patient.: Yes I have reviewed all pertinent clinical information, including history, physical exam and plan: Yes Notes (Text): 01/20/17 16:10 Patient was seen and examined at 10:30 AM. Exam, assessment and plan were thoroughly gone over with the resident. Dane Machado D.O.
[2017-01-20] MEDS: Potassium Chloride 20 mEq ER Tab PO SCH (10:59)
[2017-01-20] MEDS: Saccharomyces Boulardi 250 mg Cap PO SCH ×2 (11:25→18:50)
[2017-01-21] MEDS: Piperacill/Tazo 3.375gm in Dex 3.375 GM/50 ML BAG IVPB SCH ×3 (02:30→18:04)
[2017-01-21 06:39] LABS: BASO % 0.9 % (0.0-2.0); EOS # 0.1 K/uL (0.0-0.7); EOS % 2.3 % (0.0-4.0); HEMATOCRIT 25.7 % (35.0-51.0); LYMPH # 0.4 K/uL (1.0-4.3); LYMPH % 16.4 % (20.0-40.0); MEAN CELL VOLUME 77.8 fL (80.0-94.0); MEAN CORPUSCULAR HEMOGLOBIN 25.6 pg (27.0-31.0); MEAN CORPUSCULAR HGB CONC 32.9 g/dL (33.0-37.0); MEAN PLATELET VOLUME 7.5 fL (7.2-11.7); MONO # 0.2 K/uL (0.0-0.8); MONO % 8.1 % (0.0-10.0); RED CELL DISTRIBUTION WIDTH 16.6 % (11.5-14.5); WHITE BLOOD COUNT 2.5 K/uL (4.8-10.8)
[2017-01-21 07:10] LABS: CHLORIDE 103 mmol/L (98-107)
[2017-01-21 07:11] LABS: POTASSIUM 3.8 mmol/L (3.6-5.2); SODIUM 135 mmol/L (132-148)
[2017-01-21 07:13] LABS: ALKALINE PHOSPHATASE 67 U/L (38-126); ALT/SGPT 44 U/L (21-72); AST/SGOT 44 U/L (17-59); BILIRUBIN,TOTAL 0.5 mg/dL (0.2-1.3); BLOOD UREA NITROGEN 16 mg/dL (9-20); CARBON DIOXIDE 24 mmol/L (22-30); GFR AFRICAN-AMERICAN > 60; GLUCOSE,RANDOM 85 mg/dL (75-110); TOTAL PROTEIN 6.3 g/dL (6.3-8.3)
[2017-01-21 07:14] LABS: CALCIUM 8.4 mg/dl (8.6-10.4); MAGNESIUM 1.6 mg/dL (1.6-2.3); PHOSPHOROUS 3.5 mg/dL (2.5-4.5)
[2017-01-21 07:24] LABS: ALB/GLOB RATIO 0.9 (1.0-2.1)
[2017-01-21] MEDS: Potassium Chloride 20 mEq ER Tab PO SCH (10:31)
[2017-01-21] MEDS: Saccharomyces Boulardi 250 mg Cap PO SCH ×2 (10:32→18:02)
--- NOTE | 2017-01-21 13:42 | CP.PCM.PN ---
Addendum entered and electronically signed by Meli Foster DO 01/21/17 13:45: Please ignore assessment and plan Addenum to assessment and plan is as follows Left Lower Quadrant pain 01/16 CT abdomen/pelvis with IV and PO contrast: Cirrhosis with the portal hypertension including splenomegaly and marked variceal formation in the lower pole of the left kidney. The appearance is most suggestive of a renal infarct although mass is not excluded. This was not identified on the recent ultrasound. Recommend follow up with abdominal CT or MRI follow-up in 1 year. right adrenal adenoma. Small hiatal hernia, Nonobstructing calcification lower pole of the left kidney correlates to findings on recent ultrasound. 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 s/p median sternotomy 12/12 CXR: heterogenous infiltrate at inferior Right and Mid/inferior left lung zones vs atelectasis with likely small left pleural effusion and Right central venous line terminating at the right atrium 12/13 CXR: Right IJ central venous line with tip in the SVC after adjustment and right lower lobe opacity with improvement 12/12 Echo: Mobile density seen with high velocities across AV highly suspicious for AV endocarditis, transmitral doppler flow pattern is grade 1 (abnormal relaxation pattern), LV and RV systolic function normal, EF = 60-65% Cultures: 12/12 Blood Cx: Gram positive cocci in changes - Strep mitis 12/12 Urine Cx: no growth Zosyn 3.375 gm Q6H, 12/14 Vanc 1 gm Q12H discontinued per ID Consult: Dr. Trevino , Patient was on augmentin, awaiting PICC line placement 01/12 Patient placed back on Zosyn 3.375 gmQ6H due to PICC line placement, to finish antibiotics on January 23, 2017 Tylenol 650 mg PO Q6 prn fever. Due to history of hepatitis, monitor LFTs, consider changing medication * Patient seen at [facility] [place]. Patient had TTE at that time which did NOT show vegetations on valve. Patient was also seen by psychiatry at that time as well as general surgery for abscess I&D. Will attempt to obtain patient's March [facility] medical records with information regarding valve surgery * Dr. Willson was contacted and agreed to see the patient on consult as long as Dr. Rushing (cardiology) accepts the transfer under his care * Dr. Rushing (who originally cared for the patient at [facility]) did not return any of our calls so the patient will stay here for the remainder of his antibiotic treatment. * Patient on Zosyn until Jan.23 then discharged on Jan 24 * Blood work to be changed to Sat/Tue/Tue schedule Systolic ejection murmur * Likely 2/2 aortic valve replacement x2 * Echo 12/12 showed vegetations * Cardio consult on 12/14 (Dr. Leyva): does not recommend CASPER at this time * Positive blood culture for Strep mitis (12/12/16) * Repeat Blood Cultures 12/14/16 and 12/16/16 showed NO growth at 5 days * Cont zosyn and d/c vanc per Dr. Trevino as stated above; F/U about abx coverage for strep mitis * 01/04 Central Line removed and replaced in the left femoral vein Unable to get blood return from middle lumen (brown) - suggest line removed and changed * Hx of IV drug use/porcine valve * CT surg consult (Dr. Peralta) - says should be followed up with surgeon who did original AV replacement (Dr. Willson) * See above * F/U Medical records from [facility] - call original surgeon for AV valve replacement and see if he would like to accept the patient at [facility] * CXR: Right-sided central venous catheter extends to the cavoatrial junction. Mild left basilar atelectasis/infiltrate and or small pleural effusion. Median sternotomy wires. Cardiomegaly. HTN managed with Metoprolol 25 mg po BID Chest pain STAT EKG 01/20: no ST elevations Troponin I 0.02, CKMB 0.45, Creatinine kinase <20 Low back pain * lumbar spine XR - No abnormalities seen * flexeril 5mg TID * MRI lumbar spine - No acute fracture, spondylolysis or spondylolisthesis. No evidence of discitis/osteomyelitis. Mild degenerative disc disease at L4-5 with a posterior disc bulge and superimposed right foraminal disc protrusion. Mild right neural foraminal stenosis. No central spinal canal stenosis. Note is made of splenomegaly, perisplenic and splenorenal arises in this patient with known hepatic cirrhosis. * Advised patient to walk around as much as tolerated Hematochezia * Resolved * likely 2/2 hemorrhoid found on SMILEY * Colace TID * Patient will need out patient colonoscopy Left shoulder pain/weakness * 2/2 Hx of fall * Left shoulder XR (12/13) - no acute dislocation or fracture, soft tissues unremarkable Diarrhea * Resolved * Stool Culture/O&P (12/12) - negative for O&P, salmonella, shigella, and campylobacter * Stool negative for leukocytes and occult blood (12/12) * Serum C. diff antigen and toxin negative (12/12) * Stool C diff (Neg) and repeat leukocytes (Neg) * stool culture 12/16 negative * Patient is occasionally constipated - obstruction series ordered 12/28 was negative * Managed on PRN basis History of Seizures * Continue Keppra 500 mg PO BID * Continue Gabapentin 300 mg PO BID History of Depression * Continue Zoloft 50 mg PO daily History of Hepatitis B & C * Monitor LFTs. 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 Leyva said patient is okay to be discharge home. Patient will follow up with cardiology/CT surgery at [facility]. Original Note: <Meli Foster - Last Filed: 01/21/17 13:38> Subjective - Date & Time of Evaluation Date of Evaluation: 01/21/17 Time of Evaluation: 13:38 - Subjective Subjective: Internal Medicine Note for Dr. Machado Patient seen and examined at bedside. Patient had chest pain overnight. EKG ordered, no ST elevations. Patient does not complain of any chest pain now. Patient states he feels fine and his left lower quadrant pain is better, but he still feels it. Objective - Vital Signs/Intake and Output Vital Signs (last 24 hours): Temp Pulse Resp BP Pulse Ox 98.3 F 89 20 101/64 98 01/21/17 08:25 01/21/17 08:25 01/21/17 08:25 01/21/17 10:43 01/21/17 08:25 Intake and Output: 01/21/17 01/21/17 06:59 18:59 Intake Total 50 Output Total 400 Balance -350 - Medications Medications: Current Medications Cyclobenzaprine HCl (Flexeril) 5 mg PO Q8H PRN PRN Reason: Muscle spasm Last Admin: 01/21/17 06:25 Dose: 5 mg Dicyclomine HCl (Bentyl) 20 mg PO Q8 PRN PRN Reason: ABDOMINAL PAIN Last Admin: 01/20/17 10:58 Dose: 20 mg Gabapentin (Neurontin) 300 mg PO BID [facility] Last Admin: 01/21/17 10:40 Dose: 300 mg Hydroxyzine HCl (Atarax) 50 mg PO Q6H PRN PRN Reason: Anxiety Last Admin: 01/20/17 10:57 Dose: 50 mg Piperacillin Sod/Tazobactam Sod (Zosyn 3.375 Gm Iv Premix) 3.375 gm in 50 mls @ 100 mls/hr IVPB Q8H [facility] Last Admin: 01/21/17 10:42 Dose: 100 mls/hr Ibuprofen (Motrin Tab) 600 mg PO Q8H PRN PRN Reason: Pain, moderate (4-7) Last Admin: 01/19/17 20:44 Dose: 600 mg Levetiracetam (Keppra) 500 mg PO BID [facility] Last Admin: 01/21/17 10:32 Dose: 500 mg Metoprolol Tartrate (Lopressor) 25 mg PO BID [facility] Last Admin: 10/06/17 10:43 Dose: Not Given Ondansetron HCl (Zofran Tab) 4 mg PO Q8 PRN PRN Reason: Nausea/Vomiting Potassium Chloride (K-Dur 20 Meq Er Tab) 20 meq PO DAILY [facility] Last Admin: 01/21/17 10:31 Dose: 20 meq Saccharomyces Boulardii (Florastor) 250 mg PO BID [facility] Last Admin: 01/21/17 10:32 Dose: 250 mg Sertraline HCl (Zoloft) 50 mg PO DAILY [facility] Last Admin: 01/21/17 10:32 Dose: 50 mg Trazodone HCl (Desyrel) 100 mg PO HS [facility] Last Admin: 01/20/17 22:33 Dose: 100 mg - Labs Labs: 01/21/17 06:30 01/21/17 06:30 PT 14.2 SECONDS (9.7-12.2) H 12/12/16 07:08 INR 1.3 12/12/16 07:08 APTT 32 SECONDS (21-34) 12/12/16 07:08 - Constitutional Appears: Non-toxic - Head Exam Head Exam: NORMAL INSPECTION - Eye Exam Eye Exam: EOMI, Normal appearance - ENT Exam ENT Exam: Mucous Membranes Moist - Neck Exam Neck Exam: Full ROM. absent: Tenderness - Respiratory Exam Respiratory Exam: NORMAL BREATHING PATTERN. absent: Accessory Muscle Use, Respiratory Distress - Cardiovascular Exam Cardiovascular Exam: REGULAR RHYTHM, +S1, +S2. absent: Bradycardia, Tachycardia - GI/Abdominal Exam GI & Abdominal Exam: Soft, Tenderness Additional comments: LLQ pain tenderness CVA tenderness - Extremities Exam Extremities Exam: Full ROM, Normal Inspection. absent: Pedal Edema - Neurological Exam Neurological Exam: Alert, Awake, Normal Gait, Oriented x3 - Psychiatric Exam Psychiatric exam: Normal Affect, Normal Mood - Skin Skin Exam: Dry, Intact, Normal Color, Warm Assessment and Plan - Assessment and Plan (Free Text) Assessment: Left Lower Quadrant pain 01/16 CT abdomen/pelvis with IV and PO contrast: Cirrhosis with the portal hypertension including splenomegaly and marked variceal formation in the lower pole of the left kidney. The appearance is most suggestive of a renal infarct although mass is not excluded. This was not identified on the recent ultrasound. Recommend follow up with abdominal CT or MRI follow-up in 1 year. right adrenal adenoma. Small hiatal hernia, Nonobstructing calcification lower pole of the left kidney correlates to findings on recent ultrasound. 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 s/p median sternotomy 12/12 CXR: heterogenous infiltrate at inferior Right and Mid/inferior left lung zones vs atelectasis with likely small left pleural effusion and Right central venous line terminating at the right atrium 12/13 CXR: Right IJ central venous line with tip in the SVC after adjustment and right lower lobe opacity with improvement 12/12 Echo: Mobile density seen with high velocities across AV highly suspicious for AV endocarditis, transmitral doppler flow pattern is grade 1 (abnormal relaxation pattern), LV and RV systolic function normal, EF = 60-65% Cultures: 12/12 Blood Cx: Gram positive cocci in changes - Strep mitis 12/12 Urine Cx: no growth Zosyn 3.375 gm Q6H, 12/14 Vanc 1 gm Q12H discontinued per ID Consult: Dr. Trevino , Patient was on augmentin, awaiting PICC line placement 01/12 Patient placed back on Zosyn 3.375 gmQ6H due to PICC line placement, to finish antibiotics on January 23, 2017 Tylenol 650 mg PO Q6 prn fever. Due to history of hepatitis, monitor LFTs, consider changing medication * Patient seen at [facility] [place]. Patient had TTE at that time which did NOT show vegetations on valve. Patient was also seen by psychiatry at that time as well as general surgery for abscess I&D. Will attempt to obtain patient's [place] [facility] medical records with information regarding valve surgery * Dr. Willson was contacted and agreed to see the patient on consult as long as Dr. Rushing (cardiology) accepts the transfer under his care * Dr. Rushing (who originally cared for the patient at [facility]) did not return any of our calls so the patient will stay here for the remainder of his antibiotic treatment. * Patient on Zosyn until Jan.23 then discharged on Jan 24 * Blood work to be changed to Sat/Tue/Tue schedule Systolic ejection murmur * Likely 2/2 aortic valve replacement x2 * Echo 12/12 showed vegetations * Cardio consult on 12/14 (Dr. Leyva): does not recommend CASPER at this time * Positive blood culture for Strep mitis (12/12/16) * Repeat Blood Cultures 12/14/16 and 12/16/16 showed NO growth at 5 days * Cont zosyn and d/c vanc per Dr. Trevino as stated above; F/U about abx coverage for strep mitis * 01/04 Central Line removed and replaced in the left femoral vein Unable to get blood return from middle lumen (brown) - suggest line removed and changed * Hx of IV drug use/porcine valve * CT surg consult (Dr. Peralta) - says should be followed up with surgeon who did original AV replacement (Dr. Willson) * See above * F/U Medical records from [facility] - call original surgeon for AV valve replacement and see if he would like to accept the patient at [facility] * CXR: Right-sided central venous catheter extends to the cavoatrial junction. Mild left basilar atelectasis/infiltrate and or small pleural effusion. Median sternotomy wires. Cardiomegaly. HTN managed with Metoprolol 25 mg po BID Low back pain * lumbar spine XR - No abnormalities seen * flexeril 5mg TID * MRI lumbar spine - No acute fracture, spondylolysis or spondylolisthesis. No evidence of discitis/osteomyelitis. Mild degenerative disc disease at L4-5 with a posterior disc bulge and superimposed right foraminal disc protrusion. Mild right neural foraminal stenosis. No central spinal canal stenosis. Note is made of splenomegaly, perisplenic and splenorenal arises in this patient with known hepatic cirrhosis. * Advised patient to walk around as much as tolerated Hematochezia * Resolved * likely 2/2 hemorrhoid found on SMILEY * Colace TID * Patient will need out patient colonoscopy Left shoulder pain/weakness * 2/2 Hx of fall * Left shoulder XR (12/13) - no acute dislocation or fracture, soft tissues unremarkable Diarrhea * Resolved * Stool Culture/O&P (12/12) - negative for O&P, salmonella, shigella, and campylobacter * Stool negative for leukocytes and occult blood (12/12) * Serum C. diff antigen and toxin negative (12/12) * Stool C diff (Neg) and repeat leukocytes (Neg) * stool culture 12/16 negative * Patient is occasionally constipated - obstruction series ordered 12/28 was negative * Managed on PRN basis History of Seizures * Continue Keppra 500 mg PO BID * Continue Gabapentin 300 mg PO BID History of Depression * Continue Zoloft 50 mg PO daily History of Hepatitis B & C * Monitor LFTs. 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 Leyva said patient is okay to be discharge home. Patient will follow up with cardiology/CT surgery at [facility]. <Dane Machado - Last Filed: 01/21/17 16:58> Objective - Vital Signs/Intake and Output Vital Signs (last 24 hours): Temp Pulse Resp BP Pulse Ox 98.3 F 100 H 20 101/64 98 01/21/17 08:25 01/21/17 08:33 01/21/17 08:25 01/21/17 10:43 01/21/17 08:25 Intake and Output: 01/21/17 01/21/17 06:59 18:59 Intake Total 50 Output Total 400 Balance -350 - Medications Medications: Current Medications Cyclobenzaprine HCl (Flexeril) 5 mg PO Q8H PRN PRN Reason: Muscle spasm Last Admin: 01/21/17 14:31 Dose: 5 mg Dicyclomine HCl (Bentyl) 20 mg PO Q8 PRN PRN Reason: ABDOMINAL PAIN Last Admin: 01/20/17 10:58 Dose: 20 mg Gabapentin (Neurontin) 300 mg PO BID [facility] Last Admin: 01/21/17 10:40 Dose: 300 mg Hydroxyzine HCl (Atarax) 50 mg PO Q6H PRN PRN Reason: Anxiety Last Admin: 01/20/17 10:57 Dose: 50 mg Piperacillin Sod/Tazobactam Sod (Zosyn 3.375 Gm Iv Premix) 3.375 gm in 50 mls @ 100 mls/hr IVPB Q8H [facility] Last Admin: 01/21/17 10:42 Dose: 100 mls/hr Ibuprofen (Motrin Tab) 600 mg PO Q8H PRN PRN Reason: Pain, moderate (4-7) Last Admin: 01/19/17 20:44 Dose: 600 mg Levetiracetam (Keppra) 500 mg PO BID [facility] Last Admin: 01/21/17 10:32 Dose: 500 mg Metoprolol Tartrate (Lopressor) 25 mg PO BID [facility] Last Admin: 01/21/17 10:43 Dose: Not Given Ondansetron HCl (Zofran Tab) 4 mg PO Q8 PRN PRN Reason: Nausea/Vomiting Potassium Chloride (K-Dur 20 Meq Er Tab) 20 meq PO DAILY [facility] Last Admin: 01/21/17 10:31 Dose: 20 meq Saccharomyces Boulardii (Florastor) 250 mg PO BID [facility] Last Admin: 01/21/17 10:32 Dose: 250 mg Sertraline HCl (Zoloft) 50 mg PO DAILY [facility] Last Admin: 01/21/17 10:32 Dose: 50 mg Trazodone HCl (Desyrel) 100 mg PO HS [facility] Last Admin: 01/20/17 22:33 Dose: 100 mg - Labs Labs: 01/21/17 06:30 01/21/17 06:30 PT 14.2 SECONDS (9.7-12.2) H 12/12/16 07:08 INR 1.3 12/12/16 07:08 APTT 32 SECONDS (21-34) 12/12/16 07:08 Attending/Attestation - Attestation I have personally seen and examined this patient.: Yes I have fully participated in the care of the patient.: Yes I have reviewed all pertinent clinical information, including history, physical exam and plan: Yes Notes (Text): 01/21/17 16:40 Patient was seen and examined at 7:45 AM 01/21/17. Exam, Assessment and Plan were thoroughly gone over with the resident. Upon ROS: episode of left sided chest pain non-radiating at 8:30 PM last night "like someone grabbing my chest". It was not associated with SOB, lightheadedness/dizziness, NO paresthesias. For discharge on Tuesday01/24/17. Dane Machado D.O.
[2017-01-22] MEDS: Piperacill/Tazo 3.375gm in Dex 3.375 GM/50 ML BAG IVPB SCH ×3 (01:15→18:01)
[2017-01-22] MEDS: Saccharomyces Boulardi 250 mg Cap PO SCH ×2 (09:27→18:01)
[2017-01-22] MEDS: Potassium Chloride 20 mEq ER Tab PO SCH (09:28)
--- NOTE | 2017-01-22 10:11 | CP.PCM.PN ---
Subjective - Date & Time of Evaluation Date of Evaluation: 01/22/17 Time of Evaluation: 10:09 - Subjective Subjective: Internal Medicine Progress note for Dr. Jackelyn Machado Patient seen and examined at bedside. No acute events overnight. Patient denies left lower quadrant pain. Patient is seen eating breakfast. Patient has no complaints. Patient stated he showered yesterday. He said he's waiting to shower today. Patient admits to night sweats, but no more than usual. Patient denies chest pain, shortness of breath, abdominal pain, issues with bowel movement Objective - Vital Signs/Intake and Output Vital Signs (last 24 hours): Temp Pulse Resp BP Pulse Ox 98.1 F 91 H 18 120/72 97 01/22/17 07:15 01/22/17 07:15 01/22/17 07:15 01/22/17 09:27 01/22/17 07:15 Intake and Output: 01/22/17 01/22/17 06:59 18:59 Intake Total 700 Output Total 750 Balance -50 - Medications Medications: Current Medications Cyclobenzaprine HCl (Flexeril) 5 mg PO Q8H PRN PRN Reason: Muscle spasm Last Admin: 01/22/17 09:29 Dose: 5 mg Dicyclomine HCl (Bentyl) 20 mg PO Q8 PRN PRN Reason: ABDOMINAL PAIN Last Admin: 01/20/17 10:58 Dose: 20 mg Gabapentin (Neurontin) 300 mg PO BID [facility] Last Admin: 01/22/17 09:27 Dose: 300 mg Hydroxyzine HCl (Atarax) 50 mg PO Q6H PRN PRN Reason: Anxiety Last Admin: 01/20/17 10:57 Dose: 50 mg Piperacillin Sod/Tazobactam Sod (Zosyn 3.375 Gm Iv Premix) 3.375 gm in 50 mls @ 100 mls/hr IVPB Q8H [facility] Last Admin: 01/22/17 09:45 Dose: 100 mls/hr Ibuprofen (Motrin Tab) 600 mg PO Q8H PRN PRN Reason: Pain, moderate (4-7) Last Admin: 01/19/17 20:44 Dose: 600 mg Levetiracetam (Keppra) 500 mg PO BID [facility] Last Admin: 01/22/17 09:27 Dose: 500 mg Metoprolol Tartrate (Lopressor) 25 mg PO BID [facility] Last Admin: 01/22/17 09:27 Dose: 25 mg Ondansetron HCl (Zofran Tab) 4 mg PO Q8 PRN PRN Reason: Nausea/Vomiting Potassium Chloride (K-Dur 20 Meq Er Tab) 20 meq PO DAILY [facility] Last Admin: 01/22/17 09:28 Dose: Not Given Saccharomyces Boulardii (Florastor) 250 mg PO BID [facility] Last Admin: 01/22/17 09:27 Dose: 250 mg Sertraline HCl (Zoloft) 50 mg PO DAILY [facility] Last Admin: 01/22/17 09:27 Dose: 50 mg Trazodone HCl (Desyrel) 100 mg PO HS [facility] Last Admin: 01/21/17 22:33 Dose: 100 mg - Labs Labs: 01/21/17 06:30 01/21/17 06:30 PT 14.2 SECONDS (9.7-12.2) H 12/12/16 07:08 INR 1.3 12/12/16 07:08 APTT 32 SECONDS (21-34) 12/12/16 07:08 - Constitutional Appears: Non-toxic - Head Exam Head Exam: NORMAL INSPECTION - Eye Exam Eye Exam: EOMI, Normal appearance - ENT Exam ENT Exam: Mucous Membranes Moist - Neck Exam Neck Exam: Full ROM - Respiratory Exam Respiratory Exam: NORMAL BREATHING PATTERN. absent: Accessory Muscle Use, Respiratory Distress - Cardiovascular Exam Cardiovascular Exam: REGULAR RHYTHM, +S1, +S2, Murmur - GI/Abdominal Exam GI & Abdominal Exam: Soft. absent: Tenderness - Extremities Exam Extremities Exam: Full ROM. absent: Pedal Edema - Back Exam Back Exam: Full ROM, NORMAL INSPECTION - Neurological Exam Neurological Exam: Alert, Awake, Oriented x3 - Psychiatric Exam Psychiatric exam: Normal Affect, Normal Mood - Skin Skin Exam: Dry, Intact, Normal Color, Warm Assessment and Plan - Assessment and Plan (Free Text) Assessment: Left Lower Quadrant pain, resolved 01/22 01/16 CT abdomen/pelvis with IV and PO contrast: Cirrhosis with the portal hypertension including splenomegaly and marked variceal formation in the lower pole of the left kidney. The appearance is most suggestive of a renal infarct although mass is not excluded. This was not identified on the recent ultrasound. Recommend follow up with abdominal CT or MRI follow-up in 1 year. right adrenal adenoma. Small hiatal hernia, Nonobstructing calcification lower pole of the left kidney correlates to findings on recent ultrasound. 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 s/p median sternotomy 12/12 CXR: heterogenous infiltrate at inferior Right and Mid/inferior left lung zones vs atelectasis with likely small left pleural effusion and Right central venous line terminating at the right atrium 12/13 CXR: Right IJ central venous line with tip in the SVC after adjustment and right lower lobe opacity with improvement 12/12 Echo: Mobile density seen with high velocities across AV highly suspicious for AV endocarditis, transmitral doppler flow pattern is grade 1 (abnormal relaxation pattern), LV and RV systolic function normal, EF = 60-65% Cultures: 12/12 Blood Cx: Gram positive cocci in changes - Strep mitis 12/12 Urine Cx: no growth Zosyn 3.375 gm Q6H, 12/14 Vanc 1 gm Q12H discontinued per ID Consult: Dr. Trevino , Patient was on augmentin, awaiting PICC line placement 01/12 Patient placed back on Zosyn 3.375 gmQ6H due to PICC line placement, to finish antibiotics on January 23, 2017 Tylenol 650 mg PO Q6 prn fever. Due to history of hepatitis, monitor LFTs, consider changing medication * Patient seen at [facility] in 09/2016. Patient had TTE at that time which did NOT show vegetations on valve. Patient was also seen by psychiatry at that time as well as general surgery for abscess I&D. Will attempt to obtain patient's March [facility] medical records with information regarding valve surgery * Dr. Willson was contacted and agreed to see the patient on consult as long as Dr. Rushing (cardiology) accepts the transfer under his care * Dr. Rushing (who originally cared for the patient at [facility]) did not return any of our calls so the patient will stay here for the remainder of his antibiotic treatment. * Patient on Zosyn until Jan.23 then discharged on Jan 24, one more day of antibiotic medication * Blood work to be changed to Sat/Mon/Wed schedule Systolic ejection murmur * Likely 2/2 aortic valve replacement x2 * Echo 12/12 showed vegetations * Cardio consult on 12/14 (Dr. Leyva): does not recommend CASPER at this time * Positive blood culture for Strep mitis (12/12/16) * Repeat Blood Cultures 12/14/16 and 12/16/16 showed NO growth at 5 days * Cont zosyn and d/c vanc per Dr. Trevino as stated above; F/U about abx coverage for strep mitis * 01/04 Central Line removed and replaced in the left femoral vein Unable to get blood return from middle lumen (brown) - suggest line removed and changed * Hx of IV drug use/porcine valve * CT surg consult (Dr. Peralta) - says should be followed up with surgeon who did original AV replacement (Dr. Willson) * See above * F/U Medical records from [facility] - call original surgeon for AV valve replacement and see if he would like to accept the patient at [facility] * CXR: Right-sided central venous catheter extends to the cavoatrial junction. Mild left basilar atelectasis/infiltrate and or small pleural effusion. Median sternotomy wires. Cardiomegaly. HTN continue with Metoprolol 25 mg po BID Chest pain STAT EKG 01/20: no ST elevations Total Creatine Kinase <20 CKMB 0.35 Troponin I, Quant <0.0120 Low back pain * lumbar spine XR - No abnormalities seen * flexeril 5mg TID * MRI lumbar spine - No acute fracture, spondylolysis or spondylolisthesis. No evidence of discitis/osteomyelitis. Mild degenerative disc disease at L4-5 with a posterior disc bulge and superimposed right foraminal disc protrusion. Mild right neural foraminal stenosis. No central spinal canal stenosis. Note is made of splenomegaly, perisplenic and splenorenal arises in this patient with known hepatic cirrhosis. * Advised patient to walk around as much as tolerated Hematochezia * Resolved * likely 2/2 hemorrhoid found on SMILEY * Colace TID * Patient will need out patient colonoscopy Left shoulder pain/weakness * 2/2 Hx of fall * 12/13 Left shoulder XR: no acute dislocation or fracture, soft tissues unremarkable Diarrhea * Resolved * 12/12 Stool Culture/O&P - negative for O&P, salmonella, shigella, and campylobacter * 12/12 Stool negative for leukocytes and occult blood * 12/12 Serum C. diff antigen and toxin negative * Stool C diff (Neg) and repeat leukocytes (Neg) * 12/16 stool culture negative * Patient is occasionally constipated - obstruction series ordered 12/28 was negative * Managed on PRN basis History of Seizures * Continue Keppra 500 mg PO BID * Continue Gabapentin 300 mg PO BID History of Depression * Continue Zoloft 50 mg PO daily History of Hepatitis B & C * Monitor LFTs. 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 Leyva said patient is okay to be discharge home. Patient will follow up with cardiology/CT surgery at [facility]. Meli Foster DO PGY1
[2017-01-23] MEDS: Piperacill/Tazo 3.375gm in Dex 3.375 GM/50 ML BAG IVPB SCH ×3 (01:32→17:28)
--- NOTE | 2017-01-23 08:24 | CP.PCM.PN ---
<Dominguez Negron - Last Filed: 01/23/17 08:21> Subjective - Date & Time of Evaluation Date of Evaluation: 01/23/17 Time of Evaluation: 08:21 - Subjective Subjective: PGY [address] Rand Machado Patient seen and examined at bedside. No acute events overnight. Patient has no complaints at this time. Objective - Vital Signs/Intake and Output Vital Signs (last 24 hours): Temp Pulse Resp BP Pulse Ox 98.2 F 93 H 20 115/51 L 94 L 01/22/17 23:36 01/22/17 23:36 01/22/17 23:36 01/22/17 23:36 01/22/17 23:36 - Medications Medications: Current Medications Cyclobenzaprine HCl (Flexeril) 5 mg PO Q8H PRN PRN Reason: Muscle spasm Last Admin: 01/23/17 06:08 Dose: 5 mg Dicyclomine HCl (Bentyl) 20 mg PO Q8 PRN PRN Reason: ABDOMINAL PAIN Last Admin: 01/20/17 10:58 Dose: 20 mg Gabapentin (Neurontin) 300 mg PO BID [facility] Last Admin: 01/22/17 18:01 Dose: 300 mg Hydroxyzine HCl (Atarax) 50 mg PO Q6H PRN PRN Reason: Anxiety Last Admin: 01/22/17 23:30 Dose: 50 mg Piperacillin Sod/Tazobactam Sod (Zosyn 3.375 Gm Iv Premix) 3.375 gm in 50 mls @ 100 mls/hr IVPB Q8H [facility] Last Admin: 01/23/17 01:32 Dose: 100 mls/hr Ibuprofen (Motrin Tab) 600 mg PO Q8H PRN PRN Reason: Pain, moderate (4-7) Last Admin: 01/19/17 20:44 Dose: 600 mg Levetiracetam (Keppra) 500 mg PO BID [facility] Last Admin: 01/22/17 18:00 Dose: 500 mg Metoprolol Tartrate (Lopressor) 25 mg PO BID [facility] Last Admin: 01/22/17 18:01 Dose: 25 mg Ondansetron HCl (Zofran Tab) 4 mg PO Q8 PRN PRN Reason: Nausea/Vomiting Potassium Chloride (K-Dur 20 Meq Er Tab) 20 meq PO DAILY [facility] Last Admin: 01/22/17 09:28 Dose: Not Given Saccharomyces Boulardii (Florastor) 250 mg PO BID [facility] Last Admin: 01/22/17 18:01 Dose: 250 mg Sertraline HCl (Zoloft) 50 mg PO DAILY [facility] Last Admin: 01/22/17 09:27 Dose: 50 mg Trazodone HCl (Desyrel) 100 mg PO HS [facility] Last Admin: 01/22/17 23:30 Dose: 100 mg - Labs Labs: 01/21/17 06:30 01/21/17 06:30 PT 14.2 SECONDS (9.7-12.2) H 12/12/16 07:08 INR 1.3 12/12/16 07:08 APTT 32 SECONDS (21-34) 12/12/16 07:08 - Constitutional Appears: Non-toxic - Head Exam Head Exam: ATRAUMATIC, NORMOCEPHALIC - Eye Exam Eye Exam: EOMI, Normal appearance - ENT Exam ENT Exam: Mucous Membranes Moist - Respiratory Exam Respiratory Exam: NORMAL BREATHING PATTERN. absent: Accessory Muscle Use, Respiratory Distress - Cardiovascular Exam Cardiovascular Exam: REGULAR RHYTHM, +S1, +S2 - GI/Abdominal Exam GI & Abdominal Exam: Soft. absent: Tenderness - Extremities Exam Extremities Exam: absent: Calf Tenderness, Pedal Edema - Neurological Exam Neurological Exam: Alert, Awake, Oriented x3 - Psychiatric Exam Psychiatric exam: Normal Affect, Normal Mood - Skin Skin Exam: Dry, Normal Color, Warm Assessment and Plan - Assessment and Plan (Free Text) Plan: Left Lower Quadrant pain, resolved 01/22 01/16 CT abdomen/pelvis with IV and PO contrast: Cirrhosis with the portal hypertension including splenomegaly and marked variceal formation in the lower pole of the left kidney. The appearance is most suggestive of a renal infarct although mass is not excluded. This was not identified on the recent ultrasound. Recommend follow up with abdominal CT or MRI follow-up in 1 year. right adrenal adenoma. Small hiatal hernia, Nonobstructing calcification lower pole of the left kidney correlates to findings on recent ultrasound. Left kidney lower pole infarct 01/16 CT abdomen/pelvis with IV and PO contrast: suggestive of a renal infarct although mass is not excluded likely secondary to Endocarditis/Bacteremia upon discharge: follow up with MRI abdomen/pelvis upon discharge, with the [facility] Splenic infarct 01/16 CT abdomen/pelvis with IV and PO contrast: splenic infarct found likely secondary to Endocarditis/Bacteremia upon discharge: follow up with MRI abdomen/pelvis upon discharge, with the [facility] Bacteremia Imaging 01/11 CXR: PICC line placement in appropriate position 01/10: CXR: mild venous congestion, mild right hilar prominence. s/p median sternotomy 12/12 CXR: heterogenous infiltrate at inferior Right and Mid/inferior left lung zones vs atelectasis with likely small left pleural effusion and Right central venous line terminating at the right atrium 12/13 CXR: Right IJ central venous line with tip in the SVC after adjustment and right lower lobe opacity with improvement 12/12 Echo: Mobile density seen with high velocities across AV highly suspicious for AV endocarditis, transmitral doppler flow pattern is grade 1 (abnormal relaxation pattern), LV and RV systolic function normal, EF = 60-65% Cultures: 12/12 Blood Cx: Gram positive cocci in changes - Strep mitis 12/12 Urine Cx: no growth Zosyn 3.375 gm Q6H, 12/14 Vanc 1 gm Q12H discontinued per ID Consult: Dr. Trevino , Patient was on augmentin, awaiting PICC line placement 01/12 Patient placed back on Zosyn 3.375 gmQ6H due to PICC line placement, to finish antibiotics on January 23, 2017 Tylenol 650 mg PO Q6 prn fever. Due to history of hepatitis, monitor LFTs, consider changing medication * Patient seen at [facility] in 09/2016. Patient had TTE at that time which did NOT show vegetations on valve. Patient was also seen by psychiatry at that time as well as general surgery for abscess I&D. Will attempt to obtain patient's March [facility] medical records with information regarding valve surgery * Dr. Willson was contacted and agreed to see the patient on consult as long as Dr. Rushing (cardiology) accepts the transfer under his care * Dr. Rushing (who originally cared for the patient at [facility]) did not return any of our calls so the patient will stay here for the remainder of his antibiotic treatment. * Patient on Zosyn until Jan.23 then discharged on Jan 24, one more day of antibiotic medication * Blood work to be changed to Sat/Mon/Wed schedule Systolic ejection murmur * Likely 2/2 aortic valve replacement x2 * Echo 12/12 showed vegetations * Cardio consult on 12/14 (Dr. Leyva): does not recommend CASPER at this time * Positive blood culture for Strep mitis (12/12/16) * Repeat Blood Cultures 12/14/16 and 12/16/16 showed NO growth at 5 days * Cont zosyn and d/c vanc per Dr. Trevino as stated above; F/U about abx coverage for strep mitis * 01/04 Central Line removed and replaced in the left femoral vein Unable to get blood return from middle lumen (brown) - suggest line removed and changed * Hx of IV drug use/porcine valve * CT surg consult (Dr. Peralta) - says should be followed up with surgeon who did original AV replacement (Dr. Willson) * See above * F/U Medical records from [facility] - call original surgeon for AV valve replacement and see if he would like to accept the patient at [facility] * CXR: Right-sided central venous catheter extends to the cavoatrial junction. Mild left basilar atelectasis/infiltrate and or small pleural effusion. Median sternotomy wires. Cardiomegaly. HTN continue with Metoprolol 25 mg po BID Chest pain STAT EKG 01/20: no ST elevations Total Creatine Kinase <20 CKMB 0.35 Troponin I, Quant <0.0120 Low back pain * lumbar spine XR - No abnormalities seen * flexeril 5mg TID * MRI lumbar spine - No acute fracture, spondylolysis or spondylolisthesis. No evidence of discitis/osteomyelitis. Mild degenerative disc disease at L4-5 with a posterior disc bulge and superimposed right foraminal disc protrusion. Mild right neural foraminal stenosis. No central spinal canal stenosis. Note is made of splenomegaly, perisplenic and splenorenal arises in this patient with known hepatic cirrhosis. * Advised patient to walk around as much as tolerated Hematochezia * Resolved * likely 2/2 hemorrhoid found on SMILEY * Colace TID * Patient will need out patient colonoscopy Left shoulder pain/weakness * 2/2 Hx of fall * 12/13 Left shoulder XR: no acute dislocation or fracture, soft tissues unremarkable Diarrhea * Resolved * 12/12 Stool Culture/O&P - negative for O&P, salmonella, shigella, and campylobacter * 12/12 Stool negative for leukocytes and occult blood * 12/12 Serum C. diff antigen and toxin negative * Stool C diff (Neg) and repeat leukocytes (Neg) * 12/16 stool culture negative * Patient is occasionally constipated - obstruction series ordered 12/28 was negative * Managed on PRN basis History of Seizures * Continue Keppra 500 mg PO BID * Continue Gabapentin 300 mg PO BID History of Depression * Continue Zoloft 50 mg PO daily History of Hepatitis B & C * Monitor LFTs. 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 Leyva said patient is okay to be discharge home. Patient will follow up with cardiology/CT surgery at [facility]. Today is the patient's last day of IV abx. Patient is to be discharged tomorrow. Will discuss case with Dr. Rand Packn PGY1 <Dane Machado - Last Filed: 01/23/17 20:21> Objective - Vital Signs/Intake and Output Vital Signs (last 24 hours): Temp Pulse Resp BP Pulse Ox 98.7 F 95 H 20 112/75 97 01/23/17 15:23 01/23/17 15:23 01/23/17 15:23 01/23/17 17:23 01/23/17 15:23 Intake and Output: 01/23/17 01/24/17 18:59 06:59 Intake Total 850 Balance 850 - Medications Medications: Current Medications Cyclobenzaprine HCl (Flexeril) 5 mg PO Q8H PRN PRN Reason: Muscle spasm Last Admin: 01/23/17 13:13 Dose: 5 mg Dicyclomine HCl (Bentyl) 20 mg PO Q8 PRN PRN Reason: ABDOMINAL PAIN Last Admin: 01/20/17 10:58 Dose: 20 mg Gabapentin (Neurontin) 300 mg PO BID [facility] Last Admin: 01/23/17 17:23 Dose: 300 mg Hydroxyzine HCl (Atarax) 50 mg PO Q6H PRN PRN Reason: Anxiety Last Admin: 01/23/17 13:13 Dose: 50 mg Piperacillin Sod/Tazobactam Sod (Zosyn 3.375 Gm Iv Premix) 3.375 gm in 50 mls @ 100 mls/hr IVPB Q8H [facility] Last Admin: 01/23/17 17:28 Dose: 100 mls/hr Ibuprofen (Motrin Tab) 600 mg PO Q8H PRN PRN Reason: Pain, moderate (4-7) Last Admin: 01/19/17 20:44 Dose: 600 mg Levetiracetam (Keppra) 500 mg PO BID [facility] Last Admin: 01/23/17 17:23 Dose: 500 mg Metoprolol Tartrate (Lopressor) 25 mg PO BID [facility] Last Admin: 01/23/17 17:23 Dose: 25 mg Ondansetron HCl (Zofran Tab) 4 mg PO Q8 PRN PRN Reason: Nausea/Vomiting Potassium Chloride (K-Dur 20 Meq Er Tab) 20 meq PO DAILY [facility] Last Admin: 01/23/17 10:41 Dose: 20 meq Saccharomyces Boulardii (Florastor) 250 mg PO BID [facility] Last Admin: 01/23/17 17:22 Dose: 250 mg Sertraline HCl (Zoloft) 50 mg PO DAILY [facility] Last Admin: 01/23/17 10:41 Dose: 50 mg Trazodone HCl (Desyrel) 100 mg PO HS [facility] Last Admin: 01/22/17 23:30 Dose: 100 mg - Labs Labs: 01/23/17 11:22 01/23/17 11:22 PT 14.2 SECONDS (9.7-12.2) H 12/12/16 07:08 INR 1.3 12/12/16 07:08 APTT 32 SECONDS (21-34) 12/12/16 07:08 Attending/Attestation - Attestation I have personally seen and examined this patient.: Yes I have fully participated in the care of the patient.: Yes I have reviewed all pertinent clinical information, including history, physical exam and plan: Yes Notes (Text): 01/23/17 20:20 Patient was seen and examined at 7:30 AM 01/23/17. He will complete 6 weeks of IV Zosyn tonight. He is for discharge morning of 01/24/17. He will need follow up through our [facility] and with CardioThoracic Surgeon Dr. Irvin at [facility] and Cardiologists Dr. Schilling/Jose Elias. Dane Machado D.O.
[2017-01-23] MEDS: Potassium Chloride 20 mEq ER Tab PO SCH (10:41)
[2017-01-23] MEDS: Saccharomyces Boulardi 250 mg Cap PO SCH ×2 (10:41→17:22)
[2017-01-23 11:39] LABS: BASO % 0.5 % (0.0-2.0); EOS % 1.5 % (0.0-4.0); HEMATOCRIT 28.4 % (35.0-51.0); LYMPH # 0.5 K/uL (1.0-4.3); LYMPH % 16.1 % (20.0-40.0); MEAN CELL VOLUME 76.6 fL (80.0-94.0); MEAN CORPUSCULAR HEMOGLOBIN 25.2 pg (27.0-31.0); MEAN CORPUSCULAR HGB CONC 32.8 g/dL (33.0-37.0); MEAN PLATELET VOLUME 7.9 fL (7.2-11.7); MONO # 0.3 K/uL (0.0-0.8); MONO % 10.7 % (0.0-10.0); RED CELL DISTRIBUTION WIDTH 16.6 % (11.5-14.5); WHITE BLOOD COUNT 2.8 K/uL (4.8-10.8)
[2017-01-23 11:43] LABS: CHLORIDE 103 mmol/L (98-107)
[2017-01-23 11:44] LABS: POTASSIUM 3.9 mmol/L (3.6-5.2); SODIUM 136 mmol/L (132-148)
[2017-01-23 11:46] LABS: GFR AFRICAN-AMERICAN > 60
[2017-01-23 11:47] LABS: ALKALINE PHOSPHATASE 76 U/L (38-126); ALT/SGPT 49 U/L (21-72); AST/SGOT 34 U/L (17-59); BILIRUBIN,TOTAL 0.6 mg/dL (0.2-1.3); BLOOD UREA NITROGEN 17 mg/dL (9-20); CALCIUM 8.4 mg/dl (8.6-10.4); CARBON DIOXIDE 22 mmol/L (22-30); GLUCOSE,RANDOM 124 mg/dL (75-110); TOTAL PROTEIN 6.7 g/dL (6.3-8.3)
[2017-01-24] MEDS: Piperacill/Tazo 3.375gm in Dex 3.375 GM/50 ML BAG IVPB SCH (02:45)
[2017-01-24 07:23] LABS: BASO % 0.9 % (0.0-2.0); EOS % 1.9 % (0.0-4.0); HEMATOCRIT 26.2 % (35.0-51.0); LYMPH # 0.3 K/uL (1.0-4.3); LYMPH % 13.8 % (20.0-40.0); MEAN CORPUSCULAR HEMOGLOBIN 25.6 pg (27.0-31.0); MEAN CORPUSCULAR HGB CONC 33.2 g/dL (33.0-37.0); MEAN PLATELET VOLUME 7.9 fL (7.2-11.7); MONO # 0.2 K/uL (0.0-0.8); MONO % 9.8 % (0.0-10.0); WHITE BLOOD COUNT 2.3 K/uL (4.8-10.8)
[2017-01-24 07:45] LABS: CHLORIDE 104 mmol/L (98-107)
[2017-01-24 07:46] LABS: SODIUM 136 mmol/L (132-148)
[2017-01-24 07:48] LABS: ALB/GLOB RATIO 0.9 (1.0-2.1); ALKALINE PHOSPHATASE 70 U/L (38-126); ALT/SGPT 48 U/L (21-72); AST/SGOT 43 U/L (17-59); BILIRUBIN,TOTAL 0.5 mg/dL (0.2-1.3); BLOOD UREA NITROGEN 16 mg/dL (9-20); CALCIUM 8.6 mg/dl (8.6-10.4); CARBON DIOXIDE 24 mmol/L (22-30); GFR AFRICAN-AMERICAN > 60; GLUCOSE,RANDOM 87 mg/dL (75-110); TOTAL PROTEIN 6.3 g/dL (6.3-8.3)
[2017-01-24 08:41] VITALS: PULSE 95; RESP 17; TEMP 98.3; O2SAT 98
[2017-01-24] MEDS: Potassium Chloride 20 mEq ER Tab PO SCH (10:32)
[2017-01-24] MEDS: Saccharomyces Boulardi 250 mg Cap PO SCH (10:34)
[2017-01-24 10:37] VITALS: BP 121/74
--- NOTE | 2017-01-24 14:44 | CP.PCM.DIS ---
Addendum entered and electronically signed by Meli Foster DO 01/25/17 07:10: Consults Cardiology Consult: Dr. Leyva for endocarditis picture General Surgeon: Dr. Park for central line placement Heme Onc: Dr. Silva Pancytopenia, Hep B &C, IVDA Infectious disease consult: Dr. Trevino for fever, likely sepsis Physician consult Dr. Peralta for Endocarditis Psychiatry consult: IVDA, depression Original Note: <Meli Foster - Last Filed: 01/25/17 06:51> Provider - Provider Date of Admission: 12/04/16 02:30 Attending physician: Dane Machado MD Consults: Time Spent in preparation of Discharge (in minutes): 40 Hospital Course - Lab Results Lab Results: Micro Results 01/10/17 12:00 Blood Blood Culture - Final NO GROWTH AFTER 5 DAYS 01/10/17 12:00 Blood Gram Stain - Final TEST NOT PERFORMED 01/10/17 11:45 Blood Blood Culture - Final NO GROWTH AFTER 5 DAYS 01/10/17 11:45 Blood Gram Stain - Final TEST NOT PERFORMED 01/08/17 16:20 Blood-Venous Blood Culture - Final NO GROWTH AFTER 5 DAYS 01/08/17 16:20 Blood-Venous Gram Stain - Final TEST NOT PERFORMED 01/08/17 16:50 Blood-Venous Blood Culture - Final NO GROWTH AFTER 5 DAYS 01/08/17 16:50 Blood-Venous Gram Stain - Final TEST NOT PERFORMED 01/10/17 15:00 Catheter Tip Catheter Tip Culture - Final No growth. 01/10/17 Unknown Stool Stool Culture - Final NO SALMONELLA, SHIGELLA OR CAMPYLOBACTER ISOLATED. 01/10/17 Unknown Stool Ova and Parasite Concentrate Exam - Final 01/10/17 Unknown Urine,Clean Catch Urine Culture - Final No Growth (<1,000 CFU/ML) 12/16/16 05:50 Blood-Venous Blood Culture - Final NO GROWTH AFTER 5 DAYS 12/16/16 05:50 Blood-Venous Gram Stain - Final 12/16/16 05:15 Blood-Venous Blood Culture - Final NO GROWTH AFTER 5 DAYS 12/16/16 05:15 Blood-Venous Gram Stain - Final TEST NOT PERFORMED 12/14/16 18:30 Blood Blood Culture - Final NO GROWTH AFTER 5 DAYS 12/14/16 18:30 Blood Gram Stain - Final TEST NOT PERFORMED 12/14/16 18:00 Blood Blood Culture - Final NO GROWTH AFTER 5 DAYS 12/14/16 18:00 Blood Gram Stain - Final TEST NOT PERFORMED 12/16/16 10:00 Stool Ova and Parasite Concentrate Exam - Final 12/16/16 10:00 Stool Stool Culture - Final NO SALMONELLA, SHIGELLA OR CAMPYLOBACTER ISOLATED. 12/12/16 18:45 Stool Stool Culture - Final NO SALMONELLA, SHIGELLA OR CAMPYLOBACTER ISOLATED. 12/12/16 04:26 Blood Blood Culture - Final Streptococcus Mitis 12/12/16 04:26 Blood Gram Stain - Final 12/12/16 03:56 Blood S.aureus & Coag-Neg Staph PNA FISH - Final 12/12/16 03:56 Blood Blood Culture - Final Streptococcus Mitis 12/12/16 03:56 Blood Gram Stain - Final 12/12/16 18:45 Stool Ova and Parasite Concentrate Exam - Final 12/12/16 Unknown Urine,Clean Catch Urine Culture - Final No Growth (<1,000 CFU/ML) Most Recent Lab Values WBC 2.3 K/uL (4.8-10.8) L 01/24/17 07:14 RBC 3.41 Mil/uL (4.40-5.90) L 01/24/17 07:14 Hgb 8.7 g/dL (12.0-18.0) L 01/24/17 07:14 Hct 26.2 % (35.0-51.0) L 01/24/17 07:14 MCV 77.0 fL (80.0-94.0) L 01/24/17 07:14 MCH 25.6 pg (27.0-31.0) L 01/24/17 07:14 MCHC 33.2 g/dL (33.0-37.0) 01/24/17 07:14 RDW 17.0 % (11.5-14.5) H 01/24/17 07:14 Plt Count 99 K/uL (130-400) L 01/24/17 07:14 Manual Plt Count 46 K/uL (130-400) L 12/12/16 10:45 MPV 7.9 fL (7.2-11.7) 01/24/17 07:14 Neut % (Auto) 73.6 % (50.0-75.0) 01/24/17 07:14 Lymph % (Auto) 13.8 % (20.0-40.0) L 01/24/17 07:14 [place] % (Auto) 9.8 % (0.0-10.0) 01/24/17 07:14 Eos % (Auto) 1.9 % (0.0-4.0) 01/24/17 07:14 Baso % (Auto) 0.9 % (0.0-2.0) 01/24/17 07:14 Neut # 1.7 K/uL (1.8-7.0) L 01/24/17 07:14 Lymph # 0.3 K/uL (1.0-4.3) L 01/24/17 07:14 [place] # 0.2 K/uL (0.0-0.8) 01/24/17 07:14 Eos # 0.0 K/uL (0.0-0.7) 01/24/17 07:14 Baso # 0.0 K/uL (0.0-0.2) 01/24/17 07:14 Neutrophils % (Manual) 81 % (50-75) H 12/26/16 07:16 Band Neutrophils % 1 % (0-2) 12/26/16 07:16 Lymphocytes % (Manual) 10 % (20-40) L 12/26/16 07:16 Monocytes % (Manual) 8 % (0-10) 12/26/16 07:16 Differential Comment 01/05/17 11:16 Toxic Granulation Present 12/26/16 07:16 Platelet Estimate Decreased (NORMAL) L 12/26/16 07:16 Polychromasia Slight 12/26/16 07:16 Hypochromasia (manual) Slight 12/26/16 07:16 Poikilocytosis (manual Slight 12/26/16 07:16 Basophilic Stippling Slight 12/26/16 07:16 Anisocytosis (manual) Moderate 12/26/16 07:16 Microcytosis (manual) Slight 12/12/16 10:45 Ovalocytes Slight 12/26/16 07:16 Smear Path Review 12/12/16 04:36 Retic Count 1.6 % (0.5-1.5) H 12/12/16 10:45 PT 14.2 SECONDS (9.7-12.2) H 12/12/16 07:08 INR 1.3 12/12/16 07:08 APTT 32 SECONDS (21-34) 12/12/16 07:08 Puncture Site Rr 12/12/16 08:26 pCO2 32 mm/Hg (35-45) L 12/12/16 08:26 pO2 97 mm/Hg (80-100) 12/12/16 08:26 HCO3 25.2 mmol/L (21-28) 12/12/16 08:26 ABG pH 7.47 (7.35-7.45) H 12/12/16 08:26 ABG Total CO2 24.3 mmol/L (22-28) 12/12/16 08:26 ABG O2 Saturation 99.2 % (95-98) H 12/12/16 08:26 ABG Base Excess 0.3 mmol/L (-2.0-3.0) 12/12/16 08:26 Mehran Test Pos 12/12/16 08:26 ABG Potassium 3.3 mmol/L (3.6-5.2) L 12/12/16 08:26 A-a O2 Difference 56.0 mm/Hg 12/12/16 08:26 Respiratory Index 0.6 12/12/16 08:26 Sodium 133.0 mmol/l (132-148) 12/12/16 08:26 Chloride 108.0 mmol/L (98-107) H 12/12/16 08:26 Glucose 106 mg/dl (75-110) 12/12/16 08:26 Lactate 1.2 mmol/L (0.7-2.1) 12/12/16 08:26 Liter Flow 2.0 12/12/16 08:26 FiO2 27.0 % 12/12/16 08:26 Sodium 136 mmol/L (132-148) 01/24/17 07:14 Potassium 4.0 mmol/L (3.6-5.2) 01/24/17 07:14 Chloride 104 mmol/L (98-107) 01/24/17 07:14 Carbon Dioxide 24 mmol/L (22-30) 01/24/17 07:14 Anion Gap 13 (10-20) 01/24/17 07:14 BUN 16 mg/dL (9-20) 01/24/17 07:14 Creatinine 0.9 mg/dL (0.8-1.5) 01/24/17 07:14 Est GFR ( Amer) > 60 01/24/17 07:14 Est GFR (Non-Af Amer) > 60 01/24/17 07:14 Random Glucose 87 mg/dL (75-110) 01/24/17 07:14 Calcium 8.6 mg/dl (8.6-10.4) 01/24/17 07:14 Phosphorus 3.5 mg/dL (2.5-4.5) 01/21/17 06:30 Magnesium 1.6 mg/dL (1.6-2.3) 01/21/17 06:30 Ferritin 38.7 ng/mL 12/12/16 10:45 Total Bilirubin 0.5 mg/dL (0.2-1.3) 01/24/17 07:14 AST 43 U/L (17-59) 01/24/17 07:14 ALT 48 U/L (21-72) 01/24/17 07:14 Alkaline Phosphatase 70 U/L (38-126) 01/24/17 07:14 Total Creatine Kinase < 20 U/L (55-170) L 01/21/17 13:35 CK-MB (Mass) 0.35 ng/mL (0.0-3.38) 01/21/17 13:35 Troponin I, Quant < 0.0120 ng/mL (0.00-0.120) 01/21/17 13:35 Total Protein 6.3 g/dL (6.3-8.3) 01/24/17 07:14 Albumin 3.0 g/dL (3.5-5.0) L 01/24/17 07:14 Globulin 3.3 gm/dL (2.2-3.9) 01/24/17 07:14 Albumin/Globulin Ratio 0.9 (1.0-2.1) L 01/24/17 07:14 Vitamin B12 685 pg/mL (239-931) 12/12/16 10:45 Folate 10.2 ng/mL 12/12/16 10:45 Arterial Blood Potassium 3.3 mmol/L (3.6-5.2) L 12/12/16 08:26 Urine Color Yellow (YELLOW) 01/10/17 12:15 Urine Clarity Clear (Clear) 01/10/17 12:15 Urine pH 5.0 (5.0-8.0) 01/10/17 12:15 Ur Specific Nesmith 1.027 (1.003-1.030) 01/10/17 12:15 Urine Protein Negative mg/dL (NEGATIVE) 01/10/17 12:15 Urine Glucose (UA) Normal mg/dL (Normal) 01/10/17 12:15 Urine Ketones Negative mg/dL (NEGATIVE) 01/10/17 12:15 Urine Blood 1+ (NEGATIVE) H 01/10/17 12:15 Urine Nitrate Negative (NEGATIVE) 01/10/17 12:15 Urine Bilirubin Negative (NEGATIVE) 01/10/17 12:15 Urine Urobilinogen Normal mg/dL (0.2-1.0) 01/10/17 12:15 Ur Leukocyte Esterase Neg Rebecca/uL (Negative) 01/10/17 12:15 Urine WBC (Auto) 3 /hpf (0-5) 01/10/17 12:15 Urine RBC (Auto) 7 /hpf (0-3) H 01/10/17 12:15 Ur Squamous Epith Cells 5 /hpf (0-5) 01/10/17 12:15 Uric Acid Crystals Occ /hpf (<OCC) H 01/10/17 12:15 Urine Bacteria Rare (<OCC) 12/04/16 01:46 Stool Occult Blood Negative (NEGATIVE) 12/12/16 19:23 Stool Leukocytes, Qual Negative (NEGATIVE) 01/10/17 Unknown Vancomycin Trough 6.4 ug/mL (5.0-10.0) 12/13/16 16:52 Urine Opiates Screen Positive (NEGATIVE) 12/04/16 01:46 Urine Methadone Screen Negative (NEGATIVE) 12/04/16 01:46 Ur Barbiturates Screen Negative (NEGATIVE) 12/04/16 01:46 Ur Phencyclidine Scrn Negative (NEGATIVE) 12/04/16 01:46 Ur Amphetamines Screen Negative (NEGATIVE) 12/04/16 01:46 U Benzodiazepines Scrn Negative (NEGATIVE) 12/04/16 01:46 U Oth Cocaine Metabols Positive (NEGATIVE) H 12/04/16 01:46 U Cannabinoids Screen Positive (NEGATIVE) 12/04/16 01:46 Alcohol, Quantitative < 10 mg/dl (0-10) 12/04/16 02:28 C. difficile Ag & Toxin Negative (NEGATIVE) 01/10/17 Unknown HIV 1&2 Antibody Screen Negative (NEGATIVE) 12/12/16 10:45 - Hospital Course Hospital Course: H&P This is a 46 year old male with PMHx endocarditis s/p aortic valve replacement x2, seizures, heroin use disorder, cocaine use disorder, hepatitis B and C who was a rapid response in [facility] for fever and hypoxia. Patient originally came to the hospital for heroin withdrawal, SI, and auditory hallucinations. Patient earlier in the morning began feeling unwell. Patient complained of chills with intermittent cough producing white sputum. Patient also complaining of diarrhea. Staff took vitals and noted temperature of 103 and oxygenation of 86% . Therefore, [employer] called. Patient was transferred to telemetry where IV was inserted. Cultures and labwork were drawn. Fluids and IV antibiotics were started. Hospital course 12/11 Psychiatry Consult: Dr. Perez for supportive therapy. methadone taper to continue due to opiate abuse. Patient is continuing keppra for seizures 12/12 Blood Cx: Gram positive cocci in changes - Strep mitis 12/12 Urine Cx: no growth 12/12 ECHO: vegetations Patient has a systolic ejection, murmur 12/13 CXR: improved right lower lobe atelectasis and mild bibasilar atelectasis with small effusion 12/13: Shoulder XRAY: no acute displaced fracture or dislocation 12/14 Lumbar Spine XRAY AP/LAT: no morphology seen, unremarkable 12/14 Cardiology Consult: Dr. Leyva for endocarditis. did not recommend CASPER at this time 12/12 General Surgery Consult: Central line placement 12/12 Hematology Oncology Consult: 12/16 CXR: right sided central venous catheter extends to cavoatrial junction. mild left basilar atelectasis/infiltrate and or small pleural effusion Patient had chest pain overnight EKG: NSR @ 89 bpm with prolonged QT Troponin I: negative 12/17 Lumbar Spine MRI: no acute fracture, spondylolysis, or spondylolisthesis. no evidence of discitis or osteomyelitis. Mild degenerative disease at L4-L5 with posterior disc bulge, and superimposed right foraminal disc protrusion and splenorenal arises in patient with known hepatic cirrhosis 12/28 Abdominal Obstructive series XRAY: moderate constipation. no SBO, no free air 01/04 Central Line removed and replaced in the left femoral vein. Unable to get blood return from middle lumen (brown) - suggest line removed and changed 01/10 Abdominal US Cont zosyn and d/c vanc per Dr. Trevino as stated above; F/U about abx coverage for strep mitis 01/11 CXR: PICC line placement in appropriate position, removed 01/24, 01/12 CXR: no interval change. appropriate PICC line position Patient placed back on Zosyn 3.375 gmQ6H due to PICC line placement, to finish antibiotics on January 23, 2017 Left Femoral Line Removed. Pressure dressing in place 01/15 Patient was complaining of left lower abdominal pain 01/15 CT abdomen/Pelvis: splenic, renal infarcts. Cirrhosis with the portal hypertension including splenomegaly and marked variceal formation in the lower pole of the left kidney. The appearance is most suggestive of a renal infarct although mass is not excluded. This was not identified on the recent ultrasound. Recommend follow up with abdominal CT or MRI follow-up in 1 year. right adrenal adenoma. Small hiatal hernia, Nonobstructing calcification lower pole of the left kidney correlates to findings on recent ultrasound. 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 Peralta) - says should be followed up with surgeon who did original AV replacement (Dr. Willson) F/U Medical records from [facility] - call original surgeon for AV valve replacement and see if he would like to accept the patient at [facility] Called Dr. Leyva and states patient can go home after 01/23 and be admitted to [facility] without transfer. Prophylactic Measure Heparin and GI ppx held due to platelets during the stay SCDs were placed initially. Patient is ambulatory. Patient walks around the hospital 10 laps around the floor During hospital stay, Patient was found to have constipation and was given Maalox 30 ml PO once a day PRN indigestion Discharge plan Patient completed 6 weeks of IV Zosyn 01/23. Patient is clear for discharge today, 01/24/17 Please follow up at [facility] to follow up with MRI abdomen/ pelvis upon discharge, with the clinic for kidney infarct and splenic infarct Follow up with Cardiothoracic Surgeon Dr. Irvin at [facility] and Cardiologists Dr. Schilling/Jose Elias. Told to continue home medication scripts for metoprolol 25mg POBID #[id number] and keppra 500mg POBID#[id number] written - Date & Time of H&P Date of H&P: 01/24/17 Time of H&P: 22:00 Discharge Exam - Head Exam Head Exam: ATRAUMATIC, NORMOCEPHALIC - Eye Exam Eye Exam: EOMI - ENT Exam ENT Exam: Mucous Membranes Moist - Neck Exam Neck exam: Full Rom - Respiratory Exam Respiratory Exam: NORMAL BREATHING PATTERN. absent: Accessory Muscle Use, Respiratory Distress - Cardiovascular Exam Cardiovascular Exam: +S1, +S2. absent: Bradycardia, Tachycardia - GI/Abdominal Exam GI & Abdominal Exam: Normal Bowel Sounds, Soft, Tenderness - Neurological Exam Neurological exam: Alert, CN II-XII Intact, Normal Gait, Oriented x3 - Psychiatric Exam Psychiatric exam: Normal Affect, Normal Mood - Skin Skin Exam: Dry, Intact, Pallor Discharge Plan - Discharge Medications Prescriptions: RX: levETIRAcetam [Keppra] 500 mg PO BID #60 tab RX: Metoprolol Tartrate [Lopressor] 25 mg PO BID #60 tab - Follow Up Plan Condition: STABLE Disposition: HOME/ ROUTINE Instructions: Metoprolol (By mouth), Levetiracetam (By mouth), Endocarditis (DC ), Sepsis (GEN), Recurrent Seizures in Adults (DC) Additional Instructions: Patient completed 6 weeks of IV Zosyn 01/23. Patient is clear for discharge today, 01/24/17 Please follow up at [facility] to follow up with MRI abdomen/ pelvis upon discharge, with the clinic for kidney infarct and splenic infarct Follow up with Cardiothoracic Surgeon Dr. Irvin at [facility] and Cardiologists Dr. Schilling/Jose Elias. Referrals: [facility] at [facility] [Outside] <Chichi Dc V - Last Filed: 01/25/17 07:51> Provider - Provider Date of Admission: 12/04/16 02:30 Attending physician: Dane Machado MD Primary care physician: Does not have PMD Hospital Course - Lab Results Lab Results: Micro Results 01/10/17 12:00 Blood Blood Culture - Final NO GROWTH AFTER 5 DAYS 01/10/17 12:00 Blood Gram Stain - Final TEST NOT PERFORMED 01/10/17 11:45 Blood Blood Culture - Final NO GROWTH AFTER 5 DAYS 01/10/17 11:45 Blood Gram Stain - Final TEST NOT PERFORMED 01/08/17 16:20 Blood-Venous Blood Culture - Final NO GROWTH AFTER 5 DAYS 01/08/17 16:20 Blood-Venous Gram Stain - Final TEST NOT PERFORMED 01/08/17 16:50 Blood-Venous Blood Culture - Final NO GROWTH AFTER 5 DAYS 01/08/17 16:50 Blood-Venous Gram Stain - Final TEST NOT PERFORMED 01/10/17 15:00 Catheter Tip Catheter Tip Culture - Final No growth. 01/10/17 Unknown Stool Stool Culture - Final NO SALMONELLA, SHIGELLA OR CAMPYLOBACTER ISOLATED. 01/10/17 Unknown Stool Ova and Parasite Concentrate Exam - Final 01/10/17 Unknown Urine,Clean Catch Urine Culture - Final No Growth (<1,000 CFU/ML) 12/16/16 05:50 Blood-Venous Blood Culture - Final NO GROWTH AFTER 5 DAYS 12/16/16 05:50 Blood-Venous Gram Stain - Final 12/16/16 05:15 Blood-Venous Blood Culture - Final NO GROWTH AFTER 5 DAYS 12/16/16 05:15 Blood-Venous Gram Stain - Final TEST NOT PERFORMED 12/14/16 18:30 Blood Blood Culture - Final NO GROWTH AFTER 5 DAYS 12/14/16 18:30 Blood Gram Stain - Final TEST NOT PERFORMED 12/14/16 18:00 Blood Blood Culture - Final NO GROWTH AFTER 5 DAYS 12/14/16 18:00 Blood Gram Stain - Final TEST NOT PERFORMED 12/16/16 10:00 Stool Ova and Parasite Concentrate Exam - Final 12/16/16 10:00 Stool Stool Culture - Final NO SALMONELLA, SHIGELLA OR CAMPYLOBACTER ISOLATED. 12/12/16 18:45 Stool Stool Culture - Final NO SALMONELLA, SHIGELLA OR CAMPYLOBACTER ISOLATED. 12/12/16 04:26 Blood Blood Culture - Final Streptococcus Mitis 12/12/16 04:26 Blood Gram Stain - Final 12/12/16 03:56 Blood S.aureus & Coag-Neg Staph PNA FISH - Final 12/12/16 03:56 Blood Blood Culture - Final Streptococcus Mitis 12/12/16 03:56 Blood Gram Stain - Final 12/12/16 18:45 Stool Ova and Parasite Concentrate Exam - Final 12/12/16 Unknown Urine,Clean Catch Urine Culture - Final No Growth (<1,000 CFU/ML) Most Recent Lab Values WBC 2.3 K/uL (4.8-10.8) L 01/24/17 07:14 RBC 3.41 Mil/uL (4.40-5.90) L 01/24/17 07:14 Hgb 8.7 g/dL (12.0-18.0) L 01/24/17 07:14 Hct 26.2 % (35.0-51.0) L 01/24/17 07:14 MCV 77.0 fL (80.0-94.0) L 01/24/17 07:14 MCH 25.6 pg (27.0-31.0) L 01/24/17 07:14 MCHC 33.2 g/dL (33.0-37.0) 01/24/17 07:14 RDW 17.0 % (11.5-14.5) H 01/24/17 07:14 Plt Count 99 K/uL (130-400) L 01/24/17 07:14 Manual Plt Count 46 K/uL (130-400) L 12/12/16 10:45 MPV 7.9 fL (7.2-11.7) 01/24/17 07:14 Neut % (Auto) 73.6 % (50.0-75.0) 01/24/17 07:14 Lymph % (Auto) 13.8 % (20.0-40.0) L 01/24/17 07:14 [place] % (Auto) 9.8 % (0.0-10.0) 01/24/17 07:14 Eos % (Auto) 1.9 % (0.0-4.0) 01/24/17 07:14 Baso % (Auto) 0.9 % (0.0-2.0) 01/24/17 07:14 Neut # 1.7 K/uL (1.8-7.0) L 01/24/17 07:14 Lymph # 0.3 K/uL (1.0-4.3) L 01/24/17 07:14 [place] # 0.2 K/uL (0.0-0.8) 01/24/17 07:14 Eos # 0.0 K/uL (0.0-0.7) 01/24/17 07:14 Baso # 0.0 K/uL (0.0-0.2) 01/24/17 07:14 Neutrophils % (Manual) 81 % (50-75) H 12/26/16 07:16 Band Neutrophils % 1 % (0-2) 12/26/16 07:16 Lymphocytes % (Manual) 10 % (20-40) L 12/26/16 07:16 Monocytes % (Manual) 8 % (0-10) 12/26/16 07:16 Differential Comment 01/05/17 11:16 Toxic Granulation Present 12/26/16 07:16 Platelet Estimate Decreased (NORMAL) L 12/26/16 07:16 Polychromasia Slight 12/26/16 07:16 Hypochromasia (manual) Slight 12/26/16 07:16 Poikilocytosis (manual Slight 12/26/16 07:16 Basophilic Stippling Slight 12/26/16 07:16 Anisocytosis (manual) Moderate 12/26/16 07:16 Microcytosis (manual) Slight 12/12/16 10:45 Ovalocytes Slight 12/26/16 07:16 Smear Path Review 12/12/16 04:36 Retic Count 1.6 % (0.5-1.5) H 12/12/16 10:45 PT 14.2 SECONDS (9.7-12.2) H 12/12/16 07:08 INR 1.3 12/12/16 07:08 APTT 32 SECONDS (21-34) 12/12/16 07:08 Puncture Site Rr 12/12/16 08:26 pCO2 32 mm/Hg (35-45) L 12/12/16 08:26 pO2 97 mm/Hg (80-100) 12/12/16 08:26 HCO3 25.2 mmol/L (21-28) 12/12/16 08:26 ABG pH 7.47 (7.35-7.45) H 12/12/16 08:26 ABG Total CO2 24.3 mmol/L (22-28) 12/12/16 08:26 ABG O2 Saturation 99.2 % (95-98) H 12/12/16 08:26 ABG Base Excess 0.3 mmol/L (-2.0-3.0) 12/12/16 08:26 Mehran Test Pos 12/12/16 08:26 ABG Potassium 3.3 mmol/L (3.6-5.2) L 12/12/16 08:26 A-a O2 Difference 56.0 mm/Hg 12/12/16 08:26 Respiratory Index 0.6 12/12/16 08:26 Sodium 133.0 mmol/l (132-148) 12/12/16 08:26 Chloride 108.0 mmol/L (98-107) H 12/12/16 08:26 Glucose 106 mg/dl (75-110) 12/12/16 08:26 Lactate 1.2 mmol/L (0.7-2.1) 12/12/16 08:26 Liter Flow 2.0 12/12/16 08:26 FiO2 27.0 % 12/12/16 08:26 Sodium 136 mmol/L (132-148) 01/24/17 07:14 Potassium 4.0 mmol/L (3.6-5.2) 01/24/17 07:14 Chloride 104 mmol/L (98-107) 01/24/17 07:14 Carbon Dioxide 24 mmol/L (22-30) 01/24/17 07:14 Anion Gap 13 (10-20) 01/24/17 07:14 BUN 16 mg/dL (9-20) 01/24/17 07:14 Creatinine 0.9 mg/dL (0.8-1.5) 01/24/17 07:14 Est GFR ( Amer) > 60 01/24/17 07:14 Est GFR (Non-Af Amer) > 60 01/24/17 07:14 Random Glucose 87 mg/dL (75-110) 01/24/17 07:14 Calcium 8.6 mg/dl (8.6-10.4) 01/24/17 07:14 Phosphorus 3.5 mg/dL (2.5-4.5) 01/21/17 06:30 Magnesium 1.6 mg/dL (1.6-2.3) 01/21/17 06:30 Ferritin 38.7 ng/mL 12/12/16 10:45 Total Bilirubin 0.5 mg/dL (0.2-1.3) 01/24/17 07:14 AST 43 U/L (17-59) 01/24/17 07:14 ALT 48 U/L (21-72) 01/24/17 07:14 Alkaline Phosphatase 70 U/L (38-126) 01/24/17 07:14 Total Creatine Kinase < 20 U/L (55-170) L 01/21/17 13:35 CK-MB (Mass) 0.35 ng/mL (0.0-3.38) 01/21/17 13:35 Troponin I, Quant < 0.0120 ng/mL (0.00-0.120) 01/21/17 13:35 Total Protein 6.3 g/dL (6.3-8.3) 01/24/17 07:14 Albumin 3.0 g/dL (3.5-5.0) L 01/24/17 07:14 Globulin 3.3 gm/dL (2.2-3.9) 01/24/17 07:14 Albumin/Globulin Ratio 0.9 (1.0-2.1) L 01/24/17 07:14 Vitamin B12 685 pg/mL (239-931) 12/12/16 10:45 Folate 10.2 ng/mL 12/12/16 10:45 Arterial Blood Potassium 3.3 mmol/L (3.6-5.2) L 12/12/16 08:26 Urine Color Yellow (YELLOW) 01/10/17 12:15 Urine Clarity Clear (Clear) 01/10/17 12:15 Urine pH 5.0 (5.0-8.0) 01/10/17 12:15 Ur Specific Nesmith 1.027 (1.003-1.030) 01/10/17 12:15 Urine Protein Negative mg/dL (NEGATIVE) 01/10/17 12:15 Urine Glucose (UA) Normal mg/dL (Normal) 01/10/17 12:15 Urine Ketones Negative mg/dL (NEGATIVE) 01/10/17 12:15 Urine Blood 1+ (NEGATIVE) H 01/10/17 12:15 Urine Nitrate Negative (NEGATIVE) 01/10/17 12:15 Urine Bilirubin Negative (NEGATIVE) 01/10/17 12:15 Urine Urobilinogen Normal mg/dL (0.2-1.0) 01/10/17 12:15 Ur Leukocyte Esterase Neg Rebecca/uL (Negative) 01/10/17 12:15 Urine WBC (Auto) 3 /hpf (0-5) 01/10/17 12:15 Urine RBC (Auto) 7 /hpf (0-3) H 01/10/17 12:15 Ur Squamous Epith Cells 5 /hpf (0-5) 01/10/17 12:15 Uric Acid Crystals Occ /hpf (<OCC) H 01/10/17 12:15 Urine Bacteria Rare (<OCC) 12/04/16 01:46 Stool Occult Blood Negative (NEGATIVE) 12/12/16 19:23 Stool Leukocytes, Qual Negative (NEGATIVE) 01/10/17 Unknown Vancomycin Trough 6.4 ug/mL (5.0-10.0) 12/13/16 16:52 Urine Opiates Screen Positive (NEGATIVE) 12/04/16 01:46 Urine Methadone Screen Negative (NEGATIVE) 12/04/16 01:46 Ur Barbiturates Screen Negative (NEGATIVE) 12/04/16 01:46 Ur Phencyclidine Scrn Negative (NEGATIVE) 12/04/16 01:46 Ur Amphetamines Screen Negative (NEGATIVE) 12/04/16 01:46 U Benzodiazepines Scrn Negative (NEGATIVE) 12/04/16 01:46 U Oth Cocaine Metabols Positive (NEGATIVE) H 12/04/16 01:46 U Cannabinoids Screen Positive (NEGATIVE) 12/04/16 01:46 Alcohol, Quantitative < 10 mg/dl (0-10) 12/04/16 02:28 C. difficile Ag & Toxin Negative (NEGATIVE) 01/10/17 Unknown HIV 1&2 Antibody Screen Negative (NEGATIVE) 12/12/16 10:45 Attending/Attestation - Attestation I have personally seen and examined this patient.: Yes I have fully participated in the care of the patient.: Yes I have reviewed all pertinent clinical information, including history, physical exam and plan: Yes Notes (Text): Patient seen, examined and case discussed with day-time resident. Patient denies acute complaints at time of discharge. Patient underwent extensive hospitalization for endocarditis requiring IV abx therapy. Patient is recommended to follow-up at [facility] with thoracic for evaluation of vegetation on the porcine valve per cardiology recommendation. Patient strongly echos to not use IV drugs and he is fully aware of the risks of IV drug user given he has had multiple hospitalizations regarding endocarditis. PICC line removed prior to discharge. Discharge order and discharge instructions discussed with patient at bedside. Prescriptions upon discharge: 1) Keppra 500mg PO BID (60 tabs/0 refills) 2) Zoloft 50 mg PO daily (30 tabs/0 refills) 3) Lopressor 25mg PO BID (60 tabs /0 refills) This is a summary of patient's hospitalization. Please see EMR for further details. Discharge diagnoses: 1) Sepsis-->Resolved * Criteria: WBC<4; Temp: 104 F; positive blood cultures; Lactate: 1.2 on admission * Infectious Disease (Dr. Trevino) on board * Zosyn 3.375 gm Q6H (active since 12/12/16)-->patient to complete 6 weeks of IV Abx on January; off IV abx until PICC line can be placed * Echocardiogram (12/14/16): left ventricle systolic function is normal; EF: 60- 65%, Transmital doppler flow pattern is Grade I abnormal relaxation pattern. Right ventricular systolic function is normal. Aortic valve bioprosthetic. Mobile density seen with high velocities across Aortic valve highly suspicious for aortic valve endocarditis. recommended for [facility] * Cardiology (Dr. Leyva)-->no [facility]; patient has endocarditis * Blood culture (12/12/16): Strep mitis X2 * Blood culture (12/14/16): No growth * Blood culture (12/16/16): No growth * Blood culture (01/08/17): no growth after 3 days X2 * Urine culture (12/12/16): no growth * Blood culture (01/10): no growth after 3 days * Urine culture (01/10): no growth * Femoral tip culture: no growth * Zosyn 3.375 gm Q6H (active since 12/12/16)-->patient to completed 6 weeks of IV Abx on January * s/p PICC on 01/12; removed prior to discharge * Tylenol 650 mg PO Q6 prn fever. Monitor liver function tests in light of hepatitis hx 2) Endocarditis-->resolved * Infectious Disease (Dr. Trevino) on board-->help appreciated * IV abx for 6 weeks completed * Cardiology (Dr. Leyva)-->no CASPER; patient has endocarditis * Echocardiogram (12/14/16): left ventricle systolic function is normal; EF: 60- 65%, Transmital doppler flow pattern is Grade I abnormal relaxation pattern. Right ventricular systolic function is normal. Aortic valve bioprosthetic. Mobile density seen with high velocities across Aortic valve highly suspicious for aortic valve endocarditis. recommended for CASPER * IV Abx: Zosyn 3.375 gm Q6H (active since 12/12/16) and Vancomycin discontinued * Blood cultures (12/12/16): Strep mitis X2 * Blood cultures (12/14/16): no growth * Risk factors: +murmur, IV drug use (2 major in Daily's Criteria) * Chest Xray (12/16/16): CXR: Right-sided central venous catheter extends to the cavoatrial junction. Mild left basilar atelectasis/infiltrate and or small pleural effusion. Median sternotomy wires. Cardiomegaly. * Resident spoke with telegraphic typewriter operator Dr. Leyva on 01/12, recommended to complete Iv abx, discharge from the hospital and to come to be admitted to [facility] to be admitted for vegetation on porcine valve. * Ct Abdomen/Pelvis IV and PO contrast (01/15/17): cirrhosis w portal hypertension including splenomegaly and marked variceal formation, 4 splenic infarcts, wedge shaped (renal infarct), periportal and mesenteric adenopathy, left sided consolidation/atelectasis, right adrenal adenoma, small hiatal hernia , nonobstructing 3) History of porcine aortic valve replacement secondary to prior history of endocarditis; * healed surgical scar on exam; in-spite of counselling, patient continues to do IVDA drug use and was instructed he is at risk of endocarditis and sequela if IVDA drug use persists; will need to follow-up with thoracic surgery and cardiology at [facility] where he had the original placement of the aortic valve 4) Left Shoulder Pain--Resolved * Left Shoulder Xray (12/13/16): no acute displaced fracture or dislocation evident 5) Low Back Pain--Resolved * Xray LS Spine (12/14/16): no abnormalities * MRI Lumbar Spine: no acute fracture, spondylolysis, or spondylolisthesis. Mild degenerative disc disease at L4-5 with a posterior disc bulge and superimposed right foraminal disc protrusion. Mild right neural foraminal stenosis. No central spinal canal stenosis. Note is made of splenomegaly, perisplenic and splenorenal arises in this patient with known hepatic cirrhosis. * Flexeril 5mg PO TID prn muscle spasm 6) Diarrhea--Resolved * Resolved * Stool culture/O&P (12/12): negative for O&P, salmonella, shigella, and campylobacter * Stool negative for leukocytes and occult blood * Serum C. Diff antigen and toxin: negative X2 7) Constipation-->Resolved * Resolved * Obstructive series (12/28/16): moderate constipation * Had BM following obstructive series. * Start Colace 100mg PO bid 8) History of Seizures--Chronic * Continue Keppra 500 mg PO BID * Continue Gabapentin 300 mg PO BID 9) History of Depression-- Chronic * Continue Zoloft 50 mg PO daily 9) History of Hepatitis B & C--Chronic * Monitor LFTs. Currently WNL 10) Pancytopenia--Chronic * Heme-Onc (Dr. 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 On old admission growth factors like Neupogen (Filgrastim) were recommended for low WBC. * Monitor H/H and platelets 11) Prophylactic Measure * Heparin and GI ppx held due thrombocytopenia * SCDs * Florastor 250mg PO bid Disposition: Patient completed 6 weeks of IV abx. Repeat cultures remain negative. Patient to follow-up at [facility] in regards to vegetation over prosthetic valve by original thoracic surgery. Patient will need follow-up imaging. patient verbalized understanding and agrees with plan for discharge.
--- NOTE | 2017-01-25 15:18 | CARD ---
APPROVED REPORT EKG Measurement Heart [id number] <Conclusion> Normal sinus rhythm Prolonged QT Abnormal ECG
== END 2017-01-24 14:10 | disposition home or self-care (01) | DRG 744 ==
LOC: C.ER 01:07 → C.5E 02:30 → C.6T 12-12 03:35
PROVIDERS: ADMIT Family Medicine; ATTEND Family Medicine
PROC: HZ2ZZZZ Detoxification Services for Substance Abuse Treatment (ICD-10-PCS; principal; 2016-12-04)
PROC: GZ56ZZZ Individual Psychotherapy, Supportive (ICD-10-PCS; 2016-12-04)
PROC: 05HM33Z Insertion of Infusion Device into Right Internal Jugular Vein, Percutaneous Approach (ICD-10-PCS; 2016-12-12)
PROC: 02HV33Z Insertion of Infusion Device into Superior Vena Cava, Percutaneous Approach (ICD-10-PCS; 2017-01-12)
DX: F11.23 Opioid dependence with withdrawal (principal); D61.818 Other pancytopenia; A40.9 Streptococcal sepsis, unspecified; I50.9 Heart failure, unspecified; I11.0 Hypertensive heart disease with heart failure; F33.3 Major depressive disorder, recurrent, severe with psychotic symptoms; E87.6 Hypokalemia; R09.02 Hypoxemia; I35.8 Other nonrheumatic aortic valve disorders; B18.1 Chronic viral hepatitis B without delta-agent; B18.2 Chronic viral hepatitis C; J98.11 Atelectasis; R45.851 Suicidal ideations; D73.5 Infarction of spleen; F31.9 Bipolar disorder, unspecified; F10.10 Alcohol abuse, uncomplicated; D73.1 Hypersplenism; F14.10 Cocaine abuse, uncomplicated; G40.909 Epilepsy, unspecified, not intractable, without status epilepticus; Z87.891 Personal history of nicotine dependence; Z95.1 Presence of aortocoronary bypass graft; Z95.3 Presence of xenogenic heart valve; G89.29 Other chronic pain; G47.00 Insomnia, unspecified; K44.9 Diaphragmatic hernia without obstruction or gangrene; K59.00 Constipation, unspecified; K76.6 Portal hypertension; M48.00 Spinal stenosis, site unspecified; M51.26 Other intervertebral disc displacement, lumbar region